=== PATIENT | female | born 1965 | race Caucasian/White ===

== ENCOUNTER → 2016-03-11 | Outpatient (CLI) | payer BC ==
[~2016-03-11] MED LIST: AMIT25TA9 PO; BENZ200C25 PO; BPR75T PO; CALC600T PO; CEFD300C3 PO; CHOL10003 PO; CHOL200014 PO; CITA40TA19 PO; CLOT15CR4 TP; CYCL10TA9 PO; DEXL60CA PO; DEXL60CA5 PO; DICL75TA2 PO; ESCI10TA55 PO; ESCI20TA2 PO; ESCI20TA38 PO; ESCT10T; ESCT10T PO; GABA600T2 PO; HYDR-3583; HYDR-3720 PO; HYDR-757 PO; HYDR1CAP2 PO; IBP800T PO; IBUP-15 PO; LISI10TA PO; LISI1TAB8 PO; LISI2.5T PO; LOSA1TAB15; LTRS15C TOP; METH4TAB PO; MTF500T PO; MULT-974 PO; NAPR-243 PO; NITR-65 PO; ONDA8TAB6 PO; ONDA8TAB9 PO; ONDAN4ODT PO; PANT40TA3 PO; PHEN200T27 PO; PNT40TEC PO; PRD50T PO; PRX20T PO; SCR1T1 PO; SUCR1TAB36 PO; SULF-222 PO; SULF1TAB38 PO; TIZA2TAB3 PO; TR1O15 TP; TRM50T PO; ZOLP12.5; metformin
--- OUTSIDE RECORDS SUMMARY | 2016-03-11 12:26 | XMS REPORT | Continuity of Care Document ---
Author Author [facility] Organization [facility] Address Unknown Phone Unavailable Care Team Providers Care Revival Clerk Name Role Phone Wally Patton PCP Unavailable Source Comments Some departments are not documenting in the electronic medical record. If you do not see the information that you expected, contact Release of Information in the Health Information Management department at [phone] for further assistance in locating additional records.[facility] Active Allergies and Adverse Reactions No Known Allergies Current Medications Prescription Sig. Disp. Refills Start End Date Status Date LISINOPRIL PO Take 5 mg by mouth Daily. Active (pt hasn't taken x 2 months) oxycodone/acetaminophen Take 1-2 Tabs by mouth 110 0 02/07/20 Active (PERCOCET) 5/325 mg Every 4 Hours as needed 09 tablet for Pain. senna/docusate Take 2 Tabs by mouth 50 1 02/07/20 Active (SENOKOT-S) 8.6/50 mg Twice Daily. 09 tablet Active Problems Problem Noted Date Back pain with radiation 02/06/2009 Social History Tobacco Use Types Packs/Day Years Used Date Never Smoker Alcohol Use Drinks/Week oz/Week Comments No Last Filed Vital Signs Vital Sign Reading Time Taken Blood Pressure 126/75 02/06/2009 5:50 AM HAND POTTER Pulse 82 02/06/2009 5:50 AM HAND POTTER Temperature 36.4 C (97.5 F) 02/06/2009 5:50 AM HAND POTTER Respiratory Rate - - Height 1.626 m (5' 4.02") 01/31/2009 6:00 AM HAND POTTER Weight 106 kg (233 lb 11 oz) 01/31/2009 6:00 AM HAND POTTER Body Mass Index 40.09 01/31/2009 6:00 AM HAND POTTER Oxygen Saturation 93% 02/06/2009 5:50 AM HAND POTTER Plan of Care Health Maintenance Due Date Last Done Comments Hepatitis C Screening 1965 Physical (Comprehensive) 01/12/1972 Exam Pertussis Vaccine 01/12/1976 Tetanus Vaccine 1982 Cervical Cancer Screening 1986 Breast Cancer Screening 2005 Colorectal Cancer 2015 Screening Influenza Vaccine 11/08/2015 Results from Last 3 Months Not on file
--- NOTE | 2016-03-12 19:32 | Diagnostic Imaging Report ---
Bilateral screening mammogram The current study was also evaluated with a Computer Aided Detection (CAD) system. Indication: Screening. No current complaints stated on the questionnaire. COMPARISON: 03/21/13. FINDINGS: The breasts are composed of heterogeneously dense parenchyma which may decrease mammographic sensitivity. There is stable global asymmetry in the breast parenchyma with prominent upper left breast area of density not changed from 2014. There is also mention of stability of this finding on prior report since 2007 and 2008 studies. There is no new suspicious mass or calcification noted. Allowing for technique and positional differences, no suspicious change is seen. IMPRESSION: No significant change. ACR BI-RADS Category 2: Benign findings. Result letter will be mailed to the patient. Note: At least 10% of breast cancer is not imaged by mammography. Dictated by: Dictated on workstation # [id number]
--- NOTE | 2016-03-14 11:35 | ECHOCARDIOGRAPHY REPORT ---
PROCEDURE PHYSICIAN: MEGAN MASON DATE OF PROCEDURE: 03/11/2016 TWO DIMENSIONAL ECHOCARDIOGRAM REPORT PRIMARY PHYSICIAN: Ally Manzanares OTHER PHYSICIAN: REFERRING PHYSICIAN: ORDERING PHYSICIAN: ATTENDING PHYSICIAN: Katy Do APRN FAMILY PHYSICIAN: READING PHYSICIAN: INDICATION FOR THE PROCEDURE: Heart murmur MEASUREMENTS DERIVED VALUES LV DIAMETER (LAX) NORMALS NORMALS Diastolic (3.6-5.2) Eject. Fract. (60%+/-6%) Systolic (2.3-3.9) Diastolic Vol. % Shortening (0.22-0.42) Systolic Vol. Aortic Root IVS THICKNESS Diastolic (0.6-1.1) LVPW THICKNESS Diastolic (0.6-1.1) LA DIAMETER Systolic (2.1-3.7) FINDINGS: 1. Sinus rhythm. 2. Left atrium size is normal. 3. Aortic root is normal. 4. LV size and function is normal. LVEF is 60 to 70%. 5. There is mild concentric LVH is present. Diastolic intraventricular septal diameter is 1.2 cm. 6. There is no wall motion abnormality. 7. There is no significant diastolic dysfunction present. 8. There is no pericardial effusion. 9. IVC is not well visualized. VALVULAR STRUCTURE OF THE HEART: There is mild tricuspid regurgitation with RVSP of 7 mmHg. Mild mitral regurgitation is noted. There is no significant aortic valve pathology. There is no significant pulmonic valve pathology. CONCLUSION: 1. LV and RV size and function is normal. 2. LVEF is 60 to 70%. 3. There is no significant valvular heart disease. 4. Pulmonary pressures are normal. 5. Mild concentric LVH is present. Job ID: [id number] Dictated Date: 03/13/2016 20:59:13 Paraprofessional Aide Teacher Date: 03/14/2016 11:27:54 / lindy
== END ==
LOC: RAD 12:21
PROVIDERS: ATTEND Nurse Practitioner Family
DX: Z12.31 Encounter for screening mammogram for malignant neoplasm of breast (principal)
CPT/HCPCS: 93306

== ENCOUNTER 2016-04-14 13:13 | Outpatient (RCR) | payer BC ==
[~2016-04-14 13:13] MED LIST changes: -ONDA8TAB9 PO; -TR1O15 TP
--- OUTSIDE RECORDS SUMMARY | 2016-04-14 13:17 | XMS REPORT | Continuity of Care Document ---
Author Author [facility] Organization [facility] Address Unknown Phone Unavailable Care Team Providers Care Quarter Backer Name Role Phone Wally Patton PCP Unavailable Source Comments Some departments are not documenting in the electronic medical record. If you do not see the information that you expected, contact Release of Information in the Health Information Management department at [phone] for further assistance in locating additional records.[facility] Active Allergies and Adverse Reactions No Known [...] Taken Blood Pressure 126/75 02/06/2009 5:50 AM [facility]FITTER CABIN Pulse 82 02/06/2009 5:50 AM [facility] CABIN Temperature 36.4 C (97.5 F) 02/06/2009 5:50 AM OUTF[facility] CABIN Respiratory Rate - - Height 1.626 m (5' 4.02") 01/31/2009 6:00 AM [facility] CABIN Weight 106 kg (233 lb 11 oz) 01/31/2009 6:00 AM [facility] CABIN Body Mass Index 40.09 01/31/2009 6:00 AM [facility] CABIN Oxygen Saturation 93% 02/06/2009 5:50 AM [facility] CABIN Plan of Care Health Maintenance Due Date Last Done Comments Hepatitis C Screening 1965 Physical (Comprehensive) 01/12/1972 Exam Pertussis Vaccine 01/12/1976 Tetanus Vaccine 1982 Cervical Cancer Screening 1986 Breast Cancer Screening 2005 Colorectal Cancer 2015 Screening Influenza Vaccine 11/08/2015 Results from Last 3 Months Not on file
[2016-06-28] MEDS ORDERED: TR1O15 TP (12:17)
[2016-06-28] MEDS ORDERED: ONDA8TAB9 PO (12:19)
== END 2016-07-13 | disposition home or self-care (01) ==
LOC: CARD 13:13
PROVIDERS: ATTEND Internal Medicine Interventional Cardiology
DX: R07.9 Chest pain, unspecified (principal); R06.00 Dyspnea, unspecified; I10 Essential (primary) hypertension; G47.33 Obstructive sleep apnea (adult) (pediatric)
CPT/HCPCS: 93225; 93226

== ENCOUNTER 2016-06-28 09:36 | Emergency (ER) | payer BC ==
[~2016-06-28] VITALS: Ht 165.1 cm; Wt 104.3 kg
[2016-06-28 10:59] LABS: BASOPHILS % (AUTO) 0 % (0-10); EOSINOPHILS % (AUTO) 0 % (0-10); LYMPHOCYTES # (AUTO) 0.4 X 10^3 (1.0-4.0); LYMPHOCYTES % (AUTO) 5 % (12-44); MEAN CORPUSCULAR HEMOGLOBIN 26 PG (25-34); MEAN CORPUSCULAR HGB CONC 33 G/DL (32-36); MEAN CORPUSCULAR VOLUME 81 FL (80-99); MEAN PLATELET VOLUME 10.4 FL (7.4-10.4); MONOCYTES # (AUTO) 0.5 X 10^3 (0.0-1.0); MONOCYTES % (AUTO) 6 % (0-12); NEUTROPHILS # (AUTO) 7.2 X 10^3 (1.8-7.8); NEUTROPHILS % (AUTO) 88 % (42-75); PLATELET COUNT 309 10^3/uL (130-400); RED BLOOD COUNT 5.09 10^6/uL (4.35-5.85); RED CELL DISTRIBUTION WIDTH 14.5 % (10.0-14.5); WHITE BLOOD COUNT 8.2 10^3/uL (4.3-11.0)
[2016-06-28] MEDS ORDERED: LACTATED RINGERS 1,000 ML IV SCH ×2 (11:00→11:30)
--- NOTE | 2016-06-28 11:05 | ED GI ---
General Chief Complaint: Abdominal/GI Problems Stated Complaint: VOMITING, DIARRHEA Nursing Triage Note: PT C/O N/V/D SINCE APPROX 0 LAST NOC. PT IS FEBRILE AT THIS TIME AND IS ALSO C/O BODY ACHES. Sepsis Screen: Possible Sepsis Risk Source of Information: Patient Exam Limitations: No Limitations History of Present Illness Time Seen By Provider: 11:03 Initial Comments To ER with reports of nausea vomiting diarrhea since last night. This began about 10 p.m. She states that she spent most of the night on the toilet vomiting and with diarrhea. She states the diarrhea was watery and without obvious blood or mucus. She denies any recent travel history or eating out recently antibiotic use. She also reports some shortness of breath since last night and some intermittent left leg swelling as well as a rash to the anterior left lower leg. Rash has been present for several months and she initially thought this was just eczema she states it will not go away. No fevers. She denies abdominal pain but does report some joint pains. Timing/Duration: 12-24 Hours Severity/Quality: Mild Radiation: No Radiation Associated Symptoms: No Back Pain, No Chest Pain, No Diaphoresis, No Fever/ Chills, No Fatigue, No Headache, No Heartburn, Nausea/Vomiting, No Rash, Shortness of Air, No Swelling/Mass in Abdomen, No Syncope, No Weakness Allergies and Home Medications Allergies Coded Allergies: No Known Drug Allergies (Unverified , 03/01/09) Home Medications Amitriptyline HCl 25 Mg Tablet, 25 MG PO HS, (Reported) Cholecalciferol (Vitamin D3) 2,000 Unit Tablet, 2,000 UNIT PO DAILY, (Reported) Clotrimazole/Betamethasone Dip 15 Gm Cream..g., 15 GM TP BID, #30 Prescribed by: TARIQ GUTIERREZ on 10/26/15 1411 Dexlansoprazole 60 Mg Cap.bp, 60 MG PO DAILY, #30 Prescribed by: TARIQ GUTIERREZ on 10/26/15 1411 Diclofenac Sodium 75 Mg Tablet., 75 MG PO BID, (Reported) Escitalopram Oxalate 10 Mg Tablet, 10 MG PO HS, (Reported) Gabapentin 600 Mg Tablet, 600 MG PO TID, (Reported) Lisinopril/Hydrochlorothiazide 1 Each Tablet, 1 TAB PO DAILY, (Reported) Multivitamin 1 Each Tablet, 1 EACH PO DAILY, (Reported) Pantoprazole Sodium 40 Mg Tablet.dr, 40 MG PO DAILY, (Reported) Sucralfate 1 Gm Tablet, 1 GM PO QID, #120 Prescribed by: TARIQ GUTIERREZ on 10/26/15 1411 Tizanidine HCl 2 Mg Tablet, 2 MG PO HS, (Reported) Triamcinolone Acet 15 Gm Oint, 1 GM TP BID, #1 Apply a small amount topically to the affected area on the left leg twice daily for 5-7 days. Prescribed by: NE BURGOS on 06/28/16 1217 Review of Systems Constitutional: see HPI EENTM: No Symptoms Reported Respiratory: See HPI, Shortness of Air Gastrointestinal: See HPI, Abdominal Pain Genitourinary: No Symptoms Reported Musculoskeletal: no symptoms reported Skin: no symptoms reported Psychiatric/Neurological: No Symptoms Reported Endocrine: No Symptoms Reported Hematologic/Lymphatic: No Symptoms Reported Past Pluuobi-Xkrduq-[id number] Hx Patient Social History Alcohol Use: Denies Use Recreational Drug Use: No Smoking Status: Never a Smoker 2nd Hand Smoke Exposure: No Recent Foreign Travel: No Contact w/Someone Who Travel: No Recent Infectious Disease Expo: No Recent Hopitalizations: No Immunizations Up To Date Tetanus Booster (TDap): More than 5yrs Date of Influenza Vaccine: Dec 16, 2013 Seasonal Allergies Seasonal Allergies: No Surgeries HX Surgeries: Yes (BACK SX RODS PLACED, neck sx) Surgeries: Gallbladder, Hysterectomy, Orthopedic Respiratory Hx Respiratory Disorders: Yes (sleep apnea-uses cpap) Respiratory Disorders: Sleep Apnea Cardiovascular Hx Cardiac Disorders: No Cardiac Disorders: Hypertension Neurological Hx Neurological Disorders: No Reproductive System Hx Reproductive Disorders: Yes Sexually Transmitted Disease: No HIV/AIDS: No Female Reproductive Disorders: Polycystic Ovarian Dis 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 Genitourinary Hx Genitourinary Disorders: No Gastrointestinal Hx Gastrointestinal Disorders: No Gastrointestinal Disorders: Gastroesophageal Reflux Musculoskeletal Hx Musculoskeletal Disorders: Yes Musculoskeletal Disorders: Back Injury Endocrine Hx Endocrine Disorders: No Endocrine Disorders: Diabetes, Non-Insulin dep HEENT HX ENT Disorders: No Cancer Hx Cancer: No Psychosocial Hx Psychiatric Problems: No Behavioral Health Disorders: Anxiety Integumentary HX Skin/Integumentary Disorder: No Blood Transfusions Hx Blood Disorders: No Adverse Reaction to a Blood Tr: No Family Medical History Significant Family History: No Pertinent Family Hx Physical Exam Vital Signs VS - Last 72 Hours, by Label 06/28/16 10:40 Temp 100.3 Pulse 124 Resp 16 B/P (MAP) 185/115 Pulse Ox 97 O2 Delivery Room Air Capillary Refill : Less Than 3 Seconds General Appearance: WD/WN, no apparent distress HEENT: PERRL/EOMI, normal ENT inspection Neck: non-tender, full range of motion Respiratory: normal breath sounds, no respiratory distress, no accessory muscle use Cardiovascular: no murmur, tachycardia Gastrointestinal: normal bowel sounds, non tender, soft Extremities: normal range of motion, non-tender, swelling (1+ pitting edema left lower extremity), other (is a palm-sized area of a slightly scaly erythematous/pinkish rash to the anterior left lower leg) Neurologic/Psychiatric: alert, normal mood/affect, oriented x 3 Skin: normal color, warm/dry Progress/Results/Core Measures Results/Orders Lab Results Laboratory Tests Test 06/28/16 10:40 06/28/16 12:08 Range/Units White Blood Count 8.2 4.3-11.0 10^3/uL Red Blood Count 5.09 4.35-5.85 10^6/uL Hemoglobin 13.4 11.5-16.0 G/DL Hematocrit 41 35-52 % Mean Corpuscular Volume 81 80-99 FL Mean Corpuscular Hemoglobin 26 25-34 PG Mean Corpuscular Hemoglobin Concent 33 32-36 G/DL Red Cell Distribution Width 14.5 10.0-14.5 % Platelet Count 309 130-400 10^3/uL Mean Platelet Volume 10.4 7.4-10.4 FL Neutrophils (%) (Auto) 88 H 42-75 % Lymphocytes (%) (Auto) 5 L 12-44 % Monocytes (%) (Auto) 6 0-12 % Eosinophils (%) (Auto) 0 0-10 % Basophils (%) (Auto) 0 0-10 % Neutrophils # (Auto) 7.2 1.8-7.8 X 10^3 Lymphocytes # (Auto) 0.4 L 1.0-4.0 X 10^3 Monocytes # (Auto) 0.5 0.0-1.0 X 10^3 Eosinophils # (Auto) 0.0 0.0-0.3 10^3/uL Basophils # (Auto) 0.0 0.0-0.1 10^3/uL Neutrophils % (Manual) 86 % Lymphocytes % (Manual) 7 % Monocytes % (Manual) 5 % Eosinophils % (Manual) 0 % Basophils % (Manual) 0 % Band Neutrophils 0 % Blood Morphology Comment NORMAL Sodium Level 141 135-145 MMOL/L Potassium Level 4.3 3.6-5.0 MMOL/L Chloride Level 108 H 98-107 MMOL/L Carbon Dioxide Level 21 21-32 MMOL/L Anion Gap 12 5-14 MMOL/L Blood Urea Nitrogen 11 7-18 MG/DL Creatinine 0.76 0.60-1.30 MG/DL Estimat Glomerular Filtration Rate > 60 BUN/Creatinine Ratio 14 Glucose Level 126 H 70-105 MG/DL Calcium Level 9.2 8.5-10.1 MG/DL Total Bilirubin 0.5 0.1-1.0 MG/DL Aspartate Amino Transf (AST/SGOT) 32 5-34 U/L Alanine Aminotransferase (ALT/SGPT) 34 0-55 U/L Alkaline Phosphatase 135 40-136 U/L B-Type Natriuretic Peptide 12.5 <100.0 PG/ML Total Protein 7.6 6.4-8.2 G/DL Albumin 4.4 3.2-4.5 G/DL Lipase 21 8-78 U/L My Orders Orders - NE BURGOS AUTOMOTIVE LEASING SALES REPRESENTATIVE Cbc With Automated Diff (06/28/16 10:53) Comprehensive Metabolic Panel (06/28/16 10:53) Ua Culture If Indicated (06/28/16 10:53) Lipase (06/28/16 10:53) Saline Lock/Iv-Start (06/28/16 10:53) Lactated Ringers (Lr 1000 Ml Iv Solution (06/28/16 11:00) Manual Differential (06/28/16 10:40) Us Venous Lower Ext Lt (06/28/16 11:02) Ct Angio Chest W (06/28/16 11:02) Iohexol Injection (Omnipaque 350 Mg/Ml 1 (06/28/16 11:15) Ns (Ivpb) (Sodium Chloride 0.9% Ivpb Bag (06/28/16 11:15) Lactated Ringers (Lr 1000 Ml Iv Solution (06/28/16 11:30) BNP (06/28/16 11:18) Medications Given in ED Current Medications Medications Dose Ordered Sig/Malka Route Start Time Stop Time Status Last Admin Dose Admin Iohexol 150 ml ONCE ONCE IV 06/28/16 11:15 06/28/16 11:16 DC 06/28/16 11:24 125 ML Sodium Chloride 100 ml ONCE ONCE IV 06/28/16 11:15 06/28/16 11:16 DC 06/28/16 11:24 80 ML Vital Signs/I&O Vital Sign - Last 12Hours 06/28/16 10:40 Temp 100.3 Pulse 124 Resp 16 B/P (MAP) 185/115 Pulse Ox 97 O2 Delivery Room Air Blood Pressure Mean: 138 Diagnostic Imaging Diagonstic Imaging: Xray Comments NAME: HARRY MEDEL [employer] REC#: [id number] PT STATUS: REG ER : 1965 PHYSICIAN: NE BURGOS APRN ADMIT DATE: 06/28/16/ER Draft Date of Exam:06/28/16 CT ANGIO CHEST W PROCEDURE: CT angiography of the chest with contrast. TECHNIQUE: Multiple contiguous axial images were obtained through the chest after uneventful bolus administration of intravenous contrast. Reconstructed CTA MIP acquisitions were also performed. INDICATION: Left foot swelling The lungs are clear. There are no effusions or pneumothoraces. There are no pulmonary emboli seen. Aorta appears normal. There is no hilar or mediastinal lymphadenopathy. Impression: Negative CTA chest. Dictated on workstation # [id number] Dict: 06/28/16 1142 Trans: 06/28/16 1150 [facility] [id number] Interpreted by: CARLOS TO Electronically signed by: Departure Impression Impression: Primary Impression: Nausea vomiting and diarrhea Additional Impressions: Dyspnea Volume depletion Departure-Patient Inst. Decision time for Depature: 12:14 Referrals: JONNATHAN MANZANARES MD (PCP) Primary Care Physician Patient Instructions: [id number] Add. Discharge Instructions: 1. Use the steroid cream to your left lower leg twice daily for 5 days 2. Follow-up with Dr. Manzanares 3. Use [id number]-jpesieq Imodium as needed for diarrhea Or. Return to ER for any abdominal pain, high fevers or other concerns. All discharge instructions reviewed with patient and/or family. Voiced understanding. Scripts Ondansetron (Zofran Odt) 8 Mg Tab.rapdis 8 MG PO Q6H Y for NAUSEA/VOMITING-1ST LINE, #10 TAB Prov: NE BURGOS APRN 06/28/16 Triamcinolone Acet (Triamcinolone Acetonide 0.1% Ointment) 15 Gm Oint 1 GM TP BID, #1 TUBE Apply a small amount topically to the affected area on the left leg twice daily for 5-7 days. Prov: NE BURGOS APRN 06/28/16 Copy Copies To 1: JONNATHAN MANZANARES MD, PETER J APRN Jun 28, 2016 11:05
[2016-06-28 11:11] LABS: ALANINE AMINOTRANSFERASE 34 U/L (0-55); ALBUMIN 4.4 G/DL (3.2-4.5); ANION GAP 12 MMOL/L (5-14); ASPARTATE AMINO TRANSFERASE 32 U/L (5-34); BILIRUBIN,TOTAL 0.5 MG/DL (0.1-1.0); BLOOD UREA NITROGEN 11 MG/DL (7-18); BUN/CREATININE RATIO 14; CALCIUM 9.2 MG/DL (8.5-10.1); CARBON DIOXIDE 21 MMOL/L (21-32); CHLORIDE 108 MMOL/L (98-107); CREATININE SERUM 0.76 MG/DL (0.60-1.30); GFR ESTIMATED > 60; GLUCOSE 126 MG/DL (70-105); LIPASE 21 U/L (8-78); POTASSIUM 4.3 MMOL/L (3.6-5.0); SODIUM 141 MMOL/L (135-145); TOTAL PROTEIN 7.6 G/DL (6.4-8.2)
[2016-06-28] MEDS ORDERED: NS 100 ML (IVPB) BAG IV ONE (11:15)
[2016-06-28] MEDS ORDERED: IOHEXOL 350 MG/ML 150 ML (OMNIPAQUE 350) VIAL IV ONE (11:15)
[2016-06-28 11:22] LABS: BAND NEUTROPHILS 0 %; BASOPHILS % (MANUAL) 0 %; EOSINOPHILS % (MANUAL) 0 %; LYMPHOCYTES % (MANUAL) 7 %; NEUTROPHILS % (MANUAL) 86 %
--- NOTE | 2016-06-28 11:51 | Diagnostic Imaging Report ---
PROCEDURE: CT angiography of the chest with contrast. TECHNIQUE: Multiple contiguous axial images were obtained through the chest after uneventful bolus administration of intravenous contrast. Reconstructed CTA MIP acquisitions were also performed. INDICATION: Left foot swelling The lungs are clear. There are no effusions or pneumothoraces. There are no pulmonary emboli seen. Aorta appears normal. There is no hilar or mediastinal lymphadenopathy. Impression: Negative CTA chest. Dictated by: Dictated on workstation # [id number]
[2016-06-28 12:16] LABS: BILIRUBIN,URINE NEGATIVE (NEGATIVE); KETONES,URINE NEGATIVE (NEGATIVE); LEUKOCYTE ESTERASE ,URINE 1+ (NEGATIVE); NITRITE,URINE NEGATIVE (NEGATIVE); PH,URINE 6 (5-9); PROTEIN,URINE NEGATIVE (NEGATIVE); UROBILINOGEN,URINE NORMAL (NORMAL)
[2016-06-28] MEDS ORDERED: TR1O15 TP (12:17)
[2016-06-28] MEDS ORDERED: ONDA8TAB9 PO (12:19)
[2016-06-28 12:27] LABS: SQUAMOUS EPITHELIAL CELL,UR 0-2 /HPF; WBC,URINE RARE /HPF
--- NOTE | 2016-06-28 12:46 | Diagnostic Imaging Report ---
PROCEDURE: US left lower extremity venous. TECHNIQUE: Multiple real-time grayscale images were obtained over the left lower extremity in various projections. Additional duplex Doppler and color Doppler images were also obtained. INDICATION: Leg swelling and shortness of breath. FINDINGS: There is normal compression, flow and augmentation demonstrated in the left common femoral vein to the popliteal vein. Greater saphenous junction is patent. Visualized calf veins are patent. IMPRESSION: No sonographic evidence of left lower extremity deep venous thrombosis. Dictated by: Dictated on workstation # [id number]
[2016-06-28] MEDS ORDERED: ONDANSETRON 4 MG/2 ML (SDV) Z0FRAN IVP ONE (13:00)
[2016-06-28 14:18] VITALS: BP 147/100
== END 2016-06-28 14:18 | disposition home or self-care (01) ==
LOC: EDUNIT# 09:36 → ER 09:38
DX: R11.2 Nausea with vomiting, unspecified (principal); R19.7 Diarrhea, unspecified; R06.00 Dyspnea, unspecified; E86.9 Volume depletion, unspecified; R22.42 Localized swelling, mass and lump, left lower limb; I10 Essential (primary) hypertension; Z79.899 Other long term (current) drug therapy
CPT/HCPCS: 36415; 71275; 80053; 81000; 83690; 83880; 85007; 85027; 96361; 96374

== ENCOUNTER 2016-08-08 11:12 | Outpatient (RCR) | payer BC ==
[~2016-08-08 11:12] MED LIST changes: +ONDA8TAB9 PO; +TR1O15 TP
== END 2016-08-22 08:05 | disposition home or self-care (01) ==
PROVIDERS: ATTEND Physician Assistant
DX: M48.06 Spinal stenosis, lumbar region (principal); M54.16 Radiculopathy, lumbar region; M46.1 Sacroiliitis, not elsewhere classified

== ENCOUNTER → 2017-05-19 | Outpatient (CLI) | payer MEDICARE, BC ==
--- NOTE | 2017-05-19 19:14 | Diagnostic Imaging Report ---
INDICATION: Digital mammogram bilateral screening. This study was compared to the prior exams of 03/11/16 and 03/21/13. At this time, there are no current complaints. The current study was also evaluated with a Computer Aided Detection (CAD) system. FINDINGS: The fibroglandular tissue in both breasts is heterogeneously dense. This does limit the sensitivity of this exam. Overall, there does not appear to have been any significant change when compared to the prior study. No primary or secondary sign of malignancy is noted. IMPRESSION: There is no radiographic evidence for malignancy. ACR BI-RADS Category 1: Negative. Result letter will be mailed to the patient. Note: At least 10% of breast cancer is not imaged by mammography. Dictated by: Dictated on workstation # [id number]
== END ==
LOC: RAD 08:12
PROVIDERS: ATTEND Nurse Practitioner Family
DX: Z12.31 Encounter for screening mammogram for malignant neoplasm of breast (principal)
CPT/HCPCS: 77067

== ENCOUNTER 2017-09-12 12:42 | Emergency (ER) | payer MEDICARE, OTHER ==
[~2017-09-12] VITALS: Ht 165.1 cm; Wt 104.3 kg
--- NOTE | 2017-09-12 14:13 | ED EENT ---
History of Present Illness General Chief Complaint: Eye Problems Stated Complaint: R EYE SWELLING/UNKNOWN CAUSE Nursing Triage Note: PT AMBULATED TO 3 W/O DIFFICULTIES. PT STATES SHE BEGAN HAVING R EYE SWELLING THAT BEGAN A COUPLE OF DAYS AGO. PT ALSO STATES THERE IS TENDERNESS IN THE LYMPH NODES ON THE RIGHT SIDE OF HER NECK. PT DENIES ANY INJURY, FOREIGN OBJECT OR TRAUMA. PT STATES SHE DID HAVE THE LENSES IN BOTH EYES REPLACED APPROXIMATELY 6 MONTHS AGO. History of Present Illness Date Seen by Provider: Sep 12, 2017 Time Seen by Provider: 13:45 Initial Comments 52-year-old female presents for right periorbital swelling and pain. She reports this is been going on for approximately 3 days with no improvement. She denies any purulent discharge from the eye. She reports trace blurry vision and minimal eye pain. She had cataract surgery right eye April 2017 and left eye March 2017. She's had no trauma to the right eye and denies feeling of foreign body sensation. No pre-arrival treatment to the right eye. She has been taking ibuprofen and Tylenol for pain and low-grade fevers. Timing/Duration: gradual Location: eye (R) Prearrival Treatment: over the counter meds Associated Symptoms: fever (low-grade 99-100) Allergies and Home Medications Allergies Coded Allergies: No Known Drug Allergies (Unverified , 03/01/09) Home Medications Amitriptyline HCl 25 Mg Tablet, 25 MG PO HS, (Reported) Amoxicillin/Potassium Clav 1 Each Tablet, 1 EACH PO BID Prescribed by: EDU ANN on 09/12/17 1435 Cholecalciferol (Vitamin D3) 2,000 Unit Tablet, 2,000 UNIT PO DAILY, (Reported) Clotrimazole/Betamethasone Dip 15 Gm Cream..g., 15 GM TP BID Prescribed by: TARIQ GUTIERREZ on 10/26/15 1411 Dexlansoprazole 60 Mg Cap.bp, 60 MG PO DAILY Prescribed by: TARIQ GUTIERREZ on 10/26/15 1411 Diclofenac Sodium 75 Mg Tablet.dr, 75 MG PO BID, (Reported) Escitalopram Oxalate 10 Mg Tablet, 10 MG PO HS, (Reported) Gabapentin 600 Mg Tablet, 600 MG PO TID, (Reported) Lisinopril/Hydrochlorothiazide 1 Each Tablet, 1 TAB PO DAILY, (Reported) Multivitamin 1 Each Tablet, 1 EACH PO DAILY, (Reported) Ondansetron 8 Mg Tab.rapdis, 8 MG PO Q6H PRN for NAUSEA/VOMITING-1ST LINE Prescribed by: NE BURGOS on 06/28/16 1219 Pantoprazole Sodium 40 Mg Tablet.dr, 40 MG PO DAILY, (Reported) Sucralfate 1 Gm Tablet, 1 GM PO QID Prescribed by: TARIQ GUTIERREZ on 10/26/15 1411 Tizanidine HCl 2 Mg Tablet, 2 MG PO HS, (Reported) Triamcinolone Acet 15 Gm Oint, 1 GM TP BID Apply a small amount topically to the affected area on the left leg twice daily for 5-7 days. Prescribed by: NE BURGOS on 06/28/16 1217 Patient Home Medication List Home Medication List Reviewed: Yes Review of Systems Constitutional: no symptoms reported, see HPI Eyes: Blurred Vision; Denies Drainage, Denies Decreased Acuity, Denies Foreign Body Sensation; Inflammation, Pain, Photophobia; Denies Previous Injury, Denies Shadows, Denies Tunnel Vision, Denies Vision Changes, Denies Contact Lenses All Other Systems Reviewed Negative Unless Noted: Yes Past Hnzgbqb-Qnbdqk-Nwflbn Hx Past Med/Social Hx: Reviewed Nursing Past Med/Soc Hx Patient Social History Alcohol Use: Denies Use Recreational Drug Use: No 2nd Hand Smoke Exposure: No Recent Foreign Travel: No Contact w/Someone Who Travel: No Recent Infectious Disease Expo: No Recent Hopitalizations: No Physical Abuse: No Sexual Abuse: No Immunizations Up To Date Tetanus Booster (TDap): More than 5yrs Date of Influenza Vaccine: Dec 16, 2013 Seasonal Allergies Seasonal Allergies: No Past Medical History Surgeries: Yes (BACK SX RODS PLACED, neck sx) Gallbladder, Hysterectomy, Orthopedic Respiratory: Yes (sleep apnea-uses cpap) Sleep Apnea Cardiac: Yes Hypertension Neurological: No Reproductive Disorders: Yes Female Reproductive Disorders: Polycystic Ovarian Dis [employer] History: Hysterectomy Sexually Transmitted Disease: No HIV/AIDS: No Gastrointestinal: No Gastroesophageal Reflux Musculoskeletal: Yes Back Injury Endocrine: No Diabetes, Non-Insulin dep Cancer: No Psychosocial: No Anxiety Nursing Suicide Risk Score: 0 Integumentary: No Blood Disorders: No Adverse Reaction/Blood Tranf: No Family Medical History No Pertinent Family Hx Visual Acuity : Eye Location: Right Vision Acuity Degree: 20/30 Physical Exam Vital Signs Vital Signs - First Documented 09/12/17 09/12/17 13:00 14:45 Temp 99.2 Pulse 82 Resp 16 B/P (MAP) 154/110 (125) Pulse Ox 97 O2 Delivery Room Air Height, Weight, BMI Height: 5', 5.00" Weight: 230lbs 0.0oz, [id number] Method:Stated ,38.3BMI General Appearance: WD/WN, no apparent distress Eyes: right eye lid inflammation, right eye papilledema, right eye other ( marked periorbital inflammation, no pain with extraocular eye movement. No frontal or maxillary sinus tenderness.); left eye normal inspection; bilateral eye PERRL, bilateral eye EOMI Ears: bilateral ear auricle normal, bilateral ear canal normal, bilateral ear TM normal Nose: normal inspection; No active bleeding, No discharge Mouth/Throat: normal mouth inspection, pharynx normal Neck: full range of motion, supple, normal inspection, lymphadenopathy (R) Cardiovascular: normal peripheral pulses, regular rate, rhythm Respiratory: chest non-tender, lungs clear Neurologic/Psychiatric: no motor/sensory deficits, alert, normal mood/affect, oriented x 3 Skin: normal color, warm/dry Progress/Results/Core Measures Results/Orders My Orders Orders - EDU ANN Ct Orbit Wo (09/12/17 13:39) Acetaminophen Tablet/Caplet (Tylenol T (09/12/17 14:31) Vital Signs/I&O 09/12/17 09/12/17 13:00 14:45 Temp 99.2 98.4 Pulse 82 88 Resp 16 14 B/P (MAP) 154/110 (125) 132/92 Pulse Ox 97 O2 Delivery Room Air Room Air Blood Pressure Mean: 125 Progress Progress Note : Time: 13:45 Progress Note Initial evaluation completed, recommended orbital CT and reevaluation. [address] findings with the patient, soft tissue cellulitis but no abscess or inflammation extending into the orbit. Will give Tylenol 650 mg orally for pain. discharge instructions and return precautions discussed with the patient, all questions answered. Diagnostic Imaging Diagonstic Imaging: CT Plain Films/CT/US/NM/MRI: other (orbital) Comments NAME: [facility] REC#: [id number] PT STATUS: REG ER : 1965 PHYSICIAN: EDU ANN ADMIT DATE: 09/12/17/ER Draft Date of Exam:09/12/17 CT ORBIT WO PROCEDURE: CT orbit without contrast. TECHNIQUE: Multiple contiguous axial images were obtained through the facial bones without the use of intravenous contrast. INDICATION: Facial swelling The axial images do show soft tissue edema/inflammation along the anterior aspect of the right maxillary sinus and, to a lesser extent, the right globe. The soft tissue edema appears to be confined to the preseptal area. There is no sign of an abscess. The globe itself is generally unremarkable and appears similar to the prior CT facial bone exam of 04/09/2013. The extraocular muscles and optic nerve are unremarkable and there is no sign of a retrobulbar mass. The left globe and orbital contents are also unremarkable. The bone windows show no sign of a fracture or of a destructive lesion. The sinuses, where visualized, and the intracranial contents, where visualized, are unremarkable. IMPRESSION: 1. There is soft tissue edema/inflammation along the anterior aspect of the right maxillary antrum and, to a lesser degree, the right globe. There is no sign of an abscess. 2. There is no evidence of an injury to the right globe and the intraorbital contents appear undisturbed. 3. No other abnormality is identified. Dictated on workstation # [id number] Dict: 09/12/17 1406 Trans: 09/12/17 1417 [facility] [id number] Interpreted by: SIMRAN SENA MD Electronically signed by: Departure Impression Primary Impression: Preseptal cellulitis of right eye Disposition: 01 HOME, SELF-CARE Condition: Stable Departure-Patient Inst. Decision time for Depature: 14:20 Referrals: JONNATHAN VANCE MD (PCP/Family) Primary Care Physician Patient Instructions: Cellulitis (Skin Infection), Adult (DC), Orbital Cellulitis Add. Discharge Instructions: Warm moist compresses to right eye 5-10 minutes every hour while awake. You may irrigate your eye with sterile contact saline rinse. Take all antibiotic as prescribed, even if I is improving. 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 You may alternate between Tylenol 650 mg and ibuprofen 600 mg every 4 hours for pain or fever. Return to emergency department or see your primary care provider immediately if extreme pain when moving the eye, discolored or foul smelling drainage from the eye, fever greater than 101 not relieved by Tylenol or ibuprofen, body aches, vision changes or new problems. All discharge instructions reviewed with patient and/or family. Voiced understanding. Scripts Amoxicillin/Potassium Clav (Augmentin 875-125 Tablet) 1 Each Tablet 1 EACH PO BID, #20 TAB 0 Refills Prov: EDU ANN 09/12/17 Copy Copies To 1: JONNATHAN VANCE MD, AMY ARNP Sep 12, 2017 14:13
--- NOTE | 2017-09-12 14:17 | Diagnostic Imaging Report ---
PROCEDURE: CT orbit without contrast. TECHNIQUE: Multiple contiguous axial images were obtained through the facial bones without the use of intravenous contrast. INDICATION: Facial swelling The axial images do show soft tissue edema/inflammation along the anterior aspect of the right maxillary sinus and, to a lesser extent, the right globe. The soft tissue edema appears to be confined to the preseptal area. There is no sign of an abscess. The globe itself is generally unremarkable and appears similar to the prior CT facial bone exam of 04/09/2013. The extraocular muscles and optic nerve are unremarkable and there is no sign of a retrobulbar mass. The left globe and orbital contents are also unremarkable. The bone windows show no sign of a fracture or of a destructive lesion. The sinuses, where visualized, and the intracranial contents, where visualized, are unremarkable. IMPRESSION: 1. There is soft tissue edema/inflammation along the anterior aspect of the right maxillary antrum and, to a lesser degree, the right globe. There is no sign of an abscess. 2. There is no evidence of an injury to the right globe and the intraorbital contents appear undisturbed. 3. No other abnormality is identified. Dictated by: Dictated on workstation # [id number]
[2017-09-12] MEDS ORDERED: ACETAMINOPHEN 325 MG TABLET PO STA (14:31)
[2017-09-12] MEDS ORDERED: AMOX-358 PO (14:35)
[2017-09-12 14:45] VITALS: BP 132/92
== END 2017-09-12 14:44 | disposition home or self-care (01) ==
LOC: EDUNIT# 12:42 → ER 12:43
DX: H05.011 Cellulitis of right orbit (principal); G47.30 Sleep apnea, unspecified; K21.9 Gastro-esophageal reflux disease without esophagitis; E11.9 Type 2 diabetes mellitus without complications; F41.9 Anxiety disorder, unspecified; I10 Essential (primary) hypertension; Z90.710 Acquired absence of both cervix and uterus; Z87.448 Personal history of other diseases of urinary system
CPT/HCPCS: 70480

== ENCOUNTER → 2018-10-25 | Outpatient (CLI) | payer MEDICARE, OTHER ==
[~2018-10-25] MED LIST changes: +AMOX-358 PO; -GABA600T2 PO; +GBPN600T PO; +HYDR-4226 PO; -HYDR-757 PO; -TIZA2TAB3 PO; +TIZA2TAB4 PO
--- NOTE | 2018-10-25 11:46 | Diagnostic Imaging Report ---
CLINICAL INDICATION: Patient with chronic neck pain with history of previous cervical spine surgery in 2017. Patient having increasing pain. EXAM: MRI of the cervical spine performed without IV contrast. Sequences include sagittal T2, sagittal T1, sagittal T2 fat-sat, and axial T2. COMPARISON: MRI of the cervical spine without contrast dated 05/17/2015. FINDINGS: Again seen postop changes to the cervical spine with C6-C7 anterior cervical disc fusion hardware with susceptibility artifact. There is no paraspinal soft tissue abnormality or fluid collection. Limited visualization of the posterior fossa is unremarkable. Cervical spinal cord has normal cord caliber with no abnormal signal. C1-C2: Unremarkable. C2-C3: Unremarkable. C3-C4: There is again seen small left uncinate spur which causes at least mild left neural foramen narrowing. There is no significant central canal or right neural foramen narrowing. C4-C5: There is subtle left uncinate spur. There is no significant central spinal canal or neural foramen narrowing. C5-C6: Again seen small posterior and left paracentral disc protrusion/herniation which has not significantly changed in size. There is resolution of the previously seen annular tear in the region. There is stable ligamentum flavum buckling and mild bilateral facet arthropathy. Stable moderate left neural foramen narrowing and moderate central canal narrowing. There is no significant right neural foramen narrowing. C6-C7: Stable mild left neural foramen narrowing suspected from vertebral body prominence. There is no significant central canal or right neural foramen narrowing. C7-T1: There is mild bilateral facet arthropathy. There is no significant central spinal canal or neural foramen narrowing. IMPRESSION: 1: There is interval resolution of the previously seen small annular tear involving the C5-C6 posterior disc herniation. Otherwise, there is stable appearance of the posterior disc herniation at C5-C6 level, facet arthropathy, and ligamentum flavum buckling which cause moderate left neural foramen narrowing and moderate central canal stenosis. 2: Stable C6-C7 anterior cervical disc fusion. 3: The remainder of this exam shows no significant interval change compared to the prior study of comparison. Dictated by: Dictated on workstation # [id number]
== END ==
LOC: RAD 10:03
PROVIDERS: ATTEND Nurse Practitioner Family
DX: M50.322 Other cervical disc degeneration at C5-C6 level (principal); M48.02 Spinal stenosis, cervical region; M50.222 Other cervical disc displacement at C5-C6 level; M46.92 Unspecified inflammatory spondylopathy, cervical region; Z98.1 Arthrodesis status
CPT/HCPCS: 72141

== ENCOUNTER 2019-02-07 10:40 | Emergency (ER) | payer MEDICARE, OTHER ==
[~2019-02-07] VITALS: Ht 165 cm; Wt 108.7 kg
--- NOTE | 2019-02-07 11:17 | ED Back Pain ---
General Chief Complaint: Back Problems Stated Complaint: BACK PAIN Source of Information: Patient Exam Limitations: No Limitations History of Present Illness Date Seen by Provider: Feb 07, 2019 Time Seen by Provider: 11:00 Initial Comments This is a 58-year-old female who presents to the emergency department with her with complaints exacerbation of chronic lower back pain with radiation to bilateral lower extremities. Patient denies having retention or incontinence of bowel or bladder. Patient reports that she was evaluated by her primary care provider recently for a rash on both of her upper extremities and giving a steroid shots as well as a steroid dose pack which did not help either of the rash or her back pain. Patient reports that she is to have another back surgery as well as neck surgery with Dr. Samuels but denies being in contact with him regarding the pain and she is currently experiencing.She denies any new injuries, just pain is not tolerable and more persistent. She is taking Ibuprofen 600-800 mg every 3-4 hours. Location: Lumbar Spine Timing/Duration: 1 Week Severity: Mild Radiation: Lower Legs Method of Injury: Other (no injury) Modifying Factors: Worse With Immobilization, Worse With Movement; Improves With Pain Medication Associated Symptoms: muscle spasms; No weakness; numbness in legs/feet, tingling in legs/feet; No sensory/motor loss; lower back pain; No loss of bladder control, No loss of bowel control Allergies and Home Medications Allergies Coded Allergies: No Known Drug Allergies (Unverified , 03/01/09) Home Medications Amitriptyline HCl 25 Mg Tablet, 25 MG PO HS, (Reported) Amoxicillin/Potassium Clav 1 Each Tablet, 1 EACH PO BID Prescribed by: EDU ANN on 09/12/17 1435 Cholecalciferol (Vitamin D3) 2,000 Unit Tablet, 2,000 UNIT PO DAILY, (Reported) Clotrimazole/Betamethasone Dip 15 Gm Cream..g., 15 GM TP BID Prescribed by: TARIQ GUTIERREZ on 10/26/15 1411 Cyclobenzaprine HCl 10 Mg Tablet, 10 MG PO Q8H PRN for SPASMS Prescribed by: EDU ANN on 02/07/19 1140 Dexlansoprazole 60 Mg Cap.bp, 60 MG PO DAILY Prescribed by: TARIQ GUTIERREZ on 10/26/15 1411 Diclofenac Sodium 75 Mg Tablet., 75 MG PO BID, (Reported) Escitalopram Oxalate 10 Mg Tablet, 10 MG PO HS, (Reported) Gabapentin 600 Mg Tablet, 600 MG PO TID, (Reported) Lisinopril/Hydrochlorothiazide 1 Each Tablet, 1 TAB PO DAILY, (Reported) Multivitamin 1 Each Tablet, 1 EACH PO DAILY, (Reported) Naproxen 500 Mg Tablet, 500 MG PO BID Prescribed by: EDU ANN on 02/07/19 1140 Ondansetron 8 Mg Tab.rapdis, 8 MG PO Q6H PRN for NAUSEA/VOMITING-1ST LINE Prescribed by: NE BURGOS on 06/28/16 1219 Pantoprazole Sodium 40 Mg Tablet.dr, 40 MG PO DAILY, (Reported) Sucralfate 1 Gm Tablet, 1 GM PO QID Prescribed by: TARIQ GUTIERREZ on 10/26/15 1411 Tizanidine HCl 2 Mg Tablet, 2 MG PO HS, (Reported) Tramadol HCl 50 Mg Tablet, 50 MG PO Q6H PRN for PAIN Prescribed by: EDU NAN on 02/07/19 1140 Triamcinolone Acet 15 Gm Oint, 1 GM TP BID Apply a small amount topically to the affected area on the left leg twice daily for 5-7 days. Prescribed by: NE BURGOS on 06/28/16 1217 Patient Home Medication List Home Medication List Reviewed: Yes Review of Systems Constitutional: no symptoms reported, see HPI EENTM: see HPI, no symptoms reported Respiratory: no symptoms reported, see HPI Cardiovascular: no symptoms reported, see HPI Gastrointestinal: no symptoms reported, see HPI Genitourinary: no symptoms reported, see HPI Musculoskeletal: see HPI, back pain, muscle stiffness Skin: no symptoms reported, see HPI Psychiatric/Neurological: No Symptoms Reported, See HPI All Other Systems Reviewed Negative Unless Noted: Yes Past Aisfljf-Rnmvan-Doahfl Hx Past Med/Social Hx: Reviewed Nursing Past Med/Soc Hx Patient Social History Alcohol Use: Denies Use Recreational Drug Use: No Smoking Status: Never a Smoker 2nd Hand Smoke Exposure: No Recent Foreign Travel: No Contact w/Someone Who Travel: No Recent Hopitalizations: No Physical Abuse: No Sexual Abuse: No Mistreated: No Fear: No Immunizations Up To Date Tetanus Booster (TDap): More than 5yrs Date of Influenza Vaccine: Dec 16, 2013 Seasonal Allergies Seasonal Allergies: No Past Medical History Surgeries: Yes (BACK SX RODS PLACED, neck sx) Gallbladder, Hysterectomy, Orthopedic Respiratory: Yes (sleep apnea-uses cpap) Sleep Apnea Cardiac: Yes Hypertension Neurological: No Reproductive Disorders: Yes Female Reproductive Disorders: Polycystic Ovarian Dis 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 0.0oz. [id number]; 38.3 BMI Method:Stated General Appearance: No Apparent Distress, WD/WN HEENT: PERRL/EOMI, TMs Normal, Normal ENT Inspection, Pharynx Normal Neck: Full Range of Motion, Normal Inspection, Non Tender, Supple Cardiovascular: Regular Rate, Rhythm, No Edema, No Gallop, No JVD, No Murmur, N ormal Peripheral Pulses Respiratory: Chest Non Tender, Lungs Clear, Normal Breath Sounds, No Accessory Muscle Use, No Respiratory Distress Gastrointestinal: Normal Bowel Sounds, No Organomegaly, No Pulsatile Mass, Non Tender, Soft Back: Normal Inspection, No CVA Tenderness, No Vertebral Tenderness, Decreased Range of Motion (Secondary to pain. ); No Vertebral Tenderness; Other (Walks with steady but antalgic gait, able to toe and heel walk, + SLR, Power V/V L4-S1 bilat. 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 Norm as Tested Skin: Normal Color, Warm/Dry Lymphatic: No Adenopathy Progress/Results/Core Measures Results/Orders My Orders Orders - [employer] Orphenadrine Injection (Norflex Injectio (02/07/19 11:30) Tramadol Tablet (Ultram Tablet) (02/07/19 11:30) Medications Given in ED Current Medications Medications Dose Ordered Sig/Malka Route Start Time Stop Time Status Last Admin Dose Admin Orphenadrine Citrate 60 mg ONCE ONCE IM 02/07/19 11:30 02/07/19 11:31 DC 02/07/19 11:36 60 MG Tramadol HCl 50 mg ONCE ONCE PO 02/07/19 11:30 02/07/19 11:31 DC 02/07/19 11:36 50 MG Vital Signs/I&O 02/07/19 10:56 Temp 36.7 Pulse 101 Resp 24 B/P (MAP) 157/96 (116) Pulse Ox 99 Progress Progress Note : Time: 11:00 Progress Note Patient seen and evaluated, discussed options in treating her pain temporarily until her follow-up with Dr. Samuels. Notified Katy Do APRN about patient requesting an MRI. They will attempt to schedule oupatient. 1140 discharge instructions and return precautions reviewed with the patient. Departure Impression Primary Impression: Chronic back pain Qualified Codes: M54.42 - Lumbago with sciatica, left side; M54.41 - Lumbago with sciatica, right side; G89.29 - Other chronic pain Disposition: 01 HOME, SELF-CARE Condition: Stable Departure-Patient Inst. Decision time for Depature: 11:20 Referrals: JONNATHAN MANZANARES MD (PCP/Family) Primary Care Physician Patient Instructions: Low Back Pain (DC), Lumbar Muscle Strain (DC), MANAGING YOUR CHRONIC PAIN Add. Discharge Instructions: You may take 650 mg of Tylenol every 6 hours. You may take Tylenol PM at bed time. Stop taking the Ibuprofen while taking Naprosyn. Take Naprosyn 500 mg every 12 hours with food. Take Flexeril 10 mg every 8 hours for muscle relaxant. For pain not controlled by Tylenol and Naprosyn, take Tramadol 1 tablet every 8 hours. Use [place] Dorena rub or patches to low back. Alternate ice and heat to the painful areas for [address] minutes [address] Manzanares will follow up with you on the MRI. Follow up with Dr. Samuels as soon as possible, call to see if earlier appt is available. Return to the emergency department for any new emergent concerns. All discharge instructions reviewed with patient and/or family. Voiced understanding. Scripts Tramadol HCl (Tramadol HCl) 50 Mg Tablet 50 MG PO Q6H PRN for PAIN, #15 TAB 0 Refills Prov: EDU ANN 02/07/19 Naproxen (Naprosyn) 500 Mg Tablet 500 MG PO BID, #30 TAB 0 Refills Prov: EDU ANN 02/07/19 Cyclobenzaprine HCl (Cyclobenzaprine HCl) 10 Mg Tablet 10 MG PO Q8H PRN for SPASMS, #15 TAB 0 Refills Prov: EDU ANN 02/07/19 Copy Copies To 1: JONNATHAN MANZANARES MD Copies To 2: DAMIAN SAMUELS MD, AMY ARNP Feb 07, 2019 11:17 POS
[2019-02-07] MEDS ORDERED: ORPHENADRINE 60 MG/2 ML (NORFLEX) AMP IM ONE (11:30)
[2019-02-07] MEDS ORDERED: TRAM50TA2 PO (11:40)
[2019-02-07] MEDS ORDERED: NAPR-1071 PO (11:40)
[2019-02-07] MEDS ORDERED: CYCL10TA9 PO (11:40)
[2019-02-07 11:48] VITALS: BP 123/70
--- OUTSIDE RECORDS SUMMARY | 2019-03-04 02:32 | XMS REPORT | Clinical Summary ---
Author Author [facility] Organization [facility] Address Unknown Phone Unavailable Care Team Providers Care Sheet Rock Taper Name Role Phone Ryan Patton MD PCP Unavailable Sri Sands RN Unavailable Unavailable Source Comments Some departments are not documenting in the electronic medical record. If you d o not see the information that you expected, contact Release of Information in [facility] [employer] Information Management department at [phone] for further assistan ce in locating additional records.[facility] Allergies No Known Allergies Medications End Date Status Medication Sig Dispensed Refills Start Date Active LISINOPRIL PO Take 5 mg by 0 mouth Daily. (pt hasn't taken x 2 months) Active oxycodone/acetaminophen Take 1-2 Tabs 110 0 (PERCOCET) 5/325 mg by mouth 9 tablet Every 4 Hours as needed for Pain. Active senna/docusate Take 2 Tabs 50 1 (SENOKOT-S) 8.6/50 mg by mouth 9 tablet Twice Daily. Active Problems Problem Noted Date Back pain with radiation 02/06/2009 Social History Date Tobacco Use Types Packs/Day Years Used Never Smoker Drinks/Week oz/Week Comments Alcohol Use No Sex Assigned at Date Recorded Not on file Industry Job Start Date Occupation Not on file Not on file Not on file Travel End Travel History Travel Start No recent travel history available. 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 Blood Pressure 82 02/06/2009 5:50 AM T[employer] DEPARTMENT MANAGER Pulse 36.4 C (97.5 F) 02/06/2009 5:50 AM TITLE DEPARTMENT MANAGER Temperature - - Respiratory Rate 93% 02/06/2009 5:50 AM TITLE DEPARTMENT MANAGER Oxygen Saturation - - Inhaled Oxygen Concentration 106 kg (233 lb 11 oz) 01/31/2009 6:00 AM TITLE DEPARTMENT MANAGER Weight 162.6 cm (5' 4.02") 01/31/2009 6:00 AM TITLE DEPARTMENT MANAGER Height 40.09 01/31/2009 6:00 AM TITLE DEPARTMENT MANAGER Body Mass Index Plan of Treatment Health Maintenance Due Date Last Done Comments HEPATITIS C SCREENING 1965 DTAP/TDAP VACCINES (1 - 01/12/1976 Tdap) HIV SCREENING 01/12/1980 PHYSICAL (COMPREHENSIVE) 1983 EXAM CERVICAL CANCER SCREENING 1995 BREAST CANCER SCREENING 2005 COLORECTAL CANCER 2015 SCREENING SHINGLES RECOMBINANT 2015 VACCINE (1 of 2) INFLUENZA VACCINE 10/07/2018 Results Not on filefrom Last 3 Months Insurance Type Payer Benefit Subscriber ID Effective Phone Address Plan / Dates Group PPO BCBS [facility] xxxxxxxxxxxx 2016-P [facility] CARE resent BLUE [id number] Advance Directives Patient Adapted Physical Education Specialist Explanation Type Date Recorded Advance 06/04/2016 10:49 AM Directive/DPOA
--- OUTSIDE RECORDS SUMMARY | 2019-03-04 02:33 | XMS REPORT | CCD ---
Author Author Sandee Manzanares Organization Ally Manzanares MD, [facility] Address [address] [place] [address] Phone Care Team Providers Care Manager Local Name Role Phone Ally Manzanares PP Unavailable CCM Unavailable Summary Purpose Interface Exchange Insurance Providers Payer name Policy type / Coverage type Covered democrat ID Effective Begin Date Effective End Date WPS Medicare Part B Medicare Part B [id number] Unknown [employer] Medicare Part B [id number] Unknown Family history Daughter Diagnosis Age At Onset No Family Disease Entered N/A Daughter Diagnosis Age At Onset No Family Disease Entered N/A Father Diagnosis Age At Onset No Family Disease Entered N/A Grandfather Diagnosis Age At Onset No Family Disease Entered N/A Runs in the family Diagnosis Age At Onset No Family Disease Entered N/A Mother Diagnosis Age At Onset No Family Disease Entered N/A Sister Diagnosis Age At Onset No Family Disease Entered N/A Grandmother Diagnosis Age At Onset Adenocarcinoma of the lung Unknown Grandmother Diagnosis Age At Onset Adenocarcinoma of the lung Unknown Social History Social History Element Codes Description Effective Dates Employment Unknown 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[employer], [employer]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 09/15/2013 Marital status Unknown M arried 04/14/[address]: 635506152 Never smoker 04/14/2013 Alcohol history Unknown occasionally drinks alcohol 04/14/2013 Allergies, Adverse Reactions, Alerts Substance Reaction Codes Entered Date Inactivated Date Status * NO KNOWN ENVIRONME NTAL ALLERGIES Unknown 04/14/2013 No Inactive Date Active * NO KNOWN FOOD BETHANY RGIES Unknown 04/14/2013 No Inactive Date Active * NO KNOWN DRUG BETHANY RGIES Unknown 04/14/2013 No Inactive Date Active Past Medical History Illness Codes Condition Status Onset Date Resolved Date Cervicalgia ICD-9: 723.1 ICD-10: M54.2 Active 07/15/2015 Unknown Essential (primary) hypertension ICD-9: 401.9 ICD-10: I10 Active 03/05/2016 Unknown Major depressive dis order, recurrent, moderate ICD-9: 296.32 ICD-10: F33.1 Active 07/23/2015 Unknown Anemia, unspecified ICD- 9: 285.9 ICD-10: D64.9 Active 12/02/2016 Unknown Low back pain ICD-9: 724.2 ICD-10: M54.5 Active 07/15/2015 Unknown Type 2 diabetes marissa itus with hyperglycemia ICD-9: 250.02 ICD-10: E11.65 Active 10/13/2017 Unknown Insect bite (nonveno mous), left lower leg, subsequent encounter ICD-9: V58.89 ICD-10: S80.862D Active 04/22/2018 Unknown Insect bite (nonveno mous), left lower leg, initial encounter ICD-9: 916.4 ICD-10: S80.862A Active 04/20/2018 Unknown Dysuria ICD-9: 788.1 ICD-10: R30.0 Active 06/12/2016 Unknown Other specified cond itions associated with female genital organs and menstrual cycle ICD-9: 625.9 ICD-10: N94.89 Active 11/02/2017 Unknown Generalized anxiety disorder ICD-9: 300.02 ICD-10: F41.1 Active 03/05/2016 Unknown 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 Active 05/12/2017 Unknown Vitamin D deficiency , unspecified ICD-9: 268.9 ICD-10: E55.9 Active 03/05/2016 Unknown Encounter for screen ing mammogram for malignant neoplasm of breast ICD-9: V76.12 ICD-10: Z12.31 Active 05/12/2017 Unknown Type 2 diabetes marissa itus without complications ICD-9: 250.00 ICD-10: E11.9 Active 03/05/2016 Unknown Elevated C-reactive protein (CRP) ICD-9: 790.95 ICD-10: R79.82 Active 03/06/2016 Unknown Fever, unspecified ICD- 9: 780.60 ICD-10: R50.9 Active 12/01/2016 Unknown Myalgia ICD-9: 729.1 ICD-10: M79.1 Active 07/15/2015 Unknown Pain in joints of le ft hand ICD-9: 719.44 ICD-10: M25.542 Active 12/01/2016 Unknown Pain in right hand ICD- 9: 729.5 ICD-10: M79.641 Active 12/01/2016 Unknown Impaired fasting glu cose ICD-9: 790.21 ICD-10: R73.01 Active 08/05/2016 Unknown Radiculopathy, lumba r region ICD-9: 724.4 ICD-10: M54.16 Active 07/22/2016 Unknown Elevated erythrocyte sedimentation rate ICD-9: 790.1 ICD-10: R70.0 Active 03/06/2016 Unknown Radiculopathy, cervi srinivasa region ICD-9: 723.4 ICD-10: M54.12 Active 03/06/2016 Unknown Cardiac murmur, unsp ecified ICD-9: 785.2 ICD-10: R01.1 Active 03/05/2016 Unknown Major depressive dis order, recurrent, in partial remission ICD-9: 296.35 ICD-10: F33.41 Active 12/06/2015 Unknown VACCIN FOR INFLUENZA ICD-9: V04.81 ICD-10: Z23 Active 12/06/2015 Unknown Other obesity due to excess calories ICD-9: 278.00 ICD-10: E66.09 Active 11/08/2015 Unknown Urinary tract infect ion, site not specified ICD-9: 599.0 ICD-10: N39.0 Active 08/16/2015 Unknown Pain in left hip ICD-9: 719.45 ICD-10: M25.552 Active 03/07/2015 Unknown Pain in right hip ICD-9: 719.45 ICD-10: M25.551 Active 03/07/2015 Unknown Sacroiliitis, not el sewhere classified ICD-9: 720.2 ICD-10: M46.1 Active 03/07/2015 Unknown Anxiety disorder due to known physiological condition ICD-9: 300.00 ICD-10: F06.4 Active 12/28/2014 Unknown [place] ICD-9: 782.62 ICD-10: R23.2 Active 12/28/2014 Unknown Mood disorder due to known physiological condition with depressive features ICD-9: 311 ICD-10: F06.31 Active 12/28/2014 Unknown ABNORMAL WEIGHT GAIN ICD-9: 783.1 Active 05/16/2014 Unknown Hypertension Unknown Active 04/04/2014 Unknow n Anxiety ICD-9: 300.00 Active 04/04/2014 Unknow n Depression ICD-9: 311 Active 04/04/2014 Unknow n ESSENTIAL HYPERTENSION ICD-9: 401.9 Active 04/04/2014 Unknown Blood in stool ICD-9: 578.1 Active 12/01/2013 Unknown Diarrhea ICD-9: 787.91 Active 12/01/2013 Unknow n Epigastric pain ICD-9: 789.06 Active 12/01/2013 Unknown ESOPHAGEAL REFLUX ICD-9: 530.81 Active 12/01/2013 Unknown DIABETES TYPE II ICD-9: 250.00 Active 10/10/2013 Unknown Insomnia ICD-9: 780.52 Active 10/10/2013 Unknow n Laboratory exam orde red as part of routine general medical examination ICD-9: V72.62 Active 10/06/2013 Unknown Vitamin D deficiency ICD-9: 268.9 Active 10/06/2013 Unknown JOINT PAIN-UNSPEC ICD-9: 719.40 Active 09/15/2013 Unknown Nasal septal ulcer ICD- 9: 478.19 Active 09/15/2013 Unknown Pleuritic chest pain ICD-9: 786.52 Active 09/15/2013 Unknown Swelling of extremity ICD-9: 729.81 Active 09/15/2013 Unknown Well woman exam with routine gynecological exam ICD-9: V72.31 Active 09/15/2013 Unknown ANEMIA ICD-9: 285.9 Active 08/16/2013 Unknow n Urinary tract infection ICD-9: 599.0 Active 08/16/2013 Unknown DM w/o complication type II, uncontrolled ICD-9: 250.02 Active 06/06/2013 Unknown Diabetes Unknown Active 04/26/2013 Unknow n degenerative disc di sease Unknown Active 4 Unknown Depression Unknown Active 04/14/2013 Unknow n diverticulosis Unknown Active 04/14/2013 Unknow n sleep apnea Unknown Active 04/14/2013 Unknow n Elevated alkaline ph osphatase level ICD-9: 790.5 Active 08/2013 Unknown Elevated blood pressure ICD-9: 796.2 Active 04/14/2013 Unknown Elevated glucose ICD-9: 790.29 Active 04/14/2013 Unknown Problems Condition Codes Effectiv e Dates Condition Status Cervicalgia ICD-9: 723.1 ICD-10: M54.2 07/15/2015 Active Essential (primary) hypertension ICD-9: 401.9 ICD-10: I10 03/05/2016 Active Major depressive dis order, recurrent, moderate ICD-9: 296.32 ICD-10: F33.1 07/23/2015 Active Anemia, unspecified ICD- 9: 285.9 ICD-10: D64.9 12/02/2016 Active Low back pain ICD-9: 724.2 ICD-10: M54.5 07/15/2015 Active Type 2 diabetes marissa itus with hyperglycemia ICD-9: 250.02 ICD-10: E11.65 10/13/2017 Active Insect bite (nonveno mous), left lower leg, subsequent encounter ICD-9: V58.89 ICD-10: S80.862D 04/22/2018 Active Insect bite (nonveno mous), left lower leg, initial encounter ICD-9: 916.4 ICD-10: S80.862A 04/20/2018 Active Dysuria ICD-9: 788.1 ICD-10: R30.0 06/12/2016 Active Other specified cond itions associated with female genital organs and menstrual cycle ICD-9: 625.9 ICD-10: N94.89 11/02/2017 Active Generalized anxiety disorder ICD-9: 300.02 ICD-10: F41.1 03/05/2016 Active 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 05/12/2017 Active Vitamin D deficiency , unspecified ICD-9: 268.9 ICD-10: E55.9 03/05/2016 Active Encounter for screen ing mammogram for malignant neoplasm of breast ICD-9: V76.12 ICD-10: Z12.31 05/12/2017 Active Type 2 diabetes marissa itus without complications ICD-9: 250.00 ICD-10: E11.9 03/05/2016 Active Elevated C-reactive protein (CRP) ICD-9: 790.95 ICD-10: R79.82 03/06/2016 Active Fever, unspecified ICD- 9: 780.60 ICD-10: R50.9 12/01/2016 Active Myalgia ICD-9: 729.1 ICD-10: M79.1 07/15/2015 Active Pain in joints of le ft hand ICD-9: 719.44 ICD-10: M25.542 12/01/2016 Active Pain in right hand ICD- 9: 729.5 ICD-10: M79.641 12/01/2016 Active Impaired fasting glu cose ICD-9: 790.21 ICD-10: R73.01 08/05/2016 Active Radiculopathy, lumba r region ICD-9: 724.4 ICD-10: M54.16 07/22/2016 Active Elevated erythrocyte sedimentation rate ICD-9: 790.1 ICD-10: R70.0 03/06/2016 Active Radiculopathy, cervi srinivasa region ICD-9: 723.4 ICD-10: M54.12 03/06/2016 Active Cardiac murmur, unsp ecified ICD-9: 785.2 ICD-10: R01.1 03/05/2016 Active Major depressive dis order, recurrent, in partial remission ICD-9: 296.35 ICD-10: F33.41 12/06/2015 Active VACCIN FOR INFLUENZA ICD-9: V04.81 ICD-10: Z23 12/06/2015 Active Other obesity due to excess calories ICD-9: 278.00 ICD-10: E66.09 11/08/2015 Active Urinary tract infect ion, site not specified ICD-9: 599.0 ICD-10: N39.0 08/16/2015 Active Pain in left hip ICD-9: 719.45 ICD-10: M25.552 03/07/2015 Active Pain in right hip ICD-9: 719.45 ICD-10: M25.551 03/07/2015 Active Sacroiliitis, not el sewhere classified ICD-9: 720.2 ICD-10: M46.1 03/07/2015 Active Anxiety disorder due to known physiological condition ICD-9: 300.00 ICD-10: F06.4 12/28/2014 Active [place] ICD-9: 782.62 ICD-10: R23.2 12/28/2014 Active Mood disorder due to known physiological condition with depressive features ICD-9: 311 ICD-10: F06.31 12/28/2014 Active ABNORMAL WEIGHT GAIN ICD-9: 783.1 05/16/2014 Active Hypertension Unknown 04/04/2014 Active Anxiety ICD-9: 300.00 04/04/2014 Active Depression ICD-9: 311 04/04/2014 Active ESSENTIAL HYPERTENSION ICD-9: 401.9 04/04/2014 Active Blood in stool ICD-9: 578.1 12/01/2013 Active Diarrhea ICD-9: 787.91 12/01/2013 Active Epigastric pain ICD-9: 789.06 12/01/2013 Active ESOPHAGEAL REFLUX ICD-9: 530.81 12/01/2013 Active DIABETES TYPE II ICD-9: 250.00 10/10/2013 Active Insomnia ICD-9: 780.52 10/10/2013 Active Laboratory exam orde red as part of routine general medical examination ICD-9: V72.62 10/06/2013 Active Vitamin D deficiency ICD-9: 268.9 10/06/2013 Active JOINT PAIN-UNSPEC ICD-9: 719.40 09/15/2013 Active Nasal septal ulcer ICD- 9: 478.19 09/15/2013 Active Pleuritic chest pain ICD-9: 786.52 09/15/2013 Active Swelling of extremity ICD-9: 729.81 09/15/2013 Active Well woman exam with routine gynecological exam ICD-9: V72.31 09/15/2013 Active ANEMIA ICD-9: 285.9 08/16/2013 Active Urinary tract infection ICD-9: 599.0 08/16/2013 Active DM w/o complication type II, uncontrolled ICD-9: 250.02 06/06/2013 Active Diabetes Unknown 04/26/2013 Active degenerative disc di sease Unknown 04/14/2013 Activ e Depression Unknown 04/14/2013 Active diverticulosis Unknown 04/14/2013 Active sleep apnea Unknown 04/14/2013 Active Elevated alkaline ph osphatase level ICD-9: 790.5 04/14/2013 Active Elevated blood pressure ICD-9: 796.2 04/14/2013 Active Elevated glucose ICD-9: 790.29 04/14/2013 Active Medications Medication Codes Instruc tions Start Date Stop Date Sta tus Fill Instructions Cymbalta 60 mg capsu le,delayed release RxNorm: 593121 1 Capsule(s) PO daily 11/15/2018 03/14/2019 Ac tive pantoprazole 40 mg t ablet,delayed release RxNorm: 194446 1 Tablet(s) PO daily 11/15/2018 03/14/2019 Ac tive lisinopril 10 mg tablet RxNorm: 635291 1 Tablet(s) PO daily 11/15/2018 08/11/2019 Active metoprolol succinate ER 50 mg tablet,extended release 24 hr RxNorm: 142812 1 Tablet(s) PO daily 05/12/2018 11/14/2018 Inactive lisinopril 20 mg-hyd rochlorothiazide 12.5 mg tablet RxNorm: 736241 TAKE 1 TABLET BY MOUTH ONCE DAILY 05/03/2018 11/14/2018 Inactive Bactrim DS 800 mg-16 0 mg tablet RxNorm: 124746 1 Tablet(s) PO BID 04/20/2018 04/26/2018 Inactive mupirocin 2 % topica l ointment RxNorm: 043039 1 Application TOP BID 04/20/2018 04/29/2018 Inactive Diflucan 150 mg tablet RxNorm: 196795 1 Tablet(s) PO daily 11/02/2017 11/08/2017 Inactive Wellbutrin XL 300 mg 24 hr tablet, extended release RxNorm: 514085 TAKE 1 TABLET BY MOUTH ONCE DAILY 09/07/2017 10/13/2018 Inactive metoprolol succinate ER 50 mg tablet,extended release 24 hr RxNorm: 530478 1 Tablet(s) PO daily 07/20/2017 01/15/2018 Inactive amitriptyline 25 mg tablet RxNorm: 524144 Tablet(s) 2 TAB(S) PO HS 07/09/2017 10/13/2018 Inactive Bystolic 5 mg tablet RxNorm: 820075 1 Tablet(s) PO daily 06/09/2017 07/08/2017 Inactive metformin 500 mg tablet RxNorm: 303605 1/2 Tablet(s) PO QPM 05/12/2017 05/11/2017 Inactive Vitamin D2 50,000 un it capsule RxNorm: 515510 1 Capsule(s) PO QW 05/12/2017 10/13/2018 Inactive metformin 500 mg tablet RxNorm: 967677 1/2 Tablet(s) PO QPM 05/12/2017 10/13/2018 Inactive lisinopril 20 mg-hyd rochlorothiazide 12.5 mg tablet RxNorm: 915092 1 TABLET(S) PO DAILY 04/23/2017 10/19/2017 Inactive Wellbutrin XL 300 mg 24 hr tablet, extended release RxNorm: 468458 1 Tablet(s) PO daily 1 TABLET(S) PO DAILY 12/01/2016 05/29/2017 Inactive Wellbutrin XL 150 mg 24 hr tablet, extended release RxNorm: 788522 1 TABLET(S) PO DAILY 10/07/2016 11/30/2016 Inactive amitriptyline 25 mg tablet RxNorm: 256690 2 TAB(S) PO HS,INSTR: FOR PAIN AND SLEEP 09/24/2016 07/08/2017 In active amitriptyline 25 mg tablet RxNorm: 904420 2 Tablet(s) PO QHS 09/23/2016 09/23/2016 Inactive meloxicam 15 mg tablet RxNorm: 432219 1 TABLET(S) PO DAILY 09/08/2016 10/13/[address] on hold until pt needs it: she is going to take (2) 7.5mg until gone cetirizine 10 mg tablet RxNorm: 9096232 1 Tablet(s) PO daily 07/22/2016 No Stop Date Active lisinopril 20 mg-hyd rochlorothiazide 12.5 mg tablet RxNorm: 789045 1 TABLET(S) PO DAILY 06/20/2016 12/16/2016 Inactive Wellbutrin XL 150 mg 24 hr tablet, extended release RxNorm: 350360 1 TABLET(S) PO DAILY 05/12/2016 08/09/2016 Inactive Victoza 3-Jean 0.6 mg /0.1 mL (18 mg/3 mL) subcutaneous pen injector RxNorm: 298830 0.6 Milligram(s) SQ daily 03/21/2016 07/21/2016 Inactive NovoFine Plus 32 gau ge x 1/6" needle RxNorm: 1 Miscellaneous daily 03/21/2016 07/21/2016 Inactive NovoFine Plus 32 gau ge x 1/6" needle RxNorm: 1 Miscellaneous daily 03/21/2016 03/20/2016 Inactive Victoza 3-Jean 0.6 mg /0.1 mL (18 mg/3 mL) subcutaneous pen injector RxNorm: 736312 0.6 Milligram(s) SQ daily 03/21/2016 03/20/2016 Inactive Vitamin D2 50,000 un it capsule RxNorm: 402124 1 Capsule(s) PO QW 03/20/2016 06/17/2016 Inactive meloxicam 15 mg tablet RxNorm: 756346 1 Tablet(s) PO daily 03/20/2016 07/17/[address] on hold until pt needs it: she is going to take (2) 7.5mg until gone lisinopril 20 mg-hyd rochlorothiazide 12.5 mg tablet RxNorm: 802628 1 TABLET(S) PO DAILY 02/19/2016 05/18/2016 Inactive Wellbutrin XL 150 mg 24 hr tablet, extended release RxNorm: 369561 1 Tablet(s) PO daily 11/09/2015 03/07/2016 Inactive gabapentin 800 mg ta blet RxNorm: 446853 1 Tablet(s) PO TID 11/09/2015 06/08/2017 Inactive Lexapro 10 mg tablet RxNorm: 882408 1 TABLET(S) PO QPM 11/05/2015 11/08/2015 Inactive lisinopril 20 mg-hyd rochlorothiazide 12.5 mg tablet RxNorm: 641509 1 TABLET(S) PO DAILY 10/18/2015 01/15/2016 Inactive Cipro 500 mg tablet RxNorm: 026653 1 Tablet(s) PO BID 08/17/2015 08/23/2015 Inactive Lexapro 10 mg tablet RxNorm: 688795 1 Tablet(s) PO QPM 07/24/2015 10/21/2015 Inactive Vitamin D2 50,000 un it capsule RxNorm: 682440 1 Capsule(s) PO QW 07/24/2015 10/21/2015 Inactive gabapentin 300 mg ca psule RxNorm: 042225 2 Capsule(s) PO TID 07/16/2015 11/08/2015 Inactive lisinopril 20 mg-hyd rochlorothiazide 12.5 mg tablet RxNorm: 490116 1 TABLET(S) PO DAILY 04/09/2015 07/07/2015 Inactive naproxen 250 mg tablet RxNorm: 318968 1-2 Tablet(s) PO BID as needed for pain 03/08/2015 10/13/2018 In active Fetzima 40 mg capsul e,extended release RxNorm: 1512428 1 Capsule(s) PO irwin y 12/22/2014 12/21/2014 In active Fetzima 40 mg capsul e,extended release RxNorm: 1928536 1 Capsule(s) PO irwin y 12/22/2014 06/11/2015 In active Xanax 0.5 mg tablet RxNorm: 121908 1 Tablet(s) TAKE 1 TABLET BY MOUTH TWICE DAILY NEEDED FOR ANXIETY 11/17/2014 10/13/2018 Inactive lisinopril 20 mg-hyd rochlorothiazide 12.5 mg tablet RxNorm: 908613 1 Tablet(s) PO daily 11/17/2014 03/16/2015 Inactive Fetzima 20 mg capsul e,extended release RxNorm: 8902802 1 Capsule(s) PO irwin y 11/17/2014 12/22/2014 In active Xanax 0.5 mg tablet RxNorm: 562509 1 Tablet(s) TAKE 1 TABLET BY MOUTH TWICE DAILY NEEDED FOR ANXIETY 10/27/2014 11/16/2014 Inactive Xanax 0.5 mg tablet RxNorm: 614312 TAKE 1 TABLET BY MOUTH TWICE DAILY NE EDED FOR ANXIETY 08/25/2014 10/23/2014 Inactive Brintellix 10 mg tablet RxNorm: 3481948 1 Tablet(s) PO daily 07/04/2014 07/03/2014 Inactive Brintellix 10 mg tablet RxNorm: 6590659 1 Tablet(s) PO daily 07/04/2014 11/16/2014 Inactive Brintellix 10 mg tablet RxNorm: 4500094 1 Tablet(s) PO daily 06/09/2014 07/03/2014 Inactive Contrave 8 mg-90 mg tablet,extended release RxNorm: 7933904 2 Tablet(s) PO BID 06/09/2014 09/06/2014 In active 1 tab q am x 1 week, then 1 tab BID x 1 week, then 2 q am and 1 q pm x 1 week then 2 tabs BID thereafter Contrave 8 mg-90 mg tablet,extended release RxNorm: 7814423 2 Tablet(s) PO BID 06/09/2014 06/08/2014 In active 1 tab q am x 1 week, then 1 tab BID x 1 week, then 2 q am and 1 q pm x 1 week then 2 tabs BID thereafter metformin 500 mg tablet RxNorm: 778918 1/2 Tablet(s) PO BID 05/18/2014 09/14/2014 Inactive Brintellix 10 mg tablet RxNorm: 5885623 2 Tablet(s) PO daily 05/16/2014 06/08/2014 Inactive Xanax 0.5 mg tablet RxNorm: 124289 1 Tablet(s) PO BID PRN 04/06/2014 08/25/2014 Inactive Wellbutrin XL 150 mg 24 hr tablet, extended release RxNorm: 063242 1 Tablet(s) PO daily 04/04/2014 05/15/2014 Inactive [SAVINGS FOR UNINSURED PATIENTS -- BIN:0 21686, PCN: [id number], Group: [id number], ID# [id number], Process claim through [employer], for questions: . THIS IS NOT INSURANCE.] pantoprazole 40 mg t ablet,delayed release RxNorm: 007286 1 Tablet(s) PO daily 12/01/2013 11/14/2018 In active Vitamin D3 2,000 uni t tablet RxNorm: 537549 1 Tablet(s) PO daily 10/10/2013 No Stop Date Active Vitamin D2 50,000 un it capsule RxNorm: 460180 1 Capsule(s) PO QW 10/10/2013 11/16/2014 Inactive vitamin d 50,000 units weekly x 12 weeks then 5000 units daily thereafter escitalopram 20 mg t ablet RxNorm: 192618 1 Tablet(s) PO daily 10/10/2013 04/04/2014 Inactive trazodone 100 mg tablet RxNorm: 447035 1 TABLET(S) PO QHS 09/19/2013 01/16/2014 Inactive trazodone 100 mg tablet RxNorm: 134285 1 Tablet(s) PO QHS 08/16/2013 09/14/2013 Inactive metformin 500 mg tablet RxNorm: 554755 1 Tablet(s) PO BID 08/16/2013 04/03/2014 Inactive Diflucan 150 mg tablet RxNorm: 010256 1 Tablet(s) PO daily 08/16/2013 08/22/2013 Inactive metformin 500 mg tablet RxNorm: 559292 1/2 Tablet(s) PO BID 1/2 tab in the even ing x 1 week then 1/2 tab twice daily 04/26/2013 08/15/2013 Inactive Vitamin D2 50,000 un it capsule RxNorm: 430358 1 Capsule(s) PO QW 04/21/2013 10/09/2013 Inactive vitamin d 50,000 units weekly x 12 weeks then 5000 units daily thereafter Lexapro 10 mg tablet RxNorm: 047720 1 Tablet(s) PO daily 04/14/2013 10/09/2013 Inactive Slow Fe oral RxNorm: 45534 oral No Start Date Active Flintstones Plus Iro n 15 mg iron chewable tablet RxNorm: 1 Tablet(s) PO daily No Start Date Active vitamin B complex ca psule RxNorm: 1 Capsule(s) PO daily No Start Date Active lisinopril 20 mg-hyd rochlorothiazide 12.5 mg tablet RxNorm: 942897 1 Tablet(s) PO daily No Start Date 11/16/2014 Inactive gabapentin 300 mg ca psule RxNorm: 275383 1 Capsule(s) PO TID No Start Date 07/15/2015 Inactive cetirizine 10 mg tablet RxNorm: 5722641 1 Tablet(s) PO daily No Start Date 03/05/2016 Inactive tizanidine 2 mg tablet RxNorm: 337997 1 Tablet(s) PO TID No Start Date 10/13/2018 Inactive Vitamin D2 50,000 un it capsule RxNorm: 006801 1 Capsule(s) PO QW No Start Date 04/20/2013 Inactive pantoprazole 40 mg t ablet,delayed release RxNorm: 531090 1 Tablet(s) PO daily No Start Date 10/09/2013 Inactive amitriptyline 10 mg tablet RxNorm: 096908 1 Tablet(s) PO QHS No Start Date 09/22/2016 Inactive meloxicam 7.5 mg tablet RxNorm: 361475 1 Tablet(s) PO daily No Start Date 03/19/2016 Inactive ibuprofen 200 mg tablet RxNorm: 003324 3 Tablet(s) PO TID No Start Date 11/30/2013 Inactive diclofenac 75 mg-mis oprostol 200 mcg tablet,immediate,delayed release RxNorm: 0986968 1 Tablet(s) PO BID No Start Date 10/13/2018 Inactive methocarbamol 500 mg tablet RxNorm: 101794 1 Tablet(s) PO TID No Start Date 10/13/2018 Inactive Advair Diskus 250 mc g-50 mcg/dose powder for inhalation RxNorm: 4309571 2 INH daily No Start Date 07/23/2015 Inactive Medication Administered No Medication Administered data Immunizations Vaccine Codes Date Status Influenza CVX: 141 12/06 completed Influenza CVX: 141 12/07 completed Influenza CVX: 141 12/27 completed Assessments Condition Codes Effectiv e Dates Cervicalgia ICD-10: M54.2 ICD-9: 723.1 11/15/2018 Major depressive disorder, recurrent, moderate ICD-10: F33.1 ICD-9: 296.32 11/15/2018 Essential (primary) hypertension ICD -10: I10 ICD-9: 401.9 11/15/2018 Anemia, unspecified ICD-10: D64.9 ICD-9: 285.9 10/14/2018 Low back pain ICD-10: M54.5 ICD-9: 724.2 10/14/2018 Type 2 diabetes mellitus with hyperglycemia ICD-10: E11.65 ICD-9: 250.02 10/14/2018 Insect bite (nonvenomous), left lower le g, subsequent encounter ICD-10: S80.862D ICD-9: V58.89 04/22/2018 Insect bite (nonvenomous), left lower leg, initial enc ounter ICD-10: S80.862A ICD-9: 916.4 04/20/2018 Dysuria ICD-10: R30.0 ICD-9: 788.1 11/02/2017 Other specified conditions associated wi th female genital organs and menstrual cycle ICD-10: N94.89 ICD-9: 625.9 11/02/2017 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) ICD- 10: D50.0 ICD-9: 280.0 10/13/2017 Vitamin D deficiency, unspecified IC D-10: E55.9 ICD-9: 268.9 10/13/2017 Encounter for screening mammogram for ma lignant neoplasm of breast ICD-10: Z12.31 ICD-9: V76.12 05/12/2017 Type 2 diabetes mellitus without complications ICD-10: E11.9 ICD-9: 250.00 05/12/2017 Myalgia ICD-10: M79.1 ICD-9: 729.1 12/01/2016 Generalized anxiety disorder ICD-10: F41.1 ICD-9: 300.02 12/01/2016 Pain in right hand ICD-10: M79.641 ICD-9: 729.5 12/01/2016 Fever, unspecified ICD-10: R50.9 ICD-9: 780.60 12/01/2016 Pain in joints of left hand ICD-10: M25.542 ICD-9: 719.44 12/01/2016 Elevated C-reactive protein (CRP) IC D-10: R79.82 ICD-9: 790.95 12/01/2016 Impaired fasting glucose ICD-10: R73 .01 ICD-9: 790.21 08/05/2016 Radiculopathy, lumbar region ICD-10: M54.16 ICD-9: 724.4 07/22/2016 Radiculopathy, cervical region ICD-1 0: M54.12 ICD-9: 723.4 03/07/2016 Elevated erythrocyte sedimentation rate ICD-10: R70.0 ICD-9: 790.1 03/07/2016 Cardiac murmur, unspecified ICD-10: R01.1 ICD-9: 785.2 03/06/2016 Major depressive disorder, recurrent, in partial remis sae ICD-10: F33.41 ICD-9: 296.35 12/07/2015 VACCIN FOR INFLUENZA ICD-10: Z23 ICD-9: V04.81 12/07/2015 Other obesity due to excess calories ICD-10: E66.09 ICD-9: 278.00 11/09/2015 Urinary tract infection, site not specified ICD-10: N39.0 ICD-9: 599.0 08/17/2015 Pain in left hip ICD-10: M25.552 ICD-9: 719.45 03/08/2015 Sacroiliitis, not elsewhere classified ICD-10: M46.1 ICD-9: 720.2 03/08/2015 Pain in right hip ICD-10: M25.551 ICD-9: 719.45 03/08/2015 [place] ICD-10: R23.2 ICD-9: 782.62 12/29/2014 Anxiety disorder due to known physiological condition ICD-10: F06.4 ICD-9: 300.00 12/29/2014 Mood disorder due to known physiological condition with depressive features ICD-10: F06.31 ICD-9: 311 12/29/2014 Anxiety ICD-9: 300.00 Depression ICD-9: 311 ESSENTIAL HYPERTENSION ICD-9: 401.9 11/17/2014 ABNORMAL WEIGHT GAIN ICD-9: 783.1 05/16/2014 Vitamin D deficiency ICD-9: 268.9 05/16/2014 DIABETES TYPE II ICD-9: 250.00 05/16/2014 Blood in stool ICD-9: 578.1 12/01/2013 Epigastric pain ICD-9: 789.06 12/01/2013 ESOPHAGEAL REFLUX ICD-9: 530.81 12/01/2013 Diarrhea ICD-9: 787.91 0 12/01/2013 Insomnia ICD-9: 780.52 0 10/10/2013 Laboratory exam ordered as part of [facility] general medical examination ICD-9: V72.62 10/06/2013 Swelling of extremity ICD-9: 729.81 09/15/2013 JOINT PAIN-UNSPEC ICD-9: 719.40 09/15/2013 Pleuritic chest pain ICD-9: 786.52 09/15/2013 Well woman exam with routine gynecological exam ICD-9: V72.31 09/15/2013 Nasal septal ulcer ICD-9: 478.19 09/15/2013 ANEMIA ICD-9: 285.9 08/07 DM W/O COMPLICATION TYPE II, UNCONTROLLED SNOMED: [id number] ICD-9: 250.02 08/16/2013 Urinary tract infection ICD-9: 599.0 08/16/2013 Elevated alkaline phosphatase level ICD-9: 790.5 04/14/2013 Elevated glucose ICD-9: 790.29 04/14/2013 Elevated blood pressure ICD-9: 796.2 04/14/2013 Reason For Visit Reason For Visit Effective Dates Notes neck pain 11/15/2018 neck pain 10/14/2018 cellulitis 04/22/2018 cellulitis 04/20/2018 rash 11/02/2017 hypertension 10/13/2017 hypertension 07/20/2017 hypertension 06/09/2017 blood pressure followup 05/12/2017 joint complaint 12/01/2016 pre-op/surgery consult 08/05/2016 lower leg pain 07/22/2016 depression 03/06/2016 Weight follow up 12/07/2015 Weight follow up 11/09/2015 dysuria 08/17/2015 depression 07/24/2015 pain 07/16/2015 neck pain 06/12/2015 hip pain 03/08/2015 menopausal symptoms 12/29/2014 anxiety 11/17/2014 ~generic 05/16/2014 ~generic 04/04/2014 abdominal pain 12/01/2013 abnormal test results 10/10/2013 well woman exam (40-65 years) 09/15/2013 diabetes mellitus 08/16/2013 diabetes mellitus 06/06/2013 diabetes mellitus 04/26/2013 disturbances of emotion 04/14/2013 Results Observation Observation Code Item Item Code Result Date Ferritin Ord22 FERRITIN 14.8 ng/mL 10/15/2018 Tibc Ord40 Iron 36 ug/dl 10/15/2018 Tibc Ord40 UIBC 402 ug/dL 10/15/2018 Tibc Ord40 TIBC 438 ug/dL 10/15/2018 Tibc Ord40 Fe-%Sat 8.2 % 10/15/2018 B12 Iib984 B12 387.00 pg/ml 10/15/2018 Comp Metabolic Hur332 NA 139 mEq/L 10/14/2018 Comp Metabolic Yio570 K 4.1 mEq/L 10/14/2018 Comp Metabolic Cvx790 CL 103 mEq/L 10/14/2018 Comp Metabolic Ndz352 CO2 27.0 mEq/L 10/14/2018 Comp Metabolic Ifn347 AN ION GAP 13 10/14/2018 Comp Metabolic Hre755 GL UCOSE 131 mg/dL 10/14/2018 Comp Metabolic Rlj965 Cr eat 0.7 mg/dL 10/14/2018 Comp Metabolic Zra817 eG FR 98 ml/min/1.73m2 10/14 Comp Metabolic Ndu363 BUN 12 mg/dL 10/14/2018 Comp Metabolic Dhf529 B/ C Ratio 17.9 Ratio 10/14/2018 Comp Metabolic Ris461 CA LCIUM 9.0 mg/dL 10/14/2018 Comp Metabolic Apn707 AL K PHOS 127 U/L 10/14/2018 Comp Metabolic Cyi096 T(SGOT) 19 U/L 10/14/2018 Comp Metabolic Oct032 AL T(SGPT) 17 U/L 10/14/2018 Comp Metabolic Fmo696 BI LI T 0.3 mg/dL 10/14/2018 Comp Metabolic Ezr666 AL BUMIN 4.1 g/dL 10/14/2018 Comp Metabolic Gax452 TP RO 6.8 g/dL 10/14/2018 Comp Metabolic Php889 GL OB 2.7 g/dL 10/14/2018 Comp Metabolic Osp549 A/ G Ratio 1.5 Ratio 10/14/2018 Comp Metabolic Cwm730 Os mo 279 mOsmo 10/14/2018 Cbc With Differential Ord2 WBC 7.22 K/ul 10/14/2018 Cbc With Differential Ord2 RBC 4.48 M/ul 10/14/2018 Cbc With Differential Ord2 HGB 11.0 g/dl 10/14/2018 Cbc With Differential Ord2 HCT 35.1 % 10/14/2018 Cbc With Differential Ord2 Neut% 61.8 % 10/14/2018 Cbc With Differential Ord2 MCV 78.3 fl 10/14/2018 Cbc With Differential Ord2 Lymph% 23.5 % 10/14/2018 Cbc With Differential Ord2 MCH 24.6 pg 10/14/2018 Cbc With Differential Ord2 [place]% 12.3 % 10/14/2018 Cbc With Differential Ord2 MCHC 31.3 pg 10/14/2018 Cbc With Differential Ord2 Eos% 1.7 % 10/14/2018 Cbc With Differential Ord2 PLT 322 K/ul 10/14/2018 Cbc With Differential Ord2 Baso% 0.7 % 10/14/2018 Cbc With Differential Ord2 RDW 15.5 % 10/14/2018 Cbc With Differential Ord2 Neut ABS# 4.46 K/ul 10/14/2018 Cbc With Differential Ord2 Lymph ABS# 1.70 K/ul 10/14/2018 Cbc With Differential Ord2 [place] ABS# 0.9 K/ul 10/14/2018 Cbc With Differential Ord2 Eos ABS# 0.1 K/ul 10/14/2018 Cbc With Differential Ord2 Baso ABS# 0.1 K/ul 10/14/2018 %Hba1C Myd156 % HbA1c 99372-8 6.4 % 10/14/2018 %Hba1C Ocy915 Gluc Ave 137 mg/dL 10/14/2018 Tsh Ord6 TSH (3rd IS) 3.86 uIU/mL 10/14/2018 Lipid Ord30 CHOL 161 mg/dL 10/14/2018 Lipid Ord30 HDL 44.0 mg/dl 10/14/2018 Lipid Ord30 TRIG 158 mg/dL 10/14/2018 Lipid Ord30 LDL 85 mg/dL 10/14/2018 Lipid Ord30 C/HDL 3.7 Ratio 10/14/2018 Cbc With Differential Ord2 WBC 6.53 K/ul 10/13/2017 Cbc With Differential Ord2 RBC 4.81 M/ul 10/13/2017 Cbc With Differential Ord2 HGB 11.7 g/dl 10/13/2017 Cbc With Differential Ord2 HCT 37.7 % 10/13/2017 Cbc With Differential Ord2 Neut% 62.2 % 10/13/2017 Cbc With Differential Ord2 MCV 78.4 fl 10/13/2017 Cbc With Differential Ord2 Lymph% 26.2 % 10/13/2017 Cbc With Differential Ord2 MCH 24.3 pg 10/13/2017 Cbc With Differential Ord2 [place]% 10.1 % 10/13/2017 Cbc With Differential Ord2 MCHC 31.0 pg 10/13/2017 Cbc With Differential Ord2 Eos% 0.9 % 10/13/2017 Cbc With Differential Ord2 PLT 304 K/ul 10/13/2017 Cbc With Differential Ord2 Baso% 0.6 % 10/13/2017 Cbc With Differential Ord2 RDW 16.7 % 10/13/2017 Cbc With Differential Ord2 Neut ABS# 4.06 K/ul 10/13/2017 Cbc With Differential Ord2 Lymph ABS# 1.71 K/ul 10/13/2017 Cbc With Differential Ord2 [place] ABS# 0.7 K/ul 10/13/2017 Cbc With Differential Ord2 Eos ABS# 0.1 K/ul 10/13/2017 Cbc With Differential Ord2 Baso ABS# 0.0 K/ul 10/13/2017 %Hba1C Kxk194 % HbA1c 45877-4 6.3 % 10/13/2017 %Hba1C Nfc343 Gluc Ave 134 mg/dL 10/13/2017 Comp Metabolic Mme793 NA 144 mEq/L 10/13/2017 Comp Metabolic Tox488 K 4.2 mEq/L 10/13/2017 Comp Metabolic Zhw897 CL 110 mEq/L 10/13/2017 Comp Metabolic Dic658 CO2 25.0 mEq/L 10/13/2017 Comp Metabolic Brq362 AN ION GAP 13 10/13/2017 Comp Metabolic Wim819 GL UCOSE 99 mg/dL 10/13/2017 Comp Metabolic Nqd268 Cr eat 0.6 mg/dL 10/13/2017 Comp Metabolic Ooo619 eG FR 116 ml/min/1.73m2 09/2017 Comp Metabolic Mpd642 BUN 11 mg/dL 10/13/2017 Comp Metabolic Hbz246 B/ C Ratio 19.0 Ratio 10/13/2017 Comp Metabolic Tbx707 CA LCIUM 9.1 mg/dL 10/13/2017 Comp Metabolic Oad282 AL K PHOS 134 U/L 10/13/2017 Comp Metabolic Isf605 T(SGOT) 18 U/L 10/13/2017 Comp Metabolic Mdd064 AL T(SGPT) 17 U/L 10/13/2017 Comp Metabolic Ujs461 BI LI T 0.4 mg/dL 10/13/2017 Comp Metabolic Wst380 AL BUMIN 4.0 g/dL 10/13/2017 Comp Metabolic Gip821 TP RO 6.6 g/dL 10/13/2017 Comp Metabolic Kys592 GL OB 2.6 g/dL 10/13/2017 Comp Metabolic Etb251 A/ G Ratio 1.5 Ratio 10/13/2017 Comp Metabolic Ypt585 Os mo 286 mOsmo 10/13/2017 Vitamin D 25 Oh Nhk0102 VITAMIN D, 25 HYDROXY 55.13 ng/mL 10/13/2017 I Fecal Occult Blood Yub2565 IFOB Negative 05/13/2017 B12 Cyv080 B12 427.00 pg/ml 05/12/2017 Tibc Ord40 Iron 35 ug/dl 05/12/2017 Tibc Ord40 UIBC 412 ug/dL 05/12/2017 Tibc Ord40 TIBC 447 ug/dL 05/12/2017 Tibc Ord40 Fe-%Sat 7.8 % 05/12/2017 Ferritin Ord22 FERRITIN 7.2 ng/mL 05/12/2017 Comp Metabolic Gag859 NA 142 mEq/L 05/12/2017 Comp Metabolic Dap668 K 4.0 mEq/L 05/12/2017 Comp Metabolic Dzr603 CL 106 mEq/L 05/12/2017 Comp Metabolic Pcw330 CO2 26.0 mEq/L 05/12/2017 Comp Metabolic Zjy747 AN ION GAP 14 05/12/2017 Comp Metabolic Avy625 GL UCOSE 137 mg/dL 05/12/2017 Comp Metabolic Xbj006 Cr eat 0.6 mg/dL 05/12/2017 Comp Metabolic Qph536 eG FR 116 ml/min/1.73m2 08/2017 Comp Metabolic Hxg013 BUN 9 mg/dL 05/12/2017 Comp Metabolic Zdq199 B/ C Ratio 15.5 Ratio 05/12/2017 Comp Metabolic Kji635 CA LCIUM 8.8 mg/dL 05/12/2017 Comp Metabolic Tay972 AL K PHOS 171 U/L 05/12/2017 Comp Metabolic Pzp342 T(SGOT) 18 U/L 05/12/2017 Comp Metabolic Qdu592 AL T(SGPT) 17 U/L 05/12/2017 Comp Metabolic Efi875 BI LI T 0.2 mg/dL 05/12/2017 Comp Metabolic Uma445 AL BUMIN 3.9 g/dL 05/12/2017 Comp Metabolic Gcw949 TP RO 6.5 g/dL 05/12/2017 Comp Metabolic Dzv668 GL OB 2.6 g/dL 05/12/2017 Comp Metabolic Tjg642 A/ G Ratio 1.5 Ratio 05/12/2017 Comp Metabolic Bkb021 Os mo 284 mOsmo 05/12/2017 Iron Ord72 Iron 33 ug/dl 05/12/2017 Vitamin D 25 Oh Yvp5086 VITAMIN D, 25 HYDROXY 31.02 ng/mL 05/12/2017 Cbc With Differential Ord2 WBC 6.77 K/ul 05/12/2017 Cbc With Differential Ord2 RBC 4.36 M/ul 05/12/2017 Cbc With Differential Ord2 HGB 9.6 g/dl 05/12/2017 Cbc With Differential Ord2 HCT 32.2 % 05/12/2017 Cbc With Differential Ord2 Neut% 66.1 % 05/12/2017 Cbc With Differential Ord2 MCV 73.9 fl 05/12/2017 Cbc With Differential Ord2 Lymph% 22.7 % 05/12/2017 Cbc With Differential Ord2 MCH 22.0 pg 05/12/2017 Cbc With Differential Ord2 [place]% 8.1 % 05/12/2017 Cbc With Differential Ord2 MCHC 29.8 pg 05/12/2017 Cbc With Differential Ord2 Eos% 2.5 % 05/12/2017 Cbc With Differential Ord2 PLT 374 K/ul 05/12/2017 Cbc With Differential Ord2 Baso% 0.6 % 05/12/2017 Cbc With Differential Ord2 RDW 16.6 % 05/12/2017 Cbc With Differential Ord2 Neut ABS# 4.47 K/ul 05/12/2017 Cbc With Differential Ord2 Lymph ABS# 1.54 K/ul 05/12/2017 Cbc With Differential Ord2 [place] ABS# 0.6 K/ul 05/12/2017 Cbc With Differential Ord2 Eos ABS# 0.2 K/ul 05/12/2017 Cbc With Differential Ord2 Baso ABS# 0.0 K/ul 05/12/2017 %Hba1C Kar795 % HbA1c 35135-2 6.6 % 05/12/2017 %Hba1C Aro921 Gluc Ave 143 mg/dL 05/12/2017 Tsh Ord6 TSH (3rd IS) 3.18 uIU/mL 05/12/2017 Lymes Disease Total Antibodies With Western Blot Refle x [id number] B. BURGDORFERI, IGG/IGM 0.048 12/08/2016 Lymes Disease Total Antibodies With Western Blot Refle x [id number] 12/08/2016 [place] Reflex Profile [id number] ALENA ([place]) SCREEN NONE DETECTED 017 Ehrlichia Chaffeensis Antibody Igm [id number] EHRLICHIA CHAFFEENSIS IGM < 1:16 12/05/2016 [place] Spotted Fever Igg/Igm 98339 3 GUME MT SPOTTED FEVER IGM EIA . 12/05/2016 [place] Spotted Fever Igg/Igm 59671 3 RMSF, IGM 0.43 index 12/05/2016 [place] Spotted Fever Igg/Igm 75918 3 GUME MT SPOTTED FEVER IGG EIA FLEX . 12/05/2016 [place] Spotted Fever Igg/Igm 49947 3 RMSF, IGG SCREEN-FLEX Negative 12/05/2016 Ehrlichia Chaffeensis Antibody Igg [id number] EHRLICHIA CHAFFEENSIS IGG <1:64 12/05/2016 Tibc Ord40 Iron 37 ug/dl 12/02/2016 Tibc Ord40 UIBC 372 ug/dL 12/02/2016 Tibc Ord40 TIBC 409 ug/dL 12/02/2016 Tibc Ord40 Fe-%Sat 9.0 % 12/02/2016 Ferritin Ord22 FERRITIN 13.9 ng/mL 12/02/2016 B12 Eyo080 B12 344.00 pg/ml 12/02/2016 %Hba1C Wlu692 % HbA1c 73268-0 6.1 % 12/01/2016 %Hba1C Bbc863 Gluc Ave 128 mg/dL 12/01/2016 Cbc With Differential Ord2 WBC 6.91 K/ul 12/01/2016 Cbc With Differential Ord2 RBC 4.27 M/ul 12/01/2016 Cbc With Differential Ord2 HGB 11.2 g/dl 12/01/2016 Cbc With Differential Ord2 HCT 34.9 % 12/01/2016 Cbc With Differential Ord2 Neut% 59.4 % 12/01/2016 Cbc With Differential Ord2 MCV 81.7 fl 12/01/2016 Cbc With Differential Ord2 Lymph% 25.3 % 12/01/2016 Cbc With Differential Ord2 MCH 26.2 pg 12/01/2016 Cbc With Differential Ord2 [place]% 8.8 % 12/01/2016 Cbc With Differential Ord2 MCHC 32.1 pg 12/01/2016 Cbc With Differential Ord2 Eos% 5.6 % 12/01/2016 Cbc With Differential Ord2 PLT 328 K/ul 12/01/2016 Cbc With Differential Ord2 Baso% 0.9 % 12/01/2016 Cbc With Differential Ord2 RDW 14.0 % 12/01/2016 Cbc With Differential Ord2 Neut ABS# 4.10 K/ul 12/01/2016 Cbc With Differential Ord2 Lymph ABS# 1.75 K/ul 12/01/2016 Cbc With Differential Ord2 [place] ABS# 0.6 K/ul 12/01/2016 Cbc With Differential Ord2 Eos ABS# 0.4 K/ul 12/01/2016 Cbc With Differential Ord2 Baso ABS# 0.1 K/ul 12/01/2016 Tsh Ord6 hTSH II 1.80 uIU/mL 12/01/2016 C-Reactive Protein Qnt Crqnt CRP 1.5 mg/dl 12/01/2016 Sed Rate Ord21 ESR 14 mm/hr 12/01/2016 Ra Factor Bda958 RA FACT OR <10 IU/ml 12/01/2016 Vitamin D 25 Oh Cpg2371 VITAMIN D, 25 HYDROXY 30.98 ng/mL 12/01/2016 Comp Metabolic Miq884 NA 140 mEq/L 12/01/2016 Comp Metabolic Emy691 K 3.9 mEq/L 12/01/2016 Comp Metabolic Kor774 CL 106 mEq/L 12/01/2016 Comp Metabolic Hha557 CO2 26.0 mEq/L 12/01/2016 Comp Metabolic Hhy466 AN ION GAP 12 12/01/2016 Comp Metabolic Hcg246 GL UCOSE 147 mg/dL 12/01/2016 Comp Metabolic Qsq933 Cr eat 0.6 mg/dL 12/01/2016 Comp Metabolic Jjl601 eG FR 114 ml/min/1.73m2 11/08 Comp Metabolic Eyk751 BUN 11 mg/dL 12/01/2016 Comp Metabolic Rqp959 B/ C Ratio 18.6 Ratio 12/01/2016 Comp Metabolic Znh862 CA LCIUM 8.8 mg/dL 12/01/2016 Comp Metabolic Kqg575 AL K PHOS 138 U/L 12/01/2016 Comp Metabolic Qrt247 T(SGOT) 34 U/L 12/01/2016 Comp Metabolic Feb917 AL T(SGPT) 26 U/L 12/01/2016 Comp Metabolic Bgp160 BI LI T 0.3 mg/dL 12/01/2016 Comp Metabolic Fae606 AL BUMIN 3.8 g/dL 12/01/2016 Comp Metabolic Lee607 TP RO 6.2 g/dL 12/01/2016 Comp Metabolic Xce658 GL OB 2.4 g/dL 12/01/2016 Comp Metabolic Unn535 A/ G Ratio 1.6 Ratio 12/01/2016 Comp Metabolic Ddl999 Os mo 281 mOsmo 12/01/2016 %Hba1C Btx952 % HbA1c 45272-7 6.3 % 08/05/2016 %Hba1C Pqe679 Gluc Ave 134 mg/dL 08/05/2016 [place] [id number] ALENA ([place]) S CREEN NONE DETECTED 017 Vitamin D 25 Oh Gpr5624 VITAMIN D, 25 HYDROXY 32.26 ng/mL 03/07/2016 Ra Factor Erk014 RA FACT OR <10 IU/ml 03/07/2016 C-Reactive Protein Qnt Crqnt CRP 2.0 mg/dl 03/06/2016 Sed Rate Ord21 ESR 32 mm/hr 03/06/2016 %Hba1C Per739 % HbA1c 31319-9 6.3 % 03/06/2016 %Hba1C Yno392 Gluc Ave 134 mg/dL 03/06/2016 Comp Metabolic Lco452 NA 138 mEq/L 03/06/2016 Comp Metabolic Jjd923 K 4.3 mEq/L 03/06/2016 Comp Metabolic Jib474 CL 103 mEq/L 03/06/2016 Comp Metabolic Vzq077 CO2 23.0 mEq/L 03/06/2016 Comp Metabolic Zua028 AN ION GAP 16 03/06/2016 Comp Metabolic Qwt384 GL UCOSE 148 mg/dL 03/06/2016 Comp Metabolic Tdj119 Cr eat 0.6 mg/dL 03/06/2016 Comp Metabolic Orr967 eG FR 104 ml/min/1.73m2 02/07 Comp Metabolic Xke274 BUN 13 mg/dL 03/06/2016 Comp Metabolic Dbc890 B/ C Ratio 20.3 Ratio 03/06/2016 Comp Metabolic Qht171 CA LCIUM 9.7 mg/dL 03/06/2016 Comp Metabolic Tfi364 AL K PHOS 146 U/L 03/06/2016 Comp Metabolic Aum720 T(SGOT) 25 U/L 03/06/2016 Comp Metabolic Hof008 AL T(SGPT) 25 U/L 03/06/2016 Comp Metabolic Xfo433 BI LI T 0.3 mg/dL 03/06/2016 Comp Metabolic Ogj983 AL BUMIN 4.1 g/dL 03/06/2016 Comp Metabolic Ndr870 TP RO 6.9 g/dL 03/06/2016 Comp Metabolic Hke774 GL OB 2.8 g/dL 03/06/2016 Comp Metabolic Klw134 A/ G Ratio 1.5 Ratio 03/06/2016 Comp Metabolic Tjg244 Os mo 279 mOsmo 03/06/2016 Cbc With Differential Ord2 WBC 5.73 K/ul 03/06/2016 Cbc With Differential Ord2 RBC 4.76 M/ul 03/06/2016 Cbc With Differential Ord2 HGB 12.9 g/dl 03/06/2016 Cbc With Differential Ord2 HCT 39.5 % 03/06/2016 Cbc With Differential Ord2 Neut% 63.2 % 03/06/2016 Cbc With Differential Ord2 MCV 83.0 fl 03/06/2016 Cbc With Differential Ord2 Lymph% 23.6 % 03/06/2016 Cbc With Differential Ord2 MCH 27.1 pg 03/06/2016 Cbc With Differential Ord2 [place]% 9.2 % 03/06/2016 Cbc With Differential Ord2 MCHC 32.7 pg 03/06/2016 Cbc With Differential Ord2 Eos% 3.1 % 03/06/2016 Cbc With Differential Ord2 PLT 288 K/ul 03/06/2016 Cbc With Differential Ord2 Baso% 0.9 % 03/06/2016 Cbc With Differential Ord2 RDW 14.1 % 03/06/2016 Cbc With Differential Ord2 Neut ABS# 3.62 K/ul 03/06/2016 Cbc With Differential Ord2 Lymph ABS# 1.35 K/ul 03/06/2016 Cbc With Differential Ord2 [place] ABS# 0.5 K/ul 03/06/2016 Cbc With Differential Ord2 Eos ABS# 0.2 K/ul 03/06/2016 Cbc With Differential Ord2 Baso ABS# 0.1 K/ul 03/06/2016 Tsh Ord6 hTSH II 3.61 uIU/mL 03/06/2016 Culture Urine [id number] URI NE CULTURE SEE NOTES 08/20/2015 Culture Urine [id number] Con tinued Results 08/20/2015 Urine Culture Ucult Comp lete Growth of aerobe sent to ref lab 08/18/2015 Vitamin D 25 Oh Jiq9915 VITAMIN D, 25 HYDROXY 24.39 ng/mL 07/18/2015 Comp Metabolic Dqv150 NA 136 mEq/L 07/17/2015 Comp Metabolic Cpr589 K 4.0 mEq/L 07/17/2015 Comp Metabolic Kjk050 CL 100 mEq/L 07/17/2015 Comp Metabolic Ufb916 CO2 27.0 mEq/L 07/17/2015 Comp Metabolic Jkq468 AN ION GAP 13 07/17/2015 Comp Metabolic Ksc158 GL UCOSE 121 mg/dL 07/17/2015 Comp Metabolic Oqs234 Cr eat 0.7 mg/dL 07/17/2015 Comp Metabolic Gqu497 eG FR 96 ml/min/1.73m2 07/16 Comp Metabolic Qim839 BUN 10 mg/dL 07/17/2015 Comp Metabolic Iih756 B/ C Ratio 14.5 Ratio 07/17/2015 Comp Metabolic Alx553 CA LCIUM 8.9 mg/dL 07/17/2015 Comp Metabolic Ssb412 AL K PHOS 146 U/L 07/17/2015 Comp Metabolic Kta135 T(SGOT) 20 U/L 07/17/2015 Comp Metabolic Vin016 AL T(SGPT) 22 U/L 07/17/2015 Comp Metabolic Ngi933 BI LI T 0.4 mg/dL 07/17/2015 Comp Metabolic Xpt852 AL BUMIN 4.0 g/dL 07/17/2015 Comp Metabolic Rhu149 TP RO 6.6 g/dL 07/17/2015 Comp Metabolic Gug862 GL OB 2.6 g/dL 07/17/2015 Comp Metabolic Mtu217 A/ G Ratio 1.6 Ratio 07/17/2015 Comp Metabolic Bpl020 Os mo 272 mOsmo 07/17/2015 Sed Rate Ord21 ESR 11 mm/hr 07/17/2015 Cbc With Differential Ord2 WBC 7.38 K/ul 07/17/2015 Cbc With Differential Ord2 RBC 4.82 M/ul 07/17/2015 Cbc With Differential Ord2 HGB 12.6 g/dl 07/17/2015 Cbc With Differential Ord2 HCT 40.3 % 07/17/2015 Cbc With Differential Ord2 Neut% 69.3 % 07/17/2015 Cbc With Differential Ord2 MCV 83.6 fl 07/17/2015 Cbc With Differential Ord2 Lymph% 16.9 % 07/17/2015 Cbc With Differential Ord2 MCH 26.1 pg 07/17/2015 Cbc With Differential Ord2 [place]% 12.6 % 07/17/2015 Cbc With Differential Ord2 MCHC 31.3 pg 07/17/2015 Cbc With Differential Ord2 Eos% 0.7 % 07/17/2015 Cbc With Differential Ord2 PLT 308 K/ul 07/17/2015 Cbc With Differential Ord2 Baso% 0.5 % 07/17/2015 Cbc With Differential Ord2 RDW 16.5 % 07/17/2015 Cbc With Differential Ord2 Neut ABS# 5.11 K/ul 07/17/2015 Cbc With Differential Ord2 Lymph ABS# 1.25 K/ul 07/17/2015 Cbc With Differential Ord2 [place] ABS# 0.9 K/ul 07/17/2015 Cbc With Differential Ord2 Eos ABS# 0.1 K/ul 07/17/2015 Cbc With Differential Ord2 Baso ABS# 0.0 K/ul 07/17/2015 Cbc With Differential Ord2 New Analyzer Notice Please note new ref ranges s tarting 03-21-2015 due to implemntation of new five part differential hematolgy analyzer. 07/17/2015 Tsh Ord6 hTSH II 2.49 uIU/mL 07/17/2015 C-Reactive Protein Qnt Crqnt CRP 2.9 mg/dl 07/17/2015 GFR CALC 5347948 GFR AA >60 ML/MIN 10/06/2013 GFR CALC 8030791 GFR NON -AA >60 ML/MIN 10/06/2013 CHEM 14 5137136 AST 34 U/L 10/06/2013 CHEM 14 20270911 ALT 30 IU/L 10/06/2013 CHEM 14 20270911 BUN 11 MG/DL 10/06/2013 CHEM 14 3263684 ALBUMIN 4.4 GM/DL 10/06/2013 CHEM 14 20270911 CHLORIDE 107 MMOL/L 10/06/2013 CHEM 14 20270911 BILI TOT 0.4 MG/DL 10/06/2013 CHEM 14 9339137 ALK PHOS 133 U/L 10/06/2013 CHEM 14 5154007 SODIUM 140 MMOL/L 10/06/2013 CHEM 14 8526960 CREATINI NE 0.67 MG/DL 10/06/2013 CHEM 14 3073205 CALCIUM 9.3 MG/DL 10/06/2013 CHEM 14 5270672 POTASSIUM 4.0 MMOL/L 10/06/2013 CHEM 14 9112086 PROT TOT 7.1 GM/DL 10/06/2013 CHEM 14 7903074 GLUCOSE 108 MG/DL 10/06/2013 CHEM 14 5140217 BICARB 25 MMOL/L 10/06/2013 CHEM 14 9566609 ANION GAP 8 MEQ/L 10/06/2013 VIT D TOTL 8621910 VIT D TOTL 37 NG/ML 10/06/2013 GC/CHL PRB 6134549 CHLM PROBE NEG 09/21/2013 GC/CHL PRB 9950805 GC NM OBE NEG 09/21/2013 DNA AB 1463811 DNA AB 36 IU/ML 09/17/2013 RA FACTOR 6549610 RA FAC TOR <20.0 IU/ML 09/16/2013 SM MUSC AB 6442358 SM MU SC AB <1:20 09/16/2013 CARDIO G/M 8328983 CARDI O IGG 1.7 GPLU 09/16/2013 CARDIO G/M 8959002 CARDI O IGM 4.8 MPLU 09/16/2013 ALENA SCR [id number] ALENA SCR <1:80 09/16/2013 CRP [id number] CRP 1.1 MG/DL 09/15/2013 ESR 6187631 ESR 22 MM/HR 09/15/2013 CBC 4406199 WBC 5.5 10e9/L 04/26/2013 CBC 2032061 RBC 4.89 10e12/L 04/26/2013 CBC 6241055 HGB 12.8 g/dL 04/26/2013 CBC 2102347 HCT DET 39.5 % 04/26/2013 CBC 2207805 MCV 80.8 fL 04/26/2013 CBC 3470951 MCH 26.2 pg 04/26/2013 CBC 0468456 MCHC 32.4 g/dL 04/26/2013 CBC 1601961 PLT 299 10e9/L 04/26/2013 CBC 7546722 MPV 10.9 fL 04/26/2013 CBC 1697447 WAN % 59.0 % 04/26/2013 CBC 0361534 LY % 29.6 % 04/26/2013 CBC 3291504 MON % 9.1 % 04/26/2013 CBC 9841478 EOS % 1.8 % 04/26/2013 CBC 5398391 BASO % 0.5 % 04/26/2013 CBC 0525212 RDW 13.9 % 04/26/2013 CBC 3442026 ABS WAN 3.25 10e9/L 04/26/2013 CBC 2813213 ABS LYMPH 1.63 10e9/L 04/26/2013 CBC 3696156 ABS MONO 0.50 10e9/L 04/26/2013 CBC 8855152 ABS EOS 0.10 10e9/L 04/26/2013 CBC 2952786 ABS BASO 0.03 10e9/L 04/26/2013 CBC 9150788 RDW-SD 39.9 fL 04/26/2013 URINALYSIS NONAUTO W/O SCOPE 63547 Specific [place] 1.020 DateTime(Free Text in Aprima) URINALYSIS NONAUTO W/O SCOPE 92593 PH 6.0 DateTime(Free Rik t in Apr) URINALYSIS NONAUTO W/O SCOPE 71851 GLUCOSE neg DateTime(Free Rik t in Aprima) URINALYSIS NONAUTO W/O SCOPE 36020 Protein neg DateTime(Free Rik t in Aprima) URINALYSIS NONAUTO W/O SCOPE 57759 Blood neg DateTime(Free Rik t in Aprima) URINALYSIS NONAUTO W/O SCOPE 56178 Bilirubin neg DateTime(Free Rik t in Aprima) URINALYSIS NONAUTO W/O SCOPE 49734 Ketones neg DateTime(Free Rik t in Aprima) URINALYSIS NONAUTO W/O SCOPE 83725 Urobilinogen neg DateTime(Free Text in Aprima) URINALYSIS NONAUTO W/O SCOPE 48558 Nitrite neg DateTime(Free Rik t in Aprima) URINALYSIS NONAUTO W/O SCOPE 62972 Leukocytes 1+ DateTime(Free Text in Aprima) Review of Systems System Result Effective Dates Constitutional No recent illness 11/15/2018 Constitutional No anorexia 11/15/2018 Constitutional No night sweats 11/15/2018 Constitutional No chills 11/15/2018 Constitutional No diaphoresis 11/15/2018 Constitutional fatigue 0 11/15/2018 Constitutional No fever 11/15/2018 Constitutional insomnia 11/15/2018 Constitutional No malaise 11/15/2018 Constitutional No weight loss 11/15/2018 Constitutional No weight gain 11/15/2018 Constitutional obesity 0 11/15/2018 Eyes No eye discharge Eyes No eye erythema 11/2018 Ears/Nose/Throat/Neck dizziness 11/15/2018 Ears/Nose/Throat/Neck headache 11/15/2018 Cardiovascular fatigue 0 11/15/2018 Cardiovascular hypertension 11/15/2018 Respiratory No cough 11/2018 Gastrointestinal No abdominal pain 11/15/2018 Gastrointestinal No constipation 11/15/2018 Gastrointestinal No diarrhea 11/15/2018 Genitourinary/Nephrology No dysuria 11/15/2018 Musculoskeletal back pain 11/15/2018 Dermatologic No rash 11/2018 Neurologic No alteration of consciousness 11/15/2018 Neurologic pain, back Psychiatric anxiety 09/0 11/2018 Psychiatric depression 0 11/15/2018 Endocrine No dry or coarse skin 11/15/2018 Musculoskeletal back pain 10/14/2018 Constitutional No recent illness 10/14/2018 Constitutional No anorexia 10/14/2018 Constitutional No night sweats 10/14/2018 Constitutional No chills 10/14/2018 Constitutional No diaphoresis 10/14/2018 Constitutional fatigue 0 10/14/2018 Constitutional No fever 10/14/2018 Constitutional insomnia 10/14/2018 Constitutional No malaise 10/14/2018 Constitutional No weight loss 10/14/2018 Constitutional No weight gain 10/14/2018 Constitutional obesity 0 10/14/2018 Eyes No eye discharge Eyes No eye erythema 10/2018 Ears/Nose/Throat/Neck headache 10/14/2018 Ears/Nose/Throat/Neck dizziness 10/14/2018 Cardiovascular hypertension 10/14/2018 Cardiovascular fatigue 0 10/14/2018 Respiratory No cough 10/2018 Gastrointestinal No abdominal pain 10/14/2018 Gastrointestinal No constipation 10/14/2018 Gastrointestinal No diarrhea 10/14/2018 Genitourinary/Nephrology No dysuria 10/14/2018 Dermatologic No rash 10/2018 Neurologic No alteration of consciousness 10/14/2018 Neurologic pain, back Psychiatric anxiety 08/0 10/2018 Psychiatric depression 0 10/14/2018 Endocrine No dry or coarse skin 10/14/2018 Constitutional No recent illness 04/20/2018 Constitutional No anorexia 04/20/2018 Constitutional No night sweats 04/20/2018 Constitutional No chills 04/20/2018 Constitutional No diaphoresis 04/20/2018 Constitutional fatigue 0 04/20/2018 Constitutional No fever 04/20/2018 Constitutional No malaise 04/20/2018 Constitutional No insomnia 04/20/2018 Constitutional No weight loss 04/20/2018 Constitutional No weight gain 04/20/2018 Constitutional No recent illness 11/02/2017 Constitutional No anorexia 11/02/2017 Constitutional No night sweats 11/02/2017 Constitutional No chills 11/02/2017 Constitutional No diaphoresis 11/02/2017 Constitutional fatigue 0 11/02/2017 Constitutional No fever 11/02/2017 Constitutional No insomnia 11/02/2017 Constitutional No malaise 11/02/2017 Constitutional No weight loss 11/02/2017 Constitutional No weight gain 11/02/2017 Genitourinary/Nephrology No dysuria 11/02/2017 Genitourinary/Nephrology No vaginal discharge 11/02/2017 Constitutional No recent illness 10/13/2017 Constitutional No anorexia 10/13/2017 Constitutional No night sweats 10/13/2017 Constitutional No chills 10/13/2017 Constitutional No diaphoresis 10/13/2017 Constitutional fatigue 0 10/13/2017 Constitutional No fever 10/13/2017 Constitutional insomnia 10/13/2017 Constitutional No malaise 10/13/2017 Eyes No eye discharge Eyes No eye erythema 09/2017 Ears/Nose/Throat/Neck No dizziness 10/13/2017 Ears/Nose/Throat/Neck No headache 10/13/2017 Cardiovascular No chest pain/pressure 10/13/2017 Cardiovascular No dyspnea 10/13/2017 Respiratory No cough 09/2017 Gastrointestinal No abdominal pain 10/13/2017 Gastrointestinal No constipation 10/13/2017 Gastrointestinal No diarrhea 10/13/2017 Genitourinary/Nephrology No dysuria 10/13/2017 Musculoskeletal back pain 10/13/2017 Musculoskeletal neck pain 10/13/2017 Dermatologic No rash 09/2017 Neurologic No alteration of consciousness 10/13/2017 Psychiatric anxiety 08/0 09/2017 Psychiatric depression 0 10/13/2017 Endocrine No dry or coarse skin 10/13/2017 Constitutional No recent illness 07/20/2017 Constitutional No anorexia 07/20/2017 Constitutional No night sweats 07/20/2017 Constitutional No chills 07/20/2017 Constitutional No diaphoresis 07/20/2017 Constitutional fatigue 0 07/20/2017 Constitutional No fever 07/20/2017 Constitutional insomnia 07/20/2017 Constitutional No malaise 07/20/2017 Eyes No eye discharge Eyes No eye erythema Ears/Nose/Throat/Neck No dizziness 07/20/2017 Ears/Nose/Throat/Neck No headache 07/20/2017 Cardiovascular No chest pain/pressure 07/20/2017 Cardiovascular No dyspnea 07/20/2017 Respiratory No cough Gastrointestinal No abdominal pain 07/20/2017 Gastrointestinal No constipation 07/20/2017 Gastrointestinal No diarrhea 07/20/2017 Genitourinary/Nephrology No dysuria 07/20/2017 Musculoskeletal back pain 07/20/2017 Musculoskeletal neck pain 07/20/2017 Dermatologic No rash Neurologic No alteration of consciousness 07/20/2017 Psychiatric anxiety 07/07 Psychiatric depression 0 07/20/2017 Endocrine No dry or coarse skin 07/20/2017 Constitutional No recent illness 06/09/2017 Constitutional No anorexia 06/09/2017 Constitutional No night sweats 06/09/2017 Constitutional No chills 06/09/2017 Constitutional No diaphoresis 06/09/2017 Constitutional fatigue 0 06/09/2017 Constitutional No fever 06/09/2017 Constitutional insomnia 06/09/2017 Constitutional No malaise 06/09/2017 Eyes No eye discharge Eyes No eye erythema 05/2017 Ears/Nose/Throat/Neck No dizziness 06/09/2017 Ears/Nose/Throat/Neck No headache 06/09/2017 Cardiovascular No chest pain/pressure 06/09/2017 Cardiovascular No dyspnea 06/09/2017 Respiratory No cough 05/2017 Gastrointestinal No abdominal pain 06/09/2017 Gastrointestinal No constipation 06/09/2017 Gastrointestinal No diarrhea 06/09/2017 Genitourinary/Nephrology No dysuria 06/09/2017 Musculoskeletal back pain 06/09/2017 Musculoskeletal neck pain 06/09/2017 Dermatologic No rash 05/2017 Neurologic No alteration of consciousness 06/09/2017 Psychiatric anxiety 04/0 05/2017 Psychiatric depression 0 06/09/2017 Endocrine No dry or coarse skin 06/09/2017 Psychiatric depression 0 05/12/2017 Psychiatric anxiety 03/0 08/2017 Constitutional No recent illness 05/12/2017 Constitutional No anorexia 05/12/2017 Constitutional No night sweats 05/12/2017 Constitutional No chills 05/12/2017 Constitutional No diaphoresis 05/12/2017 Constitutional fatigue 0 05/12/2017 Constitutional No fever 05/12/2017 Constitutional insomnia 05/12/2017 Constitutional No malaise 05/12/2017 Constitutional weight loss 05/12/2017 Eyes No eye discharge Eyes No eye erythema 08/2017 Ears/Nose/Throat/Neck No dizziness 05/12/2017 Ears/Nose/Throat/Neck No headache 05/12/2017 Cardiovascular No chest pain/pressure 05/12/2017 Cardiovascular No dyspnea 05/12/2017 Respiratory No cough 08/2017 Gastrointestinal No abdominal pain 05/12/2017 Gastrointestinal No constipation 05/12/2017 Gastrointestinal No diarrhea 05/12/2017 Genitourinary/Nephrology No dysuria 05/12/2017 Musculoskeletal back pain 05/12/2017 Musculoskeletal neck pain 05/12/2017 Dermatologic No rash 08/2017 Neurologic No alteration of consciousness 05/12/2017 Endocrine No dry or coarse skin 05/12/2017 Constitutional No recent illness 12/01/2016 Constitutional No anorexia 12/01/2016 Constitutional No night sweats 12/01/2016 Constitutional No chills 12/01/2016 Constitutional No diaphoresis 12/01/2016 Constitutional fatigue 0 12/01/2016 Constitutional fever Constitutional No malaise 12/01/2016 Constitutional No weight loss 12/01/2016 Constitutional No weight gain 12/01/2016 Eyes No eye discharge Eyes No eye erythema Ears/Nose/Throat/Neck headache 12/01/2016 Cardiovascular No chest pain/pressure 12/01/2016 Cardiovascular No dyspnea 12/01/2016 Cardiovascular No edema 12/01/2016 Respiratory No cough Gastrointestinal No abdominal pain 12/01/2016 Gastrointestinal No constipation 12/01/2016 Gastrointestinal No diarrhea 12/01/2016 Genitourinary/Nephrology No dysuria 12/01/2016 Musculoskeletal swelling 12/01/2016 Musculoskeletal arthralgia(s) 12/01/2016 Musculoskeletal joint complaint 12/01/2016 Dermatologic No rash Neurologic No alteration of consciousness 12/01/2016 Psychiatric anxiety 11/08 Psychiatric depression 0 12/01/2016 Endocrine No dry or coarse skin 12/01/2016 Dermatologic No sores Musculoskeletal neck pain 12/01/2016 Musculoskeletal back pain 12/01/2016 Constitutional No recent illness 08/05/2016 Constitutional No anorexia 08/05/2016 Constitutional No night sweats 08/05/2016 Constitutional No chills 08/05/2016 Constitutional No diaphoresis 08/05/2016 Constitutional fatigue 0 08/05/2016 Constitutional No fever 08/05/2016 Constitutional insomnia 08/05/2016 Constitutional No malaise 08/05/2016 Constitutional No weight loss 08/05/2016 Constitutional No weight gain 08/05/2016 Eyes No eye discharge Eyes No eye erythema Cardiovascular No chest pain/pressure 08/05/2016 Cardiovascular No dyspnea 08/05/2016 Cardiovascular No edema 08/05/2016 Respiratory No cough Gastrointestinal No abdominal pain 08/05/2016 Gastrointestinal No constipation 08/05/2016 Gastrointestinal No diarrhea 08/05/2016 Gastrointestinal gastroesophageal reflux 08/05/2016 Genitourinary/Nephrology No dysuria 08/05/2016 Musculoskeletal swelling 08/05/2016 Musculoskeletal arthralgia(s) 08/05/2016 Musculoskeletal joint complaint 08/05/2016 Dermatologic No rash Neurologic No alteration of consciousness 08/05/2016 Psychiatric anxiety 07/09 Psychiatric depression 0 08/05/2016 Endocrine No dry or coarse skin 08/05/2016 Ears/Nose/Throat/Neck No dizziness 08/05/2016 Constitutional No anorexia 07/22/2016 Constitutional No night sweats 07/22/2016 Constitutional No chills 07/22/2016 Constitutional No diaphoresis 07/22/2016 Constitutional fatigue 0 07/22/2016 Constitutional No fever 07/22/2016 Constitutional insomnia 07/22/2016 Constitutional No malaise 07/22/2016 Constitutional No weight loss 07/22/2016 Constitutional No weight gain 07/22/2016 Eyes No eye discharge Eyes No eye erythema Ears/Nose/Throat/Neck headache 07/22/2016 Cardiovascular No chest pain/pressure 07/22/2016 Cardiovascular No dyspnea 07/22/2016 Cardiovascular No edema 07/22/2016 Respiratory No cough Gastrointestinal No abdominal pain 07/22/2016 Gastrointestinal No constipation 07/22/2016 Gastrointestinal No diarrhea 07/22/2016 Gastrointestinal gastroesophageal reflux 07/22/2016 Genitourinary/Nephrology No dysuria 07/22/2016 Musculoskeletal swelling 07/22/2016 Musculoskeletal arthralgia(s) 07/22/2016 Musculoskeletal joint complaint 07/22/2016 Dermatologic No rash Neurologic No alteration of consciousness 07/22/2016 Psychiatric anxiety 07/07 Psychiatric depression 0 07/22/2016 Endocrine No dry or coarse skin 07/22/2016 Constitutional No recent illness 07/22/2016 Constitutional recent illness 03/06/2016 Constitutional No anorexia 03/06/2016 Constitutional No night sweats 03/06/2016 Constitutional No chills 03/06/2016 Constitutional No diaphoresis 03/06/2016 Constitutional fatigue 1 05/07/2015 Constitutional No fever 03/06/2016 Constitutional insomnia 03/06/2016 Constitutional No malaise 03/06/2016 Constitutional No weight loss 03/06/2016 Constitutional No weight gain 03/06/2016 Eyes No eye discharge Eyes No eye erythema Ears/Nose/Throat/Neck dizziness 03/06/2016 Cardiovascular No chest pain/pressure 03/06/2016 Respiratory No cough Gastrointestinal No abdominal pain 03/06/2016 Gastrointestinal No constipation 03/06/2016 Gastrointestinal No diarrhea 03/06/2016 Gastrointestinal gastroesophageal reflux 03/06/2016 Genitourinary/Nephrology No dysuria 03/06/2016 Dermatologic No rash Neurologic No alteration of consciousness 03/06/2016 Endocrine No dry or coarse skin 03/06/2016 Musculoskeletal swelling 03/06/2016 Musculoskeletal arthralgia(s) 03/06/2016 Musculoskeletal joint complaint 03/06/2016 Psychiatric anxiety 02/07 Psychiatric depression 1 05/07/2015 Ears/Nose/Throat/Neck headache 03/06/2016 Cardiovascular No dyspnea 03/06/2016 Cardiovascular No edema 03/06/2016 Constitutional No recent illness 12/07/2015 Constitutional No anorexia 12/07/2015 Constitutional No night sweats 12/07/2015 Constitutional No chills 12/07/2015 Constitutional No diaphoresis 12/07/2015 Constitutional fatigue 0 12/07/2015 Constitutional No fever 12/07/2015 Constitutional No insomnia 12/07/2015 Constitutional No malaise 12/07/2015 Constitutional No weight loss 12/07/2015 Constitutional No weight gain 12/07/2015 Eyes No eye discharge Eyes No eye erythema Ears/Nose/Throat/Neck No dizziness 12/07/2015 Cardiovascular No chest pain/pressure 12/07/2015 Respiratory No cough Gastrointestinal No abdominal pain 12/07/2015 Gastrointestinal No constipation 12/07/2015 Gastrointestinal No diarrhea 12/07/2015 Gastrointestinal gastroesophageal reflux 12/07/2015 Genitourinary/Nephrology No dysuria 12/07/2015 Musculoskeletal joint complaint 12/07/2015 Dermatologic No rash Neurologic No alteration of consciousness 12/07/2015 Psychiatric anxiety 11/09 Psychiatric depression 0 12/07/2015 Endocrine No dry or coarse skin 12/07/2015 Constitutional No recent illness 11/09/2015 Constitutional No anorexia 11/09/2015 Constitutional No night sweats 11/09/2015 Constitutional No chills 11/09/2015 Constitutional No diaphoresis 11/09/2015 Constitutional fatigue 0 11/09/2015 Constitutional No fever 11/09/2015 Constitutional No insomnia 11/09/2015 Constitutional No malaise 11/09/2015 Constitutional No weight loss 11/09/2015 Constitutional No weight gain 11/09/2015 Eyes No eye discharge Eyes No eye erythema 04/2015 Cardiovascular No chest pain/pressure 11/09/2015 Musculoskeletal joint complaint 11/09/2015 Neurologic No alteration of consciousness 11/09/2015 Psychiatric anxiety 09/0 04/2015 Psychiatric depression 0 11/09/2015 Ears/Nose/Throat/Neck No dizziness 11/09/2015 Gastrointestinal No abdominal pain 11/09/2015 Gastrointestinal No constipation 11/09/2015 Gastrointestinal No diarrhea 11/09/2015 Gastrointestinal gastroesophageal reflux 11/09/2015 Respiratory No cough 04/2015 Genitourinary/Nephrology No dysuria 11/09/2015 Dermatologic No rash 04/2015 Endocrine No dry or coarse skin 11/09/2015 Genitourinary/Nephrology dysuria 08/17/2015 Genitourinary/Nephrology urinary urgency 08/17/2015 Genitourinary/Nephrology urinary frequency 08/17/2015 Gastrointestinal No abdominal pain 08/17/2015 Gastrointestinal No constipation 08/17/2015 Gastrointestinal No diarrhea 08/17/2015 Constitutional No recent illness 08/17/2015 Constitutional No anorexia 08/17/2015 Constitutional No night sweats 08/17/2015 Constitutional No chills 08/17/2015 Constitutional No diaphoresis 08/17/2015 Constitutional No fatigue 08/17/2015 Constitutional No fever 08/17/2015 Constitutional No insomnia 08/17/2015 Constitutional No malaise 08/17/2015 Constitutional No weight loss 08/17/2015 Constitutional No weight gain 08/17/2015 Respiratory No cough 12/2015 Musculoskeletal No joint complaint 08/17/2015 Dermatologic No rash 12/2015 Psychiatric anxiety 08/07 Constitutional No recent illness 07/24/2015 Constitutional No anorexia 07/24/2015 Constitutional No night sweats 07/24/2015 Constitutional No chills 07/24/2015 Constitutional No diaphoresis 07/24/2015 Constitutional fatigue 0 07/24/2015 Constitutional No fever 07/24/2015 Constitutional No insomnia 07/24/2015 Constitutional No malaise 07/24/2015 Constitutional No weight loss 07/24/2015 Constitutional No weight gain 07/24/2015 Eyes No eye erythema Eyes No eye discharge Cardiovascular No chest pain/pressure 07/24/2015 Musculoskeletal joint complaint 07/24/2015 Neurologic No alteration of consciousness 07/24/2015 Psychiatric depression 0 07/24/2015 Psychiatric anxiety 07/07 Constitutional recent illness 07/16/2015 Constitutional No anorexia 07/16/2015 Constitutional No night sweats 07/16/2015 Constitutional No chills 07/16/2015 Constitutional No diaphoresis 07/16/2015 Constitutional fatigue 0 07/16/2015 Constitutional No fever 07/16/2015 Constitutional No insomnia 07/16/2015 Constitutional No weight loss 07/16/2015 Constitutional No malaise 07/16/2015 Constitutional No weight gain 07/16/2015 Eyes No eye discharge Eyes No eye erythema 11/2015 Ears/Nose/Throat/Neck dizziness 07/16/2015 Ears/Nose/Throat/Neck No headache 07/16/2015 Ears/Nose/Throat/Neck No nasal discharge 07/16/2015 Cardiovascular No chest pain/pressure 07/16/2015 Cardiovascular No dyspnea 07/16/2015 Respiratory No cough 11/2015 Gastrointestinal No abdominal pain 07/16/2015 Gastrointestinal No diarrhea 07/16/2015 Gastrointestinal No constipation 07/16/2015 Genitourinary/Nephrology No dysuria 07/16/2015 Musculoskeletal bone pain 07/16/2015 Musculoskeletal joint complaint 07/16/2015 Dermatologic No sores Dermatologic No rash 11/2015 Neurologic No alteration of consciousness 07/16/2015 Psychiatric anxiety 0511/2015 Psychiatric depression 0 07/16/2015 Constitutional No recent illness 06/12/2015 Constitutional No anorexia 06/12/2015 Constitutional No night sweats 06/12/2015 Constitutional No chills 06/12/2015 Constitutional No diaphoresis 06/12/2015 Constitutional No fatigue 06/12/2015 Constitutional No fever 06/12/2015 Constitutional No insomnia 06/12/2015 Constitutional No malaise 06/12/2015 Constitutional No weight loss 06/12/2015 Constitutional No weight gain 06/12/2015 Constitutional No obesity 06/12/2015 Neurologic paresthesia 0 06/12/2015 Musculoskeletal neck pain 06/12/2015 Musculoskeletal myalgias 06/12/2015 Musculoskeletal muscle weakness 06/12/2015 Musculoskeletal No joint complaint 06/12/2015 Musculoskeletal stiffness 06/12/2015 Gastrointestinal No constipation 06/12/2015 Gastrointestinal No diarrhea 06/12/2015 Genitourinary/Nephrology No dysuria 06/12/2015 Respiratory No dyspnea 0 06/12/2015 Respiratory No dyspnea on exertion 06/12/2015 Cardiovascular No chest pain/pressure 06/12/2015 Constitutional No anorexia 03/08/2015 Constitutional No night sweats 03/08/2015 Constitutional No chills 03/08/2015 Constitutional No diaphoresis 03/08/2015 Constitutional fatigue 1 Constitutional No fever 03/08/2015 Constitutional insomnia 03/08/2015 Constitutional No malaise 03/08/2015 Eyes No eye discharge Eyes No eye erythema Eyes No vision change Ears/Nose/Throat/Neck No dizziness 03/08/2015 Ears/Nose/Throat/Neck No headache 03/08/2015 Cardiovascular No chest pain/pressure 03/08/2015 Cardiovascular No dyspnea 03/08/2015 Cardiovascular No edema 03/08/2015 Respiratory No productive sputum 03/08/2015 Respiratory cough 2014 Gastrointestinal No abdominal pain 03/08/2015 Gastrointestinal No constipation 03/08/2015 Gastrointestinal No diarrhea 03/08/2015 Dermatologic No rash Neurologic No alteration of consciousness 03/08/2015 Psychiatric anxiety 02/08 Psychiatric depression 1 Ears/Nose/Throat/Neck No sinus congestion 03/08/2015 Ears/Nose/Throat/Neck No sore throat 03/08/2015 Respiratory dyspnea 02/08 Musculoskeletal back pain 03/08/2015 Constitutional No recent illness 12/29/2014 Constitutional No anorexia 12/29/2014 Constitutional No night sweats 12/29/2014 Constitutional No chills 12/29/2014 Constitutional No diaphoresis 12/29/2014 Constitutional fatigue 1 Constitutional No fever 12/29/2014 Constitutional insomnia 12/29/2014 Constitutional No malaise 12/29/2014 Constitutional No weight loss 12/29/2014 Constitutional No weight gain 12/29/2014 Eyes No eye discharge Eyes No eye erythema Ears/Nose/Throat/Neck No dizziness 12/29/2014 Ears/Nose/Throat/Neck No headache 12/29/2014 Cardiovascular No chest pain/pressure 12/29/2014 Cardiovascular No dyspnea 12/29/2014 Cardiovascular No edema 12/29/2014 Respiratory No productive sputum 12/29/2014 Respiratory No cough Gastrointestinal No abdominal pain 12/29/2014 Gastrointestinal No constipation 12/29/2014 Gastrointestinal No diarrhea 12/29/2014 Genitourinary/Nephrology No dysuria 12/29/2014 Musculoskeletal No joint complaint 12/29/2014 Dermatologic No rash Neurologic No alteration of consciousness 12/29/2014 Psychiatric anxiety 12/08 Psychiatric depression 1 Eyes No vision change Constitutional No recent illness 11/17/2014 Constitutional No anorexia 11/17/2014 Constitutional No night sweats 11/17/2014 Constitutional No chills 11/17/2014 Constitutional No diaphoresis 11/17/2014 Constitutional fatigue 0 11/17/2014 Constitutional No fever 11/17/2014 Constitutional insomnia 11/17/2014 Constitutional No malaise 11/17/2014 Constitutional No weight loss 11/17/2014 Constitutional No weight gain 11/17/2014 Eyes No eye erythema 01/2015 Eyes No eye discharge Ears/Nose/Throat/Neck No dizziness 11/17/2014 Ears/Nose/Throat/Neck No headache 11/17/2014 Cardiovascular No chest pain/pressure 11/17/2014 Cardiovascular No dyspnea 11/17/2014 Cardiovascular No edema 11/17/2014 Respiratory No productive sputum 11/17/2014 Respiratory No cough 01/2015 Gastrointestinal No abdominal pain 11/17/2014 Gastrointestinal No constipation 11/17/2014 Gastrointestinal No diarrhea 11/17/2014 Genitourinary/Nephrology No dysuria 11/17/2014 Musculoskeletal No joint complaint 11/17/2014 Dermatologic No rash 01/2015 Neurologic No alteration of consciousness 11/17/2014 Psychiatric anxiety 11/07 Psychiatric depression 0 11/17/2014 Constitutional No recent illness 05/16/2014 Constitutional No anorexia 05/16/2014 Constitutional No night sweats 05/16/2014 Constitutional No chills 05/16/2014 Constitutional No diaphoresis 05/16/2014 Constitutional fatigue 0 05/16/2014 Constitutional No fever 05/16/2014 Constitutional No insomnia 05/16/2014 Constitutional weight gain 05/16/2014 Constitutional No weight loss 05/16/2014 Constitutional No malaise 05/16/2014 Eyes No eye discharge Eyes No eye erythema 12/2014 Ears/Nose/Throat/Neck No dizziness 05/16/2014 Cardiovascular No chest pain/pressure 05/16/2014 Respiratory No cough 12/2014 Gastrointestinal No vomiting 05/16/2014 Gastrointestinal No nausea 05/16/2014 Genitourinary/Nephrology No dysuria 05/16/2014 Dermatologic No rash 12/2014 Dermatologic No sores Neurologic No alteration of consciousness 05/16/2014 Psychiatric anxiety 05/07 Psychiatric depression 0 05/16/2014 Endocrine No dry or coarse skin 05/16/2014 Hematologic/Lymphatic No abnormal bl eeding and bruising 05/16/2014 Constitutional No recent illness 04/04/2014 Constitutional No anorexia 04/04/2014 Constitutional No night sweats 04/04/2014 Constitutional No chills 04/04/2014 Constitutional No diaphoresis 04/04/2014 Constitutional fatigue 0 04/04/2014 Constitutional No fever 04/04/2014 Constitutional insomnia 04/04/2014 Constitutional No malaise 04/04/2014 Constitutional No weight loss 04/04/2014 Constitutional weight gain 04/04/2014 Eyes No eye discharge Eyes No eye erythema Ears/Nose/Throat/Neck headache 04/04/2014 Ears/Nose/Throat/Neck No nasal discharge 04/04/2014 Cardiovascular No chest pain/pressure 04/04/2014 Cardiovascular No dyspnea 04/04/2014 Cardiovascular edema Respiratory No cough Gastrointestinal No vomiting 04/04/2014 Gastrointestinal No nausea 04/04/2014 Genitourinary/Nephrology No dysuria 04/04/2014 Dermatologic No rash Dermatologic No sores Neurologic No alteration of consciousness 04/04/2014 Psychiatric anxiety 03/10 Psychiatric depression 0 04/04/2014 Constitutional recent illness 12/01/2013 Constitutional anorexia 12/01/2013 Constitutional No chills 12/01/2013 Constitutional No diaphoresis 12/01/2013 Constitutional fatigue 0 12/01/2013 Constitutional No insomnia 12/01/2013 Constitutional No fever 12/01/2013 Constitutional No weight loss 12/01/2013 Constitutional No weight gain 12/01/2013 Eyes No eye erythema Eyes No eye discharge Ears/Nose/Throat/Neck No dizziness 12/01/2013 Ears/Nose/Throat/Neck No headache 12/01/2013 Cardiovascular No chest pain/pressure 12/01/2013 Respiratory No productive sputum 12/01/2013 Respiratory No cough Genitourinary/Nephrology No dysuria 12/01/2013 Musculoskeletal No joint complaint 12/01/2013 Dermatologic No sores Dermatologic No rash Neurologic No alteration of consciousness 12/01/2013 Endocrine No polydipsia 12/01/2013 Endocrine No polyuria Hematologic/Lymphatic No abnormal bl eeding and bruising 12/01/2013 Constitutional No anorexia 10/10/2013 Constitutional No night sweats 10/10/2013 Constitutional No chills 10/10/2013 Constitutional No diaphoresis 10/10/2013 Constitutional fatigue 0 10/10/2013 Constitutional No fever 10/10/2013 Constitutional insomnia 10/10/2013 Constitutional malaise 0 10/10/2013 Eyes No eye discharge Eyes No eye erythema 06/2013 Ears/Nose/Throat/Neck No dizziness 10/10/2013 Ears/Nose/Throat/Neck No headache 10/10/2013 Cardiovascular No chest pain/pressure 10/10/2013 Cardiovascular No dyspnea 10/10/2013 Cardiovascular No edema 10/10/2013 Respiratory No productive sputum 10/10/2013 Respiratory No chest congestion 10/10/2013 Respiratory No cough 06/2013 Gastrointestinal No abdominal pain 10/10/2013 Gastrointestinal No constipation 10/10/2013 Gastrointestinal No diarrhea 10/10/2013 Gastrointestinal No nausea 10/10/2013 Gastrointestinal No vomiting 10/10/2013 Genitourinary/Nephrology No dysuria 10/10/2013 Genitourinary/Nephrology No urinary urgenc y 10/10/2013 Genitourinary/Nephrology No urinary frequency 10/10/2013 Musculoskeletal No joint complaint 10/10/2013 Dermatologic No rash 06/2013 Dermatologic No sores Neurologic No alteration of consciousness 10/10/2013 Psychiatric anxiety 06/2013 Endocrine No dry or coarse skin 10/10/2013 Psychiatric depression 0 10/10/2013 Constitutional No recent illness 09/15/2013 Constitutional No anorexia 09/15/2013 Constitutional No night sweats 09/15/2013 Constitutional No chills 09/15/2013 Constitutional No diaphoresis 09/15/2013 Constitutional fatigue 0 09/15/2013 Constitutional No fever 09/15/2013 Constitutional No insomnia 09/15/2013 Constitutional No malaise 09/15/2013 Eyes No eye discharge Eyes No eye erythema 12/2013 Ears/Nose/Throat/Neck No headache 09/15/2013 Ears/Nose/Throat/Neck No dizziness 09/15/2013 Ears/Nose/Throat/Neck No sore throat 09/15/2013 Ears/Nose/Throat/Neck No otalgia 09/15/2013 Cardiovascular No chest pain/pressure 09/15/2013 Cardiovascular dyspnea 0 09/15/2013 Cardiovascular No hypertension 09/15/2013 Cardiovascular No palpitations 09/15/2013 Cardiovascular No syncope 09/15/2013 Respiratory No productive sputum 09/15/2013 Respiratory No cough 12/2013 Gastrointestinal No abdominal pain 09/15/2013 Gastrointestinal No constipation 09/15/2013 Gastrointestinal No diarrhea 09/15/2013 Genitourinary/Nephrology No dysuria 09/15/2013 Musculoskeletal joint complaint 09/15/2013 Musculoskeletal myalgias 09/15/2013 Dermatologic No rash 12/2013 Dermatologic No sores Neurologic No alteration of consciousness 09/15/2013 Psychiatric anxiety 09/06 Psychiatric depression 0 09/15/2013 Hematologic/Lymphatic No abnormal bl eeding and bruising 09/15/2013 Endocrine No weakness Endocrine No hair loss 0 09/15/2013 Constitutional recent illness 08/16/2013 Constitutional No anorexia 08/16/2013 Constitutional No night sweats 08/16/2013 Constitutional No chills 08/16/2013 Constitutional No diaphoresis 08/16/2013 Constitutional fatigue 0 08/16/2013 Constitutional No fever 08/16/2013 Constitutional No insomnia 08/16/2013 Constitutional No malaise 08/16/2013 Constitutional No weight loss 08/16/2013 Constitutional No weight gain 08/16/2013 Eyes No eye discharge Eyes No eye erythema 12/2013 Ears/Nose/Throat/Neck No dizziness 08/16/2013 Ears/Nose/Throat/Neck No headache 08/16/2013 Cardiovascular No chest pain/pressure 08/16/2013 Cardiovascular No dyspnea 08/16/2013 Cardiovascular No edema 08/16/2013 Respiratory No productive sputum 08/16/2013 Respiratory No chest congestion 08/16/2013 Respiratory No cough 12/2013 Gastrointestinal No abdominal pain 08/16/2013 Gastrointestinal No constipation 08/16/2013 Gastrointestinal No diarrhea 08/16/2013 Gastrointestinal No vomiting 08/16/2013 Gastrointestinal No nausea 08/16/2013 Genitourinary/Nephrology No dysuria 08/16/2013 Genitourinary/Nephrology No urinary urgenc y 08/16/2013 Genitourinary/Nephrology No urinary frequency 08/16/2013 Musculoskeletal No joint complaint 08/16/2013 Dermatologic No rash 12/2013 Dermatologic No sores Neurologic No alteration of consciousness 08/16/2013 Psychiatric anxiety 08/07 Endocrine No dry or coarse skin 08/16/2013 Constitutional No recent illness 06/06/2013 Constitutional No anorexia 06/06/2013 Constitutional No night sweats 06/06/2013 Constitutional No chills 06/06/2013 Constitutional No diaphoresis 06/06/2013 Constitutional No fatigue 06/06/2013 Constitutional No fever 06/06/2013 Constitutional No insomnia 06/06/2013 Constitutional No malaise 06/06/2013 Cardiovascular No chest pain/pressure 06/06/2013 Respiratory No cough Gastrointestinal No constipation 06/06/2013 Gastrointestinal No diarrhea 06/06/2013 Dermatologic No rash Dermatologic No sores Constitutional No recent illness 04/26/2013 Constitutional No anorexia 04/26/2013 Constitutional No night sweats 04/26/2013 Constitutional No chills 04/26/2013 Constitutional No diaphoresis 04/26/2013 Constitutional No fatigue 04/26/2013 Constitutional No fever 04/26/2013 Constitutional No insomnia 04/26/2013 Constitutional No malaise 04/26/2013 Cardiovascular No chest pain/pressure 04/26/2013 Respiratory No cough Gastrointestinal No constipation 04/26/2013 Gastrointestinal No diarrhea 04/26/2013 Dermatologic No sores Dermatologic No rash Constitutional No recent illness 04/14/2013 Constitutional No chills 04/14/2013 Constitutional fatigue 0 04/14/2013 Constitutional No fever 04/14/2013 Constitutional insomnia 04/14/2013 Constitutional No malaise 04/14/2013 Eyes No blindness 2013 Eyes No vision change Ears/Nose/Throat/Neck No dental pain 04/14/2013 Ears/Nose/Throat/Neck No dizziness 04/14/2013 Ears/Nose/Throat/Neck No dysphagia 04/14/2013 Ears/Nose/Throat/Neck No headache 04/14/2013 Ears/Nose/Throat/Neck No hearing loss 04/14/2013 Ears/Nose/Throat/Neck No nasal allergies 04/14/2013 Ears/Nose/Throat/Neck No sore throat 04/14/2013 Ears/Nose/Throat/Neck No postnasal drip 04/14/2013 Ears/Nose/Throat/Neck No sinus congestion 04/14/2013 Cardiovascular No chest pain/pressure 04/14/2013 Cardiovascular No dyspnea 04/14/2013 Cardiovascular No edema 04/14/2013 Cardiovascular No exercise intolerance 04/14/2013 Cardiovascular No fatigue 04/14/2013 Cardiovascular No near-syncope/dizziness 04/14/2013 Respiratory No chest tightness 04/14/2013 Respiratory No cough 08/2013 Respiratory No dyspnea 0 04/14/2013 Respiratory No pedal edema 04/14/2013 Respiratory snoring 08/2013 Respiratory No wheezing 04/14/2013 Psychiatric No anxiety 0 04/14/2013 Psychiatric depression 0 04/14/2013 Psychiatric disturbances of emotion 04/14/2013 Gastrointestinal No hemorrhoids 04/14/2013 Gastrointestinal No abdominal pain 04/14/2013 Gastrointestinal No constipation 04/14/2013 Gastrointestinal No diarrhea 04/14/2013 Gastrointestinal No gastroesophageal reflu x 04/14/2013 Gastrointestinal No melena 04/14/2013 Gastrointestinal No nausea 04/14/2013 Gastrointestinal No vomiting 04/14/2013 Musculoskeletal back pain 04/14/2013 Musculoskeletal neck pain 04/14/2013 Dermatologic No rash 08/2013 Dermatologic No scar 08/2013 Neurologic No dizziness 04/14/2013 Neurologic No headache 0 04/14/2013 Neurologic No neck pain 04/14/2013 Neurologic No syncope Physical Exam Exam Name System Name It em Name Status Result Effective Dates Notes Full Exam - General 1994 Constitutional general appearance Overall: well developed 11/15/2018 None Full Exam - General 1994 Constitutional general appearance Overall: in no acute distress 11/15/2018 None Full Exam - General 1994 Constitutional general appearance Overall: well nourished 11/15/2018 None Full Exam - General 1994 Ears/Nose/Throat otoscopic exam Overall: external auditory canals clear 11/15/2018 None Full Exam - General 1994 Ears/Nose/Throat otoscopic exam Overall: tympanic membranes clear 11/15/2018 None Full Exam - General 1994 Respiratory auscultation Overall: breath sounds clear bilaterally 11/15/2018 None Full Exam - General 1994 Respiratory respiratory effort/rhythm Overall: no retractions 11/15/2018 None Full Exam - General 1994 Respiratory respiratory effort/rhythm Overall: normal rate 11/15/2018 None Full Exam - General 1994 Cardiovascular extremities Overall: no clubbing 11/15/2018 None Full Exam - General 1994 Cardiovascular auscultation of heart Overall: regular rate 11/15/2018 None Full Exam - General 1994 Cardiovascular auscultation of heart Overall: normal heart sounds 11/15/2018 None Full Exam - General 1994 Cardiovascular auscultation of heart Systolic murmur: midsystolic 11/15/2018 None Full Exam - General 1994 Cardiovascular auscultation of heart Systolic murmur grade: II/ 11/15/2018 None Full Exam - General 1994 Cardiovascular auscultation of heart Systolic murmur location: LUSB 11/15/2018 None Full Exam - General 1994 Abdomen abdominal exam Overall: no tenderness 11/15/2018 None Full Exam - General 1994 Abdomen abdominal exam Overall: normal bowel sounds 11/15/2018 None Full Exam - General 1994 Musculoskeletal spine, ribs and pelvis Spine: full flexion 11/15/2018 None Full Exam - General 1994 Musculoskeletal spine, ribs and pelvis Spine: full extensio n 11/15/2018 None Full Exam - General 1994 Musculoskeletal gait and station Overall: normal gait 11/15/2018 None Full Exam - General 1994 Musculoskeletal gait and station Overall: normal station 11/15/2018 None Full Exam - General 1994 Integument inspection of skin Overall: no rash, lesions 11/15/2018 None Full Exam - General 1994 Neurologic cranial nerves Overall: crainial nerves 2 - 12 grossly intact 11/15/2018 None Full Exam - General 1994 Psychiatric orientation/consciousness Overall: oriented to person, place and time 11/15/2018 None Full Exam - General 1994 Psychiatric mood and affect Mood: depressed 11/15/2018 None Full Exam - General 1994 Constitutional general appearance Overall: well developed 10/14/2018 None Full Exam - General 1994 Constitutional general appearance Overall: in no acute distress 10/14/2018 None Full Exam - General 1994 Constitutional general appearance Overall: well nourished 10/14/2018 None Full Exam - General 1994 Ears/Nose/Throat otoscopic exam Overall: external auditory canals clear 10/14/2018 None Full Exam - General 1994 Ears/Nose/Throat otoscopic exam Overall: tympanic membranes clear 10/14/2018 None Full Exam - General 1994 Respiratory auscultation Overall: breath sounds clear bilaterally 10/14/2018 None Full Exam - General 1994 Respiratory respiratory effort/rhythm Overall: no retractions 10/14/2018 None Full Exam - General 1994 Respiratory respiratory effort/rhythm Overall: normal rate 10/14/2018 None Full Exam - General 1994 Cardiovascular extremities Overall: no clubbing 10/14/2018 None Full Exam - General 1994 Cardiovascular auscultation of heart Overall: regular rate 10/14/2018 None Full Exam - General 1994 Cardiovascular auscultation of heart Overall: normal heart sounds 10/14/2018 None Full Exam - General 1994 Cardiovascular auscultation of heart Systolic murmur: midsystolic 10/14/2018 None Full Exam - General 1994 Cardiovascular auscultation of heart Systolic murmur grade: II/ 10/14/2018 None Full Exam - General 1994 Cardiovascular auscultation of heart Systolic murmur location: LUSB 10/14/2018 None Full Exam - General 1994 Abdomen abdominal exam Overall: no tenderness 10/14/2018 None Full Exam - General 1994 Abdomen abdominal exam Overall: normal bowel sounds 10/14/2018 None Full Exam - General 1994 Musculoskeletal spine, ribs and pelvis Spine: full flexion 10/14/2018 None Full Exam - General 1994 Musculoskeletal spine, ribs and pelvis Spine: full extensio n 10/14/2018 None Full Exam - General 1994 Musculoskeletal gait and station Overall: normal gait 10/14/2018 None Full Exam - General 1994 Musculoskeletal gait and station Overall: normal station 10/14/2018 None Full Exam - General 1994 Integument inspection of skin Overall: no rash, lesions 10/14/2018 None Full Exam - General 1994 Neurologic cranial nerves Overall: crainial nerves 2 - 12 grossly intact 10/14/2018 None Full Exam - General 1994 Psychiatric orientation/consciousness Overall: oriented to person, place and time 10/14/2018 None Full Exam - General 1994 Psychiatric mood and affect Mood: depressed 10/14/2018 None Full Exam - Dermatology Constitutional general appearance Overall: well nourished 04/22/2018 None Full Exam - Dermatology Constitutional general appearance Overall: well developed 04/22/2018 None Full Exam - Dermatology Constitutional general appearance Overall: in no acute distress 04/22/2018 None Full Exam - Dermatology Constitutional general appearance Overall: of normal body habitus 04/22/2018 None Full Exam - Dermatology Constitutional general appearance Overall: well groomed 04/22/2018 None Full Exam - Dermatology Respiratory auscultation Overall: breath sounds clear bilaterally 04/22/2018 None Full Exam - Dermatology Respiratory respiratory effort/rhythm Overall: no retractions 04/22/2018 None Full Exam - Dermatology Respiratory respiratory effort/rhythm Overall: normal rate 04/22/2018 None Full Exam - Dermatology Integument insp & palp - left lower extremity Lesion: cellulitis 04/22/2018 0.5cm wound with fibrous tissue noted -erythema extends 2 cm surrounding and has decreased signficantly Full Exam - Dermatology Psychiatric orientation Overall: oriented to person, place and time 04/22/2018 None Full Exam - Dermatology Constitutional general appearance Overall: well nourished 04/20/2018 None Full Exam - Dermatology Constitutional general appearance Overall: well developed 04/20/2018 None Full Exam - Dermatology Constitutional general appearance Overall: in no acute distress 04/20/2018 None Full Exam - Dermatology Constitutional general appearance Overall: of normal body habitus 04/20/2018 None Full Exam - Dermatology Constitutional general appearance Overall: well groomed 04/20/2018 None Full Exam - Dermatology Psychiatric orientation Overall: oriented to person, place and time 04/20/2018 None Full Exam - Dermatology Respiratory auscultation Overall: breath sounds clear bilaterally 04/20/2018 None Full Exam - Dermatology Respiratory respiratory effort/rhythm Overall: no retractions 04/20/2018 None Full Exam - Dermatology Respiratory respiratory effort/rhythm Overall: normal rate 04/20/2018 None Full Exam - Dermatology Integument insp & palp - left lower extremity Lesion: cellulitis 04/20/2018 12cm x 7 cm area of erythema with 2 pinpoint puncture ni in the center of the wound Full Exam - Dermatology Constitutional general appearance Overall: well nourished 11/02/2017 None Full Exam - Dermatology Constitutional general appearance Overall: well developed 11/02/2017 None Full Exam - Dermatology Constitutional general appearance Overall: in no acute distress 11/02/2017 None Full Exam - Dermatology Constitutional general appearance Overall: of normal body habitus 11/02/2017 None Full Exam - Dermatology Constitutional general appearance Overall: well groomed 11/02/2017 None Full Exam - Dermatology Psychiatric orientation Overall: oriented to person, place and time 11/02/2017 None Full Exam - Dermatology Genitourinary labia and vagina Labia: tender 11/02/2017 very mild redness of the labia Full Exam - Dermatology Genitourinary labia and vagina Vaginal discharge: absent 11/02/2017 None Full Exam - Dermatology Genitourinary labia and vagina Vagina: no lesions present 11/02/2017 None Full Exam - General 1994 Constitutional general appearance Overall: well developed 10/13/2017 None Full Exam - General 1994 Constitutional general appearance Overall: in no acute distress 10/13/2017 None Full Exam - General 1994 Constitutional general appearance Overall: well nourished 10/13/2017 None Full Exam - General 1994 Ears/Nose/Throat otoscopic exam Overall: external auditory canals clear 10/13/2017 None Full Exam - General 1994 Ears/Nose/Throat otoscopic exam Overall: tympanic membranes clear 10/13/2017 None Full Exam - General 1994 Respiratory auscultation Overall: breath sounds clear bilaterally 10/13/2017 None Full Exam - General 1994 Respiratory respiratory effort/rhythm Overall: no retractions 10/13/2017 None Full Exam - General 1994 Respiratory respiratory effort/rhythm Overall: normal rate 10/13/2017 None Full Exam - General 1994 Cardiovascular extremities Overall: no clubbing 10/13/2017 None Full Exam - General 1994 Cardiovascular auscultation of heart Overall: regular rate 10/13/2017 None Full Exam - General 1994 Cardiovascular auscultation of heart Overall: normal heart sounds 10/13/2017 None Full Exam - General 1994 Cardiovascular auscultation of heart Systolic murmur: midsystolic 10/13/2017 None Full Exam - General 1994 Cardiovascular auscultation of heart Systolic murmur grade: II/ 10/13/2017 None Full Exam - General 1994 Cardiovascular auscultation of heart Systolic murmur location: LUSB 10/13/2017 None Full Exam - General 1994 Abdomen abdominal exam Overall: no tenderness 10/13/2017 None Full Exam - General 1994 Abdomen abdominal exam Overall: normal bowel sounds 10/13/2017 None Full Exam - General 1994 Musculoskeletal spine, ribs and pelvis Spine: full flexion 10/13/2017 None Full Exam - General 1994 Musculoskeletal spine, ribs and pelvis Spine: full extensio n 10/13/2017 None Full Exam - General 1994 Musculoskeletal gait and station Overall: normal gait 10/13/2017 None Full Exam - General 1994 Musculoskeletal gait and station Overall: normal station 10/13/2017 None Full Exam - General 1994 Integument inspection of skin Overall: no rash, lesions 10/13/2017 None Full Exam - General 1994 Neurologic cranial nerves Overall: crainial nerves 2 - 12 grossly intact 10/13/2017 None Full Exam - General 1994 Psychiatric orientation/consciousness Overall: oriented to person, place and time 10/13/2017 None Full Exam - General 1994 Psychiatric mood and affect Mood: depressed 10/13/2017 None Full Exam - General 1994 Constitutional general appearance Overall: well developed 07/20/2017 None Full Exam - General 1994 Constitutional general appearance Overall: in no acute distress 07/20/2017 None Full Exam - General 1994 Constitutional general appearance Overall: well nourished 07/20/2017 None Full Exam - General 1994 Ears/Nose/Throat otoscopic exam Overall: external auditory canals clear 07/20/2017 None Full Exam - General 1994 Ears/Nose/Throat otoscopic exam Overall: tympanic membranes clear 07/20/2017 None Full Exam - General 1994 Respiratory auscultation Overall: breath sounds clear bilaterally 07/20/2017 None Full Exam - General 1994 Respiratory respiratory effort/rhythm Overall: no retractions 07/20/2017 None Full Exam - General 1994 Respiratory respiratory effort/rhythm Overall: normal rate 07/20/2017 None Full Exam - General 1994 Cardiovascular extremities Overall: no clubbing 07/20/2017 None Full Exam - General 1994 Cardiovascular auscultation of heart Overall: regular rate 07/20/2017 None Full Exam - General 1994 Cardiovascular auscultation of heart Overall: normal heart sounds 07/20/2017 None Full Exam - General 1994 Cardiovascular auscultation of heart Systolic murmur: midsystolic 07/20/2017 None Full Exam - General 1994 Cardiovascular auscultation of heart Systolic murmur grade: II/ 07/20/2017 None Full Exam - General 1994 Cardiovascular auscultation of heart Systolic murmur location: LUSB 07/20/2017 None Full Exam - General 1994 Abdomen abdominal exam Overall: no tenderness 07/20/2017 None Full Exam - General 1994 Abdomen abdominal exam Overall: normal bowel sounds 07/20/2017 None Full Exam - General 1994 Musculoskeletal spine, ribs and pelvis Spine: full flexion 07/20/2017 None Full Exam - General 1994 Musculoskeletal spine, ribs and pelvis Spine: full extensio n 07/20/2017 None Full Exam - General 1994 Musculoskeletal gait and station Overall: normal gait 07/20/2017 None Full Exam - General 1994 Musculoskeletal gait and station Overall: normal station 07/20/2017 None Full Exam - General 1994 Integument inspection of skin Overall: no rash, lesions 07/20/2017 None Full Exam - General 1994 Neurologic cranial nerves Overall: crainial nerves 2 - 12 grossly intact 07/20/2017 None Full Exam - General 1994 Psychiatric orientation/consciousness Overall: oriented to person, place and time 07/20/2017 None Full Exam - General 1994 Psychiatric mood and affect Mood: depressed 07/20/2017 None Full Exam - General 1994 Psychiatric mood and affect Mood: anxious 07/20/2017 None Full Exam - General 1994 Constitutional general appearance Overall: well developed 06/09/2017 None Full Exam - General 1994 Constitutional general appearance Overall: in no acute distress 06/09/2017 None Full Exam - General 1994 Constitutional general appearance Overall: well nourished 06/09/2017 None Full Exam - General 1994 Ears/Nose/Throat otoscopic exam Overall: external auditory canals clear 06/09/2017 None Full Exam - General 1994 Ears/Nose/Throat otoscopic exam Overall: tympanic membranes clear 06/09/2017 None Full Exam - General 1994 Respiratory auscultation Overall: breath sounds clear bilaterally 06/09/2017 None Full Exam - General 1994 Respiratory respiratory effort/rhythm Overall: no retractions 06/09/2017 None Full Exam - General 1994 Respiratory respiratory effort/rhythm Overall: normal rate 06/09/2017 None Full Exam - General 1994 Cardiovascular extremities Overall: no clubbing 06/09/2017 None Full Exam - General 1994 Cardiovascular auscultation of heart Overall: regular rate 06/09/2017 None Full Exam - General 1994 Cardiovascular auscultation of heart Overall: normal heart sounds 06/09/2017 None Full Exam - General 1994 Cardiovascular auscultation of heart Systolic murmur: midsystolic 06/09/2017 None Full Exam - General 1994 Cardiovascular auscultation of heart Systolic murmur grade: II/ 06/09/2017 None Full Exam - General 1994 Cardiovascular auscultation of heart Systolic murmur location: LUSB 06/09/2017 None Full Exam - General 1994 Abdomen abdominal exam Overall: no tenderness 06/09/2017 None Full Exam - General 1994 Abdomen abdominal exam Overall: normal bowel sounds 06/09/2017 None Full Exam - General 1994 Musculoskeletal spine, ribs and pelvis Spine: full flexion 06/09/2017 None Full Exam - General 1994 Musculoskeletal spine, ribs and pelvis Spine: full extensio n 06/09/2017 None Full Exam - General 1994 Musculoskeletal gait and station Overall: normal gait 06/09/2017 None Full Exam - General 1994 Musculoskeletal gait and station Overall: normal station 06/09/2017 None Full Exam - General 1994 Integument inspection of skin Overall: no rash, lesions 06/09/2017 None Full Exam - General 1994 Psychiatric orientation/consciousness Overall: oriented to person, place and time 06/09/2017 None Full Exam - General 1994 Psychiatric mood and affect Mood: depressed 06/09/2017 None Full Exam - General 1994 Psychiatric mood and affect Mood: anxious 06/09/2017 None Full Exam - General 1994 Neurologic cranial nerves Overall: crainial nerves 2 - 12 grossly intact 06/09/2017 None Full Exam - General 1994 Constitutional general appearance Overall: well developed 05/12/2017 None Full Exam - General 1994 Constitutional general appearance Overall: in no acute distress 05/12/2017 None Full Exam - General 1994 Constitutional general appearance Overall: well nourished 05/12/2017 None Full Exam - General 1994 Ears/Nose/Throat otoscopic exam Overall: external auditory canals clear 05/12/2017 None Full Exam - General 1994 Ears/Nose/Throat otoscopic exam Overall: tympanic membranes clear 05/12/2017 None Full Exam - General 1994 Respiratory auscultation Overall: breath sounds clear bilaterally 05/12/2017 None Full Exam - General 1994 Respiratory respiratory effort/rhythm Overall: no retractions 05/12/2017 None Full Exam - General 1994 Respiratory respiratory effort/rhythm Overall: normal rate 05/12/2017 None Full Exam - General 1994 Cardiovascular extremities Overall: no clubbing 05/12/2017 None Full Exam - General 1994 Cardiovascular auscultation of heart Overall: regular rate 05/12/2017 None Full Exam - General 1994 Cardiovascular auscultation of heart Overall: normal heart sounds 05/12/2017 None Full Exam - General 1994 Cardiovascular auscultation of heart Murmur: new murmur 05/12/2017 None Full Exam - General 1994 Cardiovascular auscultation of heart Systolic murmur: midsystolic 05/12/2017 None Full Exam - General 1994 Cardiovascular auscultation of heart Systolic murmur grade: II/ 05/12/2017 None Full Exam - General 1994 Cardiovascular auscultation of heart Systolic murmur location: LUSB 05/12/2017 None Full Exam - General 1994 Abdomen abdominal exam Overall: no tenderness 05/12/2017 None Full Exam - General 1994 Abdomen abdominal exam Overall: normal bowel sounds 05/12/2017 None Full Exam - General 1994 Musculoskeletal spine, ribs and pelvis Spine: full flexion 05/12/2017 None Full Exam - General 1994 Musculoskeletal spine, ribs and pelvis Spine: full extensio n 05/12/2017 None Full Exam - General 1994 Musculoskeletal gait and station Overall: normal gait 05/12/2017 None Full Exam - General 1994 Musculoskeletal gait and station Overall: normal station 05/12/2017 None Full Exam - General 1994 Integument inspection of skin Overall: no rash, lesions 05/12/2017 None Full Exam - General 1994 Psychiatric orientation/consciousness Overall: oriented to person, place and time 05/12/2017 None Full Exam - General 1994 Psychiatric mood and affect Mood: depressed 05/12/2017 None Full Exam - General 1994 Psychiatric mood and affect Mood: anxious 05/12/2017 None Full Exam - General 1994 Constitutional general appearance Overall: well developed 12/01/2016 None Full Exam - General 1994 Constitutional general appearance Overall: in no acute distress 12/01/2016 None Full Exam - General 1994 Constitutional general appearance Overall: well nourished 12/01/2016 None Full Exam - General 1994 Ears/Nose/Throat otoscopic exam Overall: external auditory canals clear 12/01/2016 None Full Exam - General 1994 Ears/Nose/Throat otoscopic exam Overall: tympanic membranes clear 12/01/2016 None Full Exam - General 1994 Respiratory auscultation Overall: breath sounds clear bilaterally 12/01/2016 None Full Exam - General 1994 Respiratory respiratory effort/rhythm Overall: no retractions 12/01/2016 None Full Exam - General 1994 Respiratory respiratory effort/rhythm Overall: normal rate 12/01/2016 None Full Exam - General 1994 Cardiovascular extremities Overall: no clubbing 12/01/2016 None Full Exam - General 1994 Cardiovascular auscultation of heart Overall: regular rate 12/01/2016 None Full Exam - General 1994 Cardiovascular auscultation of heart Overall: normal heart sounds 12/01/2016 None Full Exam - General 1994 Cardiovascular auscultation of heart Murmur: new murmur 12/01/2016 None Full Exam - General 1994 Cardiovascular auscultation of heart Systolic murmur: midsystolic 12/01/2016 None Full Exam - General 1994 Cardiovascular auscultation of heart Systolic murmur grade: II/ 12/01/2016 None Full Exam - General 1994 Cardiovascular auscultation of heart Systolic murmur location: LUSB 12/01/2016 None Full Exam - General 1994 Abdomen abdominal exam Overall: no tenderness 12/01/2016 None Full Exam - General 1994 Abdomen abdominal exam Overall: normal bowel sounds 12/01/2016 None Full Exam - General 1994 Musculoskeletal spine, ribs and pelvis Spine: full flexion 12/01/2016 None Full Exam - General 1994 Musculoskeletal spine, ribs and pelvis Spine: full extensio n 12/01/2016 None Full Exam - General 1994 Musculoskeletal gait and station Overall: normal gait 12/01/2016 None Full Exam - General 1994 Musculoskeletal gait and station Overall: normal station 12/01/2016 None Full Exam - General 1994 Integument inspection of skin Overall: no rash, lesions 12/01/2016 None Full Exam - General 1994 Psychiatric orientation/consciousness Overall: oriented to person, place and time 12/01/2016 None Full Exam - General 1994 Psychiatric mood and affect Mood: depressed 12/01/2016 None Full Exam - General 1994 Psychiatric mood and affect Mood: anxious 12/01/2016 None Full Exam - General 1994 Constitutional general appearance Overall: well developed 08/05/2016 None Full Exam - General 1994 Constitutional general appearance Overall: in no acute distress 08/05/2016 None Full Exam - General 1994 Constitutional general appearance Overall: well nourished 08/05/2016 None Full Exam - General 1994 Ears/Nose/Throat otoscopic exam Overall: external auditory canals clear 08/05/2016 None Full Exam - General 1994 Ears/Nose/Throat otoscopic exam Overall: tympanic membranes clear 08/05/2016 None Full Exam - General 1994 Respiratory auscultation Overall: breath sounds clear bilaterally 08/05/2016 None Full Exam - General 1994 Respiratory respiratory effort/rhythm Overall: no retractions 08/05/2016 None Full Exam - General 1994 Respiratory respiratory effort/rhythm Overall: normal rate 08/05/2016 None Full Exam - General 1994 Cardiovascular extremities Overall: no clubbing 08/05/2016 None Full Exam - General 1994 Cardiovascular extremities Edema present: severity 1+ - 4+: trace 08/05/2016 None Full Exam - General 1994 Cardiovascular auscultation of heart Overall: regular rate 08/05/2016 None Full Exam - General 1994 Cardiovascular auscultation of heart Overall: normal heart sounds 08/05/2016 None Full Exam - General 1994 Cardiovascular auscultation of heart Systolic murmur: midsystolic 08/05/2016 None Full Exam - General 1994 Cardiovascular auscultation of heart Systolic murmur grade: II/ 08/05/2016 None Full Exam - General 1994 Cardiovascular auscultation of heart Systolic murmur location: LUSB 08/05/2016 None Full Exam - General 1994 Abdomen abdominal exam Overall: no tenderness 08/05/2016 None Full Exam - General 1994 Abdomen abdominal exam Overall: normal bowel sounds 08/05/2016 None Full Exam - General 1994 Musculoskeletal spine, ribs and pelvis Spine: full flexion 08/05/2016 None Full Exam - General 1994 Musculoskeletal spine, ribs and pelvis Spine: full extensio n 08/05/2016 None Full Exam - General 1994 Musculoskeletal gait and station Overall: normal gait 08/05/2016 None Full Exam - General 1994 Musculoskeletal gait and station Overall: normal station 08/05/2016 None Full Exam - General 1994 Integument inspection of skin Overall: no rash, lesions 08/05/2016 None Full Exam - General 1994 Psychiatric orientation/consciousness Overall: oriented to person, place and time 08/05/2016 None Full Exam - General 1994 Constitutional general appearance Overall: well developed 07/22/2016 None Full Exam - General 1994 Constitutional general appearance Overall: in no acute distress 07/22/2016 None Full Exam - General 1994 Constitutional general appearance Overall: well nourished 07/22/2016 None Full Exam - General 1994 Ears/Nose/Throat otoscopic exam Overall: external auditory canals clear 07/22/2016 None Full Exam - General 1994 Ears/Nose/Throat otoscopic exam Overall: tympanic membranes clear 07/22/2016 None Full Exam - General 1994 Respiratory auscultation Overall: breath sounds clear bilaterally 07/22/2016 None Full Exam - General 1994 Respiratory respiratory effort/rhythm Overall: no retractions 07/22/2016 None Full Exam - General 1994 Respiratory respiratory effort/rhythm Overall: normal rate 07/22/2016 None Full Exam - General 1994 Cardiovascular extremities Overall: no clubbing 07/22/2016 None Full Exam - General 1994 Cardiovascular auscultation of heart Overall: regular rate 07/22/2016 None Full Exam - General 1994 Cardiovascular auscultation of heart Overall: normal heart sounds 07/22/2016 None Full Exam - General 1994 Cardiovascular auscultation of heart Systolic murmur: midsystolic 07/22/2016 None Full Exam - General 1994 Cardiovascular auscultation of heart Systolic murmur grade: II/ 07/22/2016 None Full Exam - General 1994 Cardiovascular auscultation of heart Systolic murmur location: LUSB 07/22/2016 None Full Exam - General 1994 Abdomen abdominal exam Overall: no tenderness 07/22/2016 None Full Exam - General 1994 Abdomen abdominal exam Overall: normal bowel sounds 07/22/2016 None Full Exam - General 1994 Musculoskeletal spine, ribs and pelvis Spine: full flexion 07/22/2016 None Full Exam - General 1994 Musculoskeletal spine, ribs and pelvis Spine: full extensio n 07/22/2016 None Full Exam - General 1994 Musculoskeletal gait and station Overall: normal gait 07/22/2016 None Full Exam - General 1994 Musculoskeletal gait and station Overall: normal station 07/22/2016 None Full Exam - General 1994 Integument inspection of skin Overall: no rash, lesions 07/22/2016 None Full Exam - General 1994 Psychiatric orientation/consciousness Overall: oriented to person, place and time 07/22/2016 None Full Exam - General 1994 Cardiovascular extremities Edema present: severity 1+ - 4+: trace 07/22/2016 None Full Exam - General 1994 Constitutional general appearance Overall: well developed 03/06/2016 None Full Exam - General 1994 Constitutional general appearance Overall: in no acute distress 03/06/2016 None Full Exam - General 1994 Constitutional general appearance Overall: well nourished 03/06/2016 None Full Exam - General 1994 Ears/Nose/Throat otoscopic exam Overall: external auditory canals clear 03/06/2016 None Full Exam - General 1994 Ears/Nose/Throat otoscopic exam Overall: tympanic membranes clear 03/06/2016 None Full Exam - General 1994 Respiratory auscultation Overall: breath sounds clear bilaterally 03/06/2016 None Full Exam - General 1994 Respiratory respiratory effort/rhythm Overall: no retractions 03/06/2016 None Full Exam - General 1994 Respiratory respiratory effort/rhythm Overall: normal rate 03/06/2016 None Full Exam - General 1994 Cardiovascular extremities Overall: no clubbing 03/06/2016 None Full Exam - General 1994 Cardiovascular auscultation of heart Overall: regular rate 03/06/2016 None Full Exam - General 1994 Cardiovascular auscultation of heart Overall: normal heart sounds 03/06/2016 None Full Exam - General 1994 Musculoskeletal spine, ribs and pelvis Spine: full flexion 03/06/2016 None Full Exam - General 1994 Musculoskeletal spine, ribs and pelvis Spine: full extensio n 03/06/2016 None Full Exam - General 1994 Musculoskeletal gait and station Overall: normal gait 03/06/2016 None Full Exam - General 1994 Musculoskeletal gait and station Overall: normal station 03/06/2016 None Full Exam - General 1994 Integument inspection of skin Overall: no rash, lesions 03/06/2016 None Full Exam - General 1994 Psychiatric orientation/consciousness Overall: oriented to person, place and time 03/06/2016 None Full Exam - General 1994 Psychiatric mood and affect Mood: depressed 03/06/2016 None Full Exam - General 1994 Psychiatric mood and affect Mood: anxious 03/06/2016 None Full Exam - General 1994 Abdomen abdominal exam Overall: no tenderness 03/06/2016 None Full Exam - General 1994 Abdomen abdominal exam Overall: normal bowel sounds 03/06/2016 None Full Exam - General 1994 Cardiovascular auscultation of heart Murmur: new murmur 03/06/2016 None Full Exam - General 1994 Cardiovascular auscultation of heart Systolic murmur: midsystolic 03/06/2016 None Full Exam - General 1994 Cardiovascular auscultation of heart Systolic murmur grade: II/ 03/06/2016 None Full Exam - General 1994 Cardiovascular auscultation of heart Systolic murmur location: LUSB 03/06/2016 None Full Exam - General 1994 Constitutional general appearance Overall: well developed 12/07/2015 None Full Exam - General 1994 Constitutional general appearance Overall: in no acute distress 12/07/2015 None Full Exam - General 1994 Constitutional general appearance Overall: well nourished 12/07/2015 None Full Exam - General 1994 Ears/Nose/Throat otoscopic exam Overall: external auditory canals clear 12/07/2015 None Full Exam - General 1994 Ears/Nose/Throat otoscopic exam Overall: tympanic membranes clear 12/07/2015 None Full Exam - General 1994 Respiratory auscultation Overall: breath sounds clear bilaterally 12/07/2015 None Full Exam - General 1994 Respiratory respiratory effort/rhythm Overall: no retractions 12/07/2015 None Full Exam - General 1994 Respiratory respiratory effort/rhythm Overall: normal rate 12/07/2015 None Full Exam - General 1994 Cardiovascular extremities Overall: no clubbing 12/07/2015 None Full Exam - General 1994 Cardiovascular auscultation of heart Overall: regular rate 12/07/2015 None Full Exam - General 1994 Cardiovascular auscultation of heart Overall: normal heart sounds 12/07/2015 None Full Exam - General 1994 Cardiovascular auscultation of heart Overall: no murmurs 12/07/2015 None Full Exam - General 1994 Musculoskeletal spine, ribs and pelvis Spine: full flexion 12/07/2015 None Full Exam - General 1994 Musculoskeletal spine, ribs and pelvis Spine: full extensio n 12/07/2015 None Full Exam - General 1994 Musculoskeletal gait and station Overall: normal gait 12/07/2015 None Full Exam - General 1994 Musculoskeletal gait and station Overall: normal station 12/07/2015 None Full Exam - General 1994 Integument inspection of skin Overall: no rash, lesions 12/07/2015 None Full Exam - General 1994 Psychiatric orientation/consciousness Overall: oriented to person, place and time 12/07/2015 None Full Exam - General 1994 Psychiatric mood and affect Mood: depressed 12/07/2015 --Improved Full Exam - General 1994 Psychiatric mood and affect Mood: anxious 12/07/2015 --Improved Full Exam - General 1994 Constitutional general appearance Overall: well developed 11/09/2015 None Full Exam - General 1994 Constitutional general appearance Overall: in no acute distress 11/09/2015 None Full Exam - General 1994 Constitutional general appearance Overall: well nourished 11/09/2015 None Full Exam - General 1994 Ears/Nose/Throat otoscopic exam Overall: external auditory canals clear 11/09/2015 None Full Exam - General 1994 Ears/Nose/Throat otoscopic exam Overall: tympanic membranes clear 11/09/2015 None Full Exam - General 1994 Respiratory auscultation Overall: breath sounds clear bilaterally 11/09/2015 None Full Exam - General 1994 Respiratory respiratory effort/rhythm Overall: no retractions 11/09/2015 None Full Exam - General 1994 Respiratory respiratory effort/rhythm Overall: normal rate 11/09/2015 None Full Exam - General 1994 Cardiovascular extremities Overall: no clubbing 11/09/2015 None Full Exam - General 1994 Cardiovascular auscultation of heart Overall: regular rate 11/09/2015 None Full Exam - General 1994 Cardiovascular auscultation of heart Overall: normal heart sounds 11/09/2015 None Full Exam - General 1994 Cardiovascular auscultation of heart Overall: no murmurs 11/09/2015 None Full Exam - General 1994 Musculoskeletal spine, ribs and pelvis Spine: full flexion 11/09/2015 None Full Exam - General 1994 Musculoskeletal spine, ribs and pelvis Spine: full extensio n 11/09/2015 None Full Exam - General 1994 Musculoskeletal gait and station Overall: normal gait 11/09/2015 None Full Exam - General 1994 Musculoskeletal gait and station Overall: normal station 11/09/2015 None Full Exam - General 1994 Integument inspection of skin Overall: no rash, lesions 11/09/2015 None Full Exam - General 1994 Psychiatric orientation/consciousness Overall: oriented to person, place and time 11/09/2015 None Full Exam - General 1994 Psychiatric mood and affect Mood: depressed 11/09/2015 None Full Exam - General 1994 Psychiatric mood and affect Mood: anxious 11/09/2015 None Full Exam - General 1994 Constitutional general appearance Overall: well developed 08/17/2015 None Full Exam - General 1994 Constitutional general appearance Overall: in no acute distress 08/17/2015 None Full Exam - General 1994 Constitutional general appearance Overall: well nourished 08/17/2015 None Full Exam - General 1994 Ears/Nose/Throat otoscopic exam Overall: external auditory canals clear 08/17/2015 None Full Exam - General 1994 Ears/Nose/Throat otoscopic exam Overall: tympanic membranes clear 08/17/2015 None Full Exam - General 1994 Respiratory auscultation Overall: breath sounds clear bilaterally 08/17/2015 None Full Exam - General 1994 Respiratory respiratory effort/rhythm Overall: no retractions 08/17/2015 None Full Exam - General 1994 Respiratory respiratory effort/rhythm Overall: normal rate 08/17/2015 None Full Exam - General 1994 Cardiovascular extremities Overall: no clubbing 08/17/2015 None Full Exam - General 1994 Cardiovascular auscultation of heart Overall: regular rate 08/17/2015 None Full Exam - General 1994 Cardiovascular auscultation of heart Overall: normal heart sounds 08/17/2015 None Full Exam - General 1994 Cardiovascular auscultation of heart Overall: no murmurs 08/17/2015 None Full Exam - General 1994 Musculoskeletal spine, ribs and pelvis Spine: full flexion 08/17/2015 None Full Exam - General 1994 Musculoskeletal spine, ribs and pelvis Spine: full extensio n 08/17/2015 None Full Exam - General 1994 Musculoskeletal gait and station Overall: normal gait 08/17/2015 None Full Exam - General 1994 Musculoskeletal gait and station Overall: normal station 08/17/2015 None Full Exam - General 1994 Integument inspection of skin Overall: no rash, lesions 08/17/2015 None Full Exam - General 1994 Psychiatric orientation/consciousness Overall: oriented to person, place and time 08/17/2015 None Full Exam - General 1994 Psychiatric mood and affect Mood: depressed 08/17/2015 None Full Exam - General 1994 Psychiatric mood and affect Mood: anxious 08/17/2015 None Full Exam - General 1994 Constitutional general appearance Overall: well developed 07/24/2015 None Full Exam - General 1994 Constitutional general appearance Overall: in no acute distress 07/24/2015 None Full Exam - General 1994 Constitutional general appearance Overall: well nourished 07/24/2015 None Full Exam - General 1994 Ears/Nose/Throat otoscopic exam Overall: external auditory canals clear 07/24/2015 None Full Exam - General 1994 Ears/Nose/Throat otoscopic exam Overall: tympanic membranes clear 07/24/2015 None Full Exam - General 1994 Respiratory auscultation Overall: breath sounds clear bilaterally 07/24/2015 None Full Exam - General 1994 Respiratory respiratory effort/rhythm Overall: no retractions 07/24/2015 None Full Exam - General 1994 Respiratory respiratory effort/rhythm Overall: normal rate 07/24/2015 None Full Exam - General 1994 Cardiovascular extremities Overall: no clubbing 07/24/2015 None Full Exam - General 1994 Cardiovascular auscultation of heart Overall: regular rate 07/24/2015 None Full Exam - General 1994 Cardiovascular auscultation of heart Overall: normal heart sounds 07/24/2015 None Full Exam - General 1994 Cardiovascular auscultation of heart Overall: no murmurs 07/24/2015 None Full Exam - General 1994 Musculoskeletal spine, ribs and pelvis Spine: full flexion 07/24/2015 None Full Exam - General 1994 Musculoskeletal spine, ribs and pelvis Spine: full extensio n 07/24/2015 None Full Exam - General 1994 Musculoskeletal gait and station Overall: normal gait 07/24/2015 None Full Exam - General 1994 Musculoskeletal gait and station Overall: normal station 07/24/2015 None Full Exam - General 1994 Integument inspection of skin Overall: no rash, lesions 07/24/2015 None Full Exam - General 1994 Psychiatric orientation/consciousness Overall: oriented to person, place and time 07/24/2015 None Full Exam - General 1994 Psychiatric mood and affect Mood: depressed 07/24/2015 None Full Exam - General 1994 Psychiatric mood and affect Mood: anxious 07/24/2015 None Full Exam - General 1994 Constitutional general appearance Overall: well developed 07/16/2015 None Full Exam - General 1994 Constitutional general appearance Overall: in no acute distress 07/16/2015 None Full Exam - General 1994 Constitutional general appearance Overall: well nourished 07/16/2015 None Full Exam - General 1994 Respiratory auscultation Overall: breath sounds clear bilaterally 07/16/2015 None Full Exam - General 1994 Respiratory respiratory effort/rhythm Overall: no retractions 07/16/2015 None Full Exam - General 1994 Respiratory respiratory effort/rhythm Overall: normal rate 07/16/2015 None Full Exam - General 1994 Cardiovascular extremities Overall: no clubbing 07/16/2015 None Full Exam - General 1994 Cardiovascular auscultation of heart Overall: regular rate 07/16/2015 None Full Exam - General 1994 Cardiovascular auscultation of heart Overall: normal heart sounds 07/16/2015 None Full Exam - General 1994 Cardiovascular auscultation of heart Overall: no murmurs 07/16/2015 None Full Exam - General 1994 Musculoskeletal spine, ribs and pelvis Spine: full flexion 07/16/2015 None Full Exam - General 1994 Musculoskeletal spine, ribs and pelvis Spine: full extensio n 07/16/2015 None Full Exam - General 1994 Musculoskeletal gait and station Overall: normal gait 07/16/2015 None Full Exam - General 1994 Musculoskeletal gait and station Overall: normal station 07/16/2015 None Full Exam - General 1994 Integument inspection of skin Overall: no rash, lesions 07/16/2015 None Full Exam - General 1994 Psychiatric orientation/consciousness Overall: oriented to person, place and time 07/16/2015 None Full Exam - General 1994 Psychiatric mood and affect Mood: depressed 07/16/2015 None Full Exam - General 1994 Ears/Nose/Throat otoscopic exam Overall: external auditory canals clear 07/16/2015 None Full Exam - General 1994 Ears/Nose/Throat otoscopic exam Overall: tympanic membranes clear 07/16/2015 None Full Exam - General 1994 Psychiatric mood and affect Mood: anxious 07/16/2015 None Full Exam - General 1994 Constitutional general appearance Overall: well nourished 06/12/2015 None Full Exam - General 1994 Constitutional general appearance Overall: well developed 06/12/2015 None Full Exam - General 1994 Constitutional general appearance Overall: in no acute distress 06/12/2015 None Full Exam - General 1994 Respiratory auscultation Overall: breath sounds clear bilaterally 06/12/2015 None Full Exam - General 1994 Respiratory respiratory effort/rhythm Overall: normal rate 06/12/2015 None Full Exam - General 1994 Respiratory respiratory effort/rhythm Overall: no retractions 06/12/2015 None Full Exam - General 1994 Cardiovascular extremities Overall: no clubbing 06/12/2015 None Full Exam - General 1994 Cardiovascular auscultation of heart Overall: regular rate 06/12/2015 None Full Exam - General 1994 Cardiovascular auscultation of heart Overall: normal heart sounds 06/12/2015 None Full Exam - General 1994 Cardiovascular auscultation of heart Overall: no murmurs 06/12/2015 None Full Exam - General 1994 Musculoskeletal gait and station Overall: normal station 06/12/2015 None Full Exam - General 1994 Musculoskeletal gait and station Overall: normal gait 06/12/2015 None Full Exam - General 1994 Psychiatric mood and affect Mood: depressed 06/12/2015 None Full Exam - General 1994 Psychiatric orientation/consciousness Overall: oriented to person, place and time 06/12/2015 None Full Exam - General 1994 Integument inspection of skin Overall: no rash, lesions 06/12/2015 None Full Exam - General 1994 Musculoskeletal spine, ribs and pelvis Spine: full flexion 06/12/2015 None Full Exam - General 1994 Musculoskeletal spine, ribs and pelvis Spine: full extensio n 06/12/2015 None Full Exam - General 1994 Constitutional general appearance Overall: well developed 03/08/2015 None Full Exam - General 1994 Constitutional general appearance Overall: in no acute distress 03/08/2015 None Full Exam - General 1994 Constitutional general appearance Overall: well nourished 03/08/2015 None Full Exam - General 1994 Eyes conjunctiva/eyelids Overall: conjunctiva clear 03/08/2015 None Full Exam - General 1994 Eyes conjunctiva/eyelids Overall: cornea clear 03/08/2015 None Full Exam - General 1994 Eyes conjunctiva/eyelids Overall: eyelids normal 03/08/2015 None Full Exam - General 1994 Eyes pupils and irises Overall: pupils equal, round, reactive to light and accomodation 03/08/2015 None Full Exam - General 1994 Ears/Nose/Throat otoscopic exam Overall: external auditory canals clear 03/08/2015 None Full Exam - General 1994 Ears/Nose/Throat otoscopic exam Overall: tympanic membranes clear 03/08/2015 None Full Exam - General 1994 Ears/Nose/Throat oral cavity/pharynx/larynx Overall: oral mucosa clear 03/08/2015 None Full Exam - General 1994 Ears/Nose/Throat oral cavity/pharynx/larynx Overall: oropharyngeal mucosa clear 03/08/2015 None Full Exam - General 1994 Ears/Nose/Throat oral cavity/pharynx/larynx Overall: no masses 03/08/2015 None Full Exam - General 1994 Respiratory auscultation Overall: breath sounds clear bilaterally 03/08/2015 None Full Exam - General 1994 Respiratory respiratory effort/rhythm Overall: no retractions 03/08/2015 None Full Exam - General 1994 Respiratory respiratory effort/rhythm Overall: normal rate 03/08/2015 None Full Exam - General 1994 Cardiovascular extremities Overall: no clubbing 03/08/2015 None Full Exam - General 1994 Cardiovascular auscultation of heart Overall: regular rate 03/08/2015 None Full Exam - General 1994 Cardiovascular auscultation of heart Overall: normal heart sounds 03/08/2015 None Full Exam - General 1994 Abdomen abdominal exam Overall: normal bowel sounds 03/08/2015 None Full Exam - General 1994 Abdomen abdominal exam Contour: protuberant 03/08/2015 None Full Exam - General 1994 Lymphatic neck nodes Overall: anterior cervical chain benign 03/08/2015 None Full Exam - General 1994 Lymphatic neck nodes Overall: posterior cervical chain benign 03/08/2015 None Full Exam - General 1994 Neurologic cranial nerves Overall: crainial nerves 2 - 12 grossly intact 03/08/2015 None Full Exam - General 1994 Psychiatric orientation/consciousness Overall: oriented to person, place and time 03/08/2015 None Full Exam - General 1994 Psychiatric mood and affect Mood: anxious 03/08/2015 None Full Exam - General 1994 Musculoskeletal spine, ribs and pelvis Sacroiliac joints: tender right sacroiliac joint 03/08/2015 None Full Exam - General 1994 Musculoskeletal spine, ribs and pelvis Sacroiliac joints: tender left sacroiliac joint 03/08/2015 None Full Exam - General 1994 Musculoskeletal spine, ribs and pelvis Spine: tender @ lumbar spine 03/08/2015 None Full Exam - General 1994 Musculoskeletal lower extremity Overall: foot non-tender, without crepitus or defects 03/08/2015 Right foot has boot in place from foot surgery. Full Exam - General 1994 Musculoskeletal spine, ribs and pelvis Palpation: tender at greater trochanter 03/08/2015 None Full Exam - General 1994 Constitutional general appearance Overall: well developed 12/29/2014 None Full Exam - General 1994 Constitutional general appearance Overall: in no acute distress 12/29/2014 None Full Exam - General 1994 Constitutional general appearance Overall: well nourished 12/29/2014 None Full Exam - General 1994 Eyes conjunctiva/eyelids Overall: conjunctiva clear 12/29/2014 None Full Exam - General 1994 Eyes conjunctiva/eyelids Overall: cornea clear 12/29/2014 None Full Exam - General 1994 Eyes conjunctiva/eyelids Overall: eyelids normal 12/29/2014 None Full Exam - General 1994 Eyes pupils and irises Overall: pupils equal, round, reactive to light and accomodation 12/29/2014 None Full Exam - General 1994 Ears/Nose/Throat otoscopic exam Overall: external auditory canals clear 12/29/2014 None Full Exam - General 1994 Ears/Nose/Throat otoscopic exam Overall: tympanic membranes clear 12/29/2014 None Full Exam - General 1994 Ears/Nose/Throat oral cavity/pharynx/larynx Overall: oral mucosa clear 12/29/2014 None Full Exam - General 1994 Ears/Nose/Throat oral cavity/pharynx/larynx Overall: oropharyngeal mucosa clear 12/29/2014 None Full Exam - General 1994 Ears/Nose/Throat oral cavity/pharynx/larynx Overall: no masses 12/29/2014 None Full Exam - General 1994 Respiratory auscultation Overall: breath sounds clear bilaterally 12/29/2014 None Full Exam - General 1994 Respiratory respiratory effort/rhythm Overall: no retractions 12/29/2014 None Full Exam - General 1994 Respiratory respiratory effort/rhythm Overall: normal rate 12/29/2014 None Full Exam - General 1994 Cardiovascular extremities Overall: no clubbing 12/29/2014 None Full Exam - General 1994 Cardiovascular auscultation of heart Overall: regular rate 12/29/2014 None Full Exam - General 1994 Cardiovascular auscultation of heart Overall: normal heart sounds 12/29/2014 None Full Exam - General 1994 Cardiovascular auscultation of heart Overall: no murmurs 12/29/2014 None Full Exam - General 1994 Abdomen abdominal exam Overall: normal bowel sounds 12/29/2014 None Full Exam - General 1994 Abdomen abdominal exam Contour: protuberant 12/29/2014 None Full Exam - General 1994 Lymphatic neck nodes Overall: anterior cervical chain benign 12/29/2014 None Full Exam - General 1994 Lymphatic neck nodes Overall: posterior cervical chain benign 12/29/2014 None Full Exam - General 1994 Neurologic cranial nerves Overall: crainial nerves 2 - 12 grossly intact 12/29/2014 None Full Exam - General 1994 Psychiatric orientation/consciousness Overall: oriented to person, place and time 12/29/2014 None Full Exam - General 1994 Psychiatric mood and affect Mood: depressed 12/29/2014 States that she has a lot of mood swings. Full Exam - General 1994 Psychiatric mood and affect Mood: anxious 12/29/2014 None Full Exam - General 1994 Constitutional general appearance Overall: well developed 11/17/2014 None Full Exam - General 1994 Constitutional general appearance Overall: in no acute distress 11/17/2014 None Full Exam - General 1994 Constitutional general appearance Overall: well nourished 11/17/2014 None Full Exam - General 1994 Eyes conjunctiva/eyelids Overall: conjunctiva clear 11/17/2014 None Full Exam - General 1994 Eyes conjunctiva/eyelids Overall: cornea clear 11/17/2014 None Full Exam - General 1994 Eyes conjunctiva/eyelids Overall: eyelids normal 11/17/2014 None Full Exam - General 1994 Eyes pupils and irises Overall: pupils equal, round, reactive to light and accomodation 11/17/2014 None Full Exam - General 1994 Ears/Nose/Throat otoscopic exam Overall: external auditory canals clear 11/17/2014 None Full Exam - General 1994 Ears/Nose/Throat otoscopic exam Overall: tympanic membranes clear 11/17/2014 None Full Exam - General 1994 Ears/Nose/Throat oral cavity/pharynx/larynx Overall: oral mucosa clear 11/17/2014 None Full Exam - General 1994 Ears/Nose/Throat oral cavity/pharynx/larynx Overall: oropharyngeal mucosa clear 11/17/2014 None Full Exam - General 1994 Ears/Nose/Throat oral cavity/pharynx/larynx Overall: no masses 11/17/2014 None Full Exam - General 1994 Respiratory auscultation Overall: breath sounds clear bilaterally 11/17/2014 None Full Exam - General 1994 Respiratory respiratory effort/rhythm Overall: no retractions 11/17/2014 None Full Exam - General 1994 Respiratory respiratory effort/rhythm Overall: normal rate 11/17/2014 None Full Exam - General 1994 Cardiovascular extremities Overall: no clubbing 11/17/2014 None Full Exam - General 1994 Cardiovascular auscultation of heart Overall: regular rate 11/17/2014 None Full Exam - General 1994 Cardiovascular auscultation of heart Overall: normal heart sounds 11/17/2014 None Full Exam - General 1994 Cardiovascular auscultation of heart Overall: no murmurs 11/17/2014 None Full Exam - General 1994 Abdomen abdominal exam Overall: normal bowel sounds 11/17/2014 None Full Exam - General 1994 Abdomen abdominal exam Contour: protuberant 11/17/2014 None Full Exam - General 1994 Lymphatic neck nodes Overall: anterior cervical chain benign 11/17/2014 None Full Exam - General 1994 Lymphatic neck nodes Overall: posterior cervical chain benign 11/17/2014 None Full Exam - General 1994 Neurologic cranial nerves Overall: crainial nerves 2 - 12 grossly intact 11/17/2014 None Full Exam - General 1994 Psychiatric orientation/consciousness Overall: oriented to person, place and time 11/17/2014 None Full Exam - General 1994 Psychiatric mood and affect Mood: depressed 11/17/2014 None Full Exam - General 1994 Psychiatric mood and affect Mood: anxious 11/17/2014 None Full Exam - General 1994 Constitutional general appearance Evidence of Distress: tearful 11/17/2014 None Full Exam - General 1994 Constitutional general appearance Overall: well developed 04/04/2014 None Full Exam - General 1994 Constitutional general appearance Overall: in no acute distress 04/04/2014 None Full Exam - General 1994 Constitutional general appearance Overall: well nourished 04/04/2014 None Full Exam - General 1994 Eyes conjunctiva/eyelids Overall: conjunctiva clear 04/04/2014 None Full Exam - General 1994 Eyes conjunctiva/eyelids Overall: cornea clear 04/04/2014 None Full Exam - General 1994 Eyes conjunctiva/eyelids Overall: eyelids normal 04/04/2014 None Full Exam - General 1994 Eyes pupils and irises Overall: pupils equal, round, reactive to light and accomodation 04/04/2014 None Full Exam - General 1994 Ears/Nose/Throat otoscopic exam Overall: external auditory canals clear 04/04/2014 None Full Exam - General 1994 Ears/Nose/Throat otoscopic exam Overall: tympanic membranes clear 04/04/2014 None Full Exam - General 1994 Ears/Nose/Throat oral cavity/pharynx/larynx Overall: oral mucosa clear 04/04/2014 None Full Exam - General 1994 Ears/Nose/Throat oral cavity/pharynx/larynx Overall: oropharyngeal mucosa clear 04/04/2014 None Full Exam - General 1994 Ears/Nose/Throat oral cavity/pharynx/larynx Overall: no masses 04/04/2014 None Full Exam - General 1994 Respiratory auscultation Overall: breath sounds clear bilaterally 04/04/2014 None Full Exam - General 1994 Respiratory respiratory effort/rhythm Overall: no retractions 04/04/2014 None Full Exam - General 1994 Respiratory respiratory effort/rhythm Overall: normal rate 04/04/2014 None Full Exam - General 1994 Cardiovascular extremities Overall: no clubbing 04/04/2014 None Full Exam - General 1994 Cardiovascular auscultation of heart Overall: regular rate 04/04/2014 None Full Exam - General 1994 Cardiovascular auscultation of heart Overall: normal heart sounds 04/04/2014 None Full Exam - General 1994 Cardiovascular auscultation of heart Overall: no murmurs 04/04/2014 None Full Exam - General 1994 Abdomen abdominal exam Overall: normal bowel sounds 04/04/2014 None Full Exam - General 1994 Abdomen abdominal exam Contour: protuberant 04/04/2014 None Full Exam - General 1994 Lymphatic neck nodes Overall: anterior cervical chain benign 04/04/2014 None Full Exam - General 1994 Lymphatic neck nodes Overall: posterior cervical chain benign 04/04/2014 None Full Exam - General 1994 Neurologic cranial nerves Overall: crainial nerves 2 - 12 grossly intact 04/04/2014 None Full Exam - General 1994 Psychiatric orientation/consciousness Overall: oriented to person, place and time 04/04/2014 None Full Exam - General 1994 Constitutional general appearance Overall: well developed 12/01/2013 None Full Exam - General 1994 Constitutional general appearance Overall: in no acute distress 12/01/2013 None Full Exam - General 1994 Constitutional general appearance Overall: well nourished 12/01/2013 None Full Exam - General 1994 Eyes conjunctiva/eyelids Overall: conjunctiva clear 12/01/2013 None Full Exam - General 1994 Eyes conjunctiva/eyelids Overall: cornea clear 12/01/2013 None Full Exam - General 1994 Eyes conjunctiva/eyelids Overall: eyelids normal 12/01/2013 None Full Exam - General 1994 Eyes pupils and irises Overall: pupils equal, round, reactive to light and accomodation 12/01/2013 None Full Exam - General 1994 Ears/Nose/Throat otoscopic exam Overall: external auditory canals clear 12/01/2013 None Full Exam - General 1994 Ears/Nose/Throat otoscopic exam Overall: tympanic membranes clear 12/01/2013 None Full Exam - General 1994 Ears/Nose/Throat oral cavity/pharynx/larynx Overall: oral mucosa clear 12/01/2013 None Full Exam - General 1994 Ears/Nose/Throat oral cavity/pharynx/larynx Overall: oropharyngeal mucosa clear 12/01/2013 None Full Exam - General 1994 Ears/Nose/Throat oral cavity/pharynx/larynx Overall: no masses 12/01/2013 None Full Exam - General 1994 Respiratory auscultation Overall: breath sounds clear bilaterally 12/01/2013 None Full Exam - General 1994 Respiratory respiratory effort/rhythm Overall: no retractions 12/01/2013 None Full Exam - General 1994 Respiratory respiratory effort/rhythm Overall: normal rate 12/01/2013 None Full Exam - General 1994 Cardiovascular extremities Overall: no clubbing 12/01/2013 None Full Exam - General 1994 Cardiovascular auscultation of heart Overall: regular rate 12/01/2013 None Full Exam - General 1994 Cardiovascular auscultation of heart Overall: normal heart sounds 12/01/2013 None Full Exam - General 1994 Cardiovascular auscultation of heart Overall: no murmurs 12/01/2013 None Full Exam - General 1994 Abdomen abdominal exam Overall: normal bowel sounds 12/01/2013 None Full Exam - General 1994 Abdomen abdominal exam Contour: protuberant 12/01/2013 None Full Exam - General 1994 Lymphatic neck nodes Overall: anterior cervical chain benign 12/01/2013 None Full Exam - General 1994 Lymphatic neck nodes Overall: posterior cervical chain benign 12/01/2013 None Full Exam - General 1994 Neurologic cranial nerves Overall: crainial nerves 2 - 12 grossly intact 12/01/2013 None Full Exam - General 1994 Psychiatric orientation/consciousness Overall: oriented to person, place and time 12/01/2013 None Full Exam - General 1994 Abdomen abdominal exam Periumbilical: tender to palpation 12/01/2013 None Full Exam - General 1994 Abdomen abdominal exam Epigastric: tender to palpation 12/01/2013 None Full Exam - General 1994 Constitutional general appearance Overall: well developed 10/10/2013 None Full Exam - General 1994 Constitutional general appearance Overall: in no acute distress 10/10/2013 None Full Exam - General 1994 Constitutional general appearance Overall: well nourished 10/10/2013 None Full Exam - General 1994 Eyes conjunctiva/eyelids Overall: conjunctiva clear 10/10/2013 None Full Exam - General 1994 Eyes conjunctiva/eyelids Overall: cornea clear 10/10/2013 None Full Exam - General 1994 Eyes conjunctiva/eyelids Overall: eyelids normal 10/10/2013 None Full Exam - General 1994 Eyes pupils and irises Overall: pupils equal, round, reactive to light and accomodation 10/10/2013 None Full Exam - General 1994 Respiratory auscultation Overall: breath sounds clear bilaterally 10/10/2013 None Full Exam - General 1994 Respiratory respiratory effort/rhythm Overall: no retractions 10/10/2013 None Full Exam - General 1994 Respiratory respiratory effort/rhythm Overall: normal rate 10/10/2013 None Full Exam - General 1994 Cardiovascular extremities Overall: no clubbing 10/10/2013 None Full Exam - General 1994 Cardiovascular auscultation of heart Overall: regular rate 10/10/2013 None Full Exam - General 1994 Cardiovascular auscultation of heart Overall: normal heart sounds 10/10/2013 None Full Exam - General 1994 Cardiovascular auscultation of heart Overall: no murmurs 10/10/2013 None Full Exam - General 1994 Abdomen abdominal exam Overall: no tenderness 10/10/2013 None Full Exam - General 1994 Abdomen abdominal exam Overall: normal bowel sounds 10/10/2013 None Full Exam - General 1994 Abdomen abdominal exam Contour: protuberant 10/10/2013 None Full Exam - General 1994 Lymphatic neck nodes Overall: anterior cervical chain benign 10/10/2013 None Full Exam - General 1994 Lymphatic neck nodes Overall: posterior cervical chain benign 10/10/2013 None Full Exam - General 1994 Psychiatric orientation/consciousness Overall: oriented to person, place and time 10/10/2013 None Full Exam - General 1994 Ears/Nose/Throat oral cavity/pharynx/larynx Overall: oropharyngeal mucosa clear 10/10/2013 None Full Exam - General 1994 Ears/Nose/Throat oral cavity/pharynx/larynx Overall: no masses 10/10/2013 None Full Exam - General 1994 Ears/Nose/Throat oral cavity/pharynx/larynx Overall: oral mucosa clear 10/10/2013 None Full Exam - General 1994 Ears/Nose/Throat otoscopic exam Overall: tympanic membranes clear 10/10/2013 None Full Exam - General 1994 Ears/Nose/Throat otoscopic exam Overall: external auditory canals clear 10/10/2013 None Full Exam - General 1994 Neurologic cranial nerves Overall: crainial nerves 2 - 12 grossly intact 10/10/2013 None Full Exam - General 1994 Psychiatric orientation/consciousness Overall: oriented to person, place and time 09/15/2013 None Full Exam - General 1994 Neurologic deep tendon reflexes Overall: deep tendon reflexes intact 09/15/2013 None Full Exam - General 1994 Neurologic cranial nerves Overall: crainial nerves 2 - 12 grossly intact 09/15/2013 None Full Exam - General 1994 Lymphatic neck nodes Overall: anterior cervical chain benign 09/15/2013 None Full Exam - General 1994 Lymphatic neck nodes Overall: posterior cervical chain benign 09/15/2013 None Full Exam - General 1994 Musculoskeletal head and neck Overall: cervical spine benign 09/15/2013 None Full Exam - General 1994 Musculoskeletal head and neck Overall: head atraumatic 09/15/2013 None Full Exam - General 1994 Genitourinary uterus Overall: surgically absent 09/15/2013 None Full Exam - General 1994 Genitourinary cervix Overall: surgically absent 09/15/2013 None Full Exam - General 1994 Genitourinary labia and vagina Overall: normal hair distribution 09/15/2013 None Full Exam - General 1994 Genitourinary labia and vagina Overall: no lesions 09/15/2013 None Full Exam - General 1994 Genitourinary adnexa/parametria Overall: surgically absent 09/15/2013 None Full Exam - General 1994 Genitourinary urethra Overall: no masses 09/15/2013 None Full Exam - General 1994 Genitourinary bladder Overall: no tenderness 09/15/2013 None Full Exam - General 1994 Abdomen abdominal exam Overall: no tenderness 09/15/2013 None Full Exam - General 1994 Abdomen abdominal exam Overall: normal bowel sounds 09/15/2013 None Full Exam - General 1994 Chest/Breast breast and axillae palpation Overall: breasts non- tender 09/15/2013 None Full Exam - General 1994 Chest/Breast breast and axillae palpation Overall: axillae non- tender 09/15/2013 None Full Exam - General 1994 Chest/Breast breast and axillae palpation Overall: no nipple discharge 09/15/2013 None Full Exam - General 1994 Chest/Breast breast/chest inspection Overall: breasts to symmetric and without lesions 09/15/2013 None Full Exam - General 1994 Chest/Breast breast/chest inspection Overall: normal chest shape 09/15/2013 None Full Exam - General 1994 Cardiovascular auscultation of heart Overall: regular rate 09/15/2013 None Full Exam - General 1994 Cardiovascular auscultation of heart Overall: normal heart sounds 09/15/2013 None Full Exam - General 1994 Cardiovascular auscultation of heart Overall: no murmurs 09/15/2013 None Full Exam - General 1994 Respiratory auscultation Overall: breath sounds clear bilaterally 09/15/2013 None Full Exam - General 1994 Respiratory respiratory effort/rhythm Overall: normal rate 09/15/2013 None Full Exam - General 1994 Respiratory respiratory effort/rhythm Overall: no retractions 09/15/2013 None Full Exam - General 1994 Cardiovascular extremities Edema present: pitting 09/15/2013 None Full Exam - General 1994 Ears/Nose/Throat otoscopic exam Overall: tympanic membranes clear 09/15/2013 None Full Exam - General 1994 Ears/Nose/Throat otoscopic exam Overall: external auditory canals clear 09/15/2013 None Full Exam - General 1994 Ears/Nose/Throat oral cavity/pharynx/larynx Overall: oropharyngeal mucosa clear 09/15/2013 None Full Exam - General 1994 Ears/Nose/Throat oral cavity/pharynx/larynx Overall: no masses 09/15/2013 None Full Exam - General 1994 Ears/Nose/Throat oral cavity/pharynx/larynx Overall: oral mucosa clear 09/15/2013 None Full Exam - General 1994 Constitutional general appearance Overall: well nourished 09/15/2013 None Full Exam - General 1994 Constitutional general appearance Overall: well developed 09/15/2013 None Full Exam - General 1994 Constitutional general appearance Overall: in no acute distress 09/15/2013 None Full Exam - General 1995 Eyes conjunctiva/eyelids Overall: conjunctiva clear 09/15/2013 None Full Exam - General 1994 Eyes conjunctiva/eyelids Overall: eyelids normal 09/15/2013 None Full Exam - General 1994 Eyes conjunctiva/eyelids Overall: cornea clear 09/15/2013 None Full Exam - General 1994 Eyes pupils and irises Overall: pupils equal, round, reactive to light and accomodation 09/15/2013 None Full Exam - General 1994 Constitutional general appearance Overall: well developed 08/16/2013 None Full Exam - General 1994 Constitutional general appearance Overall: in no acute distress 08/16/2013 None Full Exam - General 1994 Constitutional general appearance Overall: well nourished 08/16/2013 None Full Exam - General 1994 Eyes conjunctiva/eyelids Overall: conjunctiva clear 08/16/2013 None Full Exam - General 1994 Eyes conjunctiva/eyelids Overall: cornea clear 08/16/2013 None Full Exam - General 1994 Eyes conjunctiva/eyelids Overall: eyelids normal 08/16/2013 None Full Exam - General 1994 Eyes pupils and irises Overall: pupils equal, round, reactive to light and accomodation 08/16/2013 None Full Exam - General 1994 Respiratory auscultation Overall: breath sounds clear bilaterally 08/16/2013 None Full Exam - General 1994 Respiratory respiratory effort/rhythm Overall: no retractions 08/16/2013 None Full Exam - General 1994 Respiratory respiratory effort/rhythm Overall: normal rate 08/16/2013 None Full Exam - General 1994 Cardiovascular extremities Overall: no clubbing 08/16/2013 None Full Exam - General 1994 Cardiovascular auscultation of heart Overall: regular rate 08/16/2013 None Full Exam - General 1994 Cardiovascular auscultation of heart Overall: normal heart sounds 08/16/2013 None Full Exam - General 1994 Cardiovascular auscultation of heart Overall: no murmurs 08/16/2013 None Full Exam - General 1994 Psychiatric orientation/consciousness Overall: oriented to person, place and time 08/16/2013 None Full Exam - General 1994 Abdomen abdominal exam Overall: no tenderness 08/16/2013 None Full Exam - General 1994 Abdomen abdominal exam Overall: normal bowel sounds 08/16/2013 None Full Exam - General 1994 Abdomen abdominal exam Contour: protuberant 08/16/2013 None Full Exam - General 1994 Lymphatic neck nodes Overall: anterior cervical chain benign 08/16/2013 None Full Exam - General 1994 Lymphatic neck nodes Overall: posterior cervical chain benign 08/16/2013 None Full Exam - General 1994 Constitutional general appearance Overall: well developed 06/06/2013 None Full Exam - General 1994 Constitutional general appearance Overall: in no acute distress 06/06/2013 None Full Exam - General 1994 Constitutional general appearance Overall: well nourished 06/06/2013 None Full Exam - General 1994 Respiratory auscultation Overall: breath sounds clear bilaterally 06/06/2013 None Full Exam - General 1994 Respiratory respiratory effort/rhythm Overall: no retractions 06/06/2013 None Full Exam - General 1994 Respiratory respiratory effort/rhythm Overall: normal rate 06/06/2013 None Full Exam - General 1994 Cardiovascular extremities Overall: no clubbing 06/06/2013 None Full Exam - General 1994 Cardiovascular auscultation of heart Overall: regular rate 06/06/2013 None Full Exam - General 1994 Cardiovascular auscultation of heart Overall: normal heart sounds 06/06/2013 None Full Exam - General 1994 Cardiovascular auscultation of heart Overall: no murmurs 06/06/2013 None Full Exam - General 1994 Psychiatric orientation/consciousness Overall: oriented to person, place and time 06/06/2013 None Full Exam - General 1994 Eyes pupils and irises Overall: pupils equal, round, reactive to light and accomodation 06/06/2013 None Full Exam - General 1994 Eyes conjunctiva/eyelids Overall: conjunctiva clear 06/06/2013 None Full Exam - General 1994 Eyes conjunctiva/eyelids Overall: eyelids normal 06/06/2013 None Full Exam - General 1994 Eyes conjunctiva/eyelids Overall: cornea clear 06/06/2013 None Full Exam - General 1994 Constitutional general appearance Overall: well developed 04/26/2013 None Full Exam - General 1994 Constitutional general appearance Overall: in no acute distress 04/26/2013 None Full Exam - General 1994 Constitutional general appearance Overall: well nourished 04/26/2013 None Full Exam - General 1994 Psychiatric orientation/consciousness Overall: oriented to person, place and time 04/26/2013 None Full Exam - General 1994 Cardiovascular auscultation of heart Overall: regular rate 04/26/2013 None Full Exam - General 1994 Cardiovascular auscultation of heart Overall: normal heart sounds 04/26/2013 None Full Exam - General 1994 Cardiovascular auscultation of heart Overall: no murmurs 04/26/2013 None Full Exam - General 1994 Cardiovascular extremities Overall: no clubbing 04/26/2013 None Full Exam - General 1994 Respiratory auscultation Overall: breath sounds clear bilaterally 04/26/2013 None Full Exam - General 1994 Respiratory respiratory effort/rhythm Overall: normal rate 04/26/2013 None Full Exam - General 1994 Respiratory respiratory effort/rhythm Overall: no retractions 04/26/2013 None Full Exam - General 1994 Constitutional general appearance Development: appears stated age 0204/14/2013 None Full Exam - General 1994 Constitutional general appearance Development: well developed 04/14/2013 None Full Exam - General 1994 Constitutional general appearance Hygiene/Attention to Grooming: good hygiene 04/14/2013 None Full Exam - General 1994 Eyes conjunctiva/eyelids Overall: conjunctiva clear 04/14/2013 None Full Exam - General 1994 Eyes conjunctiva/eyelids Overall: cornea clear 04/14/2013 None Full Exam - General 1994 Eyes conjunctiva/eyelids Overall: eyelids normal 04/14/2013 None Full Exam - General 1994 Eyes pupils and irises Overall: pupils equal, round, reactive to light and accomodation 04/14/2013 None Full Exam - General 1994 Ears/Nose/Throat otoscopic exam Overall: external auditory canals clear 04/14/2013 None Full Exam - General 1994 Ears/Nose/Throat otoscopic exam Overall: tympanic membranes clear 04/14/2013 None Full Exam - General 1994 Ears/Nose/Throat lips/teeth/gingiva Overall: benign lips 04/14/2013 None Full Exam - General 1994 Ears/Nose/Throat lips/teeth/gingiva Overall: normal dentition 04/14/2013 None Full Exam - General 1994 Ears/Nose/Throat oral cavity/pharynx/larynx Overall: hypopharynx benign 04/14/2013 None Full Exam - General 1994 Ears/Nose/Throat oral cavity/pharynx/larynx Overall: no masses 04/14/2013 None Full Exam - General 1994 Ears/Nose/Throat oral cavity/pharynx/larynx Overall: oral mucosa clear 04/14/2013 None Full Exam - General 1995 Ears/Nose/Throat oral cavity/pharynx/larynx Overall: oropharyngeal mucosa clear 04/14/2013 None Full Exam - General 1994 Respiratory auscultation Overall: breath sounds clear bilaterally 04/14/2013 None Full Exam - General 1994 Respiratory respiratory effort/rhythm Overall: no retractions 04/14/2013 None Full Exam - General 1994 Respiratory respiratory effort/rhythm Overall: normal rate 04/14/2013 None Full Exam - General 1994 Cardiovascular extremities Overall: no clubbing 04/14/2013 None Full Exam - General 1994 Cardiovascular auscultation of heart Overall: normal heart sounds 04/14/2013 None Full Exam - General 1994 Cardiovascular auscultation of heart Overall: regular rate 04/14/2013 None Full Exam - General 1994 Abdomen abdominal exam Overall: no tenderness 04/14/2013 None Full Exam - General 1994 Abdomen abdominal exam Overall: normal bowel sounds 04/14/2013 None Full Exam - General 1994 Integument inspection of skin Overall: few scattered moles, no gross abnormalities 04/14/2013 None Full Exam - General 1994 Neurologic deep tendon reflexes Overall: deep tendon reflexes intact 04/14/2013 None Full Exam - General 1994 Neurologic cranial nerves Overall: crainial nerves 2 - 12 grossly intact 04/14/2013 None Full Exam - General 1994 Psychiatric orientation/consciousness Overall: oriented to person, place and time 04/14/2013 None Full Exam - General 1994 Psychiatric mood and affect Overall: normal mood and affect 04/14/2013 None Procedures Procedure Codes Date URINALYSIS NONAUTO W /O SCOPE CPT-4: 41308 11/02/2017 OCCULT BLOOD FECES CPT- 4: 17569 12/08/2016 IMMUNIZATION ADMIN CPT- 4: 85733 12/07/2015 FLU VACC 4 AMBER 3 YRS [address] IM SNOM[address] CT: [id number] CPT-4: 70560 12/07/2015 URINALYSIS NONAUTO W /O SCOPE CPT-4: 19610 08/17/2015 CHEM 14 (COMPREHEN M ETABOLIC PANEL) CPT-4: 77707 10/06/2013 VIT D TOTL (VITAMIN D 25 HYDROXY) CPT-4: 42655 10/06/2013 CRP (C-REACTIVE PROT EIN) CPT-4: 47709 09/15/2013 ESR (RBC SED RATE AU TOMATED) CPT-4: 81732 09/15/2013 ROUTINE VENIPUNCTURE CPT-4: 21269 09/15/2013 URINALYSIS NONAUTO W /O SCOPE CPT-4: 98069 08/16/2013 C URINE RT CPT-4: 3904319 08/16/2013 C URINE RT (URINE CU LTURE/COLONY COUNT) CPT-4: 58478 08/16/2013 ROUTINE VENIPUNCTURE CPT-4: 01497 04/26/2013 Vital Signs Date Vital 11/15/2018 Blood Pressure 1: 142/88 Code: 8480-6 Heart Rate 1: 91 bpm Height: 5'5" SpO2: 98% 10/14/2018 Blood Pressure 1: 140/82 Code: 8480-6 BMI: 37.9 Code: 08305-6 Heart Rate 1: 80 bpm Height: 5'5" SpO2: 96% Weight: 228 lbs 04/22/2018 Heigh t: Weight: 04/20/2018 Blood Pressure 1: 150/90 Code: 8480-6 Heart Rate 1: 104 bpm Height: SpO2: 95% Weight: 11/02/2017 Blood Pressure 1: 130/76 Code: 8480-6 BMI: 37.6 Code: 94513-6 Heart Rate 1: 68 bpm Height: 5'5" SpO2: 98% Weight: 226 lbs 10/13/2017 Blood Pressure 1: 140/86 Code: 8480-6 BMI: 37.4 Code: 66472-1 Heart Rate 1: 78 bpm Height: 5'5" SpO2: 98% Weight: 225 lbs 07/20/2017 Blood Pressure 1: 128/80 Code: 8480-6 BMI: 39.1 Code: 20621-5 Heart Rate 1: 75 bpm Height: 5'5" SpO2: 98% Weight: 235 lbs 06/09/2017 Blood Pressure 1: 150/92 Code: 8480-6 BMI: 39.1 Code: 29200-6 Heart Rate 1: 106 bpm Height: 5'5" SpO2: 98% Weight: 235 lbs 05/12/2017 Blood Pressure 1: 144/68 Code: 8480-6 BMI: 38.9 Code: 15773-3 Heart Rate 1: 89 bpm Height: 5'5" SpO2: 98% Weight: 234 lbs 12/01/2016 Blood Pressure 1: 140/88 Code: 8480-6 BMI: 39.6 Code: 44498-0 Heart Rate 1: 101 bpm Height: 5'5" SpO2: 97% Weight: 238 lbs 08/05/2016 Blood Pressure 1: 134/82 Code: 8480-6 Heart Rate 1: 113 bpm Height: 5'5" SpO2: 98% 07/22/2016 Blood Pressure 1: 142/84 Code: 8480-6 BMI: 39.6 Code: 43548-3 Heart Rate 1: 103 bpm Height: 5'5" SpO2: 97% Weight: 238 lbs 03/06/2016 Blood Pressure 1: 138/86 Code: 8480-6 Heart Rate 1: 100 bpm SpO2: 96% Weight: 246 lbs 12/07/2015 Blood Pressure 1: 140/78 Code: 8480-6 BMI: 40.8 Code: 95777-7 Heart Rate 1: 97 bpm Height: 5'6" SpO2: 98% Weight: 250 lbs 11/09/2015 Blood Pressure 1: 118/84 Code: 8480-6 BMI: 40.7 Code: 54413-1 Heart Rate 1: 85 bpm Height: 5'6" SpO2: 98% Weight: 249 lbs 08/17/2015 Blood Pressure 1: 122/82 Code: 8480-6 BMI: 39.4 Code: 66431-3 Heart Rate 1: 86 bpm Height: 5'6" SpO2: 95% Weight: 241 lbs 07/24/2015 Blood Pressure 1: 118/76 Code: 8480-6 BMI: 39.9 Code: 22366-7 Heart Rate 1: 97 bpm Height: 5'6" SpO2: 96% Weight: 244 lbs 07/16/2015 Blood Pressure 1: 158/80 Code: 8480-6 Blood Pressure 1: 120/86 Code: 8480-6 Heart Rate 1: 105 bpm Height: 5'6" SpO2: 98% Weight: 06/12/2015 Blood Pressure 1: 128/82 Code: 8480-6 BMI: 39.9 Code: 20384-0 Heart Rate 1: 89 bpm Height: 5'6" SpO2: 98% Weight: 244 lbs 03/08/2015 Blood Pressure 1: 130/86 Code: 8480-6 Heart Rate 1: 98 bpm Height: 5'6" SpO2: 97% Weight: 12/29/2014 Blood Pressure 1: 138/88 Code: 8480-6 BMI: 39.2 Code: 34076-7 Heart Rate 1: 109 bpm Height: 5'6" SpO2: 97% Weight: 240 lbs 11/17/2014 Blood Pressure 1: 170/98 Code: 8480-6 BMI: 39.7 Code: 20346-7 Heart Rate 1: 92 bpm Height: 5'6" SpO2: 98% Weight: 243 lbs 05/16/2014 Blood Pressure 1: 130/82 Code: 8480-6 BMI: 39.2 Code: 22019-2 Heart Rate 1: 88 bpm Height: 5'6" Weight: 240 lbs 04/04/2014 Blood Pressure 1: 146/92 Code: 8480-6 Blood Pressure 2: 136/86 Code: 8480-6 BMI: 39.9 Code: 11242-2 Heart Rate 1: 68 bpm Height: 5'6" Weight: 244 lbs 12/01/2013 Blood Pressure 1: 142/80 Code: 8480-6 BMI: 38.4 Code: 78702-1 Heart Rate 1: 80 bpm Height: 5'6" Weight: 235 lbs 10/10/2013 Blood Pressure 1: 128/88 Code: 8480-6 BMI: 38.7 Code: 69682-9 Heart Rate 1: 88 bpm Height: 5'6" Weight: 237 lbs 09/15/2013 Blood Pressure 1: 112/74 Code: 8480-6 BMI: 39.0 Code: 11338-9 Heart Rate 1: 80 bpm Height: 5'6" Weight: 239 lbs 08/16/2013 Blood Pressure 1: 124/64 Code: 8480-6 BMI: 39.0 Code: 83914-9 Heart Rate 1: 88 bpm Height: 5'6" Weight: 239 lbs 06/06/2013 Blood Pressure 1: 120/72 Code: 8480-6 BMI: 37.9 Code: 39705-1 Heart Rate 1: 84 bpm Height: 5'6" Weight: 232 lbs 04/26/2013 Blood Pressure 1: 148/86 Code: 8480-6 BMI: 37.7 Code: 97508-4 Heart Rate 1: 84 bpm Height: 5'6" Weight: 231 lbs 04/14/2013 Blood Pressure 1: 148/92 Code: 8480-6 BMI: 38.2 Code: 62595-6 Heart Rate 1: 88 bpm Height: 5'6" Respiratory Rate: 16 bpm Weight: 234 lbs Functional Status No Functional Status data History of Present Illness Symptom Name Status Resu lt Effective Date Notes Location diffusely 11/15/2018 None Quality chronic 11/15/2018 None Onset and Resolution o ngoing 11/15/2018 None Onset of Symptom _ yea rs ago 11/15/2018 None Frequency of Episodes hourly 11/15/2018 None Pertinent Findings ins omnia 11/15/2018 None Pertinent Findings lef t arm numbness 11/15/2018 None Pertinent Findings lef t arm weakness 11/15/2018 None Pertinent Findings lef t leg numbness 11/15/2018 None Pertinent Findings lef t leg weakness 11/15/2018 None Pertinent Findings rig ht arm numbness 11/15/2018 None Pertinent Findings rig ht arm weakness 11/15/2018 None Pertinent Findings rig ht leg numbness 11/15/2018 None Pertinent Findings rig ht leg weakness 11/15/2018 None Triggers no known asso ciated factors 11/15/2018 None Alleviating Factors me dication 11/15/2018 None Severity mild 11/15/2018 None Sports Participation n ot significant 11/15/2018 None Onset and Resolution o ngoing 10/14/2018 None Quality worsening 10/14/2018 None Onset of Symptom 3-4 m onths ago 10/14/2018 None Frequency of Episodes daily 10/14/2018 None Quality acute 10/14/2018 None Quality constant 10/14/2018 None Mechanism of injury un known 10/14/2018 None Pertinent Findings ext remity numbness 10/14/2018 None Pertinent Findings ext remity weakness 10/14/2018 None Limitation on Activities moderately limits activities 10/14/2018 None Location diffusely 10/14/2018 None Location in multiple l imbs 10/14/2018 None Quality chronic 10/14/2018 None Onset and Resolution D enies ongoing 10/14/2018 None Limitation on Activities moderately limits activities 10/14/2018 None Frequency of Episodes daily 10/14/2018 None Significant Medical Conditions spinal stenosis 10/14/2018 None Radiating down the lef t arm 10/14/2018 None Quality acute 04/22/2018 None Onset and Resolution o ngoing 04/22/2018 None Limitation on Activities does not limit activities 04/22/2018 None Significant Medical Conditions puncture wound 04/22/2018 spider bite left thigh Pertinent Findings Den ies fever 04/22/2018 None Pertinent Findings Den ies pain 04/22/2018 None Pertinent Findings red ness 04/22/2018 None Onset of Symptom 5 day s ago 04/22/2018 None Frequency of Episodes decreasing 04/22/2018 states it is much better today Quality acute 04/20/2018 None Onset and Resolution o ngoing 04/20/2018 None Onset of Symptom 3 day s ago 04/20/2018 None Limitation on Activities does not limit activities 04/20/2018 None Frequency of Episodes increasing 04/20/2018 None Significant Medical Conditions puncture wound 04/20/2018 spider bite left thigh Pertinent Findings Den ies fever 04/20/2018 None Pertinent Findings Den ies pain 04/20/2018 None Pertinent Findings red ness 04/20/2018 None rash Location-Major in t he groin area 11/02/2017 None rash Onset and Resolution sudden in onset 11/02/2017 None rash Onset of Symptom 1 week ago 11/02/2017 None rash Quality acute 11/02/2017 None rash Color erythematous 11/02/2017 None rash Frequency of Episodes decreasing 11/02/2017 None rash Limitation on Activities does not limit activities 11/02/2017 None rash Severity moderate 11/02/2017 None rash Prior Treatments un responsive to treatment 11/02/2017 None rash Triggers no known t riggers 11/02/2017 None hypertension Quality chr onic 10/13/2017 None hypertension Quality giorgio olivares hypertension 10/13/2017 None hypertension Onset and Resolution ongoing 10/13/2017 None hypertension Onset of Symptom during adulthood 10/13/2017 None hypertension Blood Pressure Values not checking blood pressure at home 10/13/2017 None hypertension Severity no t consistently severe symptoms, the symptoms fluctuate from no symptoms to anxiety and headaches 10/13/2017 None hypertension Frequency of Episodes unchanged 10/13/2017 None hypertension Significant Family History cerebrovascular accident 10/13/2017 None hypertension Alleviating Factors medication 10/13/2017 None hypertension Pertinent Findings Denies dizziness 10/13/2017 None hypertension Pertinent Findings Denies dyspnea 10/13/2017 None diabetes mellitus Quality chronic 10/13/2017 None diabetes mellitus Quality non-insulin dependent 10/13/2017 None diabetes mellitus Alleviating Factors medication 10/13/2017 None diabetes mellitus Exacerbating Factors diet 10/13/2017 None hypertension Significant Medical Condition s diabetes 10/13/2017 None diabetes mellitus Test results Pt not checking blood glucose readings at home 10/13/2017 None hypertension Quality chr onic 07/20/2017 None hypertension Quality giorgio olivares hypertension 07/20/2017 None hypertension Onset and Resolution ongoing 07/20/2017 None hypertension Onset of Symptom during adulthood 07/20/2017 None hypertension Blood Pressure Values not checking blood pressure at home 07/20/2017 None hypertension Severity no t consistently severe symptoms, the symptoms fluctuate from no symptoms to anxiety and headaches 07/20/2017 None hypertension Frequency of Episodes unchanged 07/20/2017 None hypertension Significant Family History cerebrovascular accident 07/20/2017 None hypertension Alleviating Factors medication 07/20/2017 None hypertension Pertinent Findings Denies dizziness 07/20/2017 None hypertension Pertinent Findings Denies dyspnea 07/20/2017 None depression Quality chron ic 07/20/2017 None depression Onset and Resolution ongoing 07/20/2017 None depression Alleviating Factors medication 07/20/2017 None hypertension Quality giorgio marshall hypertension 06/09/2017 None hypertension Onset and Resolution ongoing 06/09/2017 None hypertension Onset of Symptom during adulthood 06/09/2017 None hypertension Alleviating Factors medication 06/09/2017 None depression Quality chron ic 06/09/2017 None depression Onset and Resolution ongoing 06/09/2017 None depression Alleviating Factors medication 06/09/2017 None hypertension Blood Pressure Values not checking blood pressure at home 06/09/2017 None hypertension Pertinent Findings Denies dizziness 06/09/2017 None hypertension Pertinent Findings Denies dyspnea 06/09/2017 None hypertension Quality chr onic 06/09/2017 None hypertension Severity no t consistently severe symptoms, the symptoms fluctuate from no symptoms to anxiety and headaches 06/09/2017 None hypertension Frequency of Episodes unchanged 06/09/2017 None hypertension Significant Family History cerebrovascular accident 06/09/2017 None blood pressure followup Quality chronic 05/12/2017 None blood pressure followup Onset and Re solution ongoing 05/12/2017 None blood pressure followup Onset of Symptom during adulthood 05/12/2017 None blood pressure followup Severity mild 05/12/2017 None blood pressure followup Blood Pressu re Values not checking blood pressure at home 05/12/2017 None blood pressure followup Frequency of Episodes unchanged 05/12/2017 Non e blood pressure followup Triggers stress 05/12/2017 None blood pressure followup Pertinent Findings anxiety 05/12/2017 None blood pressure followup Pertinent Findings decreased energy 05/12/2017 None joint complaint Quality aching 12/01/2016 None joint complaint Quality burning 12/01/2016 None joint complaint Quality constant 12/01/2016 None joint complaint Quality dull pain 12/01/2016 None joint complaint Onset and Resolution sudden in onset 12/01/2016 None joint complaint Onset of Symptom 1 months ago 12/01/2016 None joint complaint Limitation on Activities moderately limits activities 12/01/2016 None joint complaint Frequency of Episodes daily 12/01/2016 None joint complaint Pertinent Findings limitation of motion 12/01/2016 None joint complaint Pertinent Findings muscle pain 12/01/2016 None joint complaint Pertinent Findings muscle swelling 12/01/2016 None joint complaint Pertinent Findings warmth 12/01/2016 None joint complaint Triggers no known associated factors 12/01/2016 None pre-op/surgery consult Prior Treatments PT 08/05/2016 None pre-op/surgery consult Procedure to be performed lumbar surgery 08/05/2016 None pre-op/surgery consult Post-operativ e instructions physical activity restrictions 08/05 None pre-op/surgery consult Significant M edical Conditions diabetes 08/05/2016 None pre-op/surgery consult Significant M edications NSAID's 08/05/2016 None pre-op/surgery consult Pertinent Findings Denies fever 08/05/2016 None pre-op/surgery consult Pertinent Findings pain 08/05/2016 None lower leg pain Location on the right 07/22/2016 None lower leg pain Quality i mproving 07/22/2016 None lower leg pain Pertinent Findings Denies decreased range of motion 07/22/2016 None lower leg pain Pertinent Findings Denies instability 07/22/2016 None lower leg pain Pertinent Findings Denies numbness 07/22/2016 None lower leg pain Pertinent Findings Denies pain with movement 07/22/2016 None lower leg pain Pertinent Findings redness 07/22/2016 None lower leg pain Pertinent Findings Denies sensation of buckling 07/22/2016 None lower leg pain Pertinent Findings Denies stiffness 07/22/2016 None lower leg pain Pertinent Findings Denies swelling 07/22/2016 None lower leg pain Onset and Resolution resolved 07/22/2016 None depression Quality chron ic 03/06/2016 None depression Onset and Resolution ongoing 03/06/2016 None depression Onset of Symptom _ years ago 03/06/2016 None depression Limitation on Activities moderately limits activities 03/06/2016 None depression Frequency of Episodes daily 03/06/2016 None depression Significant Medical Conditions anxiety disorder 03/06/2016 None depression Triggers no k nown associated factors 03/06/2016 None depression Alleviating Factors medication 03/06/2016 None depression Pertinent Findings anxiety 03/06/2016 None depression Pertinent Findings depressed mood 03/06/2016 None depression Onset and Resolution ongoing 12/07/2015 None depression Limitation on Activities moderately limits activities 12/07/2015 None depression Frequency of Episodes daily 12/07/2015 None depression Triggers no k nown associated factors 12/07/2015 None depression Pertinent Findings anxiety 12/07/2015 None depression Pertinent Findings depressed mood 12/07/2015 None Weight follow up Onset and Resolution ongoing 12/07/2015 None depression Quality chron ic 12/07/2015 None depression Onset of Symptom _ years ago 12/07/2015 None depression Significant Medical Conditions anxiety disorder 12/07/2015 None depression Alleviating Factors medication 12/07/2015 None depression Onset and Resolution ongoing 11/09/2015 None depression Limitation on Activities moderately limits activities 11/09/2015 None depression Frequency of Episodes daily 11/09/2015 None depression Triggers no k nown associated factors 11/09/2015 None depression Pertinent Findings anxiety 11/09/2015 None depression Pertinent Findings depressed mood 11/09/2015 None dysuria Quality improving 08/17/2015 None dysuria Onset and Resolution ongoing 08/17/2015 None dysuria Onset of Symptom 1 weeks ago 08/17/2015 None dysuria Pertinent Findings back pain 08/17/2015 None dysuria Pertinent Findings Denies bladder pain 08/17/2015 None dysuria Pertinent Findings Denies fever 08/17/2015 None dysuria Pertinent Findings pelvic pain 08/17/2015 None dysuria Limitation on Activities does not limit urination 08/17/2015 None dysuria Frequency of Episodes increasing 08/17/2015 None dysuria Triggers no know n associated factors 08/17/2015 None depression Quality inter mittent 07/24/2015 None depression Onset and Resolution ongoing 07/24/2015 None depression Frequency of Episodes daily 07/24/2015 None depression Pertinent Findings anxiety 07/24/2015 None depression Pertinent Findings depressed mood 07/24/2015 None depression Pertinent Findings Denies helplessness 07/24/2015 None depression Limitation on Activities moderately limits activities 07/24/2015 None depression Triggers no k nown associated factors 07/24/2015 None pain Location-Major in a generalized area 07/16/2015 None pain Onset of Symptom 1 days ago 07/16/2015 None pain Pertinent Findings pain 07/16/2015 None pain Pertinent Findings muscle pain 07/16/2015 None pain Quality acute 07/16/2015 None pain Onset and Resolution ongoing 07/16/2015 None pain Limitation on Activities moderately limits activities 07/16/2015 None pain Severity moderate 07/16/2015 None pain Prior Treatments pr eviously untreated 07/16/2015 None neck pain Location in th e cervical spine 06/12/2015 None neck pain Quality consta nt 06/12/2015 None neck pain Onset and Resolution ongoing 06/12/2015 None neck pain Frequency of Episodes hourly 06/12/2015 None neck pain Frequency of Episodes daily 06/12/2015 None neck pain Pertinent Findings extremity numbness 06/12/2015 None neck pain Pertinent Findings extremity weakness 06/12/2015 None neck pain Pertinent Findings shoulder weakness 06/12/2015 None neck pain Limitation on Activities moderately limits activities 06/12/2015 None neck pain Significant Medical Conditions spinal stenosis 06/12/2015 None neck pain Triggers activ ity 06/12/2015 None neck pain Exacerbating Factors activity 06/12/2015 None neck pain Initial treatment medication 06/12/2015 None neck pain Mechanism of injury unknown 06/12/2015 None neck pain Radiating down both arms 06/12/2015 None neck pain Severity moder ate 06/12/2015 None hip pain Quality sharp p ain 03/08/2015 None hip pain Quality constant 03/08/2015 None hip pain Location in the lateral region 03/08/2015 None hip pain Onset and Resolution gradual in onset 03/08/2015 None hip pain Onset of Symptom 2 months ago 03/08/2015 None hip pain Frequency of Episodes daily 03/08/2015 None hip pain Radiating radia melinda down the leg to the foot 03/08/2015 None hip pain Pertinent Findings pain at rest 03/08/2015 None hip pain Pertinent Findings pain with movement 03/08/2015 None low back and leg pain Location on both sides 03/08/2015 None low back and leg pain Quality stabbing 03/08/2015 None low back and leg pain Onset of Symptom 2 months ago 03/08/2015 None low back and leg pain Onset and Resolution gradual in onset 03/08/2015 None low back and leg pain Onset and Resolution worse at night 03/08/2015 None low back and leg pain Onset and Resolution nighttime pain 03/08/2015 None menopausal symptoms Quality acute 12/29/2014 None menopausal symptoms Onset and Resolution sudden in onset 12/29/2014 None menopausal symptoms Onset of Symptom 2 weeks ago 12/29/2014 None menopausal symptoms Triggers no known associated factors 12/29/2014 None menopausal symptoms Pertinent Findings Denies fever 12/29/2014 None menopausal symptoms Pertinent Findings Denies nausea 12/29/2014 None menopausal symptoms Pertinent Findings Denies lightheadedness 12/29/2014 None menopausal symptoms Pertinent Findings Denies edema 12/29/2014 None menopausal symptoms Pertinent Findings Denies nocturia 12/29/2014 None menopausal symptoms Pertinent Findings Denies pelvic pain 12/29/2014 None menopausal symptoms Pertinent Findings Denies urinary urgency 12/29/2014 None menopausal symptoms Pertinent Findings Denies depressed mood 12/29/2014 None flushing Location on the chest 12/29/2014 None flushing Location on the face 12/29/2014 None flushing Location on the neck 12/29/2014 None flushing Quality acute 12/29/2014 None flushing Quality intermi ttent 12/29/2014 None flushing Onset of Symptom 2 weeks ago 12/29/2014 None flushing Limitation on Activities does not limit activities 12/29/2014 None flushing Length of Episodes a few minutes 12/29/2014 None flushing Pertinent Findings Denies fever 12/29/2014 None flushing Pertinent Findings Denies palpitations 12/29/2014 None flushing Pertinent Findings perspiration 12/29/2014 None flushing Pertinent Findings tachycardia 12/29/2014 None anxiety Quality agitation 11/17/2014 None anxiety Quality constant 11/17/2014 None anxiety Onset and Resolution ongoing 11/17/2014 None anxiety Onset of Symptom during adulthood 11/17/2014 None anxiety Triggers stress 11/17/2014 None anxiety Triggers family discord 11/17/2014 None fatigue Limitation on Activities moderately limits activities 11/17/2014 None fatigue Frequency of Episodes daily 11/17/2014 None hypertension Onset and Resolution ongoing 11/17/2014 None hypertension Onset of Symptom during adulthood 11/17/2014 None hypertension Quality chr onic 11/17/2014 None hypertension Severity no t consistently severe symptoms, the symptoms fluctuate from no symptoms to anxiety and headaches 11/17/2014 None hypertension Frequency of Episodes unchanged 11/17/2014 None hypertension Significant Family History heart disease 11/17/[address] ress 11/17/2014 None hypertension Pertinent Findings Denies dyspnea 11/17/2014 None hypertension Pertinent Findings Denies edema 11/17/2014 None hypertension Pertinent Findings Denies dizziness 11/17/2014 None hypertension Pertinent Findings decreased energy 11/17/2014 None blood pressure followup Quality acute 05/16/2014 None blood pressure followup Onset and Re solution ongoing 05/16/2014 None blood pressure followup Onset of Symptom during adulthood 05/16/2014 None blood pressure followup Blood Pressu re Values not checking blood pressure at home 05/16/2014 None blood pressure followup Severity mild 05/16/2014 None blood pressure followup Frequency of Episodes unchanged 05/16/2014 Non e blood pressure followup Triggers stress 05/16/2014 None blood pressure followup Alleviating Factor s medication 05/16/2014 None blood pressure followup Exacerbating Factors stress 05/16/2014 None blood pressure followup Pertinent Findings decreased energy 05/16/2014 None blood pressure followup Pertinent Findings Denies dizziness 05/16/2014 None blood pressure followup Pertinent Findings Denies edema 05/16/2014 None blood pressure followup Pertinent Findings Denies nausea 05/16/2014 None blood pressure followup Pertinent Findings Denies vomiting 05/16/2014 None blood pressure followup Quality acute 04/04/2014 None blood pressure followup Onset and Re solution ongoing 04/04/2014 None blood pressure followup Onset of Symptom during adulthood 04/04/2014 None blood pressure followup Frequency of Episodes unchanged 04/04/2014 Non e blood pressure followup Triggers stress 04/04/2014 None blood pressure followup Alleviating Factor s medication 04/04/2014 None blood pressure followup Blood Pressu re Values not checking blood pressure at home 04/04/2014 None blood pressure followup Pertinent Findings decreased energy 04/04/2014 None blood pressure followup Pertinent Findings Denies dizziness 04/04/2014 None blood pressure followup Pertinent Findings Denies edema 04/04/2014 None blood pressure followup Pertinent Findings Denies nausea 04/04/2014 None blood pressure followup Pertinent Findings Denies vomiting 04/04/2014 None blood pressure followup Severity mild 04/04/2014 None blood pressure followup Exacerbating Factors stress 04/04/2014 None abdominal pain Location in the periumbilical area 12/01/2013 None abdominal pain Quality c onstant 12/01/2013 None abdominal pain Quality s harp 12/01/2013 None abdominal pain Onset of Symptom 1 weeks ago 12/01/2013 None abdominal pain Triggers meals 12/01/2013 eating makes it hurt wors e abdominal pain Pertinent Findings Denies bloating 12/01/2013 None abdominal pain Pertinent Findings Denies heartburn 12/01/2013 None abdominal pain Pertinent Findings Denies increased appetite 12/01/2013 None abdominal pain Pertinent Findings melena 12/01/2013 not visible abdominal pain Pertinent Findings Denies vomiting 12/01/2013 None diarrhea Quality loose 12/01/2013 None diarrhea Quality watery 12/01/2013 None diarrhea Onset of Symptom 2 weeks ago 12/01/2013 None diarrhea Frequency of Episodes 6-8 stools per day 12/01/2013 None diarrhea Length of Episodes 2 weeks 12/01/2013 None diarrhea Triggers meals 12/01/2013 None diarrhea Pertinent Findings Denies abdominal distension 12/01/2013 None diarrhea Pertinent Findings Denies cramping 12/01/2013 None diarrhea Pertinent Findings Denies nausea 12/01/2013 None diarrhea Pertinent Findings Denies bloating 12/01/2013 None diarrhea Onset and Resolution ongoing 12/01/2013 None abdominal pain Onset and Resolution ongoing 12/01/2013 None abdominal pain Limitation on Activities moderately limits activities 12/01/2013 None abdominal pain Frequency of Episodes unchanged 12/01/2013 None abdominal pain Exacerbating Factors eating 12/01/2013 None abdominal pain Pertinent Findings dyspepsia 12/01/2013 None abdominal pain Pertinent Findings Denies dyspnea 12/01/2013 None abdominal pain Pertinent Findings Denies emesis 12/01/2013 None abdominal pain Pertinent Findings Denies fever 12/01/2013 None abnormal test results Detailed Test Result(s) vitamin D deficiency 10/10/2013 None abnormal test results Abnormal Indicator _ 10/10/2013 None abnormal test results Additional Comments repeat vitamin d level was only 20 points higher than prior to treatment with vitamin D. 10/10/2013 None abnormal test results Pertinent Findings Denies chill 10/10/2013 None abnormal test results Pertinent Findings Denies edema 10/10/2013 None abnormal test results Pertinent Findings Denies fever 10/10/2013 None abnormal test results Pertinent Findings Denies urinary urgency 10/10/2013 None abnormal test results Pertinent Findings Denies weight loss 10/10/2013 None abnormal test results Repeated Abnor mal Results 1 10/10/2013 None well woman exam (40-65 years) Pap Smear last normal performed on __-__-__ 09/15/2013 last pap in 20s, hysterectomy at age 25 well woman exam (40-65 years) Lifestyle normal sleep patterns 09/15/2013 None well woman exam (40-65 years) Contro l hysterectomy 09/15/2013 None well woman exam (40-65 years) Nutrit ion and Exercise overweight 09/15/2013 No ne well woman exam (40-65 years) Cardio vascular Risk Factors diabetes mellitus 09/15/2013 None well woman exam (40-65 years) Cardio vascular Risk Factors obesity 09/15/2013 None well woman exam (40-65 years) Health Guidance baseline mammogram 09/15/2013 None well woman exam (40-65 years) Sexual Activity experiences sexual satisfaction 09/15/2013 None well woman exam (40-65 years) Sexual Activity is monogamous 09/15/2013 None diabetes mellitus Quality non-insulin dependent 08/16/2013 None diabetes mellitus Test results Pt checking blood glucose readings, did not bring results to clinic 08/16/2013 None fatigue Quality acute 08/16/2013 None fatigue Onset and Resolution ongoing 08/16/2013 None diabetes mellitus Test results fasting glucose 115-140 08/16/2013 None diabetes mellitus Blood glucose levels greater than 120 08/16/2013 None diabetes mellitus Glucose monitoring daily 08/16/2013 None diabetes mellitus Alleviating Factors medication 08/16/2013 None diabetes mellitus Alleviating Factors diet 08/16/2013 None diabetes mellitus Nutrition ADA diet 08/16/2013 None diabetes mellitus Exercise minimal exercise 08/16/2013 None fatigue Limitation on Activities moderately limits activities 08/16/2013 None fatigue Frequency of Episodes increasing 08/16/2013 None fatigue Triggers stress 08/16/2013 None fatigue Exacerbating Factors stress 08/16/2013 None fatigue Pertinent Findings Denies depressed mood 08/16/2013 None fatigue Pertinent Findings Denies dyspnea 08/16/2013 None fatigue Pertinent Findings Denies fever 08/16/2013 None fatigue Pertinent Findings insomnia 08/16/2013 None fatigue Pertinent Findings Denies palpitations 08/16/2013 None fatigue Pertinent Findings Denies syncope 08/16/2013 None diabetes mellitus Quality non-insulin dependent 06/06/2013 metformin was increased. does not have a glucometer to check blood sugar diabetes mellitus Onset of Symptom onset as an adult 06/06/2013 None diabetes mellitus Severity mild 06/06/2013 None diabetes mellitus Exercise no exercise 06/06/2013 None diabetes mellitus Pertinent Findings Denies lethargy 06/06/2013 None diabetes mellitus Pertinent Findings Denies nausea 06/06/2013 None diabetes mellitus Blood glucose levels between 60 and 120 06/06/2013 None diabetes mellitus Glucose monitoring does not test 06/06/2013 None diabetes mellitus Quality non-insulin dependent 04/26/2013 new onset diabetes mellitus Severity mild 04/26/2013 None diabetes mellitus Test results HgbA1c level 6.5 04/26/2013 None diabetes mellitus Glucose monitoring does not test 04/26/2013 None diabetes mellitus Nutrition regular diet 04/26/2013 None diabetes mellitus Exercise no exercise 04/26/2013 None diabetes mellitus Onset of Symptom onset as an adult 04/26/2013 None diabetes mellitus Pertinent Findings Denies dizziness 04/26/2013 None diabetes mellitus Pertinent Findings Denies increased hunger 04/26/2013 None diabetes mellitus Pertinent Findings Denies fruity breath 04/26/2013 None diabetes mellitus Pertinent Findings Denies dyspnea 04/26/2013 None diabetes mellitus Pertinent Findings Denies nocturia 04/26/2013 None diabetes mellitus Pertinent Findings Denies weight loss 04/26/2013 None disturbances of emotion Quality chronic 04/14/2013 None disturbances of emotion Onset and Re solution ongoing 04/14/2013 state s had hysterectomy age 25. took estrogen for 1 year and then was taken off of it due to cancer risks. disturbances of emotion Pertinent Findings irritability 04/14/2013 states one day she's fine and next day she's not disturbances of emotion Triggers stress 04/14/2013 states she has taken paxi l in past but it didn't help disturbances of emotion Limitation o n Activities does not limit activities 04/14/2013 None disturbances of emotion Significant Medical Conditions depression 04/14/2013 No ne Advance Directives No Advance Directive data Encounters Encounter Performer Loca tion Codes Date ( [id number] EST. P ATIENT, LEVEL IV Diagnosis: Essential (primary) hypertension[ICD10: I10] Diagnosis: Cervicalgia[ICD10: M54.2] Diagnosis: Major depressive disorder, recurrent, moderate[ICD10: F33.1] [facility] CPT-4: 51190 11/15/2018 ([id number] 14778 EST. [facility] Diagnosis: Essential (primary) hypertension[ICD10: I10] Diagnosis: Type 2 diabetes mellitus with hyperglycemia[ICD10: E11.65] Diagnosis: Cervicalgia[ICD10: M54.2] Diagnosis: Low back pain[ICD10: M54.5] [facility] CPT- 4: 02305 10/14/2018 ([id number]) Miscellaneou s no charge Diagnosis: Insect bite (nonvenomous), left lower leg, subsequent encounter[ICD10: S80.862D] [facility] CPT-4: 85203 04/22/2018 ([id number]) 48238 EST. P ATIENT, LEVEL III Diagnosis: Insect bite (nonvenomous), left lower leg, initial encounter[ICD10: S80.862A] Katy Manzanares MD, [facility] CPT-4: 21307 04/20/2018 06073 EST. PATIENT, LEVEL II Diagnosis: Dysuria[ICD10: R30.0] Diagnosis: Other specified conditions associated with female genital organs and menstrual cycle[ICD10: N94.89] Katy Manzanares MD, [facility] CPT-4: 29473 11/02/2017 ([id number]) 74875 EST. 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 P ATIENT, LEVEL III Diagnosis: Essential (primary) hypertension[ICD10: I10] Katy Manzanares MD, [facility] CPT-4: 87322 07/20/2017 ([id number]) 12183 EST. P ATIENT, LEVEL III Diagnosis: Essential (primary) hypertension[ICD10: I10] Katy Manzanares MD, [facility] CPT-4: 83104 06/09/2017 ([id number]) 18182 EST. 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 P ATIENT, LEVEL IV Diagnosis: Essential (primary) hypertension[ICD10: I10] Diagnosis: Type 2 diabetes mellitus without complications[ICD10: E11.9] Diagnosis: Vitamin D deficiency, unspecified[ICD10: E55.9] Diagnosis: Major depressive disorder, recurrent, moderate[ICD10: F33.1] Diagnosis: Generalized anxiety disorder[ICD10: F41.1] Diagnosis: Myalgia[ICD10: M79.1] Diagnosis: Elevated C-reactive protein (CRP)[ICD10: R79.82] Diagnosis: Pain in joints of left hand[ICD10: M25.542] Diagnosis: Pain in right hand[ICD10: M79.641] Diagnosis: Fever, unspecified[ICD10: R50.9] Katy Manzanares MD, [facility] CPT- 4: 98311 12/01/2016 ([id number]) 30203 EST. P ATIENT, LEVEL III Diagnosis: Impaired fasting glucose[ICD10: R73.01] Diagnosis: Low back pain[ICD10: M54.5] Diagnosis: Generalized anxiety disorder[ICD10: F41.1] Katy Manzanares MD, [facility] CPT-4: 26753 08/05/2016 ([id number]) 41602 EST. P ATIENT, LEVEL III Diagnosis: Essential (primary) hypertension[ICD10: I10] Diagnosis: Radiculopathy, lumbar region[ICD10: M54.16] Katy Manzanares MD, [facility] CPT-4: 27476 07/22/2016 ([id number]) Miscellaneou s no charge Diagnosis: Dysuria[ICD10: R30.0] Ally Manzanares MD, [facility] CPT-4: 05476 06/12/2016 ([id number]) 05699 EST. P ATIENT, LEVEL IV Diagnosis: Type 2 diabetes mellitus without complications[ICD10: E11.9] Diagnosis: Vitamin D deficiency, unspecified[ICD10: E55.9] Diagnosis: Generalized anxiety disorder[ICD10: F41.1] Diagnosis: Essential (primary) hypertension[ICD10: I10] Diagnosis: Radiculopathy, cervical region[ICD10: M54.12] Diagnosis: Cardiac murmur, unspecified[ICD10: R01.1] Katy Manzanares MD, [facility] CPT-4: 89571 03/06/2016 ([id number]) 83556 EST. P ATIENT, LEVEL III Diagnosis: Generalized anxiety disorder[ICD10: F41.1] Diagnosis: Major depressive disorder, recurrent, in partial remission[ICD10: F33.41] Katy Manzanares MD, [facility] CPT-4: 38481 12/07/2015 ([id number]) 19755 EST. P ATIENT, LEVEL IV Diagnosis: Essential (primary) hypertension[ICD10: I10] Diagnosis: Generalized anxiety disorder[ICD10: F41.1] Diagnosis: Other obesity due to excess calories[ICD10: E66.09] Katy Manzanares MD, [facility] CPT-4: 82176 11/09/2015 ([id number]) 23396 EST. P ATIENT, LEVEL III Diagnosis: Urinary tract infection, site not specified[ICD10: N39.0] Katy Manzanares MD, [facility] CPT-4: 28706 08/17/2015 ([id number]) 66179 EST. P ATIENT, LEVEL III Diagnosis: Generalized anxiety disorder[ICD10: F41.1] Diagnosis: Major depressive disorder, recurrent, moderate[ICD10: F33.1] Katy Manzanares MD, [facility] CPT-4: 20131 07/24/2015 ([id number]) 96152 EST. P ATIENT, LEVEL IV Diagnosis: Myalgia[ICD10: M79.1] Diagnosis: Low back pain[ICD10: M54.5] Diagnosis: Cervicalgia[ICD10: M54.2] Diagnosis: Essential (primary) hypertension[ICD10: I10] Diagnosis: Vitamin D deficiency, unspecified[ICD10: E55.9] Diagnosis: Generalized anxiety disorder[ICD10: F41.1] Katy Manzanares MD, [facility] CPT-4: 08345 07/16/2015 ([id number]) 05993 EST. P ATIENT, LEVEL IV Diagnosis: Cervicalgia[ICD10: M54.2] Diagnosis: Essential (primary) hypertension[ICD10: I10] Diagnosis: Low back pain[ICD10: M54.5] Diagnosis: Radiculopathy, cervical region[ICD10: M54.12] Katy Manzanares MD, [facility] CPT-4: 72483 06/12/2015 50431 EST. PATIENT, LEVEL III Diagnosis: Sacroiliitis, not elsewhere classified[ICD10: M46.1] Diagnosis: Low back pain[ICD10: M54.5] Diagnosis: Pain in left hip[ICD10: M25.552] Diagnosis: Pain in right hip[ICD10: M25.551] Samantha Manzanares MD, [facility] CPT-4: 21782 03/08/2015 08910 EST. PATIENT, LEVEL III Diagnosis: Anxiety disorder due to known physiological condition[ICD10: F06.4] Diagnosis: Mood disorder due to known physiological condition with depressive features[ICD10: F06.31] Diagnosis: Flushing[ICD10: R23.2] Samantha Manzanares MD, [facility] CPT-4: 03654 12/29/2014 ([id number]) 42613 EST. P ATIENT, LEVEL IV Diagnosis: ESSENTIAL HYPERTENSION[ICD9: 401.9] Diagnosis: Anxiety[ICD9: 300.00] Diagnosis: Depression[ICD9: 311] Katy Manzanares MD, [facility] CPT-4: 38840 11/17/2014 ([id number]) 13630 EST. P ATIENT, LEVEL IV Diagnosis: Anxiety[ICD9: 300.00] Diagnosis: Depression[ICD9: 311] Diagnosis: DIABETES TYPE II[ICD9: 250.00] Diagnosis: Vitamin D deficiency[ICD9: 268.9] Diagnosis: ESSENTIAL HYPERTENSION[ICD9: 401.9] Diagnosis: ABNORMAL WEIGHT GAIN[ICD9: 783.1] Katy Manzanares MD, [facility] CPT- 4: 01184 05/16/2014 ([id number]) 08952 EST. P ATIENT, LEVEL IV Diagnosis: ESSENTIAL HYPERTENSION[ICD9: 401.9] Diagnosis: Anxiety[ICD9: 300.00] Diagnosis: Depression[ICD9: 311] Katy Manzanares MD, [facility] CPT-4: 28379 04/04/2014 ([id number]) 57614 EST. P ATIENT, LEVEL IV Diagnosis: Diarrhea[ICD9: 787.91] Diagnosis: Epigastric pain[ICD9: 789.06] Diagnosis: ESOPHAGEAL REFLUX[ICD9: 530.81] Diagnosis: Blood in stool[ICD9: 578.1] Katy Manzanares MD, [facility] CPT- 4: 22920 12/01/2013 ([id number]) 54079 EST. P ATIENT, LEVEL IV Diagnosis: Vitamin D deficiency[ICD9: 268.9] Diagnosis: DIABETES TYPE II[ICD9: 250.00] Diagnosis: Depression[ICD9: 311] Diagnosis: Insomnia[ICD9: 780.52] Ally Manzanares MD, [facility] CPT-4: 06846 10/10/2013 ([id number]) PREV VISIT E ST AGE 40-64 Diagnosis: Well woman exam with routine gynecological exam[ICD9: V72.31] Diagnosis: JOINT PAIN-UNSPEC[ICD9: 719.40] Diagnosis: Nasal septal ulcer[ICD9: 478.19] Diagnosis: Swelling of extremity[ICD9: 729.81] Diagnosis: Pleuritic chest pain[ICD9: 786.52] Katy Manzanares MD, [facility] CPT-4: 96540 09/15/2013 ([id number]) 06729 EST. P ATIENT, LEVEL IV Diagnosis: DM W/O COMPLICATION TYPE II, UNCONTROLLED[SNOMED: 02450375] Diagnosis: Urinary tract infection[ICD9: 599.0] Diagnosis: DEPRESSIVE DISORDER NEC[ICD9: 311] Diagnosis: Anxiety[ICD9: 300.00] Diagnosis: Insomnia[ICD9: 780.52] Diagnosis: ANEMIA[ICD9: 285.9] Katy Manzanares MD, [facility] CPT-4: 76381 08/16/2013 ([id number]) 42726 EST. P ATIENT, LEVEL III Diagnosis: DM w/o complication type II, uncontrolled[SNOMED: 41292122] Ally Manzanares MD, [facility] CPT-4: 99442 06/06/2013 ([id number]) 74964 EST. P ATIENT, LEVEL III Diagnosis: DIABETES TYPE II[SNOMED: 007442671] [facility] CPT- 4: 45102 04/26/2013 ([id number]) OFFICE VISI T, NEW - LEVEL 4 Diagnosis: Elevated blood pressure[ICD9: 796.2] Diagnosis: Depression[ICD9: 311] Diagnosis: Elevated alkaline phosphatase level[ICD9: 790.5] Diagnosis: Elevated glucose[ICD9: 790.29] [facility] CPT-4: 87174 04/14/2013 Plan of Care Planned Activity Notes C odes Status Date Visit Plan: Hypertension - uncontro lled - the patient's medications have been modified as documented in the visit note. The patient has been counseled to cut back on salt in diet for a no added salt diet, low fat d iet, start an exercise program with low weight bearing exercises and higher aerobic activity for heart health. The patient is to check blood pressure readings as an outpatient and either fax, call, or email the readings to the office next week for practitioner to review. The pt is to call for acute concerns. Depression - uncontrolled - Pt has been counseled about the diagnosis of depression, the potential causes, and risks associated with the diagnosis. The pt denies suicidal ideation, or plans. The patient has been counseled about treatment options, and understands the risks associated with treatment of depression, as well as the risks associated with NOT treating the depression. I believe the pt will benefit from medical intervention and an antidepressant has been appropriately prescribed for this patient. Cervical stenosis -bulging disc- appt with Dr Samuels 11/15/2018 Appointment: Katy Do WPtel: [address] [place], [place] [phone] (30 min) Complex 11/15/2018 Patient Education: Patient Medication Summary Completed 11/15/2018 Patient Education: Hypertension Completed 11/15/2018 Patient Education: .Cervicalgia Neck Pain Completed 11/15/2018 Patient Education: Depression Completed 11/15/2018 Visit Plan: Hypertension - well con trolled - continue with current medications, continue with no added salt diet. Pt has been encouraged to exercise daily. The pt has been advised to call the office if there are any acute concerns about change in blood pressure readings at home. DM-no recent labs -check today Neck pain and back pain-spinal stenosis -schedule MRI neck - refer to Dr Samuels as indicated- start lyrica for radiculopathy 10/14/2018 Appointment: Katy Do WPtel: [phone] [place] (15 min) Moderate 10/14/2018 Patient Education: Patient Medication Summary Completed 10/14/2018 Patient Education: Patient Medication Summary Completed 10/14/2018 Patient Education: Hypertension Completed 10/14/2018 Patient Education: Diabetes Completed 10/14/2018 Patient Education: .Cervicalgia Neck Pain Completed 10/14/2018 Patient Education: Back Pain Completed 10/14/2018 Care Plan: Iron add to blood from 10/14 Pending 10/14/2018 Care Plan: Ferritin add to blood from 10/14 Pending 10/14/2018 Care Plan: Tibc add to blood from 10/14 Pending 10/14/2018 Care Plan: B12 add to blood from 10/14 Pending 10/14/2018 Visit Plan: Spdier bite -much impro itzel-return next Thursday for follow up -continue wound care as directed 04/22/2018 Appointment: Katy Do WPtel: [address] [place], [place] [phone] (30 min) Complex 04/22/2018 Patient Education: Patient Medication Summary Completed 04/22/2018 Visit Plan: Cellulitis - start oral antibiotics as directed, return to clinic for wound check, call for acute change in symptoms, worsening redness, warmth, discharge. 04/20/2018 Appointment: Katy Do WPtel: [phone] (10 min) Simple 04/20/2018 Patient Education: Patient Medication Summary Completed 04/20/2018 Visit Plan: Erythema of labia- dysu vonda -UA negative-yeast infection vs vulvar lichen sclerosis -rx sent to patient's pharmacy and instructed on use -call if symptoms do not resolve of if any worse. Patient verbalized understanding of plan. 11/02/2017 Appointment: Katy Do WPtel: [phone] (15 min) Moderate 11/02/2017 Patient Education: Patient Medication Summary Completed 11/02/2017 Visit Plan: Hypertension - well con trolled - continue with current medications, continue with no added salt diet. Pt has been encouraged to exercise daily. The pt has been advised to call the office if there are any acute concerns about change in blood pressure readings at home. Diabetes Mellitus - I have recommended for the patient to have follow up labs prior to the next office visit. The patient has been instructed to continue with current medications as previously directed, continue with regular FSBS monitoring to assure continued control of diabetes. Pt to call for any acute concerns, complaints, or if the blood glucose readings are starting to become less controlled. Iron def anemia-check labs Chronic Depression and anxiety - the pt has symptoms of chronic anxiety and depression that have been fairly well controlled since the last office visit. The pt has expected periods of exacerbation with abatement of the symptoms with change in situational exposure. No change in current medications. 10/13/2017 Appointment: Katy Do WPtel: [address] [place] [address] (30 min) Complex 10/13/2017 Patient Education: Patient Medication Summary Completed 10/13/2017 Appointment: Katy Do WPtel: [address] [place] [address] (15 min) Moderate 08/20/2017 Visit Plan: Hypertension - well con trolled but bystolic is not covered-will switch to metoprolol- continue other medications, continue with no added salt diet. Pt has been encouraged to exercise daily. The pt has been advised to call the office if there are any acute concerns about change in blood pressure readings at home. 07/20/2017 Appointment: Katy Do WPtel: [address] [place] [address] (15 min) Moderate 07/20/2017 Patient Education: Patient Medication Summary Completed 07/20/2017 Appointment: Katy Do WPtel: [address] [place] [address] (15 min) Moderate 07/14/2017 Visit Plan: Hypertension - uncontro lled - the patient's medications have been modified as documented in the visit note. The patient has been counseled to cut back on salt in diet for a no added salt diet, low fat d iet, start an exercise program with low weight bearing exercises and higher aerobic activity for heart health. The patient is to check blood pressure readings as an outpatient and either fax, call, or email the readings to the office next week for practitioner to review. The pt is to call for acute concerns. 06/09/2017 Patient Education: Patient Medication Summary Completed 06/09/2017 Visit Plan: Hypertension - well con trolled - continue with current medications, continue with no added salt diet. Pt has been encouraged to exercise daily. The pt has been advised to call the office if there are any acute concerns about change in blood pressure readings at home. DM-diet controlled-check labs Chronic Depression and anxiety - the pt has symptoms of chronic anxiety and depression that have been fairly well controlled since the last office visit. The pt has expected periods of exacerbation with abatement of the symptoms with change in situational exposure. No change in current medications. CONTINUE THERAPY -NO CHANGE IN MEDICATIONS TODAY BUT CHECK LABS - CONSIDER SWITCHING WELLBUTRIN IF SYMPTOMS UNCONTROLLED Vitamin D def-check labs- conitnue oral replacement Iron def anemia-check cbc-continue iron supplement 05/12/2017 Appointment: Katy Do WPtel: [address] [place], [place] [phone] (30 min) [facility] 05/12/2017 Patient Education: Patient Medication Summary Completed 05/12/2017 Patient Education: Patient Medication Summary Completed 05/12/2017 Care Plan: SCREENINGMAMMOGRAPHYDIGITAL LOINC : 16450-1 Pending 05/12/2017 Appointment: Lab Draw 12/08/2016 Patient Education: Patient Medication Summary Completed 12/08/2016 Patient Education: Patient Medication Summary Completed 12/02/2016 Care Plan: Iron And Tibc Pending 12/02/2016 Visit Plan: Hypertension - well con trolled - continue with current medications, continue with no added salt diet. Pt has been encouraged to exercise daily. The pt has been advised to call the office if there are any acute concerns about change in blood pressure readings at home. Chronic Depression and anxiety - the pt has symptoms of chronic anxiety and depression that have not been well controlled since the last office visit. The pt has expected periods of exacerbation with abatement of the symptoms with change in situational exposure. Plan to increase wellbutrin as directed DM-check Hgb A1C Vitamin d def-check labs Joint pain-swelling in hands-intermittent fevers-check inflammatory labs including tick panel 12/01/2016 Appointment: Katy Do WPtel: [address] [place], [place] [phone] (30 min) Complex 12/01/2016 Patient Education: Patient Medication Summary Completed 12/01/2016 Patient Education: Obesity Completed 12/01/2016 Care Plan: Lymes Disease Antibobies Igg/ Igm Pending 12/01/2016 Visit Plan: Elevated glucose-check Hgb A1C Low back pain-will write letter on patient's behalf for insurance precertification [id number] controlled-no changes 08/05/2016 Appointment: Katy Do WPtel: [address] [place], [place] [phone] [place] [address] (30 min) Complex 08/05/2016 Patient Education: Patient Medication Summary Completed 08/05/2016 Visit Plan: Hypertension - well con trolled - continue with current medications, continue with no added salt diet. Pt has been encouraged to exercise daily. The pt has been advised to call the office if there are any acute concerns about change in blood pressure readings at home. Lumbar radiculopathy-Dr Samuels to do surgery next month. 07/22/2016 Appointment: Katy Do WPtel: [address] [place], [place] [phone] [place] [address] (15 min) Moderate 07/22/2016 Patient Education: Patient Medication Summary Completed 07/22/2016 Patient Education: Obesity Completed 07/22/2016 Appointment: Lab Draw 06/12/2016 Patient Education: Patient Medication Summary Completed 06/12/2016 Patient Education: Patient Medication Summary Completed 03/07/2016 Visit Plan: Hypertension - well con trolled - continue with current medications, continue with no added salt diet. Pt has been encouraged to exercise daily. The pt has been advised to call the office if there are any acute concerns about change in blood pressure readings at home. DM-check Hgb A1C Vitamin D deficiency-joint pains-check labs Heart murmur-schedule Echo 03/06/2016 Appointment: Katy Do WPtel: [address] [place], [place] [phone] (30 min) Complex 03/06/2016 Patient Education: Patient Medication Summary Completed 03/06/2016 Patient Education: Hypertension Completed 03/06/2016 Visit Plan: Chronic Depression and anxiety - the pt has symptoms of chronic anxiety and depression that have been fairly well controlled since the last office visit. The pt has expected periods of exacerbation with abatement of the symptoms with change in situational exposure. No change in current medications. 12/07/2015 Appointment: Katy Do WPtel: [phone] (30 min) Complex 12/07/2015 Patient Education: Patient Medication Summary Completed 12/07/2015 Patient Education: Obesity Completed 12/07/2015 Visit Plan: Hypertension - well con trolled - continue with current medications, continue with no added salt diet. Pt has been encouraged to exercise daily. The pt has been advised to call the office if there are any acute concerns about change in blood pressure readings at home. Anxiety - the patient has uncontrolled anxiety and will benefit from an SSRI on a daily basis to attempt control of the symptoms of anxiety (tachycardia, overwhelming sensations, stress, insomnia, etc). Pt is aware of the risks and benefits of treatment with the above medications. Obesity - chronic issue with this patient. The pt has been counseled about diet changes, calorie restriction, and need to exercise. Pt will RTC in one month for weight check. 11/09/2015 Appointment: Katy Do WPtel: [phone] (30 min) Complex 11/09/2015 Patient Education: Patient Medication Summary Completed 11/09/2015 Patient Education: Obesity Completed 11/09/2015 Care Plan: BMI Above normal followup LOLI F-MGMT EDUC & TRAIN 1 PT Pending 11/09/2015 Appointment: Katy Do WPtel: [address] [place], [place] [phone] (30 min) Complex 11/08/2015 Appointment: Katy Do WPtel: [address] [place], [place] [phone] [place] (15 min) Moderate 08/23/2015 Visit Plan: Urinary Tract Infection -discussed natural and expected course of this diagnosis and to alert me if symptoms do not follow expected course, or if any worse. UA positive for infection today in the office- plan to send for culture and will call patient with results. RX sent to patient's pharmacy. Avoid tub baths, restrictive underwear, etc. Recommend patient start on probiotic while taking the antibiotic to prevent diarrhea. Patient verbalized understanding of plan. 08/17/2015 Patient Education: Patient Medication Summary Completed 08/17/2015 Patient Education: Obesity Completed 08/17/2015 Visit Plan: Anxiety-depression - th e patient has uncontrolled anxiety and will benefit from an SSRI on a daily basis to attempt control of the symptoms of anxiety (tachycardia, overwhelming sensations, stress, insomnia, etc). Pt is aware of the risks and benefits of treatment with the above medications. Vitamin D deficiency-start vitamin D level 07/24/2015 Appointment: Katy Do WPtel: [phone] [place] (30 min) Complex 07/24/2015 Patient Education: Patient Medication Summary Completed 07/24/2015 Patient Education: Obesity Completed 07/24/2015 Visit Plan: Hypertension - well con trolled - continue with current medications, continue with no added salt diet. Pt has been encouraged to exercise daily. The pt has been advised to call the office if there are any acute concerns about change in blood pressure readings at home. Myalgias-check labs Anxiety-not well controlled-refer to Kym Coleman for counseling Vitamin D deficiency-check labs 07/16/2015 Patient Education: Patient Medication Summary Completed 07/16/2015 Patient Education: Hypertension Completed 07/16/2015 Patient Education: .Cervicalgia Neck Pain Completed 07/16/2015 Visit Plan: Hypertension - well con trolled - continue with current medications, continue with no added salt diet. Pt has been encouraged to exercise daily. The pt has been advised to call the office if there are any acute concerns about change in blood pressure readings at home. Neck xcea-[id number]-[id number] to Dr Mckee for evaluation-patient has been seen by Dr Samuels and he recommends pain management with Dr Yap which she is doing but isn't getting relief in symptoms-wants 2nd opinion and has seen Dr Mckee in the past and wants to go back to him. Will call for appt Low back pain-recommend patient consider PT for low back and neck pain-patient will consider-wants to see Dr Mckee for her neck first. 06/12/2015 Appointment: (30 min) Complex 06/12/2015 Patient Education: Patient Medication Summary Completed 06/12/2015 Patient Education: Obesity Completed 06/12/2015 Patient Education: .Cervicalgia Neck Pain Completed 06/12/2015 Patient Education: Hypertension Completed 06/12/2015 Visit Plan: Pt is currently wearing a boot on the right foot post op. Pt states her foot is doing well. Pt complains of back pain, SI joint pain. Pt also complains of a cough with intermittent shortness of breath. Low back pain- the patient was instructed in appropriate posture, need for weight loss to alleviate abdominal obesity that is worsening the patient's back pain.. The pt is to use prn antiinflammatories to manage acute pain. The patient is to call the office if the pain is worsening or does not improve. Sacroiliitis - back exercises discussed with the patient, pt to continue with anti-inflammatories. Pt is to call if the symptoms do not improve or if they worsen. Sciatica- exercises discussed with the patient, pt to continue with antiinflammatories. Pt is to call if the symptoms do not improve or if they worsen. 03/08/2015 Patient Education: Patient Medication Summary Completed 03/08/2015 Visit Plan: Hot flashes/flushing - Decrease fetzima to 20 mg daily. Hypertension - The patient has been counseled to cut back on salt in diet for a no added salt diet, low fat diet, start an exercise program with low weight bearing exercises and higher aerobic activity for heart health. The patient is to check blood pressure readings as an outpatient and either fax, call, or email the readings to the office next week for practitioner to review. The pt is to call for acute concerns. 12/29/2014 Appointment: (15 min) Moderate 12/29/2014 Patient Education: Patient Medication Summary Completed 12/29/2014 Visit Plan: Hypertension - uncontro lled - the patient's medications have been modified as documented in the visit note. The patient has been counseled to cut back on salt in diet for a no added salt diet, low fat d iet, start an exercise program with low weight bearing exercises and higher aerobic activity for heart health. The patient is to check blood pressure readings as an outpatient and either fax, call, or email the readings to the office next week for practitioner to review. The pt is to call for acute concerns. RESTART BLOOD PRESSURE MEDICATION Anxiety - the patient has uncontrolled anxiety and will benefit from an SSRI on a daily basis to attempt control of the symptoms of anxiety (tachycardia, overwhelming sensations, stress, insomnia, etc). I also believe that the patient will benefit from very low dose of prn benzodiazepine. Pt is aware of the risks and benefits of treatment with the above medications. RECOMMEND TAKING XANAX EARLIER IN THE EVENING. Depression - uncontrolled - Pt has been counseled about the diagnosis of depression, the potential causes, and risks associated with the diagnosis. The pt denies suicidal ideation, or plans. The patient has been counseled about treatment options, and understands the risks associated with treatment of depression, as well as the risks associated with NOT treating the depression. I believe the pt will benefit from medical intervention and an antidepressant has been appropriately prescribed for this patient. SAMPLES OF FETZIMA 11/17/2014 Appointment: (30 min) Complex 11/17/2014 Patient Education: Patient Medication Summary Completed 11/17/2014 Patient Education: Hypertension Completed 11/17/2014 Appointment: (15 min) Moderate 09/04/2014 Appointment: Katy Do WPtel: [phone] Follow up 07/07/2014 Visit Plan: Anxiety and depression - the patient has uncontrolled anxiety and will benefit from an SSRI on a daily basis to attempt control of the symptoms of anxiety (tachycardia, overwhelming sensations, stres s, insomnia, etc). Pt is aware of the risks and benefits of treatment with the above medications. DM-check Hgb A1C Vitamin D deficiency-stopped vitamin D-check level Hypertension - well controlled - continue with current medications, continue with no added salt diet. Pt has been encouraged to exercise daily. The pt has been advised to call the office if there are any acute concerns about change in blood pressure readings at home. Weight gain-plan to start contrave in the next month if able-follow up in 2 months for weight check 05/16/2014 Appointment: Follow up 05/16/2014 Patient Education: Patient Medication Summary Completed 05/16/2014 Patient Education: Hypertension Completed 05/16/2014 Appointment: Katy Do WPtel[facility] [address] [phone] Follow up 05/09/2014 Visit Plan: Hypertension - well con elined - continue with current medications, continue with no added salt diet. Pt has been encouraged to exercise daily. The pt has been advised to call the office if there are any acute concerns about change in blood pressure readings at home. Anxiety - the patient has uncontrolled anxiety and will benefit from an SSRI on a daily basis to attempt control of the symptoms of anxiety (tachycardia, overwhelming sensations, stress, insomnia, etc). I also believe that the patient will benefit from very low dose of prn benzodiazepine. Pt is aware of the risks and benefits of treatment with the above medications. Depression - uncontrolled - Pt has been counseled about the diagnosis of depression, the potential causes, and risks associated with the diagnosis. The pt denies suicidal ideation, or plans. The patient has been counseled about treatment options, and understands the risks associated with treatment of depression, as well as the risks associated with NOT treating the depression. I believe the pt will benefit from medical intervention and an antidepressant has been appropriately prescribed for this patient. 04/04/2014 Appointment: Katy Do WPtel: [phone] Follow up 04/04/2014 Patient Education: Patient Medication Summary Completed 04/04/2014 Appointment: Follow up 02/27/2014 Visit Plan: Diarrhea- recommended b land diet, low fat diet, start on probiotic, and rehydrate with gatorade-like product. Pt to call if feeling worse, diarrhea becomes bloody, or does not improve with above recomme ndations. Pt to call for acute worsening of stomach upset or stomach pain. HOLD METFORMIN. Esophageal Reflux -epigastric pain- the patient has been counseled against excessive intake of caffeine, spicy foods, peppermint, and cinnamon - all of which can exacerbate esophageal reflux. The patient is to take medications as prescribed and call the office if the symptoms are not improving. Continue carafate-add PPI. Stay off of ibuprofen. Refer to surgeon for evaluation and possible EGD. Blood in stool-check stook studies if diarrhea does not resolve 12/01/2013 Appointment: Sick 12/01/2013 Patient Education: Patient Medication Summary Completed 12/01/2013 Care Plan: Referral Order SNOMED-CT : [id number] Ordered 12/01/2013 Visit Plan: Diabetes Mellitus - leighton briceño - per recent FSBS reports. I have recommended for the patient to have follow up labs prior to the next office visit. The patient has been instructed to continue with current medications as previously directed, continue with regular FSBS monitoring to assure continued control of diabetes. Pt to call for any acute concerns, complaints, or if the blood glucose readings are starting to become less controlled. Vitamin D deficiency - pt to start on another 13 weeks of vitamin D, and also be on vitamin D 2000 units daily. Chronic Depression and anxiety - the pt has symptoms of chronic anxiety and depression that have been not optimally controlled since the last office visit. The pt has expected periods of exacerbation with abatement of the symptoms with change in situational exposure. Increase lexapro to 20mg daily, keep trazodone for PRN use for insomnia. 10/10/2013 Appointment: Ally Manzanares WPtel: [address] [place] [address] [place], [place] [phone] Follow up 10/10/2013 Patient Education: Patient Medication Summary Completed 10/10/2013 Appointment: Ally Manzanares WPtel: [address] [place] [address] [place], [place] [phone] Lab Draw 10/06/2013 Patient Education: Patient Medication Summary Completed 10/06/2013 Appointment: Ally Manzanares WPtel: [address] [place] [address] [place], [place] [phone] Follow up 10/04/2013 Visit Plan: Well Adult Female - exa m completed. Pap and breast exam completed. Pt will be called with results of her testing. She was advised to continue with yearly annual exams. Safe sex practices discussed marco kaufman office visit today. Call if any abnormal gynecologic issues during the next year, otherwise, RTC yearly or prn. Joint pain-pleuritic chest pain-swelling of fjkx-xyvjikn-qjwxjhe for autoimmune disease such as lupus-plan to check labs and proceed as indicated. Instructed patient we will call her with results of labs. 09/15/2013 Appointment: Katy Do WPtel: [address] [phone] [place] Pap Only 09/15/2013 Patient Education: Patient Medication Summary Completed 09/15/2013 Visit Plan: Diabetes Mellitus - Unc ontrolled - per recent FSBS reports. I have recommended for the patient to have follow up labs prior to the next office visit. The patient has been instructed to continue with current medications as previously directed, continue with regular FSBS monitoring to assure continued control of diabetes. Pt to call for any acute concerns, complaints, or if the blood glucose readings are starting to become less controlled. I have recommended for the patient to follow more strictly to the diabetic diet as discussed in clinic to allow for greater blood glucose control. UTI-finished abx-culture urine-start dilucan for yeast infection and we will call you wiht results of culture Insomnia - Pt has been advised to increase the light in the house during the day, and start dimming the lights during the evening hours. Pt has been advised to cut out caffiene after 5pm. Daytime napping worsens night time insomnia. START TRAZODONE AT HS-IF IT CONTROLS SYMPTOMS OF INSOMNIA, WE WILL WEAN OFF LEXAPRO. Anemia-check iron panel 08/16/2013 Appointment: Katy Do WPtel: [phone] Follow up 08/16/2013 Patient Education: Patient Medication Summary Completed 08/16/2013 Care Plan: C URINE RT Pending 08/16/2013 Appointment: Katy Do WPtel: [address] [place], [place] [phone] [place] Follow up 08/09/2013 Appointment: Ally Manzanares WPtel: [address] [place], [place] [id number] [place] Follow up 08/08/2013 Visit Plan: Diabetes Mellitus - new diagnosis- I have recommended for the patient to have follow up labs in 3 months. The patient has been instructed to start medications as directed. Pt to call for any acute emily rns, complaints, or if the blood glucose readings are starting to become less controlled. I have recommended for the patient to follow more strictly to the diabetic diet as discussed in clinic to allow for greater blood glucose control. 06/06/2013 Appointment: Ally Manzanares WPtel: [address] [place] [address] [place], [place] [phone] Follow up 06/06/2013 Patient Education: Patient Medication Summary Completed 06/06/2013 Appointment: Ally Manzanares WPtel: [address] [place] [address] [place], [place] [id number] Follow up 05/12/2013 Visit Plan: Diabetes Mellitus - new diagnosis- I have recommended for the patient to have follow up labs in 3 months. The patient has been instructed to start medications as directed. Pt to call for any acute emily rns, complaints, or if the blood glucose readings are starting to become less controlled. I have recommended for the patient to follow more strictly to the diabetic diet as discussed in clinic to allow for greater blood glucose control. 04/26/2013 Appointment: Katy Do WPtel: [address] [place], [place] [phone] [place] [address] Diabetic education 04/26/2013 Patient Education: Patient Medication Summary Completed 04/26/2013 Visit Plan: Elevated Blood Pressure - without diagnosis of hypertension - pt has been instructed to check blood pressure as an outpatient, record blood pressure and heart rate and report to the clinic in two weeks on the findings. Pt advised to cut back on added salt in the diet. Elevated alk phos - repeat labs in a week. - Check vitamin D level. Elevated glucose - check glucose and hgba1c. 04/14/2013 Appointment: Ally Manzanares WPtel: [address] [place] [address] [place], [place] [id number] New Patient 04/14/2013 Patient Education: Patient Medication Summary Completed 04/14/2013 Appointment: Ally Manzanares WPtel: [address] [place] [address] [place], [place] [id number] New Patient 04/05/2013 Referral: Dr Trujillo Referral Initiated Instructions Comment LISINOPRIL 10MG IRWIN Y CYMBALTA 60MG DAILY APPOINTMENT WITH DR SAMUELS . Hypertension - uncontrolled - the mari ent's medications have been modified as documented in the visit note. The patient has been counseled to cut back on salt in diet for a no added salt diet, low fat diet, start an exercise program with low weight bearing exercises and higher aerobic activity for heart health. The patient is to check blood pressure readings as an outpatient and either fax, call, or email the readings to the office next week for practitioner to review. The pt is to call for acute concerns. Depression - uncontrolled - Pt has been counseled about the diagnosis of depression, the potential causes, and risks associated with the diagnosis. The pt denies suicidal ideation, or plans. The patient has been counseled about treatment options, and understands the risks associated with treatment of depression, as well as the risks associated with NOT treating the depression. I believe the pt will benefit from medical intervention and an antidepressant has been appropriately prescribed for this patient. Cervical stenosis -bulging disc- appt with Dr Samuels . Diabetes Mellitus - new diagnosis- I have recommended for the patient to have follow up labs in 3 months. The patient has been instructed to start medications as directed. Pt to call for any acute concerns, complaints, or if the blood glucose readings are starting to become less controlled. I have recommended for the patient to follow more strictly to the diabetic diet as discussed in clinic to allow for greater blood glucose control. LEXAPRO 10MG DAILY I N THE EVENING VITAMIN D 50,000 UNITS WEEKLY X 12 WEEKS VITAMIN D3 2000 UNITS DAILY . Anxiety-depression - the patient has u ncontrolled anxiety and will benefit from an SSRI on a daily basis to attempt control of the symptoms of anxiety (tachycardia, overwhelming sensations, stress, insomnia, etc). Pt is aware of the risks and benefits of treatment with the above medications. Vitamin D deficiency-start vitamin D level . Chronic Depression and anxiety - the pt has symptoms of chronic anxiety and depression that have been fairly well controlled since the last office visit. The pt has expected periods of exacerbation with abatement of the symptoms with change in situational exposure. No change in current medications. MRI NECK CHECK LABS TODAY LYRICA 75MG TWICE DAILY TRAMADOL IF NEEDED FOR ADDITIONAL PAIN RELIEF . Hypertension - well controlled - david nue with current medications, continue with no added salt diet. Pt has been encouraged to exercise daily. The pt has been advised to call the office if there are any acute concerns about change in blood pressure readings at home. DM-no recent labs -check today Neck pain and back pain-spinal stenosis -schedule MRI neck -refer to Dr Samuels as indicated- start lyrica for radiculopathy . Pt is currently we aring a boot on the right foot post op. Pt states her foot is doing well. Pt complains of back pain, SI joint pain. Pt also complains of a cough with intermittent shortness of breath. Low back pain- the patient was instructed in appropriate posture, need for weight loss to alleviate abdominal obesity that is worsening the patient's back pain.. The pt is to use prn antiinflammatories to manage acute pain. The patient is to call the office if the pain is worsening or does not improve. Sacroiliitis - back exercises discussed with the patient, pt to continue with anti-inflammatories. Pt is to call if the symptoms do not improve or if they worsen. Sciatica- exercises discussed with the patient, pt to continue with antiinflammatories. Pt is to call if the symptoms do not improve or if they worsen. CHECK LABS TODAY MAMMOGRAM . Hypertension - well controlled - david nue with current medications, continue with no added salt diet. Pt has been encouraged to exercise daily. The pt has been advised to call the office if there are any acute concerns about change in blood pressure readings at home. DM-diet controlled-check labs Chronic Depression and anxiety - the pt has symptoms of chronic anxiety and depression that have been fairly well controlled since the last office visit. The pt has expected periods of exacerbation with abatement of the symptoms with change in situational exposure. No change in current medications. CONTINUE THERAPY -NO CHANGE IN MEDICATIONS TODAY BUT CHECK LABS -CONSIDER SWITCHING WELLBUTRIN IF SYMPTOMS UNCONTROLLED Vitamin D def-check labs-conitnue oral replacement Iron def anemia-check cbc-continue iron supplement . Urinary Tract Infe ction-discussed natural and expected course of this diagnosis and to alert me if symptoms do not follow expected course, or if any worse. UA positive for infection today in the office-plan to send for culture and will call patient with results. RX sent to patient's pharmacy. Avoid tub baths, restrictive underwear, etc. Recommend patient start on probiotic while taking the antibiotic to prevent diarrhea. Patient verbalized understanding of plan. Decrease fetzima to 20 mg daily over the weekend. . Hot flashes/flushing - Decrease fetzim a to 20 mg daily. Hypertension - The patient has been counseled to cut back on salt in diet for a no added salt diet, low fat diet, start an exercise program with low weight bearing exercises and higher aerobic activity for heart health. The patient is to check blood pressure readings as an outpatient and either fax, call, or email the readings to the office next week for practitioner to review. The pt is to call for acute concerns. HOLD METFORMIN X 1 W [place] RESTART PANTOPRAZOLE DAILY CONTINUE CARAFATE BEFORE MEALS AND AT BEDTIME START A PROBIOTIC TWICE DAILY . Diarrhea- recommended bland diet, low fat diet, start on probiotic, and rehydrate with gatorade-like product. Pt to call if feeling worse, diarrhea becomes bloody, or does not improve with above recommendations. Pt to call for acute worsening of stomach upset or stomach pain. HOLD METFORMIN. Esophageal Reflux -epigastric pain- the patient has been counseled against excessive intake of caffeine, spicy foods, peppermint, and cinnamon - all of which can exacerbate esophageal reflux. The patient is to take medications as prescribed and call the office if the symptoms are not improving. Continue carafate-add PPI. Stay off of ibuprofen. Refer to surgeon for evaluation and possible EGD. Blood in stool-check stook studies if diarrhea does not resolve STOP BYSTOLIC-START METOPROLOL . Hypertension - well controlled but bys tolic is not covered-will switch to metoprolol- continue other medications, continue with no added salt diet. Pt has been encouraged to exercise daily. The pt has been advised to call the office if there are any acute concerns about change in blood pressure readings at home. . Hypertension - wel l controlled - continue with current medications, continue with no added salt diet. Pt has been encouraged to exercise daily. The pt has been advised to call the office if there are any acute concerns about change in blood pressure readings at home. Lumbar radiculopathy-Dr Samuels to do surgery next month. . Well Adult Female - exam completed. Pap and breast exam completed. Pt will be called with results of her testing. She was advised to continue with yearly annual exams. Safe sex practices discussed during office visit today. Call if any abnormal gynecologic issues during the next year, otherwise, RTC yearly or prn. Joint pain-pleuritic chest pain-swelling of exkt-asuskak-pizrdke for autoimmune disease such as lupus-plan to check labs and proceed as indicated. Instructed patient we will call her with results of labs. . Hypertension - unc ontrolled - the patient's medications have been modified as documented in the visit note. The patient has been counseled to cut back on salt in diet for a no added salt diet, low fat diet, start an exercise program with low weight bearing exercises and higher aerobic activity for heart health. The patient is to check blood pressure readings as an outpatient and either fax, call, or email the readings to the office next week for practitioner to review. The pt is to call for acute concerns. RESTART BLOOD PRESSURE MEDICATION Anxiety - the patient has uncontrolled anxiety and will benefit from an SSRI on a daily basis to attempt control of the symptoms of anxiety (tachycardia, overwhelming sensations, stress, insomnia, etc). I also believe that the patient will benefit from very low dose of prn benzodiazepine. Pt is aware of the risks and benefits of treatment with the above medications. RECOMMEND TAKING XANAX EARLIER IN THE EVENING. Depression - uncontrolled - Pt has been counseled about the diagnosis of depression, the potential causes, and risks associated with the diagnosis. The pt denies suicidal ideation, or plans. The patient has been counseled about treatment options, and understands the risks associated with treatment of depression, as well as the risks associated with NOT treating the depression. I believe the pt will benefit from medical intervention and an antidepressant has been appropriately prescribed for this patient. SAMPLES OF FETZIMA stop the neosporin rx for diflucan check ua to r/o uti call if pain/rash does not resolve . Erythema of labia- dysuria -UA negativ e-yeast infection vs vulvar lichen sclerosis -rx sent to patient's pharmacy and instructed on use -call if symptoms do not resolve of if any worse. Patient verbalized understanding of plan. DECREASE LEXAPRO TO EVERY OTHER DAY X 1 WEEK THEN STOP START WELLBUTRIN 150MG DAILY IN THE MORNING . Hypertension - well controlled - david nue with current medications, continue with no added salt diet. Pt has been encouraged to exercise daily. The pt has been advised to call the office if there are any acute concerns about change in blood pressure readings at home. Anxiety - the patient has uncontrolled anxiety and will benefit from an SSRI on a daily basis to attempt control of the symptoms of anxiety (tachycardia, overwhelming sensations, stress, insomnia, etc). Pt is aware of the risks and benefits of treatment with the above medications. Obesity - chronic issue with this patient. The pt has been counseled about diet changes, calorie restriction, and need to exercise. Pt will RTC in one month for weight check. CHECK LABS schedule ECHO . Hypertension - well controlled - david nue with current medications, continue with no added salt diet. Pt has been encouraged to exercise daily. The pt has been advised to call the office if there are any acute concerns about change in blood pressure readings at home. DM-check Hgb A1C Vitamin D deficiency-joint pains-check labs Heart murmur-schedule Echo . Hypertension - wel l controlled - continue with current medications, continue with no added salt diet. Pt has been encouraged to exercise daily. The pt has been advised to call the office if there are any acute concerns about change in blood pressure readings at home. Anxiety - the patient has uncontrolled anxiety and will benefit from an SSRI on a daily basis to attempt control of the symptoms of anxiety (tachycardia, overwhelming sensations, stress, insomnia, etc). I also believe that the patient will benefit from very low dose of prn benzodiazepine. Pt is aware of the risks and benefits of treatment with the above medications. Depression - uncontrolled - Pt has been counseled about the diagnosis of depression, the potential causes, and risks associated with the diagnosis. The pt denies suicidal ideation, or plans. The patient has been counseled about treatment options, and understands the risks associated with treatment of depression, as well as the risks associated with NOT treating the depression. I believe the pt will benefit from medical intervention and an antidepressant has been appropriately prescribed for this patient. trazodone is to help with insomnia and to help with anxiety and depression. - hold trazodone for now lexapro is for anxiety and depression - increase to two pills daily keep metformin at current dose. picker and sorter load and unload RX for vitamin D 18333 units weekly. . Diabetes Mellitus - controlled - per r ecent FSBS reports. I have recommended for the patient to have follow up labs prior to the next office visit. The patient has been instructed to continue with current medications as previously directed, continue with regular FSBS monitoring to assure continued control of diabetes. Pt to call for any acute concerns, complaints, or if the blood glucose readings are starting to become less controlled. Vitamin D deficiency - pt to start on another 13 weeks of vitamin D, and also be on vitamin D 2000 units daily. Chronic Depression and anxiety - the pt has symptoms of chronic anxiety and depression that have been not optimally controlled since the last office visit. The pt has expected periods of exacerbation with abatement of the symptoms with change in situational exposure. Increase lexapro to 20mg daily, keep trazodone for PRN use for insomnia. . Hypertension - wel l controlled - continue with current medications, continue with no added salt diet. Pt has been encouraged to exercise daily. The pt has been advised to call the office if there are any acute concerns about change in blood pressure readings at home. Diabetes Mellitus - I have recommended for the patient to have follow up labs prior to the next office visit. The patient has been instructed to continue with current medications as previously directed, continue with regular FSBS monitoring to assure continued control of diabetes. Pt to call for any acute concerns, complaints, or if the blood glucose readings are starting to become less controlled. Iron def anemia-check labs Chronic Depression and anxiety - the pt has symptoms of chronic anxiety and depression that have been fairly well controlled since the last office visit. The pt has expected periods of exacerbation with abatement of the symptoms with change in situational exposure. No change in current medications. . Elevated Blood Pr essure - without diagnosis of hypertension - pt has been instructed to check blood pressure as an outpatient, record blood pressure and heart rate and report to the clinic in two weeks on the findings. Pt advised to cut back on added salt in the diet. Elevated alk phos - repeat labs in a week. - Check vitamin D level. Elevated glucose - check glucose and hgba1c. BRINTELLIX 10MG-TAKE 1 TAB DAILY. YOU HAVE ENOUGH SAMPLES TO LAST 4 WEEKS CALL IN 3-4 WEEKS WITH UPDATE, IF DOING WELL, WE CAN CALL OUT A PRESCRIPTION FOR BRINTELLIX AND SEE IF WE HAVE ADDITIONAL SAMPLES TO TAKE. IF DOING OK-WE WILL CALL OUT A PRESCRIPTION FOR CONTRAVE (FOR WEIGHT LOSS) AND PLAN TO SEE YOU 1 MONTH AFTER STARTING PRESCRIPTION. THIS IS TO AVOID STARTING 2 NEW MEDICATIONS AT THE SAME TIME. WE WILL CALL YOU WITH LABS RESULTS CALL WITH ANY QUESTIONS OR CONCERNS . Anxiety and depression - the patient h as uncontrolled anxiety and will benefit from an SSRI on a daily basis to attempt control of the symptoms of anxiety (tachycardia, overwhelming sensations, stress, insomnia, etc). Pt is aware of the risks and benefits of treatment with the above medications. DM-check Hgb A1C Vitamin D deficiency-stopped vitamin D-check level Hypertension - well controlled - continue with current medications, continue with no added salt diet. Pt has been encouraged to exercise daily. The pt has been advised to call the office if there are any acute concerns about change in blood pressure readings at home. Weight gain-plan to start contrave in the next month if able-follow up in 2 months for weight check . Spdier bite -much improved-return next Thursday for follow up -continue wound care as directed INCREASE METFORMIN T O A FULL TAB IN THE EVENING X 1 WEEK THEN A FULL TAB TWICE DAILY. Diabetes Mellitus - Uncontrolled - per recent FSBS reports. I have recommended for the patient to have follow up labs prior to the next office visit. The patient has been instructed to continue with current medications as previously directed, continue with regular FSBS monitoring to assure continued control of diabetes. Pt to call for any acute concerns, complaints, or if the blood glucose readings are starting to become less controlled. I have recommended for the patient to follow more strictly to the diabetic diet as discussed in clinic to allow for greater blood glucose control. UTI-finished abx-culture urine-start dilucan for yeast infection and we will call you wiht results of culture Insomnia - Pt has been advised to increase the light in the house during the day, and start dimming the lights during the evening hours. Pt has been advised to cut out caffiene after 5pm. Daytime napping worsens night time insomnia. START TRAZODONE AT HS-IF IT CONTROLS SYMPTOMS OF INSOMNIA, WE WILL WEAN OFF LEXAPRO. Anemia-check iron panel bystolic 5mg daily - monitor blood pressure and heart rate and bring readings to your next appointment . Hypertension - uncontrolled - the mari ent's medications have been modified as documented in the visit note. The patient has been counseled to cut back on salt in diet for a no added salt diet, low fat diet, start an exercise program with low weight bearing exercises and higher aerobic activity for heart health. The patient is to check blood pressure readings as an outpatient and either fax, call, or email the readings to the office next week for practitioner to review. The pt is to call for acute concerns. pt needs to take VIT OSPINA D 5000 units daily - if unable to find a 5000 unit vitamin d pill, may take two of the 2000 unit pills daily.. Diabetes Mellitus - new diagnosis- I have recommended for the patient to have follow up labs in 3 months. The patient has been instructed to start medications as directed. Pt to call for any acute concerns, complaints, or if the blood glucose readings are starting to become less controlled. I have recommended for the patient to follow more strictly to the diabetic diet as discussed in clinic to allow for greater blood glucose control. . Cellulitis - start oral antibiotics as directed, return to clinic for wound check, call for acute change in symptoms, worsening redness, warmth, discharge. [phone] Samuels and call Sandee to picker and sorter load and unload a copy . Elevated glucose-check Hgb A1C Low back pain-will write letter on patient's behalf for insurance precertification [id number] controlled-no changes . Hypertension - wel l controlled - continue with current medications, continue with no added salt diet. Pt has been encouraged to exercise daily. The pt has been advised to call the office if there are any acute concerns about change in blood pressure readings at home. Neck [id number] to Dr Mckee for evaluation-patient has been seen by Dr Samuels and he recommends pain management with Dr Yap which she is doing but isn't getting relief in symptoms-wants 2nd opinion and has seen Dr Mckee in the past and wants to go back to him. Will call for appt Low back pain-recommend patient consider PT for low back and neck pain-patient will consider-wants to see Dr Mckee for her neck first. . Hypertension - wel l controlled - continue with current medications, continue with no added salt diet. Pt has been encouraged to exercise daily. The pt has been advised to call the office if there are any acute concerns about change in blood pressure readings at home. Myalgias-check labs Anxiety-not well controlled-refer to Kym Coleman for counseling Vitamin D deficiency-check labs CHECK LABS INCREASE WELLBUTRIN TO 300MG DAILY . Hypertension - well controlled - david nue with current medications, continue with no added salt diet. Pt has been encouraged to exercise daily. The pt has been advised to call the office if there are any acute concerns about change in blood pressure readings at home. Chronic Depression and anxiety - the pt has symptoms of chronic anxiety and depression that have not been well controlled since the last office visit. The pt has expected periods of exacerbation with abatement of the symptoms with change in situational exposure. Plan to increase wellbutrin as directed DM-check Hgb A1C Vitamin d def-check labs Joint pain-swelling in hands-intermittent fevers-check inflammatory labs including tick panel
--- OUTSIDE RECORDS SUMMARY | 2019-03-04 02:35 | XMS REPORT | CCD ---
Author Author Sandee Manzanares Organization Ally Manzanares MD, [facility] Address [address] [place] [address] Phone Care Team Providers Care System Engineer Name Role Phone Ally Manzanares PP Unavailable CCM Unavailable Summary Purpose Interface Exchange Insurance Providers Payer name Policy type / Coverage type Covered republican ID Effective Begin Date Effective End Date WPS Medicare Part B Medicare Part B [id number] Unknown Cigna Health and Life Medicare Part B [id number] Unknown Family history Daughter Diagnosis Age At [...] Employment Unknown 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[employer] 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 and he brought in new people 09/15/2013 Marital status Unknown M arried 04/14/[address]: [id number] Never smoker 04/14/2013 Alcohol history Unknown occasionally [...] Cymbalta 60 mg capsu le,delayed release RxNorm: 710282 1 Capsule(s) PO daily 11/15/2018 03/14/2019 Ac tive pantoprazole 40 mg t ablet,delayed release RxNorm: 797290 1 Tablet(s) PO daily 11/15/2018 03/14/2019 Ac tive lisinopril 10 mg tablet RxNorm: 385457 1 Tablet(s) PO daily 11/15/2018 08/11/2019 Active metoprolol succinate ER 50 mg tablet,extended release 24 hr RxNorm: 093073 1 Tablet(s) PO daily 05/12/2018 11/14/2018 Inactive lisinopril 20 mg-hyd rochlorothiazide 12.5 mg tablet RxNorm: 743202 TAKE 1 TABLET BY MOUTH ONCE DAILY 05/03/2018 11/14/2018 Inactive Bactrim DS 800 mg-16 0 mg tablet RxNorm: 412935 1 Tablet(s) PO BID 04/20/2018 04/26/2018 Inactive mupirocin 2 % topica l ointment RxNorm: 148765 1 Application TOP BID 04/20/2018 04/29/2018 Inactive Diflucan 150 mg tablet RxNorm: 385141 1 Tablet(s) PO daily 11/02/2017 11/08/2017 Inactive Wellbutrin XL 300 mg 24 hr tablet, extended release RxNorm: 307804 TAKE 1 TABLET BY MOUTH ONCE DAILY 09/07/2017 10/13/2018 Inactive metoprolol succinate ER 50 mg tablet,extended release 24 hr RxNorm: 073662 1 Tablet(s) PO daily 07/20/2017 01/15/2018 Inactive amitriptyline 25 mg tablet RxNorm: 461976 Tablet(s) 2 TAB(S) PO HS 07/09/2017 10/13/2018 Inactive Bystolic 5 mg tablet RxNorm: 060575 1 Tablet(s) PO daily 06/09/2017 07/08/2017 Inactive metformin 500 mg tablet RxNorm: 231334 1/2 Tablet(s) PO QPM 05/12/2017 05/11/2017 Inactive Vitamin D2 50,000 un it capsule RxNorm: 183095 1 Capsule(s) PO QW 05/12/2017 10/13/2018 Inactive metformin 500 mg tablet RxNorm: 514608 1/2 Tablet(s) PO QPM 05/12/2017 10/13/2018 Inactive lisinopril 20 mg-hyd rochlorothiazide 12.5 mg tablet RxNorm: 310834 1 TABLET(S) PO DAILY 04/23/2017 10/19/2017 Inactive Wellbutrin XL 300 mg 24 hr tablet, extended release RxNorm: 703786 1 Tablet(s) PO daily 1 TABLET(S) PO DAILY 12/01/2016 05/29/2017 Inactive Wellbutrin XL 150 mg 24 hr tablet, extended release RxNorm: 447961 1 TABLET(S) PO DAILY 10/07/2016 11/30/2016 Inactive amitriptyline 25 mg tablet RxNorm: 080229 2 TAB(S) PO HS,INSTR: FOR PAIN AND SLEEP 09/24/2016 07/08/2017 In active amitriptyline 25 mg tablet RxNorm: 748886 2 Tablet(s) PO QHS 09/23/2016 09/23/2016 Inactive meloxicam 15 mg tablet RxNorm: 533055 1 TABLET(S) PO DAILY 09/08/2016 10/13/[address] on hold until pt needs it: she is going to take (2) 7.5mg until gone cetirizine 10 mg tablet RxNorm: 1429947 1 Tablet(s) PO daily 07/22/2016 No Stop Date Active lisinopril 20 mg-hyd rochlorothiazide 12.5 mg tablet RxNorm: 704792 1 TABLET(S) PO DAILY 06/20/2016 12/16/2016 Inactive Wellbutrin XL 150 mg 24 hr tablet, extended release RxNorm: 457360 1 TABLET(S) PO DAILY 05/12/2016 08/09/2016 Inactive Victoza 3-Jean 0.6 mg /0.1 mL (18 mg/3 mL) subcutaneous pen injector RxNorm: 214180 0.6 Milligram(s) SQ daily 03/21/2016 07/21/2016 Inactive NovoFine Plus 32 gau ge x 1/6" needle RxNorm: 1 Miscellaneous daily 03/21/2016 07/21/2016 Inactive NovoFine Plus 32 gau ge x 1/6" needle RxNorm: 1 Miscellaneous daily 03/21/2016 03/20/2016 Inactive Victoza 3-Jean 0.6 mg /0.1 mL (18 mg/3 mL) subcutaneous pen injector RxNorm: 544400 0.6 Milligram(s) SQ daily 03/21/2016 03/20/2016 Inactive Vitamin D2 50,000 un it capsule RxNorm: 651720 1 Capsule(s) PO QW 03/20/2016 06/17/2016 Inactive meloxicam 15 mg tablet RxNorm: 092648 1 Tablet(s) PO daily 03/20/2016 07/17/[address] on hold until pt needs it: she is going to take (2) 7.5mg until gone lisinopril 20 mg-hyd rochlorothiazide 12.5 mg tablet RxNorm: 532519 1 TABLET(S) PO DAILY 02/19/2016 05/18/2016 Inactive Wellbutrin XL 150 mg 24 hr tablet, extended release RxNorm: 259046 1 Tablet(s) PO daily 11/09/2015 03/07/2016 Inactive gabapentin 800 mg ta blet RxNorm: 208381 1 Tablet(s) PO TID 11/09/2015 06/08/2017 Inactive Lexapro 10 mg tablet RxNorm: 300732 1 TABLET(S) PO QPM 11/05/2015 11/08/2015 Inactive lisinopril 20 mg-hyd rochlorothiazide 12.5 mg tablet RxNorm: 063888 1 TABLET(S) PO DAILY 10/18/2015 01/15/2016 Inactive Cipro 500 mg tablet RxNorm: 514627 1 Tablet(s) PO BID 08/17/2015 08/23/2015 Inactive Lexapro 10 mg tablet RxNorm: 478989 1 Tablet(s) PO QPM 07/24/2015 10/21/2015 Inactive Vitamin D2 50,000 un it capsule RxNorm: 460442 1 Capsule(s) PO QW 07/24/2015 10/21/2015 Inactive gabapentin 300 mg ca psule RxNorm: 056281 2 Capsule(s) PO TID 07/16/2015 11/08/2015 Inactive lisinopril 20 mg-hyd rochlorothiazide 12.5 mg tablet RxNorm: 923083 1 TABLET(S) PO DAILY 04/09/2015 07/07/2015 Inactive naproxen 250 mg tablet RxNorm: 598330 1-2 Tablet(s) PO BID as needed for pain 03/08/2015 10/13/2018 In active Fetzima 40 mg capsul e,extended release RxNorm: 6103384 1 Capsule(s) PO irwin y 12/22/2014 12/21/2014 In active Fetzima 40 mg capsul e,extended release RxNorm: 9122469 1 Capsule(s) PO irwin y 12/22/2014 06/11/2015 In active Xanax 0.5 mg tablet RxNorm: 629366 1 Tablet(s) TAKE 1 TABLET BY MOUTH TWICE DAILY NEEDED FOR ANXIETY 11/17/2014 10/13/2018 Inactive lisinopril 20 mg-hyd rochlorothiazide 12.5 mg tablet RxNorm: 259427 1 Tablet(s) PO daily 11/17/2014 03/16/2015 Inactive Fetzima 20 mg capsul e,extended release RxNorm: 2200648 1 Capsule(s) PO irwin y 11/17/2014 12/22/2014 In active Xanax 0.5 mg tablet RxNorm: 537076 1 Tablet(s) TAKE 1 TABLET BY MOUTH TWICE DAILY NEEDED FOR ANXIETY 10/27/2014 11/16/2014 Inactive Xanax 0.5 mg tablet RxNorm: 895734 TAKE 1 TABLET BY MOUTH TWICE DAILY NE EDED FOR ANXIETY 08/25/2014 10/23/2014 Inactive Brintellix 10 mg tablet RxNorm: 2290873 1 Tablet(s) PO daily 07/04/2014 07/03/2014 Inactive Brintellix 10 mg tablet RxNorm: 0494669 1 Tablet(s) PO daily 07/04/2014 11/16/2014 Inactive Brintellix 10 mg tablet RxNorm: 5266087 1 Tablet(s) PO daily 06/09/2014 07/03/2014 Inactive Contrave 8 mg-90 mg tablet,extended release RxNorm: 8666044 2 Tablet(s) PO BID 06/09/2014 09/06/2014 In active 1 tab q am x 1 week, then 1 tab BID x 1 week, then 2 q am and 1 q pm x 1 week then 2 tabs BID thereafter Contrave 8 mg-90 mg tablet,extended release RxNorm: 9621342 2 Tablet(s) PO BID 06/09/2014 06/08/2014 In active 1 tab q am x 1 week, then 1 tab BID x 1 week, then 2 q am and 1 q pm x 1 week then 2 tabs BID thereafter metformin 500 mg tablet RxNorm: 359075 1/2 Tablet(s) PO BID 05/18/2014 09/14/2014 Inactive Brintellix 10 mg tablet RxNorm: 4335987 2 Tablet(s) PO daily 05/16/2014 06/08/2014 Inactive Xanax 0.5 mg tablet RxNorm: 159173 1 Tablet(s) PO BID PRN 04/06/2014 08/25/2014 Inactive Wellbutrin XL 150 mg 24 hr tablet, extended release RxNorm: 445240 1 Tablet(s) PO daily 04/04/2014 05/15/2014 Inactive [SAVINGS FOR UNINSURED PATIENTS -- BIN:0 [id number], PCN: [id number], Group: [id number], ID# [id number], Process claim through [employer] for questions: . THIS IS NOT INSURANCE.] pantoprazole 40 mg t ablet,delayed release RxNorm: 393001 1 Tablet(s) PO daily 12/01/2013 11/14/2018 In active Vitamin D3 2,000 uni t tablet RxNorm: 828726 1 Tablet(s) PO daily 10/10/2013 No Stop Date Active Vitamin D2 50,000 un it capsule RxNorm: 346082 1 Capsule(s) PO QW 10/10/2013 11/16/2014 Inactive vitamin d 50,000 units weekly x 12 weeks then 5000 units daily thereafter escitalopram 20 mg t ablet RxNorm: 731834 1 Tablet(s) PO daily 10/10/2013 04/04/2014 Inactive trazodone 100 mg tablet RxNorm: 144447 1 TABLET(S) PO QHS 09/19/2013 01/16/2014 Inactive trazodone 100 mg tablet RxNorm: 730165 1 Tablet(s) PO QHS 08/16/2013 09/14/2013 Inactive metformin 500 mg tablet RxNorm: 446436 1 Tablet(s) PO BID 08/16/2013 04/03/2014 Inactive Diflucan 150 mg tablet RxNorm: 169984 1 Tablet(s) PO daily 08/16/2013 08/22/2013 Inactive metformin 500 mg tablet RxNorm: 878719 1/2 Tablet(s) PO BID 1/2 tab in the even ing x 1 week then 1/2 tab twice daily 04/26/2013 08/15/2013 Inactive Vitamin D2 50,000 un it capsule RxNorm: 148730 1 Capsule(s) PO QW 04/21/2013 10/09/2013 Inactive vitamin d 50,000 units weekly x 12 weeks then 5000 units daily thereafter Lexapro 10 mg tablet RxNorm: 864308 1 Tablet(s) PO daily 04/14/2013 10/09/2013 Inactive Slow Fe oral RxNorm: 70494 oral No Start Date Active Flintstones Plus Iro n 15 mg iron chewable tablet RxNorm: 1 Tablet(s) PO daily No Start Date Active vitamin B complex ca psule RxNorm: 1 Capsule(s) PO daily No Start Date Active lisinopril 20 mg-hyd rochlorothiazide 12.5 mg tablet RxNorm: 806626 1 Tablet(s) PO daily No Start Date 11/16/2014 Inactive gabapentin 300 mg ca psule RxNorm: 537341 1 Capsule(s) PO TID No Start Date 07/15/2015 Inactive cetirizine 10 mg tablet RxNorm: 0484971 1 Tablet(s) PO daily No Start Date 03/05/2016 Inactive tizanidine 2 mg tablet RxNorm: 957962 1 Tablet(s) PO TID No Start Date 10/13/2018 Inactive Vitamin D2 50,000 un it capsule RxNorm: 058104 1 Capsule(s) PO QW No Start Date 04/20/2013 Inactive pantoprazole 40 mg t ablet,delayed release RxNorm: 272066 1 Tablet(s) PO daily No Start Date 10/09/2013 Inactive amitriptyline 10 mg tablet RxNorm: 091766 1 Tablet(s) PO QHS No Start Date 09/22/2016 Inactive meloxicam 7.5 mg tablet RxNorm: 272793 1 Tablet(s) PO daily No Start Date 03/19/2016 Inactive ibuprofen 200 mg tablet RxNorm: 132583 3 Tablet(s) PO TID No Start Date 11/30/2013 Inactive diclofenac 75 mg-mis oprostol 200 mcg tablet,immediate,delayed release RxNorm: 8302000 1 Tablet(s) PO BID No Start Date 10/13/2018 Inactive methocarbamol 500 mg tablet RxNorm: 473126 1 Tablet(s) PO TID No Start Date 10/13/2018 Inactive Advair Diskus 250 mc g-50 mcg/dose powder for inhalation RxNorm: 0896147 2 INH daily No Start Date 07/23/2015 [...] 10/10/2013 Laboratory exam ordered as part of [facility] general medical examination ICD-9: V72.62 10/06/2013 Swelling of extremity ICD-9: 729.81 09/15/2013 JOINT PAIN-UNSPEC ICD-9: 719.40 09/15/2013 Pleuritic chest pain ICD-9: 786.52 09/15/2013 Well woman exam with routine gynecological exam ICD-9: V72.31 09/15/2013 Nasal septal ulcer ICD-9: 478.19 09/15/2013 ANEMIA ICD-9: 285.9 08/07 DM W/O COMPLICATION TYPE II, UNCONTROLLED SNOMED: 86625633 ICD-9: 250.02 08/16/2013 Urinary tract infection ICD-9: [...] Tibc Ord40 Fe-%Sat 8.2 % 10/15/2018 B12 Zmt253 B12 387.00 pg/ml 10/15/2018 Comp Metabolic Fms295 NA 139 mEq/L 10/14/2018 Comp Metabolic Ydg220 K 4.1 mEq/L 10/14/2018 Comp Metabolic Efc813 CL 103 mEq/L 10/14/2018 Comp Metabolic Phf939 CO2 27.0 mEq/L 10/14/2018 Comp Metabolic Vfr491 AN ION GAP 13 10/14/2018 Comp Metabolic Mot656 GL UCOSE 131 mg/dL 10/14/2018 Comp Metabolic Dve187 Cr eat 0.7 mg/dL 10/14/2018 Comp Metabolic Vcx322 eG FR 98 ml/min/1.73m2 10/14 Comp Metabolic Wna748 BUN 12 mg/dL 10/14/2018 Comp Metabolic Dhn975 B/ C Ratio 17.9 Ratio 10/14/2018 Comp Metabolic Wjt479 CA LCIUM 9.0 mg/dL 10/14/2018 Comp Metabolic Qis224 AL K PHOS 127 U/L 10/14/2018 Comp Metabolic Yjv941 T(SGOT) 19 U/L 10/14/2018 Comp Metabolic Vcy156 AL T(SGPT) 17 U/L 10/14/2018 Comp Metabolic Net081 BI LI T 0.3 mg/dL 10/14/2018 Comp Metabolic Tma934 AL BUMIN 4.1 g/dL 10/14/2018 Comp Metabolic Hhy264 TP RO 6.8 g/dL 10/14/2018 Comp Metabolic Zni816 GL OB 2.7 g/dL 10/14/2018 Comp Metabolic Mat213 A/ G Ratio 1.5 Ratio 10/14/2018 Comp Metabolic Gyv497 Os mo 279 mOsmo 10/14/2018 Cbc With [...] 24.6 pg 10/14/2018 Cbc With Differential Ord2 Imperial% 12.3 % 10/14/2018 Cbc With Differential Ord2 [...] 1.70 K/ul 10/14/2018 Cbc With Differential Ord2 Imperial ABS# 0.9 K/ul 10/14/2018 Cbc With Differential Ord2 Eos ABS# 0.1 K/ul 10/14/2018 Cbc With Differential Ord2 Baso ABS# 0.1 K/ul 10/14/2018 %Hba1C Ais936 % HbA1c 34747-7 6.4 % 10/14/2018 %Hba1C Sbt073 Gluc Ave 137 mg/dL 10/14/2018 Tsh Ord6 [...] 24.3 pg 10/13/2017 Cbc With Differential Ord2 Imperial% 10.1 % 10/13/2017 Cbc With Differential Ord2 [...] 1.71 K/ul 10/13/2017 Cbc With Differential Ord2 Imperial ABS# 0.7 K/ul 10/13/2017 Cbc With Differential Ord2 Eos ABS# 0.1 K/ul 10/13/2017 Cbc With Differential Ord2 Baso ABS# 0.0 K/ul 10/13/2017 %Hba1C Jye767 % HbA1c 89221-2 6.3 % 10/13/2017 %Hba1C Sve260 Gluc Ave 134 mg/dL 10/13/2017 Comp Metabolic Gbq601 NA 144 mEq/L 10/13/2017 Comp Metabolic Zjh373 K 4.2 mEq/L 10/13/2017 Comp Metabolic Clp344 CL 110 mEq/L 10/13/2017 Comp Metabolic Mxm348 CO2 25.0 mEq/L 10/13/2017 Comp Metabolic Glo876 AN ION GAP 13 10/13/2017 Comp Metabolic Pbf944 GL UCOSE 99 mg/dL 10/13/2017 Comp Metabolic Abu005 Cr eat 0.6 mg/dL 10/13/2017 Comp Metabolic Wij101 eG FR 116 ml/min/1.73m2 09/2017 Comp Metabolic Jwh442 BUN 11 mg/dL 10/13/2017 Comp Metabolic Fzf044 B/ C Ratio 19.0 Ratio 10/13/2017 Comp Metabolic Oal386 CA LCIUM 9.1 mg/dL 10/13/2017 Comp Metabolic Eqb095 AL K PHOS 134 U/L 10/13/2017 Comp Metabolic Iwz691 T(SGOT) 18 U/L 10/13/2017 Comp Metabolic Sox428 AL T(SGPT) 17 U/L 10/13/2017 Comp Metabolic Dhf764 BI LI T 0.4 mg/dL 10/13/2017 Comp Metabolic Jpo895 AL BUMIN 4.0 g/dL 10/13/2017 Comp Metabolic Rkb381 TP RO 6.6 g/dL 10/13/2017 Comp Metabolic Nqf102 GL OB 2.6 g/dL 10/13/2017 Comp Metabolic Wqy854 A/ G Ratio 1.5 Ratio 10/13/2017 Comp Metabolic Khn556 Os mo 286 mOsmo 10/13/2017 Vitamin D 25 Oh Kzs1201 VITAMIN D, 25 HYDROXY 55.13 ng/mL 10/13/2017 I Fecal Occult Blood Dpt7580 IFOB Negative 05/13/2017 B12 Cbk127 B12 427.00 pg/ml 05/12/2017 Tibc Ord40 Iron 35 ug/dl 05/12/2017 Tibc Ord40 UIBC 412 ug/dL 05/12/2017 Tibc Ord40 TIBC 447 ug/dL 05/12/2017 Tibc Ord40 Fe-%Sat 7.8 % 05/12/2017 Ferritin Ord22 FERRITIN 7.2 ng/mL 05/12/2017 Comp Metabolic Vhy774 NA 142 mEq/L 05/12/2017 Comp Metabolic Epz232 K 4.0 mEq/L 05/12/2017 Comp Metabolic Bga803 CL 106 mEq/L 05/12/2017 Comp Metabolic Ynm123 CO2 26.0 mEq/L 05/12/2017 Comp Metabolic Vaj885 AN ION GAP 14 05/12/2017 Comp Metabolic Gen114 GL UCOSE 137 mg/dL 05/12/2017 Comp Metabolic Wlb606 Cr eat 0.6 mg/dL 05/12/2017 Comp Metabolic Rws615 eG FR 116 ml/min/1.73m2 08/2017 Comp Metabolic Dda366 BUN 9 mg/dL 05/12/2017 Comp Metabolic Wsr146 B/ C Ratio 15.5 Ratio 05/12/2017 Comp Metabolic Tey831 CA LCIUM 8.8 mg/dL 05/12/2017 Comp Metabolic Zsw041 AL K PHOS 171 U/L 05/12/2017 Comp Metabolic Kli621 T(SGOT) 18 U/L 05/12/2017 Comp Metabolic Cuh846 AL T(SGPT) 17 U/L 05/12/2017 Comp Metabolic Rjo874 BI LI T 0.2 mg/dL 05/12/2017 Comp Metabolic Qky040 AL BUMIN 3.9 g/dL 05/12/2017 Comp Metabolic Zau056 TP RO 6.5 g/dL 05/12/2017 Comp Metabolic Sgz177 GL OB 2.6 g/dL 05/12/2017 Comp Metabolic Lss249 A/ G Ratio 1.5 Ratio 05/12/2017 Comp Metabolic Zbb578 Os mo 284 mOsmo 05/12/2017 Iron Ord72 Iron 33 ug/dl 05/12/2017 Vitamin D 25 Oh Suw2875 VITAMIN D, 25 HYDROXY 31.02 ng/mL 05/12/2017 [...] 22.0 pg 05/12/2017 Cbc With Differential Ord2 Imperial% 8.1 % 05/12/2017 Cbc With Differential Ord2 [...] 1.54 K/ul 05/12/2017 Cbc With Differential Ord2 Imperial ABS# 0.6 K/ul 05/12/2017 Cbc With Differential Ord2 Eos ABS# 0.2 K/ul 05/12/2017 Cbc With Differential Ord2 Baso ABS# 0.0 K/ul 05/12/2017 %Hba1C Muh641 % HbA1c 88190-1 6.6 % 05/12/2017 %Hba1C Tez533 Gluc Ave 143 mg/dL 05/12/2017 Tsh Ord6 TSH (3rd IS) 3.18 uIU/mL 05/12/2017 Lymes Disease Total Antibodies With Western Blot Refle x [id number] B. BURGDORFERI, IGG/IGM 0.048 12/08/2016 Lymes Disease Total Antibodies With Western Blot Refle x [id number] 12/08/2016 Alena Reflex Profile [id number] ALENA ([place]) SCREEN NONE DETECTED 017 Ehrlichia Chaffeensis Antibody Igm 015201 EHRLICHIA CHAFFEENSIS IGM < 1:16 12/05/2016 [place] Spotted Fever Igg/Igm 70319 3 GUME MT SPOTTED FEVER IGM EIA . 12/05/2016 [place] Spotted Fever Igg/Igm 67753 3 RMSF, IGM 0.43 index 12/05/2016 [place] Spotted Fever Igg/Igm 00148 3 GUME MT SPOTTED FEVER IGG EIA FLEX . 12/05/2016 [place] Spotted Fever Igg/Igm 26144 3 RMSF, IGG SCREEN-FLEX Negative 12/05/2016 Ehrlichia Chaffeensis Antibody Igg 226778 EHRLICHIA CHAFFEENSIS IGG <1:64 12/05/2016 Tibc Ord40 Iron 37 ug/dl 12/02/2016 Tibc Ord40 UIBC 372 ug/dL 12/02/2016 Tibc Ord40 TIBC 409 ug/dL 12/02/2016 Tibc Ord40 Fe-%Sat 9.0 % 12/02/2016 Ferritin Ord22 FERRITIN 13.9 ng/mL 12/02/2016 B12 Taq481 B12 344.00 pg/ml 12/02/2016 %Hba1C Bzo724 % HbA1c 81506-6 6.1 % 12/01/2016 %Hba1C Bvy515 Gluc Ave 128 mg/dL 12/01/2016 Cbc With [...] 26.2 pg 12/01/2016 Cbc With Differential Ord2 Imperial% 8.8 % 12/01/2016 Cbc With Differential Ord2 [...] 1.75 K/ul 12/01/2016 Cbc With Differential Ord2 Imperial ABS# 0.6 K/ul 12/01/2016 Cbc With Differential Ord2 Eos ABS# 0.4 K/ul 12/01/2016 Cbc With Differential Ord2 Baso ABS# 0.1 K/ul 12/01/2016 Tsh Ord6 hTSH II 1.80 uIU/mL 12/01/2016 C-Reactive Protein Qnt Crqnt CRP 1.5 mg/dl 12/01/2016 Sed Rate Ord21 ESR 14 mm/hr 12/01/2016 Ra Factor Meq261 RA FACT OR <10 IU/ml 12/01/2016 Vitamin D 25 Oh Cpx5501 VITAMIN D, 25 HYDROXY 30.98 ng/mL 12/01/2016 Comp Metabolic Gfe869 NA 140 mEq/L 12/01/2016 Comp Metabolic Ree373 K 3.9 mEq/L 12/01/2016 Comp Metabolic Npu410 CL 106 mEq/L 12/01/2016 Comp Metabolic Lng539 CO2 26.0 mEq/L 12/01/2016 Comp Metabolic Sws039 AN ION GAP 12 12/01/2016 Comp Metabolic Rtx256 GL UCOSE 147 mg/dL 12/01/2016 Comp Metabolic Awz460 Cr eat 0.6 mg/dL 12/01/2016 Comp Metabolic Rig787 eG FR 114 ml/min/1.73m2 11/08 Comp Metabolic Zqk186 BUN 11 mg/dL 12/01/2016 Comp Metabolic Cei313 B/ C Ratio 18.6 Ratio 12/01/2016 Comp Metabolic Kzq014 CA LCIUM 8.8 mg/dL 12/01/2016 Comp Metabolic Fef551 AL K PHOS 138 U/L 12/01/2016 Comp Metabolic Cln335 T(SGOT) 34 U/L 12/01/2016 Comp Metabolic Jaf811 AL T(SGPT) 26 U/L 12/01/2016 Comp Metabolic Upz367 BI LI T 0.3 mg/dL 12/01/2016 Comp Metabolic Zdb495 AL BUMIN 3.8 g/dL 12/01/2016 Comp Metabolic Lsx402 TP RO 6.2 g/dL 12/01/2016 Comp Metabolic Wjz582 GL OB 2.4 g/dL 12/01/2016 Comp Metabolic Dva208 A/ G Ratio 1.6 Ratio 12/01/2016 Comp Metabolic Kvl463 Os mo 281 mOsmo 12/01/2016 %Hba1C Lhc884 % HbA1c 61009-6 6.3 % 08/05/2016 %Hba1C Qdi189 Gluc Ave 134 mg/dL 08/05/2016 Alena 114020 ALENA ([place]) S CREEN NONE DETECTED 017 Vitamin D 25 Oh Qzh0259 VITAMIN D, 25 HYDROXY 32.26 ng/mL 03/07/2016 Ra Factor Ydx929 RA FACT OR <10 IU/ml 03/07/2016 C-Reactive Protein Qnt Crqnt CRP 2.0 mg/dl 03/06/2016 Sed Rate Ord21 ESR 32 mm/hr 03/06/2016 %Hba1C Ylx532 % HbA1c 40476-7 6.3 % 03/06/2016 %Hba1C Rpf053 Gluc Ave 134 mg/dL 03/06/2016 Comp Metabolic Qqd055 NA 138 mEq/L 03/06/2016 Comp Metabolic Ciz273 K 4.3 mEq/L 03/06/2016 Comp Metabolic Vdz183 CL 103 mEq/L 03/06/2016 Comp Metabolic Kmk389 CO2 23.0 mEq/L 03/06/2016 Comp Metabolic Bzd109 AN ION GAP 16 03/06/2016 Comp Metabolic Fbk206 GL UCOSE 148 mg/dL 03/06/2016 Comp Metabolic Fut622 Cr eat 0.6 mg/dL 03/06/2016 Comp Metabolic Qvf502 eG FR 104 ml/min/1.73m2 02/07 Comp Metabolic Bks000 BUN 13 mg/dL 03/06/2016 Comp Metabolic Spd220 B/ C Ratio 20.3 Ratio 03/06/2016 Comp Metabolic Trl514 CA LCIUM 9.7 mg/dL 03/06/2016 Comp Metabolic Eqd478 AL K PHOS 146 U/L 03/06/2016 Comp Metabolic Tim214 T(SGOT) 25 U/L 03/06/2016 Comp Metabolic Tiw137 AL T(SGPT) 25 U/L 03/06/2016 Comp Metabolic Saj715 BI LI T 0.3 mg/dL 03/06/2016 Comp Metabolic Foo231 AL BUMIN 4.1 g/dL 03/06/2016 Comp Metabolic Xxn164 TP RO 6.9 g/dL 03/06/2016 Comp Metabolic Mvx352 GL OB 2.8 g/dL 03/06/2016 Comp Metabolic Ujt423 A/ G Ratio 1.5 Ratio 03/06/2016 Comp Metabolic Hxq110 Os mo 279 mOsmo 03/06/2016 Cbc With [...] 27.1 pg 03/06/2016 Cbc With Differential Ord2 Imperial% 9.2 % 03/06/2016 Cbc With Differential Ord2 [...] 1.35 K/ul 03/06/2016 Cbc With Differential Ord2 Imperial ABS# 0.5 K/ul 03/06/2016 Cbc With Differential Ord2 Eos ABS# 0.2 K/ul 03/06/2016 Cbc With Differential Ord2 Baso ABS# 0.1 K/ul 03/06/2016 Tsh Ord6 hTSH II 3.61 uIU/mL 03/06/2016 Culture Urine [id number] URI NE CULTURE SEE NOTES 08/20/2015 Culture Urine [id number] Con tinued Results 08/20/2015 Urine Culture Ucult Comp lete Growth of aerobe sent to ref lab 08/18/2015 Vitamin D 25 Oh Aoz8594 VITAMIN D, 25 HYDROXY 24.39 ng/mL 07/18/2015 Comp Metabolic Kwb650 NA 136 mEq/L 07/17/2015 Comp Metabolic Fkz672 K 4.0 mEq/L 07/17/2015 Comp Metabolic Ggh534 CL 100 mEq/L 07/17/2015 Comp Metabolic Wbv302 CO2 27.0 mEq/L 07/17/2015 Comp Metabolic Csm066 AN ION GAP 13 07/17/2015 Comp Metabolic Swv681 GL UCOSE 121 mg/dL 07/17/2015 Comp Metabolic Kzg905 Cr eat 0.7 mg/dL 07/17/2015 Comp Metabolic Gjj699 eG FR 96 ml/min/1.73m2 07/16 Comp Metabolic Ypx650 BUN 10 mg/dL 07/17/2015 Comp Metabolic Qpe242 B/ C Ratio 14.5 Ratio 07/17/2015 Comp Metabolic Enr413 CA LCIUM 8.9 mg/dL 07/17/2015 Comp Metabolic Eir889 AL K PHOS 146 U/L 07/17/2015 Comp Metabolic Ycw025 T(SGOT) 20 U/L 07/17/2015 Comp Metabolic Otd238 AL T(SGPT) 22 U/L 07/17/2015 Comp Metabolic Esk581 BI LI T 0.4 mg/dL 07/17/2015 Comp Metabolic Rdc466 AL BUMIN 4.0 g/dL 07/17/2015 Comp Metabolic Zqd431 TP RO 6.6 g/dL 07/17/2015 Comp Metabolic Lqm700 GL OB 2.6 g/dL 07/17/2015 Comp Metabolic Iul684 A/ G Ratio 1.6 Ratio 07/17/2015 Comp Metabolic Rvr921 Os mo 272 mOsmo 07/17/2015 Sed Rate [...] 26.1 pg 07/17/2015 Cbc With Differential Ord2 Imperial% 12.6 % 07/17/2015 Cbc With Differential Ord2 [...] 1.25 K/ul 07/17/2015 Cbc With Differential Ord2 Imperial ABS# 0.9 K/ul 07/17/2015 Cbc With Differential [...] Crqnt CRP 2.9 mg/dl 07/17/2015 GFR CALC 8786205 GFR AA >60 ML/MIN 10/06/2013 GFR CALC 4987515 GFR NON -AA >60 ML/MIN 10/06/2013 CHEM 14 5859472 AST 34 U/L 10/06/2013 CHEM 14 20270911 ALT 30 IU/L 10/06/2013 CHEM 14 20270911 BUN 11 MG/DL 10/06/2013 CHEM 14 9874848 ALBUMIN 4.4 GM/DL 10/06/2013 CHEM 14 20270911 CHLORIDE 107 MMOL/L 10/06/2013 CHEM 14 20270911 BILI TOT 0.4 MG/DL 10/06/2013 CHEM 14 4537968 ALK PHOS 133 U/L 10/06/2013 CHEM 14 2840240 SODIUM 140 MMOL/L 10/06/2013 CHEM 14 2036832 CREATINI NE 0.67 MG/DL 10/06/2013 CHEM 14 8600953 CALCIUM 9.3 MG/DL 10/06/2013 CHEM 14 6305441 POTASSIUM 4.0 MMOL/L 10/06/2013 CHEM 14 9622818 PROT TOT 7.1 GM/DL 10/06/2013 CHEM 14 5058909 GLUCOSE 108 MG/DL 10/06/2013 CHEM 14 9603773 BICARB 25 MMOL/L 10/06/2013 CHEM 14 2726704 ANION GAP 8 MEQ/L 10/06/2013 VIT D TOTL 4291842 VIT D TOTL 37 NG/ML 10/06/2013 GC/CHL PRB 2615563 CHLM PROBE NEG 09/21/2013 GC/CHL PRB 8843416 GC MO OBE NEG 09/21/2013 DNA AB 7700128 DNA AB 36 IU/ML 09/17/2013 RA FACTOR 1105468 RA FAC TOR <20.0 IU/ML 09/16/2013 SM MUSC AB 5873227 SM MU SC AB <1:20 09/16/2013 CARDIO G/M 1472591 CARDI O IGG 1.7 GPLU 09/16/2013 CARDIO G/M 6646757 CARDI O IGM 4.8 MPLU 09/16/2013 ALENA SCR [id number] ALENA SCR <1:80 09/16/2013 CRP 9589448 CRP 1.1 MG/DL 09/15/2013 ESR 7885381 ESR 22 MM/HR 09/15/2013 CBC 6365283 WBC 5.5 10e9/L 04/26/2013 CBC 5198526 RBC 4.89 10e12/L 04/26/2013 CBC 9910978 HGB 12.8 g/dL 04/26/2013 CBC 7153847 HCT DET 39.5 % 04/26/2013 CBC 0229832 MCV 80.8 fL 04/26/2013 CBC 9728897 MCH 26.2 pg 04/26/2013 CBC 5468783 MCHC 32.4 g/dL 04/26/2013 CBC 3872094 PLT 299 10e9/L 04/26/2013 CBC 2246335 MPV 10.9 fL 04/26/2013 CBC 4501537 WAN % 59.0 % 04/26/2013 CBC 7902908 LY % 29.6 % 04/26/2013 CBC 1176458 MON % 9.1 % 04/26/2013 CBC 6151586 EOS % 1.8 % 04/26/2013 CBC 7347624 BASO % 0.5 % 04/26/2013 CBC 4522480 RDW 13.9 % 04/26/2013 CBC 2457971 ABS WAN 3.25 10e9/L 04/26/2013 CBC 8914983 ABS LYMPH 1.63 10e9/L 04/26/2013 CBC 3388999 ABS MONO 0.50 10e9/L 04/26/2013 CBC 7105593 ABS EOS 0.10 10e9/L 04/26/2013 CBC 0826510 ABS BASO 0.03 10e9/L 04/26/2013 CBC 8371388 RDW-SD 39.9 fL 04/26/2013 URINALYSIS NONAUTO W/O SCOPE 58681 Specific [place] 1.020 DateTime(Free Text in Aprima) URINALYSIS NONAUTO W/O SCOPE 91662 PH 6.0 DateTime(Free Rik t in Apr) URINALYSIS NONAUTO W/O SCOPE 96842 GLUCOSE neg DateTime(Free Rik t in Aprima) URINALYSIS NONAUTO W/O SCOPE 77542 Protein neg DateTime(Free Rik t in Aprima) URINALYSIS NONAUTO W/O SCOPE 05329 Blood neg DateTime(Free Rik t in Aprima) URINALYSIS NONAUTO W/O SCOPE 57900 Bilirubin neg DateTime(Free Rik t in Aprima) URINALYSIS NONAUTO W/O SCOPE 42448 Ketones neg DateTime(Free Rik t in Aprima) URINALYSIS NONAUTO W/O SCOPE 10089 Urobilinogen neg DateTime(Free Text in Aprima) URINALYSIS NONAUTO W/O SCOPE 56741 Nitrite neg DateTime(Free Rik t in Aprima) URINALYSIS NONAUTO W/O SCOPE 67747 Leukocytes 1+ DateTime(Free Text in Aprima) Review [...] Date URINALYSIS NONAUTO W /O SCOPE CPT-4: 53284 11/02/2017 OCCULT BLOOD FECES CPT- 4: 78805 12/08/2016 IMMUNIZATION ADMIN CPT- 4: 57022 12/07/2015 FLU VACC 4 AMBER 3 YRS PLUS IM SNOMED CT: [id number] CPT-4: 84919 12/07/2015 URINALYSIS NONAUTO W /O SCOPE CPT-4: 19281 08/17/2015 CHEM 14 (COMPREHEN M ETABOLIC PANEL) CPT-4: 74873 10/06/2013 VIT D TOTL (VITAMIN D 25 HYDROXY) CPT-4: 01724 10/06/2013 CRP (C-REACTIVE PROT EIN) CPT-4: 53160 09/15/2013 ESR (RBC SED RATE AU TOMATED) CPT-4: 51973 09/15/2013 ROUTINE VENIPUNCTURE CPT-4: 58748 09/15/2013 URINALYSIS NONAUTO W /O SCOPE CPT-4: 08187 08/16/2013 C URINE RT CPT-4: 3258389 08/16/2013 C URINE RT (URINE CU LTURE/COLONY COUNT) CPT-4: 02617 08/16/2013 ROUTINE VENIPUNCTURE CPT-4: 75645 04/26/2013 Vital Signs Date Vital 11/15/2018 Blood Pressure 1: 142/88 Code: 8480-6 Heart Rate 1: 91 bpm Height: 5'5" SpO2: 98% 10/14/2018 Blood Pressure 1: 140/82 Code: 8480-6 BMI: 37.9 Code: 05226-0 Heart Rate 1: 80 bpm Height: 5'5" SpO2: 96% Weight: 228 lbs 04/22/2018 Heigh t: Weight: 04/20/2018 Blood Pressure 1: 150/90 Code: 8480-6 Heart Rate 1: 104 bpm Height: SpO2: 95% Weight: 11/02/2017 Blood Pressure 1: 130/76 Code: 8480-6 BMI: 37.6 Code: 05201-8 Heart Rate 1: 68 bpm Height: 5'5" SpO2: 98% Weight: 226 lbs 10/13/2017 Blood Pressure 1: 140/86 Code: 8480-6 BMI: 37.4 Code: 90200-8 Heart Rate 1: 78 bpm Height: 5'5" SpO2: 98% Weight: 225 lbs 07/20/2017 Blood Pressure 1: 128/80 Code: 8480-6 BMI: 39.1 Code: 19897-5 Heart Rate 1: 75 bpm Height: 5'5" SpO2: 98% Weight: 235 lbs 06/09/2017 Blood Pressure 1: 150/92 Code: 8480-6 BMI: 39.1 Code: 30604-8 Heart Rate 1: 106 bpm Height: 5'5" SpO2: 98% Weight: 235 lbs 05/12/2017 Blood Pressure 1: 144/68 Code: 8480-6 BMI: 38.9 Code: 74227-7 Heart Rate 1: 89 bpm Height: 5'5" SpO2: 98% Weight: 234 lbs 12/01/2016 Blood Pressure 1: 140/88 Code: 8480-6 BMI: 39.6 Code: 03532-5 Heart Rate 1: 101 bpm Height: 5'5" SpO2: 97% Weight: 238 lbs 08/05/2016 Blood Pressure 1: 134/82 Code: 8480-6 Heart Rate 1: 113 bpm Height: 5'5" SpO2: 98% 07/22/2016 Blood Pressure 1: 142/84 Code: 8480-6 BMI: 39.6 Code: 45771-2 Heart Rate 1: 103 bpm Height: 5'5" SpO2: 97% Weight: 238 lbs 03/06/2016 Blood Pressure 1: 138/86 Code: 8480-6 Heart Rate 1: 100 bpm SpO2: 96% Weight: 246 lbs 12/07/2015 Blood Pressure 1: 140/78 Code: 8480-6 BMI: 40.8 Code: 59921-3 Heart Rate 1: 97 bpm Height: 5'6" SpO2: 98% Weight: 250 lbs 11/09/2015 Blood Pressure 1: 118/84 Code: 8480-6 BMI: 40.7 Code: 08595-3 Heart Rate 1: 85 bpm Height: 5'6" SpO2: 98% Weight: 249 lbs 08/17/2015 Blood Pressure 1: 122/82 Code: 8480-6 BMI: 39.4 Code: 46199-9 Heart Rate 1: 86 bpm Height: 5'6" SpO2: 95% Weight: 241 lbs 07/24/2015 Blood Pressure 1: 118/76 Code: 8480-6 BMI: 39.9 Code: 65011-4 Heart Rate 1: 97 bpm Height: 5'6" SpO2: 96% Weight: 244 lbs 07/16/2015 Blood Pressure 1: 158/80 Code: 8480-6 Blood Pressure 1: 120/86 Code: 8480-6 Heart Rate 1: 105 bpm Height: 5'6" SpO2: 98% Weight: 06/12/2015 Blood Pressure 1: 128/82 Code: 8480-6 BMI: 39.9 Code: 55870-7 Heart Rate 1: 89 bpm Height: 5'6" SpO2: 98% Weight: 244 lbs 03/08/2015 Blood Pressure 1: 130/86 Code: 8480-6 Heart Rate 1: 98 bpm Height: 5'6" SpO2: 97% Weight: 12/29/2014 Blood Pressure 1: 138/88 Code: 8480-6 BMI: 39.2 Code: 97056-9 Heart Rate 1: 109 bpm Height: 5'6" SpO2: 97% Weight: 240 lbs 11/17/2014 Blood Pressure 1: 170/98 Code: 8480-6 BMI: 39.7 Code: 88037-4 Heart Rate 1: 92 bpm Height: 5'6" SpO2: 98% Weight: 243 lbs 05/16/2014 Blood Pressure 1: 130/82 Code: 8480-6 BMI: 39.2 Code: 76742-9 Heart Rate 1: 88 bpm Height: 5'6" Weight: 240 lbs 04/04/2014 Blood Pressure 1: 146/92 Code: 8480-6 Blood Pressure 2: 136/86 Code: 8480-6 BMI: 39.9 Code: 79467-7 Heart Rate 1: 68 bpm Height: 5'6" Weight: 244 lbs 12/01/2013 Blood Pressure 1: 142/80 Code: 8480-6 BMI: 38.4 Code: 59894-7 Heart Rate 1: 80 bpm Height: 5'6" Weight: 235 lbs 10/10/2013 Blood Pressure 1: 128/88 Code: 8480-6 BMI: 38.7 Code: 72995-9 Heart Rate 1: 88 bpm Height: 5'6" Weight: 237 lbs 09/15/2013 Blood Pressure 1: 112/74 Code: 8480-6 BMI: 39.0 Code: 84446-8 Heart Rate 1: 80 bpm Height: 5'6" Weight: 239 lbs 08/16/2013 Blood Pressure 1: 124/64 Code: 8480-6 BMI: 39.0 Code: 11077-7 Heart Rate 1: 88 bpm Height: 5'6" Weight: 239 lbs 06/06/2013 Blood Pressure 1: 120/72 Code: 8480-6 BMI: 37.9 Code: 66025-2 Heart Rate 1: 84 bpm Height: 5'6" Weight: 232 lbs 04/26/2013 Blood Pressure 1: 148/86 Code: 8480-6 BMI: 37.7 Code: 82217-8 Heart Rate 1: 84 bpm Height: 5'6" Weight: 231 lbs 04/14/2013 Blood Pressure 1: 148/92 Code: 8480-6 BMI: 38.2 Code: 47240-9 Heart Rate 1: 88 bpm Height: 5'6" [...] Encounter Performer Loca tion Codes Date ( 64500 EST. P ATIENT, LEVEL IV Diagnosis: Essential (primary) hypertension[ICD10: I10] Diagnosis: Cervicalgia[ICD10: M54.2] Diagnosis: Major depressive disorder, recurrent, moderate[ICD10: F33.1] [facility] CPT-4: 65482 11/15/2018 ([id number] 81654 EST. [facility] Diagnosis: Essential (primary) hypertension[ICD10: I10] Diagnosis: Type 2 diabetes mellitus with hyperglycemia[ICD10: E11.65] Diagnosis: Cervicalgia[ICD10: M54.2] Diagnosis: Low back pain[ICD10: M54.5] [facility] CPT- 4: 02852 10/14/2018 ([id number]) Miscellaneou s no charge Diagnosis: Insect bite (nonvenomous), left lower leg, subsequent encounter[ICD10: S80.862D] [facility] CPT-4: 49653 04/22/2018 ([id number]) 05113 EST. P ATIENT, LEVEL III Diagnosis: Insect bite (nonvenomous), left lower leg, initial encounter[ICD10: S80.862A] Katy Manzanares MD, [facility] CPT-4: 97301 04/20/2018 58445 EST. PATIENT, LEVEL II Diagnosis: Dysuria[ICD10: R30.0] Diagnosis: Other specified conditions associated with female genital organs and menstrual cycle[ICD10: N94.89] Katy Manzanares MD, [facility] CPT-4: 19381 11/02/2017 ([id number]) 71856 EST. 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 P ATIENT, LEVEL III Diagnosis: Essential (primary) hypertension[ICD10: I10] Katy Manzanares MD, [facility] CPT-4: 14782 07/20/2017 ([id number]) 32731 EST. P ATIENT, LEVEL III Diagnosis: Essential (primary) hypertension[ICD10: I10] Katy Manzanares MD, [facility] CPT-4: 42463 06/09/2017 ([id number]) 74041 EST. 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 P ATIENT, LEVEL IV Diagnosis: Essential [...] Diagnosis: Fever, unspecified[ICD10: R50.9] Katy Manzanares MD, [facility] CPT- 4: 56915 12/01/2016 ([id number]) 84763 EST. P ATIENT, LEVEL III Diagnosis: Impaired fasting glucose[ICD10: R73.01] Diagnosis: Low back pain[ICD10: M54.5] Diagnosis: Generalized anxiety disorder[ICD10: F41.1] Katy Manzanares MD, [facility] CPT-4: 57611 08/05/2016 ([id number]) 75076 EST. P ATIENT, LEVEL III Diagnosis: Essential (primary) hypertension[ICD10: I10] Diagnosis: Radiculopathy, lumbar region[ICD10: M54.16] Katy Manzanares MD, [facility] CPT-4: 64742 07/22/2016 ([id number]) Miscellaneou s no charge Diagnosis: Dysuria[ICD10: R30.0] Ally Manzanares MD, [facility] CPT-4: 80596 06/12/2016 ([id number]) 36060 EST. P ATIENT, LEVEL IV Diagnosis: Type 2 diabetes mellitus without complications[ICD10: E11.9] Diagnosis: Vitamin D deficiency, unspecified[ICD10: E55.9] Diagnosis: Generalized anxiety disorder[ICD10: F41.1] Diagnosis: Essential (primary) hypertension[ICD10: I10] Diagnosis: Radiculopathy, cervical region[ICD10: M54.12] Diagnosis: Cardiac murmur, unspecified[ICD10: R01.1] Katy Manzanares MD, [facility] CPT-4: 53145 03/06/2016 ([id number]) 67597 EST. P ATIENT, LEVEL III Diagnosis: Generalized anxiety disorder[ICD10: F41.1] Diagnosis: Major depressive disorder, recurrent, in partial remission[ICD10: F33.41] Katy Manzanares MD, [facility] CPT-4: 47940 12/07/2015 ([id number]) 27142 EST. P ATIENT, LEVEL IV Diagnosis: Essential (primary) hypertension[ICD10: I10] Diagnosis: Generalized anxiety disorder[ICD10: F41.1] Diagnosis: Other obesity due to excess calories[ICD10: E66.09] Katy Manzanares MD, [facility] CPT-4: 12110 11/09/2015 ([id number]) 20821 EST. P ATIENT, LEVEL III Diagnosis: Urinary tract infection, site not specified[ICD10: N39.0] Katy Manzanares MD, [facility] CPT-4: 21942 08/17/2015 ([id number]) 27966 EST. P ATIENT, LEVEL III Diagnosis: Generalized anxiety disorder[ICD10: F41.1] Diagnosis: Major depressive disorder, recurrent, moderate[ICD10: F33.1] Katy Manzanares MD, [facility] CPT-4: 22037 07/24/2015 ([id number]) 88116 EST. P ATIENT, LEVEL IV Diagnosis: Myalgia[ICD10: M79.1] Diagnosis: Low back pain[ICD10: M54.5] Diagnosis: Cervicalgia[ICD10: M54.2] Diagnosis: Essential (primary) hypertension[ICD10: I10] Diagnosis: Vitamin D deficiency, unspecified[ICD10: E55.9] Diagnosis: Generalized anxiety disorder[ICD10: F41.1] Katy Manzanares MD, [facility] CPT-4: 78968 07/16/2015 ([id number]) 12726 EST. P ATIENT, LEVEL IV Diagnosis: Cervicalgia[ICD10: M54.2] Diagnosis: Essential (primary) hypertension[ICD10: I10] Diagnosis: Low back pain[ICD10: M54.5] Diagnosis: Radiculopathy, cervical region[ICD10: M54.12] Katy Manzanares MD, [facility] CPT-4: 38168 06/12/2015 88627 EST. PATIENT, LEVEL III Diagnosis: Sacroiliitis, not elsewhere classified[ICD10: M46.1] Diagnosis: Low back pain[ICD10: M54.5] Diagnosis: Pain in left hip[ICD10: M25.552] Diagnosis: Pain in right hip[ICD10: M25.551] Samantha Manzanares MD, [facility] CPT-4: 75315 03/08/2015 04236 EST. PATIENT, LEVEL III Diagnosis: Anxiety disorder due to known physiological condition[ICD10: F06.4] Diagnosis: Mood disorder due to known physiological condition with depressive features[ICD10: F06.31] Diagnosis: Flushing[ICD10: R23.2] Samantha Manzanares MD, [facility] CPT-4: 86067 12/29/2014 ([id number]) 48646 EST. P ATIENT, LEVEL IV Diagnosis: ESSENTIAL HYPERTENSION[ICD9: 401.9] Diagnosis: Anxiety[ICD9: 300.00] Diagnosis: Depression[ICD9: 311] Katy Manzanares MD, [facility] CPT-4: 20332 11/17/2014 ([id number]) 13161 EST. P ATIENT, LEVEL IV Diagnosis: Anxiety[ICD9: 300.00] Diagnosis: Depression[ICD9: 311] Diagnosis: DIABETES TYPE II[ICD9: 250.00] Diagnosis: Vitamin D deficiency[ICD9: 268.9] Diagnosis: ESSENTIAL HYPERTENSION[ICD9: 401.9] Diagnosis: ABNORMAL WEIGHT GAIN[ICD9: 783.1] Katy Manzanares MD, [facility] CPT- 4: 59922 05/16/2014 ([id number]) 71279 EST. P ATIENT, LEVEL IV Diagnosis: ESSENTIAL HYPERTENSION[ICD9: 401.9] Diagnosis: Anxiety[ICD9: 300.00] Diagnosis: Depression[ICD9: 311] Katy Manzanares MD, [facility] CPT-4: 40884 04/04/2014 ([id number]) 70352 EST. P ATIENT, LEVEL IV Diagnosis: Diarrhea[ICD9: 787.91] Diagnosis: Epigastric pain[ICD9: 789.06] Diagnosis: ESOPHAGEAL REFLUX[ICD9: 530.81] Diagnosis: Blood in stool[ICD9: 578.1] Katy Manzanares MD, [facility] CPT- 4: 92280 12/01/2013 ([id number]) 76951 EST. P ATIENT, LEVEL IV Diagnosis: Vitamin D deficiency[ICD9: 268.9] Diagnosis: DIABETES TYPE II[ICD9: 250.00] Diagnosis: Depression[ICD9: 311] Diagnosis: Insomnia[ICD9: 780.52] Ally Manzanares MD, [facility] CPT-4: 29927 10/10/2013 ([id number]) PREV VISIT E ST AGE 40-64 Diagnosis: Well woman exam with routine gynecological exam[ICD9: V72.31] Diagnosis: JOINT PAIN-UNSPEC[ICD9: 719.40] Diagnosis: Nasal septal ulcer[ICD9: 478.19] Diagnosis: Swelling of extremity[ICD9: 729.81] Diagnosis: Pleuritic chest pain[ICD9: 786.52] Katy Manzanares MD, [facility] CPT-4: 20359 09/15/2013 ([id number]) 15435 EST. P ATIENT, LEVEL IV Diagnosis: DM W/O COMPLICATION TYPE II, UNCONTROLLED[SNOMED: 81694033] Diagnosis: Urinary tract infection[ICD9: 599.0] Diagnosis: DEPRESSIVE DISORDER NEC[ICD9: 311] Diagnosis: Anxiety[ICD9: 300.00] Diagnosis: Insomnia[ICD9: 780.52] Diagnosis: ANEMIA[ICD9: 285.9] Katy Manzanares MD, [facility] CPT-4: 16702 08/16/2013 ([id number]) 41262 EST. P ATIENT, LEVEL III Diagnosis: DM w/o complication type II, uncontrolled[SNOMED: 84562529] Ally Manzanares MD, [facility] CPT-4: 44798 06/06/2013 ([id number]) 15422 EST. P ATIENT, LEVEL III Diagnosis: DIABETES TYPE II[SNOMED: 905496952] [facility] CPT- 4: 50772 04/26/2013 ([id number]) OFFICE VISI T, NEW - LEVEL 4 Diagnosis: Elevated blood pressure[ICD9: 796.2] Diagnosis: Depression[ICD9: 311] Diagnosis: Elevated alkaline phosphatase level[ICD9: 790.5] Diagnosis: Elevated glucose[ICD9: 790.29] Ally Manzanares MD, [facility] CPT-4: 64229 04/14/2013 Plan of Care Planned Activity Notes [...] -bulging disc- appt with Dr Samuels 11/15/2018 Patient Education: Patient Medication Summary Completed [...] for radiculopathy 10/14/2018 Appointment: Katy Do WPtel: [address] [place], [place] [phone] (15 min) Moderate 10/14/2018 Patient Education: Patient [...] as directed 04/22/2018 Appointment: Katy Do WPtel: [phone] (30 min) Complex 04/22/2018 Patient Education: Patient Medication Summary Completed 04/22/2018 Visit Plan: Cellulitis - start oral antibiotics as directed, return to clinic for wound check, call for acute change in symptoms, worsening redness, warmth, discharge. 04/20/2018 Appointment: Katy Do WPtel: [address] [place], [place] [phone] (10 min) Simple 04/20/2018 Patient Education: Patient Medication Summary Completed 04/20/2018 Visit Plan: Erythema of labia- dysu vonda -UA negative-yeast infection vs vulvar lichen sclerosis -rx sent to patient's pharmacy and instructed on use -call if symptoms do not resolve of if any worse. Patient verbalized understanding of plan. 11/02/2017 Appointment: Katy Do WPtel: [phone] (15 min) Moderate 11/02/2017 Patient Education: Patient [...] current medications. 10/13/2017 Appointment: Katy Do WPtel: [phone] (30 min) Complex 10/13/2017 Patient Education: Patient Medication Summary Completed 10/13/2017 Appointment: Katy Do WPtel: [phone] (15 min) Moderate 08/20/2017 Visit Plan: Hypertension - well con trolled but bystolic is not covered-will switch to metoprolol- continue other medications, continue with no added salt diet. Pt has been encouraged to exercise daily. The pt has been advised to call the office if there are any acute concerns about change in blood pressure readings at home. 07/20/2017 Appointment: Katy Do WPtel: [phone] (15 min) Moderate 07/20/2017 Patient Education: Patient Medication Summary Completed 07/20/2017 Appointment: Katy Do WPtel: [phone] [phone] (15 min) Moderate 07/14/2017 Visit Plan: Hypertension [...] iron supplement 05/12/2017 Appointment: Katy Do WPtel: [phone] [phone] (30 min) [facility] 05/12/2017 Patient Education: Patient Medication Summary Completed 05/12/2017 Patient Education: Patient Medication Summary Completed 05/12/2017 Care Plan: SCREENINGMAMMOGRAPHYDIGITAL LOINC : 50759-7 Pending 05/12/2017 Appointment: Lab Draw 12/08/2016 Patient [...] tick panel 12/01/2016 [phone] ([facility]) Complex 12/01/2016 Patient Education: Patient Medication Summary Completed 12/01/2016 Patient Education: Obesity Completed 12/01/2016 Care Plan: Lymes Disease Antibobies Igg/ Igm Pending 12/01/2016 Visit Plan: Elevated glucose-check Hgb A1C Low back pain-will write letter on patient's behalf for insurance precertification Vhwjaod-hitvchbybv-jlnm controlled-no changes 08/05/2016 [facility]ointment[phone] (30 min) Complex 08/05/2016 Patient Education: Patient [...] next month. 07/22/2016 Appointment[phone] (15 min) Moderate 07/22/2016 Patient Education: Patient [...] murmur-schedule Echo 03/06/2016 [facility]ment[phone] (30 min) Complex 03/06/2016 Patient Education: Patient [...] current medications. 12/07/2015 Appointment: Katy Do WPtel: [address] [place], [place] [phone] [place] [address] (30 min) Complex 12/07/2015 Patient Education: Patient [...] weight check. 11/09/2015 Appointment: Katy Do WPtel: [address] [place], [place] [phone] [place] [address] (30 min) Complex 11/09/2015 Patient Education: Patient Medication Summary Completed 11/09/2015 Patient Education: Obesity Completed 11/09/2015 Care Plan: BMI Above normal followup LOLI F-MGMT EDUC & TRAIN 1 PT Pending 11/09/2015 Appointment: Katy Do WPtel: [address] [place], [place] [phone] [place] [address] (30 min) Complex 11/08/2015 Appointment: Katy Do WPtel: [address] [place], [place] [phone] (15 min) Moderate 08/23/2015 Visit Plan: Urinary [...] D level 07/24/2015 Appointment: Katy Do WPtel: [address] [place] [phone] (30 min) [facility] 07/24/2015 Patient Education: Patient Medication Summary Completed [...] in blood pressure readings at home. Neck omvt-iheswebjkjvdo-hnxuk to Dr Mckee for evaluation-patient has been [...] appropriately prescribed for this patient. SAMPLES OF [place] 11/17/2014 Appointment: (30 min) Complex 11/17/2014 Patient Education: Patient Medication Summary Completed 11/17/2014 Patient Education: Hypertension Completed 11/17/2014 Appointment: (15 min) Moderate 09/04/2014 Appointment: Katy Do WPtel: [address] [place], [place] [phone] [place] Follow up 07/07/2014 Visit Plan: Anxiety and [...] Hypertension Completed 05/16/2014 Appointment: Katy Do WPtel: [phone] [place] Follow up 05/09/2014 Visit Plan: Hypertension - [...] this patient. 04/04/2014 Appointment: Kat[facility] Do WPtel[phone] Follow up 04/04/2014 Patient Education: Patient Medication [...] 12/01/2013 Care Plan: Referral Order SNOMED-CT : [id number] Ordered 12/01/2013 Visit Plan: Diabetes Mellitus - [...] for insomnia. 10/10/2013 Appointment: Ally Manzanares WPtel: [facility] Follow up 10/10/2013 Patient Education: Patient Medication Summary Completed 10/10/2013 Appointment: Ally Manzanares WPtel: [facility] [place] Lab Draw 10/06/2013 Patient Education: Patient Medication Summary Completed 10/06/2013 Appointment: Ally Manzanares WPtel: [facility] [place] Follow up 10/04/2013 Visit Plan: Well Adult [...] or prn. Joint pain-pleuritic chest pain-swelling of xsva-sxpibla-xgoksap for autoimmune disease such as lupus-plan to check labs and proceed as indicated. Instructed patient we will call her with results of labs. 09/15/2013 Appointment: Katy Do WPtel: [phone] [phone] [place] Pap Only 09/15/2013 Patient Education: Patient [...] iron panel 08/16/2013 Appointment: Katy Do WPtel: [phone] Follow up 08/16/2013 Patient Education: Patient Medication Summary Completed 08/16/2013 Care Plan: C URINE RT Pending 08/16/2013 Appointment: Katy Do WPtel: [address] [place], [place] [phone] Follow up 08/09/2013 Appointment: Ally Manzanares WPtel: [address] [place], [place] [phone] Follow up 08/08/2013 Visit Plan: Diabetes Mellitus [...] glucose control. 06/06/2013 Appointment: Ally Manzanares WPtel: [facility] [place] Follow up 06/06/2013 Patient Education: Patient Medication Summary Completed 06/06/2013 Appointment: Ally Manzanares WPtel: [address] [place] [address] Follow up 05/12/2013 Visit Plan: Diabetes Mellitus [...] glucose control. 04/26/2013 Appointment: Katy Do WPtel: [address] [place] [phone] Diabetic education 04/26/2013 Patient Education: Patient Medication [...] and hgba1c. 04/14/2013 Appointment: Ally Manzanares WPtel: [address] [place] [address] New Patient 04/14/2013 Patient Education: Patient Medication Summary Completed 04/14/2013 Appointment: Ally Manzanares WPtel: [address] [place] [address] New Patient 04/05/2013 Referral: Dr Trujillo Referral Initiated Instructions Comment BRINTELLIX 10MG-TAKE 1 TAB DAILY. YOU HAVE [...] in 2 months for weight check . Elevated Blood Pr essure - without [...] Elevated glucose - check glucose and hgba1c. . Hypertension - wel l controlled - [...] situational exposure. No change in current medications. trazodone is to help with insomnia and to help with anxiety and depression. - hold trazodone for now lexapro is for anxiety and depression - increase to two pills daily keep metformin at current dose. 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 . Diabetes Mellitus - controlled [...] has been appropriately prescribed for this patient. CHECK LABS schedule ECHO . Hypertension - well controlled - david nue with current medications, continue with no added salt diet. Pt has been encouraged to exercise daily. The pt has been advised to call the office if there are any acute concerns about change in blood pressure readings at home. DM-check Hgb A1C Vitamin D deficiency-joint pains-check labs Heart murmur-schedule Echo DECREASE LEXAPRO TO EVERY OTHER DAY X [...] RTC in one month for weight check. LISINOPRIL 10MG IRWIN Y CYMBALTA 60MG DAILY [...] stenosis -bulging disc- appt with Dr Samuels stop the neosporin rx for diflucan check ua to r/o uti call if pain/rash does not resolve . Erythema of labia- dysuria -UA negativ e-yeast infection vs vulvar lichen sclerosis -rx sent to patient's pharmacy and instructed on use -call if symptoms do not resolve of if any worse. Patient verbalized understanding of plan. . Hypertension - unc ontrolled - the [...] prescribed for this patient. SAMPLES OF FETZIMA . Well Adult Female - exam completed. Pap and breast exam completed. Pt will be called with results of her testing. She was advised to continue with yearly annual exams. Safe sex practices discussed during office visit today. Call if any abnormal gynecologic issues during the next year, otherwise, RTC yearly or prn. Joint pain-pleuritic chest pain-swelling of hhve-ppallom-qodhgmc for autoimmune disease such as lupus-plan to check labs and proceed as indicated. Instructed patient we will call her with results of labs. . Hypertension - wel l controlled - continue with current medications, continue with no added salt diet. Pt has been encouraged to exercise daily. The pt has been advised to call the office if there are any acute concerns about change in blood pressure readings at home. Lumbar radiculopathy-Dr Samuels to do surgery next month. STOP BYSTOLIC-START METOPROLOL . Hypertension - well controlled but bys tolic is not covered-will switch to metoprolol- continue other medications, continue with no added salt diet. Pt has been encouraged to exercise daily. The pt has been advised to call the office if there are any acute concerns about change in blood pressure readings at home. . Diabetes Mellitus - new diagnosis- I [...] to allow for greater blood glucose control. HOLD METFORMIN X 1 W [place] RESTART PANTOPRAZOLE DAILY CONTINUE CARAFATE BEFORE MEALS [...] stook studies if diarrhea does not resolve . Urinary Tract Infe ction-discussed natural and [...] prevent diarrhea. Patient verbalized understanding of plan. LEXAPRO 10MG DAILY I N THE EVENING [...] do not improve or if they worsen. INCREASE METFORMIN T O A FULL TAB [...] WILL WEAN OFF LEXAPRO. Anemia-check iron panel . Spdier bite -much improved-return next Thursday for follow up -continue wound care as directed bystolic 5mg daily - monitor blood pressure [...] to allow for greater blood glucose control. CHECK LABS TODAY MAMMOGRAM . Hypertension - [...] Iron def anemia-check cbc-continue iron supplement . Cellulitis - start oral antibiotics as directed, return to clinic for wound check, call for acute change in symptoms, worsening redness, warmth, discharge. Decrease fetzima to 20 mg daily over [...] pt is to call for acute concerns. [phone] Samuels and call Sandee to crop picker a copy . Elevated glucose-check Hgb A1C Low back pain-will write letter on patient's behalf for insurance precertification Fxlcvyo-[id number]-[id number] controlled-no changes . Hypertension - wel l controlled - continue with current medications, continue with no added salt diet. Pt has been encouraged to exercise daily. The pt has been advised to call the office if there are any acute concerns about change in blood pressure readings at home. Neck hkoe-lczyxtnprvuuv-lioev to Dr Mckee for evaluation-patient has been [...]
--- OUTSIDE RECORDS SUMMARY | 2019-03-04 02:37 | XMS REPORT | CCD ---
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[employer], [employer]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 09/15/2013 Marital status Unknown M arried 04/14/[address]: [id number] Never smoker 04/14/2013 Alcohol history Unknown occasionally [...] Codes Condition Status Onset Date Resolved Date Anemia, unspecified ICD- 9: 285.9 ICD-10: D64.9 Active 12/02/2016 Unknown Cervicalgia ICD-9: 723.1 ICD-10: M54.2 Active 07/15/2015 Unknown Essential (primary) hypertension ICD-9: 401.9 ICD-10: I10 Active 03/05/2016 Unknown Low back pain ICD-9: 724.2 ICD-10: [...] ICD-9: 280.0 ICD-10: D50.0 Active 05/12/2017 Unknown Major depressive dis order, recurrent, moderate ICD-9: 296.32 ICD-10: F33.1 Active 07/23/2015 Unknown Vitamin D deficiency , unspecified ICD-9: [...] Condition Codes Effectiv e Dates Condition Status Anemia, unspecified ICD- 9: 285.9 ICD-10: D64.9 12/02/2016 Active Cervicalgia ICD-9: 723.1 ICD-10: M54.2 07/15/2015 Active Essential (primary) hypertension ICD-9: 401.9 ICD-10: I10 03/05/2016 Active Low back pain ICD-9: 724.2 ICD-10: [...] (chronic) ICD-9: 280.0 ICD-10: D50.0 05/12/2017 Active Major depressive dis order, recurrent, moderate ICD-9: 296.32 ICD-10: F33.1 07/23/2015 Active Vitamin D deficiency , unspecified ICD-9: [...] Date Stop Date Sta tus Fill Instructions metoprolol succinate ER 50 mg tablet,extended release 24 hr RxNorm: 359413 1 Tablet(s) PO daily 05/12/2018 11/07/2018 Active lisinopril 20 mg-hyd rochlorothiazide 12.5 mg tablet RxNorm: 206212 TAKE 1 TABLET BY MOUTH ONCE DAILY 05/03/2018 No Stop Date Active Bactrim DS 800 mg-16 0 mg tablet RxNorm: 700121 1 Tablet(s) PO BID 04/20/2018 04/26/2018 Inactive mupirocin 2 % topica l ointment RxNorm: 857149 1 Application TOP BID 04/20/2018 04/29/2018 Inactive Diflucan 150 mg tablet RxNorm: 239764 1 Tablet(s) PO daily 11/02/2017 11/08/2017 Inactive Wellbutrin XL 300 mg 24 hr tablet, extended release RxNorm: 482126 TAKE 1 TABLET BY MOUTH ONCE DAILY 09/07/2017 10/13/2018 Inactive metoprolol succinate ER 50 mg tablet,extended release 24 hr RxNorm: 129568 1 Tablet(s) PO daily 07/20/2017 01/15/2018 Inactive amitriptyline 25 mg tablet RxNorm: 141606 Tablet(s) 2 TAB(S) PO HS 07/09/2017 10/13/2018 Inactive Bystolic 5 mg tablet RxNorm: 342201 1 Tablet(s) PO daily 06/09/2017 07/08/2017 Inactive metformin 500 mg tablet RxNorm: 178528 1/2 Tablet(s) PO QPM 05/12/2017 05/11/2017 Inactive Vitamin D2 50,000 un it capsule RxNorm: 147163 1 Capsule(s) PO QW 05/12/2017 10/13/2018 Inactive metformin 500 mg tablet RxNorm: 366932 1/2 Tablet(s) PO QPM 05/12/2017 10/13/2018 Inactive lisinopril 20 mg-hyd rochlorothiazide 12.5 mg tablet RxNorm: 242305 1 TABLET(S) PO DAILY 04/23/2017 10/19/2017 Inactive Wellbutrin XL 300 mg 24 hr tablet, extended release RxNorm: 911093 1 Tablet(s) PO daily 1 TABLET(S) PO DAILY 12/01/2016 05/29/2017 Inactive Wellbutrin XL 150 mg 24 hr tablet, extended release RxNorm: 124336 1 TABLET(S) PO DAILY 10/07/2016 11/30/2016 Inactive amitriptyline 25 mg tablet RxNorm: 004937 2 TAB(S) PO HS,INSTR: FOR PAIN AND SLEEP 09/24/2016 07/08/2017 In active amitriptyline 25 mg tablet RxNorm: 267870 2 Tablet(s) PO QHS 09/23/2016 09/23/2016 Inactive meloxicam 15 mg tablet RxNorm: 849636 1 TABLET(S) PO DAILY 09/08/2016 10/13/[address] on hold until pt needs it: she is going to take (2) 7.5mg until gone cetirizine 10 mg tablet RxNorm: 5134192 1 Tablet(s) PO daily 07/22/2016 No Stop Date Active lisinopril 20 mg-hyd rochlorothiazide 12.5 mg tablet RxNorm: 106423 1 TABLET(S) PO DAILY 06/20/2016 12/16/2016 Inactive Wellbutrin XL 150 mg 24 hr tablet, extended release RxNorm: 084890 1 TABLET(S) PO DAILY 05/12/2016 08/09/2016 Inactive Victoza 3-Jean 0.6 mg /0.1 mL (18 mg/3 mL) subcutaneous pen injector RxNorm: 659512 0.6 Milligram(s) SQ daily 03/21/2016 07/21/2016 Inactive NovoFine Plus 32 gau ge x 1/6" needle RxNorm: 1 Miscellaneous daily 03/21/2016 07/21/2016 Inactive NovoFine Plus 32 gau ge x 1/6" needle RxNorm: 1 Miscellaneous daily 03/21/2016 03/20/2016 Inactive Victoza 3-Jean 0.6 mg /0.1 mL (18 mg/3 mL) subcutaneous pen injector RxNorm: 417433 0.6 Milligram(s) SQ daily 03/21/2016 03/20/2016 Inactive Vitamin D2 50,000 un it capsule RxNorm: 443918 1 Capsule(s) PO QW 03/20/2016 06/17/2016 Inactive meloxicam 15 mg tablet RxNorm: 707070 1 Tablet(s) PO daily 03/20/2016 07/17/[address] on hold until pt needs it: she is going to take (2) 7.5mg until gone lisinopril 20 mg-hyd rochlorothiazide 12.5 mg tablet RxNorm: 511693 1 TABLET(S) PO DAILY 02/19/2016 05/18/2016 Inactive Wellbutrin XL 150 mg 24 hr tablet, extended release RxNorm: 168675 1 Tablet(s) PO daily 11/09/2015 03/07/2016 Inactive gabapentin 800 mg ta blet RxNorm: 281770 1 Tablet(s) PO TID 11/09/2015 06/08/2017 Inactive Lexapro 10 mg tablet RxNorm: 691090 1 TABLET(S) PO QPM 11/05/2015 11/08/2015 Inactive lisinopril 20 mg-hyd rochlorothiazide 12.5 mg tablet RxNorm: 621638 1 TABLET(S) PO DAILY 10/18/2015 01/15/2016 Inactive Cipro 500 mg tablet RxNorm: 370963 1 Tablet(s) PO BID 08/17/2015 08/23/2015 Inactive Lexapro 10 mg tablet RxNorm: 005155 1 Tablet(s) PO QPM 07/24/2015 10/21/2015 Inactive Vitamin D2 50,000 un it capsule RxNorm: 482339 1 Capsule(s) PO QW 07/24/2015 10/21/2015 Inactive gabapentin 300 mg ca psule RxNorm: 022740 2 Capsule(s) PO TID 07/16/2015 11/08/2015 Inactive lisinopril 20 mg-hyd rochlorothiazide 12.5 mg tablet RxNorm: 372071 1 TABLET(S) PO DAILY 04/09/2015 07/07/2015 Inactive naproxen 250 mg tablet RxNorm: 546568 1-2 Tablet(s) PO BID as needed for pain 03/08/2015 10/13/2018 In active Fetzima 40 mg capsul e,extended release RxNorm: 6477186 1 Capsule(s) PO adri y 12/22/2014 12/21/2014 In active Fetzima 40 mg capsul e,extended release RxNorm: 3772084 1 Capsule(s) PO adri y 12/22/2014 06/11/2015 In active Xanax 0.5 mg tablet RxNorm: 847224 1 Tablet(s) TAKE 1 TABLET BY MOUTH TWICE DAILY NEEDED FOR ANXIETY 11/17/2014 10/13/2018 Inactive lisinopril 20 mg-hyd rochlorothiazide 12.5 mg tablet RxNorm: 669352 1 Tablet(s) PO daily 11/17/2014 03/16/2015 Inactive Fetzima 20 mg capsul e,extended release RxNorm: 3336538 1 Capsule(s) PO adri y 11/17/2014 12/22/2014 In active Xanax 0.5 mg tablet RxNorm: 347665 1 Tablet(s) TAKE 1 TABLET BY MOUTH TWICE DAILY NEEDED FOR ANXIETY 10/27/2014 11/16/2014 Inactive Xanax 0.5 mg tablet RxNorm: 135446 TAKE 1 TABLET BY MOUTH TWICE DAILY NE EDED FOR ANXIETY 08/25/2014 10/23/2014 Inactive Brintellix 10 mg tablet RxNorm: 9110349 1 Tablet(s) PO daily 07/04/2014 07/03/2014 Inactive Brintellix 10 mg tablet RxNorm: 9738331 1 Tablet(s) PO daily 07/04/2014 11/16/2014 Inactive Brintellix 10 mg tablet RxNorm: 2743070 1 Tablet(s) PO daily 06/09/2014 07/03/2014 Inactive Contrave 8 mg-90 mg tablet,extended release RxNorm: 8991359 2 Tablet(s) PO BID 06/09/2014 09/06/2014 In active 1 tab q am x 1 week, then 1 tab BID x 1 week, then 2 q am and 1 q pm x 1 week then 2 tabs BID thereafter Contrave 8 mg-90 mg tablet,extended release RxNorm: 1754465 2 Tablet(s) PO BID 06/09/2014 06/08/2014 In active 1 tab q am x 1 week, then 1 tab BID x 1 week, then 2 q am and 1 q pm x 1 week then 2 tabs BID thereafter metformin 500 mg tablet RxNorm: 499018 1/2 Tablet(s) PO BID 05/18/2014 09/14/2014 Inactive Brintellix 10 mg tablet RxNorm: 3078086 2 Tablet(s) PO daily 05/16/2014 06/08/2014 Inactive Xanax 0.5 mg tablet RxNorm: 857666 1 Tablet(s) PO BID PRN 04/06/2014 08/25/2014 Inactive Wellbutrin XL 150 mg 24 hr tablet, extended release RxNorm: 458493 1 Tablet(s) PO daily 04/04/2014 05/15/2014 Inactive [SAVINGS FOR UNINSURED PATIENTS -- BIN:0 [id number], PCN: [id number], Group: [employer]KEN[employer], ID# [id number], Process claim through [employer], for questions: . THIS IS NOT INSURANCE.] pantoprazole 40 mg t ablet,delayed release RxNorm: 899420 1 Tablet(s) PO daily 12/01/2013 03/30/2014 In active Vitamin D3 2,000 uni t tablet RxNorm: 200499 1 Tablet(s) PO daily 10/10/2013 No Stop Date Active Vitamin D2 50,000 un it capsule RxNorm: 420364 1 Capsule(s) PO QW 10/10/2013 11/16/2014 Inactive vitamin d 50,000 units weekly x 12 weeks then 5000 units daily thereafter escitalopram 20 mg t ablet RxNorm: 828760 1 Tablet(s) PO daily 10/10/2013 04/04/2014 Inactive trazodone 100 mg tablet RxNorm: 490152 1 TABLET(S) PO QHS 09/19/2013 01/16/2014 Inactive trazodone 100 mg tablet RxNorm: 931637 1 Tablet(s) PO QHS 08/16/2013 09/14/2013 Inactive metformin 500 mg tablet RxNorm: 708050 1 Tablet(s) PO BID 08/16/2013 04/03/2014 Inactive Diflucan 150 mg tablet RxNorm: 755730 1 Tablet(s) PO daily 08/16/2013 08/22/2013 Inactive metformin 500 mg tablet RxNorm: 992109 1/2 Tablet(s) PO BID 1/2 tab in the even ing x 1 week then 1/2 tab twice daily 04/26/2013 08/15/2013 Inactive Vitamin D2 50,000 un it capsule RxNorm: 552602 1 Capsule(s) PO QW 04/21/2013 10/09/2013 Inactive vitamin d 50,000 units weekly x 12 weeks then 5000 units daily thereafter Lexapro 10 mg tablet RxNorm: 902687 1 Tablet(s) PO daily 04/14/2013 10/09/2013 Inactive Slow Fe oral RxNorm: 74272 oral No Start Date Active vitamin B complex ca psule RxNorm: 1 Capsule(s) PO daily No Start Date Active lisinopril 20 mg-hyd rochlorothiazide 12.5 mg tablet RxNorm: 039212 1 Tablet(s) PO daily No Start Date 11/16/2014 Inactive gabapentin 300 mg ca psule RxNorm: 764958 1 Capsule(s) PO TID No Start Date 07/15/2015 Inactive cetirizine 10 mg tablet RxNorm: 0993923 1 Tablet(s) PO daily No Start Date 03/05/2016 Inactive tizanidine 2 mg tablet RxNorm: 613746 1 Tablet(s) PO TID No Start Date 10/13/2018 Inactive Vitamin D2 50,000 un it capsule RxNorm: 162652 1 Capsule(s) PO QW No Start Date 04/20/2013 Inactive pantoprazole 40 mg t ablet,delayed release RxNorm: 500736 1 Tablet(s) PO daily No Start Date 10/09/2013 Inactive amitriptyline 10 mg tablet RxNorm: 750954 1 Tablet(s) PO QHS No Start Date 09/22/2016 Inactive meloxicam 7.5 mg tablet RxNorm: 499067 1 Tablet(s) PO daily No Start Date 03/19/2016 Inactive ibuprofen 200 mg tablet RxNorm: 377713 3 Tablet(s) PO TID No Start Date 11/30/2013 Inactive diclofenac 75 mg-mis oprostol 200 mcg tablet,immediate,delayed release RxNorm: 7742129 1 Tablet(s) PO BID No Start Date 10/13/2018 Inactive methocarbamol 500 mg tablet RxNorm: 604906 1 Tablet(s) PO TID No Start Date 10/13/2018 Inactive Advair Diskus 250 mc g-50 mcg/dose powder for inhalation RxNorm: 9574944 2 INH daily No Start Date 07/23/2015 Inactive Medication Administered No Medication Administered data Immunizations Vaccine Codes Date Status Influenza CVX: 141 12/06 completed Influenza CVX: 141 12/07 completed Influenza CVX: 141 12/27 completed Assessments Condition Codes Effectiv e Dates Anemia, unspecified ICD-10: D64.9 ICD-9: 285.9 10/14/2018 Cervicalgia ICD-10: M54.2 ICD-9: 723.1 10/14/2018 Low back pain ICD-10: M54.5 ICD-9: 724.2 10/14/2018 Essential (primary) hypertension ICD -10: I10 ICD-9: 401.9 10/14/2018 Type 2 diabetes mellitus with hyperglycemia [...] c) ICD- 10: D50.0 ICD-9: 280.0 10/13/2017 Major depressive disorder, recurrent, moderate ICD-10: F33.1 ICD-9: 296.32 10/13/2017 Vitamin D deficiency, unspecified IC D-10: [...] 10/10/2013 Laboratory exam ordered as part of [facility] general medical examination ICD-9: V72.62 10/06/2013 Swelling of extremity ICD-9: 729.81 09/15/2013 JOINT PAIN-UNSPEC ICD-9: 719.40 09/15/2013 Pleuritic chest pain ICD-9: 786.52 09/15/2013 Well woman exam with routine gynecological exam ICD-9: V72.31 09/15/2013 Nasal septal ulcer ICD-9: 478.19 09/15/2013 ANEMIA ICD-9: 285.9 08/07 DM W/O COMPLICATION TYPE II, UNCONTROLLED SNOMED: 05093822 ICD-9: 250.02 08/16/2013 Urinary tract infection ICD-9: 599.0 08/16/2013 Elevated alkaline phosphatase level ICD-9: 790.5 04/14/2013 Elevated glucose ICD-9: 790.29 04/14/2013 Elevated blood pressure ICD-9: 796.2 04/14/2013 Reason For Visit Reason For Visit Effective Dates Notes neck pain 10/14/2018 cellulitis 04/22/2018 cellulitis 04/20/2018 [...] Observation Code Item Item Code Result Date Tibc Ord40 Iron 36 ug/dl 10/15/2018 Tibc Ord40 UIBC 402 ug/dL 10/15/2018 Tibc Ord40 TIBC 438 ug/dL 10/15/2018 Tibc Ord40 Fe-%Sat 8.2 % 10/15/2018 Comp Metabolic Jvk099 NA 139 mEq/L 10/14/2018 Comp Metabolic Onk084 K 4.1 mEq/L 10/14/2018 Comp Metabolic Fmj256 CL 103 mEq/L 10/14/2018 Comp Metabolic Aeh372 CO2 27.0 mEq/L 10/14/2018 Comp Metabolic Sel265 AN ION GAP 13 10/14/2018 Comp Metabolic Gcm314 GL UCOSE 131 mg/dL 10/14/2018 Comp Metabolic Jui377 Cr eat 0.7 mg/dL 10/14/2018 Comp Metabolic Gzu939 eG FR 98 ml/min/1.73m2 10/14 Comp Metabolic Ejy978 BUN 12 mg/dL 10/14/2018 Comp Metabolic Gfr881 B/ C Ratio 17.9 Ratio 10/14/2018 Comp Metabolic Ryb281 CA LCIUM 9.0 mg/dL 10/14/2018 Comp Metabolic Gpj649 AL K PHOS 127 U/L 10/14/2018 Comp Metabolic Wsw642 T(SGOT) 19 U/L 10/14/2018 Comp Metabolic Fvz099 AL T(SGPT) 17 U/L 10/14/2018 Comp Metabolic Xdv458 BI LI T 0.3 mg/dL 10/14/2018 Comp Metabolic Muw809 AL BUMIN 4.1 g/dL 10/14/2018 Comp Metabolic Htj414 TP RO 6.8 g/dL 10/14/2018 Comp Metabolic Vys644 GL OB 2.7 g/dL 10/14/2018 Comp Metabolic Erl326 A/ G Ratio 1.5 Ratio 10/14/2018 Comp Metabolic Ild995 Os mo 279 mOsmo 10/14/2018 Cbc With [...] 24.6 pg 10/14/2018 Cbc With Differential Ord2 [place]% 12.3 % 10/14/2018 Cbc With Differential Ord2 [...] 1.70 K/ul 10/14/2018 Cbc With Differential Ord2 [place] ABS# 0.9 K/ul 10/14/2018 Cbc With Differential Ord2 Eos ABS# 0.1 K/ul 10/14/2018 Cbc With Differential Ord2 Baso ABS# 0.1 K/ul 10/14/2018 %Hba1C Lfh552 % HbA1c 04633-2 6.4 % 10/14/2018 %Hba1C Nom105 Gluc Ave 137 mg/dL 10/14/2018 Tsh Ord6 [...] 24.3 pg 10/13/2017 Cbc With Differential Ord2 [place]% 10.1 % 10/13/2017 Cbc With Differential Ord2 [...] 1.71 K/ul 10/13/2017 Cbc With Differential Ord2 [place] ABS# 0.7 K/ul 10/13/2017 Cbc With Differential Ord2 Eos ABS# 0.1 K/ul 10/13/2017 Cbc With Differential Ord2 Baso ABS# 0.0 K/ul 10/13/2017 %Hba1C Wmp748 % HbA1c 15329-2 6.3 % 10/13/2017 %Hba1C Rve770 Gluc Ave 134 mg/dL 10/13/2017 Comp Metabolic Pla812 NA 144 mEq/L 10/13/2017 Comp Metabolic Oba794 K 4.2 mEq/L 10/13/2017 Comp Metabolic Pjf307 CL 110 mEq/L 10/13/2017 Comp Metabolic Asd650 CO2 25.0 mEq/L 10/13/2017 Comp Metabolic Pes438 AN ION GAP 13 10/13/2017 Comp Metabolic Rbq877 GL UCOSE 99 mg/dL 10/13/2017 Comp Metabolic Dux398 Cr eat 0.6 mg/dL 10/13/2017 Comp Metabolic Yiz609 eG FR 116 ml/min/1.73m2 09/2017 Comp Metabolic Evm341 BUN 11 mg/dL 10/13/2017 Comp Metabolic Ghn752 B/ C Ratio 19.0 Ratio 10/13/2017 Comp Metabolic Stq079 CA LCIUM 9.1 mg/dL 10/13/2017 Comp Metabolic Dah991 AL K PHOS 134 U/L 10/13/2017 Comp Metabolic Sni641 T(SGOT) 18 U/L 10/13/2017 Comp Metabolic Cwx365 AL T(SGPT) 17 U/L 10/13/2017 Comp Metabolic Wyj292 BI LI T 0.4 mg/dL 10/13/2017 Comp Metabolic Aqf171 AL BUMIN 4.0 g/dL 10/13/2017 Comp Metabolic Vjp405 TP RO 6.6 g/dL 10/13/2017 Comp Metabolic Ruz208 GL OB 2.6 g/dL 10/13/2017 Comp Metabolic Npv809 A/ G Ratio 1.5 Ratio 10/13/2017 Comp Metabolic Ayd761 Os mo 286 mOsmo 10/13/2017 Vitamin D 25 Oh Ahn0988 VITAMIN D, 25 HYDROXY 55.13 ng/mL 10/13/2017 I Fecal Occult Blood Ovq0148 IFOB Negative 05/13/2017 B12 Kvk796 B12 427.00 pg/ml 05/12/2017 Tibc Ord40 Iron 35 ug/dl 05/12/2017 Tibc Ord40 UIBC 412 ug/dL 05/12/2017 Tibc Ord40 TIBC 447 ug/dL 05/12/2017 Tibc Ord40 Fe-%Sat 7.8 % 05/12/2017 Ferritin Ord22 FERRITIN 7.2 ng/mL 05/12/2017 Comp Metabolic Wph511 NA 142 mEq/L 05/12/2017 Comp Metabolic Sah684 K 4.0 mEq/L 05/12/2017 Comp Metabolic Nbf664 CL 106 mEq/L 05/12/2017 Comp Metabolic Wsv020 CO2 26.0 mEq/L 05/12/2017 Comp Metabolic Qxs575 AN ION GAP 14 05/12/2017 Comp Metabolic Qtn919 GL UCOSE 137 mg/dL 05/12/2017 Comp Metabolic Ppp767 Cr eat 0.6 mg/dL 05/12/2017 Comp Metabolic Cok240 eG FR 116 ml/min/1.73m2 08/2017 Comp Metabolic Znu923 BUN 9 mg/dL 05/12/2017 Comp Metabolic Fvf185 B/ C Ratio 15.5 Ratio 05/12/2017 Comp Metabolic Yrt197 CA LCIUM 8.8 mg/dL 05/12/2017 Comp Metabolic Hmc974 AL K PHOS 171 U/L 05/12/2017 Comp Metabolic Prn704 T(SGOT) 18 U/L 05/12/2017 Comp Metabolic Ilx566 AL T(SGPT) 17 U/L 05/12/2017 Comp Metabolic Xoi452 BI LI T 0.2 mg/dL 05/12/2017 Comp Metabolic Fgu272 AL BUMIN 3.9 g/dL 05/12/2017 Comp Metabolic Ccv695 TP RO 6.5 g/dL 05/12/2017 Comp Metabolic Tzv758 GL OB 2.6 g/dL 05/12/2017 Comp Metabolic Nbu926 A/ G Ratio 1.5 Ratio 05/12/2017 Comp Metabolic Faz589 Os mo 284 mOsmo 05/12/2017 Iron Ord72 Iron 33 ug/dl 05/12/2017 Vitamin D 25 Oh Dyt4207 VITAMIN D, 25 HYDROXY 31.02 ng/mL 05/12/2017 [...] 22.0 pg 05/12/2017 Cbc With Differential Ord2 [place]% 8.1 % 05/12/2017 Cbc With Differential Ord2 [...] 1.54 K/ul 05/12/2017 Cbc With Differential Ord2 [place] ABS# 0.6 K/ul 05/12/2017 Cbc With Differential Ord2 Eos ABS# 0.2 K/ul 05/12/2017 Cbc With Differential Ord2 Baso ABS# 0.0 K/ul 05/12/2017 %Hba1C Rki413 % HbA1c 13406-6 6.6 % 05/12/2017 %Hba1C Gew836 Gluc Ave 143 mg/dL 05/12/2017 Tsh Ord6 TSH (3rd IS) 3.18 uIU/mL 05/12/2017 Lymes Disease Total Antibodies With Western Blot Refle x [id number] B. BURGDORFERI, IGG/IGM 0.048 12/08/2016 Lymes Disease Total Antibodies With Western Blot Refle x [id number] 12/08/2016 Alena Reflex Profile [id number] ALENA ([place]) SCREEN NONE DETECTED 017 Ehrlichia Chaffeensis Antibody Igm [id number] EHRLICHIA CHAFFEENSIS IGM < 1:16 12/05/2016 Metzger Spotted Fever Igg/Igm 03610 3 GUME MT SPOTTED FEVER IGM EIA . 12/05/2016 Metzger Spotted Fever Igg/Igm 42097 3 RMSF, IGM 0.43 index 12/05/2016 Metzger Spotted Fever Igg/Igm 98825 3 GUME MT SPOTTED FEVER IGG EIA FLEX . 12/05/2016 Metzger Spotted Fever Igg/Igm 93120 3 RMSF, IGG SCREEN-FLEX Negative 12/05/2016 Ehrlichia Chaffeensis Antibody Igg [id number] EHRLICHIA CHAFFEENSIS IGG <1:64 12/05/2016 Tibc Ord40 Iron 37 ug/dl 12/02/2016 Tibc Ord40 UIBC 372 ug/dL 12/02/2016 Tibc Ord40 TIBC 409 ug/dL 12/02/2016 Tibc Ord40 Fe-%Sat 9.0 % 12/02/2016 Ferritin Ord22 FERRITIN 13.9 ng/mL 12/02/2016 B12 Aoh299 B12 344.00 pg/ml 12/02/2016 %Hba1C Uka907 % HbA1c 47930-7 6.1 % 12/01/2016 %Hba1C Mry081 Gluc Ave 128 mg/dL 12/01/2016 Cbc With [...] 26.2 pg 12/01/2016 Cbc With Differential Ord2 [place]% 8.8 % 12/01/2016 Cbc With Differential Ord2 [...] 1.75 K/ul 12/01/2016 Cbc With Differential Ord2 [place] ABS# 0.6 K/ul 12/01/2016 Cbc With Differential Ord2 Eos ABS# 0.4 K/ul 12/01/2016 Cbc With Differential Ord2 Baso ABS# 0.1 K/ul 12/01/2016 Tsh Ord6 hTSH II 1.80 uIU/mL 12/01/2016 C-Reactive Protein Qnt Crqnt CRP 1.5 mg/dl 12/01/2016 Sed Rate Ord21 ESR 14 mm/hr 12/01/2016 Ra Factor Nam947 RA FACT OR <10 IU/ml 12/01/2016 Vitamin D 25 Oh Jkn6297 VITAMIN D, 25 HYDROXY 30.98 ng/mL 12/01/2016 Comp Metabolic Exo422 NA 140 mEq/L 12/01/2016 Comp Metabolic Arb147 K 3.9 mEq/L 12/01/2016 Comp Metabolic Jve444 CL 106 mEq/L 12/01/2016 Comp Metabolic Val929 CO2 26.0 mEq/L 12/01/2016 Comp Metabolic Meq210 AN ION GAP 12 12/01/2016 Comp Metabolic Mnv859 GL UCOSE 147 mg/dL 12/01/2016 Comp Metabolic Vow329 Cr eat 0.6 mg/dL 12/01/2016 Comp Metabolic Xxy565 eG FR 114 ml/min/1.73m2 11/08 Comp Metabolic Aof811 BUN 11 mg/dL 12/01/2016 Comp Metabolic Xii679 B/ C Ratio 18.6 Ratio 12/01/2016 Comp Metabolic Aqt697 CA LCIUM 8.8 mg/dL 12/01/2016 Comp Metabolic Mcz956 AL K PHOS 138 U/L 12/01/2016 Comp Metabolic Tog848 T(SGOT) 34 U/L 12/01/2016 Comp Metabolic Jjr336 AL T(SGPT) 26 U/L 12/01/2016 Comp Metabolic Zrd951 BI LI T 0.3 mg/dL 12/01/2016 Comp Metabolic Vhg386 AL BUMIN 3.8 g/dL 12/01/2016 Comp Metabolic Kum202 TP RO 6.2 g/dL 12/01/2016 Comp Metabolic Mgj236 GL OB 2.4 g/dL 12/01/2016 Comp Metabolic Hct937 A/ G Ratio 1.6 Ratio 12/01/2016 Comp Metabolic Aot233 Os mo 281 mOsmo 12/01/2016 %Hba1C Bup224 % HbA1c 56214-4 6.3 % 08/05/2016 %Hba1C Mpq070 Gluc Ave 134 mg/dL 08/05/2016 Alena [id number] ALENA ([place]) Joshua CHADWICK NONE DETECTED 017 Vitamin D 25 Oh Cnu3192 VITAMIN D, 25 HYDROXY 32.26 ng/mL 03/07/2016 Ra Factor Qav152 RA FACT OR <10 IU/ml 03/07/2016 C-Reactive Protein Qnt Crqnt CRP 2.0 mg/dl 03/06/2016 Sed Rate Ord21 ESR 32 mm/hr 03/06/2016 %Hba1C Hbg421 % HbA1c 07582-9 6.3 % 03/06/2016 %Hba1C Stk383 Gluc Ave 134 mg/dL 03/06/2016 Comp Metabolic Wmt149 NA 138 mEq/L 03/06/2016 Comp Metabolic Sjc393 K 4.3 mEq/L 03/06/2016 Comp Metabolic Pph598 CL 103 mEq/L 03/06/2016 Comp Metabolic Ypy746 CO2 23.0 mEq/L 03/06/2016 Comp Metabolic Qtf762 AN ION GAP 16 03/06/2016 Comp Metabolic Wgl797 GL UCOSE 148 mg/dL 03/06/2016 Comp Metabolic Vkk102 Cr eat 0.6 mg/dL 03/06/2016 Comp Metabolic Txu918 eG FR 104 ml/min/1.73m2 02/07 Comp Metabolic Izf869 BUN 13 mg/dL 03/06/2016 Comp Metabolic Ret789 B/ C Ratio 20.3 Ratio 03/06/2016 Comp Metabolic Qpp369 CA LCIUM 9.7 mg/dL 03/06/2016 Comp Metabolic Krq397 AL K PHOS 146 U/L 03/06/2016 Comp Metabolic Wbh544 T(SGOT) 25 U/L 03/06/2016 Comp Metabolic Jik336 AL T(SGPT) 25 U/L 03/06/2016 Comp Metabolic Igx904 BI LI T 0.3 mg/dL 03/06/2016 Comp Metabolic Yec880 AL BUMIN 4.1 g/dL 03/06/2016 Comp Metabolic Ece964 TP RO 6.9 g/dL 03/06/2016 Comp Metabolic Adp221 GL OB 2.8 g/dL 03/06/2016 Comp Metabolic Tue924 A/ G Ratio 1.5 Ratio 03/06/2016 Comp Metabolic Eql065 Os mo 279 mOsmo 03/06/2016 Cbc With [...] 27.1 pg 03/06/2016 Cbc With Differential Ord2 [place]% 9.2 % 03/06/2016 Cbc With Differential Ord2 [...] 1.35 K/ul 03/06/2016 Cbc With Differential Ord2 [place] ABS# 0.5 K/ul 03/06/2016 Cbc With Differential Ord2 Eos ABS# 0.2 K/ul 03/06/2016 Cbc With Differential Ord2 Baso ABS# 0.1 K/ul 03/06/2016 Tsh Ord6 hTSH II 3.61 uIU/mL 03/06/2016 Culture Urine [id number] URI NE CULTURE SEE NOTES 08/20/2015 Culture Urine [id number] Con tinued Results 08/20/2015 Urine Culture Ucult Comp lete Growth of aerobe sent to ref lab 08/18/2015 Vitamin D 25 Oh Wha1272 VITAMIN D, 25 HYDROXY 24.39 ng/mL 07/18/2015 Comp Metabolic Lmu611 NA 136 mEq/L 07/17/2015 Comp Metabolic Usu453 K 4.0 mEq/L 07/17/2015 Comp Metabolic Ndv039 CL 100 mEq/L 07/17/2015 Comp Metabolic Csl875 CO2 27.0 mEq/L 07/17/2015 Comp Metabolic Dqn365 AN ION GAP 13 07/17/2015 Comp Metabolic Qvt385 GL UCOSE 121 mg/dL 07/17/2015 Comp Metabolic Wbf787 Cr eat 0.7 mg/dL 07/17/2015 Comp Metabolic Yzd195 eG FR 96 ml/min/1.73m2 07/16 Comp Metabolic Zwh566 BUN 10 mg/dL 07/17/2015 Comp Metabolic Pwd646 B/ C Ratio 14.5 Ratio 07/17/2015 Comp Metabolic Cwm628 CA LCIUM 8.9 mg/dL 07/17/2015 Comp Metabolic Yob588 AL K PHOS 146 U/L 07/17/2015 Comp Metabolic Mte134 T(SGOT) 20 U/L 07/17/2015 Comp Metabolic Ogj572 AL T(SGPT) 22 U/L 07/17/2015 Comp Metabolic Bbp625 BI LI T 0.4 mg/dL 07/17/2015 Comp Metabolic Tit457 AL BUMIN 4.0 g/dL 07/17/2015 Comp Metabolic Szi445 TP RO 6.6 g/dL 07/17/2015 Comp Metabolic Abh558 GL OB 2.6 g/dL 07/17/2015 Comp Metabolic Opr248 A/ G Ratio 1.6 Ratio 07/17/2015 Comp Metabolic Zab468 Os mo 272 mOsmo 07/17/2015 Sed Rate [...] 26.1 pg 07/17/2015 Cbc With Differential Ord2 [place]% 12.6 % 07/17/2015 Cbc With Differential Ord2 [...] 1.25 K/ul 07/17/2015 Cbc With Differential Ord2 [place] ABS# 0.9 K/ul 07/17/2015 Cbc With Differential [...] Crqnt CRP 2.9 mg/dl 07/17/2015 GFR CALC [id number] GFR AA >60 ML/MIN 10/06/2013 GFR CALC [id number] GFR NON -AA >60 ML/MIN 10/06/2013 CHEM 14 [id number] AST 34 U/L 10/06/2013 CHEM 14 [id number] ALT 30 IU/L 10/06/2013 CHEM 14 6685039 BUN 11 MG/DL 10/06/2013 CHEM 14 1794354 ALBUMIN 4.4 GM/DL 10/06/2013 CHEM 14 9831781 CHLORIDE 107 MMOL/L 10/06/2013 CHEM 14 2894618 BILI TOT 0.4 MG/DL 10/06/2013 CHEM 14 8606626 ALK PHOS 133 U/L 10/06/2013 CHEM 14 6883061 SODIUM 140 MMOL/L 10/06/2013 CHEM 14 7133886 CREATINI NE 0.67 MG/DL 10/06/2013 CHEM 14 5621462 CALCIUM 9.3 MG/DL 10/06/2013 CHEM 14 7653394 POTASSIUM 4.0 MMOL/L 10/06/2013 CHEM 14 1640968 PROT TOT 7.1 GM/DL 10/06/2013 CHEM 14 7949952 GLUCOSE 108 MG/DL 10/06/2013 CHEM 14 3220524 BICARB 25 MMOL/L 10/06/2013 CHEM 14 2269437 ANION GAP 8 MEQ/L 10/06/2013 VIT D TOTL [id number] VIT D TOTL 37 NG/ML 10/06/2013 GC/CHL PRB [id number] CHLM PROBE NEG 09/21/2013 GC/CHL PRB [id number] GC AR OBE NEG 09/21/2013 DNA AB [id number] DNA AB 36 IU/ML 09/17/2013 RA FACTOR [id number] RA FAC TOR <20.0 IU/ML 09/16/2013 SM MUSC AB [id number] SM MU SC AB <1:20 09/16/2013 CARDIO G/M [id number] CARDI O IGG 1.7 GPLU 09/16/2013 CARDIO G/M [id number] CARDI O IGM 4.8 MPLU 09/16/2013 ALENA SCR [id number] ALENA SCR <1:80 09/16/2013 CRP [id number] CRP 1.1 MG/DL 09/15/2013 ESR 1985658 ESR 22 MM/HR 09/15/2013 CBC 6791013 WBC 5.5 10e9/L 04/26/2013 CBC 6954984 RBC 4.89 10e12/L 04/26/2013 CBC 7928890 HGB 12.8 g/dL 04/26/2013 CBC 5238826 HCT DET 39.5 % 04/26/2013 CBC 5953978 MCV 80.8 fL 04/26/2013 CBC 3064271 MCH 26.2 pg 04/26/2013 CBC 1061287 MCHC 32.4 g/dL 04/26/2013 CBC 3877506 PLT 299 10e9/L 04/26/2013 CBC 1062879 MPV 10.9 fL 04/26/2013 CBC 3497696 WAN % 59.0 % 04/26/2013 CBC 7300732 LY % 29.6 % 04/26/2013 CBC 6552311 MON % 9.1 % 04/26/2013 CBC 9020404 EOS % 1.8 % 04/26/2013 CBC 1586050 BASO % 0.5 % 04/26/2013 CBC 2876666 RDW 13.9 % 04/26/2013 CBC 8224662 ABS WAN 3.25 10e9/L 04/26/2013 CBC 2562826 ABS LYMPH 1.63 10e9/L 04/26/2013 CBC 6201048 ABS MONO 0.50 10e9/L 04/26/2013 CBC 4173543 ABS EOS 0.10 10e9/L 04/26/2013 CBC 3796705 ABS BASO 0.03 10e9/L 04/26/2013 CBC 1246751 RDW-SD 39.9 fL 04/26/2013 URINALYSIS NONAUTO W/O SCOPE 28886 Specific [place] 1.020 DateTime(Free Text in Apr) URINALYSIS NONAUTO W/O SCOPE 98118 PH 6.0 DateTime(Free Rik t in Apr) URINALYSIS NONAUTO W/O SCOPE 66997 GLUCOSE neg DateTime(Free Rik t in Aprima) URINALYSIS NONAUTO W/O SCOPE 25708 Protein neg DateTime(Free Rik t in Aprima) URINALYSIS NONAUTO W/O SCOPE 61080 Blood neg DateTime(Free Rik t in Aprima) URINALYSIS NONAUTO W/O SCOPE 72258 Bilirubin neg DateTime(Free Rik t in Apr) URINALYSIS NONAUTO W/O SCOPE 33720 Ketones neg DateTime(Free Rik t in Apr) URINALYSIS NONAUTO W/O SCOPE 22217 Urobilinogen neg DateTime(Free Text in ) URINALYSIS NONAUTO W/O SCOPE 20133 Nitrite neg DateTime(Free Rik t in ) URINALYSIS NONAUTO W/O SCOPE 85435 Leukocytes 1+ DateTime(Free Text in ) Review of Systems System Result Effective Dates Musculoskeletal back pain 10/14/2018 Constitutional No recent [...] No alteration of consciousness 10/13/2017 Psychiatric anxiety 09/2017 Psychiatric depression 0 10/13/2017 Endocrine No [...] 06/09/2017 Psychiatric depression 0 05/12/2017 Psychiatric anxiety 0308/2017 Constitutional No recent illness 05/12/2017 Constitutional No [...] No alteration of consciousness 11/09/2015 Psychiatric anxiety 04/2015 Psychiatric depression 0 11/09/2015 Ears/Nose/Throat/Neck No [...] No alteration of consciousness 07/16/2015 Psychiatric anxiety 05/0 11/2015 Psychiatric depression 0 07/16/2015 Constitutional No recent [...] distress 09/15/2013 None Full Exam - General 1994 Eyes conjunctiva/eyelids Overall: conjunctiva clear 09/15/2013 None [...] Date URINALYSIS NONAUTO W /O SCOPE CPT-4: 18141 11/02/2017 OCCULT BLOOD FECES CPT- 4: 12864 12/08/2016 IMMUNIZATION ADMIN CPT- 4: 11785 12/07/2015 FLU VACC 4 AMBER 3 YRS PLUS IM SNOMED CT: [id number] CPT-4: 74102 12/07/2015 URINALYSIS NONAUTO W /O SCOPE CPT-4: 44970 08/17/2015 CHEM 14 (COMPREHEN M ETABOLIC PANEL) CPT-4: 57721 10/06/2013 VIT D TOTL (VITAMIN D 25 HYDROXY) CPT-4: 58695 10/06/2013 CRP (C-REACTIVE PROT EIN) CPT-4: 79289 09/15/2013 ESR (RBC SED RATE AU TOMATED) CPT-4: 89209 09/15/2013 ROUTINE VENIPUNCTURE CPT-4: 96426 09/15/2013 URINALYSIS NONAUTO W /O SCOPE CPT-4: 23958 08/16/2013 C URINE RT CPT-4: 4505718 08/16/2013 C URINE RT (URINE CU LTURE/COLONY COUNT) CPT-4: 06810 08/16/2013 ROUTINE VENIPUNCTURE CPT-4: 29877 04/26/2013 Vital Signs Date Vital 10/14/2018 Blood Pressure 1: 140/82 Code: 8480-6 BMI: 37.9 Code: 25779-4 Heart Rate 1: 80 bpm Height: 5'5" SpO2: 96% Weight: 228 lbs 04/22/2018 Heigh t: Weight: 04/20/2018 Blood Pressure 1: 150/90 Code: 8480-6 Heart Rate 1: 104 bpm Height: SpO2: 95% Weight: 11/02/2017 Blood Pressure 1: 130/76 Code: 8480-6 BMI: 37.6 Code: 09110-9 Heart Rate 1: 68 bpm Height: 5'5" SpO2: 98% Weight: 226 lbs 10/13/2017 Blood Pressure 1: 140/86 Code: 8480-6 BMI: 37.4 Code: 32424-5 Heart Rate 1: 78 bpm Height: 5'5" SpO2: 98% Weight: 225 lbs 07/20/2017 Blood Pressure 1: 128/80 Code: 8480-6 BMI: 39.1 Code: 18290-1 Heart Rate 1: 75 bpm Height: 5'5" SpO2: 98% Weight: 235 lbs 06/09/2017 Blood Pressure 1: 150/92 Code: 8480-6 BMI: 39.1 Code: 27590-7 Heart Rate 1: 106 bpm Height: 5'5" SpO2: 98% Weight: 235 lbs 05/12/2017 Blood Pressure 1: 144/68 Code: 8480-6 BMI: 38.9 Code: 40799-1 Heart Rate 1: 89 bpm Height: 5'5" SpO2: 98% Weight: 234 lbs 12/01/2016 Blood Pressure 1: 140/88 Code: 8480-6 BMI: 39.6 Code: 81289-8 Heart Rate 1: 101 bpm Height: 5'5" SpO2: 97% Weight: 238 lbs 08/05/2016 Blood Pressure 1: 134/82 Code: 8480-6 Heart Rate 1: 113 bpm Height: 5'5" SpO2: 98% 07/22/2016 Blood Pressure 1: 142/84 Code: 8480-6 BMI: 39.6 Code: 86753-5 Heart Rate 1: 103 bpm Height: 5'5" SpO2: 97% Weight: 238 lbs 03/06/2016 Blood Pressure 1: 138/86 Code: 8480-6 Heart Rate 1: 100 bpm SpO2: 96% Weight: 246 lbs 12/07/2015 Blood Pressure 1: 140/78 Code: 8480-6 BMI: 40.8 Code: 58027-4 Heart Rate 1: 97 bpm Height: 5'6" SpO2: 98% Weight: 250 lbs 11/09/2015 Blood Pressure 1: 118/84 Code: 8480-6 BMI: 40.7 Code: 72590-9 Heart Rate 1: 85 bpm Height: 5'6" SpO2: 98% Weight: 249 lbs 08/17/2015 Blood Pressure 1: 122/82 Code: 8480-6 BMI: 39.4 Code: 87068-4 Heart Rate 1: 86 bpm Height: 5'6" SpO2: 95% Weight: 241 lbs 07/24/2015 Blood Pressure 1: 118/76 Code: 8480-6 BMI: 39.9 Code: 94693-7 Heart Rate 1: 97 bpm Height: 5'6" SpO2: 96% Weight: 244 lbs 07/16/2015 Blood Pressure 1: 158/80 Code: 8480-6 Blood Pressure 1: 120/86 Code: 8480-6 Heart Rate 1: 105 bpm Height: 5'6" SpO2: 98% Weight: 06/12/2015 Blood Pressure 1: 128/82 Code: 8480-6 BMI: 39.9 Code: 08145-1 Heart Rate 1: 89 bpm Height: 5'6" SpO2: 98% Weight: 244 lbs 03/08/2015 Blood Pressure 1: 130/86 Code: 8480-6 Heart Rate 1: 98 bpm Height: 5'6" SpO2: 97% Weight: 12/29/2014 Blood Pressure 1: 138/88 Code: 8480-6 BMI: 39.2 Code: 62461-7 Heart Rate 1: 109 bpm Height: 5'6" SpO2: 97% Weight: 240 lbs 11/17/2014 Blood Pressure 1: 170/98 Code: 8480-6 BMI: 39.7 Code: 73785-4 Heart Rate 1: 92 bpm Height: 5'6" SpO2: 98% Weight: 243 lbs 05/16/2014 Blood Pressure 1: 130/82 Code: 8480-6 BMI: 39.2 Code: 54564-8 Heart Rate 1: 88 bpm Height: 5'6" Weight: 240 lbs 04/04/2014 Blood Pressure 1: 146/92 Code: 8480-6 Blood Pressure 2: 136/86 Code: 8480-6 BMI: 39.9 Code: 90572-0 Heart Rate 1: 68 bpm Height: 5'6" Weight: 244 lbs 12/01/2013 Blood Pressure 1: 142/80 Code: 8480-6 BMI: 38.4 Code: 24150-8 Heart Rate 1: 80 bpm Height: 5'6" Weight: 235 lbs 10/10/2013 Blood Pressure 1: 128/88 Code: 8480-6 BMI: 38.7 Code: 37536-8 Heart Rate 1: 88 bpm Height: 5'6" Weight: 237 lbs 09/15/2013 Blood Pressure 1: 112/74 Code: 8480-6 BMI: 39.0 Code: 30367-8 Heart Rate 1: 80 bpm Height: 5'6" Weight: 239 lbs 08/16/2013 Blood Pressure 1: 124/64 Code: 8480-6 BMI: 39.0 Code: 66002-7 Heart Rate 1: 88 bpm Height: 5'6" Weight: 239 lbs 06/06/2013 Blood Pressure 1: 120/72 Code: 8480-6 BMI: 37.9 Code: 55670-2 Heart Rate 1: 84 bpm Height: 5'6" Weight: 232 lbs 04/26/2013 Blood Pressure 1: 148/86 Code: 8480-6 BMI: 37.7 Code: 79009-3 Heart Rate 1: 84 bpm Height: 5'6" Weight: 231 lbs 04/14/2013 Blood Pressure 1: 148/92 Code: 8480-6 BMI: 38.2 Code: 13545-7 Heart Rate 1: 88 bpm Height: 5'6" Respiratory Rate: 16 bpm Weight: 234 lbs Functional Status No Functional Status data History of Present Illness Symptom Name Status Resu lt Effective Date Notes Onset and Resolution o ngoing 10/14/2018 None [...] chr onic 10/13/2017 None hypertension Quality giorgio marshall hypertension 10/13/2017 None hypertension Onset and Resolution [...] Factors medication 07/20/2017 None hypertension Quality giorgio olivares hypertension 06/09/2017 None hypertension Onset and Resolution [...] Encounters Encounter Performer Loca tion Codes Date ([id number]) 77532 EST. P ATIENT, LEVEL IV Diagnosis: Essential (primary) hypertension[ICD10: I10] Diagnosis: Type 2 diabetes mellitus with hyperglycemia[ICD10: E11.65] Diagnosis: Cervicalgia[ICD10: M54.2] Diagnosis: Low back pain[ICD10: M54.5] Katy Manzanares MD, [facility] CPT- 4: 76708 10/14/2018 ([id number]) Miscellaneou s no charge Diagnosis: Insect bite (nonvenomous), left lower leg, subsequent encounter[ICD10: S80.862D] Katy Manzanares MD, [facility] CPT-4: 36499 04/22/2018 ([id number]) 06253 EST. P ATIENT, LEVEL III Diagnosis: Insect bite (nonvenomous), left lower leg, initial encounter[ICD10: S80.862A] [facility] CPT-4: 56224 04/20/2018 29843 EST. PATIENT, LEVEL II Diagnosis: Dysuria[ICD10: R30.0] Diagnosis: Other specified conditions associated with female genital organs and menstrual cycle[ICD10: N94.89] [facility] CPT-4: 55809 11/02/2017 ([id number]) 85435 EST. 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 P ATIENT, LEVEL III Diagnosis: Essential (primary) hypertension[ICD10: I10] [facility] CPT-4: 28966 07/20/2017 ([id number]) 25766 EST. P ATIENT, LEVEL III Diagnosis: Essential (primary) hypertension[ICD10: I10] Katy Manzanares MD, [facility] CPT-4: 44848 06/09/2017 ([id number]) 99017 EST. 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 P ATIENT, LEVEL IV Diagnosis: Essential [...] Diagnosis: Fever, unspecified[ICD10: R50.9] Katy Manzanares MD, [facility] CPT- 4: 93568 12/01/2016 ([id number]) 71620 EST. P ATIENT, LEVEL III Diagnosis: Impaired fasting glucose[ICD10: R73.01] Diagnosis: Low back pain[ICD10: M54.5] Diagnosis: Generalized anxiety disorder[ICD10: F41.1] Katy Manzanares MD, [facility] CPT-4: 00959 08/05/2016 ([id number]) 80707 EST. P ATIENT, LEVEL III Diagnosis: Essential (primary) hypertension[ICD10: I10] Diagnosis: Radiculopathy, lumbar region[ICD10: M54.16] Katy Manzanares MD, [facility] CPT-4: 80940 07/22/2016 ([id number]) Miscellaneou s no charge Diagnosis: Dysuria[ICD10: R30.0] Ally Manzanares MD, [facility] CPT-4: 13791 06/12/2016 ([id number]) 81938 EST. P ATIENT, LEVEL IV Diagnosis: Type 2 diabetes mellitus without complications[ICD10: E11.9] Diagnosis: Vitamin D deficiency, unspecified[ICD10: E55.9] Diagnosis: Generalized anxiety disorder[ICD10: F41.1] Diagnosis: Essential (primary) hypertension[ICD10: I10] Diagnosis: Radiculopathy, cervical region[ICD10: M54.12] Diagnosis: Cardiac murmur, unspecified[ICD10: R01.1] Katy Manzanares MD, [facility] CPT-4: 90359 03/06/2016 ([id number]) 82993 EST. P ATIENT, LEVEL III Diagnosis: Generalized anxiety disorder[ICD10: F41.1] Diagnosis: Major depressive disorder, recurrent, in partial remission[ICD10: F33.41] Katy Manzanares MD, [facility] CPT-4: 74637 12/07/2015 ([id number]) 66701 EST. P ATIENT, LEVEL IV Diagnosis: Essential (primary) hypertension[ICD10: I10] Diagnosis: Generalized anxiety disorder[ICD10: F41.1] Diagnosis: Other obesity due to excess calories[ICD10: E66.09] Katy Manzanares MD, [facility] CPT-4: 83116 11/09/2015 ([id number]) 17196 EST. P ATIENT, LEVEL III Diagnosis: Urinary tract infection, site not specified[ICD10: N39.0] Katy Manzanares MD, [facility] CPT-4: 26311 08/17/2015 ([id number]) 23085 EST. P ATIENT, LEVEL III Diagnosis: Generalized anxiety disorder[ICD10: F41.1] Diagnosis: Major depressive disorder, recurrent, moderate[ICD10: F33.1] Katy Manzanares MD, [facility] CPT-4: 74712 07/24/2015 ([id number]) 10273 EST. P ATIENT, LEVEL IV Diagnosis: Myalgia[ICD10: M79.1] Diagnosis: Low back pain[ICD10: M54.5] Diagnosis: Cervicalgia[ICD10: M54.2] Diagnosis: Essential (primary) hypertension[ICD10: I10] Diagnosis: Vitamin D deficiency, unspecified[ICD10: E55.9] Diagnosis: Generalized anxiety disorder[ICD10: F41.1] Katy Manzanares MD, [facility] CPT-4: 45425 07/16/2015 ([id number]) 38294 EST. P ATIENT, LEVEL IV Diagnosis: Cervicalgia[ICD10: M54.2] Diagnosis: Essential (primary) hypertension[ICD10: I10] Diagnosis: Low back pain[ICD10: M54.5] Diagnosis: Radiculopathy, cervical region[ICD10: M54.12] Katy Manzanares MD, [facility] CPT-4: 06898 06/12/2015 13785 EST. PATIENT, LEVEL III Diagnosis: Sacroiliitis, not elsewhere classified[ICD10: M46.1] Diagnosis: Low back pain[ICD10: M54.5] Diagnosis: Pain in left hip[ICD10: M25.552] Diagnosis: Pain in right hip[ICD10: M25.551] Samantha Manzanares MD, [facility] CPT-4: 80896 03/08/2015 43646 EST. PATIENT, LEVEL III Diagnosis: Anxiety disorder due to known physiological condition[ICD10: F06.4] Diagnosis: Mood disorder due to known physiological condition with depressive features[ICD10: F06.31] Diagnosis: Flushing[ICD10: R23.2] Samantha Manzanares MD, [facility] CPT-4: 93464 12/29/2014 ([id number]) 02699 EST. P ATIENT, LEVEL IV Diagnosis: ESSENTIAL HYPERTENSION[ICD9: 401.9] Diagnosis: Anxiety[ICD9: 300.00] Diagnosis: Depression[ICD9: 311] Katy Manzanares MD, [facility] CPT-4: 01024 11/17/2014 ([id number]) 23549 EST. P ATIENT, LEVEL IV Diagnosis: Anxiety[ICD9: 300.00] Diagnosis: Depression[ICD9: 311] Diagnosis: DIABETES TYPE II[ICD9: 250.00] Diagnosis: Vitamin D deficiency[ICD9: 268.9] Diagnosis: ESSENTIAL HYPERTENSION[ICD9: 401.9] Diagnosis: ABNORMAL WEIGHT GAIN[ICD9: 783.1] Katy Manzanares MD, [facility] CPT- 4: 36280 05/16/2014 ([id number]) 99337 EST. P ATIENT, LEVEL IV Diagnosis: ESSENTIAL HYPERTENSION[ICD9: 401.9] Diagnosis: Anxiety[ICD9: 300.00] Diagnosis: Depression[ICD9: 311] Katy Manzanares MD, [facility] CPT-4: 25617 04/04/2014 ([id number]) 78023 EST. P ATIENT, LEVEL IV Diagnosis: Diarrhea[ICD9: 787.91] Diagnosis: Epigastric pain[ICD9: 789.06] Diagnosis: ESOPHAGEAL REFLUX[ICD9: 530.81] Diagnosis: Blood in stool[ICD9: 578.1] Katy Manzanares MD, [facility] CPT- 4: 46803 12/01/2013 ([id number]) 62501 EST. P ATIENT, LEVEL IV Diagnosis: Vitamin D deficiency[ICD9: 268.9] Diagnosis: DIABETES TYPE II[ICD9: 250.00] Diagnosis: Depression[ICD9: 311] Diagnosis: Insomnia[ICD9: 780.52] Ally Manzanares MD, [facility] CPT-4: 07226 10/10/2013 ([id number]) PREV VISIT E ST AGE 40-64 Diagnosis: Well woman exam with routine gynecological exam[ICD9: V72.31] Diagnosis: JOINT PAIN-UNSPEC[ICD9: 719.40] Diagnosis: Nasal septal ulcer[ICD9: 478.19] Diagnosis: Swelling of extremity[ICD9: 729.81] Diagnosis: Pleuritic chest pain[ICD9: 786.52] Katy Manzanares MD, [facility] CPT-4: 03239 09/15/2013 ([id number]) 57283 EST. P ATIENT, LEVEL IV Diagnosis: DM W/O COMPLICATION TYPE II, UNCONTROLLED[SNOMED: 69360766] Diagnosis: Urinary tract infection[ICD9: 599.0] Diagnosis: DEPRESSIVE DISORDER NEC[ICD9: 311] Diagnosis: Anxiety[ICD9: 300.00] Diagnosis: Insomnia[ICD9: 780.52] Diagnosis: ANEMIA[ICD9: 285.9] [facility] CPT-4: 17300 08/16/2013 ([id number]) 97679 EST. P ATIENT, LEVEL III Diagnosis: DM w/o complication type II, uncontrolled[SNOMED: 28499347] [facility] CPT-4: 97286 06/06/2013 ([id number]) 07507 EST. P ATIENT, LEVEL III Diagnosis: DIABETES TYPE II[SNOMED: 060695095] [facility] CPT- 4: 22117 04/26/2013 ([id number]) OFFICE VISI , [facility] - LEVEL 4 Diagnosis: Elevated blood pressure[ICD9: 796.2] Diagnosis: Depression[ICD9: 311] Diagnosis: Elevated alkaline phosphatase level[ICD9: 790.5] Diagnosis: Elevated glucose[ICD9: 790.29] [facility] CPT-4: 75362 04/14/2013 Plan of Care Planned Activity Notes C odes Status Date Visit Plan: Hypertension - well con trolled [...] for radiculopathy 10/14/2018 Appointment: Katy Do WPtel: [address] [place], [place] [phone] (15 min) Moderate 10/14/2018 Patient Education: Patient [...] as directed 04/22/2018 Appointment: Katy Do WPtel: [address] [place], [place] [phone] (30 min) Complex 04/22/2018 Patient Education: Patient Medication Summary Completed 04/22/2018 Visit Plan: Cellulitis - start oral antibiotics as directed, return to clinic for wound check, call for acute change in symptoms, worsening redness, warmth, discharge. 04/20/2018 Appointment: Katy Do WPtel: [address] [place], [place] [phone] (10 min) Simple 04/20/2018 Patient Education: Patient Medication Summary Completed 04/20/2018 Visit Plan: Erythema of labia- dysu vonda -UA negative-yeast infection vs vulvar lichen sclerosis -rx sent to patient's pharmacy and instructed on use -call if symptoms do not resolve of if any worse. Patient verbalized understanding of plan. 11/02/2017 Appointment: Katy Do WPtel: [address] [place], [place] [phone] (15 min) Moderate 11/02/2017 Patient Education: Patient [...] current medications. 10/13/2017 Appointment: Katy Do WPtel: [address] [place] [address] (30 min) Complex 10/13/2017 Patient Education: Patient Medication Summary Completed 10/13/2017 Appointment: Katy Do WPtel: [address] [place] [address] (15 min) Moderate 08/20/2017 Visit Plan: Hypertension - well con trolled but bystolic is not covered-will switch to metoprolol- continue other medications, continue with no added salt diet. Pt has been encouraged to exercise daily. The pt has been advised to call the office if there are any acute concerns about change in blood pressure readings at home. 07/20/2017 Appointment: Katy Do WPtel: [address] [place] [address] (15 min) Moderate 07/20/2017 Patient Education: Patient Medication Summary Completed 07/20/2017 Appointment: Katy Do WPtel: [address] [place] [address] (15 min) Moderate 07/14/2017 Visit Plan: Hypertension [...] iron supplement 05/12/2017 Appointment: Katy Do WPtel: [phone] (30 min) Complex 05/12/2017 Patient Education: Patient Medication Summary Completed 05/12/2017 Patient Education: Patient Medication Summary Completed 05/12/2017 Care Plan: SCREENINGMAMMOGRAPHYDIGITAL LOINC : 90778-8 Pending 05/12/2017 Appointment: Lab Draw 12/08/2016 Patient [...] tick panel 12/01/2016 Appointment: Katy Do WPtel: [phone] (30 min) Complex 12/01/2016 Patient Education: Patient Medication Summary Completed 12/01/2016 Patient Education: Obesity Completed 12/01/2016 Care Plan: Lymes Disease Antibobies Igg/ Igm Pending 12/01/2016 Visit Plan: Elevated glucose-check Hgb A1C Low back pain-will write letter on patient's behalf for insurance precertification Nylhxto-gqtadyogru-ifpz controlled-no changes 08/05/2016 Appointment: Katy Do WPtel: [address] [place], [place] [phone] (30 min) Complex 08/05/2016 Patient Education: Patient [...] next month. 07/22/2016 Appointment: Katy Do WPtel: [address] [place], [place] [phone] (15 min) Moderate 07/22/2016 Patient Education: Patient [...] murmur-schedule Echo 03/06/2016 Appointment: Katy Do WPtel: [address] [place], [place] [phone] (30 min) Complex 03/06/2016 Patient Education: Patient [...] current medications. 12/07/2015 Appointment: Katy Do WPtel: [phone] (30 min) Complex 12/07/2015 Patient Education: Patient Medication Summary Completed 12/07/2015 Patient Education: Obesity Completed 12/07/2015 Visit Plan: Hypertension - well con elined [...] weight check. 11/09/2015 Appointment: Katy Do WPtel: [facility] [place] [address] (30 min) Complex 11/09/2015 Patient Education: Patient Medication Summary Completed 11/09/2015 Patient Education: Obesity Completed 11/09/2015 Care Plan: BMI Above normal followup LOLI F-MGMT EDUC & TRAIN 1 PT Pending 11/09/2015 Appointment: Katy Do WPtel: [phone] (30 min) Complex 11/08/2015 Appointment: Katy Do WPtel: [facility] (15 min) Moderate 08/23/2015 Visit Plan: Urinary [...] D level 07/24/2015 Appointment: Katy Do WPtel: [phone] (30 min) Complex 07/24/2015 Patient Education: Patient [...] in blood pressure readings at home. Neck stou-pmxnterrltlsh-zfhyu to Dr Mckee for evaluation-patient has been [...] min) Moderate 09/04/2014 Appointment: Katy Do WPtel: [address] [facility] [place] [address] Follow up 07/07/2014 Visit Plan: Anxiety and [...] Completed 05/16/2014 Appointment: Katy Do WPtel: [address] [phone] Follow up 05/09/2014 Visit Plan: Hypertension - well con trolled [...] this patient. 04/04/2014 Appointment: [facility] Do WPtel[phone] Follow up 04/04/2014 Patient Education: Patient Medication [...] 12/01/2013 Care Plan: Referral Order SNOMED-CT : [id number] Ordered 12/01/2013 Visit Plan: Diabetes Mellitus - con navarro - per recent FSBS reports. I have [...] for insomnia. 10/10/2013 Appointment: Ally Manzanares WPtel: [address] [place], [place] [phone] Follow up 10/10/2013 Patient Education: Patient Medication Summary Completed 10/10/2013 Appointment: Ally Manzanares WPtel: [facility] Lab Draw 10/06/2013 Patient Education: Patient Medication Summary Completed 10/06/2013 Appointment: Ally Manzanares WPtel: [facility] [place] Follow up 10/04/2013 Visit Plan: Well [...] or prn. Joint pain-pleuritic chest pain-swelling of llua-evjfixg-bgmbpma for autoimmune disease such as lupus-plan to check labs and proceed as indicated. Instructed patient we will call her with results of labs. 09/15/2013 Appointment: Katy Do WPtel: [phone] [place] Pap Only 09/15/2013 Patient Education: Patient [...] iron panel 08/16/2013 Appointment: Katy Do WPtel: [phone] Follow up 08/16/2013 Patient Education: Patient Medication Summary Completed 08/16/2013 Care Plan: C URINE RT Pending 08/16/2013 Appointment: Katy Do WPtel: [address] [place], [place] [phone] [place] Follow up 08/09/2013 Appointment: Ally Manzanares WPtel: [address] [place], [place] [phone] [place] Follow up 08/08/2013 Visit Plan: Diabetes [...] glucose control. 06/06/2013 Appointment: Ally Manzanares WPtel: [address] [place], [place] [phone] [place] Follow up 06/06/2013 Patient Education: Patient Medication Summary Completed 06/06/2013 Appointment: Ally Manzanares WPtel: [address] [place], [place] [phone] [place] Follow up 05/12/2013 Visit Plan: Diabetes Mellitus [...] glucose control. 04/26/2013 Appointment: Katy Do WPtel: [address] [phone] Diabetic education 04/26/2013 Patient Education: Patient Medication [...] and hgba1c. 04/14/2013 Appointment: Ally Manzanares WPtel: [facility] New Patient 04/14/2013 Patient Education: Patient Medication Summary Completed 04/14/2013 Appointment: Ally Manzanares WPtel: [facility] [id number] New Patient 04/05/2013 Referral: Dr Trujillo Referral [...] pills daily keep metformin at current dose. [employer] RX for vitamin D 86764 units weekly. . Diabetes Mellitus - controlled [...] RTC in one month for weight check. stop the neosporin rx for diflucan check [...] or prn. Joint pain-pleuritic chest pain-swelling of fhmx-lmkryxb-jhscubv for autoimmune disease such as lupus-plan to [...] glucose control. HOLD METFORMIN X [address] [facility] [place] RESTART PANTOPRAZOLE DAILY CONTINUE CARAFATE BEFORE MEALS [...] pt is to call for acute concerns. [phone] Samuels and call Sandee to [employer] a copy . Elevated glucose-check Hgb A1C Low back pain-will write letter on patient's behalf for insurance precertification Rwpbdxg-pspuximboe-wkre controlled-no changes . Hypertension - wel l controlled - continue with current medications, continue with no added salt diet. Pt has been encouraged to exercise daily. The pt has been advised to call the office if there are any acute concerns about change in blood pressure readings at home. Neck fgxi-yazhyzuqvwwtn-yvxuf to Dr Mckee for evaluation-patient has been [...]
--- OUTSIDE RECORDS SUMMARY | 2019-03-04 02:38 | XMS REPORT | CCD ---
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 09/15/2013 Marital status Unknown M arried 04/14/[address]: [id number] Never smoker 04/14/2013 Alcohol history Unknown occasionally [...] 50 mg tablet,extended release 24 hr RxNorm: 236593 1 Tablet(s) PO daily 05/12/2018 11/07/2018 Active lisinopril 20 mg-hyd rochlorothiazide 12.5 mg tablet RxNorm: 846572 TAKE 1 TABLET BY MOUTH ONCE DAILY 05/03/2018 No Stop Date Active Bactrim DS 800 mg-16 0 mg tablet RxNorm: 123063 1 Tablet(s) PO BID 04/20/2018 04/26/2018 Inactive mupirocin 2 % topica l ointment RxNorm: 429152 1 Application TOP BID 04/20/2018 04/29/2018 Inactive Diflucan 150 mg tablet RxNorm: 616342 1 Tablet(s) PO daily 11/02/2017 11/08/2017 Inactive Wellbutrin XL 300 mg 24 hr tablet, extended release RxNorm: 176374 TAKE 1 TABLET BY MOUTH ONCE DAILY 09/07/2017 10/13/2018 Inactive metoprolol succinate ER 50 mg tablet,extended release 24 hr RxNorm: 351320 1 Tablet(s) PO daily 07/20/2017 01/15/2018 Inactive amitriptyline 25 mg tablet RxNorm: 812616 Tablet(s) 2 TAB(S) PO HS 07/09/2017 10/13/2018 Inactive Bystolic 5 mg tablet RxNorm: 165939 1 Tablet(s) PO daily 06/09/2017 07/08/2017 Inactive metformin 500 mg tablet RxNorm: 334630 1/2 Tablet(s) PO QPM 05/12/2017 05/11/2017 Inactive Vitamin D2 50,000 un it capsule RxNorm: 307470 1 Capsule(s) PO QW 05/12/2017 10/13/2018 Inactive metformin 500 mg tablet RxNorm: 829093 1/2 Tablet(s) PO QPM 05/12/2017 10/13/2018 Inactive lisinopril 20 mg-hyd rochlorothiazide 12.5 mg tablet RxNorm: 097398 1 TABLET(S) PO DAILY 04/23/2017 10/19/2017 Inactive Wellbutrin XL 300 mg 24 hr tablet, extended release RxNorm: 904415 1 Tablet(s) PO daily 1 TABLET(S) PO DAILY 12/01/2016 05/29/2017 Inactive Wellbutrin XL 150 mg 24 hr tablet, extended release RxNorm: 147146 1 TABLET(S) PO DAILY 10/07/2016 11/30/2016 Inactive amitriptyline 25 mg tablet RxNorm: 911010 2 TAB(S) PO HS,INSTR: FOR PAIN AND SLEEP 09/24/2016 07/08/2017 In active amitriptyline 25 mg tablet RxNorm: 167350 2 Tablet(s) PO QHS 09/23/2016 09/23/2016 Inactive meloxicam 15 mg tablet RxNorm: 759664 1 TABLET(S) PO DAILY 09/08/2016 10/13/[address] on hold until pt needs it: she is going to take (2) 7.5mg until gone cetirizine 10 mg tablet RxNorm: 2410050 1 Tablet(s) PO daily 07/22/2016 No Stop Date Active lisinopril 20 mg-hyd rochlorothiazide 12.5 mg tablet RxNorm: 402758 1 TABLET(S) PO DAILY 06/20/2016 12/16/2016 Inactive Wellbutrin XL 150 mg 24 hr tablet, extended release RxNorm: 810611 1 TABLET(S) PO DAILY 05/12/2016 08/09/2016 Inactive Victoza 3-Jean 0.6 mg /0.1 mL (18 mg/3 mL) subcutaneous pen injector RxNorm: 755404 0.6 Milligram(s) SQ daily 03/21/2016 07/21/2016 Inactive NovoFine Plus 32 gau ge x 1/6" needle RxNorm: 1 Miscellaneous daily 03/21/2016 07/21/2016 Inactive NovoFine Plus 32 gau ge x 1/6" needle RxNorm: 1 Miscellaneous daily 03/21/2016 03/20/2016 Inactive Victoza 3-Jean 0.6 mg /0.1 mL (18 mg/3 mL) subcutaneous pen injector RxNorm: 965164 0.6 Milligram(s) SQ daily 03/21/2016 03/20/2016 Inactive Vitamin D2 50,000 un it capsule RxNorm: 553398 1 Capsule(s) PO QW 03/20/2016 06/17/2016 Inactive meloxicam 15 mg tablet RxNorm: 238900 1 Tablet(s) PO daily 03/20/2016 07/17/[address] on hold until pt needs it: she is going to take (2) 7.5mg until gone lisinopril 20 mg-hyd rochlorothiazide 12.5 mg tablet RxNorm: 083211 1 TABLET(S) PO DAILY 02/19/2016 05/18/2016 Inactive Wellbutrin XL 150 mg 24 hr tablet, extended release RxNorm: 773388 1 Tablet(s) PO daily 11/09/2015 03/07/2016 Inactive gabapentin 800 mg ta blet RxNorm: 553773 1 Tablet(s) PO TID 11/09/2015 06/08/2017 Inactive Lexapro 10 mg tablet RxNorm: 089798 1 TABLET(S) PO QPM 11/05/2015 11/08/2015 Inactive lisinopril 20 mg-hyd rochlorothiazide 12.5 mg tablet RxNorm: 440563 1 TABLET(S) PO DAILY 10/18/2015 01/15/2016 Inactive Cipro 500 mg tablet RxNorm: 223948 1 Tablet(s) PO BID 08/17/2015 08/23/2015 Inactive Lexapro 10 mg tablet RxNorm: 067037 1 Tablet(s) PO QPM 07/24/2015 10/21/2015 Inactive Vitamin D2 50,000 un it capsule RxNorm: 650392 1 Capsule(s) PO QW 07/24/2015 10/21/2015 Inactive gabapentin 300 mg ca psule RxNorm: 322057 2 Capsule(s) PO TID 07/16/2015 11/08/2015 Inactive lisinopril 20 mg-hyd rochlorothiazide 12.5 mg tablet RxNorm: 173280 1 TABLET(S) PO DAILY 04/09/2015 07/07/2015 Inactive naproxen 250 mg tablet RxNorm: 113738 1-2 Tablet(s) PO BID as needed for pain 03/08/2015 10/13/2018 In active Fetzima 40 mg capsul e,extended release RxNorm: 2004752 1 Capsule(s) PO adri y 12/22/2014 12/21/2014 In active Fetzima 40 mg capsul e,extended release RxNorm: 0357624 1 Capsule(s) PO adri y 12/22/2014 06/11/2015 In active Xanax 0.5 mg tablet RxNorm: 412257 1 Tablet(s) TAKE 1 TABLET BY MOUTH TWICE DAILY NEEDED FOR ANXIETY 11/17/2014 10/13/2018 Inactive lisinopril 20 mg-hyd rochlorothiazide 12.5 mg tablet RxNorm: 264650 1 Tablet(s) PO daily 11/17/2014 03/16/2015 Inactive Fetzima 20 mg capsul e,extended release RxNorm: 2210397 1 Capsule(s) PO adri y 11/17/2014 12/22/2014 In active Xanax 0.5 mg tablet RxNorm: 407749 1 Tablet(s) TAKE 1 TABLET BY MOUTH TWICE DAILY NEEDED FOR ANXIETY 10/27/2014 11/16/2014 Inactive Xanax 0.5 mg tablet RxNorm: 681305 TAKE 1 TABLET BY MOUTH TWICE DAILY NE EDED FOR ANXIETY 08/25/2014 10/23/2014 Inactive Brintellix 10 mg tablet RxNorm: 4724633 1 Tablet(s) PO daily 07/04/2014 07/03/2014 Inactive Brintellix 10 mg tablet RxNorm: 4000876 1 Tablet(s) PO daily 07/04/2014 11/16/2014 Inactive Brintellix 10 mg tablet RxNorm: 8285611 1 Tablet(s) PO daily 06/09/2014 07/03/2014 Inactive Contrave 8 mg-90 mg tablet,extended release RxNorm: 6279326 2 Tablet(s) PO BID 06/09/2014 09/06/2014 In active 1 tab q am x 1 week, then 1 tab BID x 1 week, then 2 q am and 1 q pm x 1 week then 2 tabs BID thereafter Contrave 8 mg-90 mg tablet,extended release RxNorm: 7531204 2 Tablet(s) PO BID 06/09/2014 06/08/2014 In active 1 tab q am x 1 week, then 1 tab BID x 1 week, then 2 q am and 1 q pm x 1 week then 2 tabs BID thereafter metformin 500 mg tablet RxNorm: 389640 1/2 Tablet(s) PO BID 05/18/2014 09/14/2014 Inactive Brintellix 10 mg tablet RxNorm: 8066183 2 Tablet(s) PO daily 05/16/2014 06/08/2014 Inactive Xanax 0.5 mg tablet RxNorm: 559160 1 Tablet(s) PO BID PRN 04/06/2014 08/25/2014 Inactive Wellbutrin XL 150 mg 24 hr tablet, extended release RxNorm: 921554 1 Tablet(s) PO daily 04/04/2014 05/15/2014 Inactive [SAVINGS FOR UNINSURED PATIENTS -- BIN:0 53230, PCN: [id number], Group: MAKENNA, ID# [id number], Process claim through [facility], for questions: . THIS IS NOT INSURANCE.] pantoprazole 40 mg t ablet,delayed release RxNorm: 967660 1 Tablet(s) PO daily 12/01/2013 03/30/2014 In active Vitamin D3 2,000 uni t tablet RxNorm: 827048 1 Tablet(s) PO daily 10/10/2013 No Stop Date Active Vitamin D2 50,000 un it capsule RxNorm: 387743 1 Capsule(s) PO QW 10/10/2013 11/16/2014 Inactive vitamin d 50,000 units weekly x 12 weeks then 5000 units daily thereafter escitalopram 20 mg t ablet RxNorm: 856741 1 Tablet(s) PO daily 10/10/2013 04/04/2014 Inactive trazodone 100 mg tablet RxNorm: 029803 1 TABLET(S) PO QHS 09/19/2013 01/16/2014 Inactive trazodone 100 mg tablet RxNorm: 772045 1 Tablet(s) PO QHS 08/16/2013 09/14/2013 Inactive metformin 500 mg tablet RxNorm: 918731 1 Tablet(s) PO BID 08/16/2013 04/03/2014 Inactive Diflucan 150 mg tablet RxNorm: 224521 1 Tablet(s) PO daily 08/16/2013 08/22/2013 Inactive metformin 500 mg tablet RxNorm: 386157 1/2 Tablet(s) PO BID 1/2 tab in the even ing x 1 week then 1/2 tab twice daily 04/26/2013 08/15/2013 Inactive Vitamin D2 50,000 un it capsule RxNorm: 545039 1 Capsule(s) PO QW 04/21/2013 10/09/2013 Inactive vitamin d 50,000 units weekly x 12 weeks then 5000 units daily thereafter Lexapro 10 mg tablet RxNorm: 841981 1 Tablet(s) PO daily 04/14/2013 10/09/2013 Inactive Slow Fe oral RxNorm: 95992 oral No Start Date Active vitamin B complex ca psule RxNorm: 1 Capsule(s) PO daily No Start Date Active lisinopril 20 mg-hyd rochlorothiazide 12.5 mg tablet RxNorm: 558898 1 Tablet(s) PO daily No Start Date 11/16/2014 Inactive gabapentin 300 mg ca psule RxNorm: 652439 1 Capsule(s) PO TID No Start Date 07/15/2015 Inactive cetirizine 10 mg tablet RxNorm: 0549125 1 Tablet(s) PO daily No Start Date 03/05/2016 Inactive tizanidine 2 mg tablet RxNorm: 151215 1 Tablet(s) PO TID No Start Date 10/13/2018 Inactive Vitamin D2 50,000 un it capsule RxNorm: 276600 1 Capsule(s) PO QW No Start Date 04/20/2013 Inactive pantoprazole 40 mg t ablet,delayed release RxNorm: 078238 1 Tablet(s) PO daily No Start Date 10/09/2013 Inactive amitriptyline 10 mg tablet RxNorm: 374796 1 Tablet(s) PO QHS No Start Date 09/22/2016 Inactive meloxicam 7.5 mg tablet RxNorm: 769647 1 Tablet(s) PO daily No Start Date 03/19/2016 Inactive ibuprofen 200 mg tablet RxNorm: 908288 3 Tablet(s) PO TID No Start Date 11/30/2013 Inactive diclofenac 75 mg-mis oprostol 200 mcg tablet,immediate,delayed release RxNorm: 7595019 1 Tablet(s) PO BID No Start Date 10/13/2018 Inactive methocarbamol 500 mg tablet RxNorm: 100295 1 Tablet(s) PO TID No Start Date 10/13/2018 Inactive Advair Diskus 250 mc g-50 mcg/dose powder for inhalation RxNorm: 2567666 2 INH daily No Start Date 07/23/2015 [...] 10/10/2013 Laboratory exam ordered as part of [facility] general medical examination ICD-9: V72.62 10/06/2013 Swelling of extremity ICD-9: 729.81 09/15/2013 JOINT PAIN-UNSPEC ICD-9: 719.40 09/15/2013 Pleuritic chest pain ICD-9: 786.52 09/15/2013 Well woman exam with routine gynecological exam ICD-9: V72.31 09/15/2013 Nasal septal ulcer ICD-9: 478.19 09/15/2013 ANEMIA ICD-9: 285.9 08/07 DM W/O COMPLICATION TYPE II, UNCONTROLLED SNOMED: 37490066 ICD-9: 250.02 08/16/2013 Urinary tract infection ICD-9: [...] Observation Code Item Item Code Result Date Comp Metabolic Yce762 NA 139 mEq/L 10/14/2018 Comp Metabolic Vnf965 K 4.1 mEq/L 10/14/2018 Comp Metabolic Xkw171 CL 103 mEq/L 10/14/2018 Comp Metabolic Zbv499 CO2 27.0 mEq/L 10/14/2018 Comp Metabolic Vvs865 AN ION GAP 13 10/14/2018 Comp Metabolic Nqs254 GL UCOSE 131 mg/dL 10/14/2018 Comp Metabolic Emr448 Cr eat 0.7 mg/dL 10/14/2018 Comp Metabolic Loe597 eG FR 98 ml/min/1.73m2 10/14 Comp Metabolic Qhc666 BUN 12 mg/dL 10/14/2018 Comp Metabolic Cdf139 B/ C Ratio 17.9 Ratio 10/14/2018 Comp Metabolic Npc270 CA LCIUM 9.0 mg/dL 10/14/2018 Comp Metabolic Vwn399 AL K PHOS 127 U/L 10/14/2018 Comp Metabolic Fkm753 T(SGOT) 19 U/L 10/14/2018 Comp Metabolic Agf179 AL T(SGPT) 17 U/L 10/14/2018 Comp Metabolic Nhg779 BI LI T 0.3 mg/dL 10/14/2018 Comp Metabolic Ryw074 AL BUMIN 4.1 g/dL 10/14/2018 Comp Metabolic Yob338 TP RO 6.8 g/dL 10/14/2018 Comp Metabolic Gse908 GL OB 2.7 g/dL 10/14/2018 Comp Metabolic Kfl823 A/ G Ratio 1.5 Ratio 10/14/2018 Comp Metabolic Irn404 Os mo 279 mOsmo 10/14/2018 Cbc With [...] 24.6 pg 10/14/2018 Cbc With Differential Ord2 Rabun% 12.3 % 10/14/2018 Cbc With Differential Ord2 [...] 1.70 K/ul 10/14/2018 Cbc With Differential Ord2 Rabun ABS# 0.9 K/ul 10/14/2018 Cbc With Differential Ord2 Eos ABS# 0.1 K/ul 10/14/2018 Cbc With Differential Ord2 Baso ABS# 0.1 K/ul 10/14/2018 %Hba1C Wja983 % HbA1c 99591-5 6.4 % 10/14/2018 %Hba1C Hjw780 Gluc Ave 137 mg/dL 10/14/2018 Tsh Ord6 [...] 24.3 pg 10/13/2017 Cbc With Differential Ord2 Rabun% 10.1 % 10/13/2017 Cbc With Differential Ord2 [...] 1.71 K/ul 10/13/2017 Cbc With Differential Ord2 Rabun ABS# 0.7 K/ul 10/13/2017 Cbc With Differential Ord2 Eos ABS# 0.1 K/ul 10/13/2017 Cbc With Differential Ord2 Baso ABS# 0.0 K/ul 10/13/2017 %Hba1C Gtj771 % HbA1c 37219-8 6.3 % 10/13/2017 %Hba1C Ohq748 Gluc Ave 134 mg/dL 10/13/2017 Comp Metabolic Pyf474 NA 144 mEq/L 10/13/2017 Comp Metabolic Gna215 K 4.2 mEq/L 10/13/2017 Comp Metabolic Hva634 CL 110 mEq/L 10/13/2017 Comp Metabolic Qrg104 CO2 25.0 mEq/L 10/13/2017 Comp Metabolic Wzv723 AN ION GAP 13 10/13/2017 Comp Metabolic Mey963 GL UCOSE 99 mg/dL 10/13/2017 Comp Metabolic Lyj065 Cr eat 0.6 mg/dL 10/13/2017 Comp Metabolic Hmr877 eG FR 116 ml/min/1.73m2 09/2017 Comp Metabolic Ywo073 BUN 11 mg/dL 10/13/2017 Comp Metabolic Opp777 B/ C Ratio 19.0 Ratio 10/13/2017 Comp Metabolic Umg055 CA LCIUM 9.1 mg/dL 10/13/2017 Comp Metabolic Iyc953 AL K PHOS 134 U/L 10/13/2017 Comp Metabolic Cqo947 T(SGOT) 18 U/L 10/13/2017 Comp Metabolic Zdp409 AL T(SGPT) 17 U/L 10/13/2017 Comp Metabolic Vpu649 BI LI T 0.4 mg/dL 10/13/2017 Comp Metabolic Yvv958 AL BUMIN 4.0 g/dL 10/13/2017 Comp Metabolic Brl652 TP RO 6.6 g/dL 10/13/2017 Comp Metabolic Err937 GL OB 2.6 g/dL 10/13/2017 Comp Metabolic Ota359 A/ G Ratio 1.5 Ratio 10/13/2017 Comp Metabolic Luw733 Os mo 286 mOsmo 10/13/2017 Vitamin D 25 Oh Dxh7289 VITAMIN D, 25 HYDROXY 55.13 ng/mL 10/13/2017 I Fecal Occult Blood Mts3561 IFOB Negative 05/13/2017 B12 Cbz119 B12 427.00 pg/ml 05/12/2017 Tibc Ord40 Iron 35 ug/dl 05/12/2017 Tibc Ord40 UIBC 412 ug/dL 05/12/2017 Tibc Ord40 TIBC 447 ug/dL 05/12/2017 Tibc Ord40 Fe-%Sat 7.8 % 05/12/2017 Ferritin Ord22 FERRITIN 7.2 ng/mL 05/12/2017 Comp Metabolic Kcu697 NA 142 mEq/L 05/12/2017 Comp Metabolic Fte632 K 4.0 mEq/L 05/12/2017 Comp Metabolic Iqz189 CL 106 mEq/L 05/12/2017 Comp Metabolic Rru530 CO2 26.0 mEq/L 05/12/2017 Comp Metabolic Idi684 AN ION GAP 14 05/12/2017 Comp Metabolic Yzg367 GL UCOSE 137 mg/dL 05/12/2017 Comp Metabolic Fgv777 Cr eat 0.6 mg/dL 05/12/2017 Comp Metabolic Qno243 eG FR 116 ml/min/1.73m2 08/2017 Comp Metabolic Psr585 BUN 9 mg/dL 05/12/2017 Comp Metabolic Hya343 B/ C Ratio 15.5 Ratio 05/12/2017 Comp Metabolic Qml547 CA LCIUM 8.8 mg/dL 05/12/2017 Comp Metabolic Xcc158 AL K PHOS 171 U/L 05/12/2017 Comp Metabolic Imx500 T(SGOT) 18 U/L 05/12/2017 Comp Metabolic Sjf776 AL T(SGPT) 17 U/L 05/12/2017 Comp Metabolic Rpc361 BI LI T 0.2 mg/dL 05/12/2017 Comp Metabolic Dja130 AL BUMIN 3.9 g/dL 05/12/2017 Comp Metabolic Kuz953 TP RO 6.5 g/dL 05/12/2017 Comp Metabolic Qma575 GL OB 2.6 g/dL 05/12/2017 Comp Metabolic Nso765 A/ G Ratio 1.5 Ratio 05/12/2017 Comp Metabolic Oay276 Os mo 284 mOsmo 05/12/2017 Iron Ord72 Iron 33 ug/dl 05/12/2017 Vitamin D 25 Oh Cjz5154 VITAMIN D, 25 HYDROXY 31.02 ng/mL 05/12/2017 [...] 22.0 pg 05/12/2017 Cbc With Differential Ord2 Rabun% 8.1 % 05/12/2017 Cbc With Differential Ord2 [...] 1.54 K/ul 05/12/2017 Cbc With Differential Ord2 Rabun ABS# 0.6 K/ul 05/12/2017 Cbc With Differential Ord2 Eos ABS# 0.2 K/ul 05/12/2017 Cbc With Differential Ord2 Baso ABS# 0.0 K/ul 05/12/2017 %Hba1C Igu674 % HbA1c 92096-3 6.6 % 05/12/2017 %Hba1C Fxk088 Gluc Ave 143 mg/dL 05/12/2017 Tsh Ord6 TSH (3rd IS) 3.18 uIU/mL 05/12/2017 Lymes Disease Total Antibodies With Western Blot Refle x [id number] B. BURGDORFERI, IGG/IGM 0.048 12/08/2016 Lymes Disease Total Antibodies With Western Blot Refle x [id number] 12/08/2016 Alena Reflex Profile [id number] ALENA ([place]) SCREEN NONE DETECTED 017 Ehrlichia Chaffeensis Antibody Igm 179623 EHRLICHIA CHAFFEENSIS IGM < 1:16 12/05/2016 [place]well Spotted Fever Igg/Igm 07845 3 GUME AL SPOTTED FEVER IGM EIA . 12/05/2016 [place] Spotted Fever Igg/Igm 46887 3 RMSF, IGM 0.43 index 12/05/2016 [place] Spotted Fever Igg/Igm 37444 3 GUME MT SPOTTED FEVER IGG EIA FLEX . 12/05/2016 [place] Spotted Fever Igg/Igm 93498 3 RMSF, IGG SCREEN-FLEX Negative 12/05/2016 Ehrlichia Chaffeensis Antibody Igg 510755 EHRLICHIA CHAFFEENSIS IGG <1:64 12/05/2016 Tibc Ord40 Iron 37 ug/dl 12/02/2016 Tibc Ord40 UIBC 372 ug/dL 12/02/2016 Tibc Ord40 TIBC 409 ug/dL 12/02/2016 Tibc Ord40 Fe-%Sat 9.0 % 12/02/2016 Ferritin Ord22 FERRITIN 13.9 ng/mL 12/02/2016 B12 Pzn582 B12 344.00 pg/ml 12/02/2016 %Hba1C Bdd013 % HbA1c 15429-8 6.1 % 12/01/2016 %Hba1C Dsl673 Gluc Ave 128 mg/dL 12/01/2016 Cbc With [...] 26.2 pg 12/01/2016 Cbc With Differential Ord2 Rabun% 8.8 % 12/01/2016 Cbc With Differential Ord2 [...] 1.75 K/ul 12/01/2016 Cbc With Differential Ord2 Rabun ABS# 0.6 K/ul 12/01/2016 Cbc With Differential Ord2 Eos ABS# 0.4 K/ul 12/01/2016 Cbc With Differential Ord2 Baso ABS# 0.1 K/ul 12/01/2016 Tsh Ord6 hTSH II 1.80 uIU/mL 12/01/2016 C-Reactive Protein Qnt Crqnt CRP 1.5 mg/dl 12/01/2016 Sed Rate Ord21 ESR 14 mm/hr 12/01/2016 Ra Factor Sva991 RA FACT OR <10 IU/ml 12/01/2016 Vitamin D 25 Oh Ebo5798 VITAMIN D, 25 HYDROXY 30.98 ng/mL 12/01/2016 Comp Metabolic Kvm264 NA 140 mEq/L 12/01/2016 Comp Metabolic Pxu046 K 3.9 mEq/L 12/01/2016 Comp Metabolic Myn393 CL 106 mEq/L 12/01/2016 Comp Metabolic Egd493 CO2 26.0 mEq/L 12/01/2016 Comp Metabolic Sau177 AN ION GAP 12 12/01/2016 Comp Metabolic Mtd324 GL UCOSE 147 mg/dL 12/01/2016 Comp Metabolic Wsd625 Cr eat 0.6 mg/dL 12/01/2016 Comp Metabolic Wts847 eG FR 114 ml/min/1.73m2 11/08 Comp Metabolic Vln989 BUN 11 mg/dL 12/01/2016 Comp Metabolic Cir898 B/ C Ratio 18.6 Ratio 12/01/2016 Comp Metabolic Cou917 CA LCIUM 8.8 mg/dL 12/01/2016 Comp Metabolic Dae235 AL K PHOS 138 U/L 12/01/2016 Comp Metabolic Bmi282 T(SGOT) 34 U/L 12/01/2016 Comp Metabolic Lvw099 AL T(SGPT) 26 U/L 12/01/2016 Comp Metabolic Yqz090 BI LI T 0.3 mg/dL 12/01/2016 Comp Metabolic Swn954 AL BUMIN 3.8 g/dL 12/01/2016 Comp Metabolic Gzn736 TP RO 6.2 g/dL 12/01/2016 Comp Metabolic Odg768 GL OB 2.4 g/dL 12/01/2016 Comp Metabolic Erv392 A/ G Ratio 1.6 Ratio 12/01/2016 Comp Metabolic Zku900 Os mo 281 mOsmo 12/01/2016 %Hba1C Ojs894 % HbA1c 68825-4 6.3 % 08/05/2016 %Hba1C Oxn104 Gluc Ave 134 mg/dL 08/05/2016 Alena [id number] ALENA ([place]) Joshua CHADWICK NONE DETECTED 017 Vitamin D 25 Oh Erx3595 VITAMIN D, 25 HYDROXY 32.26 ng/mL 03/07/2016 Ra Factor Zsx411 RA FACT OR <10 IU/ml 03/07/2016 C-Reactive Protein Qnt Crqnt CRP 2.0 mg/dl 03/06/2016 Sed Rate Ord21 ESR 32 mm/hr 03/06/2016 %Hba1C Gub347 % HbA1c 13011-3 6.3 % 03/06/2016 %Hba1C Mrp575 Gluc Ave 134 mg/dL 03/06/2016 Comp Metabolic Mwe823 NA 138 mEq/L 03/06/2016 Comp Metabolic Zio818 K 4.3 mEq/L 03/06/2016 Comp Metabolic Aqq919 CL 103 mEq/L 03/06/2016 Comp Metabolic Ule987 CO2 23.0 mEq/L 03/06/2016 Comp Metabolic Qgq064 AN ION GAP 16 03/06/2016 Comp Metabolic Zge562 GL UCOSE 148 mg/dL 03/06/2016 Comp Metabolic Pfz613 Cr eat 0.6 mg/dL 03/06/2016 Comp Metabolic Yel047 eG FR 104 ml/min/1.73m2 02/07 Comp Metabolic Sxs275 BUN 13 mg/dL 03/06/2016 Comp Metabolic Rvj131 B/ C Ratio 20.3 Ratio 03/06/2016 Comp Metabolic Fwk077 CA LCIUM 9.7 mg/dL 03/06/2016 Comp Metabolic Ycy369 AL K PHOS 146 U/L 03/06/2016 Comp Metabolic Obd889 T(SGOT) 25 U/L 03/06/2016 Comp Metabolic Flk080 AL T(SGPT) 25 U/L 03/06/2016 Comp Metabolic Pds418 BI LI T 0.3 mg/dL 03/06/2016 Comp Metabolic Vgj258 AL BUMIN 4.1 g/dL 03/06/2016 Comp Metabolic Kty890 TP RO 6.9 g/dL 03/06/2016 Comp Metabolic Nfc990 GL OB 2.8 g/dL 03/06/2016 Comp Metabolic Bvt112 A/ G Ratio 1.5 Ratio 03/06/2016 Comp Metabolic Lhd264 Os mo 279 mOsmo 03/06/2016 Cbc With [...] 27.1 pg 03/06/2016 Cbc With Differential Ord2 Rabun% 9.2 % 03/06/2016 Cbc With Differential Ord2 [...] 1.35 K/ul 03/06/2016 Cbc With Differential Ord2 Rabun ABS# 0.5 K/ul 03/06/2016 Cbc With Differential Ord2 Eos ABS# 0.2 K/ul 03/06/2016 Cbc With Differential Ord2 Baso ABS# 0.1 K/ul 03/06/2016 Tsh Ord6 hTSH II 3.61 uIU/mL 03/06/2016 Culture Urine [id number] URI NE CULTURE SEE NOTES 08/20/2015 Culture Urine [id number] Con tinued Results 08/20/2015 Urine Culture Ucult Comp lete Growth of aerobe sent to ref lab 08/18/2015 Vitamin D 25 Oh Lwf2997 VITAMIN D, 25 HYDROXY 24.39 ng/mL 07/18/2015 Comp Metabolic Qiw195 NA 136 mEq/L 07/17/2015 Comp Metabolic Pae846 K 4.0 mEq/L 07/17/2015 Comp Metabolic Uua438 CL 100 mEq/L 07/17/2015 Comp Metabolic Bif303 CO2 27.0 mEq/L 07/17/2015 Comp Metabolic Skh319 AN ION GAP 13 07/17/2015 Comp Metabolic Edc482 GL UCOSE 121 mg/dL 07/17/2015 Comp Metabolic Nme113 Cr eat 0.7 mg/dL 07/17/2015 Comp Metabolic Aow608 eG FR 96 ml/min/1.73m2 07/16 Comp Metabolic Oen347 BUN 10 mg/dL 07/17/2015 Comp Metabolic Hxl452 B/ C Ratio 14.5 Ratio 07/17/2015 Comp Metabolic Myo530 CA LCIUM 8.9 mg/dL 07/17/2015 Comp Metabolic Kyf606 AL K PHOS 146 U/L 07/17/2015 Comp Metabolic Jqg596 T(SGOT) 20 U/L 07/17/2015 Comp Metabolic Oan341 AL T(SGPT) 22 U/L 07/17/2015 Comp Metabolic Odo790 BI LI T 0.4 mg/dL 07/17/2015 Comp Metabolic Pdv508 AL BUMIN 4.0 g/dL 07/17/2015 Comp Metabolic Qdo562 TP RO 6.6 g/dL 07/17/2015 Comp Metabolic Nsk960 GL OB 2.6 g/dL 07/17/2015 Comp Metabolic Wes528 A/ G Ratio 1.6 Ratio 07/17/2015 Comp Metabolic Gxy507 Os mo 272 mOsmo 07/17/2015 Sed Rate [...] 26.1 pg 07/17/2015 Cbc With Differential Ord2 Rabun% 12.6 % 07/17/2015 Cbc With Differential Ord2 [...] 1.25 K/ul 07/17/2015 Cbc With Differential Ord2 Rabun ABS# 0.9 K/ul 07/17/2015 Cbc With Differential [...] Crqnt CRP 2.9 mg/dl 07/17/2015 GFR CALC 9297430 GFR AA >60 ML/MIN 10/06/2013 GFR CALC 1124661 GFR NON -AA >60 ML/MIN 10/06/2013 CHEM 14 8090527 AST 34 U/L 10/06/2013 CHEM 14 5956541 ALT 30 IU/L 10/06/2013 CHEM 14 6787396 BUN 11 MG/DL 10/06/2013 CHEM 14 0395420 ALBUMIN 4.4 GM/DL 10/06/2013 CHEM 14 8249477 CHLORIDE 107 MMOL/L 10/06/2013 CHEM 14 1231824 BILI TOT 0.4 MG/DL 10/06/2013 CHEM 14 7935017 ALK PHOS 133 U/L 10/06/2013 CHEM 14 0389113 SODIUM 140 MMOL/L 10/06/2013 CHEM 14 6934888 CREATINI NE 0.67 MG/DL 10/06/2013 CHEM 14 5947531 CALCIUM 9.3 MG/DL 10/06/2013 CHEM 14 0824626 POTASSIUM 4.0 MMOL/L 10/06/2013 CHEM 14 9382858 PROT TOT 7.1 GM/DL 10/06/2013 CHEM 14 8470812 GLUCOSE 108 MG/DL 10/06/2013 CHEM 14 1494567 BICARB 25 MMOL/L 10/06/2013 CHEM 14 0452419 ANION GAP 8 MEQ/L 10/06/2013 VIT D TOTL 1937520 VIT D TOTL 37 NG/ML 10/06/2013 GC/CHL PRB 0090032 CHLM PROBE NEG 09/21/2013 GC/CHL PRB 3483912 GC CO OBE NEG 09/21/2013 DNA AB 3381909 DNA AB 36 IU/ML 09/17/2013 RA FACTOR [id number] RA FAC TOR <20.0 IU/ML 09/16/2013 SM MUSC AB [id number] SM MU SC AB <1:20 09/16/2013 CARDIO G/M [id number] CARDI O IGG 1.7 GPLU 09/16/2013 CARDIO G/M [id number] CARDI O IGM 4.8 MPLU 09/16/2013 ALENA SCR [id number] ALENA SCR <1:80 09/16/2013 CRP [id number] CRP 1.1 MG/DL 09/15/2013 ESR 3291116 ESR 22 MM/HR 09/15/2013 CBC 7702280 WBC 5.5 10e9/L 04/26/2013 CBC 8650980 RBC 4.89 10e12/L 04/26/2013 CBC 1611087 HGB 12.8 g/dL 04/26/2013 CBC 4490994 HCT DET 39.5 % 04/26/2013 CBC 5041586 MCV 80.8 fL 04/26/2013 CBC 6988875 MCH 26.2 pg 04/26/2013 CBC 7927635 MCHC 32.4 g/dL 04/26/2013 CBC 2531800 PLT 299 10e9/L 04/26/2013 CBC 0546097 MPV 10.9 fL 04/26/2013 CBC 4763415 WAN % 59.0 % 04/26/2013 CBC 7244333 LY % 29.6 % 04/26/2013 CBC 8154812 MON % 9.1 % 04/26/2013 CBC 4034975 EOS % 1.8 % 04/26/2013 CBC 3266445 BASO % 0.5 % 04/26/2013 CBC 8373926 RDW 13.9 % 04/26/2013 CBC 9450553 ABS WAN 3.25 10e9/L 04/26/2013 CBC 5784168 ABS LYMPH 1.63 10e9/L 04/26/2013 CBC 8911248 ABS MONO 0.50 10e9/L 04/26/2013 CBC 1560283 ABS EOS 0.10 10e9/L 04/26/2013 CBC 8950501 ABS BASO 0.03 10e9/L 04/26/2013 CBC 6106133 RDW-SD 39.9 fL 04/26/2013 URINALYSIS NONAUTO W/O SCOPE 63268 Specific [place] 1.020 DateTime(Free Text in Aprima) URINALYSIS NONAUTO W/O SCOPE 39356 PH 6.0 DateTime(Free Rik t in Apr) URINALYSIS NONAUTO W/O SCOPE 63060 GLUCOSE neg DateTime(Free Rki t in Apr) URINALYSIS NONAUTO W/O SCOPE 82000 Protein neg DateTime(Free Rik t in Apr) URINALYSIS NONAUTO W/O SCOPE 57540 Blood neg DateTime(Free Rik t in Apr) URINALYSIS NONAUTO W/O SCOPE 68223 Bilirubin neg DateTime(Free Rik t in Apr) URINALYSIS NONAUTO W/O SCOPE 34651 Ketones neg DateTime(Free Rik t in Apr) URINALYSIS NONAUTO W/O SCOPE 89255 Urobilinogen neg DateTime(Free Text in ) URINALYSIS NONAUTO W/O SCOPE 50961 Nitrite neg DateTime(Free Rik t in ) URINALYSIS NONAUTO W/O SCOPE 75204 Leukocytes 1+ DateTime(Free Text in ) Review [...] consciousness 10/14/2018 Neurologic pain, back Psychiatric anxiety 080 10/2018 Psychiatric depression 0 10/14/2018 Endocrine No [...] No alteration of consciousness 11/09/2015 Psychiatric anxiety 090 04/2015 Psychiatric depression 0 11/09/2015 Ears/Nose/Throat/Neck No [...] retractions 06/06/2013 None Full Exam - General 1995 Respiratory respiratory effort/rhythm Overall: normal rate 06/06/2013 [...] Date URINALYSIS NONAUTO W /O SCOPE CPT-4: 04355 11/02/2017 OCCULT BLOOD FECES CPT- 4: 67215 12/08/2016 IMMUNIZATION ADMIN CPT- 4: 77168 12/07/2015 FLU VACC 4 AMBER 3 YRS PLUS IM SNOMED CT: 84756994 CPT-4: 88086 12/07/2015 URINALYSIS NONAUTO W /O SCOPE CPT-4: 73880 08/17/2015 CHEM 14 (COMPREHEN M ETABOLIC PANEL) CPT-4: 92153 10/06/2013 VIT D TOTL (VITAMIN D 25 HYDROXY) CPT-4: 25052 10/06/2013 CRP (C-REACTIVE PROT EIN) CPT-4: 52528 09/15/2013 ESR (RBC SED RATE AU TOMATED) CPT-4: 25733 09/15/2013 ROUTINE VENIPUNCTURE CPT-4: 92178 09/15/2013 URINALYSIS NONAUTO W /O SCOPE CPT-4: 08211 08/16/2013 C URINE RT CPT-4: 2370180 08/16/2013 C URINE RT (URINE CU LTURE/COLONY COUNT) CPT-4: 72508 08/16/2013 ROUTINE VENIPUNCTURE CPT-4: 47122 04/26/2013 Vital Signs Date Vital 10/14/2018 Blood Pressure 1: 140/82 Code: 8480-6 BMI: 37.9 Code: 56237-0 Heart Rate 1: 80 bpm Height: 5'5" SpO2: 96% Weight: 228 lbs 04/22/2018 Heigh t: Weight: 04/20/2018 Blood Pressure 1: 150/90 Code: 8480-6 Heart Rate 1: 104 bpm Height: SpO2: 95% Weight: 11/02/2017 Blood Pressure 1: 130/76 Code: 8480-6 BMI: 37.6 Code: 68381-3 Heart Rate 1: 68 bpm Height: 5'5" SpO2: 98% Weight: 226 lbs 10/13/2017 Blood Pressure 1: 140/86 Code: 8480-6 BMI: 37.4 Code: 72429-2 Heart Rate 1: 78 bpm Height: 5'5" SpO2: 98% Weight: 225 lbs 07/20/2017 Blood Pressure 1: 128/80 Code: 8480-6 BMI: 39.1 Code: 29068-2 Heart Rate 1: 75 bpm Height: 5'5" SpO2: 98% Weight: 235 lbs 06/09/2017 Blood Pressure 1: 150/92 Code: 8480-6 BMI: 39.1 Code: 89258-7 Heart Rate 1: 106 bpm Height: 5'5" SpO2: 98% Weight: 235 lbs 05/12/2017 Blood Pressure 1: 144/68 Code: 8480-6 BMI: 38.9 Code: 14189-5 Heart Rate 1: 89 bpm Height: 5'5" SpO2: 98% Weight: 234 lbs 12/01/2016 Blood Pressure 1: 140/88 Code: 8480-6 BMI: 39.6 Code: 37619-0 Heart Rate 1: 101 bpm Height: 5'5" SpO2: 97% Weight: 238 lbs 08/05/2016 Blood Pressure 1: 134/82 Code: 8480-6 Heart Rate 1: 113 bpm Height: 5'5" SpO2: 98% 07/22/2016 Blood Pressure 1: 142/84 Code: 8480-6 BMI: 39.6 Code: 79010-5 Heart Rate 1: 103 bpm Height: 5'5" SpO2: 97% Weight: 238 lbs 03/06/2016 Blood Pressure 1: 138/86 Code: 8480-6 Heart Rate 1: 100 bpm SpO2: 96% Weight: 246 lbs 12/07/2015 Blood Pressure 1: 140/78 Code: 8480-6 BMI: 40.8 Code: 07840-1 Heart Rate 1: 97 bpm Height: 5'6" SpO2: 98% Weight: 250 lbs 11/09/2015 Blood Pressure 1: 118/84 Code: 8480-6 BMI: 40.7 Code: 87612-9 Heart Rate 1: 85 bpm Height: 5'6" SpO2: 98% Weight: 249 lbs 08/17/2015 Blood Pressure 1: 122/82 Code: 8480-6 BMI: 39.4 Code: 31290-5 Heart Rate 1: 86 bpm Height: 5'6" SpO2: 95% Weight: 241 lbs 07/24/2015 Blood Pressure 1: 118/76 Code: 8480-6 BMI: 39.9 Code: 26466-1 Heart Rate 1: 97 bpm Height: 5'6" SpO2: 96% Weight: 244 lbs 07/16/2015 Blood Pressure 1: 158/80 Code: 8480-6 Blood Pressure 1: 120/86 Code: 8480-6 Heart Rate 1: 105 bpm Height: 5'6" SpO2: 98% Weight: 06/12/2015 Blood Pressure 1: 128/82 Code: 8480-6 BMI: 39.9 Code: 86340-0 Heart Rate 1: 89 bpm Height: 5'6" SpO2: 98% Weight: 244 lbs 03/08/2015 Blood Pressure 1: 130/86 Code: 8480-6 Heart Rate 1: 98 bpm Height: 5'6" SpO2: 97% Weight: 12/29/2014 Blood Pressure 1: 138/88 Code: 8480-6 BMI: 39.2 Code: 42393-9 Heart Rate 1: 109 bpm Height: 5'6" SpO2: 97% Weight: 240 lbs 11/17/2014 Blood Pressure 1: 170/98 Code: 8480-6 BMI: 39.7 Code: 68419-4 Heart Rate 1: 92 bpm Height: 5'6" SpO2: 98% Weight: 243 lbs 05/16/2014 Blood Pressure 1: 130/82 Code: 8480-6 BMI: 39.2 Code: 73977-5 Heart Rate 1: 88 bpm Height: 5'6" Weight: 240 lbs 04/04/2014 Blood Pressure 1: 146/92 Code: 8480-6 Blood Pressure 2: 136/86 Code: 8480-6 BMI: 39.9 Code: 24422-4 Heart Rate 1: 68 bpm Height: 5'6" Weight: 244 lbs 12/01/2013 Blood Pressure 1: 142/80 Code: 8480-6 BMI: 38.4 Code: 36081-7 Heart Rate 1: 80 bpm Height: 5'6" Weight: 235 lbs 10/10/2013 Blood Pressure 1: 128/88 Code: 8480-6 BMI: 38.7 Code: 90018-0 Heart Rate 1: 88 bpm Height: 5'6" Weight: 237 lbs 09/15/2013 Blood Pressure 1: 112/74 Code: 8480-6 BMI: 39.0 Code: 64079-8 Heart Rate 1: 80 bpm Height: 5'6" Weight: 239 lbs 08/16/2013 Blood Pressure 1: 124/64 Code: 8480-6 BMI: 39.0 Code: 07509-1 Heart Rate 1: 88 bpm Height: 5'6" Weight: 239 lbs 06/06/2013 Blood Pressure 1: 120/72 Code: 8480-6 BMI: 37.9 Code: 77339-5 Heart Rate 1: 84 bpm Height: 5'6" Weight: 232 lbs 04/26/2013 Blood Pressure 1: 148/86 Code: 8480-6 BMI: 37.7 Code: 84210-7 Heart Rate 1: 84 bpm Height: 5'6" Weight: 231 lbs 04/14/2013 Blood Pressure 1: 148/92 Code: 8480-6 BMI: 38.2 Code: 94946-2 Heart Rate 1: 88 bpm Height: 5'6" [...] Encounters Encounter Performer Loca tion Codes Date ([id number]) 03896 EST. P ATIENT, LEVEL IV Diagnosis: Essential (primary) hypertension[ICD10: I10] Diagnosis: Type 2 diabetes mellitus with hyperglycemia[ICD10: E11.65] Diagnosis: Cervicalgia[ICD10: M54.2] Diagnosis: Low back pain[ICD10: M54.5] Katy Manzanares MD, [facility] CPT- 4: 93942 10/14/2018 ([id number]) Miscellaneou s no charge Diagnosis: Insect bite (nonvenomous), left lower leg, subsequent encounter[ICD10: S80.862D] Katy Manzanares MD, [facility] CPT-4: 05132 04/22/2018 ([id number]) 94090 EST. P ATIENT, LEVEL III Diagnosis: Insect bite (nonvenomous), left lower leg, initial encounter[ICD10: S80.862A] [facility] CPT-4: 55091 04/20/2018 45791 EST. PATIENT, LEVEL II Diagnosis: Dysuria[ICD10: R30.0] Diagnosis: Other specified conditions associated with female genital organs and menstrual cycle[ICD10: N94.89] Katy Manzanares MD, [facility] CPT-4: 84346 11/02/2017 ([id number]) 29461 EST. 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 P ATIENT, LEVEL III Diagnosis: Essential (primary) hypertension[ICD10: I10] [facility] CPT-4: 88771 07/20/2017 ([id number]) 81958 EST. P ATIENT, LEVEL III Diagnosis: Essential (primary) hypertension[ICD10: I10] [facility] CPT-4: 34436 06/09/2017 ([id number]) 07488 EST. 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 P ATIENT, LEVEL IV Diagnosis: Essential [...] Diagnosis: Fever, unspecified[ICD10: R50.9] [facility] CPT- 4: 81886 12/01/2016 ([id number]) 76165 EST. P ATIENT, LEVEL III Diagnosis: Impaired fasting glucose[ICD10: R73.01] Diagnosis: Low back pain[ICD10: M54.5] Diagnosis: Generalized anxiety disorder[ICD10: F41.1] [facility] CPT-4: 41628 08/05/2016 ([id number]) 44003 EST. P ATIENT, LEVEL III Diagnosis: Essential (primary) hypertension[ICD10: I10] Diagnosis: Radiculopathy, lumbar region[ICD10: M54.16] [facility] CPT-4: 85365 07/22/2016 ([id number]) Miscellaneou s no charge Diagnosis: Dysuria[ICD10: R30.0] [facility] CPT-4: 57845 06/12/2016 ([id number]) 77916 EST. P ATIENT, LEVEL IV Diagnosis: Type 2 diabetes mellitus without complications[ICD10: E11.9] Diagnosis: Vitamin D deficiency, unspecified[ICD10: E55.9] Diagnosis: Generalized anxiety disorder[ICD10: F41.1] Diagnosis: Essential (primary) hypertension[ICD10: I10] Diagnosis: Radiculopathy, cervical region[ICD10: M54.12] Diagnosis: Cardiac murmur, unspecified[ICD10: R01.1] Katy Manzanares MD, [facility] CPT-4: 60054 03/06/2016 ([id number]) 49289 EST. P ATIENT, LEVEL III Diagnosis: Generalized anxiety disorder[ICD10: F41.1] Diagnosis: Major depressive disorder, recurrent, in partial remission[ICD10: F33.41] Katy Manzanares MD, [facility] CPT-4: 69779 12/07/2015 ([id number]) 39037 EST. P ATIENT, LEVEL IV Diagnosis: Essential (primary) hypertension[ICD10: I10] Diagnosis: Generalized anxiety disorder[ICD10: F41.1] Diagnosis: Other obesity due to excess calories[ICD10: E66.09] Katy Manzanares MD, [facility] CPT-4: 59271 11/09/2015 ([id number]) 93893 EST. P ATIENT, LEVEL III Diagnosis: Urinary tract infection, site not specified[ICD10: N39.0] Katy Manzanares MD, [facility] CPT-4: 04706 08/17/2015 ([id number]) 43362 EST. P ATIENT, LEVEL III Diagnosis: Generalized anxiety disorder[ICD10: F41.1] Diagnosis: Major depressive disorder, recurrent, moderate[ICD10: F33.1] Katy Manzanares MD, [facility] CPT-4: 65457 07/24/2015 ([id number]) 20204 EST. P ATIENT, LEVEL IV Diagnosis: Myalgia[ICD10: M79.1] Diagnosis: Low back pain[ICD10: M54.5] Diagnosis: Cervicalgia[ICD10: M54.2] Diagnosis: Essential (primary) hypertension[ICD10: I10] Diagnosis: Vitamin D deficiency, unspecified[ICD10: E55.9] Diagnosis: Generalized anxiety disorder[ICD10: F41.1] Katy Manzanares MD, [facility] CPT-4: 25819 07/16/2015 ([id number]) 72893 EST. P ATIENT, LEVEL IV Diagnosis: Cervicalgia[ICD10: M54.2] Diagnosis: Essential (primary) hypertension[ICD10: I10] Diagnosis: Low back pain[ICD10: M54.5] Diagnosis: Radiculopathy, cervical region[ICD10: M54.12] Katy Manzanares MD, [facility] CPT-4: 49010 06/12/2015 33793 EST. PATIENT, LEVEL III Diagnosis: Sacroiliitis, not elsewhere classified[ICD10: M46.1] Diagnosis: Low back pain[ICD10: M54.5] Diagnosis: Pain in left hip[ICD10: M25.552] Diagnosis: Pain in right hip[ICD10: M25.551] Samantha Manzanares MD, [facility] CPT-4: 49105 03/08/2015 85294 EST. 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 P ATIENT, LEVEL IV Diagnosis: ESSENTIAL HYPERTENSION[ICD9: 401.9] Diagnosis: Anxiety[ICD9: 300.00] Diagnosis: Depression[ICD9: 311] Katy Manzanares MD, [facility] CPT-4: 53572 11/17/2014 ([id number]) 39283 EST. P ATIENT, LEVEL IV Diagnosis: Anxiety[ICD9: 300.00] Diagnosis: Depression[ICD9: 311] Diagnosis: DIABETES TYPE II[ICD9: 250.00] Diagnosis: Vitamin D deficiency[ICD9: 268.9] Diagnosis: ESSENTIAL HYPERTENSION[ICD9: 401.9] Diagnosis: ABNORMAL WEIGHT GAIN[ICD9: 783.1] Katy Manzanares MD, [facility] CPT- 4: 16142 05/16/2014 ([id number]) 36068 EST. P ATIENT, LEVEL IV Diagnosis: ESSENTIAL HYPERTENSION[ICD9: 401.9] Diagnosis: Anxiety[ICD9: 300.00] Diagnosis: Depression[ICD9: 311] Katy Manzanares MD, [facility] CPT-4: 29387 04/04/2014 ([id number]) 13744 EST. P ATIENT, LEVEL IV Diagnosis: Diarrhea[ICD9: 787.91] Diagnosis: Epigastric pain[ICD9: 789.06] Diagnosis: ESOPHAGEAL REFLUX[ICD9: 530.81] Diagnosis: Blood in stool[ICD9: 578.1] Katy Manzanares MD, [facility] CPT- 4: 51726 12/01/2013 ([id number]) 59920 EST. P ATIENT, LEVEL IV Diagnosis: Vitamin D deficiency[ICD9: 268.9] Diagnosis: DIABETES TYPE II[ICD9: 250.00] Diagnosis: Depression[ICD9: 311] Diagnosis: Insomnia[ICD9: 780.52] Ally Manzanares MD, [facility] CPT-4: 25410 10/10/2013 ([id number]) PREV VISIT E ST AGE 40-64 Diagnosis: Well woman exam with routine gynecological exam[ICD9: V72.31] Diagnosis: JOINT PAIN-UNSPEC[ICD9: 719.40] Diagnosis: Nasal septal ulcer[ICD9: 478.19] Diagnosis: Swelling of extremity[ICD9: 729.81] Diagnosis: Pleuritic chest pain[ICD9: 786.52] Katy Manzanares MD, [facility] CPT-4: 39099 09/15/2013 ([id number]) 39565 EST. P ATIENT, LEVEL IV Diagnosis: DM W/O COMPLICATION TYPE II, UNCONTROLLED[SNOMED: 47463637] Diagnosis: Urinary tract infection[ICD9: 599.0] Diagnosis: DEPRESSIVE DISORDER NEC[ICD9: 311] Diagnosis: Anxiety[ICD9: 300.00] Diagnosis: Insomnia[ICD9: 780.52] Diagnosis: ANEMIA[ICD9: 285.9] Katy Manzanares MD, [facility] CPT-4: 55306 08/16/2013 ([id number]) 32922 EST. P ATIENT, LEVEL III Diagnosis: DM w/o complication type II, uncontrolled[SNOMED: 27925709] [facility] CPT-4: 77770 06/06/2013 ([id number]) 03177 EST. P ATIENT, LEVEL III Diagnosis: DIABETES TYPE II[SNOMED: 618649303] [facility] CPT- 4: 77975 04/26/2013 ([id number]) OFFICE VISI T, NEW - LEVEL 4 Diagnosis: Elevated blood pressure[ICD9: 796.2] Diagnosis: Depression[ICD9: 311] Diagnosis: Elevated alkaline phosphatase level[ICD9: 790.5] Diagnosis: Elevated glucose[ICD9: 790.29] [facility] CPT-4: 37988 04/14/2013 Plan of Care Planned Activity Notes [...] for radiculopathy 10/14/2018 Appointment: Katy Do WPtel: [address] [place], [place] [phone] (15 min) Moderate 10/14/2018 Patient Education: Patient [...] as directed 04/22/2018 Appointment: Katy Do WPtel: [address] [place] [address] [phone] (30 min) Complex 04/22/2018 Patient Education: Patient Medication Summary Completed 04/22/2018 Visit Plan: Cellulitis - start oral antibiotics as directed, return to clinic for wound check, call for acute change in symptoms, worsening redness, warmth, discharge. 04/20/2018 Appointment: Katy Do WPtel: [address] [place] [address], [place] [phone] (10 min) Simple 04/20/2018 Patient Education: Patient Medication Summary Completed 04/20/2018 Visit Plan: Erythema of labia- dysu vonda -UA negative-yeast infection vs vulvar lichen sclerosis -rx sent to patient's pharmacy and instructed on use -call if symptoms do not resolve of if any worse. Patient verbalized understanding of plan. 11/02/2017 Appointment: Katy Do WPtel: [phone] (15 min) Moderate 11/02/2017 Patient Education: [...] current medications. 10/13/2017 Appointment: Katy Do WPtel: [phone] (30 min) Complex 10/13/2017 Patient Education: Patient Medication Summary Completed 10/13/2017 Appointment: Katy Do WPtel: [phone] (15 min) Moderate 08/20/2017 Visit Plan: [...] at home. 07/20/2017 Appointment: Katy Do WPtel: [phone] (15 min) Moderate 07/20/2017 Patient Education: Patient Medication Summary Completed 07/20/2017 Appointment: Katy Do WPtel: [phone] (15 min) Moderate 07/14/2017 Visit Plan: [...] supplement 05/12/2017 Appointment: Katy Do WPtel: [phone] [phone] [place] [address] (30 min) Complex 05/12/2017 Patient Education: Patient Medication Summary Completed 05/12/2017 Patient Education: Patient Medication Summary Completed 05/12/2017 Care Plan: [facility] : 34417-2 Pending 05/12/2017 Appointment: Lab Draw 12/08/2016 Patient [...] tick panel 12/01/2016 Appointment: Katy Do WPtel: [phone] (30 min) Complex 12/01/2016 Patient Education: Patient Medication Summary Completed 12/01/2016 Patient Education: Obesity Completed 12/01/2016 Care Plan: Lymes Disease Antibobies Igg/ Igm Pending 12/01/2016 Visit Plan: Elevated glucose-check Hgb A1C Low back pain-will write letter on patient's behalf for insurance precertification Cpwnyxg-wkwdcmufaa-fhul controlled-no changes 08/05/2016 Appointment: Katy Do WPtel: [phone] [place] (30 min) Complex 08/05/2016 Patient Education: Patient [...] next month. 07/22/2016 Appointment: Kat[facility] Do WPtel: [phone] (15 min) Moderate 07/22/2016 Patient Education: Patient [...] murmur-schedule Echo 03/06/2016 Appointment: Katy Do WPtel: [address] [place], [place] [phone] (30 min) Complex 03/06/2016 Patient Education: Patient [...] current medications. 12/07/2015 Appointment: Katy Do WPtel: [address] [place], [place] [phone] (30 min) Complex 12/07/2015 Patient Education: Patient [...] weight check. 11/09/2015 Appointment: Katy Do WPtel: [facility] (30 min) Complex 11/09/2015 Patient Education: Patient Medication Summary Completed 11/09/2015 Patient Education: Obesity Completed 11/09/2015 Care Plan: BMI Above normal followup LOLI F-MGMT EDUC & TRAIN 1 PT Pending 11/09/2015 Appointment: Katy Do WPtel: [facility] (30 min) Complex 11/08/2015 Appointment: Katy Do WPtel: [address] (15 min) Moderate 08/23/2015 Visit Plan: [...] D level 07/24/2015 Appointment: Katy Do WPtel: [address] [place], [place] [phone] (30 min) Complex 07/24/2015 Patient Education: Patient [...] in blood pressure readings at home. Neck dqqf-tosteoyrtsteu-qbviu to Dr Mckee for evaluation-patient has been [...] has been appropriately prescribed for this patient. FRANK 11/17/2014 Appointment: (30 min) Complex 11/17/2014 Patient Education: Patient Medication Summary Completed 11/17/2014 Patient Education: Hypertension Completed 11/17/2014 Appointment: (15 min) Moderate 09/04/2014 Appointment: [facility] Do WPtel[phone] Follow up 07/07/2014 Visit Plan: Anxiety and [...] Hypertension Completed 05/16/2014 Appointment: Katy Do WPtel: [phone] [phone] Follow up 05/09/2014 Visit Plan: Hypertension - [...] appropriately prescribed for this patient. 04/04/2014 Appointment: Hi Katy WPtel: [phone] Follow up 04/04/2014 Patient Education: Patient Medication [...] 12/01/2013 Care Plan: Referral Order SNOMED-CT : [id number] Ordered 12/01/2013 Visit Plan: Diabetes Mellitus - [...] for insomnia. 10/10/2013 Appointment: Ally Manzanares WPtel: [address] [place], [place] [phone] Follow up 10/10/2013 Patient Education: Patient Medication Summary Completed 10/10/2013 Appointment: Ally Manzanares WPtel: [address] [place], [place] [phone] Lab Draw 10/06/2013 Patient Education: Patient Medication Summary Completed 10/06/2013 Appointment: Ally Manzanares WPtel: [address] [place], [place] [phone] Follow up 10/04/2013 Visit Plan: Well Adult [...] or prn. Joint pain-pleuritic chest pain-swelling of uvrm-cpmlbxn-rvuinuc for autoimmune disease such as lupus-plan to check labs and proceed as indicated. Instructed patient we will call her with results of labs. 09/15/2013 Appointment: Katy Do WPtel: [phone] [place] Pap Only 09/15/2013 Patient Education: [...] iron panel 08/16/2013 Appointment: Katy Do WPtel: [phone] Follow up 08/16/2013 Patient Education: Patient Medication Summary Completed 08/16/2013 Care Plan: C URINE RT Pending 08/16/2013 Appointment: Katy Do WPtel: [phone] Follow up 08/09/2013 Appointment: Ally Manzanares WPtel: [address] [place], [place] [phone] Follow up 08/08/2013 Visit Plan: Diabetes Mellitus [...] glucose control. 06/06/2013 Appointment: Ally Manzanares WPtel: [address] [place], [place] [phone] Follow up 06/06/2013 Patient Education: Patient Medication Summary Completed 06/06/2013 Appointment: Ally Manzanares WPtel: [address] [place], [place] [phone] Follow up 05/12/2013 Visit Plan: Diabetes Mellitus [...] glucose control. 04/26/2013 Appointment: Katy Do WPtel: [phone] [phone] Diabetic education 04/26/2013 Patient Education: Patient Medication [...] and hgba1c. 04/14/2013 Appointment: Ally Manzanares WPtel: [phone] New Patient 04/14/2013 Patient Education: Patient Medication Summary Completed 04/14/2013 Appointment: Ally Manzanares WPtel: [address] [facility] [place] New Patient 04/05/2013 Referral: Dr Trujillo Referral [...] pills daily keep metformin at current dose. tow picker RX for vitamin D 16660 units weekly. . Diabetes Mellitus - controlled [...] or prn. Joint pain-pleuritic chest pain-swelling of qbqx-sflypyl-bklrhcm for autoimmune disease such as lupus-plan to [...] glucose control. HOLD METFORMIN X 1 W [place] RESTART PANTOPRAZOLE DAILY CONTINUE CARAFATE BEFORE MEALS [...] pt is to call for acute concerns. [phone] Samuels and call Sandee to tow picker a copy . Elevated glucose-check Hgb A1C Low back pain-will write letter on patient's behalf for insurance precertification Iblwiiw-owmxqyswbr-jdvz controlled-no changes . Hypertension - wel l controlled - continue with current medications, continue with no added salt diet. Pt has been encouraged to exercise daily. The pt has been advised to call the office if there are any acute concerns about change in blood pressure readings at home. Neck jdic-dlwzykflrwwfq-heqct to Dr Mckee for evaluation-patient has been [...]
--- OUTSIDE RECORDS SUMMARY | 2019-03-04 02:40 | XMS REPORT | CCD ---
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[employer], [email or web address]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 09/15/2013 Marital status Unknown M arried 04/14/[address]: [id number] Never smoker 04/14/2013 Alcohol history Unknown occasionally [...] 50 mg tablet,extended release 24 hr RxNorm: 019222 1 Tablet(s) PO daily 05/12/2018 11/07/2018 Active lisinopril 20 mg-hyd rochlorothiazide 12.5 mg tablet RxNorm: 884604 TAKE 1 TABLET BY MOUTH ONCE DAILY 05/03/2018 No Stop Date Active Bactrim DS 800 mg-16 0 mg tablet RxNorm: 136733 1 Tablet(s) PO BID 04/20/2018 04/26/2018 Inactive mupirocin 2 % topica l ointment RxNorm: 968717 1 Application TOP BID 04/20/2018 04/29/2018 Inactive Diflucan 150 mg tablet RxNorm: 607710 1 Tablet(s) PO daily 11/02/2017 11/08/2017 Inactive Wellbutrin XL 300 mg 24 hr tablet, extended release RxNorm: 950848 TAKE 1 TABLET BY MOUTH ONCE DAILY 09/07/2017 10/13/2018 Inactive metoprolol succinate ER 50 mg tablet,extended release 24 hr RxNorm: 625949 1 Tablet(s) PO daily 07/20/2017 01/15/2018 Inactive amitriptyline 25 mg tablet RxNorm: 646093 Tablet(s) 2 TAB(S) PO HS 07/09/2017 10/13/2018 Inactive Bystolic 5 mg tablet RxNorm: 684646 1 Tablet(s) PO daily 06/09/2017 07/08/2017 Inactive metformin 500 mg tablet RxNorm: 704153 1/2 Tablet(s) PO QPM 05/12/2017 05/11/2017 Inactive Vitamin D2 50,000 un it capsule RxNorm: 342238 1 Capsule(s) PO QW 05/12/2017 10/13/2018 Inactive metformin 500 mg tablet RxNorm: 619762 1/2 Tablet(s) PO QPM 05/12/2017 10/13/2018 Inactive lisinopril 20 mg-hyd rochlorothiazide 12.5 mg tablet RxNorm: 681858 1 TABLET(S) PO DAILY 04/23/2017 10/19/2017 Inactive Wellbutrin XL 300 mg 24 hr tablet, extended release RxNorm: 710886 1 Tablet(s) PO daily 1 TABLET(S) PO DAILY 12/01/2016 05/29/2017 Inactive Wellbutrin XL 150 mg 24 hr tablet, extended release RxNorm: 948440 1 TABLET(S) PO DAILY 10/07/2016 11/30/2016 Inactive amitriptyline 25 mg tablet RxNorm: 487009 2 TAB(S) PO HS,INSTR: FOR PAIN AND SLEEP 09/24/2016 07/08/2017 In active amitriptyline 25 mg tablet RxNorm: 238940 2 Tablet(s) PO QHS 09/23/2016 09/23/2016 Inactive meloxicam 15 mg tablet RxNorm: 575561 1 TABLET(S) PO DAILY 09/08/2016 10/13/[address] on hold until pt needs it: she is going to take (2) 7.5mg until gone cetirizine 10 mg tablet RxNorm: 3296087 1 Tablet(s) PO daily 07/22/2016 No Stop Date Active lisinopril 20 mg-hyd rochlorothiazide 12.5 mg tablet RxNorm: 017304 1 TABLET(S) PO DAILY 06/20/2016 12/16/2016 Inactive Wellbutrin XL 150 mg 24 hr tablet, extended release RxNorm: 011382 1 TABLET(S) PO DAILY 05/12/2016 08/09/2016 Inactive Victoza 3-Jean 0.6 mg /0.1 mL (18 mg/3 mL) subcutaneous pen injector RxNorm: 109343 0.6 Milligram(s) SQ daily 03/21/2016 07/21/2016 Inactive NovoFine Plus 32 gau ge x 1/6" needle RxNorm: 1 Miscellaneous daily 03/21/2016 07/21/2016 Inactive NovoFine Plus 32 gau ge x 1/6" needle RxNorm: 1 Miscellaneous daily 03/21/2016 03/20/2016 Inactive Victoza 3-Jean 0.6 mg /0.1 mL (18 mg/3 mL) subcutaneous pen injector RxNorm: 254403 0.6 Milligram(s) SQ daily 03/21/2016 03/20/2016 Inactive Vitamin D2 50,000 un it capsule RxNorm: 756011 1 Capsule(s) PO QW 03/20/2016 06/17/2016 Inactive meloxicam 15 mg tablet RxNorm: 715617 1 Tablet(s) PO daily 03/20/2016 07/17/[address] on hold until pt needs it: she is going to take (2) 7.5mg until gone lisinopril 20 mg-hyd rochlorothiazide 12.5 mg tablet RxNorm: 665686 1 TABLET(S) PO DAILY 02/19/2016 05/18/2016 Inactive Wellbutrin XL 150 mg 24 hr tablet, extended release RxNorm: 084741 1 Tablet(s) PO daily 11/09/2015 03/07/2016 Inactive gabapentin 800 mg ta blet RxNorm: 211029 1 Tablet(s) PO TID 11/09/2015 06/08/2017 Inactive Lexapro 10 mg tablet RxNorm: 082803 1 TABLET(S) PO QPM 11/05/2015 11/08/2015 Inactive lisinopril 20 mg-hyd rochlorothiazide 12.5 mg tablet RxNorm: 406069 1 TABLET(S) PO DAILY 10/18/2015 01/15/2016 Inactive Cipro 500 mg tablet RxNorm: 222172 1 Tablet(s) PO BID 08/17/2015 08/23/2015 Inactive Lexapro 10 mg tablet RxNorm: 479470 1 Tablet(s) PO QPM 07/24/2015 10/21/2015 Inactive Vitamin D2 50,000 un it capsule RxNorm: 610285 1 Capsule(s) PO QW 07/24/2015 10/21/2015 Inactive gabapentin 300 mg ca psule RxNorm: 513628 2 Capsule(s) PO TID 07/16/2015 11/08/2015 Inactive lisinopril 20 mg-hyd rochlorothiazide 12.5 mg tablet RxNorm: 822213 1 TABLET(S) PO DAILY 04/09/2015 07/07/2015 Inactive naproxen 250 mg tablet RxNorm: 730847 1-2 Tablet(s) PO BID as needed for pain 03/08/2015 10/13/2018 In active Fetzima 40 mg capsul e,extended release RxNorm: 3996590 1 Capsule(s) PO adri y 12/22/2014 12/21/2014 In active Fetzima 40 mg capsul e,extended release RxNorm: 7994155 1 Capsule(s) PO adri y 12/22/2014 06/11/2015 In active Xanax 0.5 mg tablet RxNorm: 263247 1 Tablet(s) TAKE 1 TABLET BY MOUTH TWICE DAILY NEEDED FOR ANXIETY 11/17/2014 10/13/2018 Inactive lisinopril 20 mg-hyd rochlorothiazide 12.5 mg tablet RxNorm: 527754 1 Tablet(s) PO daily 11/17/2014 03/16/2015 Inactive Fetzima 20 mg capsul e,extended release RxNorm: 6610624 1 Capsule(s) PO adri y 11/17/2014 12/22/2014 In active Xanax 0.5 mg tablet RxNorm: 929797 1 Tablet(s) TAKE 1 TABLET BY MOUTH TWICE DAILY NEEDED FOR ANXIETY 10/27/2014 11/16/2014 Inactive Xanax 0.5 mg tablet RxNorm: 371792 TAKE 1 TABLET BY MOUTH TWICE DAILY NE EDED FOR ANXIETY 08/25/2014 10/23/2014 Inactive Brintellix 10 mg tablet RxNorm: 0205361 1 Tablet(s) PO daily 07/04/2014 07/03/2014 Inactive Brintellix 10 mg tablet RxNorm: 8017763 1 Tablet(s) PO daily 07/04/2014 11/16/2014 Inactive Brintellix 10 mg tablet RxNorm: 0089985 1 Tablet(s) PO daily 06/09/2014 07/03/2014 Inactive Contrave 8 mg-90 mg tablet,extended release RxNorm: 4009023 2 Tablet(s) PO BID 06/09/2014 09/06/2014 In active 1 tab q am x 1 week, then 1 tab BID x 1 week, then 2 q am and 1 q pm x 1 week then 2 tabs BID thereafter Contrave 8 mg-90 mg tablet,extended release RxNorm: 7725836 2 Tablet(s) PO BID 06/09/2014 06/08/2014 In active 1 tab q am x 1 week, then 1 tab BID x 1 week, then 2 q am and 1 q pm x 1 week then 2 tabs BID thereafter metformin 500 mg tablet RxNorm: 037306 1/2 Tablet(s) PO BID 05/18/2014 09/14/2014 Inactive Brintellix 10 mg tablet RxNorm: 1789121 2 Tablet(s) PO daily 05/16/2014 06/08/2014 Inactive Xanax 0.5 mg tablet RxNorm: 151494 1 Tablet(s) PO BID PRN 04/06/2014 08/25/2014 Inactive Wellbutrin XL 150 mg 24 hr tablet, extended release RxNorm: 818924 1 Tablet(s) PO daily 04/04/2014 05/15/2014 Inactive [SAVINGS FOR UNINSURED PATIENTS -- BIN:0 [id number], PCN: [id number], Group: [id number], ID# [id number], Process claim through [employer], for questions: . THIS IS NOT INSURANCE.] pantoprazole 40 mg t ablet,delayed release RxNorm: 802601 1 Tablet(s) PO daily 12/01/2013 03/30/2014 In active Vitamin D3 2,000 uni t tablet RxNorm: 950546 1 Tablet(s) PO daily 10/10/2013 No Stop Date Active Vitamin D2 50,000 un it capsule RxNorm: 975651 1 Capsule(s) PO QW 10/10/2013 11/16/2014 Inactive vitamin d 50,000 units weekly x 12 weeks then 5000 units daily thereafter escitalopram 20 mg t ablet RxNorm: 859702 1 Tablet(s) PO daily 10/10/2013 04/04/2014 Inactive trazodone 100 mg tablet RxNorm: 124384 1 TABLET(S) PO QHS 09/19/2013 01/16/2014 Inactive trazodone 100 mg tablet RxNorm: 711631 1 Tablet(s) PO QHS 08/16/2013 09/14/2013 Inactive metformin 500 mg tablet RxNorm: 502980 1 Tablet(s) PO BID 08/16/2013 04/03/2014 Inactive Diflucan 150 mg tablet RxNorm: 103447 1 Tablet(s) PO daily 08/16/2013 08/22/2013 Inactive metformin 500 mg tablet RxNorm: 141521 1/2 Tablet(s) PO BID 1/2 tab in the even ing x 1 week then 1/2 tab twice daily 04/26/2013 08/15/2013 Inactive Vitamin D2 50,000 un it capsule RxNorm: 123275 1 Capsule(s) PO QW 04/21/2013 10/09/2013 Inactive vitamin d 50,000 units weekly x 12 weeks then 5000 units daily thereafter Lexapro 10 mg tablet RxNorm: 664059 1 Tablet(s) PO daily 04/14/2013 10/09/2013 Inactive Slow Fe oral RxNorm: 51785 oral No Start Date Active vitamin B complex ca psule RxNorm: 1 Capsule(s) PO daily No Start Date Active lisinopril 20 mg-hyd rochlorothiazide 12.5 mg tablet RxNorm: 734830 1 Tablet(s) PO daily No Start Date 11/16/2014 Inactive gabapentin 300 mg ca psule RxNorm: 072820 1 Capsule(s) PO TID No Start Date 07/15/2015 Inactive cetirizine 10 mg tablet RxNorm: 4208884 1 Tablet(s) PO daily No Start Date 03/05/2016 Inactive tizanidine 2 mg tablet RxNorm: 919897 1 Tablet(s) PO TID No Start Date 10/13/2018 Inactive Vitamin D2 50,000 un it capsule RxNorm: 347290 1 Capsule(s) PO QW No Start Date 04/20/2013 Inactive pantoprazole 40 mg t ablet,delayed release RxNorm: 331013 1 Tablet(s) PO daily No Start Date 10/09/2013 Inactive amitriptyline 10 mg tablet RxNorm: 337991 1 Tablet(s) PO QHS No Start Date 09/22/2016 Inactive meloxicam 7.5 mg tablet RxNorm: 338912 1 Tablet(s) PO daily No Start Date 03/19/2016 Inactive ibuprofen 200 mg tablet RxNorm: 627704 3 Tablet(s) PO TID No Start Date 11/30/2013 Inactive diclofenac 75 mg-mis oprostol 200 mcg tablet,immediate,delayed release RxNorm: 8787211 1 Tablet(s) PO BID No Start Date 10/13/2018 Inactive methocarbamol 500 mg tablet RxNorm: 028942 1 Tablet(s) PO TID No Start Date 10/13/2018 Inactive Advair Diskus 250 mc g-50 mcg/dose powder for inhalation RxNorm: 3279831 2 INH daily No Start Date 07/23/2015 [...] 10/10/2013 Laboratory exam ordered as part of [facility] general medical examination ICD-9: V72.62 10/06/2013 Swelling of extremity ICD-9: 729.81 09/15/2013 JOINT PAIN-UNSPEC ICD-9: 719.40 09/15/2013 Pleuritic chest pain ICD-9: 786.52 09/15/2013 Well woman exam with routine gynecological exam ICD-9: V72.31 09/15/2013 Nasal septal ulcer ICD-9: 478.19 09/15/2013 ANEMIA ICD-9: 285.9 08/07 DM W/O COMPLICATION TYPE II, UNCONTROLLED SNOMED: 12950935 ICD-9: 250.02 08/16/2013 Urinary tract infection ICD-9: [...] Item Item Code Result Date Comp Metabolic Tql772 NA 139 mEq/L 10/14/2018 Comp Metabolic Guq206 K 4.1 mEq/L 10/14/2018 Comp Metabolic Wip251 CL 103 mEq/L 10/14/2018 Comp Metabolic Yhl378 CO2 27.0 mEq/L 10/14/2018 Comp Metabolic Whk332 AN ION GAP 13 10/14/2018 Comp Metabolic Krz647 GL UCOSE 131 mg/dL 10/14/2018 Comp Metabolic Rmd151 Cr eat 0.7 mg/dL 10/14/2018 Comp Metabolic Ocb965 eG FR 98 ml/min/1.73m2 10/14 Comp Metabolic Hst533 BUN 12 mg/dL 10/14/2018 Comp Metabolic Gua691 B/ C Ratio 17.9 Ratio 10/14/2018 Comp Metabolic Bhw446 CA LCIUM 9.0 mg/dL 10/14/2018 Comp Metabolic Anx958 AL K PHOS 127 U/L 10/14/2018 Comp Metabolic Pkm436 T(SGOT) 19 U/L 10/14/2018 Comp Metabolic Oba661 AL T(SGPT) 17 U/L 10/14/2018 Comp Metabolic Uyz968 BI LI T 0.3 mg/dL 10/14/2018 Comp Metabolic Gtp757 AL BUMIN 4.1 g/dL 10/14/2018 Comp Metabolic Ijp946 TP RO 6.8 g/dL 10/14/2018 Comp Metabolic Pad550 GL OB 2.7 g/dL 10/14/2018 Comp Metabolic Gwc676 A/ G Ratio 1.5 Ratio 10/14/2018 Comp Metabolic Oor937 Os mo 279 mOsmo 10/14/2018 Cbc With [...] 24.6 pg 10/14/2018 Cbc With Differential Ord2 Clinch% 12.3 % 10/14/2018 Cbc With Differential Ord2 [...] 1.70 K/ul 10/14/2018 Cbc With Differential Ord2 Clinch ABS# 0.9 K/ul 10/14/2018 Cbc With Differential Ord2 Eos ABS# 0.1 K/ul 10/14/2018 Cbc With Differential Ord2 Baso ABS# 0.1 K/ul 10/14/2018 %Hba1C Nny677 % HbA1c 16755-4 6.4 % 10/14/2018 %Hba1C Yra053 Gluc Ave 137 mg/dL 10/14/2018 Tsh Ord6 [...] 24.3 pg 10/13/2017 Cbc With Differential Ord2 Clinch% 10.1 % 10/13/2017 Cbc With Differential Ord2 [...] 1.71 K/ul 10/13/2017 Cbc With Differential Ord2 Clinch ABS# 0.7 K/ul 10/13/2017 Cbc With Differential Ord2 Eos ABS# 0.1 K/ul 10/13/2017 Cbc With Differential Ord2 Baso ABS# 0.0 K/ul 10/13/2017 %Hba1C Tyj855 % HbA1c 56009-8 6.3 % 10/13/2017 %Hba1C Ueu529 Gluc Ave 134 mg/dL 10/13/2017 Comp Metabolic Zvc575 NA 144 mEq/L 10/13/2017 Comp Metabolic Igm472 K 4.2 mEq/L 10/13/2017 Comp Metabolic Ami504 CL 110 mEq/L 10/13/2017 Comp Metabolic Hpj729 CO2 25.0 mEq/L 10/13/2017 Comp Metabolic Uzu339 AN ION GAP 13 10/13/2017 Comp Metabolic Ane912 GL UCOSE 99 mg/dL 10/13/2017 Comp Metabolic Gps743 Cr eat 0.6 mg/dL 10/13/2017 Comp Metabolic Itv294 eG FR 116 ml/min/1.73m2 09/2017 Comp Metabolic Fyx494 BUN 11 mg/dL 10/13/2017 Comp Metabolic Uay659 B/ C Ratio 19.0 Ratio 10/13/2017 Comp Metabolic Hze472 CA LCIUM 9.1 mg/dL 10/13/2017 Comp Metabolic Ypq593 AL K PHOS 134 U/L 10/13/2017 Comp Metabolic Nde697 T(SGOT) 18 U/L 10/13/2017 Comp Metabolic Pgh006 AL T(SGPT) 17 U/L 10/13/2017 Comp Metabolic Uwy619 BI LI T 0.4 mg/dL 10/13/2017 Comp Metabolic Iex093 AL BUMIN 4.0 g/dL 10/13/2017 Comp Metabolic Otu156 TP RO 6.6 g/dL 10/13/2017 Comp Metabolic Pks169 GL OB 2.6 g/dL 10/13/2017 Comp Metabolic Inv167 A/ G Ratio 1.5 Ratio 10/13/2017 Comp Metabolic Tbd967 Os mo 286 mOsmo 10/13/2017 Vitamin D 25 Oh Vny4720 VITAMIN D, 25 HYDROXY 55.13 ng/mL 10/13/2017 I Fecal Occult Blood Vec6601 IFOB Negative 05/13/2017 B12 Xse872 B12 427.00 pg/ml 05/12/2017 Tibc Ord40 Iron 35 ug/dl 05/12/2017 Tibc Ord40 UIBC 412 ug/dL 05/12/2017 Tibc Ord40 TIBC 447 ug/dL 05/12/2017 Tibc Ord40 Fe-%Sat 7.8 % 05/12/2017 Ferritin Ord22 FERRITIN 7.2 ng/mL 05/12/2017 Comp Metabolic Mij402 NA 142 mEq/L 05/12/2017 Comp Metabolic Vwv153 K 4.0 mEq/L 05/12/2017 Comp Metabolic Inw826 CL 106 mEq/L 05/12/2017 Comp Metabolic Eeg461 CO2 26.0 mEq/L 05/12/2017 Comp Metabolic Mxj895 AN ION GAP 14 05/12/2017 Comp Metabolic Wxb520 GL UCOSE 137 mg/dL 05/12/2017 Comp Metabolic Xmi335 Cr eat 0.6 mg/dL 05/12/2017 Comp Metabolic Ipb226 eG FR 116 ml/min/1.73m2 08/2017 Comp Metabolic Idg348 BUN 9 mg/dL 05/12/2017 Comp Metabolic Qgf289 B/ C Ratio 15.5 Ratio 05/12/2017 Comp Metabolic Weg995 CA LCIUM 8.8 mg/dL 05/12/2017 Comp Metabolic Dfj930 AL K PHOS 171 U/L 05/12/2017 Comp Metabolic Zfn050 T(SGOT) 18 U/L 05/12/2017 Comp Metabolic Fig662 AL T(SGPT) 17 U/L 05/12/2017 Comp Metabolic Dri925 BI LI T 0.2 mg/dL 05/12/2017 Comp Metabolic Lao167 AL BUMIN 3.9 g/dL 05/12/2017 Comp Metabolic Kjd617 TP RO 6.5 g/dL 05/12/2017 Comp Metabolic Dve707 GL OB 2.6 g/dL 05/12/2017 Comp Metabolic Sle461 A/ G Ratio 1.5 Ratio 05/12/2017 Comp Metabolic Rwt816 Os mo 284 mOsmo 05/12/2017 Iron Ord72 Iron 33 ug/dl 05/12/2017 Vitamin D 25 Oh Wdk3152 VITAMIN D, 25 HYDROXY 31.02 ng/mL 05/12/2017 [...] 22.0 pg 05/12/2017 Cbc With Differential Ord2 Clinch% 8.1 % 05/12/2017 Cbc With Differential Ord2 [...] 1.54 K/ul 05/12/2017 Cbc With Differential Ord2 Clinch ABS# 0.6 K/ul 05/12/2017 Cbc With Differential Ord2 Eos ABS# 0.2 K/ul 05/12/2017 Cbc With Differential Ord2 Baso ABS# 0.0 K/ul 05/12/2017 %Hba1C Tjp497 % HbA1c 35835-9 6.6 % 05/12/2017 %Hba1C Rrg651 Gluc Ave 143 mg/dL 05/12/2017 Tsh Ord6 TSH (3rd IS) 3.18 uIU/mL 05/12/2017 Lymes Disease Total Antibodies With Western Blot Refle x 813458 B. BURGDORFERI, IGG/IGM 0.048 12/08/2016 Lymes Disease Total Antibodies With Western Blot Refle x 307324 12/08/2016 [place] Reflex Profile [id number] ALENA ([place]) SCREEN NONE DETECTED 017 Ehrlichia Chaffeensis Antibody Igm 040053 EHRLICHIA CHAFFEENSIS IGM < 1:16 12/05/2016 [place] Spotted Fever Igg/Igm [address] SPOTTED FEVER IGM EIA . 12/05/2016 [place] Spotted Fever Igg/Igm 36244 3 RMSF, IGM 0.43 index 12/05/2016 [place] Spotted Fever Igg/Igm 74451 3 GUME MT SPOTTED FEVER IGG EIA FLEX . 12/05/2016 [place] Spotted Fever Igg/Igm 54699 3 RMSF, IGG SCREEN-FLEX Negative 12/05/2016 Ehrlichia Chaffeensis Antibody Igg 097447 EHRLICHIA CHAFFEENSIS IGG <1:64 12/05/2016 Tibc Ord40 Iron 37 ug/dl 12/02/2016 Tibc Ord40 UIBC 372 ug/dL 12/02/2016 Tibc Ord40 TIBC 409 ug/dL 12/02/2016 Tibc Ord40 Fe-%Sat 9.0 % 12/02/2016 Ferritin Ord22 FERRITIN 13.9 ng/mL 12/02/2016 B12 Fhr693 B12 344.00 pg/ml 12/02/2016 %Hba1C Fyd644 % HbA1c 82478-0 6.1 % 12/01/2016 %Hba1C Xbp553 Gluc Ave 128 mg/dL 12/01/2016 Cbc With [...] 26.2 pg 12/01/2016 Cbc With Differential Ord2 Clinch% 8.8 % 12/01/2016 Cbc With Differential Ord2 [...] 1.75 K/ul 12/01/2016 Cbc With Differential Ord2 Clinch ABS# 0.6 K/ul 12/01/2016 Cbc With Differential Ord2 Eos ABS# 0.4 K/ul 12/01/2016 Cbc With Differential Ord2 Baso ABS# 0.1 K/ul 12/01/2016 Tsh Ord6 hTSH II 1.80 uIU/mL 12/01/2016 C-Reactive Protein Qnt Crqnt CRP 1.5 mg/dl 12/01/2016 Sed Rate Ord21 ESR 14 mm/hr 12/01/2016 Ra Factor Knq825 RA FACT OR <10 IU/ml 12/01/2016 Vitamin D 25 Oh Xti5111 VITAMIN D, 25 HYDROXY 30.98 ng/mL 12/01/2016 Comp Metabolic Jnf908 NA 140 mEq/L 12/01/2016 Comp Metabolic Bdk976 K 3.9 mEq/L 12/01/2016 Comp Metabolic Oth880 CL 106 mEq/L 12/01/2016 Comp Metabolic Dof965 CO2 26.0 mEq/L 12/01/2016 Comp Metabolic Jgr343 AN ION GAP 12 12/01/2016 Comp Metabolic Atv144 GL UCOSE 147 mg/dL 12/01/2016 Comp Metabolic Xzx097 Cr eat 0.6 mg/dL 12/01/2016 Comp Metabolic Jjs595 eG FR 114 ml/min/1.73m2 11/08 Comp Metabolic Slj753 BUN 11 mg/dL 12/01/2016 Comp Metabolic Dtv436 B/ C Ratio 18.6 Ratio 12/01/2016 Comp Metabolic Qyi619 CA LCIUM 8.8 mg/dL 12/01/2016 Comp Metabolic Qea015 AL K PHOS 138 U/L 12/01/2016 Comp Metabolic Eli230 T(SGOT) 34 U/L 12/01/2016 Comp Metabolic Fuq616 AL T(SGPT) 26 U/L 12/01/2016 Comp Metabolic Hjz172 BI LI T 0.3 mg/dL 12/01/2016 Comp Metabolic Yve476 AL BUMIN 3.8 g/dL 12/01/2016 Comp Metabolic Lvq993 TP RO 6.2 g/dL 12/01/2016 Comp Metabolic Nzs924 GL OB 2.4 g/dL 12/01/2016 Comp Metabolic Xqb667 A/ G Ratio 1.6 Ratio 12/01/2016 Comp Metabolic Hum377 Os mo 281 mOsmo 12/01/2016 %Hba1C Auf015 % HbA1c 12105-5 6.3 % 08/05/2016 %Hba1C Exn902 Gluc Ave 134 mg/dL 08/05/2016 Alena [id number] ALENA ([place]) Joshua CHADWICK NONE DETECTED 017 Vitamin D 25 Oh Tff9529 VITAMIN D, 25 HYDROXY 32.26 ng/mL 03/07/2016 Ra Factor Tta097 RA FACT OR <10 IU/ml 03/07/2016 C-Reactive Protein Qnt Crqnt CRP 2.0 mg/dl 03/06/2016 Sed Rate Ord21 ESR 32 mm/hr 03/06/2016 %Hba1C Cgl723 % HbA1c 54814-4 6.3 % 03/06/2016 %Hba1C Lru034 Gluc Ave 134 mg/dL 03/06/2016 Comp Metabolic Mpa402 NA 138 mEq/L 03/06/2016 Comp Metabolic Fce469 K 4.3 mEq/L 03/06/2016 Comp Metabolic Lby188 CL 103 mEq/L 03/06/2016 Comp Metabolic Dqu958 CO2 23.0 mEq/L 03/06/2016 Comp Metabolic Hws407 AN ION GAP 16 03/06/2016 Comp Metabolic Fxk694 GL UCOSE 148 mg/dL 03/06/2016 Comp Metabolic Foh136 Cr eat 0.6 mg/dL 03/06/2016 Comp Metabolic Ved177 eG FR 104 ml/min/1.73m2 02/07 Comp Metabolic Caf441 BUN 13 mg/dL 03/06/2016 Comp Metabolic Ppu802 B/ C Ratio 20.3 Ratio 03/06/2016 Comp Metabolic Vpj377 CA LCIUM 9.7 mg/dL 03/06/2016 Comp Metabolic Ppt916 AL K PHOS 146 U/L 03/06/2016 Comp Metabolic Cjt436 T(SGOT) 25 U/L 03/06/2016 Comp Metabolic Zyd971 AL T(SGPT) 25 U/L 03/06/2016 Comp Metabolic Bhm131 BI LI T 0.3 mg/dL 03/06/2016 Comp Metabolic Jzh304 AL BUMIN 4.1 g/dL 03/06/2016 Comp Metabolic Hfx754 TP RO 6.9 g/dL 03/06/2016 Comp Metabolic Tvx680 GL OB 2.8 g/dL 03/06/2016 Comp Metabolic Wnm964 A/ G Ratio 1.5 Ratio 03/06/2016 Comp Metabolic Oha417 Os mo 279 mOsmo 03/06/2016 Cbc With [...] 27.1 pg 03/06/2016 Cbc With Differential Ord2 Clinch% 9.2 % 03/06/2016 Cbc With Differential Ord2 [...] 1.35 K/ul 03/06/2016 Cbc With Differential Ord2 Clinch ABS# 0.5 K/ul 03/06/2016 Cbc With Differential Ord2 Eos ABS# 0.2 K/ul 03/06/2016 Cbc With Differential Ord2 Baso ABS# 0.1 K/ul 03/06/2016 Tsh Ord6 hTSH II 3.61 uIU/mL 03/06/2016 Culture Urine [id number] URI NE CULTURE SEE NOTES 08/20/2015 Culture Urine [id number] Con tinued Results 08/20/2015 Urine Culture Ucult Comp lete Growth of aerobe sent to ref lab 08/18/2015 Vitamin D 25 Oh Sbv9849 VITAMIN D, 25 HYDROXY 24.39 ng/mL 07/18/2015 Comp Metabolic Bxt313 NA 136 mEq/L 07/17/2015 Comp Metabolic Yjs756 K 4.0 mEq/L 07/17/2015 Comp Metabolic Bqk107 CL 100 mEq/L 07/17/2015 Comp Metabolic Hre272 CO2 27.0 mEq/L 07/17/2015 Comp Metabolic Thy007 AN ION GAP 13 07/17/2015 Comp Metabolic Iuq336 GL UCOSE 121 mg/dL 07/17/2015 Comp Metabolic Iow607 Cr eat 0.7 mg/dL 07/17/2015 Comp Metabolic Hlx966 eG FR 96 ml/min/1.73m2 07/16 Comp Metabolic Rpt008 BUN 10 mg/dL 07/17/2015 Comp Metabolic Oqr847 B/ C Ratio 14.5 Ratio 07/17/2015 Comp Metabolic Kqn541 CA LCIUM 8.9 mg/dL 07/17/2015 Comp Metabolic Tas923 AL K PHOS 146 U/L 07/17/2015 Comp Metabolic Zca092 T(SGOT) 20 U/L 07/17/2015 Comp Metabolic Kgl427 AL T(SGPT) 22 U/L 07/17/2015 Comp Metabolic Csq672 BI LI T 0.4 mg/dL 07/17/2015 Comp Metabolic Zdp576 AL BUMIN 4.0 g/dL 07/17/2015 Comp Metabolic Ecl695 TP RO 6.6 g/dL 07/17/2015 Comp Metabolic Mnv468 GL OB 2.6 g/dL 07/17/2015 Comp Metabolic Bca726 A/ G Ratio 1.6 Ratio 07/17/2015 Comp Metabolic Wox755 Os mo 272 mOsmo 07/17/2015 Sed Rate [...] 26.1 pg 07/17/2015 Cbc With Differential Ord2 Clinch% 12.6 % 07/17/2015 Cbc With Differential Ord2 [...] 1.25 K/ul 07/17/2015 Cbc With Differential Ord2 Clinch ABS# 0.9 K/ul 07/17/2015 Cbc With Differential [...] Crqnt CRP 2.9 mg/dl 07/17/2015 GFR CALC 8086026 GFR AA >60 ML/MIN 10/06/2013 GFR CALC 0544390 GFR NON -AA >60 ML/MIN 10/06/2013 CHEM 14 9639299 AST 34 U/L 10/06/2013 CHEM 14 4466009 ALT 30 IU/L 10/06/2013 CHEM 14 2667221 BUN 11 MG/DL 10/06/2013 CHEM 14 9680615 ALBUMIN 4.4 GM/DL 10/06/2013 CHEM 14 9034207 CHLORIDE 107 MMOL/L 10/06/2013 CHEM 14 7558989 BILI TOT 0.4 MG/DL 10/06/2013 CHEM 14 8479148 ALK PHOS 133 U/L 10/06/2013 CHEM 14 6475111 SODIUM 140 MMOL/L 10/06/2013 CHEM 14 7117718 CREATINI NE 0.67 MG/DL 10/06/2013 CHEM 14 9712840 CALCIUM 9.3 MG/DL 10/06/2013 CHEM 14 4157635 POTASSIUM 4.0 MMOL/L 10/06/2013 CHEM 14 7021358 PROT TOT 7.1 GM/DL 10/06/2013 CHEM 14 3160455 GLUCOSE 108 MG/DL 10/06/2013 CHEM 14 6757307 BICARB 25 MMOL/L 10/06/2013 CHEM 14 4503633 ANION GAP 8 MEQ/L 10/06/2013 VIT D TOTL 6978862 VIT D TOTL 37 NG/ML 10/06/2013 GC/CHL PRB 0906335 CHLM PROBE NEG 09/21/2013 GC/CHL PRB 3406870 GC ND OBE NEG 09/21/2013 DNA AB 2510595 DNA AB 36 IU/ML 09/17/2013 RA FACTOR [id number] RA FAC TOR <20.0 IU/ML 09/16/2013 SM MUSC AB 2599575 SM MU SC AB <1:20 09/16/2013 CARDIO G/M [id number] CARDI O IGG 1.7 GPLU 09/16/2013 CARDIO G/M [id number] CARDI O IGM 4.8 MPLU 09/16/2013 ALENA SCR 9510991 ALENA SCR <1:80 09/16/2013 CRP 0343649 CRP 1.1 MG/DL 09/15/2013 ESR 4964606 ESR 22 MM/HR 09/15/2013 CBC 9422334 WBC 5.5 10e9/L 04/26/2013 CBC 5811443 RBC 4.89 10e12/L 04/26/2013 CBC 9665036 HGB 12.8 g/dL 04/26/2013 CBC 9104345 HCT DET 39.5 % 04/26/2013 CBC 1553479 MCV 80.8 fL 04/26/2013 CBC 8184076 MCH 26.2 pg 04/26/2013 CBC 9288770 MCHC 32.4 g/dL 04/26/2013 CBC 4024535 PLT 299 10e9/L 04/26/2013 CBC 2455844 MPV 10.9 fL 04/26/2013 CBC 6963127 WAN % 59.0 % 04/26/2013 CBC 2037065 LY % 29.6 % 04/26/2013 CBC 0820677 MON % 9.1 % 04/26/2013 CBC 4034481 EOS % 1.8 % 04/26/2013 CBC 6002675 BASO % 0.5 % 04/26/2013 CBC 8452661 RDW 13.9 % 04/26/2013 CBC 7818258 ABS WAN 3.25 10e9/L 04/26/2013 CBC 6149319 ABS LYMPH 1.63 10e9/L 04/26/2013 CBC 6851238 ABS MONO 0.50 10e9/L 04/26/2013 CBC 5886980 ABS EOS 0.10 10e9/L 04/26/2013 CBC 2286589 ABS BASO 0.03 10e9/L 04/26/2013 CBC 2998342 RDW-SD 39.9 fL 04/26/2013 URINALYSIS NONAUTO W/O SCOPE 25108 Specific [place] 1.020 DateTime(Free Text in Aprima) URINALYSIS NONAUTO W/O SCOPE 84440 PH 6.0 DateTime(Free Rik t in Apr) URINALYSIS NONAUTO W/O SCOPE 46612 GLUCOSE neg DateTime(Free Rik t in Apr) URINALYSIS NONAUTO W/O SCOPE 33377 Protein neg DateTime(Free Rik t in Apr) URINALYSIS NONAUTO W/O SCOPE 42866 Blood neg DateTime(Free Rik t in Apr) URINALYSIS NONAUTO W/O SCOPE 04659 Bilirubin neg DateTime(Free Rik t in Apr) URINALYSIS NONAUTO W/O SCOPE 22620 Ketones neg DateTime(Free Rik t in Apr) URINALYSIS NONAUTO W/O SCOPE 15712 Urobilinogen neg DateTime(Free Text in ) URINALYSIS NONAUTO W/O SCOPE 36214 Nitrite neg DateTime(Free Rik t in ) URINALYSIS NONAUTO W/O SCOPE 54848 Leukocytes 1+ DateTime(Free Text in ) Review [...] Date URINALYSIS NONAUTO W /O SCOPE CPT-4: 00635 11/02/2017 OCCULT BLOOD FECES CPT- 4: 78848 12/08/2016 IMMUNIZATION ADMIN CPT- 4: 43374 12/07/2015 FLU VACC 4 AMBER 3 YRS PLUS IM SNOMED CT: [id number] CPT-4: 51621 12/07/2015 URINALYSIS NONAUTO W /O SCOPE CPT-4: 93413 08/17/2015 CHEM 14 (COMPREHEN M ETABOLIC PANEL) CPT-4: 03200 10/06/2013 VIT D TOTL (VITAMIN D 25 HYDROXY) CPT-4: 82293 10/06/2013 CRP (C-REACTIVE PROT EIN) CPT-4: 95222 09/15/2013 ESR (RBC SED RATE AU TOMATED) CPT-4: 49511 09/15/2013 ROUTINE VENIPUNCTURE CPT-4: 01536 09/15/2013 URINALYSIS NONAUTO W /O SCOPE CPT-4: 92891 08/16/2013 C URINE RT CPT-4: 0350217 08/16/2013 C URINE RT (URINE CU LTURE/COLONY COUNT) CPT-4: 71064 08/16/2013 ROUTINE VENIPUNCTURE CPT-4: 82712 04/26/2013 Vital Signs Date Vital 10/14/2018 Blood Pressure 1: 140/82 Code: 8480-6 BMI: 37.9 Code: 80039-3 Heart Rate 1: 80 bpm Height: 5'5" SpO2: 96% Weight: 228 lbs 04/22/2018 Heigh t: Weight: 04/20/2018 Blood Pressure 1: 150/90 Code: 8480-6 Heart Rate 1: 104 bpm Height: SpO2: 95% Weight: 11/02/2017 Blood Pressure 1: 130/76 Code: 8480-6 BMI: 37.6 Code: 09343-4 Heart Rate 1: 68 bpm Height: 5'5" SpO2: 98% Weight: 226 lbs 10/13/2017 Blood Pressure 1: 140/86 Code: 8480-6 BMI: 37.4 Code: 04950-0 Heart Rate 1: 78 bpm Height: 5'5" SpO2: 98% Weight: 225 lbs 07/20/2017 Blood Pressure 1: 128/80 Code: 8480-6 BMI: 39.1 Code: 41808-9 Heart Rate 1: 75 bpm Height: 5'5" SpO2: 98% Weight: 235 lbs 06/09/2017 Blood Pressure 1: 150/92 Code: 8480-6 BMI: 39.1 Code: 72157-5 Heart Rate 1: 106 bpm Height: 5'5" SpO2: 98% Weight: 235 lbs 05/12/2017 Blood Pressure 1: 144/68 Code: 8480-6 BMI: 38.9 Code: 91378-8 Heart Rate 1: 89 bpm Height: 5'5" SpO2: 98% Weight: 234 lbs 12/01/2016 Blood Pressure 1: 140/88 Code: 8480-6 BMI: 39.6 Code: 43603-2 Heart Rate 1: 101 bpm Height: 5'5" SpO2: 97% Weight: 238 lbs 08/05/2016 Blood Pressure 1: 134/82 Code: 8480-6 Heart Rate 1: 113 bpm Height: 5'5" SpO2: 98% 07/22/2016 Blood Pressure 1: 142/84 Code: 8480-6 BMI: 39.6 Code: 75846-2 Heart Rate 1: 103 bpm Height: 5'5" SpO2: 97% Weight: 238 lbs 03/06/2016 Blood Pressure 1: 138/86 Code: 8480-6 Heart Rate 1: 100 bpm SpO2: 96% Weight: 246 lbs 12/07/2015 Blood Pressure 1: 140/78 Code: 8480-6 BMI: 40.8 Code: 02974-2 Heart Rate 1: 97 bpm Height: 5'6" SpO2: 98% Weight: 250 lbs 11/09/2015 Blood Pressure 1: 118/84 Code: 8480-6 BMI: 40.7 Code: 52331-6 Heart Rate 1: 85 bpm Height: 5'6" SpO2: 98% Weight: 249 lbs 08/17/2015 Blood Pressure 1: 122/82 Code: 8480-6 BMI: 39.4 Code: 32706-0 Heart Rate 1: 86 bpm Height: 5'6" SpO2: 95% Weight: 241 lbs 07/24/2015 Blood Pressure 1: 118/76 Code: 8480-6 BMI: 39.9 Code: 34046-4 Heart Rate 1: 97 bpm Height: 5'6" SpO2: 96% Weight: 244 lbs 07/16/2015 Blood Pressure 1: 158/80 Code: 8480-6 Blood Pressure 1: 120/86 Code: 8480-6 Heart Rate 1: 105 bpm Height: 5'6" SpO2: 98% Weight: 06/12/2015 Blood Pressure 1: 128/82 Code: 8480-6 BMI: 39.9 Code: 33237-7 Heart Rate 1: 89 bpm Height: 5'6" SpO2: 98% Weight: 244 lbs 03/08/2015 Blood Pressure 1: 130/86 Code: 8480-6 Heart Rate 1: 98 bpm Height: 5'6" SpO2: 97% Weight: 12/29/2014 Blood Pressure 1: 138/88 Code: 8480-6 BMI: 39.2 Code: 94784-3 Heart Rate 1: 109 bpm Height: 5'6" SpO2: 97% Weight: 240 lbs 11/17/2014 Blood Pressure 1: 170/98 Code: 8480-6 BMI: 39.7 Code: 35301-9 Heart Rate 1: 92 bpm Height: 5'6" SpO2: 98% Weight: 243 lbs 05/16/2014 Blood Pressure 1: 130/82 Code: 8480-6 BMI: 39.2 Code: 92329-7 Heart Rate 1: 88 bpm Height: 5'6" Weight: 240 lbs 04/04/2014 Blood Pressure 1: 146/92 Code: 8480-6 Blood Pressure 2: 136/86 Code: 8480-6 BMI: 39.9 Code: 52423-4 Heart Rate 1: 68 bpm Height: 5'6" Weight: 244 lbs 12/01/2013 Blood Pressure 1: 142/80 Code: 8480-6 BMI: 38.4 Code: 32137-1 Heart Rate 1: 80 bpm Height: 5'6" Weight: 235 lbs 10/10/2013 Blood Pressure 1: 128/88 Code: 8480-6 BMI: 38.7 Code: 49661-7 Heart Rate 1: 88 bpm Height: 5'6" Weight: 237 lbs 09/15/2013 Blood Pressure 1: 112/74 Code: 8480-6 BMI: 39.0 Code: 11288-1 Heart Rate 1: 80 bpm Height: 5'6" Weight: 239 lbs 08/16/2013 Blood Pressure 1: 124/64 Code: 8480-6 BMI: 39.0 Code: 10034-8 Heart Rate 1: 88 bpm Height: 5'6" Weight: 239 lbs 06/06/2013 Blood Pressure 1: 120/72 Code: 8480-6 BMI: 37.9 Code: 32392-3 Heart Rate 1: 84 bpm Height: 5'6" Weight: 232 lbs 04/26/2013 Blood Pressure 1: 148/86 Code: 8480-6 BMI: 37.7 Code: 85949-5 Heart Rate 1: 84 bpm Height: 5'6" Weight: 231 lbs 04/14/2013 Blood Pressure 1: 148/92 Code: 8480-6 BMI: 38.2 Code: 95825-4 Heart Rate 1: 88 bpm Height: 5'6" [...] Encounters Encounter Performer Loca tion Codes Date ([id number]) 75044 EST. P ATIENT, LEVEL IV Diagnosis: Essential (primary) hypertension[ICD10: I10] Diagnosis: Type 2 diabetes mellitus with hyperglycemia[ICD10: E11.65] Diagnosis: Cervicalgia[ICD10: M54.2] Diagnosis: Low back pain[ICD10: M54.5] Katy Manzanares MD, [facility] CPT- 4: 64553 10/14/2018 ([id number]) Miscellaneou s no charge Diagnosis: Insect bite (nonvenomous), left lower leg, subsequent encounter[ICD10: S80.862D] Katy Manzanares MD, [facility] CPT-4: 16341 04/22/2018 ([id number]) 84564 EST. P ATIENT, LEVEL III Diagnosis: Insect bite (nonvenomous), left lower leg, initial encounter[ICD10: S80.862A] [facility] CPT-4: 70189 04/20/2018 35951 EST. PATIENT, LEVEL II Diagnosis: Dysuria[ICD10: R30.0] Diagnosis: Other specified conditions associated with female genital organs and menstrual cycle[ICD10: N94.89] Katy Manzanares MD, [facility] CPT-4: 01281 11/02/2017 ([id number]) 80067 EST. 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 P ATIENT, LEVEL III Diagnosis: Essential (primary) hypertension[ICD10: I10] [facility] CPT-4: 72865 07/20/2017 ([id number]) 85116 EST. P ATIENT, LEVEL III Diagnosis: Essential (primary) hypertension[ICD10: I10] [facility] CPT-4: 25603 06/09/2017 ([id number]) 82282 EST. 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 P ATIENT, LEVEL IV Diagnosis: Essential [...] R50.9] [facility] CPT- 4: 79385 12/01/2016 ([id number]) 37469 EST. P ATIENT, LEVEL III Diagnosis: Impaired fasting glucose[ICD10: R73.01] Diagnosis: Low back pain[ICD10: M54.5] Diagnosis: Generalized anxiety disorder[ICD10: F41.1] [facility] CPT-4: 68846 08/05/2016 ([id number]) 40796 EST. P ATIENT, LEVEL III Diagnosis: Essential (primary) hypertension[ICD10: I10] Diagnosis: Radiculopathy, lumbar region[ICD10: M54.16] [facility] CPT-4: 67189 07/22/2016 ([id number]) Miscellaneou s no charge Diagnosis: Dysuria[ICD10: R30.0] [facility] CPT-4: 61906 06/12/2016 ([id number]) 83385 EST. P ATIENT, LEVEL IV Diagnosis: Type 2 diabetes mellitus without complications[ICD10: E11.9] Diagnosis: Vitamin D deficiency, unspecified[ICD10: E55.9] Diagnosis: Generalized anxiety disorder[ICD10: F41.1] Diagnosis: Essential (primary) hypertension[ICD10: I10] Diagnosis: Radiculopathy, cervical region[ICD10: M54.12] Diagnosis: Cardiac murmur, unspecified[ICD10: R01.1] Katy Manzanares MD, [facility] CPT-4: 73160 03/06/2016 ([id number]) 05010 EST. P ATIENT, LEVEL III Diagnosis: Generalized anxiety disorder[ICD10: F41.1] Diagnosis: Major depressive disorder, recurrent, in partial remission[ICD10: F33.41] Katy Manzanares MD, [facility] CPT-4: 83999 12/07/2015 ([id number]) 96992 EST. P ATIENT, LEVEL IV Diagnosis: Essential (primary) hypertension[ICD10: I10] Diagnosis: Generalized anxiety disorder[ICD10: F41.1] Diagnosis: Other obesity due to excess calories[ICD10: E66.09] Katy Manzanares MD, [facility] CPT-4: 64315 11/09/2015 ([id number]) 98124 EST. P ATIENT, LEVEL III Diagnosis: Urinary tract infection, site not specified[ICD10: N39.0] Katy Manzanares MD, [facility] CPT-4: 82167 08/17/2015 ([id number]) 63210 EST. P ATIENT, LEVEL III Diagnosis: Generalized anxiety disorder[ICD10: F41.1] Diagnosis: Major depressive disorder, recurrent, moderate[ICD10: F33.1] Katy Manzanares MD, [facility] CPT-4: 35253 07/24/2015 ([id number]) 04738 EST. P ATIENT, LEVEL IV Diagnosis: Myalgia[ICD10: M79.1] Diagnosis: Low back pain[ICD10: M54.5] Diagnosis: Cervicalgia[ICD10: M54.2] Diagnosis: Essential (primary) hypertension[ICD10: I10] Diagnosis: Vitamin D deficiency, unspecified[ICD10: E55.9] Diagnosis: Generalized anxiety disorder[ICD10: F41.1] Katy Manzanares MD, [facility] CPT-4: 65503 07/16/2015 ([id number]) 27661 EST. P ATIENT, LEVEL IV Diagnosis: Cervicalgia[ICD10: M54.2] Diagnosis: Essential (primary) hypertension[ICD10: I10] Diagnosis: Low back pain[ICD10: M54.5] Diagnosis: Radiculopathy, cervical region[ICD10: M54.12] Katy Manzanares MD, [facility] CPT-4: 67032 06/12/2015 54270 EST. PATIENT, LEVEL III Diagnosis: Sacroiliitis, not elsewhere classified[ICD10: M46.1] Diagnosis: Low back pain[ICD10: M54.5] Diagnosis: Pain in left hip[ICD10: M25.552] Diagnosis: Pain in right hip[ICD10: M25.551] Samantha Manzanares MD, [facility] CPT-4: 19599 03/08/2015 60287 EST. PATIENT, LEVEL III Diagnosis: Anxiety disorder due to known physiological condition[ICD10: F06.4] Diagnosis: Mood disorder due to known physiological condition with depressive features[ICD10: F06.31] Diagnosis: Flushing[ICD10: R23.2] Samantha Manzanares MD, [facility] CPT-4: 40342 12/29/2014 ([id number]) 96692 EST. P ATIENT, LEVEL IV Diagnosis: ESSENTIAL HYPERTENSION[ICD9: 401.9] Diagnosis: Anxiety[ICD9: 300.00] Diagnosis: Depression[ICD9: 311] Katy Manzanares MD, [facility] CPT-4: 49355 11/17/2014 ([id number]) 57090 EST. P ATIENT, LEVEL IV Diagnosis: Anxiety[ICD9: 300.00] Diagnosis: Depression[ICD9: 311] Diagnosis: DIABETES TYPE II[ICD9: 250.00] Diagnosis: Vitamin D deficiency[ICD9: 268.9] Diagnosis: ESSENTIAL HYPERTENSION[ICD9: 401.9] Diagnosis: ABNORMAL WEIGHT GAIN[ICD9: 783.1] Katy Manzanares MD, [facility] CPT- 4: 15616 05/16/2014 ([id number]) 96964 EST. P ATIENT, LEVEL IV Diagnosis: ESSENTIAL HYPERTENSION[ICD9: 401.9] Diagnosis: Anxiety[ICD9: 300.00] Diagnosis: Depression[ICD9: 311] Katy Manzanares MD, [facility] CPT-4: 23778 04/04/2014 ([id number]) 55877 EST. P ATIENT, LEVEL IV Diagnosis: Diarrhea[ICD9: 787.91] Diagnosis: Epigastric pain[ICD9: 789.06] Diagnosis: ESOPHAGEAL REFLUX[ICD9: 530.81] Diagnosis: Blood in stool[ICD9: 578.1] Katy Manzanares MD, [facility] CPT- 4: 56554 12/01/2013 ([id number]) 33898 EST. P ATIENT, LEVEL IV Diagnosis: Vitamin D deficiency[ICD9: 268.9] Diagnosis: DIABETES TYPE II[ICD9: 250.00] Diagnosis: Depression[ICD9: 311] Diagnosis: Insomnia[ICD9: 780.52] Ally Manzanares MD, [facility] CPT-4: 43101 10/10/2013 ([id number]) PREV VISIT E ST AGE 40-64 Diagnosis: Well woman exam with routine gynecological exam[ICD9: V72.31] Diagnosis: JOINT PAIN-UNSPEC[ICD9: 719.40] Diagnosis: Nasal septal ulcer[ICD9: 478.19] Diagnosis: Swelling of extremity[ICD9: 729.81] Diagnosis: Pleuritic chest pain[ICD9: 786.52] Katy Manzanares MD, [facility] CPT-4: 27016 09/15/2013 ([id number]) 13494 EST. P ATIENT, LEVEL IV Diagnosis: DM W/O COMPLICATION TYPE II, UNCONTROLLED[SNOMED: 57191622] Diagnosis: Urinary tract infection[ICD9: 599.0] Diagnosis: DEPRESSIVE DISORDER NEC[ICD9: 311] Diagnosis: Anxiety[ICD9: 300.00] Diagnosis: Insomnia[ICD9: 780.52] Diagnosis: ANEMIA[ICD9: 285.9] Katy Manzanares MD, [facility] CPT-4: 02790 08/16/2013 ([id number]) 33549 EST. P ATIENT, LEVEL III Diagnosis: DM w/o complication type II, uncontrolled[SNOMED: 70375720] [facility] CPT-4: 80398 06/06/2013 ([id number]) 81093 EST. P ATIENT, LEVEL III Diagnosis: DIABETES TYPE II[SNOMED: 224910699] [facility] CPT- 4: 08218 04/26/2013 ([id number]) OFFICE VISI T, NEW - LEVEL 4 Diagnosis: Elevated blood pressure[ICD9: 796.2] Diagnosis: Depression[ICD9: 311] Diagnosis: Elevated alkaline phosphatase level[ICD9: 790.5] Diagnosis: Elevated glucose[ICD9: 790.29] [facility] CPT-4: 61723 04/14/2013 Plan of Care Planned Activity Notes [...] as indicated- start lyrica for radiculopathy 10/14/2018 Patient Education: Patient Medication Summary Completed [...] as directed 04/22/2018 Appointment: Katy Do WPtel: [address] [place], [place] [phone] [place] (30 min) Complex 04/22/2018 Patient Education: Patient Medication Summary Completed 04/22/2018 Visit Plan: Cellulitis - start oral antibiotics as directed, return to clinic for wound check, call for acute change in symptoms, worsening redness, warmth, discharge. 04/20/2018 Appointment: Katy Do WPtel: [phone] [phone] (10 min) Simple 04/20/2018 Patient Education: Patient Medication Summary Completed 04/20/2018 Visit Plan: Erythema of labia- dysu vonda -UA negative-yeast infection vs vulvar lichen sclerosis -rx sent to patient's pharmacy and instructed on use -call if symptoms do not resolve of if any worse. Patient verbalized understanding of plan. 11/02/2017 Appointment: Katy Do WPtel: [phone] [phone] (15 min) Moderate 11/02/2017 Patient Education: Patient [...] current medications. 10/13/2017 Appointment: Katy Do WPtel: [phone] [phone] (30 min) Complex 10/13/2017 Patient Education: Patient Medication Summary Completed 10/13/2017 Appointment: Katy Do WPtel: [phone] [phone] [place] (15 min) Moderate 08/20/2017 Visit Plan: Hypertension - well con trolled but bystolic is not covered-will switch to metoprolol- continue other medications, continue with no added salt diet. Pt has been encouraged to exercise daily. The pt has been advised to call the office if there are any acute concerns about change in blood pressure readings at home. 07/20/2017 Appointment: Katy Do WPtel: [phone] (15 min) Moderate 07/20/2017 Patient Education: Patient Medication Summary Completed 07/20/2017 Appointment: Katy Do WPtel: [phone] [phone] (15 min) Moderate 07/14/2017 Visit Plan: Hypertension [...] iron supplement 05/12/2017 Appointment: Katy Do WPtel: [phone] (30 min) Complex 05/12/2017 Patient Education: Patient Medication Summary Completed 05/12/2017 Patient Education: Patient Medication Summary Completed 05/12/2017 Care Plan: SCREENINGMAMMOGRAPHYDIGITAL LOINC : 39399-6 Pending 05/12/2017 Appointment: Lab Draw 12/08/2016 Patient [...] tick panel 12/01/2016 Appointment: Katy Do WPtel: [phone] (30 min) Complex 12/01/2016 Patient Education: Patient Medication Summary Completed 12/01/2016 Patient Education: Obesity Completed 12/01/2016 Care Plan: Lymes Disease Antibobies Igg/ Igm Pending 12/01/2016 Visit Plan: Elevated glucose-check Hgb A1C Low back pain-will write letter on patient's behalf for insurance precertification Kexcuex-zfmpoqueyv-vvoi controlled-no changes 08/05/2016 Appointment: Katy Do WPtel: [address] [place], [place] [phone] (30 min) Complex 08/05/2016 Patient Education: Patient [...] next month. 07/22/2016 [facility]ment[phone] (15 min) Moderate 07/22/2016 Patient Education: [...] murmur-schedule Echo 03/06/2016 Appointment: Katy Do WPtel[phone] (30 min) Complex 03/06/2016 Patient Education: Patient [...] current medications. 12/07/2015 Appointment: Katy Do WPtel[phone] (30 min) Complex 12/07/2015 Patient Education: Patient [...] weight check. 11/09/2015 Appointment: Katy Do WPtel: [phone] (30 min) Complex 11/09/2015 Patient Education: Patient Medication Summary Completed 11/09/2015 Patient Education: Obesity Completed 11/09/2015 Care Plan: BMI Above normal followup LOLI F-MGMT EDUC & TRAIN 1 PT Pending 11/09/2015 Appointment: Katy Do WPtel: [phone] (30 min) Complex 11/08/2015 Appointment: Katy Do WPtel: [phone] (15 min) Moderate 08/23/2015 Visit Plan: Urinary [...] D level 07/24/2015 Appointment: Katy Do WPtel: [phone] [phone] (30 min) Complex 07/24/2015 Patient Education: Patient [...] in blood pressure readings at home. Neck cvbn-hswdbiqrmpwca-iqaoo to Dr Mckee for evaluation-patient has been [...] min) Moderate 09/04/2014 Appointment: Katy Do WPtel: [phone] [place] [address] Follow up 07/07/2014 Visit Plan: Anxiety and [...] Hypertension Completed 05/16/2014 Appointment: Katy Do WPtel: [address] [place], [place] [phone] [place] [address] Follow up 05/09/2014 Visit Plan: Hypertension - [...] this patient. 04/04/2014 Appointment: Katy Do WPtel[phone] Follow up 04/04/2014 Patient Education: Patient [...] 12/01/2013 Care Plan: Referral Order SNOMED-CT : [id number] Ordered 12/01/2013 Visit Plan: Diabetes Mellitus - [...] for insomnia. 10/10/2013 Appointment: [facility]el[phone] [place] Follow up 10/10/2013 Patient Education: Patient Medication Summary Completed 10/10/2013 Appointment: Ally Manzanares WPtel: [phone] [facility] Lab Draw 10/06/2013 Patient Education: Patient Medication Summary Completed 10/06/2013 Appointment: Ally Manzanares WPtel: [facility] [place] Follow up 10/04/2013 Visit Plan: Well [...] or prn. Joint pain-pleuritic chest pain-swelling of rxce-tpzhwex-afmcqut for autoimmune disease such as lupus-plan to check labs and proceed as indicated. Instructed patient we will call her with results of labs. 09/15/2013 Appointment: Katy Do WPtel: [phone] [place] Pap Only 09/15/2013 Patient Education: Patient [...] iron panel 08/16/2013 Appointment: Katy Do WPtel: [phone] Follow up 08/16/2013 Patient Education: Patient Medication Summary Completed 08/16/2013 Care Plan: C URINE RT Pending 08/16/2013 Appointment: Katy Do WPtel: [address] [place], [place] [phone] Follow up 08/09/2013 Appointment: Ally Manzanares WPtel: [address] [place], [place] [phone] Follow up 08/08/2013 Visit Plan: Diabetes Mellitus [...] glucose control. 06/06/2013 Appointment: Ally Manzanares WPtel: [address] [place], [place] [phone] Follow up 06/06/2013 Patient Education: Patient Medication Summary Completed 06/06/2013 Appointment: Ally Manzanares WPtel: [address] [place], [place] [phone] Follow up 05/12/2013 Visit Plan: Diabetes Mellitus [...] glucose control. 04/26/2013 Appointment: Katy Do WPtel: [phone] Diabetic education 04/26/2013 Patient Education: Patient Medication [...] and hgba1c. 04/14/2013 Appointment: [facility]res WPtel[phone] New Patient 04/14/2013 Patient Education: Patient Medication Summary Completed 04/14/2013 Appointment: Ally Manzanares WPtel: [phone] [facility] New Patient 04/05/2013 Referral: Dr Trujillo Referral [...] pills daily keep metformin at current dose. product picker RX for vitamin D 37159 units weekly. . Diabetes Mellitus - controlled [...] or prn. Joint pain-pleuritic chest pain-swelling of gxzi-zgigszw-rsuzcxo for autoimmune disease such as lupus-plan to [...] glucose control. HOLD METFORMIN X 1 W TAKOTNA RESTART PANTOPRAZOLE DAILY CONTINUE CARAFATE BEFORE MEALS [...] pt is to call for acute concerns. [phone] Samuels and call Sandee to product picker a copy . Elevated glucose-check Hgb A1C Low back pain-will write letter on patient's behalf for insurance precertification Pmfhyzv-wlvzxqyrvj-opub controlled-no changes . Hypertension - wel l controlled - continue with current medications, continue with no added salt diet. Pt has been encouraged to exercise daily. The pt has been advised to call the office if there are any acute concerns about change in blood pressure readings at home. Neck tjqt-gyyrwdinvfokm-xzdbe to Dr Mckee for evaluation-patient has been [...]
--- OUTSIDE RECORDS SUMMARY | 2019-03-04 02:42 | XMS REPORT | CCD ---
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[employer], [employer]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 09/15/2013 Marital status Unknown M arried 04/14/[address]: 813935077 Never smoker 04/14/2013 Alcohol history Unknown occasionally [...] 50 mg tablet,extended release 24 hr RxNorm: 792509 1 Tablet(s) PO daily 05/12/2018 11/07/2018 Active lisinopril 20 mg-hyd rochlorothiazide 12.5 mg tablet RxNorm: 710558 TAKE 1 TABLET BY MOUTH ONCE DAILY 05/03/2018 No Stop Date Active Bactrim DS 800 mg-16 0 mg tablet RxNorm: 528860 1 Tablet(s) PO BID 04/20/2018 04/26/2018 Inactive mupirocin 2 % topica l ointment RxNorm: 544029 1 Application TOP BID 04/20/2018 04/29/2018 Inactive Diflucan 150 mg tablet RxNorm: 321229 1 Tablet(s) PO daily 11/02/2017 11/08/2017 Inactive Wellbutrin XL 300 mg 24 hr tablet, extended release RxNorm: 925865 TAKE 1 TABLET BY MOUTH ONCE DAILY 09/07/2017 10/13/2018 Inactive metoprolol succinate ER 50 mg tablet,extended release 24 hr RxNorm: 985763 1 Tablet(s) PO daily 07/20/2017 01/15/2018 Inactive amitriptyline 25 mg tablet RxNorm: 910376 Tablet(s) 2 TAB(S) PO HS 07/09/2017 10/13/2018 Inactive Bystolic 5 mg tablet RxNorm: 499755 1 Tablet(s) PO daily 06/09/2017 07/08/2017 Inactive metformin 500 mg tablet RxNorm: 276496 1/2 Tablet(s) PO QPM 05/12/2017 05/11/2017 Inactive Vitamin D2 50,000 un it capsule RxNorm: 289915 1 Capsule(s) PO QW 05/12/2017 10/13/2018 Inactive metformin 500 mg tablet RxNorm: 501593 1/2 Tablet(s) PO QPM 05/12/2017 10/13/2018 Inactive lisinopril 20 mg-hyd rochlorothiazide 12.5 mg tablet RxNorm: 751389 1 TABLET(S) PO DAILY 04/23/2017 10/19/2017 Inactive Wellbutrin XL 300 mg 24 hr tablet, extended release RxNorm: 253906 1 Tablet(s) PO daily 1 TABLET(S) PO DAILY 12/01/2016 05/29/2017 Inactive Wellbutrin XL 150 mg 24 hr tablet, extended release RxNorm: 233183 1 TABLET(S) PO DAILY 10/07/2016 11/30/2016 Inactive amitriptyline 25 mg tablet RxNorm: 260909 2 TAB(S) PO HS,INSTR: FOR PAIN AND SLEEP 09/24/2016 07/08/2017 In active amitriptyline 25 mg tablet RxNorm: 061601 2 Tablet(s) PO QHS 09/23/2016 09/23/2016 Inactive meloxicam 15 mg tablet RxNorm: 034725 1 TABLET(S) PO DAILY 09/08/2016 10/13/[address] on hold until pt needs it: she is going to take (2) 7.5mg until gone cetirizine 10 mg tablet RxNorm: 2667215 1 Tablet(s) PO daily 07/22/2016 No Stop Date Active lisinopril 20 mg-hyd rochlorothiazide 12.5 mg tablet RxNorm: 239531 1 TABLET(S) PO DAILY 06/20/2016 12/16/2016 Inactive Wellbutrin XL 150 mg 24 hr tablet, extended release RxNorm: 817014 1 TABLET(S) PO DAILY 05/12/2016 08/09/2016 Inactive Victoza 3-Jean 0.6 mg /0.1 mL (18 mg/3 mL) subcutaneous pen injector RxNorm: 213361 0.6 Milligram(s) SQ daily 03/21/2016 07/21/2016 Inactive NovoFine Plus 32 gau ge x 1/6" needle RxNorm: 1 Miscellaneous daily 03/21/2016 07/21/2016 Inactive NovoFine Plus 32 gau ge x 1/6" needle RxNorm: 1 Miscellaneous daily 03/21/2016 03/20/2016 Inactive Victoza 3-Jean 0.6 mg /0.1 mL (18 mg/3 mL) subcutaneous pen injector RxNorm: 451466 0.6 Milligram(s) SQ daily 03/21/2016 03/20/2016 Inactive Vitamin D2 50,000 un it capsule RxNorm: 429064 1 Capsule(s) PO QW 03/20/2016 06/17/2016 Inactive meloxicam 15 mg tablet RxNorm: 484579 1 Tablet(s) PO daily 03/20/2016 07/17/[address] on hold until pt needs it: she is going to take (2) 7.5mg until gone lisinopril 20 mg-hyd rochlorothiazide 12.5 mg tablet RxNorm: 226110 1 TABLET(S) PO DAILY 02/19/2016 05/18/2016 Inactive Wellbutrin XL 150 mg 24 hr tablet, extended release RxNorm: 936325 1 Tablet(s) PO daily 11/09/2015 03/07/2016 Inactive gabapentin 800 mg ta blet RxNorm: 395021 1 Tablet(s) PO TID 11/09/2015 06/08/2017 Inactive Lexapro 10 mg tablet RxNorm: 353957 1 TABLET(S) PO QPM 11/05/2015 11/08/2015 Inactive lisinopril 20 mg-hyd rochlorothiazide 12.5 mg tablet RxNorm: 053997 1 TABLET(S) PO DAILY 10/18/2015 01/15/2016 Inactive Cipro 500 mg tablet RxNorm: 769210 1 Tablet(s) PO BID 08/17/2015 08/23/2015 Inactive Lexapro 10 mg tablet RxNorm: 781202 1 Tablet(s) PO QPM 07/24/2015 10/21/2015 Inactive Vitamin D2 50,000 un it capsule RxNorm: 058731 1 Capsule(s) PO QW 07/24/2015 10/21/2015 Inactive gabapentin 300 mg ca psule RxNorm: 344987 2 Capsule(s) PO TID 07/16/2015 11/08/2015 Inactive lisinopril 20 mg-hyd rochlorothiazide 12.5 mg tablet RxNorm: 998291 1 TABLET(S) PO DAILY 04/09/2015 07/07/2015 Inactive naproxen 250 mg tablet RxNorm: 276925 1-2 Tablet(s) PO BID as needed for pain 03/08/2015 10/13/2018 In active Fetzima 40 mg capsul e,extended release RxNorm: 1716712 1 Capsule(s) PO adri y 12/22/2014 12/21/2014 In active Fetzima 40 mg capsul e,extended release RxNorm: 4696332 1 Capsule(s) PO adri y 12/22/2014 06/11/2015 In active Xanax 0.5 mg tablet RxNorm: 314802 1 Tablet(s) TAKE 1 TABLET BY MOUTH TWICE DAILY NEEDED FOR ANXIETY 11/17/2014 10/13/2018 Inactive lisinopril 20 mg-hyd rochlorothiazide 12.5 mg tablet RxNorm: 491615 1 Tablet(s) PO daily 11/17/2014 03/16/2015 Inactive Fetzima 20 mg capsul e,extended release RxNorm: 9503704 1 Capsule(s) PO adri y 11/17/2014 12/22/2014 In active Xanax 0.5 mg tablet RxNorm: 053921 1 Tablet(s) TAKE 1 TABLET BY MOUTH TWICE DAILY NEEDED FOR ANXIETY 10/27/2014 11/16/2014 Inactive Xanax 0.5 mg tablet RxNorm: 761128 TAKE 1 TABLET BY MOUTH TWICE DAILY NE EDED FOR ANXIETY 08/25/2014 10/23/2014 Inactive Brintellix 10 mg tablet RxNorm: 1522337 1 Tablet(s) PO daily 07/04/2014 07/03/2014 Inactive Brintellix 10 mg tablet RxNorm: 8204367 1 Tablet(s) PO daily 07/04/2014 11/16/2014 Inactive Brintellix 10 mg tablet RxNorm: 2879730 1 Tablet(s) PO daily 06/09/2014 07/03/2014 Inactive Contrave 8 mg-90 mg tablet,extended release RxNorm: 0712500 2 Tablet(s) PO BID 06/09/2014 09/06/2014 In active 1 tab q am x 1 week, then 1 tab BID x 1 week, then 2 q am and 1 q pm x 1 week then 2 tabs BID thereafter Contrave 8 mg-90 mg tablet,extended release RxNorm: 6510788 2 Tablet(s) PO BID 06/09/2014 06/08/2014 In active 1 tab q am x 1 week, then 1 tab BID x 1 week, then 2 q am and 1 q pm x 1 week then 2 tabs BID thereafter metformin 500 mg tablet RxNorm: 910709 1/2 Tablet(s) PO BID 05/18/2014 09/14/2014 Inactive Brintellix 10 mg tablet RxNorm: 6064063 2 Tablet(s) PO daily 05/16/2014 06/08/2014 Inactive Xanax 0.5 mg tablet RxNorm: 056999 1 Tablet(s) PO BID PRN 04/06/2014 08/25/2014 Inactive Wellbutrin XL 150 mg 24 hr tablet, extended release RxNorm: 531288 1 Tablet(s) PO daily 04/04/2014 05/15/2014 Inactive [SAVINGS FOR UNINSURED PATIENTS -- BIN:0 [id number], PCN: [id number], Group: [place], ID# [id number], Process claim through 28msec, for questions: . THIS IS NOT INSURANCE.] pantoprazole 40 mg t ablet,delayed release RxNorm: 471159 1 Tablet(s) PO daily 12/01/2013 03/30/2014 In active Vitamin D3 2,000 uni t tablet RxNorm: 099147 1 Tablet(s) PO daily 10/10/2013 No Stop Date Active Vitamin D2 50,000 un it capsule RxNorm: 324039 1 Capsule(s) PO QW 10/10/2013 11/16/2014 Inactive vitamin d 50,000 units weekly x 12 weeks then 5000 units daily thereafter escitalopram 20 mg t ablet RxNorm: 413874 1 Tablet(s) PO daily 10/10/2013 04/04/2014 Inactive trazodone 100 mg tablet RxNorm: 179865 1 TABLET(S) PO QHS 09/19/2013 01/16/2014 Inactive trazodone 100 mg tablet RxNorm: 332283 1 Tablet(s) PO QHS 08/16/2013 09/14/2013 Inactive metformin 500 mg tablet RxNorm: 162455 1 Tablet(s) PO BID 08/16/2013 04/03/2014 Inactive Diflucan 150 mg tablet RxNorm: 164847 1 Tablet(s) PO daily 08/16/2013 08/22/2013 Inactive metformin 500 mg tablet RxNorm: 623337 1/2 Tablet(s) PO BID 1/2 tab in the even ing x 1 week then 1/2 tab twice daily 04/26/2013 08/15/2013 Inactive Vitamin D2 50,000 un it capsule RxNorm: 878849 1 Capsule(s) PO QW 04/21/2013 10/09/2013 Inactive vitamin d 50,000 units weekly x 12 weeks then 5000 units daily thereafter Lexapro 10 mg tablet RxNorm: 465929 1 Tablet(s) PO daily 04/14/2013 10/09/2013 Inactive Slow Fe oral RxNorm: 04338 oral No Start Date Active vitamin B complex ca psule RxNorm: 1 Capsule(s) PO daily No Start Date Active lisinopril 20 mg-hyd rochlorothiazide 12.5 mg tablet RxNorm: 882293 1 Tablet(s) PO daily No Start Date 11/16/2014 Inactive gabapentin 300 mg ca psule RxNorm: 830045 1 Capsule(s) PO TID No Start Date 07/15/2015 Inactive cetirizine 10 mg tablet RxNorm: 0543639 1 Tablet(s) PO daily No Start Date 03/05/2016 Inactive tizanidine 2 mg tablet RxNorm: 084358 1 Tablet(s) PO TID No Start Date 10/13/2018 Inactive Vitamin D2 50,000 un it capsule RxNorm: 331528 1 Capsule(s) PO QW No Start Date 04/20/2013 Inactive pantoprazole 40 mg t ablet,delayed release RxNorm: 731889 1 Tablet(s) PO daily No Start Date 10/09/2013 Inactive amitriptyline 10 mg tablet RxNorm: 649502 1 Tablet(s) PO QHS No Start Date 09/22/2016 Inactive meloxicam 7.5 mg tablet RxNorm: 076154 1 Tablet(s) PO daily No Start Date 03/19/2016 Inactive ibuprofen 200 mg tablet RxNorm: 931669 3 Tablet(s) PO TID No Start Date 11/30/2013 Inactive diclofenac 75 mg-mis oprostol 200 mcg tablet,immediate,delayed release RxNorm: 4311567 1 Tablet(s) PO BID No Start Date 10/13/2018 Inactive methocarbamol 500 mg tablet RxNorm: 366981 1 Tablet(s) PO TID No Start Date 10/13/2018 Inactive Advair Diskus 250 mc g-50 mcg/dose powder for inhalation RxNorm: 5494138 2 INH daily No Start Date 07/23/2015 [...] 10/10/2013 Laboratory exam ordered as part of [facility] general medical examination ICD-9: V72.62 10/06/2013 Swelling of extremity ICD-9: 729.81 09/15/2013 JOINT PAIN-UNSPEC ICD-9: 719.40 09/15/2013 Pleuritic chest pain ICD-9: 786.52 09/15/2013 Well woman exam with routine gynecological exam ICD-9: V72.31 09/15/2013 Nasal septal ulcer ICD-9: 478.19 09/15/2013 ANEMIA ICD-9: 285.9 08/07 DM W/O COMPLICATION TYPE II, UNCONTROLLED SNOMED: 06204901 ICD-9: 250.02 08/16/2013 Urinary tract infection ICD-9: [...] Item Item Code Result Date Comp Metabolic Lkd883 NA 139 mEq/L 10/14/2018 Comp Metabolic Mip853 K 4.1 mEq/L 10/14/2018 Comp Metabolic Rko101 CL 103 mEq/L 10/14/2018 Comp Metabolic Zxa616 CO2 27.0 mEq/L 10/14/2018 Comp Metabolic Ons414 AN ION GAP 13 10/14/2018 Comp Metabolic Uip920 GL UCOSE 131 mg/dL 10/14/2018 Comp Metabolic Rdy963 Cr eat 0.7 mg/dL 10/14/2018 Comp Metabolic Rcg792 eG FR 98 ml/min/1.73m2 10/14 Comp Metabolic Xvr703 BUN 12 mg/dL 10/14/2018 Comp Metabolic Kfo491 B/ C Ratio 17.9 Ratio 10/14/2018 Comp Metabolic Hml528 CA LCIUM 9.0 mg/dL 10/14/2018 Comp Metabolic Aji907 AL K PHOS 127 U/L 10/14/2018 Comp Metabolic Fgo809 T(SGOT) 19 U/L 10/14/2018 Comp Metabolic Rhn471 AL T(SGPT) 17 U/L 10/14/2018 Comp Metabolic Odt512 BI LI T 0.3 mg/dL 10/14/2018 Comp Metabolic Irx845 AL BUMIN 4.1 g/dL 10/14/2018 Comp Metabolic Aow818 TP RO 6.8 g/dL 10/14/2018 Comp Metabolic Hwt322 GL OB 2.7 g/dL 10/14/2018 Comp Metabolic Emo884 A/ G Ratio 1.5 Ratio 10/14/2018 Comp Metabolic Dab110 Os mo 279 mOsmo 10/14/2018 Cbc With [...] 24.6 pg 10/14/2018 Cbc With Differential Ord2 [place]% 12.3 % 10/14/2018 Cbc With Differential Ord2 [...] 1.70 K/ul 10/14/2018 Cbc With Differential Ord2 [place] ABS# 0.9 K/ul 10/14/2018 Cbc With Differential Ord2 Eos ABS# 0.1 K/ul 10/14/2018 Cbc With Differential Ord2 Baso ABS# 0.1 K/ul 10/14/2018 %Hba1C Upl673 % HbA1c 57460-4 6.4 % 10/14/2018 %Hba1C Gnz087 Gluc Ave 137 mg/dL 10/14/2018 Tsh Ord6 [...] 24.3 pg 10/13/2017 Cbc With Differential Ord2 [place]% 10.1 % 10/13/2017 Cbc With Differential Ord2 [...] 1.71 K/ul 10/13/2017 Cbc With Differential Ord2 [place] ABS# 0.7 K/ul 10/13/2017 Cbc With Differential Ord2 Eos ABS# 0.1 K/ul 10/13/2017 Cbc With Differential Ord2 Baso ABS# 0.0 K/ul 10/13/2017 %Hba1C Ibl989 % HbA1c 87122-1 6.3 % 10/13/2017 %Hba1C Qjf233 Gluc Ave 134 mg/dL 10/13/2017 Comp Metabolic Ovc492 NA 144 mEq/L 10/13/2017 Comp Metabolic Rng237 K 4.2 mEq/L 10/13/2017 Comp Metabolic Fnd942 CL 110 mEq/L 10/13/2017 Comp Metabolic Xrh464 CO2 25.0 mEq/L 10/13/2017 Comp Metabolic Xyx630 AN ION GAP 13 10/13/2017 Comp Metabolic Rnm776 GL UCOSE 99 mg/dL 10/13/2017 Comp Metabolic Bep119 Cr eat 0.6 mg/dL 10/13/2017 Comp Metabolic Leh395 eG FR 116 ml/min/1.73m2 09/2017 Comp Metabolic Ull500 BUN 11 mg/dL 10/13/2017 Comp Metabolic Ylu893 B/ C Ratio 19.0 Ratio 10/13/2017 Comp Metabolic Ywp957 CA LCIUM 9.1 mg/dL 10/13/2017 Comp Metabolic Kvu608 AL K PHOS 134 U/L 10/13/2017 Comp Metabolic Qsj292 T(SGOT) 18 U/L 10/13/2017 Comp Metabolic Osy005 AL T(SGPT) 17 U/L 10/13/2017 Comp Metabolic Cpo061 BI LI T 0.4 mg/dL 10/13/2017 Comp Metabolic Hdf135 AL BUMIN 4.0 g/dL 10/13/2017 Comp Metabolic Npg685 TP RO 6.6 g/dL 10/13/2017 Comp Metabolic Vth136 GL OB 2.6 g/dL 10/13/2017 Comp Metabolic Yvl768 A/ G Ratio 1.5 Ratio 10/13/2017 Comp Metabolic Fsk381 Os mo 286 mOsmo 10/13/2017 Vitamin D 25 Oh Kpv3022 VITAMIN D, 25 HYDROXY 55.13 ng/mL 10/13/2017 I Fecal Occult Blood Dds8320 IFOB Negative 05/13/2017 B12 Tej447 B12 427.00 pg/ml 05/12/2017 Tibc Ord40 Iron 35 ug/dl 05/12/2017 Tibc Ord40 UIBC 412 ug/dL 05/12/2017 Tibc Ord40 TIBC 447 ug/dL 05/12/2017 Tibc Ord40 Fe-%Sat 7.8 % 05/12/2017 Ferritin Ord22 FERRITIN 7.2 ng/mL 05/12/2017 Comp Metabolic Qtq340 NA 142 mEq/L 05/12/2017 Comp Metabolic Sdv640 K 4.0 mEq/L 05/12/2017 Comp Metabolic Tqz594 CL 106 mEq/L 05/12/2017 Comp Metabolic Gpp576 CO2 26.0 mEq/L 05/12/2017 Comp Metabolic Yra727 AN ION GAP 14 05/12/2017 Comp Metabolic Foy937 GL UCOSE 137 mg/dL 05/12/2017 Comp Metabolic Wej423 Cr eat 0.6 mg/dL 05/12/2017 Comp Metabolic Msx450 eG FR 116 ml/min/1.73m2 08/2017 Comp Metabolic Rbi510 BUN 9 mg/dL 05/12/2017 Comp Metabolic Grn567 B/ C Ratio 15.5 Ratio 05/12/2017 Comp Metabolic Zmq177 CA LCIUM 8.8 mg/dL 05/12/2017 Comp Metabolic Rbg373 AL K PHOS 171 U/L 05/12/2017 Comp Metabolic Ccv335 T(SGOT) 18 U/L 05/12/2017 Comp Metabolic Yyu348 AL T(SGPT) 17 U/L 05/12/2017 Comp Metabolic Zue517 BI LI T 0.2 mg/dL 05/12/2017 Comp Metabolic Fqe300 AL BUMIN 3.9 g/dL 05/12/2017 Comp Metabolic Ewf391 TP RO 6.5 g/dL 05/12/2017 Comp Metabolic Qqo996 GL OB 2.6 g/dL 05/12/2017 Comp Metabolic Dkz814 A/ G Ratio 1.5 Ratio 05/12/2017 Comp Metabolic Ylq989 Os mo 284 mOsmo 05/12/2017 Iron Ord72 Iron 33 ug/dl 05/12/2017 Vitamin D 25 Oh Mth7397 VITAMIN D, 25 HYDROXY 31.02 ng/mL 05/12/2017 [...] 22.0 pg 05/12/2017 Cbc With Differential Ord2 [place]% 8.1 % 05/12/2017 Cbc With Differential Ord2 [...] 1.54 K/ul 05/12/2017 Cbc With Differential Ord2 [place] ABS# 0.6 K/ul 05/12/2017 Cbc With Differential Ord2 Eos ABS# 0.2 K/ul 05/12/2017 Cbc With Differential Ord2 Baso ABS# 0.0 K/ul 05/12/2017 %Hba1C Ndm795 % HbA1c 03219-3 6.6 % 05/12/2017 %Hba1C Lmg979 Gluc Ave 143 mg/dL 05/12/2017 Tsh Ord6 TSH (3rd IS) 3.18 uIU/mL 05/12/2017 Lymes Disease Total Antibodies With Western Blot Refle x [id number] B. BURGDORFERI, IGG/IGM 0.048 12/08/2016 Lymes Disease Total Antibodies With Western Blot Refle x [id number] 12/08/2016 [place] Reflex Profile [id number] ALENA ([place]) SCREEN NONE DETECTED 017 Ehrlichia Chaffeensis Antibody Igm [id number] EHRLICHIA CHAFFEENSIS IGM < 1:16 12/05/2016 [place] Spotted Fever Igg/Igm 87947 3 GUME [place] SPOTTED FEVER IGM EIA . 12/05/2016 [place] Spotted Fever Igg/Igm 25179 3 RMSF, IGM 0.43 index 12/05/2016 [place] Spotted Fever Igg/Igm 83932 3 GUME MT SPOTTED FEVER IGG EIA FLEX . 12/05/2016 [place] Spotted Fever Igg/Igm 38553 3 RMSF, IGG SCREEN-FLEX Negative 12/05/2016 Ehrlichia Chaffeensis Antibody Igg 729991 EHRLICHIA CHAFFEENSIS IGG <1:64 12/05/2016 Tibc Ord40 Iron 37 ug/dl 12/02/2016 Tibc Ord40 UIBC 372 ug/dL 12/02/2016 Tibc Ord40 TIBC 409 ug/dL 12/02/2016 Tibc Ord40 Fe-%Sat 9.0 % 12/02/2016 Ferritin Ord22 FERRITIN 13.9 ng/mL 12/02/2016 B12 Vpx663 B12 344.00 pg/ml 12/02/2016 %Hba1C Sfh380 % HbA1c 04313-9 6.1 % 12/01/2016 %Hba1C Hil721 Gluc Ave 128 mg/dL 12/01/2016 Cbc With [...] 26.2 pg 12/01/2016 Cbc With Differential Ord2 [place]% 8.8 % 12/01/2016 Cbc With Differential Ord2 [...] 1.75 K/ul 12/01/2016 Cbc With Differential Ord2 [place] ABS# 0.6 K/ul 12/01/2016 Cbc With Differential Ord2 Eos ABS# 0.4 K/ul 12/01/2016 Cbc With Differential Ord2 Baso ABS# 0.1 K/ul 12/01/2016 Tsh Ord6 hTSH II 1.80 uIU/mL 12/01/2016 C-Reactive Protein Qnt Crqnt CRP 1.5 mg/dl 12/01/2016 Sed Rate Ord21 ESR 14 mm/hr 12/01/2016 Ra Factor Szf630 RA FACT OR <10 IU/ml 12/01/2016 Vitamin D 25 Oh Imx6640 VITAMIN D, 25 HYDROXY 30.98 ng/mL 12/01/2016 Comp Metabolic Asd558 NA 140 mEq/L 12/01/2016 Comp Metabolic Zfc667 K 3.9 mEq/L 12/01/2016 Comp Metabolic Ypi527 CL 106 mEq/L 12/01/2016 Comp Metabolic Mvu274 CO2 26.0 mEq/L 12/01/2016 Comp Metabolic Jck656 AN ION GAP 12 12/01/2016 Comp Metabolic Bgz271 GL UCOSE 147 mg/dL 12/01/2016 Comp Metabolic Toi729 Cr eat 0.6 mg/dL 12/01/2016 Comp Metabolic Dbz544 eG FR 114 ml/min/1.73m2 11/08 Comp Metabolic Sxz578 BUN 11 mg/dL 12/01/2016 Comp Metabolic Csb689 B/ C Ratio 18.6 Ratio 12/01/2016 Comp Metabolic Lvg556 CA LCIUM 8.8 mg/dL 12/01/2016 Comp Metabolic Zsw012 AL K PHOS 138 U/L 12/01/2016 Comp Metabolic Mwu046 T(SGOT) 34 U/L 12/01/2016 Comp Metabolic Man617 AL T(SGPT) 26 U/L 12/01/2016 Comp Metabolic Xlb412 BI LI T 0.3 mg/dL 12/01/2016 Comp Metabolic Pum772 AL BUMIN 3.8 g/dL 12/01/2016 Comp Metabolic Ujk203 TP RO 6.2 g/dL 12/01/2016 Comp Metabolic Cdq998 GL OB 2.4 g/dL 12/01/2016 Comp Metabolic Szx992 A/ G Ratio 1.6 Ratio 12/01/2016 Comp Metabolic Sot219 Os mo 281 mOsmo 12/01/2016 %Hba1C Suk076 % HbA1c 51963-3 6.3 % 08/05/2016 %Hba1C Isf361 Gluc Ave 134 mg/dL 08/05/2016 Alena [id number] ALENA ([place]) Joshua CHADWICK NONE DETECTED 017 Vitamin D 25 Oh Vnc7439 VITAMIN D, 25 HYDROXY 32.26 ng/mL 03/07/2016 Ra Factor Cbd851 RA FACT OR <10 IU/ml 03/07/2016 C-Reactive Protein Qnt Crqnt CRP 2.0 mg/dl 03/06/2016 Sed Rate Ord21 ESR 32 mm/hr 03/06/2016 %Hba1C Hhg190 % HbA1c 60055-8 6.3 % 03/06/2016 %Hba1C Crg571 Gluc Ave 134 mg/dL 03/06/2016 Comp Metabolic Kik774 NA 138 mEq/L 03/06/2016 Comp Metabolic Swm520 K 4.3 mEq/L 03/06/2016 Comp Metabolic Kpt170 CL 103 mEq/L 03/06/2016 Comp Metabolic Ykl070 CO2 23.0 mEq/L 03/06/2016 Comp Metabolic Jfx741 AN ION GAP 16 03/06/2016 Comp Metabolic Zpz008 GL UCOSE 148 mg/dL 03/06/2016 Comp Metabolic Jqn885 Cr eat 0.6 mg/dL 03/06/2016 Comp Metabolic Wkb890 eG FR 104 ml/min/1.73m2 02/07 Comp Metabolic Rel728 BUN 13 mg/dL 03/06/2016 Comp Metabolic Kjm761 B/ C Ratio 20.3 Ratio 03/06/2016 Comp Metabolic Hok987 CA LCIUM 9.7 mg/dL 03/06/2016 Comp Metabolic Rqs210 AL K PHOS 146 U/L 03/06/2016 Comp Metabolic Dqq414 T(SGOT) 25 U/L 03/06/2016 Comp Metabolic Ydv010 AL T(SGPT) 25 U/L 03/06/2016 Comp Metabolic Yud521 BI LI T 0.3 mg/dL 03/06/2016 Comp Metabolic Tnc798 AL BUMIN 4.1 g/dL 03/06/2016 Comp Metabolic Lwp167 TP RO 6.9 g/dL 03/06/2016 Comp Metabolic Lkd513 GL OB 2.8 g/dL 03/06/2016 Comp Metabolic Nxn053 A/ G Ratio 1.5 Ratio 03/06/2016 Comp Metabolic Wyd626 Os mo 279 mOsmo 03/06/2016 Cbc With [...] 27.1 pg 03/06/2016 Cbc With Differential Ord2 [place]% 9.2 % 03/06/2016 Cbc With Differential Ord2 [...] 1.35 K/ul 03/06/2016 Cbc With Differential Ord2 [place] ABS# 0.5 K/ul 03/06/2016 Cbc With Differential Ord2 Eos ABS# 0.2 K/ul 03/06/2016 Cbc With Differential Ord2 Baso ABS# 0.1 K/ul 03/06/2016 Tsh Ord6 hTSH II 3.61 uIU/mL 03/06/2016 Culture Urine [id number] URI NE CULTURE SEE NOTES 08/20/2015 Culture Urine [id number] Con tinued Results 08/20/2015 Urine Culture Ucult Comp lete Growth of aerobe sent to ref lab 08/18/2015 Vitamin D 25 Oh Xvk5696 VITAMIN D, 25 HYDROXY 24.39 ng/mL 07/18/2015 Comp Metabolic Piv924 NA 136 mEq/L 07/17/2015 Comp Metabolic Bpv189 K 4.0 mEq/L 07/17/2015 Comp Metabolic Jlm403 CL 100 mEq/L 07/17/2015 Comp Metabolic Mfx017 CO2 27.0 mEq/L 07/17/2015 Comp Metabolic Lgg343 AN ION GAP 13 07/17/2015 Comp Metabolic Jcc199 GL UCOSE 121 mg/dL 07/17/2015 Comp Metabolic Cuf330 Cr eat 0.7 mg/dL 07/17/2015 Comp Metabolic Syv038 eG FR 96 ml/min/1.73m2 07/16 Comp Metabolic Mvq094 BUN 10 mg/dL 07/17/2015 Comp Metabolic Cgo500 B/ C Ratio 14.5 Ratio 07/17/2015 Comp Metabolic Gbk687 CA LCIUM 8.9 mg/dL 07/17/2015 Comp Metabolic Pka992 AL K PHOS 146 U/L 07/17/2015 Comp Metabolic Cxs187 T(SGOT) 20 U/L 07/17/2015 Comp Metabolic Wbj927 AL T(SGPT) 22 U/L 07/17/2015 Comp Metabolic Qxa625 BI LI T 0.4 mg/dL 07/17/2015 Comp Metabolic Qvv162 AL BUMIN 4.0 g/dL 07/17/2015 Comp Metabolic Cfx559 TP RO 6.6 g/dL 07/17/2015 Comp Metabolic Xvo896 GL OB 2.6 g/dL 07/17/2015 Comp Metabolic Ovj383 A/ G Ratio 1.6 Ratio 07/17/2015 Comp Metabolic Mfm296 Os mo 272 mOsmo 07/17/2015 Sed Rate [...] 26.1 pg 07/17/2015 Cbc With Differential Ord2 [place]% 12.6 % 07/17/2015 Cbc With Differential Ord2 [...] 1.25 K/ul 07/17/2015 Cbc With Differential Ord2 [place] ABS# 0.9 K/ul 07/17/2015 Cbc With Differential [...] Crqnt CRP 2.9 mg/dl 07/17/2015 GFR CALC 8434209 GFR AA >60 ML/MIN 10/06/2013 GFR CALC 3660472 GFR NON -AA >60 ML/MIN 10/06/2013 CHEM 14 3006394 AST 34 U/L 10/06/2013 CHEM 14 0258215 ALT 30 IU/L 10/06/2013 CHEM 14 6235340 BUN 11 MG/DL 10/06/2013 CHEM 14 1455288 ALBUMIN 4.4 GM/DL 10/06/2013 CHEM 14 8895337 CHLORIDE 107 MMOL/L 10/06/2013 CHEM 14 7691855 BILI TOT 0.4 MG/DL 10/06/2013 CHEM 14 7837137 ALK PHOS 133 U/L 10/06/2013 CHEM 14 3287611 SODIUM 140 MMOL/L 10/06/2013 CHEM 14 1032008 CREATINI NE 0.67 MG/DL 10/06/2013 CHEM 14 9988233 CALCIUM 9.3 MG/DL 10/06/2013 CHEM 14 8298517 POTASSIUM 4.0 MMOL/L 10/06/2013 CHEM 14 8181130 PROT TOT 7.1 GM/DL 10/06/2013 CHEM 14 5442989 GLUCOSE 108 MG/DL 10/06/2013 CHEM 14 1647193 BICARB 25 MMOL/L 10/06/2013 CHEM 14 6234487 ANION GAP 8 MEQ/L 10/06/2013 VIT D TOTL 3357324 VIT D TOTL 37 NG/ML 10/06/2013 GC/CHL PRB 9957770 CHLM PROBE NEG 09/21/2013 GC/CHL PRB 5580654 GC AR OBE NEG 09/21/2013 DNA AB 5633906 DNA AB 36 IU/ML 09/17/2013 RA FACTOR [id number] RA FAC TOR <20.0 IU/ML 09/16/2013 SM MUSC AB 8776314 SM MU SC AB <1:20 09/16/2013 CARDIO G/M [id number] CARDI O IGG 1.7 GPLU 09/16/2013 CARDIO G/M 8381725 CARDI O IGM 4.8 MPLU 09/16/2013 ALENA SCR [id number] ALENA SCR <1:80 09/16/2013 CRP 8198287 CRP 1.1 MG/DL 09/15/2013 ESR 8868446 ESR 22 MM/HR 09/15/2013 CBC 7073535 WBC 5.5 10e9/L 04/26/2013 CBC 6615157 RBC 4.89 10e12/L 04/26/2013 CBC 1786608 HGB 12.8 g/dL 04/26/2013 CBC 0245756 HCT DET 39.5 % 04/26/2013 CBC 6320691 MCV 80.8 fL 04/26/2013 CBC 5072227 MCH 26.2 pg 04/26/2013 CBC 4935662 MCHC 32.4 g/dL 04/26/2013 CBC 9199885 PLT 299 10e9/L 04/26/2013 CBC 9077644 MPV 10.9 fL 04/26/2013 CBC 7931050 WAN % 59.0 % 04/26/2013 CBC 7245867 LY % 29.6 % 04/26/2013 CBC 0196346 MON % 9.1 % 04/26/2013 CBC 1162621 EOS % 1.8 % 04/26/2013 CBC 8878613 BASO % 0.5 % 04/26/2013 CBC 2608242 RDW 13.9 % 04/26/2013 CBC 4418793 ABS WAN 3.25 10e9/L 04/26/2013 CBC 9723889 ABS LYMPH 1.63 10e9/L 04/26/2013 CBC 8298136 ABS MONO 0.50 10e9/L 04/26/2013 CBC 1766768 ABS EOS 0.10 10e9/L 04/26/2013 CBC 4518486 ABS BASO 0.03 10e9/L 04/26/2013 CBC 0302507 RDW-SD 39.9 fL 04/26/2013 URINALYSIS NONAUTO W/O SCOPE 08595 Specific [place] 1.020 DateTime(Free Text in Aprima) URINALYSIS NONAUTO W/O SCOPE 24875 PH 6.0 DateTime(Free Rik t in Apr) URINALYSIS NONAUTO W/O SCOPE 97437 GLUCOSE neg DateTime(Free Rik t in Apr) URINALYSIS NONAUTO W/O SCOPE 31094 Protein neg DateTime(Free Rik t in Apr) URINALYSIS NONAUTO W/O SCOPE 09370 Blood neg DateTime(Free Rik t in Apr) URINALYSIS NONAUTO W/O SCOPE 53361 Bilirubin neg DateTime(Free Rik t in Apr) URINALYSIS NONAUTO W/O SCOPE 92416 Ketones neg DateTime(Free Rik t in Apr) URINALYSIS NONAUTO W/O SCOPE 01452 Urobilinogen neg DateTime(Free Text in ) URINALYSIS NONAUTO W/O SCOPE 75511 Nitrite neg DateTime(Free Rik t in ) URINALYSIS NONAUTO W/O SCOPE 25130 Leukocytes 1+ DateTime(Free Text in ) Review [...] Date URINALYSIS NONAUTO W /O SCOPE CPT-4: 00774 11/02/2017 OCCULT BLOOD FECES CPT- 4: 51789 12/08/2016 IMMUNIZATION ADMIN CPT- 4: 46414 12/07/2015 FLU VACC 4 AMBER 3 YRS PLUS IM SNOMED CT: [id number] CPT-4: 63203 12/07/2015 URINALYSIS NONAUTO W /O SCOPE CPT-4: 71559 08/17/2015 CHEM 14 (COMPREHEN M ETABOLIC PANEL) CPT-4: 72161 10/06/2013 VIT D TOTL (VITAMIN D 25 HYDROXY) CPT-4: 41023 10/06/2013 CRP (C-REACTIVE PROT EIN) CPT-4: 06772 09/15/2013 ESR (RBC SED RATE AU TOMATED) CPT-4: 32543 09/15/2013 ROUTINE VENIPUNCTURE CPT-4: 74208 09/15/2013 URINALYSIS NONAUTO W /O SCOPE CPT-4: 97151 08/16/2013 C URINE RT CPT-4: 7353859 08/16/2013 C URINE RT (URINE CU LTURE/COLONY COUNT) CPT-4: 61066 08/16/2013 ROUTINE VENIPUNCTURE CPT-4: 24205 04/26/2013 Vital Signs Date Vital 10/14/2018 Blood Pressure 1: 140/82 Code: 8480-6 BMI: 37.9 Code: 07212-0 Heart Rate 1: 80 bpm Height: 5'5" SpO2: 96% Weight: 228 lbs 04/22/2018 Heigh t: Weight: 04/20/2018 Blood Pressure 1: 150/90 Code: 8480-6 Heart Rate 1: 104 bpm Height: SpO2: 95% Weight: 11/02/2017 Blood Pressure 1: 130/76 Code: 8480-6 BMI: 37.6 Code: 30349-6 Heart Rate 1: 68 bpm Height: 5'5" SpO2: 98% Weight: 226 lbs 10/13/2017 Blood Pressure 1: 140/86 Code: 8480-6 BMI: 37.4 Code: 30731-8 Heart Rate 1: 78 bpm Height: 5'5" SpO2: 98% Weight: 225 lbs 07/20/2017 Blood Pressure 1: 128/80 Code: 8480-6 BMI: 39.1 Code: 09886-7 Heart Rate 1: 75 bpm Height: 5'5" SpO2: 98% Weight: 235 lbs 06/09/2017 Blood Pressure 1: 150/92 Code: 8480-6 BMI: 39.1 Code: 50514-8 Heart Rate 1: 106 bpm Height: 5'5" SpO2: 98% Weight: 235 lbs 05/12/2017 Blood Pressure 1: 144/68 Code: 8480-6 BMI: 38.9 Code: 59553-2 Heart Rate 1: 89 bpm Height: 5'5" SpO2: 98% Weight: 234 lbs 12/01/2016 Blood Pressure 1: 140/88 Code: 8480-6 BMI: 39.6 Code: 05341-9 Heart Rate 1: 101 bpm Height: 5'5" SpO2: 97% Weight: 238 lbs 08/05/2016 Blood Pressure 1: 134/82 Code: 8480-6 Heart Rate 1: 113 bpm Height: 5'5" SpO2: 98% 07/22/2016 Blood Pressure 1: 142/84 Code: 8480-6 BMI: 39.6 Code: 48040-8 Heart Rate 1: 103 bpm Height: 5'5" SpO2: 97% Weight: 238 lbs 03/06/2016 Blood Pressure 1: 138/86 Code: 8480-6 Heart Rate 1: 100 bpm SpO2: 96% Weight: 246 lbs 12/07/2015 Blood Pressure 1: 140/78 Code: 8480-6 BMI: 40.8 Code: 23904-4 Heart Rate 1: 97 bpm Height: 5'6" SpO2: 98% Weight: 250 lbs 11/09/2015 Blood Pressure 1: 118/84 Code: 8480-6 BMI: 40.7 Code: 38234-7 Heart Rate 1: 85 bpm Height: 5'6" SpO2: 98% Weight: 249 lbs 08/17/2015 Blood Pressure 1: 122/82 Code: 8480-6 BMI: 39.4 Code: 76437-5 Heart Rate 1: 86 bpm Height: 5'6" SpO2: 95% Weight: 241 lbs 07/24/2015 Blood Pressure 1: 118/76 Code: 8480-6 BMI: 39.9 Code: 38367-3 Heart Rate 1: 97 bpm Height: 5'6" SpO2: 96% Weight: 244 lbs 07/16/2015 Blood Pressure 1: 158/80 Code: 8480-6 Blood Pressure 1: 120/86 Code: 8480-6 Heart Rate 1: 105 bpm Height: 5'6" SpO2: 98% Weight: 06/12/2015 Blood Pressure 1: 128/82 Code: 8480-6 BMI: 39.9 Code: 23309-0 Heart Rate 1: 89 bpm Height: 5'6" SpO2: 98% Weight: 244 lbs 03/08/2015 Blood Pressure 1: 130/86 Code: 8480-6 Heart Rate 1: 98 bpm Height: 5'6" SpO2: 97% Weight: 12/29/2014 Blood Pressure 1: 138/88 Code: 8480-6 BMI: 39.2 Code: 57255-4 Heart Rate 1: 109 bpm Height: 5'6" SpO2: 97% Weight: 240 lbs 11/17/2014 Blood Pressure 1: 170/98 Code: 8480-6 BMI: 39.7 Code: 63722-1 Heart Rate 1: 92 bpm Height: 5'6" SpO2: 98% Weight: 243 lbs 05/16/2014 Blood Pressure 1: 130/82 Code: 8480-6 BMI: 39.2 Code: 93756-4 Heart Rate 1: 88 bpm Height: 5'6" Weight: 240 lbs 04/04/2014 Blood Pressure 1: 146/92 Code: 8480-6 Blood Pressure 2: 136/86 Code: 8480-6 BMI: 39.9 Code: 85600-2 Heart Rate 1: 68 bpm Height: 5'6" Weight: 244 lbs 12/01/2013 Blood Pressure 1: 142/80 Code: 8480-6 BMI: 38.4 Code: 42497-2 Heart Rate 1: 80 bpm Height: 5'6" Weight: 235 lbs 10/10/2013 Blood Pressure 1: 128/88 Code: 8480-6 BMI: 38.7 Code: 22865-7 Heart Rate 1: 88 bpm Height: 5'6" Weight: 237 lbs 09/15/2013 Blood Pressure 1: 112/74 Code: 8480-6 BMI: 39.0 Code: 22807-4 Heart Rate 1: 80 bpm Height: 5'6" Weight: 239 lbs 08/16/2013 Blood Pressure 1: 124/64 Code: 8480-6 BMI: 39.0 Code: 88217-6 Heart Rate 1: 88 bpm Height: 5'6" Weight: 239 lbs 06/06/2013 Blood Pressure 1: 120/72 Code: 8480-6 BMI: 37.9 Code: 09309-4 Heart Rate 1: 84 bpm Height: 5'6" Weight: 232 lbs 04/26/2013 Blood Pressure 1: 148/86 Code: 8480-6 BMI: 37.7 Code: 66767-5 Heart Rate 1: 84 bpm Height: 5'6" Weight: 231 lbs 04/14/2013 Blood Pressure 1: 148/92 Code: 8480-6 BMI: 38.2 Code: 27000-4 Heart Rate 1: 88 bpm Height: 5'6" [...] Encounters Encounter Performer Loca tion Codes Date ([id number]) 00211 EST. P ATIENT, LEVEL IV Diagnosis: Essential (primary) hypertension[ICD10: I10] Diagnosis: Type 2 diabetes mellitus with hyperglycemia[ICD10: E11.65] Diagnosis: Cervicalgia[ICD10: M54.2] Diagnosis: Low back pain[ICD10: M54.5] Katy Manzanares MD, [facility] CPT- 4: 42701 10/14/2018 ([id number]) Miscellaneou s no charge Diagnosis: Insect bite (nonvenomous), left lower leg, subsequent encounter[ICD10: S80.862D] Katy Manzanares MD, [facility] CPT-4: 58072 04/22/2018 ([id number]) 02635 EST. P ATIENT, LEVEL III Diagnosis: Insect bite (nonvenomous), left lower leg, initial encounter[ICD10: S80.862A] [facility] CPT-4: 11375 04/20/2018 37013 EST. PATIENT, LEVEL II Diagnosis: Dysuria[ICD10: R30.0] Diagnosis: Other specified conditions associated with female genital organs and menstrual cycle[ICD10: N94.89] Katy Manzanares MD, [facility] CPT-4: 27631 11/02/2017 ([id number]) 32999 EST. 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 P ATIENT, LEVEL III Diagnosis: Essential (primary) hypertension[ICD10: I10] [facility] CPT-4: 55497 07/20/2017 ([id number]) 76599 EST. P ATIENT, LEVEL III Diagnosis: Essential (primary) hypertension[ICD10: I10] [facility] CPT-4: 94099 06/09/2017 ([id number]) 44975 EST. 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 P ATIENT, LEVEL IV Diagnosis: Essential [...] R50.9] [facility] CPT- 4: 48956 12/01/2016 ([id number]) 05357 EST. P ATIENT, LEVEL III Diagnosis: Impaired fasting glucose[ICD10: R73.01] Diagnosis: Low back pain[ICD10: M54.5] Diagnosis: Generalized anxiety disorder[ICD10: F41.1] [facility] CPT-4: 77108 08/05/2016 ([id number]) 51794 EST. P ATIENT, LEVEL III Diagnosis: Essential (primary) hypertension[ICD10: I10] Diagnosis: Radiculopathy, lumbar region[ICD10: M54.16] [facility] CPT-4: 67805 07/22/2016 ([id number]) Miscellaneou s no charge Diagnosis: Dysuria[ICD10: R30.0] [facility] CPT-4: 91386 06/12/2016 ([id number]) 16939 EST. P ATIENT, LEVEL IV Diagnosis: Type 2 diabetes mellitus without complications[ICD10: E11.9] Diagnosis: Vitamin D deficiency, unspecified[ICD10: E55.9] Diagnosis: Generalized anxiety disorder[ICD10: F41.1] Diagnosis: Essential (primary) hypertension[ICD10: I10] Diagnosis: Radiculopathy, cervical region[ICD10: M54.12] Diagnosis: Cardiac murmur, unspecified[ICD10: R01.1] Katy Manzanares MD, [facility] CPT-4: 72515 03/06/2016 ([id number]) 79066 EST. P ATIENT, LEVEL III Diagnosis: Generalized anxiety disorder[ICD10: F41.1] Diagnosis: Major depressive disorder, recurrent, in partial remission[ICD10: F33.41] Katy Manzanares MD, [facility] CPT-4: 77174 12/07/2015 ([id number]) 02624 EST. P ATIENT, LEVEL IV Diagnosis: Essential (primary) hypertension[ICD10: I10] Diagnosis: Generalized anxiety disorder[ICD10: F41.1] Diagnosis: Other obesity due to excess calories[ICD10: E66.09] Katy Manzanares MD, [facility] CPT-4: 55647 11/09/2015 ([id number]) 34802 EST. P ATIENT, LEVEL III Diagnosis: Urinary tract infection, site not specified[ICD10: N39.0] Katy Manzanares MD, [facility] CPT-4: 83276 08/17/2015 ([id number]) 38950 EST. P ATIENT, LEVEL III Diagnosis: Generalized anxiety disorder[ICD10: F41.1] Diagnosis: Major depressive disorder, recurrent, moderate[ICD10: F33.1] Katy Manzanares MD, [facility] CPT-4: 07720 07/24/2015 ([id number]) 76164 EST. P ATIENT, LEVEL IV Diagnosis: Myalgia[ICD10: M79.1] Diagnosis: Low back pain[ICD10: M54.5] Diagnosis: Cervicalgia[ICD10: M54.2] Diagnosis: Essential (primary) hypertension[ICD10: I10] Diagnosis: Vitamin D deficiency, unspecified[ICD10: E55.9] Diagnosis: Generalized anxiety disorder[ICD10: F41.1] Katy Manzanares MD, [facility] CPT-4: 87168 07/16/2015 ([id number]) 22871 EST. P ATIENT, LEVEL IV Diagnosis: Cervicalgia[ICD10: M54.2] Diagnosis: Essential (primary) hypertension[ICD10: I10] Diagnosis: Low back pain[ICD10: M54.5] Diagnosis: Radiculopathy, cervical region[ICD10: M54.12] Katy Manzanares MD, [facility] CPT-4: 32889 06/12/2015 10658 EST. PATIENT, LEVEL III Diagnosis: Sacroiliitis, not elsewhere classified[ICD10: M46.1] Diagnosis: Low back pain[ICD10: M54.5] Diagnosis: Pain in left hip[ICD10: M25.552] Diagnosis: Pain in right hip[ICD10: M25.551] Samantha Manzanares MD, [facility] CPT-4: 89159 03/08/2015 05550 EST. PATIENT, LEVEL III Diagnosis: Anxiety disorder due to known physiological condition[ICD10: F06.4] Diagnosis: Mood disorder due to known physiological condition with depressive features[ICD10: F06.31] Diagnosis: Flushing[ICD10: R23.2] Samantha Manzanares MD, [facility] CPT-4: 50189 12/29/2014 ([id number]) 47521 EST. P ATIENT, LEVEL IV Diagnosis: ESSENTIAL HYPERTENSION[ICD9: 401.9] Diagnosis: Anxiety[ICD9: 300.00] Diagnosis: Depression[ICD9: 311] Katy Manzanares MD, [facility] CPT-4: 28704 11/17/2014 ([id number]) 76301 EST. P ATIENT, LEVEL IV Diagnosis: Anxiety[ICD9: 300.00] Diagnosis: Depression[ICD9: 311] Diagnosis: DIABETES TYPE II[ICD9: 250.00] Diagnosis: Vitamin D deficiency[ICD9: 268.9] Diagnosis: ESSENTIAL HYPERTENSION[ICD9: 401.9] Diagnosis: ABNORMAL WEIGHT GAIN[ICD9: 783.1] Katy Manzanares MD, [facility] CPT- 4: 84509 05/16/2014 ([id number]) 11620 EST. P ATIENT, LEVEL IV Diagnosis: ESSENTIAL HYPERTENSION[ICD9: 401.9] Diagnosis: Anxiety[ICD9: 300.00] Diagnosis: Depression[ICD9: 311] Katy Manzanares MD, [facility] CPT-4: 07139 04/04/2014 ([id number]) 07795 EST. P ATIENT, LEVEL IV Diagnosis: Diarrhea[ICD9: 787.91] Diagnosis: Epigastric pain[ICD9: 789.06] Diagnosis: ESOPHAGEAL REFLUX[ICD9: 530.81] Diagnosis: Blood in stool[ICD9: 578.1] Katy Manzanares MD, [facility] CPT- 4: 29489 12/01/2013 ([id number]) 32316 EST. P ATIENT, LEVEL IV Diagnosis: Vitamin D deficiency[ICD9: 268.9] Diagnosis: DIABETES TYPE II[ICD9: 250.00] Diagnosis: Depression[ICD9: 311] Diagnosis: Insomnia[ICD9: 780.52] Ally Manzanares MD, [facility] CPT-4: 79879 10/10/2013 ([id number]) PREV VISIT E ST AGE 40-64 Diagnosis: Well woman exam with routine gynecological exam[ICD9: V72.31] Diagnosis: JOINT PAIN-UNSPEC[ICD9: 719.40] Diagnosis: Nasal septal ulcer[ICD9: 478.19] Diagnosis: Swelling of extremity[ICD9: 729.81] Diagnosis: Pleuritic chest pain[ICD9: 786.52] Katy Manzanares MD, [facility] CPT-4: 78345 09/15/2013 ([id number]) 75383 EST. P ATIENT, LEVEL IV Diagnosis: DM W/O COMPLICATION TYPE II, UNCONTROLLED[SNOMED: 62965488] Diagnosis: Urinary tract infection[ICD9: 599.0] Diagnosis: DEPRESSIVE DISORDER NEC[ICD9: 311] Diagnosis: Anxiety[ICD9: 300.00] Diagnosis: Insomnia[ICD9: 780.52] Diagnosis: ANEMIA[ICD9: 285.9] Katy Manzanares MD, [facility] CPT-4: 99955 08/16/2013 ([id number]) 84534 EST. P ATIENT, LEVEL III Diagnosis: DM w/o complication type II, uncontrolled[SNOMED: 43963026] [facility] CPT-4: 13363 06/06/2013 ([id number]) 45655 EST. P ATIENT, LEVEL III Diagnosis: DIABETES TYPE II[SNOMED: 311086047] [facility] CPT- 4: 88707 04/26/2013 ([id number]) OFFICE VISI T, NEW - LEVEL 4 Diagnosis: Elevated blood pressure[ICD9: 796.2] Diagnosis: Depression[ICD9: 311] Diagnosis: Elevated alkaline phosphatase level[ICD9: 790.5] Diagnosis: Elevated glucose[ICD9: 790.29] [facility] CPT-4: 46501 04/14/2013 Plan of Care Planned Activity Notes [...] as directed 04/22/2018 Appointment: Katy Do WPtel: [address] [place], [place] [phone] [place] (30 min) Complex 04/22/2018 Patient Education: Patient Medication Summary Completed 04/22/2018 Visit Plan: Cellulitis - start oral antibiotics as directed, return to clinic for wound check, call for acute change in symptoms, worsening redness, warmth, discharge. 04/20/2018 Appointment: Katy Do WPtel: [phone] [phone] (10 min) Simple 04/20/2018 Patient Education: Patient Medication Summary Completed 04/20/2018 Visit Plan: Erythema of labia- dysu vonda -UA negative-yeast infection vs vulvar lichen sclerosis -rx sent to patient's pharmacy and instructed on use -call if symptoms do not resolve of if any worse. Patient verbalized understanding of plan. 11/02/2017 Appointment: Katy Do WPtel: [phone] [phone] (15 min) Moderate 11/02/2017 Patient Education: Patient [...] medications. 10/13/2017 Appointment: Katy Do WPtel: [phone] [phone] (30 min) Complex 10/13/2017 Patient Education: Patient Medication Summary Completed 10/13/2017 Appointment: Katy Do WPtel: [phone] [phone] [place] (15 min) Moderate 08/20/2017 Visit Plan: [...] at home. 07/20/2017 Appointment: Katy Do WPtel: [phone] (15 min) Moderate 07/20/2017 Patient Education: Patient Medication Summary Completed 07/20/2017 Appointment: Katy Do WPtel: [phone] [phone] (15 min) Moderate 07/14/2017 Visit Plan: Hypertension [...] iron supplement 05/12/2017 Appointment: Katy Do WPtel: [phone] (30 min) Complex 05/12/2017 Patient Education: Patient Medication Summary Completed 05/12/2017 Patient Education: Patient Medication Summary Completed 05/12/2017 Care Plan: SCREENINGMAMMOGRAPHYDIGITAL LOINC : 01806-1 Pending 05/12/2017 Appointment: Lab Draw 12/08/2016 Patient [...] tick panel 12/01/2016 Appointment: Katy Do WPtel: [phone] (30 min) Complex 12/01/2016 Patient Education: Patient Medication Summary Completed 12/01/2016 Patient Education: Obesity Completed 12/01/2016 Care Plan: Lymes Disease Antibobies Igg/ Igm Pending 12/01/2016 Visit Plan: Elevated glucose-check Hgb A1C Low back pain-will write letter on patient's behalf for insurance precertification Msjcqzu-mflnsqphcw-[place] controlled-no changes 08/05/2016 Appointment: Katy Do WPtel: [address] [place], [place] [phone] (30 min) Complex 08/05/2016 Patient Education: Patient [...] month. 07/22/2016 [facility]ment[phone] (15 min) Moderate 07/22/2016 Patient Education: [...] murmur-schedule Echo 03/06/2016 Appointment: Kat[facility] Do WPtel: [phone] (30 min) Complex 03/06/2016 Patient Education: [...] current medications. 12/07/2015 Appointment: Kat[facility] Do WPtel: [phone] (30 min) Complex 12/07/2015 Patient Education: [...] check. 11/09/2015 Appointment: Katy Do WPtel: [phone] (30 min) Complex 11/09/2015 Patient Education: Patient Medication Summary Completed 11/09/2015 Patient Education: Obesity Completed 11/09/2015 Care Plan: BMI Above normal followup LOLI F-MGMT EDUC & TRAIN 1 PT Pending 11/09/2015 Appointment: Katy Do WPtel: [phone] (30 min) Complex 11/08/2015 Appointment: Katy Do WPtel: [phone] (15 min) Moderate 08/23/2015 Visit Plan: Urinary [...] level 07/24/2015 Appointment: Katy Do WPtel: [phone] [phone] (30 min) Complex 07/24/2015 Patient Education: Patient [...] in blood pressure readings at home. Neck ijgc-phlvukkdjamtl-aseyz to Dr Mckee for evaluation-patient has been [...] min) Moderate 09/04/2014 Appointment: Katy Do WPtel: [phone] [place] [address] Follow up 07/07/2014 Visit Plan: Anxiety and [...] Hypertension Completed 05/16/2014 Appointment: Katy Do WPtel: [address] [place], [place] [phone] [place] [address] Follow up 05/09/2014 Visit Plan: Hypertension - [...] this patient. 04/04/2014 Appointment: Katy Do WPtel: [phone] Follow up 04/04/2014 Patient Education: Patient [...] 12/01/2013 Care Plan: Referral Order SNOMED-CT : [id number] Ordered 12/01/2013 Visit Plan: Diabetes Mellitus - [...] for insomnia. 10/10/2013 Appointment: [facility]el[phone] [place] Follow up 10/10/2013 Patient Education: Patient Medication Summary Completed 10/10/2013 Appointment: Ally Manzanares WPtel: [phone] [facility] Lab Draw 10/06/2013 Patient Education: Patient Medication Summary Completed 10/06/2013 Appointment: Ally Manzanares WPtel: [facility] [place] Follow up 10/04/2013 Visit Plan: Well [...] or prn. Joint pain-pleuritic chest pain-swelling of vljt-xhxepnk-wovhomr for autoimmune disease such as lupus-plan to check labs and proceed as indicated. Instructed patient we will call her with results of labs. 09/15/2013 Appointment: Kat[facility] Do WPtel[phone] [place] Pap Only 09/15/2013 Patient Education: [...] iron panel 08/16/2013 Appointment: Katy Do WPtel: [phone] Follow up 08/16/2013 Patient Education: Patient Medication Summary Completed 08/16/2013 Care Plan: C URINE RT Pending 08/16/2013 Appointment: Katy Do WPtel: [address] [place], [place] [phone] Follow up 08/09/2013 Appointment: Ally Manzanares WPtel: [address] [place], [place] [phone] Follow up 08/08/2013 Visit Plan: Diabetes Mellitus [...] glucose control. 06/06/2013 Appointment: Ally Manzanares WPtel: [address] [place], [place] [phone] Follow up 06/06/2013 Patient Education: Patient Medication Summary Completed 06/06/2013 Appointment: Ally Manzanares WPtel: [address] [place], [place] [phone] Follow up 05/12/2013 Visit Plan: Diabetes Mellitus [...] glucose control. 04/26/2013 Appointment: Katy Do WPtel: [phone] Diabetic education 04/26/2013 Patient Education: Patient Medication [...] and hgba1c. 04/14/2013 Appointment: Al[facility] Man[facility]anares WPtel: [phone] New Patient 04/14/2013 Patient Education: Patient Medication Summary Completed 04/14/2013 Appointment: Ally Manzanares WPtel: [phone] [facility] New Patient 04/05/2013 Referral: Dr Trujillo Referral [...] pills daily keep metformin at current dose. 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 . Diabetes Mellitus - controlled [...] or prn. Joint pain-pleuritic chest pain-swelling of avth-xfkbgwm-nvnmuad for autoimmune disease such as lupus-plan to [...] glucose control. HOLD METFORMIN X 1 W [place] RESTART PANTOPRAZOLE DAILY CONTINUE CARAFATE BEFORE MEALS [...] pt is to call for acute concerns. 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 Elevated glucose-check Hgb A1C Low back pain-will write letter on patient's behalf for insurance precertification Mqveknp-gewpnkdhrf-whzg controlled-no changes . Hypertension - wel l controlled - continue with current medications, continue with no added salt diet. Pt has been encouraged to exercise daily. The pt has been advised to call the office if there are any acute concerns about change in blood pressure readings at home. Neck naku-mxrssmnykrgsi-ehskv to Dr Mckee for evaluation-patient has been [...]
--- OUTSIDE RECORDS SUMMARY | 2019-03-04 02:43 | XMS REPORT | CCD ---
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[employer], [employer]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 09/15/2013 Marital status Unknown M arried 04/14/[address]: [id number] Never smoker 04/14/2013 Alcohol history Unknown occasionally [...] ICD-9: 268.9 ICD-10: E55.9 Active 03/05/2016 Unknown Anemia, unspecified ICD- 9: 285.9 ICD-10: D64.9 Active 12/02/2016 Unknown Encounter for screen ing mammogram for [...] unspecified ICD-9: 268.9 ICD-10: E55.9 03/05/2016 Active Anemia, unspecified ICD- 9: 285.9 ICD-10: D64.9 12/02/2016 Active Encounter for screen ing mammogram for [...] 50 mg tablet,extended release 24 hr RxNorm: 320056 1 Tablet(s) PO daily 05/12/2018 11/07/2018 Active lisinopril 20 mg-hyd rochlorothiazide 12.5 mg tablet RxNorm: 551319 TAKE 1 TABLET BY MOUTH ONCE DAILY 05/03/2018 No Stop Date Active Bactrim DS 800 mg-16 0 mg tablet RxNorm: 006563 1 Tablet(s) PO BID 04/20/2018 04/26/2018 Inactive mupirocin 2 % topica l ointment RxNorm: 627948 1 Application TOP BID 04/20/2018 04/29/2018 Inactive Diflucan 150 mg tablet RxNorm: 605572 1 Tablet(s) PO daily 11/02/2017 11/08/2017 Inactive Wellbutrin XL 300 mg 24 hr tablet, extended release RxNorm: 024984 TAKE 1 TABLET BY MOUTH ONCE DAILY 09/07/2017 10/13/2018 Inactive metoprolol succinate ER 50 mg tablet,extended release 24 hr RxNorm: 245501 1 Tablet(s) PO daily 07/20/2017 01/15/2018 Inactive amitriptyline 25 mg tablet RxNorm: 043705 Tablet(s) 2 TAB(S) PO HS 07/09/2017 10/13/2018 Inactive Bystolic 5 mg tablet RxNorm: 098020 1 Tablet(s) PO daily 06/09/2017 07/08/2017 Inactive metformin 500 mg tablet RxNorm: 575183 1/2 Tablet(s) PO QPM 05/12/2017 05/11/2017 Inactive Vitamin D2 50,000 un it capsule RxNorm: 359742 1 Capsule(s) PO QW 05/12/2017 10/13/2018 Inactive metformin 500 mg tablet RxNorm: 746657 1/2 Tablet(s) PO QPM 05/12/2017 10/13/2018 Inactive lisinopril 20 mg-hyd rochlorothiazide 12.5 mg tablet RxNorm: 228797 1 TABLET(S) PO DAILY 04/23/2017 10/19/2017 Inactive Wellbutrin XL 300 mg 24 hr tablet, extended release RxNorm: 489986 1 Tablet(s) PO daily 1 TABLET(S) PO DAILY 12/01/2016 05/29/2017 Inactive Wellbutrin XL 150 mg 24 hr tablet, extended release RxNorm: 327647 1 TABLET(S) PO DAILY 10/07/2016 11/30/2016 Inactive amitriptyline 25 mg tablet RxNorm: 560826 2 TAB(S) PO HS,INSTR: FOR PAIN AND SLEEP 09/24/2016 07/08/2017 In active amitriptyline 25 mg tablet RxNorm: 333757 2 Tablet(s) PO QHS 09/23/2016 09/23/2016 Inactive meloxicam 15 mg tablet RxNorm: 215027 1 TABLET(S) PO DAILY 09/08/2016 10/13/[address] on hold until pt needs it: she is going to take (2) 7.5mg until gone cetirizine 10 mg tablet RxNorm: 1163091 1 Tablet(s) PO daily 07/22/2016 No Stop Date Active lisinopril 20 mg-hyd rochlorothiazide 12.5 mg tablet RxNorm: 281719 1 TABLET(S) PO DAILY 06/20/2016 12/16/2016 Inactive Wellbutrin XL 150 mg 24 hr tablet, extended release RxNorm: 957433 1 TABLET(S) PO DAILY 05/12/2016 08/09/2016 Inactive Victoza 3-Jean 0.6 mg /0.1 mL (18 mg/3 mL) subcutaneous pen injector RxNorm: 716984 0.6 Milligram(s) SQ daily 03/21/2016 07/21/2016 Inactive NovoFine Plus 32 gau ge x 1/6" needle RxNorm: 1 Miscellaneous daily 03/21/2016 07/21/2016 Inactive NovoFine Plus 32 gau ge x 1/6" needle RxNorm: 1 Miscellaneous daily 03/21/2016 03/20/2016 Inactive Victoza 3-Jean 0.6 mg /0.1 mL (18 mg/3 mL) subcutaneous pen injector RxNorm: 039098 0.6 Milligram(s) SQ daily 03/21/2016 03/20/2016 Inactive Vitamin D2 50,000 un it capsule RxNorm: 451910 1 Capsule(s) PO QW 03/20/2016 06/17/2016 Inactive meloxicam 15 mg tablet RxNorm: 422246 1 Tablet(s) PO daily 03/20/2016 07/17/[address] on hold until pt needs it: she is going to take (2) 7.5mg until gone lisinopril 20 mg-hyd rochlorothiazide 12.5 mg tablet RxNorm: 298867 1 TABLET(S) PO DAILY 02/19/2016 05/18/2016 Inactive Wellbutrin XL 150 mg 24 hr tablet, extended release RxNorm: 744456 1 Tablet(s) PO daily 11/09/2015 03/07/2016 Inactive gabapentin 800 mg ta blet RxNorm: 552160 1 Tablet(s) PO TID 11/09/2015 06/08/2017 Inactive Lexapro 10 mg tablet RxNorm: 973929 1 TABLET(S) PO QPM 11/05/2015 11/08/2015 Inactive lisinopril 20 mg-hyd rochlorothiazide 12.5 mg tablet RxNorm: 215299 1 TABLET(S) PO DAILY 10/18/2015 01/15/2016 Inactive Cipro 500 mg tablet RxNorm: 929247 1 Tablet(s) PO BID 08/17/2015 08/23/2015 Inactive Lexapro 10 mg tablet RxNorm: 336307 1 Tablet(s) PO QPM 07/24/2015 10/21/2015 Inactive Vitamin D2 50,000 un it capsule RxNorm: 249950 1 Capsule(s) PO QW 07/24/2015 10/21/2015 Inactive gabapentin 300 mg ca psule RxNorm: 840725 2 Capsule(s) PO TID 07/16/2015 11/08/2015 Inactive lisinopril 20 mg-hyd rochlorothiazide 12.5 mg tablet RxNorm: 137764 1 TABLET(S) PO DAILY 04/09/2015 07/07/2015 Inactive naproxen 250 mg tablet RxNorm: 699817 1-2 Tablet(s) PO BID as needed for pain 03/08/2015 10/13/2018 In active Fetzima 40 mg capsul e,extended release RxNorm: 2889663 1 Capsule(s) PO adri y 12/22/2014 12/21/2014 In active Fetzima 40 mg capsul e,extended release RxNorm: 7507526 1 Capsule(s) PO adri y 12/22/2014 06/11/2015 In active Xanax 0.5 mg tablet RxNorm: 752929 1 Tablet(s) TAKE 1 TABLET BY MOUTH TWICE DAILY NEEDED FOR ANXIETY 11/17/2014 10/13/2018 Inactive lisinopril 20 mg-hyd rochlorothiazide 12.5 mg tablet RxNorm: 277744 1 Tablet(s) PO daily 11/17/2014 03/16/2015 Inactive Fetzima 20 mg capsul e,extended release RxNorm: 9243374 1 Capsule(s) PO adri y 11/17/2014 12/22/2014 In active Xanax 0.5 mg tablet RxNorm: 505331 1 Tablet(s) TAKE 1 TABLET BY MOUTH TWICE DAILY NEEDED FOR ANXIETY 10/27/2014 11/16/2014 Inactive Xanax 0.5 mg tablet RxNorm: 751404 TAKE 1 TABLET BY MOUTH TWICE DAILY NE EDED FOR ANXIETY 08/25/2014 10/23/2014 Inactive Brintellix 10 mg tablet RxNorm: 8183666 1 Tablet(s) PO daily 07/04/2014 07/03/2014 Inactive Brintellix 10 mg tablet RxNorm: 2770442 1 Tablet(s) PO daily 07/04/2014 11/16/2014 Inactive Brintellix 10 mg tablet RxNorm: 2607353 1 Tablet(s) PO daily 06/09/2014 07/03/2014 Inactive Contrave 8 mg-90 mg tablet,extended release RxNorm: 2169490 2 Tablet(s) PO BID 06/09/2014 09/06/2014 In active 1 tab q am x 1 week, then 1 tab BID x 1 week, then 2 q am and 1 q pm x 1 week then 2 tabs BID thereafter Contrave 8 mg-90 mg tablet,extended release RxNorm: 6496953 2 Tablet(s) PO BID 06/09/2014 06/08/2014 In active 1 tab q am x 1 week, then 1 tab BID x 1 week, then 2 q am and 1 q pm x 1 week then 2 tabs BID thereafter metformin 500 mg tablet RxNorm: 712880 1/2 Tablet(s) PO BID 05/18/2014 09/14/2014 Inactive Brintellix 10 mg tablet RxNorm: 0220792 2 Tablet(s) PO daily 05/16/2014 06/08/2014 Inactive Xanax 0.5 mg tablet RxNorm: 007844 1 Tablet(s) PO BID PRN 04/06/2014 08/25/2014 Inactive Wellbutrin XL 150 mg 24 hr tablet, extended release RxNorm: 765589 1 Tablet(s) PO daily 04/04/2014 05/15/2014 Inactive [SAVINGS FOR UNINSURED PATIENTS -- BIN:0 [id number], PCN: [id number], Group: MAKENNA, ID# [id number], Process claim through [employer], for questions: . THIS IS NOT INSURANCE.] pantoprazole 40 mg t ablet,delayed release RxNorm: 824021 1 Tablet(s) PO daily 12/01/2013 03/30/2014 In active Vitamin D3 2,000 uni t tablet RxNorm: 395662 1 Tablet(s) PO daily 10/10/2013 No Stop Date Active Vitamin D2 50,000 un it capsule RxNorm: 191946 1 Capsule(s) PO QW 10/10/2013 11/16/2014 Inactive vitamin d 50,000 units weekly x 12 weeks then 5000 units daily thereafter escitalopram 20 mg t ablet RxNorm: 748832 1 Tablet(s) PO daily 10/10/2013 04/04/2014 Inactive trazodone 100 mg tablet RxNorm: 185290 1 TABLET(S) PO QHS 09/19/2013 01/16/2014 Inactive trazodone 100 mg tablet RxNorm: 641447 1 Tablet(s) PO QHS 08/16/2013 09/14/2013 Inactive metformin 500 mg tablet RxNorm: 495283 1 Tablet(s) PO BID 08/16/2013 04/03/2014 Inactive Diflucan 150 mg tablet RxNorm: 161446 1 Tablet(s) PO daily 08/16/2013 08/22/2013 Inactive metformin 500 mg tablet RxNorm: 003210 1/2 Tablet(s) PO BID 1/2 tab in the even ing x 1 week then 1/2 tab twice daily 04/26/2013 08/15/2013 Inactive Vitamin D2 50,000 un it capsule RxNorm: 576548 1 Capsule(s) PO QW 04/21/2013 10/09/2013 Inactive vitamin d 50,000 units weekly x 12 weeks then 5000 units daily thereafter Lexapro 10 mg tablet RxNorm: 415897 1 Tablet(s) PO daily 04/14/2013 10/09/2013 Inactive Slow Fe oral RxNorm: 86330 oral No Start Date Active vitamin B complex ca psule RxNorm: 1 Capsule(s) PO daily No Start Date Active lisinopril 20 mg-hyd rochlorothiazide 12.5 mg tablet RxNorm: 140218 1 Tablet(s) PO daily No Start Date 11/16/2014 Inactive gabapentin 300 mg ca psule RxNorm: 809340 1 Capsule(s) PO TID No Start Date 07/15/2015 Inactive cetirizine 10 mg tablet RxNorm: 8522251 1 Tablet(s) PO daily No Start Date 03/05/2016 Inactive tizanidine 2 mg tablet RxNorm: 309324 1 Tablet(s) PO TID No Start Date 10/13/2018 Inactive Vitamin D2 50,000 un it capsule RxNorm: 391186 1 Capsule(s) PO QW No Start Date 04/20/2013 Inactive pantoprazole 40 mg t ablet,delayed release RxNorm: 159123 1 Tablet(s) PO daily No Start Date 10/09/2013 Inactive amitriptyline 10 mg tablet RxNorm: 385025 1 Tablet(s) PO QHS No Start Date 09/22/2016 Inactive meloxicam 7.5 mg tablet RxNorm: 661805 1 Tablet(s) PO daily No Start Date 03/19/2016 Inactive ibuprofen 200 mg tablet RxNorm: 734233 3 Tablet(s) PO TID No Start Date 11/30/2013 Inactive diclofenac 75 mg-mis oprostol 200 mcg tablet,immediate,delayed release RxNorm: 1976800 1 Tablet(s) PO BID No Start Date 10/13/2018 Inactive methocarbamol 500 mg tablet RxNorm: 989651 1 Tablet(s) PO TID No Start Date 10/13/2018 Inactive Advair Diskus 250 mc g-50 mcg/dose powder for inhalation RxNorm: 5706049 2 INH daily No Start Date 07/23/2015 Inactive Medication Administered No Medication Administered data Immunizations Vaccine Codes Date Status Influenza CVX: 141 12/06 completed Influenza CVX: 141 12/07 completed Influenza CVX: 141 12/27 completed Assessments Condition Codes Effectiv e Dates Cervicalgia ICD-10: M54.2 ICD-9: 723.1 10/14/2018 Low [...] unspecified IC D-10: E55.9 ICD-9: 268.9 10/13/2017 Anemia, unspecified ICD-10: D64.9 ICD-9: 285.9 05/12/2017 Encounter for screening mammogram for ma lignant [...] 10/10/2013 Laboratory exam ordered as part of [facility] general medical examination ICD-9: V72.62 10/06/2013 Swelling of extremity ICD-9: 729.81 09/15/2013 JOINT PAIN-UNSPEC ICD-9: 719.40 09/15/2013 Pleuritic chest pain ICD-9: 786.52 09/15/2013 Well woman exam with routine gynecological exam ICD-9: V72.31 09/15/2013 Nasal septal ulcer ICD-9: 478.19 09/15/2013 ANEMIA ICD-9: 285.9 08/07 DM W/O COMPLICATION TYPE II, UNCONTROLLED SNOMED: [id number] ICD-9: 250.02 08/16/2013 Urinary tract infection ICD-9: [...] Observation Code Item Item Code Result Date Cbc With Differential Ord2 WBC 6.53 K/ul [...] 24.3 pg 10/13/2017 Cbc With Differential Ord2 [place]% 10.1 % 10/13/2017 Cbc With Differential Ord2 [...] 1.71 K/ul 10/13/2017 Cbc With Differential Ord2 [place] ABS# 0.7 K/ul 10/13/2017 Cbc With Differential Ord2 Eos ABS# 0.1 K/ul 10/13/2017 Cbc With Differential Ord2 Baso ABS# 0.0 K/ul 10/13/2017 %Hba1C Rum000 % HbA1c 04560-6 6.3 % 10/13/2017 %Hba1C Nib523 Gluc Ave 134 mg/dL 10/13/2017 Comp Metabolic Xej317 NA 144 mEq/L 10/13/2017 Comp Metabolic Zkw095 K 4.2 mEq/L 10/13/2017 Comp Metabolic Pxk120 CL 110 mEq/L 10/13/2017 Comp Metabolic Isg381 CO2 25.0 mEq/L 10/13/2017 Comp Metabolic Gzr413 AN ION GAP 13 10/13/2017 Comp Metabolic Ynx831 GL UCOSE 99 mg/dL 10/13/2017 Comp Metabolic Emj720 Cr eat 0.6 mg/dL 10/13/2017 Comp Metabolic Uxh453 eG FR 116 ml/min/1.73m2 09/2017 Comp Metabolic Psw180 BUN 11 mg/dL 10/13/2017 Comp Metabolic Lxi377 B/ C Ratio 19.0 Ratio 10/13/2017 Comp Metabolic Pik069 CA LCIUM 9.1 mg/dL 10/13/2017 Comp Metabolic Ybs750 AL K PHOS 134 U/L 10/13/2017 Comp Metabolic Pbg836 T(SGOT) 18 U/L 10/13/2017 Comp Metabolic Ywf543 AL T(SGPT) 17 U/L 10/13/2017 Comp Metabolic Bhb488 BI LI T 0.4 mg/dL 10/13/2017 Comp Metabolic Fdx163 AL BUMIN 4.0 g/dL 10/13/2017 Comp Metabolic Ucg765 TP RO 6.6 g/dL 10/13/2017 Comp Metabolic Bdg589 GL OB 2.6 g/dL 10/13/2017 Comp Metabolic Kak242 A/ G Ratio 1.5 Ratio 10/13/2017 Comp Metabolic Ndx198 Os mo 286 mOsmo 10/13/2017 Vitamin D 25 Oh [id number] VITAMIN D, 25 HYDROXY 55.13 ng/mL 10/13/2017 I Fecal Occult Blood Lyn8911 IFOB Negative 05/13/2017 B12 Ivo559 B12 427.00 pg/ml 05/12/2017 Tibc Ord40 Iron 35 ug/dl 05/12/2017 Tibc Ord40 UIBC 412 ug/dL 05/12/2017 Tibc Ord40 TIBC 447 ug/dL 05/12/2017 Tibc Ord40 Fe-%Sat 7.8 % 05/12/2017 Ferritin Ord22 FERRITIN 7.2 ng/mL 05/12/2017 Comp Metabolic Dlp694 NA 142 mEq/L 05/12/2017 Comp Metabolic Lur686 K 4.0 mEq/L 05/12/2017 Comp Metabolic Xnw122 CL 106 mEq/L 05/12/2017 Comp Metabolic Hdp610 CO2 26.0 mEq/L 05/12/2017 Comp Metabolic Iqg813 AN ION GAP 14 05/12/2017 Comp Metabolic Gwb452 GL UCOSE 137 mg/dL 05/12/2017 Comp Metabolic Rro823 Cr eat 0.6 mg/dL 05/12/2017 Comp Metabolic Zyl512 eG FR 116 ml/min/1.73m2 08/2017 Comp Metabolic Myn762 BUN 9 mg/dL 05/12/2017 Comp Metabolic Cpd134 B/ C Ratio 15.5 Ratio 05/12/2017 Comp Metabolic Ggn955 CA LCIUM 8.8 mg/dL 05/12/2017 Comp Metabolic Wwn105 AL K PHOS 171 U/L 05/12/2017 Comp Metabolic Dni536 T(SGOT) 18 U/L 05/12/2017 Comp Metabolic Dtj941 AL T(SGPT) 17 U/L 05/12/2017 Comp Metabolic Zxw307 BI LI T 0.2 mg/dL 05/12/2017 Comp Metabolic Xyq582 AL BUMIN 3.9 g/dL 05/12/2017 Comp Metabolic Vhf779 TP RO 6.5 g/dL 05/12/2017 Comp Metabolic Qww295 GL OB 2.6 g/dL 05/12/2017 Comp Metabolic Rfv955 A/ G Ratio 1.5 Ratio 05/12/2017 Comp Metabolic Lcd441 Os mo 284 mOsmo 05/12/2017 Iron Ord72 Iron 33 ug/dl 05/12/2017 Vitamin D 25 Oh Jwj3479 VITAMIN D, 25 HYDROXY 31.02 ng/mL 05/12/2017 [...] 22.0 pg 05/12/2017 Cbc With Differential Ord2 [place]% 8.1 % 05/12/2017 Cbc With Differential Ord2 [...] 1.54 K/ul 05/12/2017 Cbc With Differential Ord2 [place] ABS# 0.6 K/ul 05/12/2017 Cbc With Differential Ord2 Eos ABS# 0.2 K/ul 05/12/2017 Cbc With Differential Ord2 Baso ABS# 0.0 K/ul 05/12/2017 %Hba1C Nky249 % HbA1c 62507-4 6.6 % 05/12/2017 %Hba1C Bus609 Gluc Ave 143 mg/dL 05/12/2017 Tsh Ord6 TSH (3rd IS) 3.18 uIU/mL 05/12/2017 Lymes Disease Total Antibodies With Western Blot Refle x 318650 B. BURGDORFERI, IGG/IGM 0.048 12/08/2016 Lymes Disease Total Antibodies With Western Blot Refle x [id number] 12/08/2016 Alena Reflex Profile [id number] ALENA ([place]) SCREEN NONE DETECTED 017 Ehrlichia Chaffeensis Antibody Igm 870654 EHRLICHIA CHAFFEENSIS IGM < 1:16 12/05/2016 [place] Spotted Fever Igg/Igm 07802 3 GUME MT SPOTTED FEVER IGM EIA . 12/05/2016 [place] Spotted Fever Igg/Igm 69667 3 RMSF, IGM 0.43 index 12/05/2016 [place] Spotted Fever Igg/Igm 23301 3 GUME MT SPOTTED FEVER IGG EIA FLEX . 12/05/2016 [place] Spotted Fever Igg/Igm 08273 3 RMSF, IGG SCREEN-FLEX Negative 12/05/2016 Ehrlichia Chaffeensis Antibody Igg 774316 EHRLICHIA CHAFFEENSIS IGG <1:64 12/05/2016 Tibc Ord40 Iron 37 ug/dl 12/02/2016 Tibc Ord40 UIBC 372 ug/dL 12/02/2016 Tibc Ord40 TIBC 409 ug/dL 12/02/2016 Tibc Ord40 Fe-%Sat 9.0 % 12/02/2016 Ferritin Ord22 FERRITIN 13.9 ng/mL 12/02/2016 B12 Tqm563 B12 344.00 pg/ml 12/02/2016 %Hba1C Nql377 % HbA1c 00312-9 6.1 % 12/01/2016 %Hba1C Rdf066 Gluc Ave 128 mg/dL 12/01/2016 Cbc With [...] 26.2 pg 12/01/2016 Cbc With Differential Ord2 [place]% 8.8 % 12/01/2016 Cbc With Differential Ord2 [...] 1.75 K/ul 12/01/2016 Cbc With Differential Ord2 [place] ABS# 0.6 K/ul 12/01/2016 Cbc With Differential Ord2 Eos ABS# 0.4 K/ul 12/01/2016 Cbc With Differential Ord2 Baso ABS# 0.1 K/ul 12/01/2016 Tsh Ord6 hTSH II 1.80 uIU/mL 12/01/2016 C-Reactive Protein Qnt Crqnt CRP 1.5 mg/dl 12/01/2016 Sed Rate Ord21 ESR 14 mm/hr 12/01/2016 Ra Factor Stp353 RA FACT OR <10 IU/ml 12/01/2016 Vitamin D 25 Oh Gxr7763 VITAMIN D, 25 HYDROXY 30.98 ng/mL 12/01/2016 Comp Metabolic Ate993 NA 140 mEq/L 12/01/2016 Comp Metabolic Tke106 K 3.9 mEq/L 12/01/2016 Comp Metabolic Bil389 CL 106 mEq/L 12/01/2016 Comp Metabolic Ivu060 CO2 26.0 mEq/L 12/01/2016 Comp Metabolic Lhi949 AN ION GAP 12 12/01/2016 Comp Metabolic Yev196 GL UCOSE 147 mg/dL 12/01/2016 Comp Metabolic Irw480 Cr eat 0.6 mg/dL 12/01/2016 Comp Metabolic Yfm471 eG FR 114 ml/min/1.73m2 11/08 Comp Metabolic Irl700 BUN 11 mg/dL 12/01/2016 Comp Metabolic Mrc952 B/ C Ratio 18.6 Ratio 12/01/2016 Comp Metabolic Kht905 CA LCIUM 8.8 mg/dL 12/01/2016 Comp Metabolic Jsa999 AL K PHOS 138 U/L 12/01/2016 Comp Metabolic Uut983 T(SGOT) 34 U/L 12/01/2016 Comp Metabolic Nix728 AL T(SGPT) 26 U/L 12/01/2016 Comp Metabolic Jvj254 BI LI T 0.3 mg/dL 12/01/2016 Comp Metabolic Ssd088 AL BUMIN 3.8 g/dL 12/01/2016 Comp Metabolic Brx470 TP RO 6.2 g/dL 12/01/2016 Comp Metabolic Zeh103 GL OB 2.4 g/dL 12/01/2016 Comp Metabolic Rfs635 A/ G Ratio 1.6 Ratio 12/01/2016 Comp Metabolic Kxs380 Os mo 281 mOsmo 12/01/2016 %Hba1C Svn393 % HbA1c 92308-1 6.3 % 08/05/2016 %Hba1C Nac520 Gluc Ave 134 mg/dL 08/05/2016 Alena [id number] ALENA ([place]) S CREEN NONE DETECTED 017 Vitamin D 25 Oh Qxx7234 VITAMIN D, 25 HYDROXY 32.26 ng/mL 03/07/2016 Ra Factor Stk438 RA FACT OR <10 IU/ml 03/07/2016 C-Reactive Protein Qnt Crqnt CRP 2.0 mg/dl 03/06/2016 Sed Rate Ord21 ESR 32 mm/hr 03/06/2016 %Hba1C Pyz846 % HbA1c 14680-5 6.3 % 03/06/2016 %Hba1C Hue429 Gluc Ave 134 mg/dL 03/06/2016 Comp Metabolic Ihx255 NA 138 mEq/L 03/06/2016 Comp Metabolic Nbe929 K 4.3 mEq/L 03/06/2016 Comp Metabolic Ulz722 CL 103 mEq/L 03/06/2016 Comp Metabolic Nwf389 CO2 23.0 mEq/L 03/06/2016 Comp Metabolic Pux258 AN ION GAP 16 03/06/2016 Comp Metabolic Ozq210 GL UCOSE 148 mg/dL 03/06/2016 Comp Metabolic Ndx340 Cr eat 0.6 mg/dL 03/06/2016 Comp Metabolic Vss035 eG FR 104 ml/min/1.73m2 02/07 Comp Metabolic Rfz544 BUN 13 mg/dL 03/06/2016 Comp Metabolic Eeu955 B/ C Ratio 20.3 Ratio 03/06/2016 Comp Metabolic Ras162 CA LCIUM 9.7 mg/dL 03/06/2016 Comp Metabolic Jpo312 AL K PHOS 146 U/L 03/06/2016 Comp Metabolic Tod158 T(SGOT) 25 U/L 03/06/2016 Comp Metabolic Kat376 AL T(SGPT) 25 U/L 03/06/2016 Comp Metabolic Etz837 BI LI T 0.3 mg/dL 03/06/2016 Comp Metabolic Nhu487 AL BUMIN 4.1 g/dL 03/06/2016 Comp Metabolic Jyo576 TP RO 6.9 g/dL 03/06/2016 Comp Metabolic Kqy348 GL OB 2.8 g/dL 03/06/2016 Comp Metabolic Boy346 A/ G Ratio 1.5 Ratio 03/06/2016 Comp Metabolic Yen189 Os mo 279 mOsmo 03/06/2016 Cbc With [...] 27.1 pg 03/06/2016 Cbc With Differential Ord2 [place]% 9.2 % 03/06/2016 Cbc With Differential Ord2 [...] 1.35 K/ul 03/06/2016 Cbc With Differential Ord2 [place] ABS# 0.5 K/ul 03/06/2016 Cbc With Differential Ord2 Eos ABS# 0.2 K/ul 03/06/2016 Cbc With Differential Ord2 Baso ABS# 0.1 K/ul 03/06/2016 Tsh Ord6 hTSH II 3.61 uIU/mL 03/06/2016 Culture Urine [id number] URI NE CULTURE SEE NOTES 08/20/2015 Culture Urine [id number] Con tinued Results 08/20/2015 Urine Culture Ucult Comp lete Growth of aerobe sent to ref lab 08/18/2015 Vitamin D 25 Oh Dgx0934 VITAMIN D, 25 HYDROXY 24.39 ng/mL 07/18/2015 Comp Metabolic Ant649 NA 136 mEq/L 07/17/2015 Comp Metabolic Viu879 K 4.0 mEq/L 07/17/2015 Comp Metabolic Sgr001 CL 100 mEq/L 07/17/2015 Comp Metabolic Dfn910 CO2 27.0 mEq/L 07/17/2015 Comp Metabolic Wni548 AN ION GAP 13 07/17/2015 Comp Metabolic Cdg091 GL UCOSE 121 mg/dL 07/17/2015 Comp Metabolic Pjn845 Cr eat 0.7 mg/dL 07/17/2015 Comp Metabolic Xmg404 eG FR 96 ml/min/1.73m2 07/16 Comp Metabolic Wed015 BUN 10 mg/dL 07/17/2015 Comp Metabolic Tcu698 B/ C Ratio 14.5 Ratio 07/17/2015 Comp Metabolic Jti498 CA LCIUM 8.9 mg/dL 07/17/2015 Comp Metabolic Cmv086 AL K PHOS 146 U/L 07/17/2015 Comp Metabolic Rfd809 T(SGOT) 20 U/L 07/17/2015 Comp Metabolic Tqg522 AL T(SGPT) 22 U/L 07/17/2015 Comp Metabolic Vro017 BI LI T 0.4 mg/dL 07/17/2015 Comp Metabolic Akj433 AL BUMIN 4.0 g/dL 07/17/2015 Comp Metabolic Etv834 TP RO 6.6 g/dL 07/17/2015 Comp Metabolic Dfm963 GL OB 2.6 g/dL 07/17/2015 Comp Metabolic Qrd287 A/ G Ratio 1.6 Ratio 07/17/2015 Comp Metabolic Wbo606 Os mo 272 mOsmo 07/17/2015 Sed Rate [...] 26.1 pg 07/17/2015 Cbc With Differential Ord2 [place]% 12.6 % 07/17/2015 Cbc With Differential Ord2 [...] 1.25 K/ul 07/17/2015 Cbc With Differential Ord2 [place] ABS# 0.9 K/ul 07/17/2015 Cbc With Differential [...] Crqnt CRP 2.9 mg/dl 07/17/2015 GFR CALC 0128542 GFR AA >60 ML/MIN 10/06/2013 GFR CALC 7060787 GFR NON -AA >60 ML/MIN 10/06/2013 CHEM 14 4479961 AST 34 U/L 10/06/2013 CHEM 14 7401049 ALT 30 IU/L 10/06/2013 CHEM 14 6318854 BUN 11 MG/DL 10/06/2013 CHEM 14 3040064 ALBUMIN 4.4 GM/DL 10/06/2013 CHEM 14 3129298 CHLORIDE 107 MMOL/L 10/06/2013 CHEM 14 0221873 BILI TOT 0.4 MG/DL 10/06/2013 CHEM 14 2105933 ALK PHOS 133 U/L 10/06/2013 CHEM 14 1246026 SODIUM 140 MMOL/L 10/06/2013 CHEM 14 8353088 CREATINI NE 0.67 MG/DL 10/06/2013 CHEM 14 7662736 CALCIUM 9.3 MG/DL 10/06/2013 CHEM 14 9922127 POTASSIUM 4.0 MMOL/L 10/06/2013 CHEM 14 7103797 PROT TOT 7.1 GM/DL 10/06/2013 CHEM 14 3552465 GLUCOSE 108 MG/DL 10/06/2013 CHEM 14 3007890 BICARB 25 MMOL/L 10/06/2013 CHEM 14 2784767 ANION GAP 8 MEQ/L 10/06/2013 VIT D TOTL 2825088 VIT D TOTL 37 NG/ML 10/06/2013 GC/CHL PRB 9944745 CHLM PROBE NEG 09/21/2013 GC/CHL PRB 7900792 GC WI OBE NEG 09/21/2013 DNA AB 8606369 DNA AB 36 IU/ML 09/17/2013 RA FACTOR 9264027 RA FAC TOR <20.0 IU/ML 09/16/2013 SM MUSC AB 5898283 SM MU SC AB <1:20 09/16/2013 CARDIO G/M 8225406 CARDI O IGG 1.7 GPLU 09/16/2013 CARDIO G/M 6604346 CARDI O IGM 4.8 MPLU 09/16/2013 ALENA SCR [id number] ALENA SCR <1:80 09/16/2013 CRP 3906943 CRP 1.1 MG/DL 09/15/2013 ESR 5934079 ESR 22 MM/HR 09/15/2013 CBC 3875401 WBC 5.5 10e9/L 04/26/2013 CBC 1284643 RBC 4.89 10e12/L 04/26/2013 CBC 9522463 HGB 12.8 g/dL 04/26/2013 CBC [id number] HCT DET 39.5 % 04/26/2013 CBC [id number] MCV 80.8 fL 04/26/2013 CBC [id number] MCH 26.2 pg 04/26/2013 CBC [id number] MCHC 32.4 g/dL 04/26/2013 CBC [id number] PLT 299 10e9/L 04/26/2013 CBC [id number] MPV 10.9 fL 04/26/2013 CBC [id number] WAN % 59.0 % 04/26/2013 CBC [id number] LY % 29.6 % 04/26/2013 CBC [id number] MON % 9.1 % 04/26/2013 CBC [id number] EOS % 1.8 % 04/26/2013 CBC [id number] BASO % 0.5 % 04/26/2013 CBC [id number] RDW 13.9 % 04/26/2013 CBC [id number] ABS WAN 3.25 10e9/L 04/26/2013 CBC [id number] ABS LYMPH 1.63 10e9/L 04/26/2013 CBC [id number] ABS MONO 0.50 10e9/L 04/26/2013 CBC [id number] ABS EOS 0.10 10e9/L 04/26/2013 CBC [id number] ABS BASO 0.03 10e9/L 04/26/2013 CBC [id number] RDW-SD 39.9 fL 04/26/2013 URINALYSIS NONAUTO W/O SCOPE 39007 Specific [place] 1.020 DateTime(Free Text in [employer]) URINALYSIS NONAUTO W/O SCOPE 31667 PH 6.0 DateTime(Free Rik t in [employer]) URINALYSIS NONAUTO W/O SCOPE 41227 GLUCOSE neg DateTime(Free Rik t in [employer]) URINALYSIS NONAUTO W/O SCOPE 95370 Protein neg DateTime(Free Rik t in [employer]) URINALYSIS NONAUTO W/O SCOPE 54788 Blood neg DateTime(Free Rik t in [employer]) URINALYSIS NONAUTO W/O SCOPE 73966 Bilirubin neg DateTime(Free Rik t in [employer]) URINALYSIS NONAUTO W/O SCOPE 92547 Ketones neg DateTime(Free Rik t in [employer]) URINALYSIS NONAUTO W/O SCOPE 08833 Urobilinogen neg DateTime(Free Text in [employer]) URINALYSIS NONAUTO W/O SCOPE 47532 Nitrite neg DateTime(Free Rik t in [employer]) URINALYSIS NONAUTO W/O SCOPE 38333 Leukocytes 1+ DateTime(Free Text in [employer]) Review of Systems System Result Effective Dates [...] No alteration of consciousness 10/13/2017 Psychiatric anxiety 0809/2017 Psychiatric depression 0 10/13/2017 Endocrine No dry [...] 07/24/2015 Psychiatric depression 0 07/24/2015 Psychiatric anxiety 0509/2015 Constitutional recent illness 07/16/2015 Constitutional No anorexia [...] No alteration of consciousness 07/16/2015 Psychiatric anxiety 050 11/2015 Psychiatric depression 0 07/16/2015 Constitutional No [...] Cardiovascular auscultation of heart Systolic murmur location: SB 03/06/2016 None Full Exam - General 1994 [...] distress 04/26/2013 None Full Exam - General 1995 Constitutional general appearance Overall: well nourished 04/26/2013 [...] masses 04/14/2013 None Full Exam - General 1995 Ears/Nose/Throat oral cavity/pharynx/larynx Overall: oral mucosa clear [...] Date URINALYSIS NONAUTO W /O SCOPE CPT-4: 89298 11/02/2017 OCCULT BLOOD FECES CPT- 4: 98466 12/08/2016 IMMUNIZATION ADMIN CPT- 4: 36914 12/07/2015 FLU VACC 4 AMBER 3 YRS PLUS IM SNOMED CT: [id number] CPT-4: 97774 12/07/2015 URINALYSIS NONAUTO W /O SCOPE CPT-4: 10297 08/17/2015 CHEM 14 (COMPREHEN M ETABOLIC PANEL) CPT-4: 11108 10/06/2013 VIT D TOTL (VITAMIN D 25 HYDROXY) CPT-4: 65717 10/06/2013 CRP (C-REACTIVE PROT EIN) CPT-4: 65600 09/15/2013 ESR (RBC SED RATE AU TOMATED) CPT-4: 03382 09/15/2013 ROUTINE VENIPUNCTURE CPT-4: 80070 09/15/2013 URINALYSIS NONAUTO W /O SCOPE CPT-4: 86057 08/16/2013 C URINE RT CPT-4: 6131386 08/16/2013 C URINE RT (URINE CU LTURE/COLONY COUNT) CPT-4: 96253 08/16/2013 ROUTINE VENIPUNCTURE CPT-4: 21337 04/26/2013 Vital Signs Date Vital 10/14/2018 Blood Pressure 1: 140/82 Code: 8480-6 BMI: 37.9 Code: 48751-2 Heart Rate 1: 80 bpm Height: 5'5" SpO2: 96% Weight: 228 lbs 04/22/2018 Heigh t: Weight: 04/20/2018 Blood Pressure 1: 150/90 Code: 8480-6 Heart Rate 1: 104 bpm Height: SpO2: 95% Weight: 11/02/2017 Blood Pressure 1: 130/76 Code: 8480-6 BMI: 37.6 Code: 90476-8 Heart Rate 1: 68 bpm Height: 5'5" SpO2: 98% Weight: 226 lbs 10/13/2017 Blood Pressure 1: 140/86 Code: 8480-6 BMI: 37.4 Code: 91257-7 Heart Rate 1: 78 bpm Height: 5'5" SpO2: 98% Weight: 225 lbs 07/20/2017 Blood Pressure 1: 128/80 Code: 8480-6 BMI: 39.1 Code: 00636-2 Heart Rate 1: 75 bpm Height: 5'5" SpO2: 98% Weight: 235 lbs 06/09/2017 Blood Pressure 1: 150/92 Code: 8480-6 BMI: 39.1 Code: 27027-4 Heart Rate 1: 106 bpm Height: 5'5" SpO2: 98% Weight: 235 lbs 05/12/2017 Blood Pressure 1: 144/68 Code: 8480-6 BMI: 38.9 Code: 82496-7 Heart Rate 1: 89 bpm Height: 5'5" SpO2: 98% Weight: 234 lbs 12/01/2016 Blood Pressure 1: 140/88 Code: 8480-6 BMI: 39.6 Code: 59325-5 Heart Rate 1: 101 bpm Height: 5'5" SpO2: 97% Weight: 238 lbs 08/05/2016 Blood Pressure 1: 134/82 Code: 8480-6 Heart Rate 1: 113 bpm Height: 5'5" SpO2: 98% 07/22/2016 Blood Pressure 1: 142/84 Code: 8480-6 BMI: 39.6 Code: 92994-0 Heart Rate 1: 103 bpm Height: 5'5" SpO2: 97% Weight: 238 lbs 03/06/2016 Blood Pressure 1: 138/86 Code: 8480-6 Heart Rate 1: 100 bpm SpO2: 96% Weight: 246 lbs 12/07/2015 Blood Pressure 1: 140/78 Code: 8480-6 BMI: 40.8 Code: 48488-0 Heart Rate 1: 97 bpm Height: 5'6" SpO2: 98% Weight: 250 lbs 11/09/2015 Blood Pressure 1: 118/84 Code: 8480-6 BMI: 40.7 Code: 77507-2 Heart Rate 1: 85 bpm Height: 5'6" SpO2: 98% Weight: 249 lbs 08/17/2015 Blood Pressure 1: 122/82 Code: 8480-6 BMI: 39.4 Code: 48388-0 Heart Rate 1: 86 bpm Height: 5'6" SpO2: 95% Weight: 241 lbs 07/24/2015 Blood Pressure 1: 118/76 Code: 8480-6 BMI: 39.9 Code: 20253-4 Heart Rate 1: 97 bpm Height: 5'6" SpO2: 96% Weight: 244 lbs 07/16/2015 Blood Pressure 1: 158/80 Code: 8480-6 Blood Pressure 1: 120/86 Code: 8480-6 Heart Rate 1: 105 bpm Height: 5'6" SpO2: 98% Weight: 06/12/2015 Blood Pressure 1: 128/82 Code: 8480-6 BMI: 39.9 Code: 37207-1 Heart Rate 1: 89 bpm Height: 5'6" SpO2: 98% Weight: 244 lbs 03/08/2015 Blood Pressure 1: 130/86 Code: 8480-6 Heart Rate 1: 98 bpm Height: 5'6" SpO2: 97% Weight: 12/29/2014 Blood Pressure 1: 138/88 Code: 8480-6 BMI: 39.2 Code: 99491-4 Heart Rate 1: 109 bpm Height: 5'6" SpO2: 97% Weight: 240 lbs 11/17/2014 Blood Pressure 1: 170/98 Code: 8480-6 BMI: 39.7 Code: 03017-8 Heart Rate 1: 92 bpm Height: 5'6" SpO2: 98% Weight: 243 lbs 05/16/2014 Blood Pressure 1: 130/82 Code: 8480-6 BMI: 39.2 Code: 01748-9 Heart Rate 1: 88 bpm Height: 5'6" Weight: 240 lbs 04/04/2014 Blood Pressure 1: 146/92 Code: 8480-6 Blood Pressure 2: 136/86 Code: 8480-6 BMI: 39.9 Code: 24007-2 Heart Rate 1: 68 bpm Height: 5'6" Weight: 244 lbs 12/01/2013 Blood Pressure 1: 142/80 Code: 8480-6 BMI: 38.4 Code: 78738-3 Heart Rate 1: 80 bpm Height: 5'6" Weight: 235 lbs 10/10/2013 Blood Pressure 1: 128/88 Code: 8480-6 BMI: 38.7 Code: 81454-2 Heart Rate 1: 88 bpm Height: 5'6" Weight: 237 lbs 09/15/2013 Blood Pressure 1: 112/74 Code: 8480-6 BMI: 39.0 Code: 20081-9 Heart Rate 1: 80 bpm Height: 5'6" Weight: 239 lbs 08/16/2013 Blood Pressure 1: 124/64 Code: 8480-6 BMI: 39.0 Code: 17034-7 Heart Rate 1: 88 bpm Height: 5'6" Weight: 239 lbs 06/06/2013 Blood Pressure 1: 120/72 Code: 8480-6 BMI: 37.9 Code: 07853-5 Heart Rate 1: 84 bpm Height: 5'6" Weight: 232 lbs 04/26/2013 Blood Pressure 1: 148/86 Code: 8480-6 BMI: 37.7 Code: 44314-4 Heart Rate 1: 84 bpm Height: 5'6" Weight: 231 lbs 04/14/2013 Blood Pressure 1: 148/92 Code: 8480-6 BMI: 38.2 Code: 70450-7 Heart Rate 1: 88 bpm Height: 5'6" [...] red ness 04/20/2018 None [facility] 11/02/2017 None rash Onset and Resolution [...] Encounter Performer Loca tion Codes Date ( 09275 EST. P ATIENT, LEVEL IV Diagnosis: Essential (primary) hypertension[ICD10: I10] Diagnosis: Type 2 diabetes mellitus with hyperglycemia[ICD10: E11.65] Diagnosis: Cervicalgia[ICD10: M54.2] Diagnosis: Low back pain[ICD10: M54.5] Katy Manzanares MD, [facility] CPT- 4: 73058 10/14/2018 ([id number]) Miscellaneou s no charge Diagnosis: Insect bite (nonvenomous), left lower leg, subsequent encounter[ICD10: S80.862D] Katy Manzanares MD, [facility] CPT-4: 80116 04/22/2018 ([id number]) 03817 EST. P ATIENT, LEVEL III Diagnosis: Insect bite (nonvenomous), left lower leg, initial encounter[ICD10: S80.862A] Katy Manzanares MD, [facility] CPT-4: 41330 04/20/2018 03010 EST. PATIENT, LEVEL II Diagnosis: Dysuria[ICD10: R30.0] Diagnosis: Other specified conditions associated with female genital organs and menstrual cycle[ICD10: N94.89] [facility] CPT-4: 07371 11/02/2017 ([id number]) 89168 EST. 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 P ATIENT, LEVEL III Diagnosis: Essential (primary) hypertension[ICD10: I10] Katy Manzanares MD, [facility] CPT-4: 02801 07/20/2017 ([id number]) 55600 EST. P ATIENT, LEVEL III Diagnosis: Essential (primary) hypertension[ICD10: I10] Katy Manzanares MD, [facility] CPT-4: 49441 06/09/2017 ([id number]) 62749 EST. 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 P ATIENT, LEVEL IV Diagnosis: Essential [...] Diagnosis: Fever, unspecified[ICD10: R50.9] Katy Manzanares MD, [facility] CPT- 4: 42439 12/01/2016 ([id number]) 97043 EST. P ATIENT, LEVEL III Diagnosis: Impaired fasting glucose[ICD10: R73.01] Diagnosis: Low back pain[ICD10: M54.5] Diagnosis: Generalized anxiety disorder[ICD10: F41.1] Katy Manzanares MD, [facility] CPT-4: 38049 08/05/2016 ([id number]) 64095 EST. P ATIENT, LEVEL III Diagnosis: Essential (primary) hypertension[ICD10: I10] Diagnosis: Radiculopathy, lumbar region[ICD10: M54.16] Katy Manzanares MD, [facility] CPT-4: 16461 07/22/2016 ([id number]) Miscellaneou s no charge Diagnosis: Dysuria[ICD10: R30.0] Ally Manzanares MD, [facility] CPT-4: 63679 06/12/2016 ([id number]) 24266 EST. P ATIENT, LEVEL IV Diagnosis: Type 2 diabetes mellitus without complications[ICD10: E11.9] Diagnosis: Vitamin D deficiency, unspecified[ICD10: E55.9] Diagnosis: Generalized anxiety disorder[ICD10: F41.1] Diagnosis: Essential (primary) hypertension[ICD10: I10] Diagnosis: Radiculopathy, cervical region[ICD10: M54.12] Diagnosis: Cardiac murmur, unspecified[ICD10: R01.1] Katy Manzanares MD, [facility] CPT-4: 85459 03/06/2016 ([id number]) 31058 EST. P ATIENT, LEVEL III Diagnosis: Generalized anxiety disorder[ICD10: F41.1] Diagnosis: Major depressive disorder, recurrent, in partial remission[ICD10: F33.41] Katy Manzanares MD, [facility] CPT-4: 38546 12/07/2015 ([id number]) 37198 EST. P ATIENT, LEVEL IV Diagnosis: Essential (primary) hypertension[ICD10: I10] Diagnosis: Generalized anxiety disorder[ICD10: F41.1] Diagnosis: Other obesity due to excess calories[ICD10: E66.09] Katy Manzanares MD, [facility] CPT-4: 80427 11/09/2015 ([id number]) 01104 EST. [facility]: Urinary tract infection, site not specified[ICD10: N39.0] Katy Manzanares MD, [facility] CPT-4: 62909 08/17/2015 ([id number]) 57189 EST. P ATIENT, LEVEL III Diagnosis: Generalized anxiety disorder[ICD10: F41.1] Diagnosis: Major depressive disorder, recurrent, moderate[ICD10: F33.1] Katy Manzanares MD, [facility] CPT-4: 05471 07/24/2015 ([id number]) 63465 EST. P ATIENT, LEVEL IV Diagnosis: Myalgia[ICD10: M79.1] Diagnosis: Low back pain[ICD10: M54.5] Diagnosis: Cervicalgia[ICD10: M54.2] Diagnosis: Essential (primary) hypertension[ICD10: I10] Diagnosis: Vitamin D deficiency, unspecified[ICD10: E55.9] Diagnosis: Generalized anxiety disorder[ICD10: F41.1] Katy Manzanares MD, [facility] CPT-4: 99212 07/16/2015 ([id number]) 63701 EST. P ATIENT, LEVEL IV Diagnosis: Cervicalgia[ICD10: M54.2] Diagnosis: Essential (primary) hypertension[ICD10: I10] Diagnosis: Low back pain[ICD10: M54.5] Diagnosis: Radiculopathy, cervical region[ICD10: M54.12] Katy Manzanares MD, [facility] CPT-4: 27799 06/12/2015 03545 EST. PATIENT, LEVEL III Diagnosis: Sacroiliitis, not elsewhere classified[ICD10: M46.1] Diagnosis: Low back pain[ICD10: M54.5] Diagnosis: Pain in left hip[ICD10: M25.552] Diagnosis: Pain in right hip[ICD10: M25.551] Samantha Manzanares MD, [facility] CPT-4: 07899 03/08/2015 44966 EST. 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 P ATIENT, LEVEL IV Diagnosis: ESSENTIAL HYPERTENSION[ICD9: 401.9] Diagnosis: Anxiety[ICD9: 300.00] Diagnosis: Depression[ICD9: 311] Katy Manzanares MD, [facility] CPT-4: 53112 11/17/2014 ([id number]) 50707 EST. P ATIENT, LEVEL IV Diagnosis: Anxiety[ICD9: 300.00] Diagnosis: Depression[ICD9: 311] Diagnosis: DIABETES TYPE II[ICD9: 250.00] Diagnosis: Vitamin D deficiency[ICD9: 268.9] Diagnosis: ESSENTIAL HYPERTENSION[ICD9: 401.9] Diagnosis: ABNORMAL WEIGHT GAIN[ICD9: 783.1] Katy Manzanares MD, [facility] CPT- 4: 59455 05/16/2014 ([id number]) 83825 EST. P ATIENT, LEVEL IV Diagnosis: ESSENTIAL HYPERTENSION[ICD9: 401.9] Diagnosis: Anxiety[ICD9: 300.00] Diagnosis: Depression[ICD9: 311] Katy Manzanares MD, [facility] CPT-4: 55894 04/04/2014 ([id number]) 87059 EST. P ATIENT, LEVEL IV Diagnosis: Diarrhea[ICD9: 787.91] Diagnosis: Epigastric pain[ICD9: 789.06] Diagnosis: ESOPHAGEAL REFLUX[ICD9: 530.81] Diagnosis: Blood in stool[ICD9: 578.1] Katy Manzanares MD, [facility] CPT- 4: 38455 12/01/2013 ([id number]) 18667 EST. P ATIENT, LEVEL IV Diagnosis: Vitamin D deficiency[ICD9: 268.9] Diagnosis: DIABETES TYPE II[ICD9: 250.00] Diagnosis: Depression[ICD9: 311] Diagnosis: Insomnia[ICD9: 780.52] Ally Manzanares MD, [facility] CPT-4: 72747 10/10/2013 ([id number]) PREV VISIT E ST AGE 40-64 Diagnosis: Well woman exam with routine gynecological exam[ICD9: V72.31] Diagnosis: JOINT PAIN-UNSPEC[ICD9: 719.40] Diagnosis: Nasal septal ulcer[ICD9: 478.19] Diagnosis: Swelling of extremity[ICD9: 729.81] Diagnosis: Pleuritic chest pain[ICD9: 786.52] [facility] CPT-4: 40204 09/15/2013 ([id number]) 31478 EST. P ATIENT, LEVEL IV Diagnosis: DM W/O COMPLICATION TYPE II, UNCONTROLLED[SNOMED: 03938230] Diagnosis: Urinary tract infection[ICD9: 599.0] Diagnosis: DEPRESSIVE DISORDER NEC[ICD9: 311] Diagnosis: Anxiety[ICD9: 300.00] Diagnosis: Insomnia[ICD9: 780.52] Diagnosis: ANEMIA[ICD9: 285.9] [facility] CPT-4: 99335 08/16/2013 ([id number]) 00168 EST. P ATIENT, LEVEL III Diagnosis: DM w/o complication type II, uncontrolled[SNOMED: 87744054] [facility] CPT-4: 90158 06/06/2013 ([id number] 13494 EST. P ATIENT, LEVEL III Diagnosis: DIABETES TYPE II[SNOMED: 663643675] [facility] CPT- 4: 29502 04/26/2013 ([id number]) OFFICE VISI T, NEW - LEVEL 4 Diagnosis: Elevated blood pressure[ICD9: 796.2] Diagnosis: Depression[ICD9: 311] Diagnosis: Elevated alkaline phosphatase level[ICD9: 790.5] Diagnosis: Elevated glucose[ICD9: 790.29] [facility] CPT-4: 18401 04/14/2013 Plan of Care Planned Activity Notes [...] Education: Back Pain Completed 10/14/2018 Care Plan: Comp Metabolic Pending 10/14/2018 Care Plan: Cbc With Differential Pending 10/14/2018 Care Plan: %Hba1C LOIN C : 63418-5 Pending 10/14/2018 Care Plan: Tsh Pending 10/14/2018 Care Plan: Lipid Pending 10/14/2018 Visit Plan: Spdier bite -much impro itzel-return next Thursday for follow up -continue wound care as directed 04/22/2018 Appointment: Katy Do WPtel: [address] [place], [place] [phone] (30 min) Complex 04/22/2018 Patient Education: Patient Medication Summary Completed 04/22/2018 Visit Plan: Cellulitis - start oral antibiotics as directed, return to clinic for wound check, call for acute change in symptoms, worsening redness, warmth, discharge. 04/20/2018 Appointment: Katy Do WPtel: [address] [place], [place] [phone] (10 min) Simple 04/20/2018 Patient Education: Patient Medication Summary Completed 04/20/2018 Visit Plan: Erythema of labia- dysu vonda -UA negative-yeast infection vs vulvar lichen sclerosis -rx sent to patient's pharmacy and instructed on use -call if symptoms do not resolve of if any worse. Patient verbalized understanding of plan. 11/02/2017 Appointment: Katy Do WPtel: [address] [place], [place] [phone] (15 min) Moderate 11/02/2017 Patient Education: Patient [...] current medications. 10/13/2017 Appointment: Katy Do WPtel: [address] [place] [address] (30 min) Complex 10/13/2017 Patient Education: Patient Medication Summary Completed 10/13/2017 Appointment: Katy Do WPtel: [address] [place] [address] (15 min) Moderate 08/20/2017 Visit Plan: Hypertension - well con trolled but bystolic is not covered-will switch to metoprolol- continue other medications, continue with no added salt diet. Pt has been encouraged to exercise daily. The pt has been advised to call the office if there are any acute concerns about change in blood pressure readings at home. 07/20/2017 Appointment: Katy Do WPtel: [phone] (15 min) Moderate 07/20/2017 Patient Education: Patient Medication Summary Completed 07/20/2017 Appointment: Katy Do WPtel: [phone] (15 min) Moderate 07/14/2017 Visit Plan: Hypertension [...] iron supplement 05/12/2017 Appointment: Katy Do WPtel: [phone] (30 min) [facility] 05/12/2017 Patient Education: Patient Medication Summary Completed 05/12/2017 Patient Education: Patient Medication Summary Completed 05/12/2017 Care Plan: SCREENINGMAMMOGRAPHYDIGITAL LOINC : 88712-8 Pending 05/12/2017 Appointment: Lab Draw 12/08/2016 Patient [...] inflammatory labs including tick panel 12/01/2016 Appointment: aKty Do WPtel: [address] [phone] (30 min) Complex 12/01/2016 Patient Education: Patient Medication Summary Completed 12/01/2016 Patient Education: Obesity Completed 12/01/2016 Care Plan: Lymes Disease Antibobies Igg/ Igm Pending 12/01/2016 Visit Plan: Elevated glucose-check Hgb A1C Low back pain-will write letter on patient's behalf for insurance precertification Anvmbxg-fmyjpximfs-xrow controlled-no changes 08/05/2016 Appointment: Kat[facility] Do WPtel[phone] (30 min) Complex 08/05/2016 Patient Education: Patient [...] next month. 07/22/2016 Appointment: Katy Do WPtel: [phone] (15 min) Moderate 07/22/2016 Patient Education: Patient [...] murmur-schedule Echo 03/06/2016 Appointment[phone] [phone] (30 min) Complex 03/06/2016 Patient Education: [...] current medications. 12/07/2015 Appointment: Katy Do WPtel: [facility] [address] (30 min) Complex 12/07/2015 Patient Education: Patient [...] weight check. 11/09/2015 Appointment: Katy Do WPtel: [phone] (30 min) Complex 11/09/2015 Patient Education: Patient Medication Summary Completed 11/09/2015 Patient Education: Obesity Completed 11/09/2015 Care Plan: BMI Above normal followup LOLI F-MGMT EDUC & TRAIN 1 PT Pending 11/09/2015 Appointment: Katy Do WPtel: [address] [place], [place] [phone] (30 min) Complex 11/08/2015 Appointment: Katy Do WPtel: [address] [place], [place] [phone] (15 min) Moderate 08/23/2015 Visit Plan: Urinary [...] D level 07/24/2015 Appointment: Katy Do WPtel: [address] [place], [place] [phone] (30 min) [facility] 07/24/2015 Patient Education: Patient Medication Summary [...] in blood pressure readings at home. Neck rglg-vvxkqolwuaopy-cmkly to Dr Mckee for evaluation-patient has been [...] Moderate 09/04/2014 Appointment: [phone] Follow up 07/07/2014 Visit Plan: Anxiety [...] Completed 05/16/2014 [phone] [phone] Follow up 05/09/2014 Visit Plan: Hypertension - [...] this patient. 04/04/2014 Appointment: Katy Do WPtel[phone] Follow up 04/04/2014 Patient Education: Patient [...] 12/01/2013 Care Plan: Referral Order SNOMED-CT : [id number] Ordered 12/01/2013 Visit Plan: Diabetes Mellitus - [...] for insomnia. 10/10/2013 Appointment: Ally Manzanares WPtel: [address] [place], [place] [phone] Follow up 10/10/2013 Patient Education: Patient Medication Summary Completed 10/10/2013 Appointment: Ally Manzanares WPtel: [facility] Lab Draw 10/06/2013 Patient Education: Patient Medication Summary Completed 10/06/2013 Appointment: Ally Manzanares WPtel: [address] [place], [place] [phone] Follow up 10/04/2013 Visit Plan: Well Adult [...] or prn. Joint pain-pleuritic chest pain-swelling of ggmr-wiywbra-vqrswpw for autoimmune disease such as lupus-plan to check labs and proceed as indicated. Instructed patient we will call her with results of labs. 09/15/2013 Appointment: Katy Do WPtel: [phone] [place] Pap Only 09/15/2013 Patient Education: Patient [...] iron panel 08/16/2013 Appointment: Katy Do WPtel: [phone] [place] [address] Follow up 08/16/2013 Patient Education: Patient Medication Summary Completed 08/16/2013 Care Plan: C URINE RT Pending 08/16/2013 Appointment: Katy Do WPtel: [phone] Follow up 08/09/2013 Appointment: Ally Manzanares WPtel: [address] [place], [place] [phone] Follow up 08/08/2013 Visit Plan: Diabetes Mellitus [...] glucose control. 06/06/2013 Appointment: Ally Manzanares WPtel: [facility] [address] Follow up 06/06/2013 Patient Education: Patient Medication Summary Completed 06/06/2013 Appointment: Ally Manzanares WPtel: [address] [place] [address] Follow up 05/12/2013 Visit Plan: Diabetes Mellitus [...] glucose control. 04/26/2013 Appointment: Katy Do WPtel: [address] [place], [place] [phone] [place] [address] Diabetic education 04/26/2013 Patient Education: Patient Medication [...] and hgba1c. 04/14/2013 Appointment: Ally Manzanares WPtel: [address] [place] [address] New Patient 04/14/2013 Patient Education: Patient Medication Summary Completed 04/14/2013 Appointment: Ally Manzanares WPtel: [address] [place] [address] New Patient 04/05/2013 Referral: Dr Trujillo Referral [...] daily keep metformin at current dose. 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 . Diabetes Mellitus - controlled [...] or prn. Joint pain-pleuritic chest pain-swelling of cqaw-kqgkgyb-tclzoxx for autoimmune disease such as lupus-plan to [...] glucose control. HOLD METFORMIN X 1 W [place] JOLLA RESTART PANTOPRAZOLE DAILY CONTINUE CARAFATE BEFORE MEALS [...] pt is to call for acute concerns. [phone] Samuels and call Sandee to picking supervisor a copy . Elevated glucose-check Hgb A1C Low back pain-will write letter on patient's behalf for insurance precertification Rsuailc-rodhwrtlsn-lwgg controlled-no changes . Hypertension - wel l controlled - continue with current medications, continue with no added salt diet. Pt has been encouraged to exercise daily. The pt has been advised to call the office if there are any acute concerns about change in blood pressure readings at home. Neck mwrf-mmryalpmcsmno-ejwsk to Dr Mckee for evaluation-patient has been [...]
--- OUTSIDE RECORDS SUMMARY | 2019-03-04 02:44 | XMS REPORT | CCD ---
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 and he brought in new people 09/15/2013 Marital status Unknown M arried 04/14/[address]: 168161684 Never smoker 04/14/2013 Alcohol history Unknown occasionally drinks alcohol 04/14/2013 Allergies, Adverse Reactions, Alerts Allergies, Adverse Reactions, Alerts data not found Past Medical History Illness Codes Condition Status Onset Date Resolved Date Generalized anxiety disorder ICD-9: 300.02 ICD-10: F41.1 Active 03/05/2016 Unknown Impaired fasting glu cose ICD-9: 790.21 ICD-10: R73.01 Active 08/05/2016 Unknown Low back pain ICD-9: 724.2 ICD-10: M54.5 Active 07/15/2015 Unknown Essential (primary) hypertension ICD-9: 401.9 ICD-10: I10 Active 03/05/2016 Unknown Radiculopathy, lumba r region ICD-9: 724.4 ICD-10: M54.16 Active 07/22/2016 Unknown Dysuria ICD-9: 788.1 ICD-10: R30.0 Active 06/12/2016 Unknown Elevated C-reactive protein (CRP) ICD-9: 790.95 ICD-10: R79.82 Active 03/06/2016 Unknown Elevated erythrocyte sedimentation rate ICD-9: 790.1 ICD-10: R70.0 Active 03/06/2016 Unknown Radiculopathy, cervi srinivasa region ICD-9: 723.4 ICD-10: M54.12 Active 03/06/2016 Unknown Cardiac murmur, unsp ecified ICD-9: 785.2 ICD-10: R01.1 Active 03/05/2016 Unknown Type 2 diabetes marissa itus without complications ICD-9: 250.00 ICD-10: E11.9 Active 03/05/2016 Unknown Vitamin D deficiency , unspecified ICD-9: 268.9 ICD-10: E55.9 Active 03/05/2016 Unknown Major depressive dis order, recurrent, in partial remission ICD-9: 296.35 ICD-10: F33.41 Active 12/06/2015 Unknown VACCIN FOR INFLUENZA ICD-9: V04.81 ICD-10: Z23 Active 12/06/2015 Unknown Other obesity due to excess calories ICD-9: 278.00 ICD-10: E66.09 Active 11/08/2015 Unknown Urinary tract infect ion, site not specified ICD-9: 599.0 ICD-10: N39.0 Active 08/16/2015 Unknown Major depressive dis order, recurrent, moderate ICD-9: 296.32 ICD-10: F33.1 Active 07/23/2015 Unknown Cervicalgia ICD-9: 723.1 ICD-10: M54.2 Active 07/15/2015 Unknown Myalgia ICD-9: 729.1 ICD-10: M79.1 Active 07/15/2015 Unknown Pain in left hip ICD-9: 719.45 [...] Condition Codes Effectiv e Dates Condition Status Generalized anxiety disorder ICD-9: 300.02 ICD-10: F41.1 03/05/2016 Active Impaired fasting glu cose ICD-9: 790.21 ICD-10: R73.01 08/05/2016 Active Low back pain ICD-9: 724.2 ICD-10: M54.5 07/15/2015 Active Essential (primary) hypertension ICD-9: 401.9 ICD-10: I10 03/05/2016 Active Radiculopathy, lumba r region ICD-9: 724.4 ICD-10: M54.16 07/22/2016 Active Dysuria ICD-9: 788.1 ICD-10: R30.0 06/12/2016 Active Elevated C-reactive protein (CRP) ICD-9: 790.95 ICD-10: R79.82 03/06/2016 Active Elevated erythrocyte sedimentation rate ICD-9: 790.1 ICD-10: R70.0 03/06/2016 Active Radiculopathy, cervi srinivasa region ICD-9: 723.4 ICD-10: M54.12 03/06/2016 Active Cardiac murmur, unsp ecified ICD-9: 785.2 ICD-10: R01.1 03/05/2016 Active Type 2 diabetes marissa itus without complications ICD-9: 250.00 ICD-10: E11.9 03/05/2016 Active Vitamin D deficiency , unspecified ICD-9: 268.9 ICD-10: E55.9 03/05/2016 Active Major depressive dis order, recurrent, in partial remission ICD-9: 296.35 ICD-10: F33.41 12/06/2015 Active VACCIN FOR INFLUENZA ICD-9: V04.81 ICD-10: Z23 12/06/2015 Active Other obesity due to excess calories ICD-9: 278.00 ICD-10: E66.09 11/08/2015 Active Urinary tract infect ion, site not specified ICD-9: 599.0 ICD-10: N39.0 08/16/2015 Active Major depressive dis order, recurrent, moderate ICD-9: 296.32 ICD-10: F33.1 07/23/2015 Active Cervicalgia ICD-9: 723.1 ICD-10: M54.2 07/15/2015 Active Myalgia ICD-9: 729.1 ICD-10: M79.1 07/15/2015 Active Pain in left hip ICD-9: 719.45 [...] Date Stop Date Sta tus Fill Instructions amitriptyline 25 mg tablet RxNorm: 643058 2 TAB(S) PO HS,INSTR: FOR PAIN AND SLEEP 09/24/2016 No Stop Date Active amitriptyline 25 mg tablet RxNorm: 984938 2 Tablet(s) PO QHS 09/23/2016 09/23/2016 Inactive meloxicam 15 mg tablet RxNorm: 578279 1 TABLET(S) PO DAILY 09/08/2016 12/06/[address] on hold until pt needs it: she is going to take (2) 7.5mg until gone cetirizine 10 mg tablet RxNorm: 0337182 1 Tablet(s) PO daily 07/22/2016 No Stop Date Active lisinopril 20 mg-hyd rochlorothiazide 12.5 mg tablet RxNorm: 410372 1 TABLET(S) PO DAILY 06/20/2016 12/16/2016 Active Wellbutrin XL 150 mg 24 hr tablet, extended release RxNorm: 322360 1 TABLET(S) PO DAILY 05/12/2016 08/09/2016 Inactive Victoza 3-Jean 0.6 mg /0.1 mL (18 mg/3 mL) subcutaneous pen injector RxNorm: 248627 0.6 Milligram(s) SQ daily 03/21/2016 07/21/2016 Inactive NovoFine Plus 32 gau ge x 1/6" needle RxNorm: 1 Miscellaneous daily 03/21/2016 07/21/2016 Inactive NovoFine Plus 32 gau ge x 1/6" needle RxNorm: 1 Miscellaneous daily 03/21/2016 03/20/2016 Inactive Victoza 3-Jean 0.6 mg /0.1 mL (18 mg/3 mL) subcutaneous pen injector RxNorm: 842334 0.6 Milligram(s) SQ daily 03/21/2016 03/20/2016 Inactive Vitamin D2 50,000 un it capsule RxNorm: 377933 1 Capsule(s) PO QW 03/20/2016 06/17/2016 Inactive meloxicam 15 mg tablet RxNorm: 010262 1 Tablet(s) PO daily 03/20/2016 07/17/[address] on hold until pt needs it: she is going to take (2) 7.5mg until gone lisinopril 20 mg-hyd rochlorothiazide 12.5 mg tablet RxNorm: 261987 1 TABLET(S) PO DAILY 02/19/2016 05/18/2016 Inactive gabapentin 800 mg ta blet RxNorm: 088928 1 Tablet(s) PO TID 11/09/2015 No Stop Date Active Wellbutrin XL 150 mg 24 hr tablet, extended release RxNorm: 242816 1 Tablet(s) PO daily 11/09/2015 03/07/2016 Inactive Lexapro 10 mg tablet RxNorm: 014310 1 TABLET(S) PO QPM 11/05/2015 11/08/2015 Inactive lisinopril 20 mg-hyd rochlorothiazide 12.5 mg tablet RxNorm: 201788 1 TABLET(S) PO DAILY 10/18/2015 01/15/2016 Inactive Cipro 500 mg tablet RxNorm: 258132 1 Tablet(s) PO BID 08/17/2015 08/23/2015 Inactive Lexapro 10 mg tablet RxNorm: 298098 1 Tablet(s) PO QPM 07/24/2015 10/21/2015 Inactive Vitamin D2 50,000 un it capsule RxNorm: 186137 1 Capsule(s) PO QW 07/24/2015 10/21/2015 Inactive gabapentin 300 mg ca psule RxNorm: 191838 2 Capsule(s) PO TID 07/16/2015 11/08/2015 Inactive lisinopril 20 mg-hyd rochlorothiazide 12.5 mg tablet RxNorm: 790484 1 TABLET(S) PO DAILY 04/09/2015 07/07/2015 Inactive naproxen 250 mg tablet RxNorm: 520537 1-2 Tablet(s) PO BID as needed for pain 03/08/2015 No Stop Date Active Fetzima 40 mg capsul e,extended release RxNorm: 8828685 1 Capsule(s) PO adri y 12/22/2014 12/21/2014 In active Fetzima 40 mg capsul e,extended release RxNorm: 5456736 1 Capsule(s) PO adri y 12/22/2014 06/11/2015 In active Xanax 0.5 mg tablet RxNorm: 020506 1 Tablet(s) TAKE 1 TABLET BY MOUTH TWICE DAILY NEEDED FOR ANXIETY 11/17/2014 01/15/2015 Inactive lisinopril 20 mg-hyd rochlorothiazide 12.5 mg tablet RxNorm: 541202 1 Tablet(s) PO daily 11/17/2014 03/16/2015 Inactive Fetzima 20 mg capsul e,extended release RxNorm: 5468379 1 Capsule(s) PO adri y 11/17/2014 12/22/2014 In active Xanax 0.5 mg tablet RxNorm: 257994 1 Tablet(s) TAKE 1 TABLET BY MOUTH TWICE DAILY NEEDED FOR ANXIETY 10/27/2014 11/16/2014 Inactive Xanax 0.5 mg tablet RxNorm: 111078 TAKE 1 TABLET BY MOUTH TWICE DAILY NE EDED FOR ANXIETY 08/25/2014 10/23/2014 Inactive Brintellix 10 mg tablet RxNorm: 8889586 1 Tablet(s) PO daily 07/04/2014 07/03/2014 Inactive Brintellix 10 mg tablet RxNorm: 7921699 1 Tablet(s) PO daily 07/04/2014 11/16/2014 Inactive Brintellix 10 mg tablet RxNorm: 1309011 1 Tablet(s) PO daily 06/09/2014 07/03/2014 Inactive Contrave 8 mg-90 mg tablet,extended release RxNorm: 8962143 2 Tablet(s) PO BID 06/09/2014 09/06/2014 In active 1 tab q am x 1 week, then 1 tab BID x 1 week, then 2 q am and 1 q pm x 1 week then 2 tabs BID thereafter Contrave 8 mg-90 mg tablet,extended release RxNorm: 3552180 2 Tablet(s) PO BID 06/09/2014 06/08/2014 In active 1 tab q am x 1 week, then 1 tab BID x 1 week, then 2 q am and 1 q pm x 1 week then 2 tabs BID thereafter metformin 500 mg tablet RxNorm: 792581 1/2 Tablet(s) PO BID 05/18/2014 09/14/2014 Inactive Brintellix 10 mg tablet RxNorm: 2036455 2 Tablet(s) PO daily 05/16/2014 06/08/2014 Inactive Xanax 0.5 mg tablet RxNorm: 929081 1 Tablet(s) PO BID PRN 04/06/2014 08/25/2014 Inactive Wellbutrin XL 150 mg 24 hr tablet, extended release RxNorm: 963221 1 Tablet(s) PO daily 04/04/2014 05/15/2014 Inactive [SAVINGS FOR UNINSURED PATIENTS -- BIN:[id number], PCN: [id number], Group: [id number], ID# [id number], Process claim through [employer], for questions: . THIS IS NOT INSURANCE.] pantoprazole 40 mg t ablet,delayed release RxNorm: 756060 1 Tablet(s) PO daily 12/01/2013 03/30/2014 In active Vitamin D3 2,000 uni t tablet RxNorm: 406529 1 Tablet(s) PO daily 10/10/2013 No Stop Date Active Vitamin D2 50,000 un it capsule RxNorm: 173788 1 Capsule(s) PO QW 10/10/2013 11/16/2014 Inactive vitamin d 50,000 units weekly x 12 weeks then 5000 units daily thereafter escitalopram 20 mg t ablet RxNorm: 480862 1 Tablet(s) PO daily 10/10/2013 04/04/2014 Inactive trazodone 100 mg tablet RxNorm: 218692 1 TABLET(S) PO QHS 09/19/2013 01/16/2014 Inactive trazodone 100 mg tablet RxNorm: 429952 1 Tablet(s) PO QHS 08/16/2013 09/14/2013 Inactive metformin 500 mg tablet RxNorm: 363479 1 Tablet(s) PO BID 08/16/2013 04/03/2014 Inactive Diflucan 150 mg tablet RxNorm: 145689 1 Tablet(s) PO daily 08/16/2013 08/22/2013 Inactive metformin 500 mg tablet RxNorm: 495504 1/2 Tablet(s) PO BID 1/2 tab in the even ing x 1 week then 1/2 tab twice daily 04/26/2013 08/15/2013 Inactive Vitamin D2 50,000 un it capsule RxNorm: 391940 1 Capsule(s) PO QW 04/21/2013 10/09/2013 Inactive vitamin d 50,000 units weekly x 12 weeks then 5000 units daily thereafter Lexapro 10 mg tablet RxNorm: 198269 1 Tablet(s) PO daily 04/14/2013 10/09/2013 Inactive tizanidine 2 mg tablet RxNorm: 479380 1 Tablet(s) PO TID No Start Date Active diclofenac 75 mg-mis oprostol 200 mcg tablet,immediate,delayed release RxNorm: 8270115 1 Tablet(s) PO BID No Start Date Active methocarbamol 500 mg tablet RxNorm: 362804 1 Tablet(s) PO TID No Start Date Active lisinopril 20 mg-hyd rochlorothiazide 12.5 mg tablet RxNorm: 808350 1 Tablet(s) PO daily No Start Date 11/16/2014 Inactive gabapentin 300 mg ca psule RxNorm: 464413 1 Capsule(s) PO TID No Start Date 07/15/2015 Inactive cetirizine 10 mg tablet RxNorm: 1393654 1 Tablet(s) PO daily No Start Date 03/05/2016 Inactive Vitamin D2 50,000 un it capsule RxNorm: 272064 1 Capsule(s) PO QW No Start Date 04/20/2013 Inactive pantoprazole 40 mg t ablet,delayed release RxNorm: 836404 1 Tablet(s) PO daily No Start Date 10/09/2013 Inactive amitriptyline 10 mg tablet RxNorm: 876602 1 Tablet(s) PO QHS No Start Date 09/22/2016 Inactive meloxicam 7.5 mg tablet RxNorm: 551842 1 Tablet(s) PO daily No Start Date 03/19/2016 Inactive ibuprofen 200 mg tablet RxNorm: 317171 3 Tablet(s) PO TID No Start Date 11/30/2013 Inactive Advair Diskus 250 mc g-50 mcg/dose powder for inhalation RxNorm: 3952624 2 INH daily No Start Date 07/23/2015 Inactive Medication Administered No Medication Administered data Immunizations Vaccine Codes Date Status Influenza CVX: 141 12/06 completed Influenza CVX: 141 12/07 completed Influenza CVX: 141 12/27 completed Assessments Condition Codes Effectiv e Dates Generalized anxiety disorder ICD-10: F41.1 ICD-9: 300.02 08/05/2016 Impaired fasting glucose ICD-10: R73 .01 ICD-9: 790.21 08/05/2016 Low back pain ICD-10: M54.5 ICD-9: 724.2 08/05/2016 Radiculopathy, lumbar region ICD-10: M54.16 ICD-9: 724.4 07/22/2016 Essential (primary) hypertension ICD -10: I10 ICD-9: 401.9 07/22/2016 Dysuria ICD-10: R30.0 ICD-9: 788.1 06/12/2016 Radiculopathy, cervical region ICD-1 0: M54.12 ICD-9: 723.4 03/07/2016 Elevated C-reactive protein (CRP) IC D-10: R79.82 ICD-9: 790.95 03/07/2016 Elevated erythrocyte sedimentation rate ICD-10: R70.0 ICD-9: 790.1 03/07/2016 Vitamin D deficiency, unspecified IC D-10: E55.9 ICD-9: 268.9 03/06/2016 Type 2 diabetes mellitus without complications ICD-10: E11.9 ICD-9: 250.00 03/06/2016 Cardiac murmur, unspecified ICD-10: R01.1 ICD-9: 785.2 03/06/2016 Major depressive disorder, recurrent, in partial remis sae ICD-10: F33.41 ICD-9: 296.35 12/07/2015 VACCIN FOR INFLUENZA ICD-10: Z23 ICD-9: V04.81 12/07/2015 Other obesity due to excess calories ICD-10: E66.09 ICD-9: 278.00 11/09/2015 Urinary tract infection, site not specified ICD-10: N39.0 ICD-9: 599.0 08/17/2015 Major depressive disorder, recurrent, moderate ICD-10: F33.1 ICD-9: 296.32 07/24/2015 Cervicalgia ICD-10: M54.2 ICD-9: 723.1 07/16/2015 Myalgia ICD-10: M79.1 ICD-9: 729.1 07/16/2015 Pain in left hip ICD-10: M25.552 ICD-9: [...] 10/10/2013 Laboratory exam ordered as part of anuj giovanni general medical examination ICD-9: V72.62 10/06/2013 Swelling of extremity ICD-9: 729.81 09/15/2013 JOINT PAIN-UNSPEC ICD-9: 719.40 09/15/2013 Pleuritic chest pain ICD-9: 786.52 09/15/2013 Well woman exam with routine gynecological exam ICD-9: V72.31 09/15/2013 Nasal septal ulcer ICD-9: 478.19 09/15/2013 ANEMIA ICD-9: 285.9 08/07 DM W/O COMPLICATION TYPE II, UNCONTROLLED SNOMED: [id number] ICD-9: 250.02 08/16/2013 Urinary tract infection ICD-9: 599.0 08/16/2013 Elevated alkaline phosphatase level ICD-9: 790.5 04/14/2013 Elevated glucose ICD-9: 790.29 04/14/2013 Elevated blood pressure ICD-9: 796.2 04/14/2013 Reason For Visit Reason For Visit Effective Dates Notes pre-op/surgery consult 08/05/2016 lower leg pain 07/22/2016 [...] Observation Code Item Item Code Result Date %Hba1C Idq709 % HbA1c 56649-8 6.3 % 08/05/2016 %Hba1C Pvs685 Gluc Ave 134 mg/dL 08/05/2016 Alena [id number] ALENA ([place]) S CREEN NONE DETECTED 017 Vitamin D 25 Oh Rys1089 VITAMIN D, 25 HYDROXY 32.26 ng/mL 03/07/2016 Ra Factor Ppr901 RA FACT OR <10 IU/ml 03/07/2016 C-Reactive Protein Qnt Crqnt CRP 2.0 mg/dl 03/06/2016 Sed Rate Ord21 ESR 32 mm/hr 03/06/2016 %Hba1C Yud806 % HbA1c 48169-1 6.3 % 03/06/2016 %Hba1C Mas624 Gluc Ave 134 mg/dL 03/06/2016 Comp Metabolic Oio845 NA 138 mEq/L 03/06/2016 Comp Metabolic Wwu238 K 4.3 mEq/L 03/06/2016 Comp Metabolic Bhz991 CL 103 mEq/L 03/06/2016 Comp Metabolic Ngb932 CO2 23.0 mEq/L 03/06/2016 Comp Metabolic Jxe351 AN ION GAP 16 03/06/2016 Comp Metabolic Uyy508 GL UCOSE 148 mg/dL 03/06/2016 Comp Metabolic Zpl223 Cr eat 0.6 mg/dL 03/06/2016 Comp Metabolic Fak129 eG FR 104 ml/min/1.73m2 02/07 Comp Metabolic Gic162 BUN 13 mg/dL 03/06/2016 Comp Metabolic Sxw513 B/ C Ratio 20.3 Ratio 03/06/2016 Comp Metabolic Eno384 CA LCIUM 9.7 mg/dL 03/06/2016 Comp Metabolic Grv732 AL K PHOS 146 U/L 03/06/2016 Comp Metabolic Prw675 T(SGOT) 25 U/L 03/06/2016 Comp Metabolic Xqg481 AL T(SGPT) 25 U/L 03/06/2016 Comp Metabolic Mzm076 BI LI T 0.3 mg/dL 03/06/2016 Comp Metabolic Hnl788 AL BUMIN 4.1 g/dL 03/06/2016 Comp Metabolic Fee715 TP RO 6.9 g/dL 03/06/2016 Comp Metabolic Cqs511 GL OB 2.8 g/dL 03/06/2016 Comp Metabolic Ouq817 A/ G Ratio 1.5 Ratio 03/06/2016 Comp Metabolic Fqf800 Os mo 279 mOsmo 03/06/2016 Cbc With Differential Ord2 WBC 5.73 K/ul 03/06/2016 Cbc With Differential Ord2 RBC 4.76 M/ul 03/06/2016 Cbc With Differential Ord2 HGB 12.9 g/dl 03/06/2016 Cbc With Differential Ord2 HCT 39.5 % 03/06/2016 Cbc With Differential Ord2 Neut% 63.2 % 03/06/2016 Cbc With Differential Ord2 Lymph% 23.6 % 03/06/2016 Cbc With Differential Ord2 MCV 83.0 fl 03/06/2016 Cbc With Differential Ord2 [place]% 9.2 % 03/06/2016 Cbc With Differential Ord2 MCH 27.1 pg 03/06/2016 Cbc With Differential Ord2 MCHC 32.7 pg 03/06/2016 Cbc With Differential Ord2 Eos% 3.1 % 03/06/2016 Cbc With Differential Ord2 PLT 288 K/ul 03/06/2016 Cbc With Differential Ord2 Baso% 0.9 % 03/06/2016 Cbc With Differential Ord2 RDW 14.1 % 03/06/2016 Cbc With Differential Ord2 Neut ABS# 3.62 K/ul 03/06/2016 Cbc With Differential Ord2 Lymph ABS# 1.35 K/ul 03/06/2016 Cbc With Differential Ord2 [place] ABS# 0.5 K/ul 03/06/2016 Cbc With Differential Ord2 Eos ABS# 0.2 K/ul 03/06/2016 Cbc With Differential Ord2 Baso ABS# 0.1 K/ul 03/06/2016 Tsh Ord6 hTSH II 3.61 uIU/mL 03/06/2016 Culture Urine [id number] URI NE CULTURE SEE NOTES 08/20/2015 Culture Urine [id number] Con tinued Results 08/20/2015 Urine Culture Ucult Comp lete Growth of aerobe sent to ref lab 08/18/2015 Vitamin D 25 Oh Nwq1956 VITAMIN D, 25 HYDROXY 24.39 ng/mL 07/18/2015 Comp Metabolic Nda402 NA 136 mEq/L 07/17/2015 Comp Metabolic Mro962 K 4.0 mEq/L 07/17/2015 Comp Metabolic Rsg542 CL 100 mEq/L 07/17/2015 Comp Metabolic Ejm712 CO2 27.0 mEq/L 07/17/2015 Comp Metabolic Vuw722 AN ION GAP 13 07/17/2015 Comp Metabolic Zlh951 GL UCOSE 121 mg/dL 07/17/2015 Comp Metabolic Yft208 Cr eat 0.7 mg/dL 07/17/2015 Comp Metabolic Naw799 eG FR 96 ml/min/1.73m2 07/16 Comp Metabolic Vde828 BUN 10 mg/dL 07/17/2015 Comp Metabolic Wha077 B/ C Ratio 14.5 Ratio 07/17/2015 Comp Metabolic Wwu550 CA LCIUM 8.9 mg/dL 07/17/2015 Comp Metabolic Ckb692 AL K PHOS 146 U/L 07/17/2015 Comp Metabolic Ukx949 T(SGOT) 20 U/L 07/17/2015 Comp Metabolic Hvn387 AL T(SGPT) 22 U/L 07/17/2015 Comp Metabolic Xfr197 BI LI T 0.4 mg/dL 07/17/2015 Comp Metabolic Lxj489 AL BUMIN 4.0 g/dL 07/17/2015 Comp Metabolic Zmg332 TP RO 6.6 g/dL 07/17/2015 Comp Metabolic Vrg015 GL OB 2.6 g/dL 07/17/2015 Comp Metabolic Jdd789 A/ G Ratio 1.6 Ratio 07/17/2015 Comp Metabolic Biu094 Os mo 272 mOsmo 07/17/2015 Sed Rate Ord21 ESR 11 mm/hr 07/17/2015 Cbc With Differential Ord2 WBC 7.38 K/ul 07/17/2015 Cbc With Differential Ord2 RBC 4.82 M/ul 07/17/2015 Cbc With Differential Ord2 HGB 12.6 g/dl 07/17/2015 Cbc With Differential Ord2 Neut% 69.3 % 07/17/2015 Cbc With Differential Ord2 HCT 40.3 % 07/17/2015 Cbc With Differential Ord2 MCV 83.6 fl 07/17/2015 Cbc With Differential Ord2 Lymph% 16.9 % 07/17/2015 Cbc With Differential Ord2 MCH 26.1 pg 07/17/2015 Cbc With Differential Ord2 [place]% 12.6 % 07/17/2015 Cbc With Differential Ord2 [...] 1.25 K/ul 07/17/2015 Cbc With Differential Ord2 [place] ABS# 0.9 K/ul 07/17/2015 Cbc With Differential [...] Crqnt CRP 2.9 mg/dl 07/17/2015 GFR CALC 1794793 GFR AA >60 ML/MIN 10/06/2013 GFR CALC 5003568 GFR NON -AA >60 ML/MIN 10/06/2013 CHEM 14 8635008 AST 34 U/L 10/06/2013 CHEM 14 5667385 ALT 30 IU/L 10/06/2013 CHEM 14 7426269 BUN 11 MG/DL 10/06/2013 CHEM 14 6362234 ALBUMIN 4.4 GM/DL 10/06/2013 CHEM 14 1959858 CHLORIDE 107 MMOL/L 10/06/2013 CHEM 14 4079394 BILI TOT 0.4 MG/DL 10/06/2013 CHEM 14 6228320 ALK PHOS 133 U/L 10/06/2013 CHEM 14 6756043 SODIUM 140 MMOL/L 10/06/2013 CHEM 14 1268962 CREATINI NE 0.67 MG/DL 10/06/2013 CHEM 14 4174428 CALCIUM 9.3 MG/DL 10/06/2013 CHEM 14 2769662 POTASSIUM 4.0 MMOL/L 10/06/2013 CHEM 14 0373233 PROT TOT 7.1 GM/DL 10/06/2013 CHEM 14 0184780 GLUCOSE 108 MG/DL 10/06/2013 CHEM 14 5227629 BICARB 25 MMOL/L 10/06/2013 CHEM 14 2201135 ANION GAP 8 MEQ/L 10/06/2013 VIT D TOTL 6748807 VIT D TOTL 37 NG/ML 10/06/2013 GC/CHL PRB 0512556 CHLM PROBE NEG 09/21/2013 GC/CHL PRB 6874106 GC MS OBE NEG 09/21/2013 DNA AB 0962698 DNA AB 36 IU/ML 09/17/2013 RA FACTOR 9625496 RA FAC TOR <20.0 IU/ML 09/16/2013 SM MUSC AB 0424051 SM MU SC AB <1:20 09/16/2013 CARDIO G/M 1703562 CARDI O IGG 1.7 GPLU 09/16/2013 CARDIO G/M 6453397 CARDI O IGM 4.8 MPLU 09/16/2013 ALENA SCR 1620342 ALENA SCR <1:80 09/16/2013 CRP 6638746 CRP 1.1 MG/DL 09/15/2013 ESR 8590504 ESR 22 MM/HR 09/15/2013 CBC 4611032 WBC 5.5 10e9/L 04/26/2013 CBC 6585390 RBC 4.89 10e12/L 04/26/2013 CBC 6018698 HGB 12.8 g/dL 04/26/2013 CBC 3061896 HCT DET 39.5 % 04/26/2013 CBC 6970297 MCV 80.8 fL 04/26/2013 CBC 2700697 MCH 26.2 pg 04/26/2013 CBC 4561201 MCHC 32.4 g/dL 04/26/2013 CBC 6907764 PLT 299 10e9/L 04/26/2013 CBC 7255848 MPV 10.9 fL 04/26/2013 CBC 0073654 WAN % 59.0 % 04/26/2013 CBC 3301278 LY % 29.6 % 04/26/2013 CBC 6632996 MON % 9.1 % 04/26/2013 CBC 5101165 EOS % 1.8 % 04/26/2013 CBC 1426421 BASO % 0.5 % 04/26/2013 CBC 5410458 RDW 13.9 % 04/26/2013 CBC 9923672 ABS WAN 3.25 10e9/L 04/26/2013 CBC 9091822 ABS LYMPH 1.63 10e9/L 04/26/2013 CBC 7969487 ABS MONO 0.50 10e9/L 04/26/2013 CBC 4007753 ABS EOS 0.10 10e9/L 04/26/2013 CBC 4929553 ABS BASO 0.03 10e9/L 04/26/2013 CBC 0010986 RDW-SD 39.9 fL 04/26/2013 URINALYSIS NONAUTO W/O SCOPE 33094 Specific Hyrum 1.020 DateTime(Free Text in Aprima) URINALYSIS NONAUTO W/O SCOPE 20083 PH 6.0 DateTime(Free Rik t in Apr) URINALYSIS NONAUTO W/O SCOPE 01725 GLUCOSE neg DateTime(Free Rik t in Aprima) URINALYSIS NONAUTO W/O SCOPE 87067 Protein neg DateTime(Free Rik t in Aprima) URINALYSIS NONAUTO W/O SCOPE 34244 Blood neg DateTime(Free Rik t in Aprima) URINALYSIS NONAUTO W/O SCOPE 75054 Bilirubin neg DateTime(Free Rik t in Apr) URINALYSIS NONAUTO W/O SCOPE 14762 Ketones neg DateTime(Free Rik t in Apr) URINALYSIS NONAUTO W/O SCOPE 39025 Urobilinogen neg DateTime(Free Text in Aprima) URINALYSIS NONAUTO W/O SCOPE 77563 Nitrite neg DateTime(Free Rik t in Aprima) URINALYSIS NONAUTO W/O SCOPE 27525 Leukocytes 1+ DateTime(Free Text in ) Review of Systems System Result Effective Dates Constitutional No recent illness 08/05/2016 Constitutional No [...] tenderness 08/16/2013 None Full Exam - General 1995 Abdomen abdominal exam Overall: normal bowel sounds 08/16/2013 None Full Exam - General 1994 Abdomen abdominal exam Contour: protuberant 08/16/2013 None Full Exam - General 1994 Lymphatic neck nodes Overall: anterior cervical chain benign 08/16/2013 None Full Exam - General 1995 Lymphatic neck nodes Overall: posterior cervical chain benign 08/16/2013 None Full Exam - General 1995 Constitutional general appearance Overall: well developed 06/06/2013 [...] affect 04/14/2013 None Procedures Procedure Codes Date IMMUNIZATION ADMIN CPT-4: 52740Qkqalek 12/07/2015 FLU VACC 4 AMBER 3 YRS PLUS IM SNOMED CT: 60233232 CPT-4: 01243Npwpikv 12/07/2015 URINALYSIS NONAUTO W /O SCOPE CPT-4: 83668Fdcsvbl 08/17/2015 CHEM 14 (COMPREHEN M ETABOLIC PANEL) CPT-4: 41507Ztrebpz 10/06/2013 VIT D TOTL (VITAMIN D 25 HYDROXY) CPT-4: 46194Shzlgdp 10/06/2013 CRP (C-REACTIVE PROT EIN) CPT-4: 69522Xjucniy 09/15/2013 ESR (RBC SED RATE AU TOMATED) CPT-4: 44130Tomrkzq 09/15/2013 ROUTINE VENIPUNCTURE CPT-4: 46162Drwyxpf 09/15/2013 URINALYSIS NONAUTO W /O SCOPE CPT-4: 87502Isaoszc 08/16/2013 C URINE RT CPT-4: 3257248Nsihjfd 08/16/2013 C URINE RT (URINE CU LTURE/COLONY COUNT) CPT-4: 94456Ewbpgol 08/16/2013 ROUTINE VENIPUNCTURE CPT-4: 59714Wudexhk 04/26/2013 Vital Signs Date Vital 08/05/2016 Blood Pressure 1: 134/82 Code: 8480-6 Heart Rate 1: 113 bpm Height: 5'5" SpO2: 98% 07/22/2016 Blood Pressure 1: 142/84 Code: 8480-6 BMI: 39.6 Code: 73466-7 Heart Rate 1: 103 bpm Height: 5'5" SpO2: 97% Weight: 238 lbs 03/06/2016 Blood Pressure 1: 138/86 Code: 8480-6 Heart Rate 1: 100 bpm SpO2: 96% Weight: 246 lbs 12/07/2015 Blood Pressure 1: 140/78 Code: 8480-6 BMI: 40.8 Code: 39984-6 Heart Rate 1: 97 bpm Height: 5'6" SpO2: 98% Weight: 250 lbs 11/09/2015 Blood Pressure 1: 118/84 Code: 8480-6 BMI: 40.7 Code: 96177-6 Heart Rate 1: 85 bpm Height: 5'6" SpO2: 98% Weight: 249 lbs 08/17/2015 Blood Pressure 1: 122/82 Code: 8480-6 BMI: 39.4 Code: 35782-2 Heart Rate 1: 86 bpm Height: 5'6" SpO2: 95% Weight: 241 lbs 07/24/2015 Blood Pressure 1: 118/76 Code: 8480-6 BMI: 39.9 Code: 55288-5 Heart Rate 1: 97 bpm Height: 5'6" SpO2: 96% Weight: 244 lbs 07/16/2015 Blood Pressure 1: 158/80 Code: 8480-6 Blood Pressure 1: 120/86 Code: 8480-6 Heart Rate 1: 105 bpm Height: 5'6" SpO2: 98% Weight: 06/12/2015 Blood Pressure 1: 128/82 Code: 8480-6 BMI: 39.9 Code: 63266-9 Heart Rate 1: 89 bpm Height: 5'6" SpO2: 98% Weight: 244 lbs 03/08/2015 Blood Pressure 1: 130/86 Code: 8480-6 Heart Rate 1: 98 bpm Height: 5'6" SpO2: 97% Weight: 12/29/2014 Blood Pressure 1: 138/88 Code: 8480-6 BMI: 39.2 Code: 65405-8 Heart Rate 1: 109 bpm Height: 5'6" SpO2: 97% Weight: 240 lbs 11/17/2014 Blood Pressure 1: 170/98 Code: 8480-6 BMI: 39.7 Code: 70933-7 Heart Rate 1: 92 bpm Height: 5'6" SpO2: 98% Weight: 243 lbs 05/16/2014 Blood Pressure 1: 130/82 Code: 8480-6 BMI: 39.2 Code: 93482-9 Heart Rate 1: 88 bpm Height: 5'6" Weight: 240 lbs 04/04/2014 Blood Pressure 1: 146/92 Code: 8480-6 Blood Pressure 2: 136/86 Code: 8480-6 BMI: 39.9 Code: 88397-4 Heart Rate 1: 68 bpm Height: 5'6" Weight: 244 lbs 12/01/2013 Blood Pressure 1: 142/80 Code: 8480-6 BMI: 38.4 Code: 96523-5 Heart Rate 1: 80 bpm Height: 5'6" Weight: 235 lbs 10/10/2013 Blood Pressure 1: 128/88 Code: 8480-6 BMI: 38.7 Code: 63277-0 Heart Rate 1: 88 bpm Height: 5'6" Weight: 237 lbs 09/15/2013 Blood Pressure 1: 112/74 Code: 8480-6 BMI: 39.0 Code: 53197-3 Heart Rate 1: 80 bpm Height: 5'6" Weight: 239 lbs 08/16/2013 Blood Pressure 1: 124/64 Code: 8480-6 BMI: 39.0 Code: 68853-6 Heart Rate 1: 88 bpm Height: 5'6" Weight: 239 lbs 06/06/2013 Blood Pressure 1: 120/72 Code: 8480-6 BMI: 37.9 Code: 98420-4 Heart Rate 1: 84 bpm Height: 5'6" Weight: 232 lbs 04/26/2013 Blood Pressure 1: 148/86 Code: 8480-6 BMI: 37.7 Code: 48184-5 Heart Rate 1: 84 bpm Height: 5'6" Weight: 231 lbs 04/14/2013 Blood Pressure 1: 148/92 Code: 8480-6 BMI: 38.2 Code: 54692-6 Heart Rate 1: 88 bpm Height: 5'6" Respiratory Rate: 16 bpm Weight: 234 lbs Functional Status No Functional Status data History of Present Illness Symptom Name Status Resu lt Effective Date Notes pre-op/surgery consult Prior Treatments PT 08/05/2016 None [...] Encounter Performer Loca tion Codes Date ( 64539 EST. P ATIENT, LEVEL III Diagnosis: Impaired fasting glucose[ICD10: R73.01] Diagnosis: Low back pain[ICD10: M54.5] Diagnosis: Generalized anxiety disorder[ICD10: F41.1] Katy Manzanares MD, [facility] CPT-4: 96709 08/05/2016 ([id number]) 53159 EST. P ATIENT, LEVEL III Diagnosis: Essential (primary) hypertension[ICD10: I10] Diagnosis: Radiculopathy, lumbar region[ICD10: M54.16] [facility] CPT-4: 07611 07/22/2016 ([id number]) Miscellaneou s no charge Diagnosis: Dysuria[ICD10: R30.0] [facility] CPT-4: 59832 06/12/2016 ([id number]) 45249 EST. P ATIENT, LEVEL IV Diagnosis: Type 2 diabetes mellitus without complications[ICD10: E11.9] Diagnosis: Vitamin D deficiency, unspecified[ICD10: E55.9] Diagnosis: Generalized anxiety disorder[ICD10: F41.1] Diagnosis: Essential (primary) hypertension[ICD10: I10] Diagnosis: Radiculopathy, cervical region[ICD10: M54.12] Diagnosis: Cardiac murmur, unspecified[ICD10: R01.1] Katy Manzanares MD, [facility] CPT-4: 50794 03/06/2016 ([id number]) 00884 EST. P ATIENT, LEVEL III Diagnosis: Generalized anxiety disorder[ICD10: F41.1] Diagnosis: Major depressive disorder, recurrent, in partial remission[ICD10: F33.41] Katy Manzanares MD, [facility] CPT-4: 88087 12/07/2015 ([id number]) 06766 EST. P ATIENT, LEVEL IV Diagnosis: Essential (primary) hypertension[ICD10: I10] Diagnosis: Generalized anxiety disorder[ICD10: F41.1] Diagnosis: Other obesity due to excess calories[ICD10: E66.09] Katy Manzanares MD, [facility] CPT-4: 16681 11/09/2015 ([id number]) 29159 EST. P ATIENT, LEVEL III Diagnosis: Urinary tract infection, site not specified[ICD10: N39.0] Katy Manzanares MD, [facility] CPT-4: 79413 08/17/2015 ([id number]) 40710 EST. P ATIENT, LEVEL III Diagnosis: Generalized anxiety disorder[ICD10: F41.1] Diagnosis: Major depressive disorder, recurrent, moderate[ICD10: F33.1] Katy Manzanares MD, [facility] CPT-4: 62508 07/24/2015 ([id number]) 52275 EST. P ATIENT, LEVEL IV Diagnosis: Myalgia[ICD10: M79.1] Diagnosis: Low back pain[ICD10: M54.5] Diagnosis: Cervicalgia[ICD10: M54.2] Diagnosis: Essential (primary) hypertension[ICD10: I10] Diagnosis: Vitamin D deficiency, unspecified[ICD10: E55.9] Diagnosis: Generalized anxiety disorder[ICD10: F41.1] Katy Manzanares MD, [facility] CPT-4: 80598 07/16/2015 ([id number]) 48192 EST. P ATIENT, LEVEL IV Diagnosis: Cervicalgia[ICD10: M54.2] Diagnosis: Essential (primary) hypertension[ICD10: I10] Diagnosis: Low back pain[ICD10: M54.5] Diagnosis: Radiculopathy, cervical region[ICD10: M54.12] Katy Manzanares MD, [facility] CPT-4: 10574 06/12/2015 00534 EST. PATIENT, LEVEL III Diagnosis: Sacroiliitis, not elsewhere classified[ICD10: M46.1] Diagnosis: Low back pain[ICD10: M54.5] Diagnosis: Pain in left hip[ICD10: M25.552] Diagnosis: Pain in right hip[ICD10: M25.551] Samantha Manzanares MD, [facility] CPT-4: 28106 03/08/2015 65978 EST. PATIENT, LEVEL III Diagnosis: Anxiety disorder due to known physiological condition[ICD10: F06.4] Diagnosis: Mood disorder due to known physiological condition with depressive features[ICD10: F06.31] Diagnosis: Flushing[ICD10: R23.2] Samantha Manzanares MD, [facility] CPT-4: 42621 12/29/2014 ([id number]) 75973 EST. P ATIENT, LEVEL IV Diagnosis: ESSENTIAL HYPERTENSION[ICD9: 401.9] Diagnosis: Anxiety[ICD9: 300.00] Diagnosis: Depression[ICD9: 311] Katy Manzanares MD, [facility] CPT-4: 08510 11/17/2014 ([id number]) 93753 EST. P ATIENT, LEVEL IV Diagnosis: Anxiety[ICD9: 300.00] Diagnosis: Depression[ICD9: 311] Diagnosis: DIABETES TYPE II[ICD9: 250.00] Diagnosis: Vitamin D deficiency[ICD9: 268.9] Diagnosis: ESSENTIAL HYPERTENSION[ICD9: 401.9] Diagnosis: ABNORMAL WEIGHT GAIN[ICD9: 783.1] Katy Manzanares MD, [facility] CPT- 4: 27165 05/16/2014 ([id number]) 48480 EST. P ATIENT, LEVEL IV Diagnosis: ESSENTIAL HYPERTENSION[ICD9: 401.9] Diagnosis: Anxiety[ICD9: 300.00] Diagnosis: Depression[ICD9: 311] Katy Manzanares MD, [facility] CPT-4: 72320 04/04/2014 ([id number]) 58365 EST. P ATIENT, LEVEL IV Diagnosis: Diarrhea[ICD9: 787.91] Diagnosis: Epigastric pain[ICD9: 789.06] Diagnosis: ESOPHAGEAL REFLUX[ICD9: 530.81] Diagnosis: Blood in stool[ICD9: 578.1] Katy Manzanares MD, [facility] CPT- 4: 10321 12/01/2013 ([id number]) 65999 EST. P ATIENT, LEVEL IV Diagnosis: Vitamin D deficiency[ICD9: 268.9] Diagnosis: DIABETES TYPE II[ICD9: 250.00] Diagnosis: Depression[ICD9: 311] Diagnosis: Insomnia[ICD9: 780.52] Ally Manzanares MD, [facility] CPT-4: 88926 10/10/2013 ([id number]) PREV VISIT E ST AGE 40-64 Diagnosis: Well woman exam with routine gynecological exam[ICD9: V72.31] Diagnosis: JOINT PAIN-UNSPEC[ICD9: 719.40] Diagnosis: Nasal septal ulcer[ICD9: 478.19] Diagnosis: Swelling of extremity[ICD9: 729.81] Diagnosis: Pleuritic chest pain[ICD9: 786.52] Katy Manzanares MD, [facility] CPT-4: 86648 09/15/2013 ([id number]) 97071 EST. P ATIENT, LEVEL IV Diagnosis: DM W/O COMPLICATION TYPE II, UNCONTROLLED[SNOMED: 06636610] Diagnosis: Urinary tract infection[ICD9: 599.0] Diagnosis: DEPRESSIVE DISORDER NEC[ICD9: 311] Diagnosis: Anxiety[ICD9: 300.00] Diagnosis: Insomnia[ICD9: 780.52] Diagnosis: ANEMIA[ICD9: 285.9] Katy Manzanares MD, [facility] CPT-4: 73726 08/16/2013 ([id number]) 85002 EST. P ATIENT, LEVEL III Diagnosis: DM w/o complication type II, uncontrolled[SNOMED: 07417724] [facility] CPT-4: 93363 06/06/2013 ([id number]) 57385 EST. P ATIENT, LEVEL III Diagnosis: DIABETES TYPE II[SNOMED: 929595567] [facility] CPT- 4: 06917 04/26/2013 ([id number]) OFFICE VISI T, NEW - LEVEL 4 Diagnosis: Elevated blood pressure[ICD9: 796.2] Diagnosis: Depression[ICD9: 311] Diagnosis: Elevated alkaline phosphatase level[ICD9: 790.5] Diagnosis: Elevated glucose[ICD9: 790.29] [facility] CPT-4: 12601 04/14/2013 Plan of Care Planned Activity Notes C odes Status Date Visit Plan: Elevated glucose-check Hgb A 1C Low back pain-will write letter on patient's behalf for insurance precertification Cixagcg-cnlaeunuyv-haqm controlled-no changes 08/05/2016 Appointment: Katy Do WPtel: [phone] (30 min) Complex 08/05/2016 Patient Education: Patient Medication Summary Completed 08/05/2016 Visit Plan: Hypertension - well controll ed - continue with current medications, continue with no added salt diet. Pt has been encouraged to exercise daily.The pt has been advised to call the office if there are any acute concerns about change in blood pressure readings at home.Lumbar radiculopathy-Dr Samuels to do surgery next month. 07/22/2016 Appointment: [facility] Do [facility]el[phone] (15 min) Moderate 07/22/2016 Patient Education: Patient Medication Summary Completed 07/22/2016 Patient Education: Obesity Completed 07/22/2016 Appointment: Lab Draw 06/12/2016 Patient Education: Patient Medication Summary Completed 06/12/2016 Patient Education: Patient Medication Summary Completed 03/07/2016 Visit Plan: Hypertension - well controll ed - continue with current medications, continue with no added salt diet. Pt has been encouraged to exercise daily.The pt has been advised to call the office if there are any acute concerns about change in blood pressure readings at home.DM-check Hgb A1C Vitamin D deficiency- joint pains-check labs Heart murmur-schedule Echo 03/06/2016 Appointment: Katy Do WPtel: [phone] [phone] (30 min) Complex 03/06/2016 Patient Education: Patient Medication Summary Completed 03/06/2016 Patient Education: Hypertension Completed 03/06/2016 Visit Plan: Chronic Depression and anxie ty - the pt has symptoms of chronic anxiety and depression that have been fairly well controlled since the last office visit. The pt has expected periods of exacerbation with abatement of the symptoms with change in situational exposure. No change in current medications. 12/07/2015 Appointment: Katy Do WPtel: [phone] (30 min) Complex 12/07/2015 Patient Education: Patient Medication Summary Completed 12/07/2015 Patient Education: Obesity Completed 12/07/2015 Visit Plan: Hypertension - well controll ed - continue with current medications, continue with no added salt diet. Pt has been encouraged to exercise daily.The pt has been advised to call the office if there are any acute concerns about change in blood pressure readings at home.Anxiety - the patient has uncontrolled anxiety and will benefit from an SSRI on a daily basis to attempt control of the symptoms of anxiety (tachycardia, overwhelming sensations, stress, insomnia, etc). Pt is aware of the risks and benefits of treatment with the above medications.Obesity - chronic issue with this patient. The pt has been counseled about diet changes, calorie restriction, and need to exercise. Pt will RTC in one month for weight check. 11/09/2015 Appointment: Katy Do WPtel: [phone] (30 min) Complex 11/09/2015 Patient Education: Patient Medication Summary Completed 11/09/2015 Patient Education: Obesity Completed 11/09/2015 Care Plan: BMI Above normal followup LOLI F-MGMT EDUC & TRAIN 1 PT Pending 11/09/2015 Appointment: Katy Do WPtel: [facility] [place] [phone] (30 min) Complex 11/08/2015 Appointment: Katy Do WPtel: [address] [phone] (15 min) Moderate 08/23/2015 Visit Plan: Urinary Tract Infection-disc ussed natural and expected course of this diagnosis [...] Obesity Completed 08/17/2015 Visit Plan: Anxiety-depression - the edreck george has uncontrolled anxiety and will benefit from an SSRI on a daily basis to attempt control of the symptoms of anxiety (tachycardia, overwhelming sensations, stress, insomnia, etc). Pt is aware of the risks and benefits of treatment with the above medications.Vitamin D deficiency-start vitamin D level 07/24/2015 Appointment: [facility] Do WPtel[phone] (30 min) Complex 07/24/2015 Patient Education: Patient Medication Summary Completed 07/24/2015 Patient Education: Obesity Completed 07/24/2015 Visit Plan: Hypertension - well controll ed - continue with current medications, continue with no added salt diet. Pt has been encouraged to exercise daily.The pt has been advised to call the office if there are any acute concerns about change in blood pressure readings at home.Myalgias-check labs Anxiety-not well controlled-refer to Kym Coleman for counseling Vitamin D deficiency-check labs 07/16/2015 Patient Education: Patient Medication Summary Completed 07/16/2015 Patient Education: Hypertension Completed 07/16/2015 Patient Education: .Cervicalgia Neck Pain Completed 07/16/2015 Visit Plan: Hypertension - well controll ed - continue with current medications, continue with no added salt diet. Pt has been encouraged to exercise daily.The pt has been advised to call the office if there are any acute concerns about change in blood pressure readings at home.Neck lsdf-rsbirqhxmxhhe-ngbob to Dr Mckee for evaluation-patient has been [...] Visit Plan: Pt is currently wearing a omer ot on the right foot post op. Pt states her foot is doing well. Pt complains of back pain, SI joint pain. Pt also complains of a cough with intermittent shortness of breath.Low back pain- the patient was instructed in [...] symptoms do not improve or if they worsen.Sciatica- exercises discussed with the patient, pt to continue with antiinflammatories. Pt is to call if the symptoms do not improve or if they worsen. 03/08/2015 Patient Education: Patient Medication Summary Completed 03/08/2015 Visit Plan: Hot flashes/flushing - Decre ase fetzima to 20 mg daily.Hypertension - The patient has been counseled to [...] the office next week for practitioner to review.The pt is to call for acute concerns. 12/29/2014 Appointment: (15 min) Moderate 12/29/2014 Patient Education: Patient Medication Summary Completed 12/29/2014 Visit Plan: Hypertension - uncontrolled - the patient's medications have been modified [...] the office next week for practitioner to review.The pt is to call for acute concerns.RESTART BLOOD PRESSURE MEDICATION Anxiety - the patient has uncontrolled anxiety and will benefit from an SSRI on a daily basis to attempt control of the symptoms of anxiety (tachycardia, overwhelming sensations, stress, insomnia, etc). I also believe that the patient will benefit from very low dose of prn benzodiazepine. Pt is aware of the risks and benefits of treatment with the above medications.RECOMMEND TAKING XANAX EARLIER IN THE EVENING. Depression - uncontrolled - Pt has been counseled about the diagnosis of depression, the potential causes, and risks associated with the diagnosis. The pt denies suicidal ideation, or plans. The patient has been counseled about treatment options, and understands the risks associated with treatment of depression, as well as the risks associated with NOT treating the depression.I believe the pt will benefit from medical intervention and an antidepressant has been appropriately prescribed for this patient.[facility] [place] 11/17/2014 Appointment: (30 min) Complex 11/17/2014 Patient Education: Patient Medication Summary Completed 11/17/2014 Patient Education: Hypertension Completed 11/17/2014 Appointment: (15 min) Moderate 09/04/2014 Appointment: Kat[facility] Do WPtel: [phone] [phone] Follow up 07/07/2014 Visit Plan: Anxiety and depression - the patient has uncontrolled anxiety and will benefit from an SSRI on a daily basis to attempt control of the symptoms of anxiety (tachycardia, overwhelming sensations, stress, insomnia, etc). Pt is aware of the risks and benefits of treatment with the above medications.DM-check Hgb A1C Vitamin D deficiency-stopped vitamin D-check level Hypertension - well controlled - continue with current medications, continue with no added salt diet. Pt has been encouraged to exercise daily.The pt has been advised to call the office if there are any acute concerns about change in blood pressure readings at home.Weight gain-plan to start contrave in the next month if able- follow up in 2 months for weight check 05/16/2014 Appointment: Follow up 05/16/2014 Patient Education: Patient Medication Summary Completed 05/16/2014 Patient Education: Hypertension Completed 05/16/2014 Appointment: Katy Do WPtel: [phone] [facility] [place] [address] Follow up 05/09/2014 Visit Plan: Hypertension - well controll ed - continue with current medications, continue with no added salt diet. Pt has been encouraged to exercise daily.The pt has been advised to call the office if there are any acute concerns about change in blood pressure readings at home.Anxiety - the patient has uncontrolled anxiety and will benefit from an SSRI on a daily basis to attempt control of the symptoms of anxiety (tachycardia, overwhelming sensations, stress, insomnia, etc). I also believe that the patient will benefit from very low dose of prn benzodiazepine. Pt is aware of the risks and benefits of treatment with the above medications.Depression - uncontrolled - Pt has been counseled about the diagnosis of depression, the potential causes, and risks associated with the diagnosis. The pt denies suicidal ideation, or plans. The patient has been counseled about treatment options, and understands the risks associated with treatment of depression, as well as the risks associated with NOT treating the depression.I believe the pt will benefit from medical intervention and an antidepressant has been appropriately prescribed for this patient. 2014 Appointment: Katy Do WPtel: [phone] [id number] [place] [address] Follow up 04/04/2014 Patient Education: Patient Medication Summary Completed 04/04/2014 Appointment: Follow up 02/27/2014 Visit Plan: Diarrhea- recommended bland diet, low fat diet, start on probiotic, and rehydrate with gatorade-like product. Pt to call if feeling worse, diarrhea becomes bloody, or does not improve with above recommendations. Pt to call for acute worsening of stomach upset or stomach pain. HOLD METFORMIN.Esophageal Reflux -epigastric pain- the patient has been counseled against excessive intake of caffeine, spicy foods, peppermint, and cinnamon - all of which can exacerbate esophageal reflux.The patient is to take medications as prescribed and call the office if the symptoms are not improving.Continue carafate-add PPI. Stay off of ibuprofen. Refer to surgeon for evaluation and possible EGD. Blood in stool- check stook studies if diarrhea does not resolve 12/01/2013 Appointment: Sick 12/01/2013 Patient Education: Patient Medication Summary Completed 12/01/2013 Care Plan: Referral Order SNOMED-CT : [id number] Ordered 12/01/2013 Visit Plan: Diabetes Mellitus - controll ed - per recent FSBS reports. I have [...] glucose readings are starting to become less controlled.Vitamin D deficiency - pt to start on another 13 weeks of vitamin D, and also be on vitamin D 2000 units daily.Chronic Depression and anxiety - the pt has symptoms of chronic anxiety and depression that have been not optimally controlled since the last office visit. The pt has expected periods of exacerbation with abatement of the symptoms with change in situational exposure. Increase lexapro to 20mg daily, keep trazodone for PRN use for insomnia. 10/10/2013 Appointment: Ally Manzanares WPtel: [address] [place], [place] [phone] [place] Follow up 10/10/2013 Patient Education: Patient Medication Summary Completed 10/10/2013 Appointment: Ally Manzanares WPtel: [address] [place], [place] [phone] [place] Lab Draw 10/06/2013 Patient Education: Patient Medication Summary Completed 10/06/2013 Appointment: Ally Manzanares WPtel: [address] [place], [place] [phone] [place] Follow up 10/04/2013 Visit Plan: Well Adult Female - exam co mpleted. Pap and breast exam completed. Pt will be called with results of her testing. She was advised to continue with yearly annual exams. Safe sex practices discussed during office visit today. Call if any abnormal gynecologic issues during the next year, otherwise, RTC yearly or prn.Joint pain-pleuritic chest pain-swelling of rqoj-vwdkfcw-vvqhvgc for autoimmune disease such as lupus-plan to check labs and proceed as indicated. Instructed patient we will call her with results of labs. 09/15/2013 Appointment: Katy Do WPtel: [address] [place], [place] [phone] [place] Pap Only 09/15/2013 Patient Education: Patient Medication Summary Completed 09/15/2013 Visit Plan: Diabetes Mellitus - Uncontro lled - per recent FSBS reports. I have [...] glucose readings are starting to become less controlled.I have recommended for the patient to follow more strictly to the diabetic diet as discussed in clinic to allow for greater blood glucose control.UTI-finished abx-culture urine-start dilucan for yeast infection and we will call you wiht results of culture Insomnia - Pt has been advised to increase the light in the house during the day, and start dimming the lights during the evening hours.Pt has been advised to cut out caffiene after 5pm.Daytime napping worsens night time insomnia.START TRAZODONE AT HS-IF IT CONTROLS SYMPTOMS OF INSOMNIA, WE WILL WEAN OFF LEXAPRO.Anemia-check iron panel 08/16/2013 Appointment: Katy Do WPtel: [address] [place], [place] [phone] Follow up 08/16/2013 Patient Education: Patient Medication Summary Completed 08/16/2013 Care Plan: C URINE RT Pending 08/16/2013 Appointment: Katy Do WPtel: [address] [place], [place] [phone] Follow up 08/09/2013 Appointment: Ally Manzanares WPtel: [address] [place], [place] [phone] Follow up 08/08/2013 Visit Plan: Diabetes Mellitus - new diag nosis- I have recommended for the patient to have follow up labs in 3 months. The patient has been instructed to start medications as directed. Pt to call for any acute concerns, complaints, or if the blood glucose readings are starting to become less controlled.I have recommended for the patient to follow more strictly to the diabetic diet as discussed in clinic to allow for greater blood glucose control. 2013 Appointment: Ally Manzanares WPtel: [address] [place], [place] [phone] Follow up 06/06/2013 Patient Education: Patient Medication Summary Completed 06/06/2013 Appointment: Ally Manzanares WPtel: [address] [place], [place] [phone] Follow up 05/12/2013 Visit Plan: Diabetes Mellitus - new diag nosis- I have recommended for the patient to have follow up labs in 3 months. The patient has been instructed to start medications as directed. Pt to call for any acute concerns, complaints, or if the blood glucose readings are starting to become less controlled.I have recommended for the patient to follow more strictly to the diabetic diet as discussed in clinic to allow for greater blood glucose control. 2013 Appointment: Katy Do WPtel: [address] [place], [place] [phone] Diabetic education 04/26/2013 Patient Education: Patient Medication Summary Completed 04/26/2013 Visit Plan: Elevated Blood Pressure - w [facility] diagnosis of hypertension - pt has been instructed to check blood pressure as an outpatient, record blood pressure and heart rate and report to the clinic in two weeks on the findings. Pt advised to cut back on added salt in the diet.Elevated alk phos - repeat labs in a week. - Check vitamin D level.Elevated glucose - check glucose and hgba1c. 04/14/2013 Appointment: Ally Manzanares WPtel: [address] [place], [place] [phone] New Patient 04/14/2013 Patient Education: Patient Medication Summary Completed 04/14/2013 Appointment: Ally Manzanares WPtel: [address] [place], [place] [phone] New Patient 04/05/2013 Referral: Dr Trujillo Referral [...] up in 2 months for weight check Decrease fetzima to 20 mg daily over [...] pt is to call for acute concerns. . Pt is currently we aring a [...] do not improve or if they worsen. . Chronic Depression and anxiety - the pt has symptoms of chronic anxiety and depression that have been fairly well controlled since the last office visit. The pt has expected periods of exacerbation with abatement of the symptoms with change in situational exposure. No change in current medications. LEXAPRO 10MG DAILY I N THE EVENING [...] Vitamin D deficiency-start vitamin D level . Urinary Tract Infe ction-discussed natural and [...] prevent diarrhea. Patient verbalized understanding of plan. HOLD METFORMIN X 1 W U[place] RESTART PANTOPRAZOLE DAILY CONTINUE CARAFATE BEFORE MEALS [...] studies if diarrhea does not resolve . Diabetes Mellitus - new diagnosis- I [...] allow for greater blood glucose control. . Well Adult Female - exam completed. Pap and breast exam completed. Pt will be called with results of her testing. She was advised to continue with yearly annual exams. Safe sex practices discussed during office visit today. Call if any abnormal gynecologic issues during the next year, otherwise, RTC yearly or prn. Joint pain-pleuritic chest pain-swelling of gscv-bmglrch-vavtuwc for autoimmune disease such as lupus-plan to [...] prescribed for this patient. SAMPLES OF FETZIMA DECREASE LEXAPRO TO EVERY OTHER DAY X [...] has been appropriately prescribed for this patient. . Elevated Blood Pr essure - without [...] Coleman for counseling Vitamin D deficiency-check labs . Hypertension - wel l controlled - continue with current medications, continue with no added salt diet. Pt has been encouraged to exercise daily. The pt has been advised to call the office if there are any acute concerns about change in blood pressure readings at home. Neck gnor-orthqwymqcoso-qfqat to Dr Mckee for evaluation-patient has been [...] see Dr Mckee for her neck first. 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 Elevated glucose-check Hgb A1C Low back pain-will write letter on patient's behalf for insurance precertification Rmswkia-wgydiqfcix-jvdy controlled-no changes pt needs to take VIT OSPINA D [...] to allow for greater blood glucose control. INCREASE METFORMIN T O A FULL TAB [...] WEAN OFF LEXAPRO. Anemia-check iron panel . Hypertension - wel l controlled - continue with current medications, continue with no added salt diet. Pt has been encouraged to exercise daily. The pt has been advised to call the office if there are any acute concerns about change in blood pressure readings at home. Lumbar radiculopathy-Dr Samuels to do surgery next month. trazodone is to help with insomnia and to help with anxiety and depression. - hold trazodone for now lexapro is for anxiety and depression - increase to two pills daily keep metformin at current dose. 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 . Diabetes Mellitus - controlled [...]
--- OUTSIDE RECORDS SUMMARY | 2019-03-04 02:45 | XMS REPORT | CCD ---
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[employer], [employer]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 09/15/2013 Marital status Unknown M arried 04/14/[address]: 670101144 Never smoker 04/14/2013 Alcohol history Unknown occasionally [...] Fill Instructions amitriptyline 25 mg tablet RxNorm: 371862 2 Tablet(s) PO QHS 09/23/2016 01/20/2017 Active meloxicam 15 mg tablet RxNorm: 308965 1 TABLET(S) PO DAILY 09/08/2016 12/06/[address] on hold until pt needs it: she is going to take (2) 7.5mg until gone cetirizine 10 mg tablet RxNorm: 0732594 1 Tablet(s) PO daily 07/22/2016 No Stop Date Active lisinopril 20 mg-hyd rochlorothiazide 12.5 mg tablet RxNorm: 642354 1 TABLET(S) PO DAILY 06/20/2016 12/16/2016 Active Wellbutrin XL 150 mg 24 hr tablet, extended release RxNorm: 065218 1 TABLET(S) PO DAILY 05/12/2016 08/09/2016 Inactive Victoza 3-Jean 0.6 mg /0.1 mL (18 mg/3 mL) subcutaneous pen injector RxNorm: 738690 0.6 Milligram(s) SQ daily 03/21/2016 07/21/2016 Inactive NovoFine Plus 32 gau ge x 1/6" needle RxNorm: 1 Miscellaneous daily 03/21/2016 07/21/2016 Inactive NovoFine Plus 32 gau ge x 1/6" needle RxNorm: 1 Miscellaneous daily 03/21/2016 03/20/2016 Inactive Victoza 3-Jean 0.6 mg /0.1 mL (18 mg/3 mL) subcutaneous pen injector RxNorm: 504509 0.6 Milligram(s) SQ daily 03/21/2016 03/20/2016 Inactive Vitamin D2 50,000 un it capsule RxNorm: 659785 1 Capsule(s) PO QW 03/20/2016 06/17/2016 Inactive meloxicam 15 mg tablet RxNorm: 754335 1 Tablet(s) PO daily 03/20/2016 07/17/[address] on hold until pt needs it: she is going to take (2) 7.5mg until gone lisinopril 20 mg-hyd rochlorothiazide 12.5 mg tablet RxNorm: 918691 1 TABLET(S) PO DAILY 02/19/2016 05/18/2016 Inactive gabapentin 800 mg ta blet RxNorm: 140090 1 Tablet(s) PO TID 11/09/2015 No Stop Date Active Wellbutrin XL 150 mg 24 hr tablet, extended release RxNorm: 372972 1 Tablet(s) PO daily 11/09/2015 03/07/2016 Inactive Lexapro 10 mg tablet RxNorm: 488795 1 TABLET(S) PO QPM 11/05/2015 11/08/2015 Inactive lisinopril 20 mg-hyd rochlorothiazide 12.5 mg tablet RxNorm: 413212 1 TABLET(S) PO DAILY 10/18/2015 01/15/2016 Inactive Cipro 500 mg tablet RxNorm: 765979 1 Tablet(s) PO BID 08/17/2015 08/23/2015 Inactive Lexapro 10 mg tablet RxNorm: 270542 1 Tablet(s) PO QPM 07/24/2015 10/21/2015 Inactive Vitamin D2 50,000 un it capsule RxNorm: 292592 1 Capsule(s) PO QW 07/24/2015 10/21/2015 Inactive gabapentin 300 mg ca psule RxNorm: 135400 2 Capsule(s) PO TID 07/16/2015 11/08/2015 Inactive lisinopril 20 mg-hyd rochlorothiazide 12.5 mg tablet RxNorm: 325523 1 TABLET(S) PO DAILY 04/09/2015 07/07/2015 Inactive naproxen 250 mg tablet RxNorm: 723033 1-2 Tablet(s) PO BID as needed for pain 03/08/2015 No Stop Date Active Fetzima 40 mg capsul e,extended release RxNorm: 8984293 1 Capsule(s) PO adri y 12/22/2014 12/21/2014 In active Fetzima 40 mg capsul e,extended release RxNorm: 5724718 1 Capsule(s) PO adri y 12/22/2014 06/11/2015 In active Xanax 0.5 mg tablet RxNorm: 298869 1 Tablet(s) TAKE 1 TABLET BY MOUTH TWICE DAILY NEEDED FOR ANXIETY 11/17/2014 01/15/2015 Inactive lisinopril 20 mg-hyd rochlorothiazide 12.5 mg tablet RxNorm: 375638 1 Tablet(s) PO daily 11/17/2014 03/16/2015 Inactive Fetzima 20 mg capsul e,extended release RxNorm: 8163264 1 Capsule(s) PO adri y 11/17/2014 12/22/2014 In active Xanax 0.5 mg tablet RxNorm: 102462 1 Tablet(s) TAKE 1 TABLET BY MOUTH TWICE DAILY NEEDED FOR ANXIETY 10/27/2014 11/16/2014 Inactive Xanax 0.5 mg tablet RxNorm: 016322 TAKE 1 TABLET BY MOUTH TWICE DAILY NE EDED FOR ANXIETY 08/25/2014 10/23/2014 Inactive Brintellix 10 mg tablet RxNorm: 2245503 1 Tablet(s) PO daily 07/04/2014 07/03/2014 Inactive Brintellix 10 mg tablet RxNorm: 1681861 1 Tablet(s) PO daily 07/04/2014 11/16/2014 Inactive Brintellix 10 mg tablet RxNorm: 0710168 1 Tablet(s) PO daily 06/09/2014 07/03/2014 Inactive Contrave 8 mg-90 mg tablet,extended release RxNorm: 0000719 2 Tablet(s) PO BID 06/09/2014 09/06/2014 In active 1 tab q am x 1 week, then 1 tab BID x 1 week, then 2 q am and 1 q pm x 1 week then 2 tabs BID thereafter Contrave 8 mg-90 mg tablet,extended release RxNorm: 7608426 2 Tablet(s) PO BID 06/09/2014 06/08/2014 In active 1 tab q am x 1 week, then 1 tab BID x 1 week, then 2 q am and 1 q pm x 1 week then 2 tabs BID thereafter metformin 500 mg tablet RxNorm: 721576 1/2 Tablet(s) PO BID 05/18/2014 09/14/2014 Inactive Brintellix 10 mg tablet RxNorm: 2776390 2 Tablet(s) PO daily 05/16/2014 06/08/2014 Inactive Xanax 0.5 mg tablet RxNorm: 927665 1 Tablet(s) PO BID PRN 04/06/2014 08/25/2014 Inactive Wellbutrin XL 150 mg 24 hr tablet, extended release RxNorm: 609620 1 Tablet(s) PO daily 04/04/2014 05/15/2014 Inactive [SAVINGS FOR UNINSURED PATIENTS -- BIN:0 37946, PCN: [id number], Group: [id number], ID# [id number], Process claim through [employer], for questions: . THIS IS NOT INSURANCE.] pantoprazole 40 mg t ablet,delayed release RxNorm: 819500 1 Tablet(s) PO daily 12/01/2013 03/30/2014 In active Vitamin D3 2,000 uni t tablet RxNorm: 599168 1 Tablet(s) PO daily 10/10/2013 No Stop Date Active Vitamin D2 50,000 un it capsule RxNorm: 637427 1 Capsule(s) PO QW 10/10/2013 11/16/2014 Inactive vitamin d 50,000 units weekly x 12 weeks then 5000 units daily thereafter escitalopram 20 mg t ablet RxNorm: 669084 1 Tablet(s) PO daily 10/10/2013 04/04/2014 Inactive trazodone 100 mg tablet RxNorm: 991698 1 TABLET(S) PO QHS 09/19/2013 01/16/2014 Inactive trazodone 100 mg tablet RxNorm: 015945 1 Tablet(s) PO QHS 08/16/2013 09/14/2013 Inactive metformin 500 mg tablet RxNorm: 843731 1 Tablet(s) PO BID 08/16/2013 04/03/2014 Inactive Diflucan 150 mg tablet RxNorm: 562515 1 Tablet(s) PO daily 08/16/2013 08/22/2013 Inactive metformin 500 mg tablet RxNorm: 449525 1/2 Tablet(s) PO BID 1/2 tab in the even ing x 1 week then 1/2 tab twice daily 04/26/2013 08/15/2013 Inactive Vitamin D2 50,000 un it capsule RxNorm: 540411 1 Capsule(s) PO QW 04/21/2013 10/09/2013 Inactive vitamin d 50,000 units weekly x 12 weeks then 5000 units daily thereafter Lexapro 10 mg tablet RxNorm: 428722 1 Tablet(s) PO daily 04/14/2013 10/09/2013 Inactive tizanidine 2 mg tablet RxNorm: 940936 1 Tablet(s) PO TID No Start Date Active diclofenac 75 mg-mis oprostol 200 mcg tablet,immediate,delayed release RxNorm: 4284033 1 Tablet(s) PO BID No Start Date Active methocarbamol 500 mg tablet RxNorm: 796345 1 Tablet(s) PO TID No Start Date Active lisinopril 20 mg-hyd rochlorothiazide 12.5 mg tablet RxNorm: 014721 1 Tablet(s) PO daily No Start Date 11/16/2014 Inactive gabapentin 300 mg ca psule RxNorm: 745672 1 Capsule(s) PO TID No Start Date 07/15/2015 Inactive cetirizine 10 mg tablet RxNorm: 1822884 1 Tablet(s) PO daily No Start Date 03/05/2016 Inactive Vitamin D2 50,000 un it capsule RxNorm: 048805 1 Capsule(s) PO QW No Start Date 04/20/2013 Inactive pantoprazole 40 mg t ablet,delayed release RxNorm: 015782 1 Tablet(s) PO daily No Start Date 10/09/2013 Inactive amitriptyline 10 mg tablet RxNorm: 817592 1 Tablet(s) PO QHS No Start Date 09/22/2016 Inactive meloxicam 7.5 mg tablet RxNorm: 963249 1 Tablet(s) PO daily No Start Date 03/19/2016 Inactive ibuprofen 200 mg tablet RxNorm: 911806 3 Tablet(s) PO TID No Start Date 11/30/2013 Inactive Advair Diskus 250 mc g-50 mcg/dose powder for inhalation RxNorm: 6877412 2 INH daily No Start Date 07/23/2015 [...] 10/10/2013 Laboratory exam ordered as part of [facility] general medical examination ICD-9: V72.62 10/06/2013 Swelling of extremity ICD-9: 729.81 09/15/2013 JOINT PAIN-UNSPEC ICD-9: 719.40 09/15/2013 Pleuritic chest pain ICD-9: 786.52 09/15/2013 Well woman exam with routine gynecological exam ICD-9: V72.31 09/15/2013 Nasal septal ulcer ICD-9: 478.19 09/15/2013 ANEMIA ICD-9: 285.9 08/07 DM W/O COMPLICATION TYPE II, UNCONTROLLED SNOMED: 68724707 ICD-9: 250.02 08/16/2013 Urinary tract infection ICD-9: [...] Code Item Item Code Result Date %Hba1C Soz395 % HbA1c 18692-9 6.3 % 08/05/2016 %Hba1C Nla738 Gluc [address] 134 mg/dL 08/05/2016 Alena [id number] ALENA ([place]) S CREEN NONE DETECTED 017 Vitamin D 25 Oh Dee6463 VITAMIN D, 25 HYDROXY 32.26 ng/mL 03/07/2016 Ra Factor Xpv670 RA FACT OR <10 IU/ml 03/07/2016 C-Reactive Protein Qnt Crqnt CRP 2.0 mg/dl 03/06/2016 Sed Rate Ord21 ESR 32 mm/hr 03/06/2016 %Hba1C Dvd467 % HbA1c 82878-8 6.3 % 03/06/2016 %Hba1C Gdb385 Gluc Ave 134 mg/dL 03/06/2016 Comp Metabolic Bxp921 NA 138 mEq/L 03/06/2016 Comp Metabolic Iuf273 K 4.3 mEq/L 03/06/2016 Comp Metabolic Ttz847 CL 103 mEq/L 03/06/2016 Comp Metabolic Itc440 CO2 23.0 mEq/L 03/06/2016 Comp Metabolic Cko802 AN ION GAP 16 03/06/2016 Comp Metabolic Yti652 GL UCOSE 148 mg/dL 03/06/2016 Comp Metabolic Qow845 Cr eat 0.6 mg/dL 03/06/2016 Comp Metabolic Anh821 eG FR 104 ml/min/1.73m2 02/07 Comp Metabolic Rne012 BUN 13 mg/dL 03/06/2016 Comp Metabolic Caq083 B/ C Ratio 20.3 Ratio 03/06/2016 Comp Metabolic Qpd378 CA LCIUM 9.7 mg/dL 03/06/2016 Comp Metabolic Mqt123 AL K PHOS 146 U/L 03/06/2016 Comp Metabolic Jtj638 T(SGOT) 25 U/L 03/06/2016 Comp Metabolic Fdz564 AL T(SGPT) 25 U/L 03/06/2016 Comp Metabolic Sha407 BI LI T 0.3 mg/dL 03/06/2016 Comp Metabolic Sjg949 AL BUMIN 4.1 g/dL 03/06/2016 Comp Metabolic Dku407 TP RO 6.9 g/dL 03/06/2016 Comp Metabolic Keb934 GL OB 2.8 g/dL 03/06/2016 Comp Metabolic Lfy281 A/ G Ratio 1.5 Ratio 03/06/2016 Comp Metabolic Jpd050 Os mo 279 mOsmo 03/06/2016 Cbc With [...] 83.0 fl 03/06/2016 Cbc With Differential Ord2 [place]% 9.2 % 03/06/2016 Cbc With Differential Ord2 MCH 27.1 pg 03/06/2016 Cbc With Differential Ord2 Eos% 3.1 % 03/06/2016 Cbc With Differential Ord2 MCHC 32.7 pg 03/06/2016 Cbc With Differential Ord2 PLT 288 K/ul 03/06/2016 Cbc With Differential Ord2 Baso% 0.9 % 03/06/2016 Cbc With Differential Ord2 Neut ABS# 3.62 K/ul 03/06/2016 Cbc With Differential Ord2 RDW 14.1 % 03/06/2016 Cbc With Differential Ord2 Lymph ABS# 1.35 K/ul 03/06/2016 Cbc With Differential Ord2 [place] ABS# 0.5 K/ul 03/06/2016 Cbc With Differential Ord2 Eos ABS# 0.2 K/ul 03/06/2016 Cbc With Differential Ord2 Baso ABS# 0.1 K/ul 03/06/2016 Tsh Ord6 hTSH II 3.61 uIU/mL 03/06/2016 Culture Urine [id number] URI NE CULTURE SEE NOTES 08/20/2015 Culture Urine [id number] Con tinued Results 08/20/2015 Urine Culture Ucult Comp lete Growth of aerobe sent to ref lab 08/18/2015 Vitamin D 25 Oh Rny5358 VITAMIN D, 25 HYDROXY 24.39 ng/mL 07/18/2015 Comp Metabolic Cwz942 NA 136 mEq/L 07/17/2015 Comp Metabolic Yze229 K 4.0 mEq/L 07/17/2015 Comp Metabolic Zzm548 CL 100 mEq/L 07/17/2015 Comp Metabolic Cta099 CO2 27.0 mEq/L 07/17/2015 Comp Metabolic Hwm693 AN ION GAP 13 07/17/2015 Comp Metabolic Avs837 GL UCOSE 121 mg/dL 07/17/2015 Comp Metabolic Ynt490 Cr eat 0.7 mg/dL 07/17/2015 Comp Metabolic Ktq697 eG FR 96 ml/min/1.73m2 07/16 Comp Metabolic Iyh726 BUN 10 mg/dL 07/17/2015 Comp Metabolic Isx887 B/ C Ratio 14.5 Ratio 07/17/2015 Comp Metabolic Xwg891 CA LCIUM 8.9 mg/dL 07/17/2015 Comp Metabolic Hfd696 AL K PHOS 146 U/L 07/17/2015 Comp Metabolic Bsj350 T(SGOT) 20 U/L 07/17/2015 Comp Metabolic Zmx092 AL T(SGPT) 22 U/L 07/17/2015 Comp Metabolic Dwx095 BI LI T 0.4 mg/dL 07/17/2015 Comp Metabolic Mdq451 AL BUMIN 4.0 g/dL 07/17/2015 Comp Metabolic Emh226 TP RO 6.6 g/dL 07/17/2015 Comp Metabolic Wpp204 GL OB 2.6 g/dL 07/17/2015 Comp Metabolic Fyz373 A/ G Ratio 1.6 Ratio 07/17/2015 Comp Metabolic Fya692 Os mo 272 mOsmo 07/17/2015 Sed Rate Ord21 ESR 11 mm/hr 07/17/2015 Cbc With Differential Ord2 WBC 7.38 K/ul 07/17/2015 Cbc With Differential Ord2 RBC 4.82 M/ul 07/17/2015 Cbc With Differential Ord2 HGB 12.6 g/dl 07/17/2015 Cbc With Differential Ord2 Neut% 69.3 % 07/17/2015 Cbc With Differential Ord2 HCT 40.3 % 07/17/2015 Cbc With Differential Ord2 Lymph% 16.9 % 07/17/2015 Cbc With Differential Ord2 MCV 83.6 fl 07/17/2015 Cbc With Differential Ord2 [place]% 12.6 % 07/17/2015 Cbc With Differential Ord2 MCH 26.1 pg 07/17/2015 Cbc With Differential Ord2 Eos% 0.7 % 07/17/2015 Cbc With Differential Ord2 MCHC 31.3 pg 07/17/2015 Cbc With Differential Ord2 Baso% 0.5 % 07/17/2015 Cbc With Differential Ord2 PLT 308 K/ul 07/17/2015 Cbc With Differential Ord2 RDW 16.5 % 07/17/2015 Cbc With Differential Ord2 Neut ABS# 5.11 K/ul 07/17/2015 Cbc With Differential Ord2 Lymph ABS# 1.25 K/ul 07/17/2015 Cbc With Differential Ord2 [place] ABS# 0.9 K/ul 07/17/2015 Cbc With Differential [...] Crqnt CRP 2.9 mg/dl 07/17/2015 GFR CALC 2752476 GFR AA >60 ML/MIN 10/06/2013 GFR CALC 5395434 GFR NON -AA >60 ML/MIN 10/06/2013 CHEM 14 3168414 AST 34 U/L 10/06/2013 CHEM 14 1984586 ALT 30 IU/L 10/06/2013 CHEM 14 6023082 BUN 11 MG/DL 10/06/2013 CHEM 14 3567087 ALBUMIN 4.4 GM/DL 10/06/2013 CHEM 14 5575183 CHLORIDE 107 MMOL/L 10/06/2013 CHEM 14 1203308 BILI TOT 0.4 MG/DL 10/06/2013 CHEM 14 3006022 ALK PHOS 133 U/L 10/06/2013 CHEM 14 3396766 SODIUM 140 MMOL/L 10/06/2013 CHEM 14 6902499 CREATINI NE 0.67 MG/DL 10/06/2013 CHEM 14 3118707 CALCIUM 9.3 MG/DL 10/06/2013 CHEM 14 9034517 POTASSIUM 4.0 MMOL/L 10/06/2013 CHEM 14 3764506 PROT TOT 7.1 GM/DL 10/06/2013 CHEM 14 4973507 GLUCOSE 108 MG/DL 10/06/2013 CHEM 14 1587778 BICARB 25 MMOL/L 10/06/2013 CHEM 14 3803330 ANION GAP 8 MEQ/L 10/06/2013 VIT D TOTL 0629470 VIT D TOTL 37 NG/ML 10/06/2013 GC/CHL PRB 7940953 CHLM PROBE NEG 09/21/2013 GC/CHL PRB 3424929 GC ME OBE NEG 09/21/2013 DNA AB 1890070 DNA AB 36 IU/ML 09/17/2013 RA FACTOR 9763906 RA FAC TOR <20.0 IU/ML 09/16/2013 SM MUSC AB 1659880 SM MU SC AB <1:20 09/16/2013 CARDIO G/M 4354632 CARDI O IGG 1.7 GPLU 09/16/2013 CARDIO G/M 8415230 CARDI O IGM 4.8 MPLU 09/16/2013 ALENA SCR [id number] ALENA SCR <1:80 09/16/2013 CRP 2380809 CRP 1.1 MG/DL 09/15/2013 ESR 4599166 ESR 22 MM/HR 09/15/2013 CBC 5918424 WBC 5.5 10e9/L 04/26/2013 CBC 7174291 RBC 4.89 10e12/L 04/26/2013 CBC 8832915 HGB 12.8 g/dL 04/26/2013 CBC 6667155 HCT DET 39.5 % 04/26/2013 CBC 5709418 MCV 80.8 fL 04/26/2013 CBC 3830449 MCH 26.2 pg 04/26/2013 CBC 3358292 MCHC 32.4 g/dL 04/26/2013 CBC 9127125 PLT 299 10e9/L 04/26/2013 CBC 7687093 MPV 10.9 fL 04/26/2013 CBC 9816922 WAN % 59.0 % 04/26/2013 CBC 5895548 LY % 29.6 % 04/26/2013 CBC 7879604 MON % 9.1 % 04/26/2013 CBC 8038856 EOS % 1.8 % 04/26/2013 CBC 0712640 BASO % 0.5 % 04/26/2013 CBC 1101797 RDW 13.9 % 04/26/2013 CBC 1737344 ABS WAN 3.25 10e9/L 04/26/2013 CBC 6899647 ABS LYMPH 1.63 10e9/L 04/26/2013 CBC 0403539 ABS MONO 0.50 10e9/L 04/26/2013 CBC 0381589 ABS EOS 0.10 10e9/L 04/26/2013 CBC 2997725 ABS BASO 0.03 10e9/L 04/26/2013 CBC 7155935 RDW-SD 39.9 fL 04/26/2013 URINALYSIS NONAUTO W/O SCOPE 61334 Specific [place] 1.020 DateTime(Free Text in Apr) URINALYSIS NONAUTO W/O SCOPE 49301 PH 6.0 DateTime(Free Rik t in Aprima) URINALYSIS NONAUTO W/O SCOPE 77114 GLUCOSE neg DateTime(Free Rik t in Aprima) URINALYSIS NONAUTO W/O SCOPE 28920 Protein neg DateTime(Free Rik t in Aprima) URINALYSIS NONAUTO W/O SCOPE 10182 Blood neg DateTime(Free Rik t in Aprima) URINALYSIS NONAUTO W/O SCOPE 02569 Bilirubin neg DateTime(Free Rik t in Aprima) URINALYSIS NONAUTO W/O SCOPE 45876 Ketones neg DateTime(Free Rik t in Apr) URINALYSIS NONAUTO W/O SCOPE 76313 Urobilinogen neg DateTime(Free Text in ) URINALYSIS NONAUTO W/O SCOPE 65297 Nitrite neg DateTime(Free Rik t in ) URINALYSIS NONAUTO W/O SCOPE 80973 Leukocytes 1+ DateTime(Free Text in ) Review [...] 03/06/2016 Musculoskeletal joint complaint 03/06/2016 Psychiatric anxiety 12/2 11/2015 Psychiatric depression 1 05/07/2015 Ears/Nose/Throat/Neck headache 03/06/2016 [...] No alteration of consciousness 07/16/2015 Psychiatric anxiety 11/2015 Psychiatric depression 0 07/16/2015 Constitutional No [...] No alteration of consciousness 10/10/2013 Psychiatric anxiety 0806/2013 Endocrine No dry or coarse skin 10/10/2013 [...] tenderness 04/14/2013 None Full Exam - General 1995 Abdomen [...] Procedures Procedure Codes Date IMMUNIZATION ADMIN CPT-4: 38250Faiycws 12/07/2015 FLU VACC 4 AMBER 3 YRS PLUS IM SNOMED CT: 86016694 CPT-4: 71429Waybilc 12/07/2015 URINALYSIS NONAUTO W /O SCOPE CPT-4: 49684Qibmkwh 08/17/2015 CHEM 14 (COMPREHEN M ETABOLIC PANEL) CPT-4: 59293Gliqlyb 10/06/2013 VIT D TOTL (VITAMIN D 25 HYDROXY) CPT-4: 62676Nohrhks 10/06/2013 CRP (C-REACTIVE PROT EIN) CPT-4: 56596Jvgtsva 09/15/2013 ESR (RBC SED RATE AU TOMATED) CPT-4: 39306Hysmgdm 09/15/2013 ROUTINE VENIPUNCTURE CPT-4: 76190Chmluwl 09/15/2013 URINALYSIS NONAUTO W /O SCOPE CPT-4: 91281Erdltlf 08/16/2013 C URINE RT CPT-4: 8644335Xcfqkri 08/16/2013 C URINE RT (URINE CU LTURE/COLONY COUNT) CPT-4: 94387Yuvnihg 08/16/2013 ROUTINE VENIPUNCTURE CPT-4: 04328Rmxmnqy 04/26/2013 Vital Signs Date Vital 08/05/2016 Blood Pressure 1: 134/82 Code: 8480-6 Heart Rate 1: 113 bpm Height: 5'5" SpO2: 98% 07/22/2016 Blood Pressure 1: 142/84 Code: 8480-6 BMI: 39.6 Code: 93248-7 Heart Rate 1: 103 bpm Height: 5'5" SpO2: 97% Weight: 238 lbs 03/06/2016 Blood Pressure 1: 138/86 Code: 8480-6 Heart Rate 1: 100 bpm SpO2: 96% Weight: 246 lbs 12/07/2015 Blood Pressure 1: 140/78 Code: 8480-6 BMI: 40.8 Code: 99758-0 Heart Rate 1: 97 bpm Height: 5'6" SpO2: 98% Weight: 250 lbs 11/09/2015 Blood Pressure 1: 118/84 Code: 8480-6 BMI: 40.7 Code: 08027-8 Heart Rate 1: 85 bpm Height: 5'6" SpO2: 98% Weight: 249 lbs 08/17/2015 Blood Pressure 1: 122/82 Code: 8480-6 BMI: 39.4 Code: 26441-9 Heart Rate 1: 86 bpm Height: 5'6" SpO2: 95% Weight: 241 lbs 07/24/2015 Blood Pressure 1: 118/76 Code: 8480-6 BMI: 39.9 Code: 36829-0 Heart Rate 1: 97 bpm Height: 5'6" SpO2: 96% Weight: 244 lbs 07/16/2015 Blood Pressure 1: 158/80 Code: 8480-6 Blood Pressure 1: 120/86 Code: 8480-6 Heart Rate 1: 105 bpm Height: 5'6" SpO2: 98% Weight: 06/12/2015 Blood Pressure 1: 128/82 Code: 8480-6 BMI: 39.9 Code: 63021-6 Heart Rate 1: 89 bpm Height: 5'6" SpO2: 98% Weight: 244 lbs 03/08/2015 Blood Pressure 1: 130/86 Code: 8480-6 Heart Rate 1: 98 bpm Height: 5'6" SpO2: 97% Weight: 12/29/2014 Blood Pressure 1: 138/88 Code: 8480-6 BMI: 39.2 Code: 87070-3 Heart Rate 1: 109 bpm Height: 5'6" SpO2: 97% Weight: 240 lbs 11/17/2014 Blood Pressure 1: 170/98 Code: 8480-6 BMI: 39.7 Code: 27644-9 Heart Rate 1: 92 bpm Height: 5'6" SpO2: 98% Weight: 243 lbs 05/16/2014 Blood Pressure 1: 130/82 Code: 8480-6 BMI: 39.2 Code: 24333-3 Heart Rate 1: 88 bpm Height: 5'6" Weight: 240 lbs 04/04/2014 Blood Pressure 1: 146/92 Code: 8480-6 Blood Pressure 2: 136/86 Code: 8480-6 BMI: 39.9 Code: 62532-0 Heart Rate 1: 68 bpm Height: 5'6" Weight: 244 lbs 12/01/2013 Blood Pressure 1: 142/80 Code: 8480-6 BMI: 38.4 Code: 86332-8 Heart Rate 1: 80 bpm Height: 5'6" Weight: 235 lbs 10/10/2013 Blood Pressure 1: 128/88 Code: 8480-6 BMI: 38.7 Code: 73320-9 Heart Rate 1: 88 bpm Height: 5'6" Weight: 237 lbs 09/15/2013 Blood Pressure 1: 112/74 Code: 8480-6 BMI: 39.0 Code: 62721-2 Heart Rate 1: 80 bpm Height: 5'6" Weight: 239 lbs 08/16/2013 Blood Pressure 1: 124/64 Code: 8480-6 BMI: 39.0 Code: 46785-8 Heart Rate 1: 88 bpm Height: 5'6" Weight: 239 lbs 06/06/2013 Blood Pressure 1: 120/72 Code: 8480-6 BMI: 37.9 Code: 57232-0 Heart Rate 1: 84 bpm Height: 5'6" Weight: 232 lbs 04/26/2013 Blood Pressure 1: 148/86 Code: 8480-6 BMI: 37.7 Code: 14701-0 Heart Rate 1: 84 bpm Height: 5'6" Weight: 231 lbs 04/14/2013 Blood Pressure 1: 148/92 Code: 8480-6 BMI: 38.2 Code: 44068-8 Heart Rate 1: 88 bpm Height: 5'6" [...] Encounters Encounter Performer Loca tion Codes Date ([id number]) [id number] EST. P ATIENT, LEVEL III Diagnosis: Impaired fasting glucose[ICD10: R73.01] Diagnosis: Low back pain[ICD10: M54.5] Diagnosis: Generalized anxiety disorder[ICD10: F41.1] Katy Manzanares MD, [facility] CPT-4: 75439 08/05/2016 ([id number]) 84419 EST. P ATIENT, LEVEL III Diagnosis: Essential (primary) hypertension[ICD10: I10] Diagnosis: Radiculopathy, lumbar region[ICD10: M54.16] [facility] CPT-4: 48840 07/22/2016 ([id number]) Miscellaneou s no charge Diagnosis: Dysuria[ICD10: R30.0] Ally Manzanares MD, [facility] CPT-4: 02004 06/12/2016 ([id number] 38928 EST. P ATIENT, LEVEL IV Diagnosis: Type 2 diabetes mellitus without complications[ICD10: E11.9] Diagnosis: Vitamin D deficiency, unspecified[ICD10: E55.9] Diagnosis: Generalized anxiety disorder[ICD10: F41.1] Diagnosis: Essential (primary) hypertension[ICD10: I10] Diagnosis: Radiculopathy, cervical region[ICD10: M54.12] Diagnosis: Cardiac murmur, unspecified[ICD10: R01.1] Katy Manzanares MD, [facility] CPT-4: 34805 03/06/2016 ([id number]) 84121 EST. 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 P ATIENT, LEVEL IV Diagnosis: Essential (primary) hypertension[ICD10: I10] Diagnosis: Generalized anxiety disorder[ICD10: F41.1] Diagnosis: Other obesity due to excess calories[ICD10: E66.09] Katy Manzanares MD, [facility] CPT-4: 88965 11/09/2015 ([id number]) 41590 EST. P ATIENT, LEVEL III Diagnosis: Urinary tract infection, site not specified[ICD10: N39.0] Katy Manzanares MD, [facility] CPT-4: 05194 08/17/2015 ([id number]) 57111 EST. P ATIENT, LEVEL III Diagnosis: Generalized anxiety disorder[ICD10: F41.1] Diagnosis: Major depressive disorder, recurrent, moderate[ICD10: F33.1] Katy Manzanares MD, [facility] CPT-4: 89041 07/24/2015 ([id number]) 88531 EST. P ATIENT, LEVEL IV Diagnosis: Myalgia[ICD10: M79.1] Diagnosis: Low back pain[ICD10: M54.5] Diagnosis: Cervicalgia[ICD10: M54.2] Diagnosis: Essential (primary) hypertension[ICD10: I10] Diagnosis: Vitamin D deficiency, unspecified[ICD10: E55.9] Diagnosis: Generalized anxiety disorder[ICD10: F41.1] Katy Manzanares MD, [facility] CPT-4: 24371 07/16/2015 ([id number]) [id number] EST. P ATIENT, LEVEL IV Diagnosis: Cervicalgia[ICD10: M54.2] Diagnosis: Essential (primary) hypertension[ICD10: I10] Diagnosis: Low back pain[ICD10: M54.5] Diagnosis: Radiculopathy, cervical region[ICD10: M54.12] Katy Manzanares MD, [facility] CPT-4: 62016 06/12/2015 [id number] EST. PATIENT, LEVEL III Diagnosis: Sacroiliitis, not elsewhere classified[ICD10: M46.1] Diagnosis: Low back pain[ICD10: M54.5] Diagnosis: Pain in left hip[ICD10: M25.552] Diagnosis: Pain in right hip[ICD10: M25.551] Samantha Manzanares MD, [facility] CPT-4: 78244 03/08/2015 [id number] EST. 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 P ATIENT, LEVEL IV Diagnosis: ESSENTIAL HYPERTENSION[ICD9: 401.9] Diagnosis: Anxiety[ICD9: 300.00] Diagnosis: Depression[ICD9: 311] Katy Manzanares MD, [facility] CPT-4: 82883 11/17/2014 ([id number]) [id number] EST. P ATIENT, LEVEL IV Diagnosis: Anxiety[ICD9: 300.00] Diagnosis: Depression[ICD9: 311] Diagnosis: DIABETES TYPE II[ICD9: 250.00] Diagnosis: Vitamin D deficiency[ICD9: 268.9] Diagnosis: ESSENTIAL HYPERTENSION[ICD9: 401.9] Diagnosis: ABNORMAL WEIGHT GAIN[ICD9: 783.1] Katy Manzanares MD, [facility] CPT- 4: 13810 05/16/2014 ([id number]) [id number] EST. P ATIENT, LEVEL IV Diagnosis: ESSENTIAL HYPERTENSION[ICD9: 401.9] Diagnosis: Anxiety[ICD9: 300.00] Diagnosis: Depression[ICD9: 311] Katy Manzanares MD, [facility] CPT-4: 89855 04/04/2014 ([id number]) 56743 EST. P ATIENT, LEVEL IV Diagnosis: Diarrhea[ICD9: 787.91] Diagnosis: Epigastric pain[ICD9: 789.06] Diagnosis: ESOPHAGEAL REFLUX[ICD9: 530.81] Diagnosis: Blood in stool[ICD9: 578.1] Katy Manzanares MD, [facility] CPT- 4: 55271 12/01/2013 ([id number]) [id number] EST. P ATIENT, LEVEL IV Diagnosis: Vitamin D deficiency[ICD9: 268.9] Diagnosis: DIABETES TYPE II[ICD9: 250.00] Diagnosis: Depression[ICD9: 311] Diagnosis: Insomnia[ICD9: 780.52] Ally Manzanares MD, [facility] CPT-4: 90876 10/10/2013 ([id number]) PREV VISIT E ST AGE 40-64 Diagnosis: Well woman exam with routine gynecological exam[ICD9: V72.31] Diagnosis: JOINT PAIN-UNSPEC[ICD9: 719.40] Diagnosis: Nasal septal ulcer[ICD9: 478.19] Diagnosis: Swelling of extremity[ICD9: 729.81] Diagnosis: Pleuritic chest pain[ICD9: 786.52] Katy Manzanares MD, [facility] CPT-4: 16783 09/15/2013 ([id number]) 86617 EST. P ATIENT, LEVEL IV Diagnosis: DM W/O COMPLICATION TYPE II, UNCONTROLLED[SNOMED: 13610038] Diagnosis: Urinary tract infection[ICD9: 599.0] Diagnosis: DEPRESSIVE DISORDER NEC[ICD9: 311] Diagnosis: Anxiety[ICD9: 300.00] Diagnosis: Insomnia[ICD9: 780.52] Diagnosis: ANEMIA[ICD9: 285.9] Katy Manzanares MD, [facility] CPT-4: 59673 08/16/2013 ([id number]) 03219 EST. P ATIENT, LEVEL III Diagnosis: DM w/o complication type II, uncontrolled[SNOMED: 34874424] Ally Manzanares MD, [facility] CPT-4: 15773 06/06/2013 ([id number]) 53320 EST. P ATIENT, LEVEL III Diagnosis: DIABETES TYPE II[SNOMED: 166033753] [facility] CPT- 4: 16297 04/26/2013 ([id number]) OFFICE VISI T NEW - LEVEL 4 Diagnosis: Elevated blood pressure[ICD9: 796.2] Diagnosis: Depression[ICD9: 311] Diagnosis: Elevated alkaline phosphatase level[ICD9: 790.5] Diagnosis: Elevated glucose[ICD9: 790.29] [facility] CPT-4: 04660 04/14/2013 Plan of Care Planned Activity Notes C odes Status Date Visit Plan: Elevated glucose-check Hgb A 1C Low back pain-will write letter on patient's behalf for insurance precertification Axahbrc-lggxqvfcqc-ppgg controlled-no changes 08/05/2016 Appointment: Katy Do [facility]el[phone] (30 min) Complex 08/05/2016 Patient Education: Patient [...] next month. 07/22/2016 Appointment: Kat[facility] Do WPtel[phone] [phone] (15 min) Moderate 07/22/2016 Patient Education: Patient [...] labs Heart murmur-schedule Echo 03/06/2016 Appointment: Katy Dotel: [address] [place], [place] [phone] (30 min) Complex 03/06/2016 Patient Education: Patient [...] current medications. 12/07/2015 Appointment: Katy Do WPtel: [address] [place], [place] [phone] (30 min) Complex 12/07/2015 Patient Education: Patient [...] weight check. 11/09/2015 Appointment: Katy Do WPtel: [address] [place], [place] [phone] (30 min) Complex 11/09/2015 Patient Education: Patient Medication Summary Completed 11/09/2015 Patient Education: Obesity Completed 11/09/2015 Care Plan: BMI Above normal followup LOLI F-MGMT EDUC & TRAIN 1 PT Pending 11/09/2015 Appointment: Katy Do WPtel: [address] [place], [place] [phone] (30 min) Complex 11/08/2015 Appointment: Kat[facility] Do WPtel[phone] (15 min) Moderate 08/23/2015 Visit Plan: Urinary [...] Completed 08/17/2015 Visit Plan: Anxiety-depression - the dereck george has uncontrolled anxiety and will benefit from an SSRI on a daily basis to attempt control of the symptoms of anxiety (tachycardia, overwhelming sensations, stress, insomnia, etc). Pt is aware of the risks and benefits of treatment with the above medications.Vitamin D deficiency-start vitamin D level 07/24/2015 Appointment: Katy Do WPtel: [phone] [phone] (30 min) Complex 07/24/2015 Patient Education: Patient [...] change in blood pressure readings at home.Neck czyv-riwgpdjwihpgl-vizsg to Dr Mckee for evaluation-patient has been [...] antidepressant has been appropriately prescribed for this patient.SAMPLES OF FETZIMA 11/17/2014 Appointment: (30 min) Complex 11/17/2014 Patient Education: Patient Medication Summary Completed 11/17/2014 Patient Education: Hypertension Completed 11/17/2014 Appointment: (15 min) Moderate 09/04/2014 Appointment: Katy Do WPtel: [facility] [phone] Follow up 07/07/2014 Visit Plan: Anxiety and [...] Completed 05/16/2014 Appointment: Katy Do WPtel: [phone] [phone] Follow up 05/09/2014 Visit Plan: Hypertension - [...] this patient. 2014 Appointment: Katy Do WPtel: [phone] Follow up 04/04/2014 Patient Education: Patient Medication [...] 12/01/2013 Care Plan: Referral Order SNOMED-CT : [id number] Ordered 12/01/2013 Visit Plan: Diabetes Mellitus - [...] for insomnia. 10/10/2013 Appointment: Ally Manzanares WPtel: [address] [place], [place] [phone] Follow up 10/10/2013 Patient Education: Patient Medication Summary Completed 10/10/2013 Appointment: Ally Manzanares WPtel: [facility] [place] Lab Draw 10/06/2013 Patient Education: Patient Medication Summary Completed 10/06/2013 Appointment: Ally Manzanares WPtel: [address] [place], [place] [id number] [place] Follow up 10/04/2013 Visit Plan: Well Adult Female - exam co mpleted. Pap and breast exam completed. Pt will be called with results of her testing. She was advised to continue with yearly annual exams. Safe sex practices discussed during office visit today. Call if any abnormal gynecologic issues during the next year, otherwise, RTC yearly or prn.Joint pain-pleuritic chest pain-swelling of cmhh-ostnprp-bomxllk for autoimmune disease such as lupus-plan to check labs and proceed as indicated. Instructed patient we will call her with results of labs. 09/15/2013 Appointment: Katy Do WPtel: [phone] [place] Pap Only 09/15/2013 Patient Education: [...] iron panel 08/16/2013 Appointment: Katy Do WPtel: [phone] [place] [address] Follow up 08/16/2013 Patient Education: Patient Medication Summary Completed 08/16/2013 Care Plan: C URINE RT Pending 08/16/2013 Appointment: Katy Do WPtel: [phone] Follow up 08/09/2013 Appointment: Ally Manzanares WPtel: [address] [place], [place] [phone] [place] Follow up 08/08/2013 Visit Plan: Diabetes [...] glucose control. 2013 Appointment: Ally Manzanares WPtel: [address] [place] [address] Follow up 06/06/2013 Patient Education: Patient Medication Summary Completed 06/06/2013 Appointment: Ally Manzanares WPtel: [address] [place] [address] Follow up 05/12/2013 Visit Plan: Diabetes Mellitus [...] glucose control. 2013 Appointment: Katy Do WPtel: [address] [place] [phone] [place] [address] Diabetic education 04/26/2013 Patient Education: Patient Medication Summary Completed 04/26/2013 Visit Plan: Elevated Blood Pressure - [facility] diagnosis of hypertension - pt [...] and hgba1c. 04/14/2013 Appointment: Ally Manzanares WPtel: [address] [place] [address] New Patient 04/14/2013 Patient Education: Patient Medication Summary Completed 04/14/2013 Appointment: Ally Manzanares WPtel: [address] [place] [address] New Patient 04/05/2013 Referral: Dr Trujillo Referral Initiated Instructions Comment INCREASE METFORMIN T O A FULL TAB [...] WEAN OFF LEXAPRO. Anemia-check iron panel . Pt is currently we aring a [...] of plan. HOLD METFORMIN X 1 W [place] RESTART PANTOPRAZOLE DAILY CONTINUE CARAFATE BEFORE MEALS [...] allow for greater blood glucose control. . Hypertension - wel l controlled - [...] or prn. Joint pain-pleuritic chest pain-swelling of kqsq-cddnnrj-zplrcvz for autoimmune disease such as lupus-plan to [...] dose. tow picker RX for vitamin D 44622 units weekly. . Diabetes Mellitus - controlled [...] trazodone for PRN use for insomnia. . Elevated Blood Pr essure - without [...] in 2 months for weight check . Hypertension - wel l controlled - [...] in blood pressure readings at home. Neck nlrl-cjaykklpkvcxr-aivvr to Dr Mckee for evaluation-patient has been [...] see Dr Mckee for her neck first. [phone] Samuels and call Sandee to tow picker a copy . Elevated glucose-check Hgb A1C Low back pain-will write letter on patient's behalf for insurance precertification Srmodkd-bbflyznbit-fhwp controlled-no changes Decrease fetzima to 20 mg daily over [...]
--- OUTSIDE RECORDS SUMMARY | 2019-03-04 02:46 | XMS REPORT | CCD ---
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[employer], [employer] and new [employer] layed 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 employees and he brought in new people 09/15/2013 Marital status Unknown M arried 04/14/[address]: 697276371 Never smoker 04/14/2013 Alcohol history Unknown occasionally [...] Date Stop Date Sta tus Fill Instructions meloxicam 15 mg tablet RxNorm: 547113 1 TABLET(S) PO DAILY 09/08/2016 12/06/[address] on hold until pt needs it: she is going to take (2) 7.5mg until gone cetirizine 10 mg tablet RxNorm: 9984732 1 Tablet(s) PO daily 07/22/2016 No Stop Date Active lisinopril 20 mg-hyd rochlorothiazide 12.5 mg tablet RxNorm: 023760 1 TABLET(S) PO DAILY 06/20/2016 12/16/2016 Active Wellbutrin XL 150 mg 24 hr tablet, extended release RxNorm: 472957 1 TABLET(S) PO DAILY 05/12/2016 08/09/2016 Inactive Victoza 3-Jean 0.6 mg /0.1 mL (18 mg/3 mL) subcutaneous pen injector RxNorm: 917581 0.6 Milligram(s) SQ daily 03/21/2016 07/21/2016 Inactive NovoFine Plus 32 gau ge x 1/6" needle RxNorm: 1 Miscellaneous daily 03/21/2016 07/21/2016 Inactive NovoFine Plus 32 gau ge x /6" needle RxNorm: 1 Miscellaneous daily 03/21/2016 03/20/2016 Inactive Victoza 3-Jean 0.6 mg /0.1 mL (18 mg/3 mL) subcutaneous pen injector RxNorm: 907763 0.6 Milligram(s) SQ daily 03/21/2016 03/20/2016 Inactive Vitamin D2 50,000 un it capsule RxNorm: 775337 1 Capsule(s) PO QW 03/20/2016 06/17/2016 Inactive meloxicam 15 mg tablet RxNorm: 373827 1 Tablet(s) PO daily 03/20/2016 07/17/[address] on hold until pt needs it: she is going to take (2) 7.5mg until gone lisinopril 20 mg-hyd rochlorothiazide 12.5 mg tablet RxNorm: 747282 1 TABLET(S) PO DAILY 02/19/2016 05/18/2016 Inactive gabapentin 800 mg ta blet RxNorm: 299961 1 Tablet(s) PO TID 11/09/2015 No Stop Date Active Wellbutrin XL 150 mg 24 hr tablet, extended release RxNorm: 620184 1 Tablet(s) PO daily 11/09/2015 03/07/2016 Inactive Lexapro 10 mg tablet RxNorm: 843854 1 TABLET(S) PO QPM 11/05/2015 11/08/2015 Inactive lisinopril 20 mg-hyd rochlorothiazide 12.5 mg tablet RxNorm: 865553 1 TABLET(S) PO DAILY 10/18/2015 01/15/2016 Inactive Cipro 500 mg tablet RxNorm: 800977 1 Tablet(s) PO BID 08/17/2015 08/23/2015 Inactive Lexapro 10 mg tablet RxNorm: 259889 1 Tablet(s) PO QPM 07/24/2015 10/21/2015 Inactive Vitamin D2 50,000 un it capsule RxNorm: 003423 1 Capsule(s) PO QW 07/24/2015 10/21/2015 Inactive gabapentin 300 mg ca psule RxNorm: 389251 2 Capsule(s) PO TID 07/16/2015 11/08/2015 Inactive lisinopril 20 mg-hyd rochlorothiazide 12.5 mg tablet RxNorm: 660995 1 TABLET(S) PO DAILY 04/09/2015 07/07/2015 Inactive naproxen 250 mg tablet RxNorm: 375708 1-2 Tablet(s) PO BID as needed for pain 03/08/2015 No Stop Date Active Fetzima 40 mg capsul e,extended release RxNorm: 6925569 1 Capsule(s) PO adri y 12/22/2014 12/21/2014 In active Fetzima 40 mg capsul e,extended release RxNorm: 9249708 1 Capsule(s) PO adri y 12/22/2014 06/11/2015 In active Xanax 0.5 mg tablet RxNorm: 743397 1 Tablet(s) TAKE 1 TABLET BY MOUTH TWICE DAILY NEEDED FOR ANXIETY 11/17/2014 01/15/2015 Inactive lisinopril 20 mg-hyd rochlorothiazide 12.5 mg tablet RxNorm: 110547 1 Tablet(s) PO daily 11/17/2014 03/16/2015 Inactive Fetzima 20 mg capsul e,extended release RxNorm: 7640858 1 Capsule(s) PO adri y 11/17/2014 12/22/2014 In active Xanax 0.5 mg tablet RxNorm: 122493 1 Tablet(s) TAKE 1 TABLET BY MOUTH TWICE DAILY NEEDED FOR ANXIETY 10/27/2014 11/16/2014 Inactive Xanax 0.5 mg tablet RxNorm: 826870 TAKE 1 TABLET BY MOUTH TWICE DAILY NE EDED FOR ANXIETY 08/25/2014 10/23/2014 Inactive Brintellix 10 mg tablet RxNorm: 5613434 1 Tablet(s) PO daily 07/04/2014 07/03/2014 Inactive Brintellix 10 mg tablet RxNorm: 0414916 1 Tablet(s) PO daily 07/04/2014 11/16/2014 Inactive Brintellix 10 mg tablet RxNorm: 0770928 1 Tablet(s) PO daily 06/09/2014 07/03/2014 Inactive Contrave 8 mg-90 mg tablet,extended release RxNorm: 7057224 2 Tablet(s) PO BID 06/09/2014 09/06/2014 In active 1 tab q am x 1 week, then 1 tab BID x 1 week, then 2 q am and 1 q pm x 1 week then 2 tabs BID thereafter Contrave 8 mg-90 mg tablet,extended release RxNorm: 5328450 2 Tablet(s) PO BID 06/09/2014 06/08/2014 In active 1 tab q am x 1 week, then 1 tab BID x 1 week, then 2 q am and 1 q pm x 1 week then 2 tabs BID thereafter metformin 500 mg tablet RxNorm: 309304 1/2 Tablet(s) PO BID 05/18/2014 09/14/2014 Inactive Brintellix 10 mg tablet RxNorm: 3743893 2 Tablet(s) PO daily 05/16/2014 06/08/2014 Inactive Xanax 0.5 mg tablet RxNorm: 972591 1 Tablet(s) PO BID PRN 04/06/2014 08/25/2014 Inactive Wellbutrin XL 150 mg 24 hr tablet, extended release RxNorm: 222556 1 Tablet(s) PO daily 04/04/2014 05/15/2014 Inactive [SAVINGS FOR UNINSURED PATIENTS -- BIN:0 [id number], PCN: [id number], Group: [id number], ID# [id number], Process claim through [employer], for questions: . THIS IS NOT INSURANCE.] pantoprazole 40 mg t ablet,delayed release RxNorm: 222930 1 Tablet(s) PO daily 12/01/2013 03/30/2014 In active Vitamin D3 2,000 uni t tablet RxNorm: 866269 1 Tablet(s) PO daily 10/10/2013 No Stop Date Active Vitamin D2 50,000 un it capsule RxNorm: 858926 1 Capsule(s) PO QW 10/10/2013 11/16/2014 Inactive vitamin d 50,000 units weekly x 12 weeks then 5000 units daily thereafter escitalopram 20 mg t ablet RxNorm: 322748 1 Tablet(s) PO daily 10/10/2013 04/04/2014 Inactive trazodone 100 mg tablet RxNorm: 190488 1 TABLET(S) PO QHS 09/19/2013 01/16/2014 Inactive trazodone 100 mg tablet RxNorm: 214933 1 Tablet(s) PO QHS 08/16/2013 09/14/2013 Inactive metformin 500 mg tablet RxNorm: 542058 1 Tablet(s) PO BID 08/16/2013 04/03/2014 Inactive Diflucan 150 mg tablet RxNorm: 009180 1 Tablet(s) PO daily 08/16/2013 08/22/2013 Inactive metformin 500 mg tablet RxNorm: 787208 1/2 Tablet(s) PO BID 1/2 tab in the even ing x 1 week then 1/2 tab twice daily 04/26/2013 08/15/2013 Inactive Vitamin D2 50,000 un it capsule RxNorm: 841904 1 Capsule(s) PO QW 04/21/2013 10/09/2013 Inactive vitamin d 50,000 units weekly x 12 weeks then 5000 units daily thereafter Lexapro 10 mg tablet RxNorm: 540483 1 Tablet(s) PO daily 04/14/2013 10/09/2013 Inactive tizanidine 2 mg tablet RxNorm: 887597 1 Tablet(s) PO TID No Start Date Active amitriptyline 10 mg tablet RxNorm: 417594 1 Tablet(s) PO QHS No Start Date Active diclofenac 75 mg-mis oprostol 200 mcg tablet,immediate,delayed release RxNorm: 3500598 1 Tablet(s) PO BID No Start Date Active methocarbamol 500 mg tablet RxNorm: 336772 1 Tablet(s) PO TID No Start Date Active lisinopril 20 mg-hyd rochlorothiazide 12.5 mg tablet RxNorm: 512506 1 Tablet(s) PO daily No Start Date 11/16/2014 Inactive gabapentin 300 mg ca psule RxNorm: 967069 1 Capsule(s) PO TID No Start Date 07/15/2015 Inactive cetirizine 10 mg tablet RxNorm: 6884301 1 Tablet(s) PO daily No Start Date 03/05/2016 Inactive Vitamin D2 50,000 un it capsule RxNorm: 599157 1 Capsule(s) PO QW No Start Date 04/20/2013 Inactive pantoprazole 40 mg t ablet,delayed release RxNorm: 149006 1 Tablet(s) PO daily No Start Date 10/09/2013 Inactive meloxicam 7.5 mg tablet RxNorm: 468570 1 Tablet(s) PO daily No Start Date 03/19/2016 Inactive ibuprofen 200 mg tablet RxNorm: 053063 3 Tablet(s) PO TID No Start Date 11/30/2013 Inactive Advair Diskus 250 mc g-50 mcg/dose powder for inhalation RxNorm: 1131226 2 INH daily No Start Date 07/23/2015 [...] 10/10/2013 Laboratory exam ordered as part of [facility] general medical examination ICD-9: V72.62 10/06/2013 Swelling of extremity ICD-9: 729.81 09/15/2013 JOINT PAIN-UNSPEC ICD-9: 719.40 09/15/2013 Pleuritic chest pain ICD-9: 786.52 09/15/2013 Well woman exam with routine gynecological exam ICD-9: V72.31 09/15/2013 Nasal septal ulcer ICD-9: 478.19 09/15/2013 ANEMIA ICD-9: 285.9 08/07 DM W/O COMPLICATION TYPE II, UNCONTROLLED SNOMED: [id number] ICD-9: 250.02 08/16/2013 Urinary tract infection ICD-9: [...] Code Item Item Code Result Date %Hba1C Vqa684 % HbA1c 39767-2 6.3 % 08/05/2016 %Hba1C Qlw641 Gluc Ave 134 mg/dL 08/05/2016 Alena [id number] ALENA ([place]) S CREEN NONE DETECTED 017 Vitamin D 25 Oh Lqc6342 VITAMIN D, 25 HYDROXY 32.26 ng/mL 03/07/2016 Ra Factor Kos135 RA FACT OR <10 IU/ml 03/07/2016 C-Reactive Protein Qnt Crqnt CRP 2.0 mg/dl 03/06/2016 Sed Rate Ord21 ESR 32 mm/hr 03/06/2016 %Hba1C Cqc491 % HbA1c 89493-7 6.3 % 03/06/2016 %Hba1C Cvv595 Gluc Ave 134 mg/dL 03/06/2016 Comp Metabolic Zrk866 NA 138 mEq/L 03/06/2016 Comp Metabolic Utm692 K 4.3 mEq/L 03/06/2016 Comp Metabolic Ixl299 CL 103 mEq/L 03/06/2016 Comp Metabolic Ntd476 CO2 23.0 mEq/L 03/06/2016 Comp Metabolic Jma094 AN ION GAP 16 03/06/2016 Comp Metabolic Efj101 GL UCOSE 148 mg/dL 03/06/2016 Comp Metabolic Mze734 Cr eat 0.6 mg/dL 03/06/2016 Comp Metabolic Wpv462 eG FR 104 ml/min/1.73m2 02/07 Comp Metabolic Isf792 BUN 13 mg/dL 03/06/2016 Comp Metabolic Uae740 B/ C Ratio 20.3 Ratio 03/06/2016 Comp Metabolic Sfh645 CA LCIUM 9.7 mg/dL 03/06/2016 Comp Metabolic Git700 AL K PHOS 146 U/L 03/06/2016 Comp Metabolic Ezl962 T(SGOT) 25 U/L 03/06/2016 Comp Metabolic Nhi729 AL T(SGPT) 25 U/L 03/06/2016 Comp Metabolic Lik254 BI LI T 0.3 mg/dL 03/06/2016 Comp Metabolic Ash844 AL BUMIN 4.1 g/dL 03/06/2016 Comp Metabolic Gqc322 TP RO 6.9 g/dL 03/06/2016 Comp Metabolic Syx235 GL OB 2.8 g/dL 03/06/2016 Comp Metabolic Huq992 A/ G Ratio 1.5 Ratio 03/06/2016 Comp Metabolic Otj769 Os mo 279 mOsmo 03/06/2016 Cbc With [...] 83.0 fl 03/06/2016 Cbc With Differential Ord2 [place]% 9.2 % 03/06/2016 Cbc With Differential Ord2 [...] 1.35 K/ul 03/06/2016 Cbc With Differential Ord2 [place] ABS# 0.5 K/ul 03/06/2016 Cbc With Differential Ord2 Eos ABS# 0.2 K/ul 03/06/2016 Cbc With Differential Ord2 Baso ABS# 0.1 K/ul 03/06/2016 Tsh Ord6 hTSH II 3.61 uIU/mL 03/06/2016 Culture Urine [id number] URI NE CULTURE SEE NOTES 08/20/2015 Culture Urine [id number] Con tinued Results 08/20/2015 Urine Culture Ucult Comp lete Growth of aerobe sent to ref lab 08/18/2015 Vitamin D 25 Oh Wud2377 VITAMIN D, 25 HYDROXY 24.39 ng/mL 07/18/2015 Comp Metabolic Xec918 NA 136 mEq/L 07/17/2015 Comp Metabolic Bqv538 K 4.0 mEq/L 07/17/2015 Comp Metabolic Jee714 CL 100 mEq/L 07/17/2015 Comp Metabolic Iye000 CO2 27.0 mEq/L 07/17/2015 Comp Metabolic Jvt984 AN ION GAP 13 07/17/2015 Comp Metabolic Voc178 GL UCOSE 121 mg/dL 07/17/2015 Comp Metabolic Exi774 Cr eat 0.7 mg/dL 07/17/2015 Comp Metabolic Muw613 eG FR 96 ml/min/1.73m2 07/16 Comp Metabolic Veb266 BUN 10 mg/dL 07/17/2015 Comp Metabolic Rup948 B/ C Ratio 14.5 Ratio 07/17/2015 Comp Metabolic Sum583 CA LCIUM 8.9 mg/dL 07/17/2015 Comp Metabolic Rma055 AL K PHOS 146 U/L 07/17/2015 Comp Metabolic Iol552 T(SGOT) 20 U/L 07/17/2015 Comp Metabolic Hhk424 AL T(SGPT) 22 U/L 07/17/2015 Comp Metabolic Llx414 BI LI T 0.4 mg/dL 07/17/2015 Comp Metabolic Oqh703 AL BUMIN 4.0 g/dL 07/17/2015 Comp Metabolic Nsm836 TP RO 6.6 g/dL 07/17/2015 Comp Metabolic Utx216 GL OB 2.6 g/dL 07/17/2015 Comp Metabolic Pdu950 A/ G Ratio 1.6 Ratio 07/17/2015 Comp Metabolic Deg707 Os mo 272 mOsmo 07/17/2015 Sed Rate [...] 26.1 pg 07/17/2015 Cbc With Differential Ord2 [place]% 12.6 % 07/17/2015 Cbc With Differential Ord2 [...] 1.25 K/ul 07/17/2015 Cbc With Differential Ord2 [place] ABS# 0.9 K/ul 07/17/2015 Cbc With Differential [...] Crqnt CRP 2.9 mg/dl 07/17/2015 GFR CALC 5582423 GFR AA >60 ML/MIN 10/06/2013 GFR CALC 1462909 GFR NON -AA >60 ML/MIN 10/06/2013 CHEM 14 0770417 AST 34 U/L 10/06/2013 CHEM 14 8097179 ALT 30 IU/L 10/06/2013 CHEM 14 1449659 BUN 11 MG/DL 10/06/2013 CHEM 14 8534359 ALBUMIN 4.4 GM/DL 10/06/2013 CHEM 14 7239761 CHLORIDE 107 MMOL/L 10/06/2013 CHEM 14 2325772 BILI TOT 0.4 MG/DL 10/06/2013 CHEM 14 1606393 ALK PHOS 133 U/L 10/06/2013 CHEM 14 0722954 SODIUM 140 MMOL/L 10/06/2013 CHEM 14 7307441 CREATINI NE 0.67 MG/DL 10/06/2013 CHEM 14 7077581 CALCIUM 9.3 MG/DL 10/06/2013 CHEM 14 7945268 POTASSIUM 4.0 MMOL/L 10/06/2013 CHEM 14 1974175 PROT TOT 7.1 GM/DL 10/06/2013 CHEM 14 8077948 GLUCOSE 108 MG/DL 10/06/2013 CHEM 14 8484726 BICARB 25 MMOL/L 10/06/2013 CHEM 14 7000608 ANION GAP 8 MEQ/L 10/06/2013 VIT D TOTL 3533474 VIT D TOTL 37 NG/ML 10/06/2013 GC/CHL PRB 6508546 CHLM PROBE NEG 09/21/2013 GC/CHL PRB 6657191 GC KS OBE NEG 09/21/2013 DNA AB 1904010 DNA AB 36 IU/ML 09/17/2013 RA FACTOR 1168209 RA FAC TOR <20.0 IU/ML 09/16/2013 SM MUSC AB 2116218 SM MU SC AB <1:20 09/16/2013 CARDIO G/M 8117023 CARDI O IGG 1.7 GPLU 09/16/2013 CARDIO G/M 4275411 CARDI O IGM 4.8 MPLU 09/16/2013 ALENA SCR 1369412 ALENA SCR <1:80 09/16/2013 CRP 8455202 CRP 1.1 MG/DL 09/15/2013 ESR 9948797 ESR 22 MM/HR 09/15/2013 CBC 9481507 WBC 5.5 10e9/L 04/26/2013 CBC 7187331 RBC 4.89 10e12/L 04/26/2013 CBC 8574470 HGB 12.8 g/dL 04/26/2013 CBC 4641507 HCT DET 39.5 % 04/26/2013 CBC 0618203 MCV 80.8 fL 04/26/2013 CBC 9369476 MCH 26.2 pg 04/26/2013 CBC 8894787 MCHC 32.4 g/dL 04/26/2013 CBC 6908440 PLT 299 10e9/L 04/26/2013 CBC 1345525 MPV 10.9 fL 04/26/2013 CBC 5883580 WAN % 59.0 % 04/26/2013 CBC 3135090 LY % 29.6 % 04/26/2013 CBC 0313347 MON % 9.1 % 04/26/2013 CBC 4328443 EOS % 1.8 % 04/26/2013 CBC 1010098 BASO % 0.5 % 04/26/2013 CBC 3041335 RDW 13.9 % 04/26/2013 CBC 3004485 ABS WAN 3.25 10e9/L 04/26/2013 CBC 3689754 ABS LYMPH 1.63 10e9/L 04/26/2013 CBC 1870120 ABS MONO 0.50 10e9/L 04/26/2013 CBC 1761863 ABS EOS 0.10 10e9/L 04/26/2013 CBC 9826481 ABS BASO 0.03 10e9/L 04/26/2013 CBC 5644310 RDW-SD 39.9 fL 04/26/2013 URINALYSIS NONAUTO W/O SCOPE 18581 Specific [place] 1.020 DateTime(Free Text in [employer]) URINALYSIS NONAUTO W/O SCOPE 20457 PH 6.0 DateTime(Free Rik t in [employer]) URINALYSIS NONAUTO W/O SCOPE 73685 GLUCOSE neg DateTime(Free Rik t in [employer]) URINALYSIS NONAUTO W/O SCOPE 78704 Protein neg DateTime(Free Rik t in [employer]) URINALYSIS NONAUTO W/O SCOPE 45302 Blood neg DateTime(Free Rik t in [employer]) URINALYSIS NONAUTO W/O SCOPE 72516 Bilirubin neg DateTime(Free Rik t in [employer]) URINALYSIS NONAUTO W/O SCOPE 75656 Ketones neg DateTime(Free Rik t in [employer]) URINALYSIS NONAUTO W/O SCOPE 63567 Urobilinogen neg DateTime(Free Text in [employer]) URINALYSIS NONAUTO W/O SCOPE 22496 Nitrite neg DateTime(Free Rik t in ) URINALYSIS NONAUTO W/O SCOPE 60646 Leukocytes 1+ DateTime(Free Text in ) Review [...] No alteration of consciousness 12/07/2015 Psychiatric anxiety 3 Psychiatric depression 0 12/07/2015 Endocrine No dry [...] Procedures Procedure Codes Date IMMUNIZATION ADMIN CPT-4: 03099Rtsdosh 12/07/2015 FLU VACC 4 AMBER 3 YRS PLUS IM SNOMED CT: 48893248 CPT-4: 64597Wemdbwg 12/07/2015 URINALYSIS NONAUTO W /O SCOPE CPT-4: 44803Wgspkok 08/17/2015 CHEM 14 (COMPREHEN M ETABOLIC PANEL) CPT-4: 33255Mpxggjb 10/06/2013 VIT D TOTL (VITAMIN D 25 HYDROXY) CPT-4: 88881Biwrgip 10/06/2013 CRP (C-REACTIVE PROT EIN) CPT-4: 58612Xrfazxi 09/15/2013 ESR (RBC SED RATE AU TOMATED) CPT-4: 04450Uhlftdx 09/15/2013 ROUTINE VENIPUNCTURE CPT-4: 92043Cnczblq 09/15/2013 URINALYSIS NONAUTO W /O SCOPE CPT-4: 13036Ghiilaz 08/16/2013 C URINE RT CPT-4: 9992254Grldgeh 08/16/2013 C URINE RT (URINE CU LTURE/COLONY COUNT) CPT-4: 94154Ettutee 08/16/2013 ROUTINE VENIPUNCTURE CPT-4: 23950Bhypbjx 04/26/2013 Vital Signs Date Vital 08/05/2016 Blood Pressure 1: 134/82 Code: 8480-6 Heart Rate 1: 113 bpm Height: 5'5" SpO2: 98% 07/22/2016 Blood Pressure 1: 142/84 Code: 8480-6 BMI: 39.6 Code: 24159-9 Heart Rate 1: 103 bpm Height: 5'5" SpO2: 97% Weight: 238 lbs 03/06/2016 Blood Pressure 1: 138/86 Code: 8480-6 Heart Rate 1: 100 bpm SpO2: 96% Weight: 246 lbs 12/07/2015 Blood Pressure 1: 140/78 Code: 8480-6 BMI: 40.8 Code: 34665-3 Heart Rate 1: 97 bpm Height: 5'6" SpO2: 98% Weight: 250 lbs 11/09/2015 Blood Pressure 1: 118/84 Code: 8480-6 BMI: 40.7 Code: 84125-1 Heart Rate 1: 85 bpm Height: 5'6" SpO2: 98% Weight: 249 lbs 08/17/2015 Blood Pressure 1: 122/82 Code: 8480-6 BMI: 39.4 Code: 13417-4 Heart Rate 1: 86 bpm Height: 5'6" SpO2: 95% Weight: 241 lbs 07/24/2015 Blood Pressure 1: 118/76 Code: 8480-6 BMI: 39.9 Code: 49335-8 Heart Rate 1: 97 bpm Height: 5'6" SpO2: 96% Weight: 244 lbs 07/16/2015 Blood Pressure 1: 158/80 Code: 8480-6 Blood Pressure 1: 120/86 Code: 8480-6 Heart Rate 1: 105 bpm Height: 5'6" SpO2: 98% Weight: 06/12/2015 Blood Pressure 1: 128/82 Code: 8480-6 BMI: 39.9 Code: 57330-6 Heart Rate 1: 89 bpm Height: 5'6" SpO2: 98% Weight: 244 lbs 03/08/2015 Blood Pressure 1: 130/86 Code: 8480-6 Heart Rate 1: 98 bpm Height: 5'6" SpO2: 97% Weight: 12/29/2014 Blood Pressure 1: 138/88 Code: 8480-6 BMI: 39.2 Code: 32808-7 Heart Rate 1: 109 bpm Height: 5'6" SpO2: 97% Weight: 240 lbs 11/17/2014 Blood Pressure 1: 170/98 Code: 8480-6 BMI: 39.7 Code: 60358-0 Heart Rate 1: 92 bpm Height: 5'6" SpO2: 98% Weight: 243 lbs 05/16/2014 Blood Pressure 1: 130/82 Code: 8480-6 BMI: 39.2 Code: 03504-7 Heart Rate 1: 88 bpm Height: 5'6" Weight: 240 lbs 04/04/2014 Blood Pressure 1: 146/92 Code: 8480-6 Blood Pressure 2: 136/86 Code: 8480-6 BMI: 39.9 Code: 95598-1 Heart Rate 1: 68 bpm Height: 5'6" Weight: 244 lbs 12/01/2013 Blood Pressure 1: 142/80 Code: 8480-6 BMI: 38.4 Code: 71315-4 Heart Rate 1: 80 bpm Height: 5'6" Weight: 235 lbs 10/10/2013 Blood Pressure 1: 128/88 Code: 8480-6 BMI: 38.7 Code: 02317-6 Heart Rate 1: 88 bpm Height: 5'6" Weight: 237 lbs 09/15/2013 Blood Pressure 1: 112/74 Code: 8480-6 BMI: 39.0 Code: 85704-1 Heart Rate 1: 80 bpm Height: 5'6" Weight: 239 lbs 08/16/2013 Blood Pressure 1: 124/64 Code: 8480-6 BMI: 39.0 Code: 01708-1 Heart Rate 1: 88 bpm Height: 5'6" Weight: 239 lbs 06/06/2013 Blood Pressure 1: 120/72 Code: 8480-6 BMI: 37.9 Code: 57811-6 Heart Rate 1: 84 bpm Height: 5'6" Weight: 232 lbs 04/26/2013 Blood Pressure 1: 148/86 Code: 8480-6 BMI: 37.7 Code: 96696-0 Heart Rate 1: 84 bpm Height: 5'6" Weight: 231 lbs 04/14/2013 Blood Pressure 1: 148/92 Code: 8480-6 BMI: 38.2 Code: 62914-2 Heart Rate 1: 88 bpm Height: 5'6" [...] Encounters Encounter Performer Loca tion Codes Date ([id number]) 01730 EST. P [facility] Diagnosis: Impaired fasting glucose[ICD10: R73.01] Diagnosis: Low back pain[ICD10: M54.5] Diagnosis: Generalized anxiety disorder[ICD10: F41.1] Katy Manzanares MD, [facility] CPT-4: 67000 08/05/2016 ([id number]) 80190 EST. P [facility] Diagnosis: Essential (primary) hypertension[ICD10: I10] Diagnosis: Radiculopathy, lumbar region[ICD10: M54.16] Katy Manzanares MD, [facility] CPT-4: 65443 07/22/2016 ([id number]) Ganesh coats no charge Diagnosis: Dysuria[ICD10: R30.0] Ally Manzanares MD, [facility] CPT-4: 14945 06/12/2016 ([id number]) 89249 EST. P [facility], L[facility] Diagnosis: Type 2 diabetes mellitus without complications[ICD10: E11.9] Diagnosis: Vitamin D deficiency, unspecified[ICD10: E55.9] Diagnosis: Generalized anxiety disorder[ICD10: F41.1] Diagnosis: Essential (primary) hypertension[ICD10: I10] Diagnosis: Radiculopathy, cervical region[ICD10: M54.12] Diagnosis: Cardiac murmur, unspecified[ICD10: R01.1] Katy Manzanares MD, [facility] CPT-4: 14918 03/06/2016 ([id number]) 33041 EST. 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 P ATIENT, LEVEL IV Diagnosis: Essential (primary) hypertension[ICD10: I10] Diagnosis: Generalized anxiety disorder[ICD10: F41.1] Diagnosis: Other obesity due to excess calories[ICD10: E66.09] Katy Manzanares MD, [facility] CPT-4: 72355 11/09/2015 ([id number]) 66366 EST. P ATIENT, LEVEL III Diagnosis: Urinary tract infection, site not specified[ICD10: N39.0] Katy Manzanares MD, [facility] CPT-4: 74750 08/17/2015 ([id number]) 09026 EST. P ATIENT, LEVEL III Diagnosis: Generalized anxiety disorder[ICD10: F41.1] Diagnosis: Major depressive disorder, recurrent, moderate[ICD10: F33.1] Katy Manzanares MD, [facility] CPT-4: 63388 07/24/2015 ([id number]) 32185 EST. P ATIENT, LEVEL IV Diagnosis: Myalgia[ICD10: M79.1] Diagnosis: Low back pain[ICD10: M54.5] Diagnosis: Cervicalgia[ICD10: M54.2] Diagnosis: Essential (primary) hypertension[ICD10: I10] Diagnosis: Vitamin D deficiency, unspecified[ICD10: E55.9] Diagnosis: Generalized anxiety disorder[ICD10: F41.1] Katy Manzanares MD, [facility] CPT-4: 35960 07/16/2015 ([id number]) 60414 EST. P ATIENT, LEVEL IV Diagnosis: Cervicalgia[ICD10: M54.2] Diagnosis: Essential (primary) hypertension[ICD10: I10] Diagnosis: Low back pain[ICD10: M54.5] Diagnosis: Radiculopathy, cervical region[ICD10: M54.12] Katy Manzanares MD, [facility] CPT-4: 55359 06/12/2015 [id number] EST. PATIENT, LEVEL III Diagnosis: Sacroiliitis, not elsewhere classified[ICD10: M46.1] Diagnosis: Low back pain[ICD10: M54.5] Diagnosis: Pain in left hip[ICD10: M25.552] Diagnosis: Pain in right hip[ICD10: M25.551] Samantha Manzanares MD, [facility] CPT-4: 61758 03/08/2015 32152 EST. 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 P ATIENT, LEVEL IV Diagnosis: ESSENTIAL HYPERTENSION[ICD9: 401.9] Diagnosis: Anxiety[ICD9: 300.00] Diagnosis: Depression[ICD9: 311] Katy Manzanares MD, [facility] CPT-4: 93155 11/17/2014 ([id number]) 05248 EST. P ATIENT, LEVEL IV Diagnosis: Anxiety[ICD9: 300.00] Diagnosis: Depression[ICD9: 311] Diagnosis: DIABETES TYPE II[ICD9: 250.00] Diagnosis: Vitamin D deficiency[ICD9: 268.9] Diagnosis: ESSENTIAL HYPERTENSION[ICD9: 401.9] Diagnosis: ABNORMAL WEIGHT GAIN[ICD9: 783.1] Katy Manzanares MD, [facility] CPT- 4: 73866 05/16/2014 ([id number]) 47184 EST. P ATIENT, LEVEL IV Diagnosis: ESSENTIAL HYPERTENSION[ICD9: 401.9] Diagnosis: Anxiety[ICD9: 300.00] Diagnosis: Depression[ICD9: 311] Katy Manzanares MD, [facility] CPT-4: 37257 04/04/2014 ([id number]) [id number] EST. P ATIENT, LEVEL IV Diagnosis: Diarrhea[ICD9: 787.91] Diagnosis: Epigastric pain[ICD9: 789.06] Diagnosis: ESOPHAGEAL REFLUX[ICD9: 530.81] Diagnosis: Blood in stool[ICD9: 578.1] Katy Manzanares MD, [facility] CPT- 4: 41854 12/01/2013 ([id number]) [id number] EST. P ATIENT, LEVEL IV Diagnosis: Vitamin D deficiency[ICD9: 268.9] Diagnosis: DIABETES TYPE II[ICD9: 250.00] Diagnosis: Depression[ICD9: 311] Diagnosis: Insomnia[ICD9: 780.52] Ally Manzanares MD, [facility] CPT-4: 31118 10/10/2013 ([id number]) PREV VISIT E ST AGE 40-64 Diagnosis: Well woman exam with routine gynecological exam[ICD9: V72.31] Diagnosis: JOINT PAIN-UNSPEC[ICD9: 719.40] Diagnosis: Nasal septal ulcer[ICD9: 478.19] Diagnosis: Swelling of extremity[ICD9: 729.81] Diagnosis: Pleuritic chest pain[ICD9: 786.52] Katy Manzanares MD, [facility] CPT-4: 44892 09/15/2013 ([id number]) [id number] EST. P ATIENT, LEVEL IV Diagnosis: DM W/O COMPLICATION TYPE II, UNCONTROLLED[SNOMED: 31048016] Diagnosis: Urinary tract infection[ICD9: 599.0] Diagnosis: DEPRESSIVE DISORDER NEC[ICD9: 311] Diagnosis: Anxiety[ICD9: 300.00] Diagnosis: Insomnia[ICD9: 780.52] Diagnosis: ANEMIA[ICD9: 285.9] Katy Manzanares MD, [facility] CPT-4: 27322 08/16/2013 ([id number]) [id number] EST. P ATIENT, LEVEL III Diagnosis: DM w/o complication type II, uncontrolled[SNOMED: 76372211] Ally Manzanares MD, [facility] CPT-4: 78324 06/06/2013 ([id number]) [id number] EST. P ATIENT, LEVEL III Diagnosis: DIABETES TYPE II[SNOMED: 874761520] Ally Manzanares MD, [facility] CPT- 4: 09737 04/26/2013 ([id number]) OFFICE VISI T, NEW - LEVEL 4 Diagnosis: Elevated blood pressure[ICD9: 796.2] Diagnosis: Depression[ICD9: 311] Diagnosis: Elevated alkaline phosphatase level[ICD9: 790.5] Diagnosis: Elevated glucose[ICD9: 790.29] [facility] CPT-4: 58030 04/14/2013 Plan of Care Planned Activity Notes C odes Status Date Visit Plan: Elevated glucose-check Hgb A 1C Low back pain-will write letter on patient's behalf for insurance precertification Efojoqi-zfoypdaggl-ydks controlled-no changes 08/05/2016 Appointment: Katy Do WPtel: [facility]1 [phone] (30 min) Complex 08/05/2016 Patient Education: Patient [...] next month. 07/22/2016 Appointment: Katy Do WPtel: [facility]5 [phone] (15 min) Moderate 07/22/2016 Patient Education: Patient [...] murmur-schedule Echo 03/06/2016 Appointment: Katy Do WPtel: [facility]7 [phone] (30 min) Complex 03/06/2016 Patient Education: Patient [...] current medications. 12/07/2015 Appointment: Katy Do WPtel: [address] [place], [place] [phone] (30 min) Complex 12/07/2015 Patient Education: Patient [...] weight check. 11/09/2015 Appointment: Katy Do WPtel: [address] [place], [place] [phone] (30 min) Complex 11/09/2015 Patient Education: Patient Medication Summary Completed 11/09/2015 Patient Education: Obesity Completed 11/09/2015 Care Plan: BMI Above normal followup LOLI F-MGMT EDUC & TRAIN 1 PT Pending 11/09/2015 Appointment: Katy Do WPtel: [address] [place], [place] [phone] (30 min) Complex 11/08/2015 Appointment: Katy Do WPtel: [address] [place], [place] [phone] (15 min) Moderate 08/23/2015 Visit Plan: Urinary [...] D level 07/24/2015 Appointment: Katy Do WPtel: [address] [place], [place] [phone] (30 min) [facility] 07/24/2015 Patient Education: Patient Medication Summary [...] change in blood pressure readings at home.Neck pqjk-qxvxhxnnxsdsp-qjnxz to Dr Mckee for evaluation-patient has been [...] Appointment: Katy Do WPtel: [phone] Follow up 07/07/2014 Visit Plan: Anxiety [...] Completed 05/16/2014 [facility]ment[phone] Follow up 05/09/2014 Visit Plan: Hypertension [...] patient. 2014 [facility]ment[phone] Follow up 04/04/2014 [...] 12/01/2013 Care Plan: Referral Order SNOMED-CT : [id number] Ordered 12/01/2013 Visit Plan: Diabetes Mellitus - [...] for insomnia. 10/10/2013 Appointment: Ally Manzanares WPtel: [address] [place], [place] [phone] [place] Follow up 10/10/2013 Patient Education: Patient Medication Summary Completed 10/10/2013 Appointment: Ally Manzanares WPtel: [facility]9 [facility] Lab Draw 10/06/2013 Patient Education: Patient Medication Summary Completed 10/06/2013 Appointment: Ally Manzanares WPtel: [facility]5 [facility] [place] Follow up 10/04/2013 Visit Plan: [...] yearly or prn.Joint pain-pleuritic chest pain-swelling of lgmx-dktgdbo-thvdqra for autoimmune disease such as lupus-plan to check labs and proceed as indicated. Instructed patient we will call her with results of labs. 09/15/2013 Appointment: Katy Do WPtel: [facility]0 [phone] [place] Pap Only 09/15/2013 Patient Education: Patient [...] iron panel 08/16/2013 Appointment: Katy Do WPtel: [address] [place], [place] [phone] [place] [address] Follow up 08/16/2013 Patient Education: Patient Medication Summary Completed 08/16/2013 Care Plan: C URINE RT Pending 08/16/2013 Appointment: Katy Do WPtel: [address] [place], [place] [phone] Follow up 08/09/2013 Appointment: Ally Manzanares WPtel: [address] [place], [place] [phone] Follow up 08/08/2013 Visit Plan: Diabetes Mellitus [...] glucose control. 2013 Appointment: Ally Manzanares WPtel: [facility]5 [facility] Follow up 06/06/2013 Patient Education: Patient Medication Summary Completed 06/06/2013 Appointment: Ally Manzanares WPtel: [address] [place], [place] [phone] Follow up 05/12/2013 Visit Plan: Diabetes Mellitus - new diag donna- I have recommended for the patient to [...] glucose control. 2013 Appointment: Katy Do WPtel: [facility]0 [phone] Diabetic education 04/26/2013 Patient Education: Patient Medication Summary Completed 04/26/2013 Visit Plan: Elevated Blood Pressure - w [facility] diagnosis of hypertension - pt has been [...] and hgba1c. 04/14/2013 Appointment: Ally Manzanares WPtel: [address] [place], [place] [phone] New Patient 04/14/2013 Patient Education: Patient Medication Summary Completed 04/14/2013 Appointment: Ally Manzanares WPtel: [address] [place], [place] [phone] New Patient 04/05/2013 Referral: Dr Trujillo Referral Initiated Instructions Comment . Hypertension - unc ontrolled - the [...] prescribed for this patient. SAMPLES OF FETZIMA BRINTELLIX 10MG-TAKE 1 TAB DAILY. YOU HAVE [...] in blood pressure readings at home. Neck oaso-bwsgxtrqtnpvq-tyuia to Dr Mckee for evaluation-patient has been [...] see Dr Mckee for her neck first. Decrease fetzima to 20 mg daily over [...] not improve or if they worsen. . Urinary Tract Infe ction-discussed natural and [...] of plan. HOLD METFORMIN X 1 W [place] RESTART PANTOPRAZOLE DAILY CONTINUE CARAFATE BEFORE MEALS [...] or prn. Joint pain-pleuritic chest pain-swelling of beer-kiyvfgp-afiqoqa for autoimmune disease such as lupus-plan to check labs and proceed as indicated. Instructed patient we will call her with results of labs. DECREASE LEXAPRO TO EVERY OTHER DAY X [...] RTC in one month for weight check. . Hypertension - wel l controlled - [...] daily keep metformin at current dose. picker tender RX for vitamin D 51707 units weekly. . Diabetes Mellitus - controlled - per r juancarlos FSBS reports. I have recommended for the [...] Elevated glucose - check glucose and hgba1c. [phone] Samuels and call Sandee to picker tender a copy . Elevated glucose-check Hgb A1C Low back pain-will write letter on patient's behalf for insurance precertification Fopuuog-pzmcrehgxg-rojs controlled-no changes . Chronic Depression and anxiety - the [...] medications. Vitamin D deficiency-start vitamin D level CHECK LABS schedule ECHO . Hypertension - [...]
--- OUTSIDE RECORDS SUMMARY | 2019-03-04 02:47 | XMS REPORT | CCD ---
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[employer], [employer]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 09/15/2013 Marital status Unknown M arried 04/14/[address]: [id number] Never smoker 04/14/2013 Alcohol history Unknown occasionally [...] Date Stop Date Sta tus Fill Instructions cetirizine 10 mg tablet RxNorm: 7152646 1 Tablet(s) PO daily 07/22/2016 No Stop Date Active lisinopril 20 mg-hyd rochlorothiazide 12.5 mg tablet RxNorm: 627140 1 TABLET(S) PO DAILY 06/20/2016 12/16/2016 Active Wellbutrin XL 150 mg 24 hr tablet, extended release RxNorm: 910989 1 TABLET(S) PO DAILY 05/12/2016 08/09/2016 Inactive Victoza 3-Jean 0.6 mg /0.1 mL (18 mg/3 mL) subcutaneous pen injector RxNorm: 304460 0.6 Milligram(s) SQ daily 03/21/2016 07/21/2016 Inactive NovoFine Plus 32 gau ge x 1/6" needle RxNorm: 1 Miscellaneous daily 03/21/2016 07/21/2016 Inactive NovoFine Plus 32 gau ge x 1/6" needle RxNorm: 1 Miscellaneous daily 03/21/2016 03/20/2016 Inactive Victoza 3-Jean 0.6 mg /0.1 mL (18 mg/3 mL) subcutaneous pen injector RxNorm: 471566 0.6 Milligram(s) SQ daily 03/21/2016 03/20/2016 Inactive Vitamin D2 50,000 un it capsule RxNorm: 453903 1 Capsule(s) PO QW 03/20/2016 06/17/2016 Inactive meloxicam 15 mg tablet RxNorm: 172227 1 Tablet(s) PO daily 03/20/2016 07/17/[address] on hold until pt needs it: she is going to take (2) 7.5mg until gone lisinopril 20 mg-hyd rochlorothiazide 12.5 mg tablet RxNorm: 400220 1 TABLET(S) PO DAILY 02/19/2016 05/18/2016 Inactive gabapentin 800 mg ta blet RxNorm: 292523 1 Tablet(s) PO TID 11/09/2015 No Stop Date Active Wellbutrin XL 150 mg 24 hr tablet, extended release RxNorm: 958254 1 Tablet(s) PO daily 11/09/2015 03/07/2016 Inactive Lexapro 10 mg tablet RxNorm: 165615 1 TABLET(S) PO QPM 11/05/2015 11/08/2015 Inactive lisinopril 20 mg-hyd rochlorothiazide 12.5 mg tablet RxNorm: 493433 1 TABLET(S) PO DAILY 10/18/2015 01/15/2016 Inactive Cipro 500 mg tablet RxNorm: 201061 1 Tablet(s) PO BID 08/17/2015 08/23/2015 Inactive Lexapro 10 mg tablet RxNorm: 585436 1 Tablet(s) PO QPM 07/24/2015 10/21/2015 Inactive Vitamin D2 50,000 un it capsule RxNorm: 008792 1 Capsule(s) PO QW 07/24/2015 10/21/2015 Inactive gabapentin 300 mg ca psule RxNorm: 507971 2 Capsule(s) PO TID 07/16/2015 11/08/2015 Inactive lisinopril 20 mg-hyd rochlorothiazide 12.5 mg tablet RxNorm: 180742 1 TABLET(S) PO DAILY 04/09/2015 07/07/2015 Inactive naproxen 250 mg tablet RxNorm: 161745 1-2 Tablet(s) PO BID as needed for pain 03/08/2015 No Stop Date Active Fetzima 40 mg capsul e,extended release RxNorm: 3580307 1 Capsule(s) PO adri y 12/22/2014 12/21/2014 In active Fetzima 40 mg capsul e,extended release RxNorm: 0523087 1 Capsule(s) PO adri y 12/22/2014 06/11/2015 In active Xanax 0.5 mg tablet RxNorm: 359615 1 Tablet(s) TAKE 1 TABLET BY MOUTH TWICE DAILY NEEDED FOR ANXIETY 11/17/2014 01/15/2015 Inactive lisinopril 20 mg-hyd rochlorothiazide 12.5 mg tablet RxNorm: 594039 1 Tablet(s) PO daily 11/17/2014 03/16/2015 Inactive Fetzima 20 mg capsul e,extended release RxNorm: 8156292 1 Capsule(s) PO adri y 11/17/2014 12/22/2014 In active Xanax 0.5 mg tablet RxNorm: 061159 1 Tablet(s) TAKE 1 TABLET BY MOUTH TWICE DAILY NEEDED FOR ANXIETY 10/27/2014 11/16/2014 Inactive Xanax 0.5 mg tablet RxNorm: 188438 TAKE 1 TABLET BY MOUTH TWICE DAILY NE EDED FOR ANXIETY 08/25/2014 10/23/2014 Inactive Brintellix 10 mg tablet RxNorm: 7070620 1 Tablet(s) PO daily 07/04/2014 07/03/2014 Inactive Brintellix 10 mg tablet RxNorm: 2486902 1 Tablet(s) PO daily 07/04/2014 11/16/2014 Inactive Brintellix 10 mg tablet RxNorm: 2949853 1 Tablet(s) PO daily 06/09/2014 07/03/2014 Inactive Contrave 8 mg-90 mg tablet,extended release RxNorm: 6996846 2 Tablet(s) PO BID 06/09/2014 09/06/2014 In active 1 tab q am x 1 week, then 1 tab BID x 1 week, then 2 q am and 1 q pm x 1 week then 2 tabs BID thereafter Contrave 8 mg-90 mg tablet,extended release RxNorm: 6275707 2 Tablet(s) PO BID 06/09/2014 06/08/2014 In active 1 tab q am x 1 week, then 1 tab BID x 1 week, then 2 q am and 1 q pm x 1 week then 2 tabs BID thereafter metformin 500 mg tablet RxNorm: 931644 1/2 Tablet(s) PO BID 05/18/2014 09/14/2014 Inactive Brintellix 10 mg tablet RxNorm: 6195357 2 Tablet(s) PO daily 05/16/2014 06/08/2014 Inactive Xanax 0.5 mg tablet RxNorm: 370440 1 Tablet(s) PO BID PRN 04/06/2014 08/25/2014 Inactive Wellbutrin XL 150 mg 24 hr tablet, extended release RxNorm: 195322 1 Tablet(s) PO daily 04/04/2014 05/15/2014 Inactive [SAVINGS FOR UNINSURED PATIENTS -- BIN:0 [id number], PCN: [id number], Group: [facility], ID# [id number], Process claim through [employer], for questions: . THIS IS NOT INSURANCE.] pantoprazole 40 mg t ablet,delayed release RxNorm: 896738 1 Tablet(s) PO daily 12/01/2013 03/30/2014 In active Vitamin D3 2,000 uni t tablet RxNorm: 048415 1 Tablet(s) PO daily 10/10/2013 No Stop Date Active Vitamin D2 50,000 un it capsule RxNorm: 805200 1 Capsule(s) PO QW 10/10/2013 11/16/2014 Inactive vitamin d 50,000 units weekly x 12 weeks then 5000 units daily thereafter escitalopram 20 mg t ablet RxNorm: 134400 1 Tablet(s) PO daily 10/10/2013 04/04/2014 Inactive trazodone 100 mg tablet RxNorm: 296256 1 TABLET(S) PO QHS 09/19/2013 01/16/2014 Inactive trazodone 100 mg tablet RxNorm: 741143 1 Tablet(s) PO QHS 08/16/2013 09/14/2013 Inactive metformin 500 mg tablet RxNorm: 856095 1 Tablet(s) PO BID 08/16/2013 04/03/2014 Inactive Diflucan 150 mg tablet RxNorm: 782520 1 Tablet(s) PO daily 08/16/2013 08/22/2013 Inactive metformin 500 mg tablet RxNorm: 273633 1/2 Tablet(s) PO BID 1/2 tab in the even ing x 1 week then 1/2 tab twice daily 04/26/2013 08/15/2013 Inactive Vitamin D2 50,000 un it capsule RxNorm: 123412 1 Capsule(s) PO QW 04/21/2013 10/09/2013 Inactive vitamin d 50,000 units weekly x 12 weeks then 5000 units daily thereafter Lexapro 10 mg tablet RxNorm: 790025 1 Tablet(s) PO daily 04/14/2013 10/09/2013 Inactive tizanidine 2 mg tablet RxNorm: 256588 1 Tablet(s) PO TID No Start Date Active amitriptyline 10 mg tablet RxNorm: 896298 1 Tablet(s) PO QHS No Start Date Active diclofenac 75 mg-mis oprostol 200 mcg tablet,immediate,delayed release RxNorm: 0763097 1 Tablet(s) PO BID No Start Date Active methocarbamol 500 mg tablet RxNorm: 051035 1 Tablet(s) PO TID No Start Date Active lisinopril 20 mg-hyd rochlorothiazide 12.5 mg tablet RxNorm: 501905 1 Tablet(s) PO daily No Start Date 11/16/2014 Inactive gabapentin 300 mg ca psule RxNorm: 738742 1 Capsule(s) PO TID No Start Date 07/15/2015 Inactive cetirizine 10 mg tablet RxNorm: 0329243 1 Tablet(s) PO daily No Start Date 03/05/2016 Inactive Vitamin D2 50,000 un it capsule RxNorm: 445625 1 Capsule(s) PO QW No Start Date 04/20/2013 Inactive pantoprazole 40 mg t ablet,delayed release RxNorm: 275650 1 Tablet(s) PO daily No Start Date 10/09/2013 Inactive meloxicam 7.5 mg tablet RxNorm: 102486 1 Tablet(s) PO daily No Start Date 03/19/2016 Inactive ibuprofen 200 mg tablet RxNorm: 275752 3 Tablet(s) PO TID No Start Date 11/30/2013 Inactive Advair Diskus 250 mc g-50 mcg/dose powder for inhalation RxNorm: 7576170 2 INH daily No Start Date 07/23/2015 [...] 10/10/2013 Laboratory exam ordered as part of [facility] general medical examination ICD-9: V72.62 10/06/2013 Swelling of extremity ICD-9: 729.81 09/15/2013 JOINT PAIN-UNSPEC ICD-9: 719.40 09/15/2013 Pleuritic chest pain ICD-9: 786.52 09/15/2013 Well woman exam with routine gynecological exam ICD-9: V72.31 09/15/2013 Nasal septal ulcer ICD-9: 478.19 09/15/2013 ANEMIA ICD-9: 285.9 08/07 DM W/O COMPLICATION TYPE II, UNCONTROLLED SNOMED: 86822242 ICD-9: 250.02 08/16/2013 Urinary tract infection ICD-9: [...] Code Item Item Code Result Date %Hba1C Pge585 % HbA1c 78865-6 6.3 % 08/05/2016 %Hba1C Zok063 Gluc Ave 134 mg/dL 08/05/2016 Alena [id number] ALENA ([place]) S CREEN NONE DETECTED 017 Vitamin D 25 Oh Wns0065 VITAMIN D, 25 HYDROXY 32.26 ng/mL 03/07/2016 Ra Factor Jgz386 RA FACT OR <10 IU/ml 03/07/2016 C-Reactive Protein Qnt Crqnt CRP 2.0 mg/dl 03/06/2016 Sed Rate Ord21 ESR 32 mm/hr 03/06/2016 %Hba1C Vha184 % HbA1c 54751-4 6.3 % 03/06/2016 %Hba1C Igb725 Gluc Ave 134 mg/dL 03/06/2016 Comp Metabolic Hnw524 NA 138 mEq/L 03/06/2016 Comp Metabolic Zpw719 K 4.3 mEq/L 03/06/2016 Comp Metabolic Ltl079 CL 103 mEq/L 03/06/2016 Comp Metabolic Xjd909 CO2 23.0 mEq/L 03/06/2016 Comp Metabolic Ahy708 AN ION GAP 16 03/06/2016 Comp Metabolic Qfn058 GL UCOSE 148 mg/dL 03/06/2016 Comp Metabolic Uha262 Cr eat 0.6 mg/dL 03/06/2016 Comp Metabolic Aza108 eG FR 104 ml/min/1.73m2 02/07 Comp Metabolic Sqp286 BUN 13 mg/dL 03/06/2016 Comp Metabolic Zzq100 B/ C Ratio 20.3 Ratio 03/06/2016 Comp Metabolic Xli922 CA LCIUM 9.7 mg/dL 03/06/2016 Comp Metabolic Fmp236 AL K PHOS 146 U/L 03/06/2016 Comp Metabolic Ums795 T(SGOT) 25 U/L 03/06/2016 Comp Metabolic Uju882 AL T(SGPT) 25 U/L 03/06/2016 Comp Metabolic Blg205 BI LI T 0.3 mg/dL 03/06/2016 Comp Metabolic Twc101 AL BUMIN 4.1 g/dL 03/06/2016 Comp Metabolic Loz103 TP RO 6.9 g/dL 03/06/2016 Comp Metabolic Hnd705 GL OB 2.8 g/dL 03/06/2016 Comp Metabolic Pip825 A/ G Ratio 1.5 Ratio 03/06/2016 Comp Metabolic Bjz975 Os mo 279 mOsmo 03/06/2016 Cbc With [...] 83.0 fl 03/06/2016 Cbc With Differential Ord2 Refugio% 9.2 % 03/06/2016 Cbc With Differential Ord2 [...] 1.35 K/ul 03/06/2016 Cbc With Differential Ord2 [place]ug[place] ABS# 0.5 K/ul 03/06/2016 Cbc With Differential Ord2 Eos ABS# 0.2 K/ul 03/06/2016 Cbc With Differential Ord2 Baso ABS# 0.1 K/ul 03/06/2016 Tsh Ord6 hTSH II 3.61 uIU/mL 03/06/2016 Culture Urine [id number] URI NE CULTURE SEE NOTES 08/20/2015 Culture Urine [id number] Con tinued Results 08/20/2015 Urine Culture Ucult Comp lete Growth of aerobe sent to ref lab 08/18/2015 Vitamin D 25 Oh Vxf4885 VITAMIN D, 25 HYDROXY 24.39 ng/mL 07/18/2015 Comp Metabolic Otp815 NA 136 mEq/L 07/17/2015 Comp Metabolic Tzg304 K 4.0 mEq/L 07/17/2015 Comp Metabolic Bhc239 CL 100 mEq/L 07/17/2015 Comp Metabolic Zzk029 CO2 27.0 mEq/L 07/17/2015 Comp Metabolic Sar321 AN ION GAP 13 07/17/2015 Comp Metabolic Jog641 GL UCOSE 121 mg/dL 07/17/2015 Comp Metabolic Xom010 Cr eat 0.7 mg/dL 07/17/2015 Comp Metabolic Lyi675 eG FR 96 ml/min/1.73m2 07/16 Comp Metabolic Bqo849 BUN 10 mg/dL 07/17/2015 Comp Metabolic Uri888 B/ C Ratio 14.5 Ratio 07/17/2015 Comp Metabolic Mys597 CA LCIUM 8.9 mg/dL 07/17/2015 Comp Metabolic Thv215 AL K PHOS 146 U/L 07/17/2015 Comp Metabolic Hko619 T(SGOT) 20 U/L 07/17/2015 Comp Metabolic Tmz181 AL T(SGPT) 22 U/L 07/17/2015 Comp Metabolic Uyr129 BI LI T 0.4 mg/dL 07/17/2015 Comp Metabolic Isf960 AL BUMIN 4.0 g/dL 07/17/2015 Comp Metabolic Mpq794 TP RO 6.6 g/dL 07/17/2015 Comp Metabolic Itu309 GL OB 2.6 g/dL 07/17/2015 Comp Metabolic Iwa789 A/ G Ratio 1.6 Ratio 07/17/2015 Comp Metabolic Tdz137 Os mo 272 mOsmo 07/17/2015 Sed Rate [...] 16.9 % 07/17/2015 Cbc With Differential Ord2 Refugio% 12.6 % 07/17/2015 Cbc With Differential Ord2 MCH 26.1 pg 07/17/2015 Cbc With Differential Ord2 MCHC 31.3 pg 07/17/2015 Cbc With Differential Ord2 Eos% 0.7 % 07/17/2015 Cbc With Differential Ord2 PLT 308 K/ul 07/17/2015 Cbc With Differential Ord2 Baso% 0.5 % 07/17/2015 Cbc With Differential Ord2 RDW 16.5 % 07/17/2015 Cbc With Differential Ord2 Neut ABS# 5.11 K/ul 07/17/2015 Cbc With Differential Ord2 Lymph ABS# 1.25 K/ul 07/17/2015 Cbc With Differential Ord2 [place] ABS# 0.9 K/ul 07/17/2015 Cbc With Differential [...] Crqnt CRP 2.9 mg/dl 07/17/2015 GFR CALC 7823605 GFR AA >60 ML/MIN 10/06/2013 GFR CALC 6609085 GFR NON -AA >60 ML/MIN 10/06/2013 CHEM 14 6742724 AST 34 U/L 10/06/2013 CHEM 14 7831613 ALT 30 IU/L 10/06/2013 CHEM 14 6317021 BUN 11 MG/DL 10/06/2013 CHEM 14 8322839 ALBUMIN 4.4 GM/DL 10/06/2013 CHEM 14 6504177 CHLORIDE 107 MMOL/L 10/06/2013 CHEM 14 0331312 BILI TOT 0.4 MG/DL 10/06/2013 CHEM 14 3359775 ALK PHOS 133 U/L 10/06/2013 CHEM 14 4189681 SODIUM 140 MMOL/L 10/06/2013 CHEM 14 0522377 CREATINI NE 0.67 MG/DL 10/06/2013 CHEM 14 7647590 CALCIUM 9.3 MG/DL 10/06/2013 CHEM 14 3422569 POTASSIUM 4.0 MMOL/L 10/06/2013 CHEM 14 7435146 PROT TOT 7.1 GM/DL 10/06/2013 CHEM 14 7813419 GLUCOSE 108 MG/DL 10/06/2013 CHEM 14 4857980 BICARB 25 MMOL/L 10/06/2013 CHEM 14 4882176 ANION GAP 8 MEQ/L 10/06/2013 VIT D TOTL 5423474 VIT D TOTL 37 NG/ML 10/06/2013 GC/CHL PRB 6156825 CHLM PROBE NEG 09/21/2013 GC/CHL PRB 1130759 GC OK OBE NEG 09/21/2013 DNA AB 3979515 DNA AB 36 IU/ML 09/17/2013 RA FACTOR 8172436 RA FAC TOR <20.0 IU/ML 09/16/2013 SM MUSC AB 3703300 SM MU SC AB <1:20 09/16/2013 CARDIO G/M 4702020 CARDI O IGG 1.7 GPLU 09/16/2013 CARDIO G/M 0001237 CARDI O IGM 4.8 MPLU 09/16/2013 ALENA SCR 2704076 ALENA SCR <1:80 09/16/2013 CRP 9314857 CRP 1.1 MG/DL 09/15/2013 ESR 9341535 ESR 22 MM/HR 09/15/2013 CBC 8471463 WBC 5.5 10e9/L 04/26/2013 CBC 9281444 RBC 4.89 10e12/L 04/26/2013 CBC 6987328 HGB 12.8 g/dL 04/26/2013 CBC 9424025 HCT DET 39.5 % 04/26/2013 CBC 8527920 MCV 80.8 fL 04/26/2013 CBC 7193405 MCH 26.2 pg 04/26/2013 CBC 2469714 MCHC 32.4 g/dL 04/26/2013 CBC 3440040 PLT 299 10e9/L 04/26/2013 CBC 3828539 MPV 10.9 fL 04/26/2013 CBC 4509225 WAN % 59.0 % 04/26/2013 CBC 5177997 LY % 29.6 % 04/26/2013 CBC 6225974 MON % 9.1 % 04/26/2013 CBC 1143321 EOS % 1.8 % 04/26/2013 CBC 1092176 BASO % 0.5 % 04/26/2013 CBC 2377611 RDW 13.9 % 04/26/2013 CBC 6631822 ABS WAN 3.25 10e9/L 04/26/2013 CBC 0538735 ABS LYMPH 1.63 10e9/L 04/26/2013 CBC 5173303 ABS MONO 0.50 10e9/L 04/26/2013 CBC 5041421 ABS EOS 0.10 10e9/L 04/26/2013 CBC 9638688 ABS BASO 0.03 10e9/L 04/26/2013 CBC 5504446 RDW-SD 39.9 fL 04/26/2013 URINALYSIS NONAUTO W/O SCOPE 60527 Specific [place] 1.020 DateTime(Free Text in Aprima) URINALYSIS NONAUTO W/O SCOPE 99905 PH 6.0 DateTime(Free Rik t in [employer]) URINALYSIS NONAUTO W/O SCOPE 42633 GLUCOSE neg DateTime(Free Rik t in [employer]) URINALYSIS NONAUTO W/O SCOPE 34663 Protein neg DateTime(Free Rik t in Aprima) URINALYSIS NONAUTO W/O SCOPE 73174 Blood neg DateTime(Free Rik t in [employer]) URINALYSIS NONAUTO W/O SCOPE 23733 Bilirubin neg DateTime(Free Rik t in [employer]ima) URINALYSIS NONAUTO W/O SCOPE 34931 Ketones neg DateTime(Free Rik t in [employer]) URINALYSIS NONAUTO W/O SCOPE 63915 Urobilinogen neg DateTime(Free Text in [employer]) URINALYSIS NONAUTO W/O SCOPE 54169 Nitrite neg DateTime(Free Rik t in [employer]) URINALYSIS NONAUTO W/O SCOPE 28598 Leukocytes 1+ DateTime(Free Text in Aprima) Review [...] Procedures Procedure Codes Date IMMUNIZATION ADMIN CPT-4: 58716Ydjiues 12/07/2015 FLU VACC 4 AMBER 3 YRS PLUS IM SNOMED CT: 06104937 CPT-4: 99452Avddedg 12/07/2015 URINALYSIS NONAUTO W /O SCOPE CPT-4: 73475Lfbuhpj 08/17/2015 CHEM 14 (COMPREHEN M ETABOLIC PANEL) CPT-4: 89707Nvcqnzw 10/06/2013 VIT D TOTL (VITAMIN D 25 HYDROXY) CPT-4: 30051Kwxmdmh 10/06/2013 CRP (C-REACTIVE PROT EIN) CPT-4: 15788Ditfsza 09/15/2013 ESR (RBC SED RATE AU TOMATED) CPT-4: 15241Ixrounj 09/15/2013 ROUTINE VENIPUNCTURE CPT-4: 28128Vbmyyiz 09/15/2013 URINALYSIS NONAUTO W /O SCOPE CPT-4: 31847Kshdwzn 08/16/2013 C URINE RT CPT-4: 0292814Jetrmtc 08/16/2013 C URINE RT (URINE CU LTURE/COLONY COUNT) CPT-4: 08851Jnlpeis 08/16/2013 ROUTINE VENIPUNCTURE CPT-4: 14019Ilegpqm 04/26/2013 Vital Signs Date Vital 08/05/2016 Blood Pressure 1: 134/82 Code: 8480-6 Heart Rate 1: 113 bpm Height: 5'5" SpO2: 98% 07/22/2016 Blood Pressure 1: 142/84 Code: 8480-6 BMI: 39.6 Code: 92973-6 Heart Rate 1: 103 bpm Height: 5'5" SpO2: 97% Weight: 238 lbs 03/06/2016 Blood Pressure 1: 138/86 Code: 8480-6 Heart Rate 1: 100 bpm SpO2: 96% Weight: 246 lbs 12/07/2015 Blood Pressure 1: 140/78 Code: 8480-6 BMI: 40.8 Code: 77535-9 Heart Rate 1: 97 bpm Height: 5'6" SpO2: 98% Weight: 250 lbs 11/09/2015 Blood Pressure 1: 118/84 Code: 8480-6 BMI: 40.7 Code: 82709-0 Heart Rate 1: 85 bpm Height: 5'6" SpO2: 98% Weight: 249 lbs 08/17/2015 Blood Pressure 1: 122/82 Code: 8480-6 BMI: 39.4 Code: 77930-5 Heart Rate 1: 86 bpm Height: 5'6" SpO2: 95% Weight: 241 lbs 07/24/2015 Blood Pressure 1: 118/76 Code: 8480-6 BMI: 39.9 Code: 03908-5 Heart Rate 1: 97 bpm Height: 5'6" SpO2: 96% Weight: 244 lbs 07/16/2015 Blood Pressure 1: 158/80 Code: 8480-6 Blood Pressure 1: 120/86 Code: 8480-6 Heart Rate 1: 105 bpm Height: 5'6" SpO2: 98% Weight: 06/12/2015 Blood Pressure 1: 128/82 Code: 8480-6 BMI: 39.9 Code: 03251-5 Heart Rate 1: 89 bpm Height: 5'6" SpO2: 98% Weight: 244 lbs 03/08/2015 Blood Pressure 1: 130/86 Code: 8480-6 Heart Rate 1: 98 bpm Height: 5'6" SpO2: 97% Weight: 12/29/2014 Blood Pressure 1: 138/88 Code: 8480-6 BMI: 39.2 Code: 01823-7 Heart Rate 1: 109 bpm Height: 5'6" SpO2: 97% Weight: 240 lbs 11/17/2014 Blood Pressure 1: 170/98 Code: 8480-6 BMI: 39.7 Code: 40778-5 Heart Rate 1: 92 bpm Height: 5'6" SpO2: 98% Weight: 243 lbs 05/16/2014 Blood Pressure 1: 130/82 Code: 8480-6 BMI: 39.2 Code: 02800-0 Heart Rate 1: 88 bpm Height: 5'6" Weight: 240 lbs 04/04/2014 Blood Pressure 1: 146/92 Code: 8480-6 Blood Pressure 2: 136/86 Code: 8480-6 BMI: 39.9 Code: 85596-8 Heart Rate 1: 68 bpm Height: 5'6" Weight: 244 lbs 12/01/2013 Blood Pressure 1: 142/80 Code: 8480-6 BMI: 38.4 Code: 45270-2 Heart Rate 1: 80 bpm Height: 5'6" Weight: 235 lbs 10/10/2013 Blood Pressure 1: 128/88 Code: 8480-6 BMI: 38.7 Code: 57655-5 Heart Rate 1: 88 bpm Height: 5'6" Weight: 237 lbs 09/15/2013 Blood Pressure 1: 112/74 Code: 8480-6 BMI: 39.0 Code: 87903-9 Heart Rate 1: 80 bpm Height: 5'6" Weight: 239 lbs 08/16/2013 Blood Pressure 1: 124/64 Code: 8480-6 BMI: 39.0 Code: 92329-9 Heart Rate 1: 88 bpm Height: 5'6" Weight: 239 lbs 06/06/2013 Blood Pressure 1: 120/72 Code: 8480-6 BMI: 37.9 Code: 96792-6 Heart Rate 1: 84 bpm Height: 5'6" Weight: 232 lbs 04/26/2013 Blood Pressure 1: 148/86 Code: 8480-6 BMI: 37.7 Code: 63458-6 Heart Rate 1: 84 bpm Height: 5'6" Weight: 231 lbs 04/14/2013 Blood Pressure 1: 148/92 Code: 8480-6 BMI: 38.2 Code: 53684-7 Heart Rate 1: 88 bpm Height: 5'6" [...] Encounters Encounter Performer Loca tion Codes Date ([id number]) 71508 EST. P ATIENT, LEVEL III Diagnosis: Impaired fasting glucose[ICD10: R73.01] Diagnosis: Low back pain[ICD10: M54.5] Diagnosis: Generalized anxiety disorder[ICD10: F41.1] Katy Manzanares MD, [facility] CPT-4: 84576 08/05/2016 ([id number]) 23160 EST. P ATIENT, LEVEL III Diagnosis: Essential (primary) hypertension[ICD10: I10] Diagnosis: Radiculopathy, lumbar region[ICD10: M54.16] Katy Manzanares MD, [facility] CPT-4: 89362 07/22/2016 ([id number]) Ganesh coats no charge Diagnosis: Dysuria[ICD10: R30.0] Ally Manzanares MD, [facility] CPT-4: 75391 06/12/2016 ([id number]) 23155 EST. P ATIENT, LEVEL IV Diagnosis: Type 2 diabetes mellitus without complications[ICD10: E11.9] Diagnosis: Vitamin D deficiency, unspecified[ICD10: E55.9] Diagnosis: Generalized anxiety disorder[ICD10: F41.1] Diagnosis: Essential (primary) hypertension[ICD10: I10] Diagnosis: Radiculopathy, cervical region[ICD10: M54.12] Diagnosis: Cardiac murmur, unspecified[ICD10: R01.1] Katy Manzanares MD, [facility] CPT-4: 73803 03/06/2016 ([id number]) 86992 EST. 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 P ATIENT, LEVEL IV Diagnosis: Essential (primary) hypertension[ICD10: I10] Diagnosis: Generalized anxiety disorder[ICD10: F41.1] Diagnosis: Other obesity due to excess calories[ICD10: E66.09] Katy Manzanares MD, [facility] CPT-4: 84849 11/09/2015 ([id number]) 07558 EST. P ATIENT, LEVEL III Diagnosis: Urinary tract infection, site not specified[ICD10: N39.0] Katy Manzanares MD, [facility] CPT-4: 01282 08/17/2015 ([id number]) 23510 EST. P ATIENT, LEVEL III Diagnosis: Generalized anxiety disorder[ICD10: F41.1] Diagnosis: Major depressive disorder, recurrent, moderate[ICD10: F33.1] Katy Manzanares MD, [facility] CPT-4: 56648 07/24/2015 ([id number]) 71290 EST. P ATIENT, LEVEL IV Diagnosis: Myalgia[ICD10: M79.1] Diagnosis: Low back pain[ICD10: M54.5] Diagnosis: Cervicalgia[ICD10: M54.2] Diagnosis: Essential (primary) hypertension[ICD10: I10] Diagnosis: Vitamin D deficiency, unspecified[ICD10: E55.9] Diagnosis: Generalized anxiety disorder[ICD10: F41.1] Katy Manzanares MD, [facility] CPT-4: 77412 07/16/2015 ([id number]) 79283 EST. P ATIENT, LEVEL IV Diagnosis: Cervicalgia[ICD10: M54.2] Diagnosis: Essential (primary) hypertension[ICD10: I10] Diagnosis: Low back pain[ICD10: M54.5] Diagnosis: Radiculopathy, cervical region[ICD10: M54.12] Katy Manzanares MD, [facility] CPT-4: 75567 06/12/2015 [id number] EST. PATIENT, LEVEL III Diagnosis: Sacroiliitis, not elsewhere classified[ICD10: M46.1] Diagnosis: Low back pain[ICD10: M54.5] Diagnosis: Pain in left hip[ICD10: M25.552] Diagnosis: Pain in right hip[ICD10: M25.551] Samantha Manzanares MD, [facility] CPT-4: 49525 03/08/2015 82846 EST. 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 P ATIENT, LEVEL IV Diagnosis: ESSENTIAL HYPERTENSION[ICD9: 401.9] Diagnosis: Anxiety[ICD9: 300.00] Diagnosis: Depression[ICD9: 311] Katy Manzanares MD, [facility] CPT-4: 42705 11/17/2014 ([id number]) 64786 EST. P ATIENT, LEVEL IV Diagnosis: Anxiety[ICD9: 300.00] Diagnosis: Depression[ICD9: 311] Diagnosis: DIABETES TYPE II[ICD9: 250.00] Diagnosis: Vitamin D deficiency[ICD9: 268.9] Diagnosis: ESSENTIAL HYPERTENSION[ICD9: 401.9] Diagnosis: ABNORMAL WEIGHT GAIN[ICD9: 783.1] Katy Manzanares MD, [facility] CPT- 4: 28916 05/16/2014 ([id number]) [id number] EST. P ATIENT, LEVEL IV Diagnosis: ESSENTIAL HYPERTENSION[ICD9: 401.9] Diagnosis: Anxiety[ICD9: 300.00] Diagnosis: Depression[ICD9: 311] Katy Manzanares MD, [facility] CPT-4: 70690 04/04/2014 ([id number]) 96336 EST. P ATIENT, LEVEL IV Diagnosis: Diarrhea[ICD9: 787.91] Diagnosis: Epigastric pain[ICD9: 789.06] Diagnosis: ESOPHAGEAL REFLUX[ICD9: 530.81] Diagnosis: Blood in stool[ICD9: 578.1] Katy Manzanares MD, [facility] CPT- 4: 57048 12/01/2013 ([id number]) 43901 EST. P ATIENT, LEVEL IV Diagnosis: Vitamin D deficiency[ICD9: 268.9] Diagnosis: DIABETES TYPE II[ICD9: 250.00] Diagnosis: Depression[ICD9: 311] Diagnosis: Insomnia[ICD9: 780.52] Ally Manzanares MD, [facility] CPT-4: 83681 10/10/2013 ([id number]) PREV VISIT E ST AGE 40-64 Diagnosis: Well woman exam with routine gynecological exam[ICD9: V72.31] Diagnosis: JOINT PAIN-UNSPEC[ICD9: 719.40] Diagnosis: Nasal septal ulcer[ICD9: 478.19] Diagnosis: Swelling of extremity[ICD9: 729.81] Diagnosis: Pleuritic chest pain[ICD9: 786.52] Katy Manzanares MD, [facility] CPT-4: 26566 09/15/2013 ([id number]) 14881 EST. P ATIENT, LEVEL IV Diagnosis: DM W/O COMPLICATION TYPE II, UNCONTROLLED[SNOMED: 64622626] Diagnosis: Urinary tract infection[ICD9: 599.0] Diagnosis: DEPRESSIVE DISORDER NEC[ICD9: 311] Diagnosis: Anxiety[ICD9: 300.00] Diagnosis: Insomnia[ICD9: 780.52] Diagnosis: ANEMIA[ICD9: 285.9] Katy Manzanares MD, [facility] CPT-4: 56937 08/16/2013 ([id number]) 99407 EST. P ATIENT, LEVEL III Diagnosis: DM w/o complication type II, uncontrolled[SNOMED: 24027469] [facility] CPT-4: 26170 06/06/2013 ([id number]) 35103 EST. P ATIENT, LEVEL III Diagnosis: DIABETES TYPE II[SNOMED: 805184308] Ally Manzanares MD, [facility] CPT- 4: 43416 04/26/2013 ([id number]) OFFICE VISI T, NEW - LEVEL 4 Diagnosis: Elevated blood pressure[ICD9: 796.2] Diagnosis: Depression[ICD9: 311] Diagnosis: Elevated alkaline phosphatase level[ICD9: 790.5] Diagnosis: Elevated glucose[ICD9: 790.29] [facility] CPT-4: 27808 04/14/2013 Plan of Care Planned Activity Notes C odes Status Date Visit Plan: Elevated glucose-check Hgb A 1C Low back pain-will write letter on patient's behalf for insurance precertification Vvlpghb-xcqvuvvpze-ijbh controlled-no changes 08/05/2016 Appointment: Katy Do WPtel: [phone] (30 min) Complex 08/05/2016 Patient Education: Patient [...] next month. 07/22/2016 Appointment: Katy Do WPtel: [phone] (15 min) Moderate 07/22/2016 Patient Education: [...] Echo 03/06/2016 Appointment: Kat[facility] Do WPtel[phone] [phone] (30 min) Complex 03/06/2016 Patient Education: [...] current medications. 12/07/2015 Appointment: Katy Do WPtel: [address] [place], [place] [phone] [place] [address] (30 min) Complex 12/07/2015 Patient Education: Patient [...] weight check. 11/09/2015 Appointment: Katy Do WPtel: [address] [place], [place] [phone] [place] [address] (30 min) Complex 11/09/2015 Patient Education: Patient Medication Summary Completed 11/09/2015 Patient Education: Obesity Completed 11/09/2015 Care Plan: BMI Above normal followup LOLI F-MGMT EDUC & TRAIN 1 PT Pending 11/09/2015 Appointment: Katy Do WPtel: [address] [place], [place] [phone] (30 min) Complex 11/08/2015 Appointment: Katy Do WPtel: [address] [place], [place] [phone] (15 min) Moderate 08/23/2015 Visit Plan: Urinary [...] D level 07/24/2015 Appointment: Katy Do WPtel: [address] [place], [place] [phone] (30 min) Complex 07/24/2015 Patient Education: Patient [...] change in blood pressure readings at home.Neck rfcg-cswbkvkymggxb-iqvdt to Dr Mckee for evaluation-patient has been [...] neck pain-patient will consider-wants to see Dr Mkcee for her neck first. 06/12/2015 Appointment: (30 [...] min) Moderate 09/04/2014 Appointment: Katy Do WPtel: [facility] [place] [phone] Follow up 07/07/2014 Visit Plan: Anxiety and [...] Hypertension Completed 05/16/2014 Appointment: Katy Do WPtel: [phone] Follow up 05/09/2014 Visit Plan: Hypertension - [...] this patient. 2014 Appointment: Katy Do WPtel: [phone] Follow up 04/04/2014 Patient Education: Patient [...] 12/01/2013 Care Plan: Referral Order SNOMED-CT : [id number] Ordered 12/01/2013 Visit Plan: Diabetes Mellitus - [...] for insomnia. 10/10/2013 Appointment: Ally Manzanares WPtel: [facility] [place] Follow up 10/10/2013 Patient Education: Patient Medication Summary Completed 10/10/2013 Appointment: Ally Manzanares WPtel: [facility] [place] Lab Draw 10/06/2013 Patient Education: Patient Medication Summary Completed 10/06/2013 Appointment: Ally Manzanares WPtel: [facility] [place] Follow up 10/04/2013 Visit Plan: Well Adult Female - exam co mpleted. Pap and breast exam completed. Pt will be called with results of her testing. She was advised to continue with yearly annual exams. Safe sex practices discussed during office visit today. Call if any abnormal gynecologic issues during the next year, otherwise, RTC yearly or prn.Joint pain-pleuritic chest pain-swelling of gaml-qandted-taghyrc for autoimmune disease such as lupus-plan to check labs and proceed as indicated. Instructed patient we will call her with results of labs. 09/15/2013 Appointment: Katy Do WPtel: [phone] [place] Pap Only 09/15/2013 Patient Education: [...] iron panel 08/16/2013 Appointment: Katy Do WPtel: [address] [place], [place] [phone] [place] [address] Follow up 08/16/2013 Patient Education: Patient Medication Summary Completed 08/16/2013 Care Plan: C URINE RT Pending 08/16/2013 Appointment: Katy Do WPtel: [address] [place], [place] [phone] [place] [address] Follow up 08/09/2013 Appointment: Ally Manzanares WPtel: [address] [place], [place] [phone] Follow up 08/08/2013 Visit Plan: Diabetes Mellitus [...] glucose control. 2013 Appointment: Ally Manzanares WPtel: [facility] Follow up 06/06/2013 Patient Education: Patient Medication Summary Completed 06/06/2013 Appointment: Ally Manzanares WPtel: [facility] Follow up 05/12/2013 Visit Plan: Diabetes Mellitus [...] glucose control. 2013 Appointment: Kat[facility] Do [facility]Ptel[phone] Diabetic education 04/26/2013 Patient Education: Patient Medication Summary Completed 04/26/2013 Visit Plan: Elevated Blood Pressure - [facility] diagnosis [facility] hypertension - pt has [...] and hgba1c. 04/14/2013 Appointment: Ally Manzanares WPtel: [facility] New Patient 04/14/2013 Patient Education: Patient Medication Summary Completed 04/14/2013 Appointment: Ally Manzanares WPtel: [facility] New Patient 04/05/2013 Referral: Dr Trujillo Referral Initiated Instructions Comment . Hypertension - wel l controlled - continue with current medications, continue with no added salt diet. Pt has been encouraged to exercise daily. The pt has been advised to call the office if there are any acute concerns about change in blood pressure readings at home. Myalgias-check labs Anxiety-not well controlled-refer to [facility] for counseling Vitamin D deficiency-check labs INCREASE METFORMIN T O A FULL TAB [...] WEAN OFF LEXAPRO. Anemia-check iron panel . Diabetes Mellitus - new diagnosis- I [...] or prn. Joint pain-pleuritic chest pain-swelling of jqae-toqoyiq-ncrktkd for autoimmune disease such as lupus-plan to [...] deficiency-joint pains-check labs Heart murmur-schedule Echo . Elevated Blood Pr essure - without [...] in blood pressure readings at home. Neck wyat-koogleulgmqfp-gcwvp to Dr Mckee for evaluation-patient has been [...] see Dr Mckee for her neck first. [phone] Samuels and call Sandee to pickle processor a copy . Elevated glucose-check Hgb A1C Low back pain-will write letter on patient's behalf for insurance precertification Qgkdcsq-sjwbohzspr-oaha controlled-no changes Decrease fetzima to 20 mg [...] allow for greater blood glucose control. . Pt is currently we aring a [...] of plan. HOLD METFORMIN X 1 W [employer] [place] RESTART PANTOPRAZOLE DAILY CONTINUE CARAFATE BEFORE MEALS [...] studies if diarrhea does not resolve . Hypertension - wel l controlled - continue with current medications, continue with no added salt diet. Pt has been encouraged to exercise daily. The pt has been advised to call the office if there are any acute concerns about change in blood pressure readings at home. Lumbar radiculopathy-Dr Samuels to do surgery next month. . Hypertension - wel l controlled - [...] pills daily keep metformin at current dose. pickle processor RX for vitamin D 74554 units weekly. . Diabetes Mellitus - controlled [...] keep trazodone for PRN use for insomnia. BRINTELLIX 10MG-TAKE 1 TAB DAILY. YOU HAVE [...]
--- OUTSIDE RECORDS SUMMARY | 2019-03-04 02:48 | XMS REPORT | CCD ---
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 09/15/2013 Marital status Unknown M arried 04/14/[address]: 764972059 Never smoker 04/14/2013 Alcohol history Unknown occasionally [...] Fill Instructions cetirizine 10 mg tablet RxNorm: 9293920 1 Tablet(s) PO daily 07/22/2016 No Stop Date Active lisinopril 20 mg-hyd rochlorothiazide 12.5 mg tablet RxNorm: 807335 1 TABLET(S) PO DAILY 06/20/2016 12/16/2016 Active Wellbutrin XL 150 mg 24 hr tablet, extended release RxNorm: 258363 1 TABLET(S) PO DAILY 05/12/2016 08/09/2016 Active Victoza 3-Jean 0.6 mg /0.1 mL (18 mg/3 mL) subcutaneous pen injector RxNorm: 314238 0.6 Milligram(s) SQ daily 03/21/2016 07/21/2016 Inactive NovoFine Plus 32 gau ge x 1/6" needle RxNorm: 1 Miscellaneous daily 03/21/2016 07/21/2016 Inactive NovoFine Plus 32 gau ge x 1/6" needle RxNorm: 1 Miscellaneous daily 03/21/2016 03/20/2016 Inactive Victoza 3-Jean 0.6 mg /0.1 mL (18 mg/3 mL) subcutaneous pen injector RxNorm: 744683 0.6 Milligram(s) SQ daily 03/21/2016 03/20/2016 Inactive Vitamin D2 50,000 un it capsule RxNorm: 320846 1 Capsule(s) PO QW 03/20/2016 06/17/2016 Inactive meloxicam 15 mg tablet RxNorm: 266439 1 Tablet(s) PO daily 03/20/2016 07/17/[address] on hold until pt needs it: she is going to take (2) 7.5mg until gone lisinopril 20 mg-hyd rochlorothiazide 12.5 mg tablet RxNorm: 659501 1 TABLET(S) PO DAILY 02/19/2016 05/18/2016 Inactive gabapentin 800 mg ta blet RxNorm: 177988 1 Tablet(s) PO TID 11/09/2015 No Stop Date Active Wellbutrin XL 150 mg 24 hr tablet, extended release RxNorm: 948631 1 Tablet(s) PO daily 11/09/2015 03/07/2016 Inactive Lexapro 10 mg tablet RxNorm: 005444 1 TABLET(S) PO QPM 11/05/2015 11/08/2015 Inactive lisinopril 20 mg-hyd rochlorothiazide 12.5 mg tablet RxNorm: 278542 1 TABLET(S) PO DAILY 10/18/2015 01/15/2016 Inactive Cipro 500 mg tablet RxNorm: 583044 1 Tablet(s) PO BID 08/17/2015 08/23/2015 Inactive Lexapro 10 mg tablet RxNorm: 315504 1 Tablet(s) PO QPM 07/24/2015 10/21/2015 Inactive Vitamin D2 50,000 un it capsule RxNorm: 545349 1 Capsule(s) PO QW 07/24/2015 10/21/2015 Inactive gabapentin 300 mg ca psule RxNorm: 781449 2 Capsule(s) PO TID 07/16/2015 11/08/2015 Inactive lisinopril 20 mg-hyd rochlorothiazide 12.5 mg tablet RxNorm: 837559 1 TABLET(S) PO DAILY 04/09/2015 07/07/2015 Inactive naproxen 250 mg tablet RxNorm: 321372 1-2 Tablet(s) PO BID as needed for pain 03/08/2015 No Stop Date Active Fetzima 40 mg capsul e,extended release RxNorm: 7595463 1 Capsule(s) PO adri y 12/22/2014 12/21/2014 In active Fetzima 40 mg capsul e,extended release RxNorm: 6523728 1 Capsule(s) PO adri y 12/22/2014 06/11/2015 In active Xanax 0.5 mg tablet RxNorm: 630218 1 Tablet(s) TAKE 1 TABLET BY MOUTH TWICE DAILY NEEDED FOR ANXIETY 11/17/2014 01/15/2015 Inactive lisinopril 20 mg-hyd rochlorothiazide 12.5 mg tablet RxNorm: 452080 1 Tablet(s) PO daily 11/17/2014 03/16/2015 Inactive Fetzima 20 mg capsul e,extended release RxNorm: 9201023 1 Capsule(s) PO adri y 11/17/2014 12/22/2014 In active Xanax 0.5 mg tablet RxNorm: 329448 1 Tablet(s) TAKE 1 TABLET BY MOUTH TWICE DAILY NEEDED FOR ANXIETY 10/27/2014 11/16/2014 Inactive Xanax 0.5 mg tablet RxNorm: 130284 TAKE 1 TABLET BY MOUTH TWICE DAILY NE EDED FOR ANXIETY 08/25/2014 10/23/2014 Inactive Brintellix 10 mg tablet RxNorm: 7639607 1 Tablet(s) PO daily 07/04/2014 07/03/2014 Inactive Brintellix 10 mg tablet RxNorm: 5604523 1 Tablet(s) PO daily 07/04/2014 11/16/2014 Inactive Brintellix 10 mg tablet RxNorm: 2759369 1 Tablet(s) PO daily 06/09/2014 07/03/2014 Inactive Contrave 8 mg-90 mg tablet,extended release RxNorm: 4169511 2 Tablet(s) PO BID 06/09/2014 09/06/2014 In active 1 tab q am x 1 week, then 1 tab BID x 1 week, then 2 q am and 1 q pm x 1 week then 2 tabs BID thereafter Contrave 8 mg-90 mg tablet,extended release RxNorm: 8664421 2 Tablet(s) PO BID 06/09/2014 06/08/2014 In active 1 tab q am x 1 week, then 1 tab BID x 1 week, then 2 q am and 1 q pm x 1 week then 2 tabs BID thereafter metformin 500 mg tablet RxNorm: 314556 1/2 Tablet(s) PO BID 05/18/2014 09/14/2014 Inactive Brintellix 10 mg tablet RxNorm: 6096903 2 Tablet(s) PO daily 05/16/2014 06/08/2014 Inactive Xanax 0.5 mg tablet RxNorm: 153110 1 Tablet(s) PO BID PRN 04/06/2014 08/25/2014 Inactive Wellbutrin XL 150 mg 24 hr tablet, extended release RxNorm: 952765 1 Tablet(s) PO daily 04/04/2014 05/15/2014 Inactive [SAVINGS FOR UNINSURED PATIENTS -- BIN:0 [id number], PCN: [id number], Group: [facility], ID# [id number], Process claim through [employer], for questions: . THIS IS NOT INSURANCE.] pantoprazole 40 mg t ablet,delayed release RxNorm: 679475 1 Tablet(s) PO daily 12/01/2013 03/30/2014 In active Vitamin D3 2,000 uni t tablet RxNorm: 958194 1 Tablet(s) PO daily 10/10/2013 No Stop Date Active Vitamin D2 50,000 un it capsule RxNorm: 848096 1 Capsule(s) PO QW 10/10/2013 11/16/2014 Inactive vitamin d 50,000 units weekly x 12 weeks then 5000 units daily thereafter escitalopram 20 mg t ablet RxNorm: 755444 1 Tablet(s) PO daily 10/10/2013 04/04/2014 Inactive trazodone 100 mg tablet RxNorm: 280438 1 TABLET(S) PO QHS 09/19/2013 01/16/2014 Inactive trazodone 100 mg tablet RxNorm: 373316 1 Tablet(s) PO QHS 08/16/2013 09/14/2013 Inactive metformin 500 mg tablet RxNorm: 269112 1 Tablet(s) PO BID 08/16/2013 04/03/2014 Inactive Diflucan 150 mg tablet RxNorm: 532301 1 Tablet(s) PO daily 08/16/2013 08/22/2013 Inactive metformin 500 mg tablet RxNorm: 396196 1/2 Tablet(s) PO BID 1/2 tab in the even ing x 1 week then 1/2 tab twice daily 04/26/2013 08/15/2013 Inactive Vitamin D2 50,000 un it capsule RxNorm: 801763 1 Capsule(s) PO QW 04/21/2013 10/09/2013 Inactive vitamin d 50,000 units weekly x 12 weeks then 5000 units daily thereafter Lexapro 10 mg tablet RxNorm: 834498 1 Tablet(s) PO daily 04/14/2013 10/09/2013 Inactive tizanidine 2 mg tablet RxNorm: 057028 1 Tablet(s) PO TID No Start Date Active amitriptyline 10 mg tablet RxNorm: 895048 1 Tablet(s) PO QHS No Start Date Active diclofenac 75 mg-mis oprostol 200 mcg tablet,immediate,delayed release RxNorm: 0508636 1 Tablet(s) PO BID No Start Date Active methocarbamol 500 mg tablet RxNorm: 255388 1 Tablet(s) PO TID No Start Date Active lisinopril 20 mg-hyd rochlorothiazide 12.5 mg tablet RxNorm: 985221 1 Tablet(s) PO daily No Start Date 11/16/2014 Inactive gabapentin 300 mg ca psule RxNorm: 866663 1 Capsule(s) PO TID No Start Date 07/15/2015 Inactive cetirizine 10 mg tablet RxNorm: 2293513 1 Tablet(s) PO daily No Start Date 03/05/2016 Inactive Vitamin D2 50,000 un it capsule RxNorm: 165367 1 Capsule(s) PO QW No Start Date 04/20/2013 Inactive pantoprazole 40 mg t ablet,delayed release RxNorm: 507879 1 Tablet(s) PO daily No Start Date 10/09/2013 Inactive meloxicam 7.5 mg tablet RxNorm: 445766 1 Tablet(s) PO daily No Start Date 03/19/2016 Inactive ibuprofen 200 mg tablet RxNorm: 223899 3 Tablet(s) PO TID No Start Date 11/30/2013 Inactive Advair Diskus 250 mc g-50 mcg/dose powder for inhalation RxNorm: 3428919 2 INH daily No Start Date 07/23/2015 [...] 10/10/2013 Laboratory exam ordered as part of [facility] general medical examination ICD-9: V72.62 10/06/2013 Swelling of extremity ICD-9: 729.81 09/15/2013 JOINT PAIN-UNSPEC ICD-9: 719.40 09/15/2013 Pleuritic chest pain ICD-9: 786.52 09/15/2013 Well woman exam with routine gynecological exam ICD-9: V72.31 09/15/2013 Nasal septal ulcer ICD-9: 478.19 09/15/2013 ANEMIA ICD-9: 285.9 08/07 DM W/O COMPLICATION TYPE II, UNCONTROLLED SNOMED: 63926080 ICD-9: 250.02 08/16/2013 Urinary tract infection ICD-9: [...] Code Item Item Code Result Date %Hba1C Kch612 % HbA1c 05249-4 6.3 % 08/05/2016 %Hba1C Dqx203 Gluc Ave 134 mg/dL 08/05/2016 Alena [id number] ALENA ([place]) S CREEN NONE DETECTED 017 Vitamin D 25 Oh Dbq4331 VITAMIN D, 25 HYDROXY 32.26 ng/mL 03/07/2016 Ra Factor Num977 RA FACT OR <10 IU/ml 03/07/2016 C-Reactive Protein Qnt Crqnt CRP 2.0 mg/dl 03/06/2016 Sed Rate Ord21 ESR 32 mm/hr 03/06/2016 %Hba1C Kbc144 % HbA1c 61355-3 6.3 % 03/06/2016 %Hba1C Mdb575 Gluc Ave 134 mg/dL 03/06/2016 Comp Metabolic Euo650 NA 138 mEq/L 03/06/2016 Comp Metabolic Ime851 K 4.3 mEq/L 03/06/2016 Comp Metabolic Sha240 CL 103 mEq/L 03/06/2016 Comp Metabolic Oqv781 CO2 23.0 mEq/L 03/06/2016 Comp Metabolic Snk178 AN ION GAP 16 03/06/2016 Comp Metabolic Sgu711 GL UCOSE 148 mg/dL 03/06/2016 Comp Metabolic Efy329 Cr eat 0.6 mg/dL 03/06/2016 Comp Metabolic Vng887 eG FR 104 ml/min/1.73m2 02/07 Comp Metabolic Jqk431 BUN 13 mg/dL 03/06/2016 Comp Metabolic Vuq730 B/ C Ratio 20.3 Ratio 03/06/2016 Comp Metabolic Kit787 CA LCIUM 9.7 mg/dL 03/06/2016 Comp Metabolic Xyz296 AL K PHOS 146 U/L 03/06/2016 Comp Metabolic Nnx821 T(SGOT) 25 U/L 03/06/2016 Comp Metabolic Sva907 AL T(SGPT) 25 U/L 03/06/2016 Comp Metabolic Vdg660 BI LI T 0.3 mg/dL 03/06/2016 Comp Metabolic Tkc847 AL BUMIN 4.1 g/dL 03/06/2016 Comp Metabolic Cpt354 TP RO 6.9 g/dL 03/06/2016 Comp Metabolic Qqp571 GL OB 2.8 g/dL 03/06/2016 Comp Metabolic Bcb870 A/ G Ratio 1.5 Ratio 03/06/2016 Comp Metabolic Gpb262 Os mo 279 mOsmo 03/06/2016 Cbc With [...] 83.0 fl 03/06/2016 Cbc With Differential Ord2 [place]% 9.2 % 03/06/2016 Cbc With Differential Ord2 [...] 1.35 K/ul 03/06/2016 Cbc With Differential Ord2 [place] ABS# 0.5 K/ul 03/06/2016 Cbc With Differential Ord2 Eos ABS# 0.2 K/ul 03/06/2016 Cbc With Differential Ord2 Baso ABS# 0.1 K/ul 03/06/2016 Tsh Ord6 hTSH II 3.61 uIU/mL 03/06/2016 Culture Urine [id number] URI NE CULTURE SEE NOTES 08/20/2015 Culture Urine [id number] Con tinued Results 08/20/2015 Urine Culture Ucult Comp lete Growth of aerobe sent to ref lab 08/18/2015 Vitamin D 25 Oh Wqq5207 VITAMIN D, 25 HYDROXY 24.39 ng/mL 07/18/2015 Comp Metabolic Mrc813 NA 136 mEq/L 07/17/2015 Comp Metabolic Huv396 K 4.0 mEq/L 07/17/2015 Comp Metabolic Lkg246 CL 100 mEq/L 07/17/2015 Comp Metabolic Ftw632 CO2 27.0 mEq/L 07/17/2015 Comp Metabolic Htm197 AN ION GAP 13 07/17/2015 Comp Metabolic Ltq980 GL UCOSE 121 mg/dL 07/17/2015 Comp Metabolic Bhg516 Cr eat 0.7 mg/dL 07/17/2015 Comp Metabolic Vsg471 eG FR 96 ml/min/1.73m2 07/16 Comp Metabolic Xau448 BUN 10 mg/dL 07/17/2015 Comp Metabolic Ayj766 B/ C Ratio 14.5 Ratio 07/17/2015 Comp Metabolic Wgw856 CA LCIUM 8.9 mg/dL 07/17/2015 Comp Metabolic Cxc967 AL K PHOS 146 U/L 07/17/2015 Comp Metabolic Iun370 T(SGOT) 20 U/L 07/17/2015 Comp Metabolic Jtt334 AL T(SGPT) 22 U/L 07/17/2015 Comp Metabolic Owc628 BI LI T 0.4 mg/dL 07/17/2015 Comp Metabolic Mqd190 AL BUMIN 4.0 g/dL 07/17/2015 Comp Metabolic Nin544 TP RO 6.6 g/dL 07/17/2015 Comp Metabolic Tdf584 GL OB 2.6 g/dL 07/17/2015 Comp Metabolic Cym900 A/ G Ratio 1.6 Ratio 07/17/2015 Comp Metabolic Tcz190 Os mo 272 mOsmo 07/17/2015 Sed Rate [...] 26.1 pg 07/17/2015 Cbc With Differential Ord2 [place]% 12.6 % 07/17/2015 Cbc With Differential Ord2 [...] 1.25 K/ul 07/17/2015 Cbc With Differential Ord2 [place] ABS# 0.9 K/ul 07/17/2015 Cbc With Differential [...] Crqnt CRP 2.9 mg/dl 07/17/2015 GFR CALC 8178456 GFR AA >60 ML/MIN 10/06/2013 GFR CALC 1054045 GFR NON -AA >60 ML/MIN 10/06/2013 CHEM 14 6382058 AST 34 U/L 10/06/2013 CHEM 14 5601133 ALT 30 IU/L 10/06/2013 CHEM 14 8390549 BUN 11 MG/DL 10/06/2013 CHEM 14 5607318 ALBUMIN 4.4 GM/DL 10/06/2013 CHEM 14 4382320 CHLORIDE 107 MMOL/L 10/06/2013 CHEM 14 8306851 BILI TOT 0.4 MG/DL 10/06/2013 CHEM 14 0367943 ALK PHOS 133 U/L 10/06/2013 CHEM 14 4612530 SODIUM 140 MMOL/L 10/06/2013 CHEM 14 8372665 CREATINI NE 0.67 MG/DL 10/06/2013 CHEM 14 6070681 CALCIUM 9.3 MG/DL 10/06/2013 CHEM 14 9465156 POTASSIUM 4.0 MMOL/L 10/06/2013 CHEM 14 1022708 PROT TOT 7.1 GM/DL 10/06/2013 CHEM 14 0643835 GLUCOSE 108 MG/DL 10/06/2013 CHEM 14 6277204 BICARB 25 MMOL/L 10/06/2013 CHEM 14 4384834 ANION GAP 8 MEQ/L 10/06/2013 VIT D TOTL 3152147 VIT D TOTL 37 NG/ML 10/06/2013 GC/CHL PRB 6691284 CHLM PROBE NEG 09/21/2013 GC/CHL PRB 0133469 GC WA OBE NEG 09/21/2013 DNA AB 6049387 DNA AB 36 IU/ML 09/17/2013 RA FACTOR 8292212 RA FAC TOR <20.0 IU/ML 09/16/2013 SM MUSC AB 5341950 SM MU SC AB <1:20 09/16/2013 CARDIO G/M 9652206 CARDI O IGG 1.7 GPLU 09/16/2013 CARDIO G/M 5139653 CARDI O IGM 4.8 MPLU 09/16/2013 ALENA SCR 2651384 ALENA SCR <1:80 09/16/2013 CRP 5539737 CRP 1.1 MG/DL 09/15/2013 ESR 6926293 ESR 22 MM/HR 09/15/2013 CBC 1022549 WBC 5.5 10e9/L 04/26/2013 CBC 1978891 RBC 4.89 10e12/L 04/26/2013 CBC 1515865 HGB 12.8 g/dL 04/26/2013 CBC 8697506 HCT DET 39.5 % 04/26/2013 CBC 5290435 MCV 80.8 fL 04/26/2013 CBC 3361263 MCH 26.2 pg 04/26/2013 CBC 9786628 MCHC 32.4 g/dL 04/26/2013 CBC 2798566 PLT 299 10e9/L 04/26/2013 CBC 1407395 MPV 10.9 fL 04/26/2013 CBC 9541380 WAN % 59.0 % 04/26/2013 CBC 3898243 LY % 29.6 % 04/26/2013 CBC 6945883 MON % 9.1 % 04/26/2013 CBC 0400159 EOS % 1.8 % 04/26/2013 CBC 5109129 BASO % 0.5 % 04/26/2013 CBC 4486544 RDW 13.9 % 04/26/2013 CBC 1588195 ABS WAN 3.25 10e9/L 04/26/2013 CBC 6062496 ABS LYMPH 1.63 10e9/L 04/26/2013 CBC 4467225 ABS MONO 0.50 10e9/L 04/26/2013 CBC 8073555 ABS EOS 0.10 10e9/L 04/26/2013 CBC 9771595 ABS BASO 0.03 10e9/L 04/26/2013 CBC 9557277 RDW-SD 39.9 fL 04/26/2013 URINALYSIS NONAUTO W/O SCOPE 52546 Specific [place] 1.020 DateTime(Free Text in [employer]) URINALYSIS NONAUTO W/O SCOPE 91942 PH 6.0 DateTime(Free Rik t in Aprima) URINALYSIS NONAUTO W/O SCOPE 59908 GLUCOSE neg DateTime(Free Rik t in Aprima) URINALYSIS NONAUTO W/O SCOPE 24739 Protein neg DateTime(Free Rik t in Apr[employer]) URINALYSIS NONAUTO W/O SCOPE 35127 Blood neg DateTime(Free Rik t in [employer]) URINALYSIS NONAUTO W/O SCOPE 46248 Bilirubin neg DateTime(Free Rik t in Aprima) URINALYSIS NONAUTO W/O SCOPE 38847 Ketones neg DateTime(Free Rik t in [employer]) URINALYSIS NONAUTO W/O SCOPE 28060 Urobilinogen neg DateTime(Free Text in [employer]) URINALYSIS NONAUTO W/O SCOPE 46809 Nitrite neg DateTime(Free Rik t in [employer]) URINALYSIS NONAUTO W/O SCOPE 87689 Leukocytes 1+ DateTime(Free Text in [employer]) Review [...] Procedures Procedure Codes Date IMMUNIZATION ADMIN CPT-4: 21168Dfhklsn 12/07/2015 FLU VACC 4 AMBER 3 YRS PLUS IM SNOMED CT: [id number] CPT-4: 23530Rltkmcq 12/07/2015 URINALYSIS NONAUTO W /O SCOPE CPT-4: 80846Jotlnpo 08/17/2015 CHEM 14 (COMPREHEN M ETABOLIC PANEL) CPT-4: 49857Bprlzjf 10/06/2013 VIT D TOTL (VITAMIN D 25 HYDROXY) CPT-4: 43977Wdhsyeh 10/06/2013 CRP (C-REACTIVE PROT EIN) CPT-4: 54370Prqetve 09/15/2013 ESR (RBC SED RATE AU TOMATED) CPT-4: 79518Lpvtowy 09/15/2013 ROUTINE VENIPUNCTURE CPT-4: 26452Pofoxtz 09/15/2013 URINALYSIS NONAUTO W /O SCOPE CPT-4: 59777Mnaculw 08/16/2013 C URINE RT CPT-4: 7813962Bwsgzlv 08/16/2013 C URINE RT (URINE CU LTURE/COLONY COUNT) CPT-4: 30727Dxmpnot 08/16/2013 ROUTINE VENIPUNCTURE CPT-4: 68221Fsmbqmh 04/26/2013 Vital Signs Date Vital 08/05/2016 Blood Pressure 1: 134/82 Code: 8480-6 Heart Rate 1: 113 bpm Height: 5'5" SpO2: 98% 07/22/2016 Blood Pressure 1: 142/84 Code: 8480-6 BMI: 39.6 Code: 34848-9 Heart Rate 1: 103 bpm Height: 5'5" SpO2: 97% Weight: 238 lbs 03/06/2016 Blood Pressure 1: 138/86 Code: 8480-6 Heart Rate 1: 100 bpm SpO2: 96% Weight: 246 lbs 12/07/2015 Blood Pressure 1: 140/78 Code: 8480-6 BMI: 40.8 Code: 98044-4 Heart Rate 1: 97 bpm Height: 5'6" SpO2: 98% Weight: 250 lbs 11/09/2015 Blood Pressure 1: 118/84 Code: 8480-6 BMI: 40.7 Code: 12906-1 Heart Rate 1: 85 bpm Height: 5'6" SpO2: 98% Weight: 249 lbs 08/17/2015 Blood Pressure 1: 122/82 Code: 8480-6 BMI: 39.4 Code: 53189-0 Heart Rate 1: 86 bpm Height: 5'6" SpO2: 95% Weight: 241 lbs 07/24/2015 Blood Pressure 1: 118/76 Code: 8480-6 BMI: 39.9 Code: 62188-7 Heart Rate 1: 97 bpm Height: 5'6" SpO2: 96% Weight: 244 lbs 07/16/2015 Blood Pressure 1: 158/80 Code: 8480-6 Blood Pressure 1: 120/86 Code: 8480-6 Heart Rate 1: 105 bpm Height: 5'6" SpO2: 98% Weight: 06/12/2015 Blood Pressure 1: 128/82 Code: 8480-6 BMI: 39.9 Code: 63857-7 Heart Rate 1: 89 bpm Height: 5'6" SpO2: 98% Weight: 244 lbs 03/08/2015 Blood Pressure 1: 130/86 Code: 8480-6 Heart Rate 1: 98 bpm Height: 5'6" SpO2: 97% Weight: 12/29/2014 Blood Pressure 1: 138/88 Code: 8480-6 BMI: 39.2 Code: 81165-8 Heart Rate 1: 109 bpm Height: 5'6" SpO2: 97% Weight: 240 lbs 11/17/2014 Blood Pressure 1: 170/98 Code: 8480-6 BMI: 39.7 Code: 57851-2 Heart Rate 1: 92 bpm Height: 5'6" SpO2: 98% Weight: 243 lbs 05/16/2014 Blood Pressure 1: 130/82 Code: 8480-6 BMI: 39.2 Code: 75199-2 Heart Rate 1: 88 bpm Height: 5'6" Weight: 240 lbs 04/04/2014 Blood Pressure 1: 146/92 Code: 8480-6 Blood Pressure 2: 136/86 Code: 8480-6 BMI: 39.9 Code: 81887-6 Heart Rate 1: 68 bpm Height: 5'6" Weight: 244 lbs 12/01/2013 Blood Pressure 1: 142/80 Code: 8480-6 BMI: 38.4 Code: 29035-6 Heart Rate 1: 80 bpm Height: 5'6" Weight: 235 lbs 10/10/2013 Blood Pressure 1: 128/88 Code: 8480-6 BMI: 38.7 Code: 67017-3 Heart Rate 1: 88 bpm Height: 5'6" Weight: 237 lbs 09/15/2013 Blood Pressure 1: 112/74 Code: 8480-6 BMI: 39.0 Code: 77070-5 Heart Rate 1: 80 bpm Height: 5'6" Weight: 239 lbs 08/16/2013 Blood Pressure 1: 124/64 Code: 8480-6 BMI: 39.0 Code: 36480-8 Heart Rate 1: 88 bpm Height: 5'6" Weight: 239 lbs 06/06/2013 Blood Pressure 1: 120/72 Code: 8480-6 BMI: 37.9 Code: 73039-9 Heart Rate 1: 84 bpm Height: 5'6" Weight: 232 lbs 04/26/2013 Blood Pressure 1: 148/86 Code: 8480-6 BMI: 37.7 Code: 86319-9 Heart Rate 1: 84 bpm Height: 5'6" Weight: 231 lbs 04/14/2013 Blood Pressure 1: 148/92 Code: 8480-6 BMI: 38.2 Code: 37057-2 Heart Rate 1: 88 bpm Height: 5'6" [...] Encounters Encounter Performer Loca tion Codes Date ([id number]) [id number] EST. P ATIENT, LEVEL III Diagnosis: Impaired fasting glucose[ICD10: R73.01] Diagnosis: Low back pain[ICD10: M54.5] Diagnosis: Generalized anxiety disorder[ICD10: F41.1] Katy Manzanares MD, [facility] CPT-4: 53020 08/05/2016 ([id number]) 99367 EST. P ATIENT, LEVEL III Diagnosis: Essential (primary) hypertension[ICD10: I10] Diagnosis: Radiculopathy, lumbar region[ICD10: M54.16] Katy Manzanares MD, [facility] CPT-4: 29212 07/22/2016 ([id number]) Ganesh coats no charge Diagnosis: Dysuria[ICD10: R30.0] Ally Manzanares MD, [facility] CPT-4: 86773 06/12/2016 ([id number]) 88341 EST. P ATIENT, LEVEL IV Diagnosis: Type 2 diabetes mellitus without complications[ICD10: E11.9] Diagnosis: Vitamin D deficiency, unspecified[ICD10: E55.9] Diagnosis: Generalized anxiety disorder[ICD10: F41.1] Diagnosis: Essential (primary) hypertension[ICD10: I10] Diagnosis: Radiculopathy, cervical region[ICD10: M54.12] Diagnosis: Cardiac murmur, unspecified[ICD10: R01.1] Katy Manzanares MD, [facility] CPT-4: 22356 03/06/2016 ([id number]) 64177 EST. 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 P ATIENT, LEVEL IV Diagnosis: Essential (primary) hypertension[ICD10: I10] Diagnosis: Generalized anxiety disorder[ICD10: F41.1] Diagnosis: Other obesity due to excess calories[ICD10: E66.09] Katy Manzanares MD, [facility] CPT-4: 96173 11/09/2015 ([id number]) 87398 EST. P ATIENT, LEVEL III Diagnosis: Urinary tract infection, site not specified[ICD10: N39.0] Katy Manzanares MD, [facility] CPT-4: 49567 08/17/2015 ([id number]) 63387 EST. P ATIENT, LEVEL III Diagnosis: Generalized anxiety disorder[ICD10: F41.1] Diagnosis: Major depressive disorder, recurrent, moderate[ICD10: F33.1] Katy Manzanares MD, [facility] CPT-4: 68624 07/24/2015 ([id number]) 10139 EST. P ATIENT, LEVEL IV Diagnosis: Myalgia[ICD10: M79.1] Diagnosis: Low back pain[ICD10: M54.5] Diagnosis: Cervicalgia[ICD10: M54.2] Diagnosis: Essential (primary) hypertension[ICD10: I10] Diagnosis: Vitamin D deficiency, unspecified[ICD10: E55.9] Diagnosis: Generalized anxiety disorder[ICD10: F41.1] Katy Manzanares MD, [facility] CPT-4: 98360 07/16/2015 ([id number]) 18413 EST. P ATIENT, LEVEL IV Diagnosis: Cervicalgia[ICD10: M54.2] Diagnosis: Essential (primary) hypertension[ICD10: I10] Diagnosis: Low back pain[ICD10: M54.5] Diagnosis: Radiculopathy, cervical region[ICD10: M54.12] Katy Manzanares MD, [facility] CPT-4: 74646 06/12/2015 [id number] EST. PATIENT, LEVEL III Diagnosis: Sacroiliitis, not elsewhere classified[ICD10: M46.1] Diagnosis: Low back pain[ICD10: M54.5] Diagnosis: Pain in left hip[ICD10: M25.552] Diagnosis: Pain in right hip[ICD10: M25.551] Samantha Manzanares MD, [facility] CPT-4: 95165 03/08/2015 19615 EST. 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 P ATIENT, LEVEL IV Diagnosis: ESSENTIAL HYPERTENSION[ICD9: 401.9] Diagnosis: Anxiety[ICD9: 300.00] Diagnosis: Depression[ICD9: 311] Katy Manzanares MD, [facility] CPT-4: 93995 11/17/2014 ([id number]) 61139 EST. P ATIENT, LEVEL IV Diagnosis: Anxiety[ICD9: 300.00] Diagnosis: Depression[ICD9: 311] Diagnosis: DIABETES TYPE II[ICD9: 250.00] Diagnosis: Vitamin D deficiency[ICD9: 268.9] Diagnosis: ESSENTIAL HYPERTENSION[ICD9: 401.9] Diagnosis: ABNORMAL WEIGHT GAIN[ICD9: 783.1] Katy Manzanares MD, [facility] CPT- 4: 33919 05/16/2014 ([id number]) 13244 EST. P ATIENT, LEVEL IV Diagnosis: ESSENTIAL HYPERTENSION[ICD9: 401.9] Diagnosis: Anxiety[ICD9: 300.00] Diagnosis: Depression[ICD9: 311] Katy Manzanares MD, [facility] CPT-4: 15393 04/04/2014 ([id number]) 82478 EST. P ATIENT, LEVEL IV Diagnosis: Diarrhea[ICD9: 787.91] Diagnosis: Epigastric pain[ICD9: 789.06] Diagnosis: ESOPHAGEAL REFLUX[ICD9: 530.81] Diagnosis: Blood in stool[ICD9: 578.1] Katy Manzanares MD, [facility] CPT- 4: 92427 12/01/2013 ([id number]) 18956 EST. P ATIENT, LEVEL IV Diagnosis: Vitamin D deficiency[ICD9: 268.9] Diagnosis: DIABETES TYPE II[ICD9: 250.00] Diagnosis: Depression[ICD9: 311] Diagnosis: Insomnia[ICD9: 780.52] Ally Manzanares MD, [facility] CPT-4: 30756 10/10/2013 ([id number]) PREV VISIT E ST AGE 40-64 Diagnosis: Well woman exam with routine gynecological exam[ICD9: V72.31] Diagnosis: JOINT PAIN-UNSPEC[ICD9: 719.40] Diagnosis: Nasal septal ulcer[ICD9: 478.19] Diagnosis: Swelling of extremity[ICD9: 729.81] Diagnosis: Pleuritic chest pain[ICD9: 786.52] Katy Manzanares MD, [facility] CPT-4: 49925 09/15/2013 ([id number]) 40700 EST. P ATIENT, LEVEL IV Diagnosis: DM W/O COMPLICATION TYPE II, UNCONTROLLED[SNOMED: 65247734] Diagnosis: Urinary tract infection[ICD9: 599.0] Diagnosis: DEPRESSIVE DISORDER NEC[ICD9: 311] Diagnosis: Anxiety[ICD9: 300.00] Diagnosis: Insomnia[ICD9: 780.52] Diagnosis: ANEMIA[ICD9: 285.9] Katy Manzanares MD, [facility] CPT-4: 66201 08/16/2013 ([id number]) 69644 EST. P ATIENT, LEVEL III Diagnosis: DM w/o complication type II, uncontrolled[SNOMED: 78340895] [facility] CPT-4: 91244 06/06/2013 ([id number]) 85741 EST. P ATIENT, LEVEL III Diagnosis: DIABETES TYPE II[SNOMED: 957832453] Ally Manzanares MD, [facility] CPT- 4: 88511 04/26/2013 ([id number]) OFFICE VISI T, NEW - LEVEL 4 Diagnosis: Elevated blood pressure[ICD9: 796.2] Diagnosis: Depression[ICD9: 311] Diagnosis: Elevated alkaline phosphatase level[ICD9: 790.5] Diagnosis: Elevated glucose[ICD9: 790.29] [facility] CPT-4: 87637 04/14/2013 Plan of Care Planned Activity Notes C odes Status Date Visit Plan: Elevated glucose-check Hgb A 1C Low back pain-will write letter on patient's behalf for insurance precertification Pgfmbrg-kenumdjctu-bbgx controlled-no changes 08/05/2016 Appointment: Katy Do WPtel: [phone] (30 min) Complex 08/05/2016 Patient Education: Patient [...] next month. 07/22/2016 Appointment: Katy Do WPtel: [phone] (15 min) Moderate 07/22/2016 Patient Education: Patient [...] Echo 03/06/2016 Appointment: Katy Do WPtel: [phone] [phone] (30 min) Complex 03/06/2016 Patient Education: Patient [...] current medications. 12/07/2015 Appointment: Katy Do WPtel: [address] [place], [place] [phone] [place] [address] (30 min) Complex 12/07/2015 Patient Education: Patient [...] weight check. 11/09/2015 Appointment: Katy Do WPtel: [address] [place], [place] [id number] [place] [address] (30 min) Complex 11/09/2015 Patient Education: Patient Medication Summary Completed 11/09/2015 Patient Education: Obesity Completed 11/09/2015 Care Plan: BMI Above normal followup LOLI F-MGMT EDUC & TRAIN 1 PT Pending 11/09/2015 Appointment: Katy Do WPtel: [address] [place], [place] [id number] (30 min) Complex 11/08/2015 Appointment: Katy Do WPtel: [address] [place], [place] [phone] (15 min) Moderate 08/23/2015 Visit Plan: Urinary [...] D level 07/24/2015 Appointment: Katy Do WPtel: [address] [place], [place] [id number] (30 min) Complex 07/24/2015 Patient Education: Patient [...] change in blood pressure readings at home.Neck truv-dkhgrfjozrfpr-tgvqw to Dr Mckee for evaluation-patient has been [...] min) Moderate 09/04/2014 Appointment: Katy Do WPtel: [facility]8 [place] [phone] Follow up 07/07/2014 Visit Plan: Anxiety and [...] Hypertension Completed 05/16/2014 Appointment: Katy Do WPtel: [facility]3 [phone] Follow up 05/09/2014 Visit Plan: Hypertension [...] this patient. 2014 Appointment: Katy Do WPtel: [phone] Follow up 04/04/2014 Patient Education: Patient Medication [...] 12/01/2013 Care Plan: Referral Order SNOMED-CT : [id number] Ordered 12/01/2013 Visit Plan: Diabetes Mellitus - [...] for insomnia. 10/10/2013 Appointment: Ally Manzanares WPtel: [facility] [place] Follow up 10/10/2013 Patient Education: Patient Medication Summary Completed 10/10/2013 Appointment: Ally Manzanares WPtel: [facility]1 [facility] [place] Lab Draw 10/06/2013 Patient Education: Patient Medication Summary Completed 10/06/2013 Appointment: Ally Manzanares WPtel: [facility] [place] Follow up 10/04/2013 Visit Plan: Well Adult Female - exam co mpleted. Pap and breast exam completed. Pt will be called with results of her testing. She was advised to continue with yearly annual exams. Safe sex practices discussed during office visit today. Call if any abnormal gynecologic issues during the next year, otherwise, RTC yearly or prn.Joint pain-pleuritic chest pain-swelling of semu-rksdkdg-lmrhpst for autoimmune disease such as lupus-plan to check labs and proceed as indicated. Instructed patient we will call her with results of labs. 09/15/2013 Appointment: Katy Do WPtel: [phone] [place] Pap Only 09/15/2013 Patient Education: Patient [...] iron panel 08/16/2013 Appointment: Katy Do WPtel: [address] [place], [place] [phone] [place] [address] Follow up 08/16/2013 Patient Education: Patient Medication Summary Completed 08/16/2013 Care Plan: C URINE RT Pending 08/16/2013 Appointment: Katy Do WPtel: [address] [place], [place] [phone] [place] [address] Follow up 08/09/2013 Appointment: Ally Manzanares WPtel: [address] [place], [place] [phone] Follow up 08/08/2013 Visit Plan: Diabetes Mellitus [...] glucose control. 2013 Appointment: Ally Manzanares WPtel: [facility]4 [facility] Follow up 06/06/2013 Patient Education: Patient Medication Summary Completed 06/06/2013 Appointment: Ally Manzanares WPtel: [facility] Follow up 05/12/2013 Visit Plan: Diabetes Mellitus [...] glucose control. 2013 Appointment: Katy Do WPtel: [phone] Diabetic education 04/26/2013 Patient Education: Patient Medication Summary Completed 04/26/2013 Visit Plan: Elevated Blood Pressure - w [facility] diagnosis of hypertension - pt has [...] and hgba1c. 04/14/2013 Appointment: Ally Manzanares WPtel: [facility]5 [facility] New Patient 04/14/2013 Patient Education: Patient Medication Summary Completed 04/14/2013 Appointment: Ally Manzanares WPtel: [facility]5 [facility] New Patient 04/05/2013 Referral: Dr Trujillo Referral [...] Elevated glucose - check glucose and hgba1c. trazodone is to help with insomnia and to help with anxiety and depression. - hold trazodone for now lexapro is for anxiety and depression - increase to two pills daily keep metformin at current dose. picker tender RX for vitamin D 35624 units weekly. . Diabetes Mellitus - controlled [...] month for weight check. . Hypertension - unc ontrolled - the [...] or prn. Joint pain-pleuritic chest pain-swelling of xkte-aymrbxg-mgoicjz for autoimmune disease such as lupus-plan to [...] Samuels to do surgery next month. . Diabetes Mellitus - new diagnosis- I [...] glucose control. HOLD METFORMIN X 1 W [place] RESTART PANTOPRAZOLE DAILY CONTINUE CARAFATE BEFORE MEALS [...] exposure. No change in current medications. . Pt is currently we aring a [...] WILL WEAN OFF LEXAPRO. Anemia-check iron panel pt needs to take VIT OSPINA D [...] to allow for greater blood glucose control. Decrease fetzima to 20 mg daily over [...] pt is to call for acute concerns. [phone] Samuels and call Sandee to picker tender a copy . Elevated glucose-check Hgb A1C Low back pain-will write letter on patient's behalf for insurance precertification Pdwmtwe-pxnxcpstyx-nmto controlled-no changes . Hypertension - wel l controlled - continue with current medications, continue with no added salt diet. Pt has been encouraged to exercise daily. The pt has been advised to call the office if there are any acute concerns about change in blood pressure readings at home. Neck ccbn-ggywqwcqnuiqu-ajgne to Dr Mckee for evaluation-patient has been [...]
--- OUTSIDE RECORDS SUMMARY | 2019-03-04 02:50 | XMS REPORT | CCD ---
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[employer], [employer]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 09/15/2013 Marital status Unknown M arried 04/14/[address]: [id number] Never smoker 04/14/2013 Alcohol history Unknown occasionally [...] Codes Condition Status Onset Date Resolved Date Insect bite (nonveno mous), left lower leg, subsequent encounter ICD-9: V58.89 ICD-10: S80.862D Active 04/22/2018 Unknown Insect bite (nonveno mous), left lower leg, initial encounter ICD-9: 916.4 ICD-10: S80.862A Active 04/20/2018 Unknown Dysuria ICD-9: 788.1 ICD-10: R30.0 Active 06/12/2016 Unknown Other specified cond itions associated with female genital organs and menstrual cycle ICD-9: 625.9 ICD-10: N94.89 Active 11/02/2017 Unknown Essential (primary) hypertension ICD-9: 401.9 ICD-10: I10 Active 03/05/2016 Unknown Generalized anxiety disorder ICD-9: 300.02 ICD-10: F41.1 Active 03/05/2016 Unknown 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 Active 05/12/2017 Unknown Major depressive dis order, recurrent, moderate ICD-9: 296.32 ICD-10: F33.1 Active 07/23/2015 Unknown Type 2 diabetes marissa itus with hyperglycemia ICD-9: 250.02 ICD-10: E11.65 Active 10/13/2017 Unknown Vitamin D deficiency , unspecified ICD-9: [...] ICD-9: 724.2 ICD-10: M54.5 Active 07/15/2015 Unknown Radiculopathy, lumba r region ICD-9: 724.4 [...] ICD-9: 599.0 ICD-10: N39.0 Active 08/16/2015 Unknown Cervicalgia ICD-9: 723.1 ICD-10: M54.2 Active 07/15/2015 Unknown Pain in left hip [...] Condition Codes Effectiv e Dates Condition Status Insect bite (nonveno mous), left lower leg, subsequent encounter ICD-9: V58.89 ICD-10: S80.862D 04/22/2018 Active Insect bite (nonveno mous), left lower leg, initial encounter ICD-9: 916.4 ICD-10: S80.862A 04/20/2018 Active Dysuria ICD-9: 788.1 ICD-10: R30.0 06/12/2016 Active Other specified cond itions associated with female genital organs and menstrual cycle ICD-9: 625.9 ICD-10: N94.89 11/02/2017 Active Essential (primary) hypertension ICD-9: 401.9 ICD-10: I10 03/05/2016 Active Generalized anxiety disorder ICD-9: 300.02 ICD-10: F41.1 03/05/2016 Active 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 05/12/2017 Active Major depressive dis order, recurrent, moderate ICD-9: 296.32 ICD-10: F33.1 07/23/2015 Active Type 2 diabetes marissa itus with hyperglycemia ICD-9: 250.02 ICD-10: E11.65 10/13/2017 Active Vitamin D deficiency , unspecified ICD-9: [...] pain ICD-9: 724.2 ICD-10: M54.5 07/15/2015 Active Radiculopathy, lumba r region ICD-9: 724.4 [...] specified ICD-9: 599.0 ICD-10: N39.0 08/16/2015 Active Cervicalgia ICD-9: 723.1 ICD-10: M54.2 07/15/2015 Active Pain in left hip ICD-9: [...] 50 mg tablet,extended release 24 hr RxNorm: 638329 1 Tablet(s) PO daily 05/12/2018 11/07/2018 Active lisinopril 20 mg-hyd rochlorothiazide 12.5 mg tablet RxNorm: 963148 TAKE 1 TABLET BY MOUTH ONCE DAILY 05/03/2018 No Stop Date Active Bactrim DS 800 mg-16 0 mg tablet RxNorm: 191957 1 Tablet(s) PO BID 04/20/2018 04/26/2018 Inactive mupirocin 2 % topica l ointment RxNorm: 507039 1 Application TOP BID 04/20/2018 04/29/2018 Inactive Diflucan 150 mg tablet RxNorm: 719061 1 Tablet(s) PO daily 11/02/2017 11/08/2017 Inactive Wellbutrin XL 300 mg 24 hr tablet, extended release RxNorm: 239604 TAKE 1 TABLET BY MOUTH ONCE DAILY 09/07/2017 No Stop Date Active metoprolol succinate ER 50 mg tablet,extended release 24 hr RxNorm: 343920 1 Tablet(s) PO daily 07/20/2017 01/15/2018 Inactive amitriptyline 25 mg tablet RxNorm: 466470 Tablet(s) 2 TAB(S) PO HS 07/09/2017 10/06/2017 Inactive Bystolic 5 mg tablet RxNorm: 508442 1 Tablet(s) PO daily 06/09/2017 07/08/2017 Inactive Vitamin D2 50,000 un it capsule RxNorm: 642524 1 Capsule(s) PO QW 05/12/2017 08/09/2017 Inactive metformin 500 mg tablet RxNorm: 008633 1/2 Tablet(s) PO QPM 05/12/2017 11/07/2017 Inactive metformin 500 mg tablet RxNorm: 131344 1/2 Tablet(s) PO QPM 05/12/2017 05/11/2017 Inactive lisinopril 20 mg-hyd rochlorothiazide 12.5 mg tablet RxNorm: 283158 1 TABLET(S) PO DAILY 04/23/2017 10/19/2017 Inactive Wellbutrin XL 300 mg 24 hr tablet, extended release RxNorm: 106274 1 Tablet(s) PO daily 1 TABLET(S) PO DAILY 12/01/2016 05/29/2017 Inactive Wellbutrin XL 150 mg 24 hr tablet, extended release RxNorm: 673107 1 TABLET(S) PO DAILY 10/07/2016 11/30/2016 Inactive amitriptyline 25 mg tablet RxNorm: 266695 2 TAB(S) PO HS,INSTR: FOR PAIN AND SLEEP 09/24/2016 07/08/2017 In active amitriptyline 25 mg tablet RxNorm: 002557 2 Tablet(s) PO QHS 09/23/2016 09/23/2016 Inactive meloxicam 15 mg tablet RxNorm: 238526 1 TABLET(S) PO DAILY 09/08/2016 12/06/[address] on hold until pt needs it: she is going to take (2) 7.5mg until gone cetirizine 10 mg tablet RxNorm: 8674223 1 Tablet(s) PO daily 07/22/2016 No Stop Date Active lisinopril 20 mg-hyd rochlorothiazide 12.5 mg tablet RxNorm: 731990 1 TABLET(S) PO DAILY 06/20/2016 12/16/2016 Inactive Wellbutrin XL 150 mg 24 hr tablet, extended release RxNorm: 136346 1 TABLET(S) PO DAILY 05/12/2016 08/09/2016 Inactive Victoza 3-Jean 0.6 mg /0.1 mL (18 mg/3 mL) subcutaneous pen injector RxNorm: 885588 0.6 Milligram(s) SQ daily 03/21/2016 07/21/2016 Inactive NovoFine Plus 32 gau ge x 1/6" needle RxNorm: 1 Miscellaneous daily 03/21/2016 07/21/2016 Inactive NovoFine Plus 32 gau ge x 1/6" needle RxNorm: 1 Miscellaneous daily 03/21/2016 03/20/2016 Inactive Victoza 3-Jean 0.6 mg /0.1 mL (18 mg/3 mL) subcutaneous pen injector RxNorm: 796717 0.6 Milligram(s) SQ daily 03/21/2016 03/20/2016 Inactive Vitamin D2 50,000 un it capsule RxNorm: 167120 1 Capsule(s) PO QW 03/20/2016 06/17/2016 Inactive meloxicam 15 mg tablet RxNorm: 714764 1 Tablet(s) PO daily 03/20/2016 07/17/[address] on hold until pt needs it: she is going to take (2) 7.5mg until gone lisinopril 20 mg-hyd rochlorothiazide 12.5 mg tablet RxNorm: 745937 1 TABLET(S) PO DAILY 02/19/2016 05/18/2016 Inactive Wellbutrin XL 150 mg 24 hr tablet, extended release RxNorm: 722427 1 Tablet(s) PO daily 11/09/2015 03/07/2016 Inactive gabapentin 800 mg ta blet RxNorm: 482739 1 Tablet(s) PO TID 11/09/2015 06/08/2017 Inactive Lexapro 10 mg tablet RxNorm: 026987 1 TABLET(S) PO QPM 11/05/2015 11/08/2015 Inactive lisinopril 20 mg-hyd rochlorothiazide 12.5 mg tablet RxNorm: 315620 1 TABLET(S) PO DAILY 10/18/2015 01/15/2016 Inactive Cipro 500 mg tablet RxNorm: 491180 1 Tablet(s) PO BID 08/17/2015 08/23/2015 Inactive Lexapro 10 mg tablet RxNorm: 742795 1 Tablet(s) PO QPM 07/24/2015 10/21/2015 Inactive Vitamin D2 50,000 un it capsule RxNorm: 285767 1 Capsule(s) PO QW 07/24/2015 10/21/2015 Inactive gabapentin 300 mg ca psule RxNorm: 915534 2 Capsule(s) PO TID 07/16/2015 11/08/2015 Inactive lisinopril 20 mg-hyd rochlorothiazide 12.5 mg tablet RxNorm: 773998 1 TABLET(S) PO DAILY 04/09/2015 07/07/2015 Inactive naproxen 250 mg tablet RxNorm: 731868 1-2 Tablet(s) PO BID as needed for pain 03/08/2015 No Stop Date Active Fetzima 40 mg capsul e,extended release RxNorm: 2587452 1 Capsule(s) PO adir y 12/22/2014 12/21/2014 In active Fetzima 40 mg capsul e,extended release RxNorm: 8911939 1 Capsule(s) PO adri y 12/22/2014 06/11/2015 In active Xanax 0.5 mg tablet RxNorm: 251403 1 Tablet(s) TAKE 1 TABLET BY MOUTH TWICE DAILY NEEDED FOR ANXIETY 11/17/2014 01/15/2015 Inactive lisinopril 20 mg-hyd rochlorothiazide 12.5 mg tablet RxNorm: 629221 1 Tablet(s) PO daily 11/17/2014 03/16/2015 Inactive Fetzima 20 mg capsul e,extended release RxNorm: 8630094 1 Capsule(s) PO adri y 11/17/2014 12/22/2014 In active Xanax 0.5 mg tablet RxNorm: 803583 1 Tablet(s) TAKE 1 TABLET BY MOUTH TWICE DAILY NEEDED FOR ANXIETY 10/27/2014 11/16/2014 Inactive Xanax 0.5 mg tablet RxNorm: 637533 TAKE 1 TABLET BY MOUTH TWICE DAILY NE EDED FOR ANXIETY 08/25/2014 10/23/2014 Inactive Brintellix 10 mg tablet RxNorm: 5345463 1 Tablet(s) PO daily 07/04/2014 07/03/2014 Inactive Brintellix 10 mg tablet RxNorm: 8350254 1 Tablet(s) PO daily 07/04/2014 11/16/2014 Inactive Brintellix 10 mg tablet RxNorm: 6553491 1 Tablet(s) PO daily 06/09/2014 07/03/2014 Inactive Contrave 8 mg-90 mg tablet,extended release RxNorm: 4884536 2 Tablet(s) PO BID 06/09/2014 09/06/2014 In active 1 tab q am x 1 week, then 1 tab BID x 1 week, then 2 q am and 1 q pm x 1 week then 2 tabs BID thereafter Contrave 8 mg-90 mg tablet,extended release RxNorm: 8617881 2 Tablet(s) PO BID 06/09/2014 06/08/2014 In active 1 tab q am x 1 week, then 1 tab BID x 1 week, then 2 q am and 1 q pm x 1 week then 2 tabs BID thereafter metformin 500 mg tablet RxNorm: 731292 1/2 Tablet(s) PO BID 05/18/2014 09/14/2014 Inactive Brintellix 10 mg tablet RxNorm: 1364995 2 Tablet(s) PO daily 05/16/2014 06/08/2014 Inactive Xanax 0.5 mg tablet RxNorm: 939858 1 Tablet(s) PO BID PRN 04/06/2014 08/25/2014 Inactive Wellbutrin XL 150 mg 24 hr tablet, extended release RxNorm: 294321 1 Tablet(s) PO daily 04/04/2014 05/15/2014 Inactive [SAVINGS FOR UNINSURED PATIENTS -- BIN:0 [id number], PCN: [id number], Group: [id number], ID# [id number], Process claim through [employer], for questions: . THIS IS NOT INSURANCE.] pantoprazole 40 mg t ablet,delayed release RxNorm: 442382 1 Tablet(s) PO daily 12/01/2013 03/30/2014 In active Vitamin D3 2,000 uni t tablet RxNorm: 857063 1 Tablet(s) PO daily 10/10/2013 No Stop Date Active Vitamin D2 50,000 un it capsule RxNorm: 282960 1 Capsule(s) PO QW 10/10/2013 11/16/2014 Inactive vitamin d 50,000 units weekly x 12 weeks then 5000 units daily thereafter escitalopram 20 mg t ablet RxNorm: 229120 1 Tablet(s) PO daily 10/10/2013 04/04/2014 Inactive trazodone 100 mg tablet RxNorm: 976771 1 TABLET(S) PO QHS 09/19/2013 01/16/2014 Inactive trazodone 100 mg tablet RxNorm: 259078 1 Tablet(s) PO QHS 08/16/2013 09/14/2013 Inactive metformin 500 mg tablet RxNorm: 845703 1 Tablet(s) PO BID 08/16/2013 04/03/2014 Inactive Diflucan 150 mg tablet RxNorm: 093488 1 Tablet(s) PO daily 08/16/2013 08/22/2013 Inactive metformin 500 mg tablet RxNorm: 857610 1/2 Tablet(s) PO BID 1/2 tab in the even ing x 1 week then 1/2 tab twice daily 04/26/2013 08/15/2013 Inactive Vitamin D2 50,000 un it capsule RxNorm: 271057 1 Capsule(s) PO QW 04/21/2013 10/09/2013 Inactive vitamin d 50,000 units weekly x 12 weeks then 5000 units daily thereafter Lexapro 10 mg tablet RxNorm: 851476 1 Tablet(s) PO daily 04/14/2013 10/09/2013 Inactive Slow Fe oral RxNorm: 01914 oral No Start Date Active tizanidine 2 mg tablet RxNorm: 908247 1 Tablet(s) PO TID No Start Date Active vitamin B complex ca psule RxNorm: 1 Capsule(s) PO daily No Start Date Active diclofenac 75 mg-mis oprostol 200 mcg tablet,immediate,delayed release RxNorm: 4765953 1 Tablet(s) PO BID No Start Date Active methocarbamol 500 mg tablet RxNorm: 027206 1 Tablet(s) PO TID No Start Date Active lisinopril 20 mg-hyd rochlorothiazide 12.5 mg tablet RxNorm: 261129 1 Tablet(s) PO daily No Start Date 11/16/2014 Inactive gabapentin 300 mg ca psule RxNorm: 108217 1 Capsule(s) PO TID No Start Date 07/15/2015 Inactive cetirizine 10 mg tablet RxNorm: 2330504 1 Tablet(s) PO daily No Start Date 03/05/2016 Inactive Vitamin D2 50,000 un it capsule RxNorm: 057563 1 Capsule(s) PO QW No Start Date 04/20/2013 Inactive pantoprazole 40 mg t ablet,delayed release RxNorm: 045107 1 Tablet(s) PO daily No Start Date 10/09/2013 Inactive amitriptyline 10 mg tablet RxNorm: 417855 1 Tablet(s) PO QHS No Start Date 09/22/2016 Inactive meloxicam 7.5 mg tablet RxNorm: 460006 1 Tablet(s) PO daily No Start Date 03/19/2016 Inactive ibuprofen 200 mg tablet RxNorm: 616512 3 Tablet(s) PO TID No Start Date 11/30/2013 Inactive Advair Diskus 250 mc g-50 mcg/dose powder for inhalation RxNorm: 8305533 2 INH daily No Start Date 07/23/2015 Inactive Medication Administered No Medication Administered data Immunizations Vaccine Codes Date Status Influenza CVX: 141 12/06 completed Influenza CVX: 141 12/07 completed Influenza CVX: 141 12/27 completed Assessments Condition Codes Effectiv e Dates Insect bite (nonvenomous), left lower le g, subsequent encounter ICD-10: S80.862D ICD-9: V58.89 04/22/2018 Insect bite (nonvenomous), left lower leg, initial enc ounter ICD-10: S80.862A ICD-9: 916.4 04/20/2018 Dysuria ICD-10: R30.0 ICD-9: 788.1 11/02/2017 Other specified conditions associated wi th female genital organs and menstrual cycle ICD-10: N94.89 ICD-9: 625.9 11/02/2017 Essential (primary) hypertension ICD -10: I10 ICD-9: 401.9 10/13/2017 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 general medical examination ICD-9: V72.62 10/06/2013 Swelling of extremity ICD-9: 729.81 09/15/2013 JOINT PAIN-UNSPEC ICD-9: 719.40 09/15/2013 Pleuritic chest pain ICD-9: 786.52 09/15/2013 Well woman exam with routine gynecological exam ICD-9: V72.31 09/15/2013 Nasal septal ulcer ICD-9: 478.19 09/15/2013 ANEMIA ICD-9: 285.9 08/07 DM W/O COMPLICATION TYPE II, UNCONTROLLED SNOMED: [id number] ICD-9: 250.02 08/16/2013 Urinary tract infection ICD-9: 599.0 08/16/2013 Elevated alkaline phosphatase level ICD-9: 790.5 04/14/2013 Elevated glucose ICD-9: 790.29 04/14/2013 Elevated blood pressure ICD-9: 796.2 04/14/2013 Reason For Visit Reason For Visit Effective Dates Notes cellulitis 04/22/2018 cellulitis 04/20/2018 rash 11/02/2017 hypertension [...] 24.3 pg 10/13/2017 Cbc With Differential Ord2 [place]% 10.1 % 10/13/2017 Cbc With Differential Ord2 [...] 1.71 K/ul 10/13/2017 Cbc With Differential Ord2 [place] ABS# 0.7 K/ul 10/13/2017 Cbc With Differential Ord2 Eos ABS# 0.1 K/ul 10/13/2017 Cbc With Differential Ord2 Baso ABS# 0.0 K/ul 10/13/2017 %Hba1C Ydw431 % HbA1c 82239-9 6.3 % 10/13/2017 %Hba1C Rdt258 Gluc Ave 134 mg/dL 10/13/2017 Comp Metabolic Lba593 NA 144 mEq/L 10/13/2017 Comp Metabolic Kym626 K 4.2 mEq/L 10/13/2017 Comp Metabolic Ghp415 CL 110 mEq/L 10/13/2017 Comp Metabolic Ass498 CO2 25.0 mEq/L 10/13/2017 Comp Metabolic Aca526 AN ION GAP 13 10/13/2017 Comp Metabolic Esb349 GL UCOSE 99 mg/dL 10/13/2017 Comp Metabolic Aoz120 Cr eat 0.6 mg/dL 10/13/2017 Comp Metabolic Cvh355 eG FR 116 ml/min/1.73m2 09/2017 Comp Metabolic Cxe794 BUN 11 mg/dL 10/13/2017 Comp Metabolic Vrs755 B/ C Ratio 19.0 Ratio 10/13/2017 Comp Metabolic Mfm918 CA LCIUM 9.1 mg/dL 10/13/2017 Comp Metabolic Pou318 AL K PHOS 134 U/L 10/13/2017 Comp Metabolic Nal162 T(SGOT) 18 U/L 10/13/2017 Comp Metabolic Uwx431 AL T(SGPT) 17 U/L 10/13/2017 Comp Metabolic Yaf929 BI LI T 0.4 mg/dL 10/13/2017 Comp Metabolic Rls684 AL BUMIN 4.0 g/dL 10/13/2017 Comp Metabolic Uqi287 TP RO 6.6 g/dL 10/13/2017 Comp Metabolic Pny758 GL OB 2.6 g/dL 10/13/2017 Comp Metabolic Ufy543 A/ G Ratio 1.5 Ratio 10/13/2017 Comp Metabolic Vxm660 Os mo 286 mOsmo 10/13/2017 Vitamin D 25 Oh Mxi2900 VITAMIN D, 25 HYDROXY 55.13 ng/mL 10/13/2017 I Fecal Occult Blood Ncg6832 IFOB Negative 05/13/2017 B12 Cxw447 B12 427.00 pg/ml 05/12/2017 Tibc Ord40 Iron 35 ug/dl 05/12/2017 Tibc Ord40 UIBC 412 ug/dL 05/12/2017 Tibc Ord40 TIBC 447 ug/dL 05/12/2017 Tibc Ord40 Fe-%Sat 7.8 % 05/12/2017 Ferritin Ord22 FERRITIN 7.2 ng/mL 05/12/2017 Comp Metabolic Ghc877 NA 142 mEq/L 05/12/2017 Comp Metabolic Ccy638 K 4.0 mEq/L 05/12/2017 Comp Metabolic Fzk215 CL 106 mEq/L 05/12/2017 Comp Metabolic Zzo630 CO2 26.0 mEq/L 05/12/2017 Comp Metabolic Sfi240 AN ION GAP 14 05/12/2017 Comp Metabolic Xhi792 GL UCOSE 137 mg/dL 05/12/2017 Comp Metabolic Hez752 Cr eat 0.6 mg/dL 05/12/2017 Comp Metabolic Bzf390 eG FR 116 ml/min/1.73m2 08/2017 Comp Metabolic Mjq467 BUN 9 mg/dL 05/12/2017 Comp Metabolic Uyd403 B/ C Ratio 15.5 Ratio 05/12/2017 Comp Metabolic Zqx692 CA LCIUM 8.8 mg/dL 05/12/2017 Comp Metabolic Lro849 AL K PHOS 171 U/L 05/12/2017 Comp Metabolic Jeq259 T(SGOT) 18 U/L 05/12/2017 Comp Metabolic Plk028 AL T(SGPT) 17 U/L 05/12/2017 Comp Metabolic Hbm686 BI LI T 0.2 mg/dL 05/12/2017 Comp Metabolic Ptx932 AL BUMIN 3.9 g/dL 05/12/2017 Comp Metabolic Zhh744 TP RO 6.5 g/dL 05/12/2017 Comp Metabolic Xtr348 GL OB 2.6 g/dL 05/12/2017 Comp Metabolic Vhi065 A/ G Ratio 1.5 Ratio 05/12/2017 Comp Metabolic Ice118 Os mo 284 mOsmo 05/12/2017 Iron Ord72 Iron 33 ug/dl 05/12/2017 Vitamin D 25 Oh Hxc4637 VITAMIN D, 25 HYDROXY 31.02 ng/mL 05/12/2017 [...] 22.0 pg 05/12/2017 Cbc With Differential Ord2 [place]% 8.1 % 05/12/2017 Cbc With Differential Ord2 [...] 1.54 K/ul 05/12/2017 Cbc With Differential Ord2 [place] ABS# 0.6 K/ul 05/12/2017 Cbc With Differential Ord2 Eos ABS# 0.2 K/ul 05/12/2017 Cbc With Differential Ord2 Baso ABS# 0.0 K/ul 05/12/2017 %Hba1C Qpz353 % HbA1c 52815-1 6.6 % 05/12/2017 %Hba1C Gvj339 Gluc Ave 143 mg/dL 05/12/2017 Tsh Ord6 TSH (3rd IS) 3.18 uIU/mL 05/12/2017 Lymes Disease Total Antibodies With Western Blot Refle x [id number] B. BURGDORFERI, IGG/IGM 0.048 12/08/2016 Lymes Disease Total Antibodies With Western Blot Refle x [id number] 12/08/2016 [place]ena Reflex Profile [id number] ALENA ([place]) SCREEN NONE DETECTED 017 Ehrlichia Chaffeensis Antibody Igm [id number] EHRLICHIA CHAFFEENSIS IGM < 1:16 12/05/2016 [place] Spotted Fever Igg/Igm 74555 3 GUME MT SPOTTED FEVER IGM EIA . 12/05/2016 [place] Spotted Fever Igg/Igm 71461 3 RMSF, IGM 0.43 index 12/05/2016 [place] Spotted Fever Igg/Igm 36655 3 GUME MT SPOTTED FEVER IGG EIA FLEX . 12/05/2016 [place] Spotted Fever Igg/Igm 00201 3 RMSF, IGG SCREEN-FLEX Negative 12/05/2016 Ehrlichia Chaffeensis Antibody Igg [id number] EHRLICHIA CHAFFEENSIS IGG <1:64 12/05/2016 Tibc Ord40 Iron 37 ug/dl 12/02/2016 Tibc Ord40 UIBC 372 ug/dL 12/02/2016 Tibc Ord40 TIBC 409 ug/dL 12/02/2016 Tibc Ord40 Fe-%Sat 9.0 % 12/02/2016 Ferritin Ord22 FERRITIN 13.9 ng/mL 12/02/2016 B12 Joy486 B12 344.00 pg/ml 12/02/2016 %Hba1C Hby319 % HbA1c 07494-8 6.1 % 12/01/2016 %Hba1C Ome344 Gluc Ave 128 mg/dL 12/01/2016 Cbc With [...] 26.2 pg 12/01/2016 Cbc With Differential Ord2 [place]% 8.8 % 12/01/2016 Cbc With Differential Ord2 [...] 1.75 K/ul 12/01/2016 Cbc With Differential Ord2 [place] ABS# 0.6 K/ul 12/01/2016 Cbc With Differential Ord2 Eos ABS# 0.4 K/ul 12/01/2016 Cbc With Differential Ord2 Baso ABS# 0.1 K/ul 12/01/2016 Tsh Ord6 hTSH II 1.80 uIU/mL 12/01/2016 C-Reactive Protein Qnt Crqnt CRP 1.5 mg/dl 12/01/2016 Sed Rate Ord21 ESR 14 mm/hr 12/01/2016 Ra Factor Gbd235 RA FACT OR <10 IU/ml 12/01/2016 Vitamin D 25 Oh Uws1772 VITAMIN D, 25 HYDROXY 30.98 ng/mL 12/01/2016 Comp Metabolic Hjy388 NA 140 mEq/L 12/01/2016 Comp Metabolic Srn680 K 3.9 mEq/L 12/01/2016 Comp Metabolic Vgo758 CL 106 mEq/L 12/01/2016 Comp Metabolic Onj604 CO2 26.0 mEq/L 12/01/2016 Comp Metabolic Amo791 AN ION GAP 12 12/01/2016 Comp Metabolic Vnr416 GL UCOSE 147 mg/dL 12/01/2016 Comp Metabolic Vrp612 Cr eat 0.6 mg/dL 12/01/2016 Comp Metabolic Uqh039 eG FR 114 ml/min/1.73m2 11/08 Comp Metabolic Nwc127 BUN 11 mg/dL 12/01/2016 Comp Metabolic Mqg662 B/ C Ratio 18.6 Ratio 12/01/2016 Comp Metabolic Lso559 CA LCIUM 8.8 mg/dL 12/01/2016 Comp Metabolic Vjz378 AL K PHOS 138 U/L 12/01/2016 Comp Metabolic Feq990 T(SGOT) 34 U/L 12/01/2016 Comp Metabolic Eej288 AL T(SGPT) 26 U/L 12/01/2016 Comp Metabolic Mkr481 BI LI T 0.3 mg/dL 12/01/2016 Comp Metabolic Yez036 AL BUMIN 3.8 g/dL 12/01/2016 Comp Metabolic Xsu185 TP RO 6.2 g/dL 12/01/2016 Comp Metabolic Dvn670 GL OB 2.4 g/dL 12/01/2016 Comp Metabolic Hgj611 A/ G Ratio 1.6 Ratio 12/01/2016 Comp Metabolic Vyr318 Os mo 281 mOsmo 12/01/2016 %Hba1C Jem488 % HbA1c 26201-2 6.3 % 08/05/2016 %Hba1C Hgz813 Gluc Ave 134 mg/dL 08/05/2016 Alena [id number] ALENA ([place]) S CREEN NONE DETECTED 017 Vitamin D 25 Oh Mvx7608 VITAMIN D, 25 HYDROXY 32.26 ng/mL 03/07/2016 Ra Factor Gtv034 RA FACT OR <10 IU/ml 03/07/2016 C-Reactive Protein Qnt Crqnt CRP 2.0 mg/dl 03/06/2016 Sed Rate Ord21 ESR 32 mm/hr 03/06/2016 %Hba1C Uzc685 % HbA1c 70216-6 6.3 % 03/06/2016 %Hba1C Ait034 Gluc Ave 134 mg/dL 03/06/2016 Comp Metabolic Fnj486 NA 138 mEq/L 03/06/2016 Comp Metabolic Kmk266 K 4.3 mEq/L 03/06/2016 Comp Metabolic Veb050 CL 103 mEq/L 03/06/2016 Comp Metabolic Xtp164 CO2 23.0 mEq/L 03/06/2016 Comp Metabolic Sys695 AN ION GAP 16 03/06/2016 Comp Metabolic Rki104 GL UCOSE 148 mg/dL 03/06/2016 Comp Metabolic Egi124 Cr eat 0.6 mg/dL 03/06/2016 Comp Metabolic Uqv348 eG FR 104 ml/min/1.73m2 02/07 Comp Metabolic Sps852 BUN 13 mg/dL 03/06/2016 Comp Metabolic Kov859 B/ C Ratio 20.3 Ratio 03/06/2016 Comp Metabolic Ody066 CA LCIUM 9.7 mg/dL 03/06/2016 Comp Metabolic Yoc136 AL K PHOS 146 U/L 03/06/2016 Comp Metabolic Ywc653 T(SGOT) 25 U/L 03/06/2016 Comp Metabolic Eah932 AL T(SGPT) 25 U/L 03/06/2016 Comp Metabolic Daw856 BI LI T 0.3 mg/dL 03/06/2016 Comp Metabolic Kgl921 AL BUMIN 4.1 g/dL 03/06/2016 Comp Metabolic Cqe731 TP RO 6.9 g/dL 03/06/2016 Comp Metabolic Zis479 GL OB 2.8 g/dL 03/06/2016 Comp Metabolic Wge410 A/ G Ratio 1.5 Ratio 03/06/2016 Comp Metabolic Jae408 Os mo 279 mOsmo 03/06/2016 Cbc With [...] 27.1 pg 03/06/2016 Cbc With Differential Ord2 [place]% 9.2 % 03/06/2016 Cbc With Differential Ord2 [...] 1.35 K/ul 03/06/2016 Cbc With Differential Ord2 [place] ABS# 0.5 K/ul 03/06/2016 Cbc With Differential Ord2 Eos ABS# 0.2 K/ul 03/06/2016 Cbc With Differential Ord2 Baso ABS# 0.1 K/ul 03/06/2016 Tsh Ord6 hTSH II 3.61 uIU/mL 03/06/2016 Culture Urine [id number] URI NE CULTURE SEE NOTES 08/20/2015 Culture Urine [id number] Con tinued Results 08/20/2015 Urine Culture Ucult Comp lete Growth of aerobe sent to ref lab 08/18/2015 Vitamin D 25 Oh Kqw9677 VITAMIN D, 25 HYDROXY 24.39 ng/mL 07/18/2015 Comp Metabolic Mpu866 NA 136 mEq/L 07/17/2015 Comp Metabolic Jtb454 K 4.0 mEq/L 07/17/2015 Comp Metabolic Izy428 CL 100 mEq/L 07/17/2015 Comp Metabolic Bhn030 CO2 27.0 mEq/L 07/17/2015 Comp Metabolic Tzn242 AN ION GAP 13 07/17/2015 Comp Metabolic Vim462 GL UCOSE 121 mg/dL 07/17/2015 Comp Metabolic Kub947 Cr eat 0.7 mg/dL 07/17/2015 Comp Metabolic Zhz874 eG FR 96 ml/min/1.73m2 07/16 Comp Metabolic Eiq875 BUN 10 mg/dL 07/17/2015 Comp Metabolic Kqt914 B/ C Ratio 14.5 Ratio 07/17/2015 Comp Metabolic Hye542 CA LCIUM 8.9 mg/dL 07/17/2015 Comp Metabolic Ocy371 AL K PHOS 146 U/L 07/17/2015 Comp Metabolic Ons070 T(SGOT) 20 U/L 07/17/2015 Comp Metabolic Top810 AL T(SGPT) 22 U/L 07/17/2015 Comp Metabolic Dob950 BI LI T 0.4 mg/dL 07/17/2015 Comp Metabolic Jnj673 AL BUMIN 4.0 g/dL 07/17/2015 Comp Metabolic Njs168 TP RO 6.6 g/dL 07/17/2015 Comp Metabolic Hvn642 GL OB 2.6 g/dL 07/17/2015 Comp Metabolic Amu746 A/ G Ratio 1.6 Ratio 07/17/2015 Comp Metabolic Gkd123 Os mo 272 mOsmo 07/17/2015 Sed Rate [...] 26.1 pg 07/17/2015 Cbc With Differential Ord2 [place]% 12.6 % 07/17/2015 Cbc With Differential Ord2 [...] 1.25 K/ul 07/17/2015 Cbc With Differential Ord2 [place] ABS# 0.9 K/ul 07/17/2015 Cbc With Differential [...] Crqnt CRP 2.9 mg/dl 07/17/2015 GFR CALC [id number] GFR AA >60 ML/MIN 10/06/2013 GFR CALC [id number] GFR NON -AA >60 ML/MIN 10/06/2013 CHEM 14 [id number] AST 34 U/L 10/06/2013 CHEM 14 [id number] ALT 30 IU/L 10/06/2013 CHEM 14 [id number] BUN 11 MG/DL 10/06/2013 CHEM 14 [id number] ALBUMIN 4.4 GM/DL 10/06/2013 CHEM 14 [id number] CHLORIDE 107 MMOL/L 10/06/2013 CHEM 14 [id number] BILI TOT 0.4 MG/DL 10/06/2013 CHEM 14 [id number] ALK PHOS 133 U/L 10/06/2013 CHEM 14 [id number] SODIUM 140 MMOL/L 10/06/2013 CHEM 14 0311941 CREATINI NE 0.67 MG/DL 10/06/2013 CHEM 14 4509871 CALCIUM 9.3 MG/DL 10/06/2013 CHEM 14 6326255 POTASSIUM 4.0 MMOL/L 10/06/2013 CHEM 14 7929071 PROT TOT 7.1 GM/DL 10/06/2013 CHEM 14 6898170 GLUCOSE 108 MG/DL 10/06/2013 CHEM 14 3221208 BICARB 25 MMOL/L 10/06/2013 CHEM 14 3056218 ANION GAP 8 MEQ/L 10/06/2013 VIT D TOTL 1689199 VIT D TOTL 37 NG/ML 10/06/2013 GC/CHL PRB 8174964 CHLM PROBE NEG 09/21/2013 GC/CHL PRB 5042083 GC OH OBE NEG 09/21/2013 DNA AB 9969540 DNA AB 36 IU/ML 09/17/2013 RA FACTOR [id number] RA FAC TOR <20.0 IU/ML 09/16/2013 SM MUSC AB 0630814 SM MU SC AB <1:20 09/16/2013 CARDIO G/M 7063120 CARDI O IGG 1.7 GPLU 09/16/2013 CARDIO G/M 7565832 CARDI O IGM 4.8 MPLU 09/16/2013 ALENA SCR [id number] ALENA SCR <1:80 09/16/2013 CRP 9493613 CRP 1.1 MG/DL 09/15/2013 ESR 6827949 ESR 22 MM/HR 09/15/2013 CBC 9295437 WBC 5.5 10e9/L 04/26/2013 CBC 2557416 RBC 4.89 10e12/L 04/26/2013 CBC 7886721 HGB 12.8 g/dL 04/26/2013 CBC 1953870 HCT DET 39.5 % 04/26/2013 CBC 4374956 MCV 80.8 fL 04/26/2013 CBC 9119747 MCH 26.2 pg 04/26/2013 CBC 8917792 MCHC 32.4 g/dL 04/26/2013 CBC 8427483 PLT 299 10e9/L 04/26/2013 CBC 0611949 MPV 10.9 fL 04/26/2013 CBC 4027904 WAN % 59.0 % 04/26/2013 CBC 2180169 LY % 29.6 % 04/26/2013 CBC 7486922 MON % 9.1 % 04/26/2013 CBC 8924919 EOS % 1.8 % 04/26/2013 CBC 8619299 BASO % 0.5 % 04/26/2013 CBC 7936574 RDW 13.9 % 04/26/2013 CBC 5293883 ABS WAN 3.25 10e9/L 04/26/2013 CBC 9334518 ABS LYMPH 1.63 10e9/L 04/26/2013 CBC 9761958 ABS MONO 0.50 10e9/L 04/26/2013 CBC 2330357 ABS EOS 0.10 10e9/L 04/26/2013 CBC 6883793 ABS BASO 0.03 10e9/L 04/26/2013 CBC 2590735 RDW-SD 39.9 fL 04/26/2013 URINALYSIS NONAUTO W/O SCOPE 17035 Specific [place] 1.020 DateTime(Free Text in Aprima) URINALYSIS NONAUTO W/O SCOPE 22408 PH 6.0 DateTime(Free Rik t in Aprima) URINALYSIS NONAUTO W/O SCOPE 07262 GLUCOSE neg DateTime(Free Rik t in Aprima) URINALYSIS NONAUTO W/O SCOPE 67803 Protein neg DateTime(Free Rik t in Aprima) URINALYSIS NONAUTO W/O SCOPE 16080 Blood neg DateTime(Free Rik t in Aprima) URINALYSIS NONAUTO W/O SCOPE 90435 Bilirubin neg DateTime(Free Rik t in Aprima) URINALYSIS NONAUTO W/O SCOPE 25255 Ketones neg DateTime(Free Rik t in Aprima) URINALYSIS NONAUTO W/O SCOPE 89137 Urobilinogen neg DateTime(Free Text in Aprima) URINALYSIS NONAUTO W/O SCOPE 04265 Nitrite neg DateTime(Free Rik t in Aprima) URINALYSIS NONAUTO W/O SCOPE 72393 Leukocytes 1+ DateTime(Free Text in Junima) Review of Systems System Result Effective Dates Constitutional No recent illness 04/20/2018 Constitutional No [...] No alteration of consciousness 07/22/2016 Psychiatric anxiety 051 08/2016 Psychiatric depression 0 07/22/2016 Endocrine No dry [...] 03/06/2016 Musculoskeletal joint complaint 03/06/2016 Psychiatric anxiety /11/2015 Psychiatric depression 1 05/07/2015 Ears/Nose/Throat/Neck headache 03/06/2016 [...] Result Effective Dates Notes Full Exam - Dermatology Constitutional general appearance [...] clear 08/16/2013 None Full Exam - General 1995 Eyes conjunctiva/eyelids Overall: cornea clear 08/16/2013 None [...] accomodation 06/06/2013 None Full Exam - General 1995 Eyes conjunctiva/eyelids Overall: conjunctiva clear 06/06/2013 None Full Exam - General 1995 Eyes conjunctiva/eyelids Overall: eyelids normal 06/06/2013 None [...] None Full Exam - General 1995 Ears/Nose/Throat lips/teeth/gingiva Overall: benign lips 04/14/2013 None [...] Date URINALYSIS NONAUTO W /O SCOPE CPT-4: 76416 11/02/2017 OCCULT BLOOD FECES CPT- 4: 56827 12/08/2016 IMMUNIZATION ADMIN CPT- 4: 15797 12/07/2015 FLU VACC 4 AMBER 3 YRS PLUS IM SNOMED CT: 01978726 CPT-4: 83511 12/07/2015 URINALYSIS NONAUTO W /O SCOPE CPT-4: 49164 08/17/2015 CHEM 14 (COMPREHEN M ETABOLIC PANEL) CPT-4: 86855 10/06/2013 VIT D TOTL (VITAMIN D 25 HYDROXY) CPT-4: 45643 10/06/2013 CRP (C-REACTIVE PROT EIN) CPT-4: 75715 09/15/2013 ESR (RBC SED RATE AU TOMATED) CPT-4: 27780 09/15/2013 ROUTINE VENIPUNCTURE CPT-4: 28866 09/15/2013 URINALYSIS NONAUTO W /O SCOPE CPT-4: 93415 08/16/2013 C URINE RT CPT-4: 5998039 08/16/2013 C URINE RT (URINE CU LTURE/COLONY COUNT) CPT-4: 91781 08/16/2013 ROUTINE VENIPUNCTURE CPT-4: 91630 04/26/2013 Vital Signs Date Vital 04/22/2018 Heigh t: Weight: 04/20/2018 Blood Pressure 1: 150/90 Code: 8480-6 Heart Rate 1: 104 bpm Height: SpO2: 95% Weight: 11/02/2017 Blood Pressure 1: 130/76 Code: 8480-6 BMI: 37.6 Code: 04969-4 Heart Rate 1: 68 bpm Height: 5'5" SpO2: 98% Weight: 226 lbs 10/13/2017 Blood Pressure 1: 140/86 Code: 8480-6 BMI: 37.4 Code: 26945-3 Heart Rate 1: 78 bpm Height: 5'5" SpO2: 98% Weight: 225 lbs 07/20/2017 Blood Pressure 1: 128/80 Code: 8480-6 BMI: 39.1 Code: 08758-2 Heart Rate 1: 75 bpm Height: 5'5" SpO2: 98% Weight: 235 lbs 06/09/2017 Blood Pressure 1: 150/92 Code: 8480-6 BMI: 39.1 Code: 07486-8 Heart Rate 1: 106 bpm Height: 5'5" SpO2: 98% Weight: 235 lbs 05/12/2017 Blood Pressure 1: 144/68 Code: 8480-6 BMI: 38.9 Code: 88532-0 Heart Rate 1: 89 bpm Height: 5'5" SpO2: 98% Weight: 234 lbs 12/01/2016 Blood Pressure 1: 140/88 Code: 8480-6 BMI: 39.6 Code: 20202-4 Heart Rate 1: 101 bpm Height: 5'5" SpO2: 97% Weight: 238 lbs 08/05/2016 Blood Pressure 1: 134/82 Code: 8480-6 Heart Rate 1: 113 bpm Height: 5'5" SpO2: 98% 07/22/2016 Blood Pressure 1: 142/84 Code: 8480-6 BMI: 39.6 Code: 41348-5 Heart Rate 1: 103 bpm Height: 5'5" SpO2: 97% Weight: 238 lbs 03/06/2016 Blood Pressure 1: 138/86 Code: 8480-6 Heart Rate 1: 100 bpm SpO2: 96% Weight: 246 lbs 12/07/2015 Blood Pressure 1: 140/78 Code: 8480-6 BMI: 40.8 Code: 78574-2 Heart Rate 1: 97 bpm Height: 5'6" SpO2: 98% Weight: 250 lbs 11/09/2015 Blood Pressure 1: 118/84 Code: 8480-6 BMI: 40.7 Code: 38378-3 Heart Rate 1: 85 bpm Height: 5'6" SpO2: 98% Weight: 249 lbs 08/17/2015 Blood Pressure 1: 122/82 Code: 8480-6 BMI: 39.4 Code: 68820-3 Heart Rate 1: 86 bpm Height: 5'6" SpO2: 95% Weight: 241 lbs 07/24/2015 Blood Pressure 1: 118/76 Code: 8480-6 BMI: 39.9 Code: 28827-3 Heart Rate 1: 97 bpm Height: 5'6" SpO2: 96% Weight: 244 lbs 07/16/2015 Blood Pressure 1: 158/80 Code: 8480-6 Blood Pressure 1: 120/86 Code: 8480-6 Heart Rate 1: 105 bpm Height: 5'6" SpO2: 98% Weight: 06/12/2015 Blood Pressure 1: 128/82 Code: 8480-6 BMI: 39.9 Code: 71557-6 Heart Rate 1: 89 bpm Height: 5'6" SpO2: 98% Weight: 244 lbs 03/08/2015 Blood Pressure 1: 130/86 Code: 8480-6 Heart Rate 1: 98 bpm Height: 5'6" SpO2: 97% Weight: 12/29/2014 Blood Pressure 1: 138/88 Code: 8480-6 BMI: 39.2 Code: 56197-5 Heart Rate 1: 109 bpm Height: 5'6" SpO2: 97% Weight: 240 lbs 11/17/2014 Blood Pressure 1: 170/98 Code: 8480-6 BMI: 39.7 Code: 19635-3 Heart Rate 1: 92 bpm Height: 5'6" SpO2: 98% Weight: 243 lbs 05/16/2014 Blood Pressure 1: 130/82 Code: 8480-6 BMI: 39.2 Code: 61635-2 Heart Rate 1: 88 bpm Height: 5'6" Weight: 240 lbs 04/04/2014 Blood Pressure 1: 146/92 Code: 8480-6 Blood Pressure 2: 136/86 Code: 8480-6 BMI: 39.9 Code: 83243-9 Heart Rate 1: 68 bpm Height: 5'6" Weight: 244 lbs 12/01/2013 Blood Pressure 1: 142/80 Code: 8480-6 BMI: 38.4 Code: 91638-5 Heart Rate 1: 80 bpm Height: 5'6" Weight: 235 lbs 10/10/2013 Blood Pressure 1: 128/88 Code: 8480-6 BMI: 38.7 Code: 77114-5 Heart Rate 1: 88 bpm Height: 5'6" Weight: 237 lbs 09/15/2013 Blood Pressure 1: 112/74 Code: 8480-6 BMI: 39.0 Code: 61338-8 Heart Rate 1: 80 bpm Height: 5'6" Weight: 239 lbs 08/16/2013 Blood Pressure 1: 124/64 Code: 8480-6 BMI: 39.0 Code: 36723-9 Heart Rate 1: 88 bpm Height: 5'6" Weight: 239 lbs 06/06/2013 Blood Pressure 1: 120/72 Code: 8480-6 BMI: 37.9 Code: 93466-8 Heart Rate 1: 84 bpm Height: 5'6" Weight: 232 lbs 04/26/2013 Blood Pressure 1: 148/86 Code: 8480-6 BMI: 37.7 Code: 86741-4 Heart Rate 1: 84 bpm Height: 5'6" Weight: 231 lbs 04/14/2013 Blood Pressure 1: 148/92 Code: 8480-6 BMI: 38.2 Code: 05613-6 Heart Rate 1: 88 bpm Height: 5'6" Respiratory Rate: 16 bpm Weight: 234 lbs Functional Status No Functional Status data History of Present Illness Symptom Name Status Resu lt Effective Date Notes Quality acute 04/22/2018 None Onset and Resolution [...] Encounters Encounter Performer Loca tion Codes Date ([id number]) Ganesh coats no charge Diagnosis: Insect bite (nonvenomous), left lower leg, subsequent encounter[ICD10: S80.862D] Katy Manzanares MD, [facility] CPT-4: 62461 04/22/2018 ([id number]) 14932 EST. P ATIENT, LEVEL III Diagnosis: Insect bite (nonvenomous), left lower leg, initial encounter[ICD10: S80.862A] Katy Manzanares MD, [facility] CPT-4: 62697 04/20/2018 04431 EST. PATIENT, LEVEL II Diagnosis: Dysuria[ICD10: R30.0] Diagnosis: Other specified conditions associated with female genital organs and menstrual cycle[ICD10: N94.89] Katy Manzanares MD, [facility] CPT-4: 69003 11/02/2017 ([id number]) 80576 EST. 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 P ATIENT, LEVEL III Diagnosis: Essential (primary) hypertension[ICD10: I10] [facility] CPT-4: 19044 07/20/2017 ([id number]) 70600 EST. P ATIENT, LEVEL III Diagnosis: Essential (primary) hypertension[ICD10: I10] Katy Manzanares MD, [facility] CPT-4: 40260 06/09/2017 ([id number]) 89892 EST. 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 P ATIENT, LEVEL IV Diagnosis: Essential [...] R50.9] [facility] CPT- 4: 62738 12/01/2016 ([id number]) 42772 EST. P ATIENT, LEVEL III Diagnosis: Impaired fasting glucose[ICD10: R73.01] Diagnosis: Low back pain[ICD10: M54.5] Diagnosis: Generalized anxiety disorder[ICD10: F41.1] [facility] CPT-4: 71759 08/05/2016 ([id number]) 18871 EST. P ATIENT, LEVEL III Diagnosis: Essential (primary) hypertension[ICD10: I10] Diagnosis: Radiculopathy, lumbar region[ICD10: M54.16] [facility] CPT-4: 94048 07/22/2016 ([id number]) Miscellaneou s no charge Diagnosis: Dysuria[ICD10: R30.0] Ally Manzanares MD, [facility] CPT-4: 00533 06/12/2016 ([id number]) 56300 EST. P ATIENT, LEVEL IV Diagnosis: Type 2 diabetes mellitus without complications[ICD10: E11.9] Diagnosis: Vitamin D deficiency, unspecified[ICD10: E55.9] Diagnosis: Generalized anxiety disorder[ICD10: F41.1] Diagnosis: Essential (primary) hypertension[ICD10: I10] Diagnosis: Radiculopathy, cervical region[ICD10: M54.12] Diagnosis: Cardiac murmur, unspecified[ICD10: R01.1] Katy Manzanares MD, [facility] CPT-4: 17580 03/06/2016 ([id number]) 35192 EST. P ATIENT, LEVEL III Diagnosis: Generalized anxiety disorder[ICD10: F41.1] Diagnosis: Major depressive disorder, recurrent, in partial remission[ICD10: F33.41] Katy Manzanares MD, [facility] CPT-4: 01163 12/07/2015 ([id number]) 75838 EST. P ATIENT, LEVEL IV Diagnosis: Essential (primary) hypertension[ICD10: I10] Diagnosis: Generalized anxiety disorder[ICD10: F41.1] Diagnosis: Other obesity due to excess calories[ICD10: E66.09] [facility] CPT-4: 03289 11/09/2015 ([id number]) 38683 EST. P ATIENT, LEVEL III Diagnosis: Urinary tract infection, site not specified[ICD10: N39.0] Katy Manzanares MD, [facility] CPT-4: 79348 08/17/2015 ([id number]) 44612 EST. P ATIENT, LEVEL III Diagnosis: Generalized anxiety disorder[ICD10: F41.1] Diagnosis: Major depressive disorder, recurrent, moderate[ICD10: F33.1] Katy Manzanares MD, [facility] CPT-4: 64142 07/24/2015 ([id number]) 80427 EST. P ATIENT, LEVEL IV Diagnosis: Myalgia[ICD10: M79.1] Diagnosis: Low back pain[ICD10: M54.5] Diagnosis: Cervicalgia[ICD10: M54.2] Diagnosis: Essential (primary) hypertension[ICD10: I10] Diagnosis: Vitamin D deficiency, unspecified[ICD10: E55.9] Diagnosis: Generalized anxiety disorder[ICD10: F41.1] Katy Manzanares MD, [facility] CPT-4: 67799 07/16/2015 ([id number]) 78190 EST. P ATIENT, LEVEL IV Diagnosis: Cervicalgia[ICD10: M54.2] Diagnosis: Essential (primary) hypertension[ICD10: I10] Diagnosis: Low back pain[ICD10: M54.5] Diagnosis: Radiculopathy, cervical region[ICD10: M54.12] Katy Manzanares MD, [facility] CPT-4: 22463 06/12/2015 49414 EST. PATIENT, LEVEL III Diagnosis: Sacroiliitis, not elsewhere classified[ICD10: M46.1] Diagnosis: Low back pain[ICD10: M54.5] Diagnosis: Pain in left hip[ICD10: M25.552] Diagnosis: Pain in right hip[ICD10: M25.551] Samantha Manzanares MD, [facility] CPT-4: 21526 03/08/2015 66463 EST. 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 P ATIENT, LEVEL IV Diagnosis: ESSENTIAL HYPERTENSION[ICD9: 401.9] Diagnosis: Anxiety[ICD9: 300.00] Diagnosis: Depression[ICD9: 311] [facility] CPT-4: 18859 11/17/2014 ([id number]) 41984 EST. P ATIENT, LEVEL IV Diagnosis: Anxiety[ICD9: 300.00] Diagnosis: Depression[ICD9: 311] Diagnosis: DIABETES TYPE II[ICD9: 250.00] Diagnosis: Vitamin D deficiency[ICD9: 268.9] Diagnosis: ESSENTIAL HYPERTENSION[ICD9: 401.9] Diagnosis: ABNORMAL WEIGHT GAIN[ICD9: 783.1] Katy Manzanares MD, [facility] CPT- 4: 83354 05/16/2014 ([id number]) 21058 EST. P ATIENT, LEVEL IV Diagnosis: ESSENTIAL HYPERTENSION[ICD9: 401.9] Diagnosis: Anxiety[ICD9: 300.00] Diagnosis: Depression[ICD9: 311] Katy Manzanares MD, [facility] CPT-4: 22706 04/04/2014 ([id number]) 67213 EST. P ATIENT, LEVEL IV Diagnosis: Diarrhea[ICD9: 787.91] Diagnosis: Epigastric pain[ICD9: 789.06] Diagnosis: ESOPHAGEAL REFLUX[ICD9: 530.81] Diagnosis: Blood in stool[ICD9: 578.1] Katy Manzanares MD, [facility] CPT- 4: 48385 12/01/2013 ([id number]) 22373 EST. P ATIENT, LEVEL IV Diagnosis: Vitamin D deficiency[ICD9: 268.9] Diagnosis: DIABETES TYPE II[ICD9: 250.00] Diagnosis: Depression[ICD9: 311] Diagnosis: Insomnia[ICD9: 780.52] Ally Manzanares MD, [facility] CPT-4: 04774 10/10/2013 ([id number]) PREV VISIT E ST AGE 40-64 Diagnosis: Well woman exam with routine gynecological exam[ICD9: V72.31] Diagnosis: JOINT PAIN-UNSPEC[ICD9: 719.40] Diagnosis: Nasal septal ulcer[ICD9: 478.19] Diagnosis: Swelling of extremity[ICD9: 729.81] Diagnosis: Pleuritic chest pain[ICD9: 786.52] Katy Manzanares MD, [facility] CPT-4: 03759 09/15/2013 ([id number]) 21025 EST. P ATIENT, LEVEL IV Diagnosis: DM W/O COMPLICATION TYPE II, UNCONTROLLED[SNOMED: 90261889] Diagnosis: Urinary tract infection[ICD9: 599.0] Diagnosis: DEPRESSIVE DISORDER NEC[ICD9: 311] Diagnosis: Anxiety[ICD9: 300.00] Diagnosis: Insomnia[ICD9: 780.52] Diagnosis: ANEMIA[ICD9: 285.9] Katy Manzanares MD, [facility] CPT-4: 69672 08/16/2013 ([id number]) 03921 EST. P ATIENT, LEVEL III Diagnosis: DM w/o complication type II, uncontrolled[SNOMED: 31446676] Ally Manzanares MD, [facility] CPT-4: 57706 06/06/2013 ([id number]) 48100 EST. P ATIENT, LEVEL III Diagnosis: DIABETES TYPE II[SNOMED: 717895097] Ally Manzanares MD, [facility] CPT- 4: 43976 04/26/2013 ([id number]) OFFICE VISI T, NEW - LEVEL 4 Diagnosis: Elevated blood pressure[ICD9: 796.2] Diagnosis: Depression[ICD9: 311] Diagnosis: Elevated alkaline phosphatase level[ICD9: 790.5] Diagnosis: Elevated glucose[ICD9: 790.29] Ally Manzanares MD, [facility] CPT-4: 61655 04/14/2013 Plan of Care Planned Activity Notes C odes Status Date Visit Plan: Spdier bite -much impro itzel-return next Thursday for follow up -continue wound care as directed 04/22/2018 Appointment: Katy Do WPtel: [address] [place], [place] [phone] (30 min) Complex 04/22/2018 Patient Education: Patient Medication Summary Completed 04/22/2018 Visit Plan: Cellulitis - start oral antibiotics as directed, return to clinic for wound check, call for acute change in symptoms, worsening redness, warmth, discharge. 04/20/2018 Appointment: Katy Do WPtel: [address] [place], [place] [phone] (10 min) Simple 04/20/2018 Patient Education: Patient Medication Summary Completed 04/20/2018 Visit Plan: Erythema of labia- dysu vonda -UA negative-yeast infection vs vulvar lichen sclerosis -rx sent to patient's pharmacy and instructed on use -call if symptoms do not resolve of if any worse. Patient verbalized understanding of plan. 11/02/2017 Appointment: Katy Do WPtel: [address] [place], [place] [phone] (15 min) Moderate 11/02/2017 Patient Education: Patient [...] current medications. 10/13/2017 Appointment: Katy Do WPtel: [address] [place], [place] [phone] (30 min) Complex 10/13/2017 Patient Education: Patient Medication Summary Completed 10/13/2017 Appointment: Katy Do WPtel: [address] [place], [place] [phone] (15 min) Moderate 08/20/2017 Visit Plan: Hypertension - well con trolled but bystolic is not covered-will switch to metoprolol- continue other medications, continue with no added salt diet. Pt has been encouraged to exercise daily. The pt has been advised to call the office if there are any acute concerns about change in blood pressure readings at home. 07/20/2017 Appointment: Katy Do WPtel: [address] [place], [place] [phone] (15 min) Moderate 07/20/2017 Patient Education: Patient Medication Summary Completed 07/20/2017 Appointment: Katy Do WPtel: [address] [place], [place] [phone] (15 min) Moderate 07/14/2017 Visit Plan: Hypertension [...] iron supplement 05/12/2017 Appointment: Katy Do WPtel: [address] [place], [place] [phone] (30 min) [facility] 05/12/2017 Patient Education: Patient Medication Summary Completed 05/12/2017 Patient Education: Patient Medication Summary Completed 05/12/2017 Care Plan: SCREENINGMAMMOGRAPHYDIGITAL [facility] 67943-8 Pending 05/12/2017 Appointment: Lab Draw 12/08/2016 Patient [...] tick panel 12/01/2016 Appointment: Katy Do WPtel: [facility] [place] [phone] (30 min) Complex 12/01/2016 Patient Education: Patient Medication Summary Completed 12/01/2016 Patient Education: Obesity Completed 12/01/2016 Care Plan: Lymes Disease Antibobies Igg/ Igm Pending 12/01/2016 Visit Plan: Elevated glucose-check Hgb A1C Low back pain-will write letter on patient's behalf for insurance precertification Byhsoej-zfuevaxhrf-oyos controlled-no changes 08/05/2016 Appointment: Katy Do WPtel: [phone] (30 min) Complex 08/05/2016 Patient Education: [...] next month. 07/22/2016 Appointment: Katy Do WPtel: [phone] [phone] (15 min) Moderate 07/22/2016 [...] murmur-schedule Echo 03/06/2016 Appointment: Katy Do WPtel: [phone] (30 min) Complex 03/06/2016 Patient Education: Patient [...] current medications. 12/07/2015 Appointment: Katy Do WPtel: [phone] (30 min) Complex 12/07/2015 Patient Education: [...] weight check. 11/09/2015 Appointment: Katy Do WPtel: [phone] (30 min) Complex 11/09/2015 Patient Education: Patient Medication Summary Completed 11/09/2015 Patient Education: Obesity Completed 11/09/2015 Care Plan: BMI Above normal followup LOLI F-MGMT EDUC & TRAIN 1 PT Pending 11/09/2015 Appointment: Katy Do WPtel: [address] [place], [place] [phone] (30 min) Complex 11/08/2015 [phone] (15 min) Moderate 08/23/2015 Visit Plan: Urinary [...] level 07/24/2015 Appointment: [phone] (30 min) Complex 07/24/2015 Patient Education: Patient [...] in blood pressure readings at home. Neck dsik-kaxdjevwmgxoj-bmqcw to Dr Mckee for evaluation-patient has been [...] min) Moderate 09/04/2014 Appointment: Katy Do WPtel: [address] [place], [place] [phone] Follow up 07/07/2014 Visit Plan: Anxiety and [...] Completed 05/16/2014 Appointment: Katy Do WPtel: [phone] Follow up 05/09/2014 Visit Plan: Hypertension - [...] this patient. 04/04/2014 Appointment: Katy Do WPtel: [phone] Follow up 04/04/2014 Patient Education: Patient Medication [...] 12/01/2013 Care Plan: Referral Order SNOMED-CT : [id number] Ordered 12/01/2013 Visit Plan: Diabetes Mellitus - [...] insomnia. 10/10/2013 Appointment: Ally Manzanares WPtel: [address] [place], [place] [phone] Follow up 10/10/2013 Patient Education: Patient Medication Summary Completed 10/10/2013 Appointment: Ally Manzanares WPtel: [address] [place], [place] [phone] [place] Lab Draw 10/06/2013 Patient Education: Patient Medication Summary Completed 10/06/2013 Appointment: Ally Manzanares WPtel: [address] [place], [place] [phone] [place] Follow up 10/04/2013 Visit Plan: Well [...] or prn. Joint pain-pleuritic chest pain-swelling of ocsx-xyelxlz-talsymw for autoimmune disease such as lupus-plan to check labs and proceed as indicated. Instructed patient we will call her with results of labs. 09/15/2013 Appointment: Katy Do WPtel: [address] [place], [place] [phone] [place] Pap Only 09/15/2013 Patient Education: Patient [...] iron panel 08/16/2013 Appointment: Katy Do WPtel: [address] [place], [place] [phone] Follow up 08/16/2013 Patient Education: Patient Medication Summary Completed 08/16/2013 Care Plan: C URINE RT Pending 08/16/2013 Appointment: Katy Do WPtel: [address] [place], [place] [phone] [place] Follow up 08/09/2013 Appointment: Ally Manzanares WPtel: [address] [place], [place] [phone] [place] Follow up 08/08/2013 Visit Plan: Diabetes [...] control. 06/06/2013 Appointment: Ally Manzanares WPtel: [address] [place], [place] [phone] Follow up 06/06/2013 Patient Education: Patient Medication Summary Completed 06/06/2013 Appointment: Ally Manzanares WPtel: [address] [place], [place] [phone] Follow up 05/12/2013 Visit Plan: Diabetes Mellitus [...] glucose control. 04/26/2013 Appointment: Katy Do WPtel: [phone] Diabetic education 04/26/2013 Patient Education: Patient Medication [...] and [id number]. 04/14/2013 Appointment: Ally Manzanares WPtel: [address] [place], [place] [phone] New Patient 04/14/2013 Patient Education: Patient Medication Summary Completed 04/14/2013 Appointment: Ally Manzanares WPtel: [address] [place], [place] [phone] New Patient 04/05/2013 Referral: Dr Trujillo Referral Initiated Instructions Comment DECREASE LEXAPRO TO EVERY OTHER DAY X [...] worse. Patient verbalized understanding of plan. . Spdier bite -much improved-return next Thursday for follow up -continue wound care as directed CHECK LABS schedule ECHO . Hypertension - [...] been appropriately prescribed for this patient. . Hypertension - wel l controlled - [...] in blood pressure readings at home. Neck [id number] to Dr Mckee for evaluation-patient has been [...] see Dr Mckee for her neck first. INCREASE METFORMIN T O A FULL TAB [...] of plan. HOLD METFORMIN X 1 W RESIGHINI RESTART PANTOPRAZOLE DAILY CONTINUE CARAFATE BEFORE MEALS [...] to allow for greater blood glucose control. STOP BYSTOLIC-START METOPROLOL . Hypertension - well [...] or prn. Joint pain-pleuritic chest pain-swelling of cnln-xmnetld-ktdoveh for autoimmune disease such as lupus-plan to [...] prescribed for this patient. SAMPLES OF FETZIMA bystolic 5mg daily - monitor blood pressure [...] pt is to call for acute concerns. trazodone is to help with insomnia and to help with anxiety and depression. - hold trazodone for now lexapro is for anxiety and depression - increase to two pills daily keep metformin at current dose. medicinal plant picker RX for vitamin D 94259 units weekly. . Diabetes Mellitus - controlled [...] keep trazodone for PRN use for insomnia. pt needs to take VIT OSPINA D [...] pt is to call for acute concerns. [phone] Samuels and call Sandee to medicinal plant picker a copy . Elevated glucose-check Hgb A1C Low back pain-will write letter on patient's behalf for insurance precertification Nyysjua-yifzpwcdug-eouw controlled-no changes . Hypertension - wel l [...]
--- OUTSIDE RECORDS SUMMARY | 2019-03-04 02:51 | XMS REPORT | CCD ---
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[employer], [employer]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 09/15/2013 Marital status Unknown M arried 04/14/[address]: [id number] Never smoker 04/14/2013 Alcohol history Unknown occasionally [...] Date Stop Date Sta tus Fill Instructions lisinopril 20 mg-hyd rochlorothiazide 12.5 mg tablet RxNorm: 020857 TAKE 1 TABLET BY MOUTH ONCE DAILY 05/03/2018 No Stop Date Active Bactrim DS 800 mg-16 0 mg tablet RxNorm: 571177 1 Tablet(s) PO BID 04/20/2018 04/26/2018 Inactive mupirocin 2 % topica l ointment RxNorm: 080303 1 Application TOP BID 04/20/2018 04/29/2018 Inactive Diflucan 150 mg tablet RxNorm: 349471 1 Tablet(s) PO daily 11/02/2017 11/08/2017 Inactive Wellbutrin XL 300 mg 24 hr tablet, extended release RxNorm: 835883 TAKE 1 TABLET BY MOUTH ONCE DAILY 09/07/2017 No Stop Date Active metoprolol succinate ER 50 mg tablet,extended release 24 hr RxNorm: 091383 1 Tablet(s) PO daily 07/20/2017 01/15/2018 Inactive amitriptyline 25 mg tablet RxNorm: 281205 Tablet(s) 2 TAB(S) PO HS 07/09/2017 10/06/2017 Inactive Bystolic 5 mg tablet RxNorm: 202818 1 Tablet(s) PO daily 06/09/2017 07/08/2017 Inactive Vitamin D2 50,000 un it capsule RxNorm: 777166 1 Capsule(s) PO QW 05/12/2017 08/09/2017 Inactive metformin 500 mg tablet RxNorm: 302250 1/2 Tablet(s) PO QPM 05/12/2017 11/07/2017 Inactive metformin 500 mg tablet RxNorm: 834096 1/2 Tablet(s) PO QPM 05/12/2017 05/11/2017 Inactive lisinopril 20 mg-hyd rochlorothiazide 12.5 mg tablet RxNorm: 815062 1 TABLET(S) PO DAILY 04/23/2017 10/19/2017 Inactive Wellbutrin XL 300 mg 24 hr tablet, extended release RxNorm: 622209 1 Tablet(s) PO daily 1 TABLET(S) PO DAILY 12/01/2016 05/29/2017 Inactive Wellbutrin XL 150 mg 24 hr tablet, extended release RxNorm: 589551 1 TABLET(S) PO DAILY 10/07/2016 11/30/2016 Inactive amitriptyline 25 mg tablet RxNorm: 162384 2 TAB(S) PO HS,INSTR: FOR PAIN AND SLEEP 09/24/2016 07/08/2017 In active amitriptyline 25 mg tablet RxNorm: 724038 2 Tablet(s) PO QHS 09/23/2016 09/23/2016 Inactive meloxicam 15 mg tablet RxNorm: 559044 1 TABLET(S) PO DAILY 09/08/2016 12/06/[address] on hold until pt needs it: she is going to take (2) 7.5mg until gone cetirizine 10 mg tablet RxNorm: 1184731 1 Tablet(s) PO daily 07/22/2016 No Stop Date Active lisinopril 20 mg-hyd rochlorothiazide 12.5 mg tablet RxNorm: 218120 1 TABLET(S) PO DAILY 06/20/2016 12/16/2016 Inactive Wellbutrin XL 150 mg 24 hr tablet, extended release RxNorm: 666842 1 TABLET(S) PO DAILY 05/12/2016 08/09/2016 Inactive Victoza 3-Jean 0.6 mg /0.1 mL (18 mg/3 mL) subcutaneous pen injector RxNorm: 747114 0.6 Milligram(s) SQ daily 03/21/2016 07/21/2016 Inactive NovoFine Plus 32 gau ge x 1/6" needle RxNorm: 1 Miscellaneous daily 03/21/2016 07/21/2016 Inactive NovoFine Plus 32 gau ge x 1/6" needle RxNorm: 1 Miscellaneous daily 03/21/2016 03/20/2016 Inactive Victoza 3-Jean 0.6 mg /0.1 mL (18 mg/3 mL) subcutaneous pen injector RxNorm: 636021 0.6 Milligram(s) SQ daily 03/21/2016 03/20/2016 Inactive Vitamin D2 50,000 un it capsule RxNorm: 436101 1 Capsule(s) PO QW 03/20/2016 06/17/2016 Inactive meloxicam 15 mg tablet RxNorm: 885459 1 Tablet(s) PO daily 03/20/2016 07/17/[address] on hold until pt needs it: she is going to take (2) 7.5mg until gone lisinopril 20 mg-hyd rochlorothiazide 12.5 mg tablet RxNorm: 984043 1 TABLET(S) PO DAILY 02/19/2016 05/18/2016 Inactive Wellbutrin XL 150 mg 24 hr tablet, extended release RxNorm: 039854 1 Tablet(s) PO daily 11/09/2015 03/07/2016 Inactive gabapentin 800 mg ta blet RxNorm: 141813 1 Tablet(s) PO TID 11/09/2015 06/08/2017 Inactive Lexapro 10 mg tablet RxNorm: 639243 1 TABLET(S) PO QPM 11/05/2015 11/08/2015 Inactive lisinopril 20 mg-hyd rochlorothiazide 12.5 mg tablet RxNorm: 588114 1 TABLET(S) PO DAILY 10/18/2015 01/15/2016 Inactive Cipro 500 mg tablet RxNorm: 416594 1 Tablet(s) PO BID 08/17/2015 08/23/2015 Inactive Lexapro 10 mg tablet RxNorm: 387938 1 Tablet(s) PO QPM 07/24/2015 10/21/2015 Inactive Vitamin D2 50,000 un it capsule RxNorm: 667994 1 Capsule(s) PO QW 07/24/2015 10/21/2015 Inactive gabapentin 300 mg ca psule RxNorm: 804284 2 Capsule(s) PO TID 07/16/2015 11/08/2015 Inactive lisinopril 20 mg-hyd rochlorothiazide 12.5 mg tablet RxNorm: 573554 1 TABLET(S) PO DAILY 04/09/2015 07/07/2015 Inactive naproxen 250 mg tablet RxNorm: 608828 1-2 Tablet(s) PO BID as needed for pain 03/08/2015 No Stop Date Active Fetzima 40 mg capsul e,extended release RxNorm: 7064936 1 Capsule(s) PO adri y 12/22/2014 12/21/2014 In active Fetzima 40 mg capsul e,extended release RxNorm: 6823756 1 Capsule(s) PO adri y 12/22/2014 06/11/2015 In active Xanax 0.5 mg tablet RxNorm: 050919 1 Tablet(s) TAKE 1 TABLET BY MOUTH TWICE DAILY NEEDED FOR ANXIETY 11/17/2014 01/15/2015 Inactive lisinopril 20 mg-hyd rochlorothiazide 12.5 mg tablet RxNorm: 702292 1 Tablet(s) PO daily 11/17/2014 03/16/2015 Inactive Fetzima 20 mg capsul e,extended release RxNorm: 6392024 1 Capsule(s) PO adri y 11/17/2014 12/22/2014 In active Xanax 0.5 mg tablet RxNorm: 190918 1 Tablet(s) TAKE 1 TABLET BY MOUTH TWICE DAILY NEEDED FOR ANXIETY 10/27/2014 11/16/2014 Inactive Xanax 0.5 mg tablet RxNorm: 730817 TAKE 1 TABLET BY MOUTH TWICE DAILY NE EDED FOR ANXIETY 08/25/2014 10/23/2014 Inactive Brintellix 10 mg tablet RxNorm: 4456071 1 Tablet(s) PO daily 07/04/2014 07/03/2014 Inactive Brintellix 10 mg tablet RxNorm: 0437002 1 Tablet(s) PO daily 07/04/2014 11/16/2014 Inactive Brintellix 10 mg tablet RxNorm: 1423785 1 Tablet(s) PO daily 06/09/2014 07/03/2014 Inactive Contrave 8 mg-90 mg tablet,extended release RxNorm: 8035509 2 Tablet(s) PO BID 06/09/2014 09/06/2014 In active 1 tab q am x 1 week, then 1 tab BID x 1 week, then 2 q am and 1 q pm x 1 week then 2 tabs BID thereafter Contrave 8 mg-90 mg tablet,extended release RxNorm: 3471642 2 Tablet(s) PO BID 06/09/2014 06/08/2014 In active 1 tab q am x 1 week, then 1 tab BID x 1 week, then 2 q am and 1 q pm x 1 week then 2 tabs BID thereafter metformin 500 mg tablet RxNorm: 731108 1/2 Tablet(s) PO BID 05/18/2014 09/14/2014 Inactive Brintellix 10 mg tablet RxNorm: 9533010 2 Tablet(s) PO daily 05/16/2014 06/08/2014 Inactive Xanax 0.5 mg tablet RxNorm: 968453 1 Tablet(s) PO BID PRN 04/06/2014 08/25/2014 Inactive Wellbutrin XL 150 mg 24 hr tablet, extended release RxNorm: 589275 1 Tablet(s) PO daily 04/04/2014 05/15/2014 Inactive [SAVINGS FOR UNINSURED PATIENTS -- BIN:0 13620, PCN: [id number], Group: [id number], ID# [id number], Process claim through [employer], for questions: . THIS IS NOT INSURANCE.] pantoprazole 40 mg t ablet,delayed release RxNorm: 350563 1 Tablet(s) PO daily 12/01/2013 03/30/2014 In active Vitamin D3 2,000 uni t tablet RxNorm: 869666 1 Tablet(s) PO daily 10/10/2013 No Stop Date Active Vitamin D2 50,000 un it capsule RxNorm: 377783 1 Capsule(s) PO QW 10/10/2013 11/16/2014 Inactive vitamin d 50,000 units weekly x 12 weeks then 5000 units daily thereafter escitalopram 20 mg t ablet RxNorm: 992477 1 Tablet(s) PO daily 10/10/2013 04/04/2014 Inactive trazodone 100 mg tablet RxNorm: 945681 1 TABLET(S) PO QHS 09/19/2013 01/16/2014 Inactive trazodone 100 mg tablet RxNorm: 020712 1 Tablet(s) PO QHS 08/16/2013 09/14/2013 Inactive metformin 500 mg tablet RxNorm: 858161 1 Tablet(s) PO BID 08/16/2013 04/03/2014 Inactive Diflucan 150 mg tablet RxNorm: 174380 1 Tablet(s) PO daily 08/16/2013 08/22/2013 Inactive metformin 500 mg tablet RxNorm: 499239 1/2 Tablet(s) PO BID 1/2 tab in the even ing x 1 week then 1/2 tab twice daily 04/26/2013 08/15/2013 Inactive Vitamin D2 50,000 un it capsule RxNorm: 323886 1 Capsule(s) PO QW 04/21/2013 10/09/2013 Inactive vitamin d 50,000 units weekly x 12 weeks then 5000 units daily thereafter Lexapro 10 mg tablet RxNorm: 487352 1 Tablet(s) PO daily 04/14/2013 10/09/2013 Inactive Slow Fe oral RxNorm: 27530 oral No Start Date Active tizanidine 2 mg tablet RxNorm: 309433 1 Tablet(s) PO TID No Start Date Active vitamin B complex ca psule RxNorm: 1 Capsule(s) PO daily No Start Date Active diclofenac 75 mg-mis oprostol 200 mcg tablet,immediate,delayed release RxNorm: 5778474 1 Tablet(s) PO BID No Start Date Active methocarbamol 500 mg tablet RxNorm: 915224 1 Tablet(s) PO TID No Start Date Active lisinopril 20 mg-hyd rochlorothiazide 12.5 mg tablet RxNorm: 814530 1 Tablet(s) PO daily No Start Date 11/16/2014 Inactive gabapentin 300 mg ca psule RxNorm: 441344 1 Capsule(s) PO TID No Start Date 07/15/2015 Inactive cetirizine 10 mg tablet RxNorm: 8664965 1 Tablet(s) PO daily No Start Date 03/05/2016 Inactive Vitamin D2 50,000 un it capsule RxNorm: 031626 1 Capsule(s) PO QW No Start Date 04/20/2013 Inactive pantoprazole 40 mg t ablet,delayed release RxNorm: 045402 1 Tablet(s) PO daily No Start Date 10/09/2013 Inactive amitriptyline 10 mg tablet RxNorm: 801295 1 Tablet(s) PO QHS No Start Date 09/22/2016 Inactive meloxicam 7.5 mg tablet RxNorm: 416290 1 Tablet(s) PO daily No Start Date 03/19/2016 Inactive ibuprofen 200 mg tablet RxNorm: 901366 3 Tablet(s) PO TID No Start Date 11/30/2013 Inactive Advair Diskus 250 mc g-50 mcg/dose powder for inhalation RxNorm: 1542403 2 INH daily No Start Date 07/23/2015 [...] DM W/O COMPLICATION TYPE II, UNCONTROLLED SNOMED: 21982268 ICD-9: 250.02 08/16/2013 Urinary tract infection ICD-9: [...] 24.3 pg 10/13/2017 Cbc With Differential Ord2 [place]% 10.1 % 10/13/2017 Cbc With Differential Ord2 [...] 1.71 K/ul 10/13/2017 Cbc With Differential Ord2 [place] ABS# 0.7 K/ul 10/13/2017 Cbc With Differential Ord2 Eos ABS# 0.1 K/ul 10/13/2017 Cbc With Differential Ord2 Baso ABS# 0.0 K/ul 10/13/2017 %Hba1C Nce009 % HbA1c 84822-0 6.3 % 10/13/2017 %Hba1C Lyz507 Gluc Ave 134 mg/dL 10/13/2017 Comp Metabolic Kif697 NA 144 mEq/L 10/13/2017 Comp Metabolic Jnx764 K 4.2 mEq/L 10/13/2017 Comp Metabolic Kje952 CL 110 mEq/L 10/13/2017 Comp Metabolic Xel876 CO2 25.0 mEq/L 10/13/2017 Comp Metabolic Ead465 AN ION GAP 13 10/13/2017 Comp Metabolic Euy571 GL UCOSE 99 mg/dL 10/13/2017 Comp Metabolic Cky214 Cr eat 0.6 mg/dL 10/13/2017 Comp Metabolic Dlw064 eG FR 116 ml/min/1.73m2 09/2017 Comp Metabolic Erm656 BUN 11 mg/dL 10/13/2017 Comp Metabolic Uqz077 B/ C Ratio 19.0 Ratio 10/13/2017 Comp Metabolic Shl858 CA LCIUM 9.1 mg/dL 10/13/2017 Comp Metabolic Jet357 AL K PHOS 134 U/L 10/13/2017 Comp Metabolic Kkc728 T(SGOT) 18 U/L 10/13/2017 Comp Metabolic Yud566 AL T(SGPT) 17 U/L 10/13/2017 Comp Metabolic Tyg433 BI LI T 0.4 mg/dL 10/13/2017 Comp Metabolic Yci609 AL BUMIN 4.0 g/dL 10/13/2017 Comp Metabolic Tgs957 TP RO 6.6 g/dL 10/13/2017 Comp Metabolic Szg426 GL OB 2.6 g/dL 10/13/2017 Comp Metabolic Uoz854 A/ G Ratio 1.5 Ratio 10/13/2017 Comp Metabolic Tvn595 Os mo 286 mOsmo 10/13/2017 Vitamin D 25 Oh Bmd1584 VITAMIN D, 25 HYDROXY 55.13 ng/mL 10/13/2017 I Fecal Occult Blood Nep2934 IFOB Negative 05/13/2017 B12 Hhy112 B12 427.00 pg/ml 05/12/2017 Tibc Ord40 Iron 35 ug/dl 05/12/2017 Tibc Ord40 UIBC 412 ug/dL 05/12/2017 Tibc Ord40 TIBC 447 ug/dL 05/12/2017 Tibc Ord40 Fe-%Sat 7.8 % 05/12/2017 Ferritin Ord22 FERRITIN 7.2 ng/mL 05/12/2017 Comp Metabolic Lor731 NA 142 mEq/L 05/12/2017 Comp Metabolic Xps132 K 4.0 mEq/L 05/12/2017 Comp Metabolic Kkg220 CL 106 mEq/L 05/12/2017 Comp Metabolic Gkj576 CO2 26.0 mEq/L 05/12/2017 Comp Metabolic Hjq870 AN ION GAP 14 05/12/2017 Comp Metabolic Scc631 GL UCOSE 137 mg/dL 05/12/2017 Comp Metabolic Bwu266 Cr eat 0.6 mg/dL 05/12/2017 Comp Metabolic Owg988 eG FR 116 ml/min/1.73m2 08/2017 Comp Metabolic Jfq773 BUN 9 mg/dL 05/12/2017 Comp Metabolic Qdn412 B/ C Ratio 15.5 Ratio 05/12/2017 Comp Metabolic Fqx550 CA LCIUM 8.8 mg/dL 05/12/2017 Comp Metabolic Zlp742 AL K PHOS 171 U/L 05/12/2017 Comp Metabolic Dlj750 T(SGOT) 18 U/L 05/12/2017 Comp Metabolic Fvz661 AL T(SGPT) 17 U/L 05/12/2017 Comp Metabolic Gus578 BI LI T 0.2 mg/dL 05/12/2017 Comp Metabolic Yqy120 AL BUMIN 3.9 g/dL 05/12/2017 Comp Metabolic Hnt676 TP RO 6.5 g/dL 05/12/2017 Comp Metabolic Rxk975 GL OB 2.6 g/dL 05/12/2017 Comp Metabolic Hsm780 A/ G Ratio 1.5 Ratio 05/12/2017 Comp Metabolic Sbi483 Os mo 284 mOsmo 05/12/2017 Iron Ord72 Iron 33 ug/dl 05/12/2017 Vitamin D 25 Oh Rva5559 VITAMIN D, 25 HYDROXY 31.02 ng/mL 05/12/2017 [...] 22.7 % 05/12/2017 Cbc With Differential Ord2 [place]% 8.1 % 05/12/2017 Cbc With Differential Ord2 MCH 22.0 pg 05/12/2017 Cbc With Differential Ord2 Eos% 2.5 % 05/12/2017 Cbc With Differential Ord2 MCHC 29.8 pg 05/12/2017 Cbc With Differential Ord2 PLT 374 K/ul 05/12/2017 Cbc With Differential Ord2 Baso% 0.6 % 05/12/2017 Cbc With Differential Ord2 RDW 16.6 % 05/12/2017 Cbc With Differential Ord2 Neut ABS# 4.47 K/ul 05/12/2017 Cbc With Differential Ord2 Lymph ABS# 1.54 K/ul 05/12/2017 Cbc With Differential Ord2 [place] ABS# 0.6 K/ul 05/12/2017 Cbc With Differential Ord2 Eos ABS# 0.2 K/ul 05/12/2017 Cbc With Differential Ord2 Baso ABS# 0.0 K/ul 05/12/2017 %Hba1C Axj141 % HbA1c 58925-1 6.6 % 05/12/2017 %Hba1C Ntg655 Gluc Ave 143 mg/dL 05/12/2017 Tsh Ord6 TSH (3rd IS) 3.18 uIU/mL 05/12/2017 Lymes Disease Total Antibodies With Western Blot Refle x [id number] B. BURGDORFERI, IGG/IGM 0.048 12/08/2016 Lymes Disease Total Antibodies With Western Blot Refle x [id number] 12/08/2016 [place] Reflex Profile [id number] ALENA ([place]) SCREEN NONE DETECTED 017 Ehrlichia Chaffeensis Antibody Igm [id number] EHRLICHIA CHAFFEENSIS IGM < 1:16 12/05/2016 [place] Spotted Fever Igg/Igm 85581 3 GUME MT SPOTTED FEVER IGM EIA . 12/05/2016 [place] Spotted Fever Igg/Igm 56736 3 RMSF, IGM 0.43 index 12/05/2016 [place] Spotted Fever Igg/Igm 50273 3 GUME MT SPOTTED FEVER IGG EIA FLEX . 12/05/2016 [place] Spotted Fever Igg/Igm 03598 3 RMSF, IGG SCREEN-FLEX Negative 12/05/2016 Ehrlichia Chaffeensis Antibody Igg 854726 EHRLICHIA CHAFFEENSIS IGG <1:64 12/05/2016 Tibc Ord40 Iron 37 ug/dl 12/02/2016 Tibc Ord40 UIBC 372 ug/dL 12/02/2016 Tibc Ord40 TIBC 409 ug/dL 12/02/2016 Tibc Ord40 Fe-%Sat 9.0 % 12/02/2016 Ferritin Ord22 FERRITIN 13.9 ng/mL 12/02/2016 B12 Owg414 B12 344.00 pg/ml 12/02/2016 %Hba1C Ttt316 % HbA1c 45933-4 6.1 % 12/01/2016 %Hba1C Eor803 Gluc Ave 128 mg/dL 12/01/2016 Cbc With Differential Ord2 WBC 6.91 K/ul 12/01/2016 Cbc With Differential Ord2 RBC 4.27 M/ul 12/01/2016 Cbc With Differential Ord2 HGB 11.2 g/dl 12/01/2016 Cbc With Differential Ord2 HCT 34.9 % 12/01/2016 Cbc With Differential Ord2 Neut% 59.4 % 12/01/2016 Cbc With Differential Ord2 Lymph% 25.3 % 12/01/2016 Cbc With Differential Ord2 MCV 81.7 fl 12/01/2016 Cbc With Differential Ord2 MCH 26.2 pg 12/01/2016 Cbc With Differential Ord2 [place]% 8.8 % 12/01/2016 Cbc With Differential Ord2 MCHC 32.1 pg 12/01/2016 Cbc With Differential Ord2 Eos% 5.6 % 12/01/2016 Cbc With Differential Ord2 PLT 328 K/ul 12/01/2016 Cbc With Differential Ord2 Baso% 0.9 % 12/01/2016 Cbc With Differential Ord2 Neut ABS# 4.10 K/ul 12/01/2016 Cbc With Differential Ord2 RDW 14.0 % 12/01/2016 Cbc With Differential Ord2 Lymph ABS# 1.75 K/ul 12/01/2016 Cbc With Differential Ord2 [place] ABS# 0.6 K/ul 12/01/2016 Cbc With Differential Ord2 Eos ABS# 0.4 K/ul 12/01/2016 Cbc With Differential Ord2 Baso ABS# 0.1 K/ul 12/01/2016 Tsh Ord6 hTSH II 1.80 uIU/mL 12/01/2016 C-Reactive Protein Qnt Crqnt CRP 1.5 mg/dl 12/01/2016 Sed Rate Ord21 ESR 14 mm/hr 12/01/2016 Ra Factor Oxh174 RA FACT OR <10 IU/ml 12/01/2016 Vitamin D 25 Oh Emz1105 VITAMIN D, 25 HYDROXY 30.98 ng/mL 12/01/2016 Comp Metabolic Jry676 NA 140 mEq/L 12/01/2016 Comp Metabolic Llz234 K 3.9 mEq/L 12/01/2016 Comp Metabolic Upu431 CL 106 mEq/L 12/01/2016 Comp Metabolic Yns518 CO2 26.0 mEq/L 12/01/2016 Comp Metabolic Ogu109 AN ION GAP 12 12/01/2016 Comp Metabolic Xow444 GL UCOSE 147 mg/dL 12/01/2016 Comp Metabolic Xbe714 Cr eat 0.6 mg/dL 12/01/2016 Comp Metabolic Fas367 eG FR 114 ml/min/1.73m2 11/08 Comp Metabolic Teo597 BUN 11 mg/dL 12/01/2016 Comp Metabolic Fhq505 B/ C Ratio 18.6 Ratio 12/01/2016 Comp Metabolic Nwz145 CA LCIUM 8.8 mg/dL 12/01/2016 Comp Metabolic Pxl512 AL K PHOS 138 U/L 12/01/2016 Comp Metabolic Amr457 T(SGOT) 34 U/L 12/01/2016 Comp Metabolic Fqd756 AL T(SGPT) 26 U/L 12/01/2016 Comp Metabolic Cie436 BI LI T 0.3 mg/dL 12/01/2016 Comp Metabolic Ldr838 AL BUMIN 3.8 g/dL 12/01/2016 Comp Metabolic Fxo001 TP RO 6.2 g/dL 12/01/2016 Comp Metabolic Ygc938 GL OB 2.4 g/dL 12/01/2016 Comp Metabolic Rlm260 A/ G Ratio 1.6 Ratio 12/01/2016 Comp Metabolic Qac631 Os mo 281 mOsmo 12/01/2016 %Hba1C Nue716 % HbA1c 94697-5 6.3 % 08/05/2016 %Hba1C Ohy547 Gluc Ave 134 mg/dL 08/05/2016 Alena [id number] ALENA ([place]) S CREJA NONE DETECTED 017 Vitamin D 25 Oh Swg5382 VITAMIN D, 25 HYDROXY 32.26 ng/mL 03/07/2016 Ra Factor Ezz930 RA FACT OR <10 IU/ml 03/07/2016 C-Reactive Protein Qnt Crqnt CRP 2.0 mg/dl 03/06/2016 Sed Rate Ord21 ESR 32 mm/hr 03/06/2016 %Hba1C Jye999 % HbA1c 21099-7 6.3 % 03/06/2016 %Hba1C Wsa852 Gluc Ave 134 mg/dL 03/06/2016 Comp Metabolic Dzw311 NA 138 mEq/L 03/06/2016 Comp Metabolic Cwm522 K 4.3 mEq/L 03/06/2016 Comp Metabolic Dja713 CL 103 mEq/L 03/06/2016 Comp Metabolic Ivx254 CO2 23.0 mEq/L 03/06/2016 Comp Metabolic Zhh136 AN ION GAP 16 03/06/2016 Comp Metabolic Xqi500 GL UCOSE 148 mg/dL 03/06/2016 Comp Metabolic Dib460 Cr eat 0.6 mg/dL 03/06/2016 Comp Metabolic Ycp184 eG FR 104 ml/min/1.73m2 02/07 Comp Metabolic Aus375 BUN 13 mg/dL 03/06/2016 Comp Metabolic Fjl236 B/ C Ratio 20.3 Ratio 03/06/2016 Comp Metabolic Fsx831 CA LCIUM 9.7 mg/dL 03/06/2016 Comp Metabolic Ics263 AL K PHOS 146 U/L 03/06/2016 Comp Metabolic Kln273 T(SGOT) 25 U/L 03/06/2016 Comp Metabolic Eem820 AL T(SGPT) 25 U/L 03/06/2016 Comp Metabolic Pme063 BI LI T 0.3 mg/dL 03/06/2016 Comp Metabolic Tmx568 AL BUMIN 4.1 g/dL 03/06/2016 Comp Metabolic Bjc923 TP RO 6.9 g/dL 03/06/2016 Comp Metabolic Lay413 GL OB 2.8 g/dL 03/06/2016 Comp Metabolic Wan457 A/ G Ratio 1.5 Ratio 03/06/2016 Comp Metabolic Hwj982 Os mo 279 mOsmo 03/06/2016 Cbc With [...] 27.1 pg 03/06/2016 Cbc With Differential Ord2 [place]% 9.2 % 03/06/2016 Cbc With Differential Ord2 MCHC 32.7 pg 03/06/2016 Cbc With Differential Ord2 Eos% 3.1 % 03/06/2016 Cbc With Differential Ord2 Baso% 0.9 % 03/06/2016 Cbc With Differential Ord2 PLT 288 K/ul 03/06/2016 Cbc With Differential Ord2 RDW 14.1 % 03/06/2016 Cbc With Differential Ord2 Neut ABS# 3.62 K/ul 03/06/2016 Cbc With Differential Ord2 Lymph ABS# 1.35 K/ul 03/06/2016 Cbc With Differential Ord2 [place] ABS# 0.5 K/ul 03/06/2016 Cbc With Differential Ord2 Eos ABS# 0.2 K/ul 03/06/2016 Cbc With Differential Ord2 Baso ABS# 0.1 K/ul 03/06/2016 Tsh Ord6 hTSH II 3.61 uIU/mL 03/06/2016 Culture Urine [id number] URI NE CULTURE SEE NOTES 08/20/2015 Culture Urine [id number] Con tinued Results 08/20/2015 Urine Culture Ucult Comp lete Growth of aerobe sent to ref lab 08/18/2015 Vitamin D 25 Oh Cdc1712 VITAMIN D, 25 HYDROXY 24.39 ng/mL 07/18/2015 Comp Metabolic Sjl537 NA 136 mEq/L 07/17/2015 Comp Metabolic Dqn458 K 4.0 mEq/L 07/17/2015 Comp Metabolic Tsa030 CL 100 mEq/L 07/17/2015 Comp Metabolic Dza938 CO2 27.0 mEq/L 07/17/2015 Comp Metabolic Whd657 AN ION GAP 13 07/17/2015 Comp Metabolic Pal917 GL UCOSE 121 mg/dL 07/17/2015 Comp Metabolic Rbg702 Cr eat 0.7 mg/dL 07/17/2015 Comp Metabolic Uln087 eG FR 96 ml/min/1.73m2 07/16 Comp Metabolic Gns070 BUN 10 mg/dL 07/17/2015 Comp Metabolic Qzt542 B/ C Ratio 14.5 Ratio 07/17/2015 Comp Metabolic Xzh317 CA LCIUM 8.9 mg/dL 07/17/2015 Comp Metabolic Hag727 AL K PHOS 146 U/L 07/17/2015 Comp Metabolic Muu801 T(SGOT) 20 U/L 07/17/2015 Comp Metabolic Fyj056 AL T(SGPT) 22 U/L 07/17/2015 Comp Metabolic Ihz804 BI LI T 0.4 mg/dL 07/17/2015 Comp Metabolic Exe804 AL BUMIN 4.0 g/dL 07/17/2015 Comp Metabolic Wna851 TP RO 6.6 g/dL 07/17/2015 Comp Metabolic Vip316 GL OB 2.6 g/dL 07/17/2015 Comp Metabolic Bcc429 A/ G Ratio 1.6 Ratio 07/17/2015 Comp Metabolic Kix924 Os mo 272 mOsmo 07/17/2015 Sed Rate [...] 26.1 pg 07/17/2015 Cbc With Differential Ord2 [place]% 12.6 % 07/17/2015 Cbc With Differential Ord2 MCHC 31.3 pg 07/17/2015 Cbc With Differential Ord2 Eos% 0.7 % 07/17/2015 Cbc With Differential Ord2 Baso% 0.5 % 07/17/2015 Cbc With Differential Ord2 PLT 308 K/ul 07/17/2015 Cbc With Differential Ord2 Neut ABS# 5.11 K/ul 07/17/2015 Cbc With Differential Ord2 RDW 16.5 % 07/17/2015 Cbc With Differential Ord2 Lymph ABS# 1.25 K/ul 07/17/2015 Cbc With Differential Ord2 [place] ABS# 0.9 K/ul 07/17/2015 Cbc With Differential [...] Crqnt CRP 2.9 mg/dl 07/17/2015 GFR CALC 4062550 GFR AA >60 ML/MIN 10/06/2013 GFR CALC 2510774 GFR NON -AA >60 ML/MIN 10/06/2013 CHEM 14 20270911 AST 34 U/L 10/06/2013 CHEM 14 20270911 ALT 30 IU/L 10/06/2013 CHEM 14 2689281 BUN 11 MG/DL 10/06/2013 CHEM 14 1024849 ALBUMIN 4.4 GM/DL 10/06/2013 CHEM 14 7466045 CHLORIDE 107 MMOL/L 10/06/2013 CHEM 14 0717103 BILI TOT 0.4 MG/DL 10/06/2013 CHEM 14 3390975 ALK PHOS 133 U/L 10/06/2013 CHEM 14 9164743 SODIUM 140 MMOL/L 10/06/2013 CHEM 14 8234881 CREATINI NE 0.67 MG/DL 10/06/2013 CHEM 14 7694594 CALCIUM 9.3 MG/DL 10/06/2013 CHEM 14 6219307 POTASSIUM 4.0 MMOL/L 10/06/2013 CHEM 14 2610669 PROT TOT 7.1 GM/DL 10/06/2013 CHEM 14 7150360 GLUCOSE 108 MG/DL 10/06/2013 CHEM 14 6344112 BICARB 25 MMOL/L 10/06/2013 CHEM 14 2563618 ANION GAP 8 MEQ/L 10/06/2013 VIT D TOTL 1740958 VIT D TOTL 37 NG/ML 10/06/2013 GC/CHL PRB 9284869 CHLM PROBE NEG 09/21/2013 GC/CHL PRB 1862529 GC UT OBE NEG 09/21/2013 DNA AB 0325662 DNA AB 36 IU/ML 09/17/2013 RA FACTOR 1228797 RA FAC TOR <20.0 IU/ML 09/16/2013 SM MUSC AB 2808111 SM MU SC AB <1:20 09/16/2013 CARDIO G/M 5846751 CARDI O IGG 1.7 GPLU 09/16/2013 CARDIO G/M 2233999 CARDI O IGM 4.8 MPLU 09/16/2013 ALENA SCR [id number] ALENA SCR <1:80 09/16/2013 CRP [id number] CRP 1.1 MG/DL 09/15/2013 ESR [id number] ESR 22 MM/HR 09/15/2013 CBC [id number] WBC 5.5 10e9/L 04/26/2013 CBC [id number] RBC 4.89 10e12/L 04/26/2013 CBC [id number] HGB 12.8 g/dL 04/26/2013 CBC [id number] HCT DET 39.5 % 04/26/2013 CBC [id number] MCV 80.8 fL 04/26/2013 CBC [id number] MCH 26.2 pg 04/26/2013 CBC 1572296 MCHC 32.4 g/dL 04/26/2013 CBC 4255833 PLT 299 10e9/L 04/26/2013 CBC 8858928 MPV 10.9 fL 04/26/2013 CBC [id number] WAN % 59.0 % 04/26/2013 CBC 3994518 LY % 29.6 % 04/26/2013 CBC [id number] MON % 9.1 % 04/26/2013 CBC 2779350 EOS % 1.8 % 04/26/2013 CBC 1410291 BASO % 0.5 % 04/26/2013 CBC 2559849 RDW 13.9 % 04/26/2013 CBC 5608944 ABS WAN 3.25 10e9/L 04/26/2013 CBC [id number] ABS LYMPH 1.63 10e9/L 04/26/2013 CBC [id number] ABS MONO 0.50 10e9/L 04/26/2013 CBC 6001405 ABS EOS 0.10 10e9/L 04/26/2013 CBC 9266599 ABS BASO 0.03 10e9/L 04/26/2013 CBC 2732518 RDW-SD 39.9 fL 04/26/2013 URINALYSIS NONAUTO W/O SCOPE 33499 Specific Webster 1.020 DateTime(Free Text in Aprima) URINALYSIS NONAUTO W/O SCOPE 95499 PH 6.0 DateTime(Free Rik t in Aprima) URINALYSIS NONAUTO W/O SCOPE 93822 GLUCOSE neg DateTime(Free Rik t in Aprima) URINALYSIS NONAUTO W/O SCOPE 80099 Protein neg DateTime(Free Rik t in Aprima) URINALYSIS NONAUTO W/O SCOPE 62530 Blood neg DateTime(Free Rik t in Aprima) URINALYSIS NONAUTO W/O SCOPE 16278 Bilirubin neg DateTime(Free Rik t in Aprima) URINALYSIS NONAUTO W/O SCOPE 48953 Ketones neg DateTime(Free Rik t in Aprima) URINALYSIS NONAUTO W/O SCOPE 13470 Urobilinogen neg DateTime(Free Text in Aprima) URINALYSIS NONAUTO W/O SCOPE 37376 Nitrite neg DateTime(Free Rik t in Aprima) URINALYSIS NONAUTO W/O SCOPE 65652 Leukocytes 1+ DateTime(Free Text in Apr) Review of Systems System Result Effective Dates [...] murmurs 06/06/2013 None Full Exam - General 1995 Psychiatric orientation/consciousness Overall: oriented to person, place [...] None Full Exam - General 1995 Ears/Nose/Throat otoscopic exam Overall: tympanic membranes clear 04/14/2013 None Full Exam - General 1995 Ears/Nose/Throat lips/teeth/gingiva Overall: benign lips 04/14/2013 None Full Exam - General 1994 Ears/Nose/Throat lips/teeth/gingiva Overall: normal dentition 04/14/2013 None Full Exam - General 1995 Ears/Nose/Throat oral cavity/pharynx/larynx Overall: hypopharynx benign 04/14/2013 [...] Date URINALYSIS NONAUTO W /O SCOPE CPT-4: 87185 11/02/2017 OCCULT BLOOD FECES CPT- 4: 34340 12/08/2016 IMMUNIZATION ADMIN CPT- 4: 72343 12/07/2015 FLU VACC 4 AMBER 3 YRS PLUS IM SNOMED CT: 39179200 CPT-4: 41731 12/07/2015 URINALYSIS NONAUTO W /O SCOPE CPT-4: 75296 08/17/2015 CHEM 14 (COMPREHEN M ETABOLIC PANEL) CPT-4: 01677 10/06/2013 VIT D TOTL (VITAMIN D 25 HYDROXY) CPT-4: 37685 10/06/2013 CRP (C-REACTIVE PROT EIN) CPT-4: 26387 09/15/2013 ESR (RBC SED RATE AU TOMATED) CPT-4: 46695 09/15/2013 ROUTINE VENIPUNCTURE CPT-4: 18464 09/15/2013 URINALYSIS NONAUTO W /O SCOPE CPT-4: 21710 08/16/2013 C URINE RT CPT-4: 5415903 08/16/2013 C URINE RT (URINE CU LTURE/COLONY COUNT) CPT-4: 99588 08/16/2013 ROUTINE VENIPUNCTURE CPT-4: 31577 04/26/2013 Vital Signs Date Vital 04/22/2018 Heigh t: Weight: 04/20/2018 Blood Pressure 1: 150/90 Code: 8480-6 Heart Rate 1: 104 bpm Height: SpO2: 95% Weight: 11/02/2017 Blood Pressure 1: 130/76 Code: 8480-6 BMI: 37.6 Code: 68934-1 Heart Rate 1: 68 bpm Height: 5'5" SpO2: 98% Weight: 226 lbs 10/13/2017 Blood Pressure 1: 140/86 Code: 8480-6 BMI: 37.4 Code: 27995-4 Heart Rate 1: 78 bpm Height: 5'5" SpO2: 98% Weight: 225 lbs 07/20/2017 Blood Pressure 1: 128/80 Code: 8480-6 BMI: 39.1 Code: 69474-3 Heart Rate 1: 75 bpm Height: 5'5" SpO2: 98% Weight: 235 lbs 06/09/2017 Blood Pressure 1: 150/92 Code: 8480-6 BMI: 39.1 Code: 58595-7 Heart Rate 1: 106 bpm Height: 5'5" SpO2: 98% Weight: 235 lbs 05/12/2017 Blood Pressure 1: 144/68 Code: 8480-6 BMI: 38.9 Code: 23921-5 Heart Rate 1: 89 bpm Height: 5'5" SpO2: 98% Weight: 234 lbs 12/01/2016 Blood Pressure 1: 140/88 Code: 8480-6 BMI: 39.6 Code: 10606-4 Heart Rate 1: 101 bpm Height: 5'5" SpO2: 97% Weight: 238 lbs 08/05/2016 Blood Pressure 1: 134/82 Code: 8480-6 Heart Rate 1: 113 bpm Height: 5'5" SpO2: 98% 07/22/2016 Blood Pressure 1: 142/84 Code: 8480-6 BMI: 39.6 Code: 11239-5 Heart Rate 1: 103 bpm Height: 5'5" SpO2: 97% Weight: 238 lbs 03/06/2016 Blood Pressure 1: 138/86 Code: 8480-6 Heart Rate 1: 100 bpm SpO2: 96% Weight: 246 lbs 12/07/2015 Blood Pressure 1: 140/78 Code: 8480-6 BMI: 40.8 Code: 77610-8 Heart Rate 1: 97 bpm Height: 5'6" SpO2: 98% Weight: 250 lbs 11/09/2015 Blood Pressure 1: 118/84 Code: 8480-6 BMI: 40.7 Code: 40803-8 Heart Rate 1: 85 bpm Height: 5'6" SpO2: 98% Weight: 249 lbs 08/17/2015 Blood Pressure 1: 122/82 Code: 8480-6 BMI: 39.4 Code: 70388-1 Heart Rate 1: 86 bpm Height: 5'6" SpO2: 95% Weight: 241 lbs 07/24/2015 Blood Pressure 1: 118/76 Code: 8480-6 BMI: 39.9 Code: 73035-1 Heart Rate 1: 97 bpm Height: 5'6" SpO2: 96% Weight: 244 lbs 07/16/2015 Blood Pressure 1: 158/80 Code: 8480-6 Blood Pressure 1: 120/86 Code: 8480-6 Heart Rate 1: 105 bpm Height: 5'6" SpO2: 98% Weight: 06/12/2015 Blood Pressure 1: 128/82 Code: 8480-6 BMI: 39.9 Code: 62779-8 Heart Rate 1: 89 bpm Height: 5'6" SpO2: 98% Weight: 244 lbs 03/08/2015 Blood Pressure 1: 130/86 Code: 8480-6 Heart Rate 1: 98 bpm Height: 5'6" SpO2: 97% Weight: 12/29/2014 Blood Pressure 1: 138/88 Code: 8480-6 BMI: 39.2 Code: 44429-6 Heart Rate 1: 109 bpm Height: 5'6" SpO2: 97% Weight: 240 lbs 11/17/2014 Blood Pressure 1: 170/98 Code: 8480-6 BMI: 39.7 Code: 71302-9 Heart Rate 1: 92 bpm Height: 5'6" SpO2: 98% Weight: 243 lbs 05/16/2014 Blood Pressure 1: 130/82 Code: 8480-6 BMI: 39.2 Code: 71916-8 Heart Rate 1: 88 bpm Height: 5'6" Weight: 240 lbs 04/04/2014 Blood Pressure 1: 146/92 Code: 8480-6 Blood Pressure 2: 136/86 Code: 8480-6 BMI: 39.9 Code: 75605-0 Heart Rate 1: 68 bpm Height: 5'6" Weight: 244 lbs 12/01/2013 Blood Pressure 1: 142/80 Code: 8480-6 BMI: 38.4 Code: 24490-6 Heart Rate 1: 80 bpm Height: 5'6" Weight: 235 lbs 10/10/2013 Blood Pressure 1: 128/88 Code: 8480-6 BMI: 38.7 Code: 58309-2 Heart Rate 1: 88 bpm Height: 5'6" Weight: 237 lbs 09/15/2013 Blood Pressure 1: 112/74 Code: 8480-6 BMI: 39.0 Code: 51219-8 Heart Rate 1: 80 bpm Height: 5'6" Weight: 239 lbs 08/16/2013 Blood Pressure 1: 124/64 Code: 8480-6 BMI: 39.0 Code: 94080-9 Heart Rate 1: 88 bpm Height: 5'6" Weight: 239 lbs 06/06/2013 Blood Pressure 1: 120/72 Code: 8480-6 BMI: 37.9 Code: 41397-1 Heart Rate 1: 84 bpm Height: 5'6" Weight: 232 lbs 04/26/2013 Blood Pressure 1: 148/86 Code: 8480-6 BMI: 37.7 Code: 73584-8 Heart Rate 1: 84 bpm Height: 5'6" Weight: 231 lbs 04/14/2013 Blood Pressure 1: 148/92 Code: 8480-6 BMI: 38.2 Code: 04170-1 Heart Rate 1: 88 bpm Height: 5'6" [...] Encounters Encounter Performer Loca tion Codes Date ([id number]) Ganesh coats no charge Diagnosis: Insect bite (nonvenomous), left lower leg, subsequent encounter[ICD10: S80.862D] Katy Manzanares MD, [facility] CPT-4: 93293 04/22/2018 ([id number]) 23215 EST. P ATIENT, LEVEL III Diagnosis: Insect bite (nonvenomous), left lower leg, initial encounter[ICD10: S80.862A] [facility] CPT-4: 93505 04/20/2018 41443 EST. PATIENT, LEVEL II Diagnosis: Dysuria[ICD10: R30.0] Diagnosis: Other specified conditions associated with female genital organs and menstrual cycle[ICD10: N94.89] Katy Manzanares MD, [facility] CPT-4: 75950 11/02/2017 ([id number]) 24825 EST. 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 P ATIENT, LEVEL III Diagnosis: Essential (primary) hypertension[ICD10: I10] [facility] CPT-4: 43754 07/20/2017 ([id number]) 07369 EST. P ATIENT, LEVEL III Diagnosis: Essential (primary) hypertension[ICD10: I10] [facility] CPT-4: 98083 06/09/2017 ([id number]) 87226 EST. 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 P ATIENT, LEVEL IV Diagnosis: Essential [...] R50.9] [facility] CPT- 4: 56114 12/01/2016 ([id number]) 77707 EST. P ATIENT, LEVEL III Diagnosis: Impaired fasting glucose[ICD10: R73.01] Diagnosis: Low back pain[ICD10: M54.5] Diagnosis: Generalized anxiety disorder[ICD10: F41.1] [facility] CPT-4: 38040 08/05/2016 ([id number]) 82943 EST. P ATIENT, LEVEL III Diagnosis: Essential (primary) hypertension[ICD10: I10] Diagnosis: Radiculopathy, lumbar region[ICD10: M54.16] [facility] CPT-4: 59152 07/22/2016 ([id number]) Miscellaneou s no charge Diagnosis: Dysuria[ICD10: R30.0] [facility] CPT-4: 82134 06/12/2016 ([id number]) 11584 EST. P ATIENT, LEVEL IV Diagnosis: Type 2 diabetes mellitus without complications[ICD10: E11.9] Diagnosis: Vitamin D deficiency, unspecified[ICD10: E55.9] Diagnosis: Generalized anxiety disorder[ICD10: F41.1] Diagnosis: Essential (primary) hypertension[ICD10: I10] Diagnosis: Radiculopathy, cervical region[ICD10: M54.12] Diagnosis: Cardiac murmur, unspecified[ICD10: R01.1] Katy Manzanares MD, [facility] CPT-4: 72290 03/06/2016 ([id number]) 15651 EST. P ATIENT, LEVEL III Diagnosis: Generalized anxiety disorder[ICD10: F41.1] Diagnosis: Major depressive disorder, recurrent, in partial remission[ICD10: F33.41] Katy Manzanares MD, [facility] CPT-4: 88651 12/07/2015 ([id number]) 19829 EST. P ATIENT, LEVEL IV Diagnosis: Essential (primary) hypertension[ICD10: I10] Diagnosis: Generalized anxiety disorder[ICD10: F41.1] Diagnosis: Other obesity due to excess calories[ICD10: E66.09] Katy Manzanares MD, [facility] CPT-4: 36960 11/09/2015 ([id number]) 38172 EST. P ATIENT, LEVEL III Diagnosis: Urinary tract infection, site not specified[ICD10: N39.0] Kayt Manzanares MD, [facility] CPT-4: 57969 08/17/2015 ([id number]) 92347 EST. P ATIENT, LEVEL III Diagnosis: Generalized anxiety disorder[ICD10: F41.1] Diagnosis: Major depressive disorder, recurrent, moderate[ICD10: F33.1] Katy Manzanares MD, [facility] CPT-4: 02166 07/24/2015 ([id number]) 46352 EST. P ATIENT, LEVEL IV Diagnosis: Myalgia[ICD10: M79.1] Diagnosis: Low back pain[ICD10: M54.5] Diagnosis: Cervicalgia[ICD10: M54.2] Diagnosis: Essential (primary) hypertension[ICD10: I10] Diagnosis: Vitamin D deficiency, unspecified[ICD10: E55.9] Diagnosis: Generalized anxiety disorder[ICD10: F41.1] Katy Manzanares MD, [facility] CPT-4: 60280 07/16/2015 ([id number]) 18527 EST. P ATIENT, LEVEL IV Diagnosis: Cervicalgia[ICD10: M54.2] Diagnosis: Essential (primary) hypertension[ICD10: I10] Diagnosis: Low back pain[ICD10: M54.5] Diagnosis: Radiculopathy, cervical region[ICD10: M54.12] [facility] CPT-4: 53408 06/12/2015 95565 EST. PATIENT, LEVEL III Diagnosis: Sacroiliitis, not elsewhere classified[ICD10: M46.1] Diagnosis: Low back pain[ICD10: M54.5] Diagnosis: Pain in left hip[ICD10: M25.552] Diagnosis: Pain in right hip[ICD10: M25.551] Samantha Manzanares MD, [facility] CPT-4: 04255 03/08/2015 49684 EST. PATIENT, LEVEL III Diagnosis: Anxiety disorder due to known physiological condition[ICD10: F06.4] Diagnosis: Mood disorder due to known physiological condition with depressive features[ICD10: F06.31] Diagnosis: Flushing[ICD10: R23.2] Samantha Manzanares MD, [facility] CPT-4: 20849 12/29/2014 ([id number]) 29078 EST. P ATIENT, LEVEL IV Diagnosis: ESSENTIAL HYPERTENSION[ICD9: 401.9] Diagnosis: Anxiety[ICD9: 300.00] Diagnosis: Depression[ICD9: 311] [facility] CPT-4: 05704 11/17/2014 ([id number]) 22389 EST. P ATIENT, LEVEL IV Diagnosis: Anxiety[ICD9: 300.00] Diagnosis: Depression[ICD9: 311] Diagnosis: DIABETES TYPE II[ICD9: 250.00] Diagnosis: Vitamin D deficiency[ICD9: 268.9] Diagnosis: ESSENTIAL HYPERTENSION[ICD9: 401.9] Diagnosis: ABNORMAL WEIGHT GAIN[ICD9: 783.1] Katy Manzanares MD, [facility] CPT- 4: 75272 05/16/2014 ([id number]) 44246 EST. P ATIENT, LEVEL IV Diagnosis: ESSENTIAL HYPERTENSION[ICD9: 401.9] Diagnosis: Anxiety[ICD9: 300.00] Diagnosis: Depression[ICD9: 311] Katy Manzanares MD, [facility] CPT-4: 86273 04/04/2014 ([id number]) 91682 EST. P ATIENT, LEVEL IV Diagnosis: Diarrhea[ICD9: 787.91] Diagnosis: Epigastric pain[ICD9: 789.06] Diagnosis: ESOPHAGEAL REFLUX[ICD9: 530.81] Diagnosis: Blood in stool[ICD9: 578.1] Katy Manzanares MD, [facility] CPT- 4: 60005 12/01/2013 ([id number]) 90753 EST. P ATIENT, LEVEL IV Diagnosis: Vitamin D deficiency[ICD9: 268.9] Diagnosis: DIABETES TYPE II[ICD9: 250.00] Diagnosis: Depression[ICD9: 311] Diagnosis: Insomnia[ICD9: 780.52] Ally Manzanares MD, [facility] CPT-4: 34288 10/10/2013 ([id number]) PREV VISIT E ST AGE 40-64 Diagnosis: Well woman exam with routine gynecological exam[ICD9: V72.31] Diagnosis: JOINT PAIN-UNSPEC[ICD9: 719.40] Diagnosis: Nasal septal ulcer[ICD9: 478.19] Diagnosis: Swelling of extremity[ICD9: 729.81] Diagnosis: Pleuritic chest pain[ICD9: 786.52] Katy Manzanares MD, [facility] CPT-4: 49226 09/15/2013 ([id number]) 25910 EST. P ATIENT, LEVEL IV Diagnosis: DM W/O COMPLICATION TYPE II, UNCONTROLLED[SNOMED: 05014000] Diagnosis: Urinary tract infection[ICD9: 599.0] Diagnosis: DEPRESSIVE DISORDER NEC[ICD9: 311] Diagnosis: Anxiety[ICD9: 300.00] Diagnosis: Insomnia[ICD9: 780.52] Diagnosis: ANEMIA[ICD9: 285.9] Katy Manzanares MD, [facility] CPT-4: 41341 08/16/2013 ([id number]) 43078 EST. P ATIENT, LEVEL III Diagnosis: DM w/o complication type II, uncontrolled[SNOMED: 30315968] [facility] CPT-4: 82833 06/06/2013 ([id number]) 93449 EST. P ATIENT, LEVEL III Diagnosis: DIABETES TYPE II[SNOMED: 514784346] [facility] CPT- 4: 49390 04/26/2013 ([id number]) OFFICE VISI T, NEW - LEVEL 4 Diagnosis: Elevated blood pressure[ICD9: 796.2] Diagnosis: Depression[ICD9: 311] Diagnosis: Elevated alkaline phosphatase level[ICD9: 790.5] Diagnosis: Elevated glucose[ICD9: 790.29] Ally Manzanares MD, [facility] CPT-4: 83939 04/14/2013 Plan of Care Planned Activity Notes C odes Status Date Visit Plan: Spdier bite -much impro itzel-return next Thursday for follow up -continue wound care as directed 04/22/2018 Appointment: Katy Do WPtel: [address] [place], [place] [phone] (30 min) Complex 04/22/2018 Patient Education: Patient Medication Summary Completed 04/22/2018 Visit Plan: Cellulitis - start oral antibiotics as directed, return to clinic for wound check, call for acute change in symptoms, worsening redness, warmth, discharge. 04/20/2018 Appointment: Katy Do WPtel: [address] [place], [place] [phone] (10 min) Simple 04/20/2018 Patient Education: Patient Medication Summary Completed 04/20/2018 Visit Plan: Erythema of labia- dysu vonda -UA negative-yeast infection vs vulvar lichen sclerosis -rx sent to patient's pharmacy and instructed on use -call if symptoms do not resolve of if any worse. Patient verbalized understanding of plan. 11/02/2017 Appointment: Katy Do WPtel: [address] [place], [place] [phone] (15 min) Moderate 11/02/2017 Patient Education: Patient [...] current medications. 10/13/2017 Appointment: Katy Do WPtel: [facility] (30 min) Complex 10/13/2017 Patient Education: Patient Medication Summary Completed 10/13/2017 Appointment: Katy Do WPtel: [address] [place] [address] (15 min) Moderate 08/20/2017 Visit Plan: Hypertension - well con trolled but bystolic is not covered-will switch to metoprolol- continue other medications, continue with no added salt diet. Pt has been encouraged to exercise daily. The pt has been advised to call the office if there are any acute concerns about change in blood pressure readings at home. 07/20/2017 Appointment: Katy Do WPtel: [phone] (15 min) Moderate 07/20/2017 Patient Education: Patient Medication Summary Completed 07/20/2017 Appointment: Katy Do WPtel: [facility]4 [address] (15 min) Moderate 07/14/2017 Visit Plan: Hypertension [...] iron supplement 05/12/2017 Appointment: Katy Do WPtel: [address] [place], [place] [phone] (30 min) [facility] 05/12/2017 Patient Education: Patient Medication Summary Completed 05/12/2017 Patient Education: Patient Medication Summary Completed 05/12/2017 Care Plan: SCREENINGMAMMOGRAPHYDIGITAL LOINC : 87932-4 Pending 05/12/2017 Appointment: Lab Draw 12/08/2016 Patient [...] tick panel 12/01/2016 Appointment: Katy Do WPtel: [facility]4 [address] (30 min) Complex 12/01/2016 Patient Education: Patient Medication Summary Completed 12/01/2016 Patient Education: Obesity Completed 12/01/2016 Care Plan: Lymes Disease Antibobies Igg/ Igm Pending 12/01/2016 Visit Plan: Elevated glucose-check Hgb A1C Low back pain-will write letter on patient's behalf for insurance precertification Ucapsvy-aastenattd-fdka controlled-no changes 08/05/2016 Appointment: Katy Do WPtel: [phone] (30 min) Complex 08/05/2016 Patient Education: Patient [...] month. 07/22/2016 Appointment: Katy Do WPtel: [phone] (15 min) Moderate 07/22/2016 Patient Education: Patient [...] Echo 03/06/2016 Appointment: Kat[facility] Do WPtel[phone] (30 min) Complex 03/06/2016 Patient [...] medications. 12/07/2015 Appointment: Katy Do WPtel: [phone] (30 min) Complex 12/07/2015 Patient Education: Patient [...] check. 11/09/2015 Appointment: Katy Do WPtel: [phone] (30 min) Complex 11/09/2015 Patient Education: Patient Medication Summary Completed 11/09/2015 Patient Education: Obesity Completed 11/09/2015 Care Plan: BMI Above normal followup LOLI F-MGMT EDUC & TRAIN 1 PT Pending 11/09/2015 Appointment: Katy Do WPtel: [phone] (30 min) Complex 11/08/2015 Appointment: Katy Do WPtel: [address] [place], [place] [phone] (15 min) Moderate 08/23/2015 Visit Plan: Urinary [...] level 07/24/2015 Appointment: [facility] Do [facility]Ptel[facility] [phone] (30 min) Complex 07/24/2015 Patient [...] in blood pressure readings at home. Neck bqhj-fjxbppovaxdym-fmtxc to Dr Mckee for evaluation-patient has been [...] min) Moderate 09/04/2014 Appointment: Katy Do WPtel: [address] [place], [place] [phone] Follow up 07/07/2014 Visit Plan: Anxiety and [...] Completed 05/16/2014 Appointment: [facility] [phone] Follow up 05/09/2014 Visit Plan: [...] this patient. 04/04/2014 Appointment: [facility] [phone] Follow up 04/04/2014 Patient Education: [...] 12/01/2013 Care Plan: Referral Order SNOMED-CT : [id number] Ordered 12/01/2013 Visit Plan: Diabetes Mellitus - [...] for insomnia. 10/10/2013 Appointment: Ally Manzanares WPtel: [address] [place], [place] [phone] Follow up 10/10/2013 Patient Education: Patient Medication Summary Completed 10/10/2013 Appointment: Ally Manzanares WPtel: [address] [place], [place] [phone] Lab Draw 10/06/2013 Patient Education: Patient Medication Summary Completed 10/06/2013 Appointment: Ally Manzanares WPtel: [address] [place], [place] [phone] [place] Follow up 10/04/2013 Visit Plan: Well [...] or prn. Joint pain-pleuritic chest pain-swelling of xorl-njlfvpo-hnsoifk for autoimmune disease such as lupus-plan to check labs and proceed as indicated. Instructed patient we will call her with results of labs. 09/15/2013 Appointment: Katy Do WPtel: [facility]5 [phone] [place] Pap Only 09/15/2013 Patient Education: Patient [...] iron panel 08/16/2013 Appointment: Katy Do WPtel: [address] [place], [place] [phone] Follow up 08/16/2013 Patient Education: Patient Medication Summary Completed 08/16/2013 Care Plan: C URINE RT Pending 08/16/2013 Appointment: Katy Do WPtel: [facility]5 [phone] Follow up 08/09/2013 Appointment: Ally Manzanares WPtel: [address] [place], [place] [phone] [place] Follow up 08/08/2013 Visit Plan: Diabetes [...] glucose control. 06/06/2013 Appointment: Ally Manzanares WPtel: [address] [place], [place] [phone] Follow up 06/06/2013 Patient Education: Patient Medication Summary Completed 06/06/2013 Appointment: Ally Manzanares WPtel: [address] [place] [address] Follow up 05/12/2013 Visit Plan: Diabetes Mellitus [...] glucose control. 04/26/2013 Appointment: Katy Do WPtel: [address] [place] [phone] [place] [address] Diabetic education 04/26/2013 Patient Education: Patient Medication [...] and hgba1c. 04/14/2013 Appointment: Ally Manzanares WPtel: [address] [place], [place] [phone] New Patient 04/14/2013 Patient Education: Patient Medication Summary Completed 04/14/2013 Appointment: Ally Manzanares WPtel: [address] [place] [address] New Patient 04/05/2013 Referral: Dr Trujillo Referral Initiated Instructions Comment . Pt is currently we aring a [...] prevent diarrhea. Patient verbalized understanding of plan. . Diabetes Mellitus - new diagnosis- I [...] or prn. Joint pain-pleuritic chest pain-swelling of seuh-swysnky-cjyfytq for autoimmune disease such as lupus-plan to [...] pills daily keep metformin at current dose. 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 . Diabetes Mellitus - controlled [...] up in 2 months for weight check INCREASE METFORMIN T O A FULL TAB [...] follow up -continue wound care as directed HOLD METFORMIN X 1 W LOWER [place] RESTART PANTOPRAZOLE DAILY CONTINUE CARAFATE BEFORE MEALS [...] stook studies if diarrhea does not resolve bystolic 5mg daily - monitor blood pressure [...] pt is to call for acute concerns. 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 Elevated glucose-check Hgb A1C Low back pain-will write letter on patient's behalf for insurance precertification Fswdsyr-bxsycrcfym-kkqy controlled-no changes . Hypertension - wel l controlled - continue with current medications, continue with no added salt diet. Pt has been encouraged to exercise daily. The pt has been advised to call the office if there are any acute concerns about change in blood pressure readings at home. Neck cssp-mscmukxtrugey-dpwll to Dr Mckee for evaluation-patient has been [...]
--- OUTSIDE RECORDS SUMMARY | 2019-03-04 02:52 | XMS REPORT | CCD ---
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[employer], [employer]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 09/15/2013 Marital status Unknown M arried 04/14/[address]: [id number] Never smoker 04/14/2013 Alcohol history Unknown occasionally [...] Date Stop Date Sta tus Fill Instructions mupirocin 2 % topica l ointment RxNorm: 876662 1 Application TOP BID 04/20/2018 04/29/2018 Inactive Bactrim DS 800 mg-16 0 mg tablet RxNorm: 523237 1 Tablet(s) PO BID 04/20/2018 04/26/2018 Inactive Diflucan 150 mg tablet RxNorm: 453723 1 Tablet(s) PO daily 11/02/2017 11/08/2017 Inactive Wellbutrin XL 300 mg 24 hr tablet, extended release RxNorm: 931929 TAKE 1 TABLET BY MOUTH ONCE DAILY 09/07/2017 No Stop Date Active metoprolol succinate ER 50 mg tablet,extended release 24 hr RxNorm: 616970 1 Tablet(s) PO daily 07/20/2017 01/15/2018 Inactive amitriptyline 25 mg tablet RxNorm: 235941 Tablet(s) 2 TAB(S) PO HS 07/09/2017 10/06/2017 Inactive Bystolic 5 mg tablet RxNorm: 845287 1 Tablet(s) PO daily 06/09/2017 07/08/2017 Inactive Vitamin D2 50,000 un it capsule RxNorm: 026919 1 Capsule(s) PO QW 05/12/2017 08/09/2017 Inactive metformin 500 mg tablet RxNorm: 946881 1/2 Tablet(s) PO QPM 05/12/2017 11/07/2017 Inactive metformin 500 mg tablet RxNorm: 490846 1/2 Tablet(s) PO QPM 05/12/2017 05/11/2017 Inactive lisinopril 20 mg-hyd rochlorothiazide 12.5 mg tablet RxNorm: 588948 1 TABLET(S) PO DAILY 04/23/2017 10/19/2017 Inactive Wellbutrin XL 300 mg 24 hr tablet, extended release RxNorm: 049680 1 Tablet(s) PO daily 1 TABLET(S) PO DAILY 12/01/2016 05/29/2017 Inactive Wellbutrin XL 150 mg 24 hr tablet, extended release RxNorm: 018690 1 TABLET(S) PO DAILY 10/07/2016 11/30/2016 Inactive amitriptyline 25 mg tablet RxNorm: 017227 2 TAB(S) PO HS,INSTR: FOR PAIN AND SLEEP 09/24/2016 07/08/2017 In active amitriptyline 25 mg tablet RxNorm: 234513 2 Tablet(s) PO QHS 09/23/2016 09/23/2016 Inactive meloxicam 15 mg tablet RxNorm: 050894 1 TABLET(S) PO DAILY 09/08/2016 12/06/[address] on hold until pt needs it: she is going to take (2) 7.5mg until gone cetirizine 10 mg tablet RxNorm: 5579943 1 Tablet(s) PO daily 07/22/2016 No Stop Date Active lisinopril 20 mg-hyd rochlorothiazide 12.5 mg tablet RxNorm: 466346 1 TABLET(S) PO DAILY 06/20/2016 12/16/2016 Inactive Wellbutrin XL 150 mg 24 hr tablet, extended release RxNorm: 680805 1 TABLET(S) PO DAILY 05/12/2016 08/09/2016 Inactive Victoza 3-Jean 0.6 mg /0.1 mL (18 mg/3 mL) subcutaneous pen injector RxNorm: 618882 0.6 Milligram(s) SQ daily 03/21/2016 07/21/2016 Inactive NovoFine Plus 32 gau ge x 1/6" needle RxNorm: 1 Miscellaneous daily 03/21/2016 07/21/2016 Inactive NovoFine Plus 32 gau ge x 1/6" needle RxNorm: 1 Miscellaneous daily 03/21/2016 03/20/2016 Inactive Victoza 3-Jean 0.6 mg /0.1 mL (18 mg/3 mL) subcutaneous pen injector RxNorm: 502793 0.6 Milligram(s) SQ daily 03/21/2016 03/20/2016 Inactive Vitamin D2 50,000 un it capsule RxNorm: 443910 1 Capsule(s) PO QW 03/20/2016 06/17/2016 Inactive meloxicam 15 mg tablet RxNorm: 472998 1 Tablet(s) PO daily 03/20/2016 07/17/[address] on hold until pt needs it: she is going to take (2) 7.5mg until gone lisinopril 20 mg-hyd rochlorothiazide 12.5 mg tablet RxNorm: 550122 1 TABLET(S) PO DAILY 02/19/2016 05/18/2016 Inactive Wellbutrin XL 150 mg 24 hr tablet, extended release RxNorm: 967611 1 Tablet(s) PO daily 11/09/2015 03/07/2016 Inactive gabapentin 800 mg ta blet RxNorm: 772303 1 Tablet(s) PO TID 11/09/2015 06/08/2017 Inactive Lexapro 10 mg tablet RxNorm: 560714 1 TABLET(S) PO QPM 11/05/2015 11/08/2015 Inactive lisinopril 20 mg-hyd rochlorothiazide 12.5 mg tablet RxNorm: 592718 1 TABLET(S) PO DAILY 10/18/2015 01/15/2016 Inactive Cipro 500 mg tablet RxNorm: 586297 1 Tablet(s) PO BID 08/17/2015 08/23/2015 Inactive Lexapro 10 mg tablet RxNorm: 958852 1 Tablet(s) PO QPM 07/24/2015 10/21/2015 Inactive Vitamin D2 50,000 un it capsule RxNorm: 275996 1 Capsule(s) PO QW 07/24/2015 10/21/2015 Inactive gabapentin 300 mg ca psule RxNorm: 769993 2 Capsule(s) PO TID 07/16/2015 11/08/2015 Inactive lisinopril 20 mg-hyd rochlorothiazide 12.5 mg tablet RxNorm: 883701 1 TABLET(S) PO DAILY 04/09/2015 07/07/2015 Inactive naproxen 250 mg tablet RxNorm: 133958 1-2 Tablet(s) PO BID as needed for pain 03/08/2015 No Stop Date Active Fetzima 40 mg capsul e,extended release RxNorm: 1228865 1 Capsule(s) PO adri y 12/22/2014 12/21/2014 In active Fetzima 40 mg capsul e,extended release RxNorm: 6071352 1 Capsule(s) PO adri y 12/22/2014 06/11/2015 In active Xanax 0.5 mg tablet RxNorm: 650247 1 Tablet(s) TAKE 1 TABLET BY MOUTH TWICE DAILY NEEDED FOR ANXIETY 11/17/2014 01/15/2015 Inactive lisinopril 20 mg-hyd rochlorothiazide 12.5 mg tablet RxNorm: 646066 1 Tablet(s) PO daily 11/17/2014 03/16/2015 Inactive Fetzima 20 mg capsul e,extended release RxNorm: 4271843 1 Capsule(s) PO adri y 11/17/2014 12/22/2014 In active Xanax 0.5 mg tablet RxNorm: 712913 1 Tablet(s) TAKE 1 TABLET BY MOUTH TWICE DAILY NEEDED FOR ANXIETY 10/27/2014 11/16/2014 Inactive Xanax 0.5 mg tablet RxNorm: 519918 TAKE 1 TABLET BY MOUTH TWICE DAILY NE EDED FOR ANXIETY 08/25/2014 10/23/2014 Inactive Brintellix 10 mg tablet RxNorm: 1568702 1 Tablet(s) PO daily 07/04/2014 07/03/2014 Inactive Brintellix 10 mg tablet RxNorm: 8477603 1 Tablet(s) PO daily 07/04/2014 11/16/2014 Inactive Brintellix 10 mg tablet RxNorm: 5922313 1 Tablet(s) PO daily 06/09/2014 07/03/2014 Inactive Contrave 8 mg-90 mg tablet,extended release RxNorm: 8766962 2 Tablet(s) PO BID 06/09/2014 09/06/2014 In active 1 tab q am x 1 week, then 1 tab BID x 1 week, then 2 q am and 1 q pm x 1 week then 2 tabs BID thereafter Contrave 8 mg-90 mg tablet,extended release RxNorm: 2328938 2 Tablet(s) PO BID 06/09/2014 06/08/2014 In active 1 tab q am x 1 week, then 1 tab BID x 1 week, then 2 q am and 1 q pm x 1 week then 2 tabs BID thereafter metformin 500 mg tablet RxNorm: 950995 1/2 Tablet(s) PO BID 05/18/2014 09/14/2014 Inactive Brintellix 10 mg tablet RxNorm: 4757592 2 Tablet(s) PO daily 05/16/2014 06/08/2014 Inactive Xanax 0.5 mg tablet RxNorm: 274757 1 Tablet(s) PO BID PRN 04/06/2014 08/25/2014 Inactive Wellbutrin XL 150 mg 24 hr tablet, extended release RxNorm: 456339 1 Tablet(s) PO daily 04/04/2014 05/15/2014 Inactive [SAVINGS FOR UNINSURED PATIENTS -- BIN:[id number], PCN: [id number], Group: [id number], ID# [id number], Process claim through [employer], for questions: . THIS IS NOT INSURANCE.] pantoprazole 40 mg t ablet,delayed release RxNorm: 778255 1 Tablet(s) PO daily 12/01/2013 03/30/2014 In active Vitamin D3 2,000 uni t tablet RxNorm: 368090 1 Tablet(s) PO daily 10/10/2013 No Stop Date Active Vitamin D2 50,000 un it capsule RxNorm: 495748 1 Capsule(s) PO QW 10/10/2013 11/16/2014 Inactive vitamin d 50,000 units weekly x 12 weeks then 5000 units daily thereafter escitalopram 20 mg t ablet RxNorm: 214203 1 Tablet(s) PO daily 10/10/2013 04/04/2014 Inactive trazodone 100 mg tablet RxNorm: 906126 1 TABLET(S) PO QHS 09/19/2013 01/16/2014 Inactive trazodone 100 mg tablet RxNorm: 824738 1 Tablet(s) PO QHS 08/16/2013 09/14/2013 Inactive metformin 500 mg tablet RxNorm: 210453 1 Tablet(s) PO BID 08/16/2013 04/03/2014 Inactive Diflucan 150 mg tablet RxNorm: 192712 1 Tablet(s) PO daily 08/16/2013 08/22/2013 Inactive metformin 500 mg tablet RxNorm: 597014 1/2 Tablet(s) PO BID 1/2 tab in the even ing x 1 week then 1/2 tab twice daily 04/26/2013 08/15/2013 Inactive Vitamin D2 50,000 un it capsule RxNorm: 335449 1 Capsule(s) PO QW 04/21/2013 10/09/2013 Inactive vitamin d 50,000 units weekly x 12 weeks then 5000 units daily thereafter Lexapro 10 mg tablet RxNorm: 940735 1 Tablet(s) PO daily 04/14/2013 10/09/2013 Inactive Slow Fe oral RxNorm: 60286 oral No Start Date Active tizanidine 2 mg tablet RxNorm: 054645 1 Tablet(s) PO TID No Start Date Active vitamin B complex ca psule RxNorm: 1 Capsule(s) PO daily No Start Date Active diclofenac 75 mg-mis oprostol 200 mcg tablet,immediate,delayed release RxNorm: 3565477 1 Tablet(s) PO BID No Start Date Active methocarbamol 500 mg tablet RxNorm: 389095 1 Tablet(s) PO TID No Start Date Active lisinopril 20 mg-hyd rochlorothiazide 12.5 mg tablet RxNorm: 799525 1 Tablet(s) PO daily No Start Date 11/16/2014 Inactive gabapentin 300 mg ca psule RxNorm: 133399 1 Capsule(s) PO TID No Start Date 07/15/2015 Inactive cetirizine 10 mg tablet RxNorm: 0488976 1 Tablet(s) PO daily No Start Date 03/05/2016 Inactive Vitamin D2 50,000 un it capsule RxNorm: 661799 1 Capsule(s) PO QW No Start Date 04/20/2013 Inactive pantoprazole 40 mg t ablet,delayed release RxNorm: 822430 1 Tablet(s) PO daily No Start Date 10/09/2013 Inactive amitriptyline 10 mg tablet RxNorm: 480517 1 Tablet(s) PO QHS No Start Date 09/22/2016 Inactive meloxicam 7.5 mg tablet RxNorm: 983212 1 Tablet(s) PO daily No Start Date 03/19/2016 Inactive ibuprofen 200 mg tablet RxNorm: 591812 3 Tablet(s) PO TID No Start Date 11/30/2013 Inactive Advair Diskus 250 mc g-50 mcg/dose powder for inhalation RxNorm: 8164382 2 INH daily No Start Date 07/23/2015 [...] 10/10/2013 Laboratory exam ordered as part of gisele davlia general medical examination ICD-9: V72.62 10/06/2013 Swelling of extremity ICD-9: 729.81 09/15/2013 JOINT PAIN-UNSPEC ICD-9: 719.40 09/15/2013 Pleuritic chest pain ICD-9: 786.52 09/15/2013 Well woman exam with routine gynecological exam ICD-9: V72.31 09/15/2013 Nasal septal ulcer ICD-9: 478.19 09/15/2013 ANEMIA ICD-9: 285.9 08/07 DM W/O COMPLICATION TYPE II, UNCONTROLLED SNOMED: 29602307 ICD-9: 250.02 08/16/2013 Urinary tract infection ICD-9: [...] 24.3 pg 10/13/2017 Cbc With Differential Ord2 Gilchrist% 10.1 % 10/13/2017 Cbc With Differential Ord2 [...] 1.71 K/ul 10/13/2017 Cbc With Differential Ord2 Gilchrist ABS# 0.7 K/ul 10/13/2017 Cbc With Differential Ord2 Eos ABS# 0.1 K/ul 10/13/2017 Cbc With Differential Ord2 Baso ABS# 0.0 K/ul 10/13/2017 %Hba1C Qgw749 % HbA1c 15433-2 6.3 % 10/13/2017 %Hba1C Pmb012 Gluc Ave 134 mg/dL 10/13/2017 Comp Metabolic Gdc702 NA 144 mEq/L 10/13/2017 Comp Metabolic Sbg874 K 4.2 mEq/L 10/13/2017 Comp Metabolic Ils643 CL 110 mEq/L 10/13/2017 Comp Metabolic Dqm735 CO2 25.0 mEq/L 10/13/2017 Comp Metabolic Yjp300 AN ION GAP 13 10/13/2017 Comp Metabolic Tcv852 GL UCOSE 99 mg/dL 10/13/2017 Comp Metabolic Bgs976 Cr eat 0.6 mg/dL 10/13/2017 Comp Metabolic Ync977 eG FR 116 ml/min/1.73m2 09/2017 Comp Metabolic Gea092 BUN 11 mg/dL 10/13/2017 Comp Metabolic Ioj302 B/ C Ratio 19.0 Ratio 10/13/2017 Comp Metabolic Eoc904 CA LCIUM 9.1 mg/dL 10/13/2017 Comp Metabolic Ngo215 AL K PHOS 134 U/L 10/13/2017 Comp Metabolic Dnl294 T(SGOT) 18 U/L 10/13/2017 Comp Metabolic Hpj829 AL T(SGPT) 17 U/L 10/13/2017 Comp Metabolic Rld938 BI LI T 0.4 mg/dL 10/13/2017 Comp Metabolic Ucj005 AL BUMIN 4.0 g/dL 10/13/2017 Comp Metabolic Tdk553 TP RO 6.6 g/dL 10/13/2017 Comp Metabolic Apb248 GL OB 2.6 g/dL 10/13/2017 Comp Metabolic Wev470 A/ G Ratio 1.5 Ratio 10/13/2017 Comp Metabolic Chn064 Os mo 286 mOsmo 10/13/2017 Vitamin D 25 Oh Xpa7110 VITAMIN D, 25 HYDROXY 55.13 ng/mL 10/13/2017 I Fecal Occult Blood Eca8252 IFOB Negative 05/13/2017 B12 Rir679 B12 427.00 pg/ml 05/12/2017 Tibc Ord40 Iron 35 ug/dl 05/12/2017 Tibc Ord40 UIBC 412 ug/dL 05/12/2017 Tibc Ord40 TIBC 447 ug/dL 05/12/2017 Tibc Ord40 Fe-%Sat 7.8 % 05/12/2017 Ferritin Ord22 FERRITIN 7.2 ng/mL 05/12/2017 Comp Metabolic Uqn882 NA 142 mEq/L 05/12/2017 Comp Metabolic Bxu793 K 4.0 mEq/L 05/12/2017 Comp Metabolic Aeb865 CL 106 mEq/L 05/12/2017 Comp Metabolic Cth772 CO2 26.0 mEq/L 05/12/2017 Comp Metabolic Spt679 AN ION GAP 14 05/12/2017 Comp Metabolic Occ075 GL UCOSE 137 mg/dL 05/12/2017 Comp Metabolic Pmy926 Cr eat 0.6 mg/dL 05/12/2017 Comp Metabolic Qpw186 eG FR 116 ml/min/1.73m2 08/2017 Comp Metabolic Jnb503 BUN 9 mg/dL 05/12/2017 Comp Metabolic Enr671 B/ C Ratio 15.5 Ratio 05/12/2017 Comp Metabolic Ynh772 CA LCIUM 8.8 mg/dL 05/12/2017 Comp Metabolic Kwm139 AL K PHOS 171 U/L 05/12/2017 Comp Metabolic Thw360 T(SGOT) 18 U/L 05/12/2017 Comp Metabolic Rsn957 AL T(SGPT) 17 U/L 05/12/2017 Comp Metabolic Not609 BI LI T 0.2 mg/dL 05/12/2017 Comp Metabolic Qeh227 AL BUMIN 3.9 g/dL 05/12/2017 Comp Metabolic Tfo742 TP RO 6.5 g/dL 05/12/2017 Comp Metabolic Fzk641 GL OB 2.6 g/dL 05/12/2017 Comp Metabolic Owq804 A/ G Ratio 1.5 Ratio 05/12/2017 Comp Metabolic Xso528 Os mo 284 mOsmo 05/12/2017 Iron Ord72 Iron 33 ug/dl 05/12/2017 Vitamin D 25 Oh Crh0498 VITAMIN D, 25 HYDROXY 31.02 ng/mL 05/12/2017 [...] 22.7 % 05/12/2017 Cbc With Differential Ord2 Gilchrist% 8.1 % 05/12/2017 Cbc With Differential Ord2 [...] 1.54 K/ul 05/12/2017 Cbc With Differential Ord2 Gilchrist ABS# 0.6 K/ul 05/12/2017 Cbc With Differential Ord2 Eos ABS# 0.2 K/ul 05/12/2017 Cbc With Differential Ord2 Baso ABS# 0.0 K/ul 05/12/2017 %Hba1C Gqn185 % HbA1c 19777-5 6.6 % 05/12/2017 %Hba1C Wja003 Gluc Ave 143 mg/dL 05/12/2017 Tsh Ord6 TSH (3rd IS) 3.18 uIU/mL 05/12/2017 Lymes Disease Total Antibodies With Western Blot Refle x 270684 B. BURGDORFERI, IGG/IGM 0.048 12/08/2016 Lymes Disease Total Antibodies With Western Blot Refle x 918091 12/08/2016 Alena Reflex Profile [id number] ALENA (VENTUR[place]) SCREEN NONE DETECTED 017 Ehrlichia Chaffeensis Antibody Igm 033099 EHRLICHIA CHAFFEENSIS IGM < 1:16 12/05/2016 [place] Spotted Fever Igg/Igm 68312 3 GUME MT SPOTTED FEVER IGM EIA . 12/05/2016 [place] Spotted Fever Igg/Igm 11282 3 RMSF, IGM 0.43 index 12/05/2016 [place] Spotted Fever Igg/Igm 92052 3 GUME MT SPOTTED FEVER IGG EIA FLEX . 12/05/2016 [place] Spotted Fever Igg/Igm 57301 3 RMSF, IGG SCREEN-FLEX Negative 12/05/2016 Ehrlichia Chaffeensis Antibody Igg 818946 EHRLICHIA CHAFFEENSIS IGG <1:64 12/05/2016 Tibc Ord40 Iron 37 ug/dl 12/02/2016 Tibc Ord40 UIBC 372 ug/dL 12/02/2016 Tibc Ord40 TIBC 409 ug/dL 12/02/2016 Tibc Ord40 Fe-%Sat 9.0 % 12/02/2016 Ferritin Ord22 FERRITIN 13.9 ng/mL 12/02/2016 B12 Xkh518 B12 344.00 pg/ml 12/02/2016 %Hba1C Fzo432 % HbA1c 00723-3 6.1 % 12/01/2016 %Hba1C Cpu551 Gluc Ave 128 mg/dL 12/01/2016 Cbc With [...] 26.2 pg 12/01/2016 Cbc With Differential Ord2 Gilchrist% 8.8 % 12/01/2016 Cbc With Differential Ord2 [...] 1.75 K/ul 12/01/2016 Cbc With Differential Ord2 Gilchrist ABS# 0.6 K/ul 12/01/2016 Cbc With Differential Ord2 Eos ABS# 0.4 K/ul 12/01/2016 Cbc With Differential Ord2 Baso ABS# 0.1 K/ul 12/01/2016 Tsh Ord6 hTSH II 1.80 uIU/mL 12/01/2016 C-Reactive Protein Qnt Crqnt CRP 1.5 mg/dl 12/01/2016 Sed Rate Ord21 ESR 14 mm/hr 12/01/2016 Ra Factor Gme354 RA FACT OR <10 IU/ml 12/01/2016 Vitamin D 25 Oh Men9394 VITAMIN D, 25 HYDROXY 30.98 ng/mL 12/01/2016 Comp Metabolic Bjj270 NA 140 mEq/L 12/01/2016 Comp Metabolic Rmw706 K 3.9 mEq/L 12/01/2016 Comp Metabolic Yrb558 CL 106 mEq/L 12/01/2016 Comp Metabolic Ule781 CO2 26.0 mEq/L 12/01/2016 Comp Metabolic Arz102 AN ION GAP 12 12/01/2016 Comp Metabolic Pnj379 GL UCOSE 147 mg/dL 12/01/2016 Comp Metabolic Mox854 Cr eat 0.6 mg/dL 12/01/2016 Comp Metabolic Azl669 eG FR 114 ml/min/1.73m2 11/08 Comp Metabolic Czl862 BUN 11 mg/dL 12/01/2016 Comp Metabolic Pff266 B/ C Ratio 18.6 Ratio 12/01/2016 Comp Metabolic Akd155 CA LCIUM 8.8 mg/dL 12/01/2016 Comp Metabolic Ogi836 AL K PHOS 138 U/L 12/01/2016 Comp Metabolic Tzs039 T(SGOT) 34 U/L 12/01/2016 Comp Metabolic Hjb700 AL T(SGPT) 26 U/L 12/01/2016 Comp Metabolic Jjm260 BI LI T 0.3 mg/dL 12/01/2016 Comp Metabolic Wzg450 AL BUMIN 3.8 g/dL 12/01/2016 Comp Metabolic Xtv628 TP RO 6.2 g/dL 12/01/2016 Comp Metabolic Uqd159 GL OB 2.4 g/dL 12/01/2016 Comp Metabolic Rfw766 A/ G Ratio 1.6 Ratio 12/01/2016 Comp Metabolic Hdn430 Os mo 281 mOsmo 12/01/2016 %Hba1C Hmx500 % HbA1c 30053-3 6.3 % 08/05/2016 %Hba1C Skx140 Gluc Ave 134 mg/dL 08/05/2016 Alena [id number] ALENA (VENTURA) S CREEN NONE DETECTED 017 Vitamin D 25 Oh Edy7326 VITAMIN D, 25 HYDROXY 32.26 ng/mL 03/07/2016 Ra Factor Cbz434 RA FACT OR <10 IU/ml 03/07/2016 C-Reactive Protein Qnt Crqnt CRP 2.0 mg/dl 03/06/2016 Sed Rate Ord21 ESR 32 mm/hr 03/06/2016 %Hba1C Ise597 % HbA1c 99192-8 6.3 % 03/06/2016 %Hba1C Aie511 Gluc Ave 134 mg/dL 03/06/2016 Comp Metabolic Udq645 NA 138 mEq/L 03/06/2016 Comp Metabolic Tod397 K 4.3 mEq/L 03/06/2016 Comp Metabolic Ogi890 CL 103 mEq/L 03/06/2016 Comp Metabolic Iaj718 CO2 23.0 mEq/L 03/06/2016 Comp Metabolic Puu093 AN ION GAP 16 03/06/2016 Comp Metabolic Myn770 GL UCOSE 148 mg/dL 03/06/2016 Comp Metabolic Oyc678 Cr eat 0.6 mg/dL 03/06/2016 Comp Metabolic Ero826 eG FR 104 ml/min/1.73m2 02/07 Comp Metabolic Woe493 BUN 13 mg/dL 03/06/2016 Comp Metabolic Wwp313 B/ C Ratio 20.3 Ratio 03/06/2016 Comp Metabolic Ihy406 CA LCIUM 9.7 mg/dL 03/06/2016 Comp Metabolic Zej301 AL K PHOS 146 U/L 03/06/2016 Comp Metabolic Lah835 T(SGOT) 25 U/L 03/06/2016 Comp Metabolic Kii411 AL T(SGPT) 25 U/L 03/06/2016 Comp Metabolic Obp863 BI LI T 0.3 mg/dL 03/06/2016 Comp Metabolic Elj852 AL BUMIN 4.1 g/dL 03/06/2016 Comp Metabolic Qzg761 TP RO 6.9 g/dL 03/06/2016 Comp Metabolic Fgd129 GL OB 2.8 g/dL 03/06/2016 Comp Metabolic Ukq904 A/ G Ratio 1.5 Ratio 03/06/2016 Comp Metabolic Tzy621 Os mo 279 mOsmo 03/06/2016 Cbc With [...] 27.1 pg 03/06/2016 Cbc With Differential Ord2 Gilchrist% 9.2 % 03/06/2016 Cbc With Differential Ord2 [...] 1.35 K/ul 03/06/2016 Cbc With Differential Ord2 Gilchrist ABS# 0.5 K/ul 03/06/2016 Cbc With Differential Ord2 Eos ABS# 0.2 K/ul 03/06/2016 Cbc With Differential Ord2 Baso ABS# 0.1 K/ul 03/06/2016 Tsh Ord6 hTSH II 3.61 uIU/mL 03/06/2016 Culture Urine [id number] URI NE CULTURE SEE NOTES 08/20/2015 Culture Urine [id number] Con tinued Results 08/20/2015 Urine Culture Ucult Comp lete Growth of aerobe sent to ref lab 08/18/2015 Vitamin D 25 Oh Ptc5445 VITAMIN D, 25 HYDROXY 24.39 ng/mL 07/18/2015 Comp Metabolic Kwi233 NA 136 mEq/L 07/17/2015 Comp Metabolic Pte707 K 4.0 mEq/L 07/17/2015 Comp Metabolic Fez638 CL 100 mEq/L 07/17/2015 Comp Metabolic Vqe458 CO2 27.0 mEq/L 07/17/2015 Comp Metabolic Exr300 AN ION GAP 13 07/17/2015 Comp Metabolic Mll740 GL UCOSE 121 mg/dL 07/17/2015 Comp Metabolic Ewu360 Cr eat 0.7 mg/dL 07/17/2015 Comp Metabolic Amf890 eG FR 96 ml/min/1.73m2 07/16 Comp Metabolic Wrn310 BUN 10 mg/dL 07/17/2015 Comp Metabolic Xsw895 B/ C Ratio 14.5 Ratio 07/17/2015 Comp Metabolic Qqb459 CA LCIUM 8.9 mg/dL 07/17/2015 Comp Metabolic Yod144 AL K PHOS 146 U/L 07/17/2015 Comp Metabolic Fch705 T(SGOT) 20 U/L 07/17/2015 Comp Metabolic Viu204 AL T(SGPT) 22 U/L 07/17/2015 Comp Metabolic Mrc424 BI LI T 0.4 mg/dL 07/17/2015 Comp Metabolic Iwq016 AL BUMIN 4.0 g/dL 07/17/2015 Comp Metabolic Cke725 TP RO 6.6 g/dL 07/17/2015 Comp Metabolic Wuy455 GL OB 2.6 g/dL 07/17/2015 Comp Metabolic Ply997 A/ G Ratio 1.6 Ratio 07/17/2015 Comp Metabolic Ant982 Os mo 272 mOsmo 07/17/2015 Sed Rate [...] 26.1 pg 07/17/2015 Cbc With Differential Ord2 Gilchrist% 12.6 % 07/17/2015 Cbc With Differential Ord2 [...] 1.25 K/ul 07/17/2015 Cbc With Differential Ord2 Gilchrist ABS# 0.9 K/ul 07/17/2015 Cbc With Differential [...] Crqnt CRP 2.9 mg/dl 07/17/2015 GFR CALC 1332340 GFR AA >60 ML/MIN 10/06/2013 GFR CALC 1191917 GFR NON -AA >60 ML/MIN 10/06/2013 CHEM 14 5679700 AST 34 U/L 10/06/2013 CHEM 14 2679150 ALT 30 IU/L 10/06/2013 CHEM 14 4436407 BUN 11 MG/DL 10/06/2013 CHEM 14 1354084 ALBUMIN 4.4 GM/DL 10/06/2013 CHEM 14 2045771 CHLORIDE 107 MMOL/L 10/06/2013 CHEM 14 3883064 BILI TOT 0.4 MG/DL 10/06/2013 CHEM 14 9114523 ALK PHOS 133 U/L 10/06/2013 CHEM 14 9115944 SODIUM 140 MMOL/L 10/06/2013 CHEM 14 6036360 CREATINI NE 0.67 MG/DL 10/06/2013 CHEM 14 8338018 CALCIUM 9.3 MG/DL 10/06/2013 CHEM 14 8130316 POTASSIUM 4.0 MMOL/L 10/06/2013 CHEM 14 1837767 PROT TOT 7.1 GM/DL 10/06/2013 CHEM 14 9922224 GLUCOSE 108 MG/DL 10/06/2013 CHEM 14 9176371 BICARB 25 MMOL/L 10/06/2013 CHEM 14 8362927 ANION GAP 8 MEQ/L 10/06/2013 VIT D TOTL 4920327 VIT D TOTL 37 NG/ML 10/06/2013 GC/CHL PRB 1142777 CHLM PROBE NEG 09/21/2013 GC/CHL PRB 2319838 GC PA OBE NEG 09/21/2013 DNA AB 4244776 DNA AB 36 IU/ML 09/17/2013 RA FACTOR 4998530 RA FAC TOR <20.0 IU/ML 09/16/2013 SM MUSC AB 0600255 SM MU SC AB <1:20 09/16/2013 CARDIO G/M 0278095 CARDI O IGG 1.7 GPLU 09/16/2013 CARDIO G/M 1421642 CARDI O IGM 4.8 MPLU 09/16/2013 ALENA SCR [id number] ALENA SCR <1:80 09/16/2013 CRP [id number] CRP 1.1 MG/DL 09/15/2013 ESR 6969684 ESR 22 MM/HR 09/15/2013 CBC 8287229 WBC 5.5 10e9/L 04/26/2013 CBC 7488289 RBC 4.89 10e12/L 04/26/2013 CBC 6887514 HGB 12.8 g/dL 04/26/2013 CBC 8624970 HCT DET 39.5 % 04/26/2013 CBC 6977414 MCV 80.8 fL 04/26/2013 CBC 3143713 MCH 26.2 pg 04/26/2013 CBC 2366807 MCHC 32.4 g/dL 04/26/2013 CBC 2978433 PLT 299 10e9/L 04/26/2013 CBC 5485309 MPV 10.9 fL 04/26/2013 CBC 0133541 WAN % 59.0 % 04/26/2013 CBC 3467999 LY % 29.6 % 04/26/2013 CBC 2326716 MON % 9.1 % 04/26/2013 CBC 7882398 EOS % 1.8 % 04/26/2013 CBC 3925867 BASO % 0.5 % 04/26/2013 CBC 6399458 RDW 13.9 % 04/26/2013 CBC 1830076 ABS WAN 3.25 10e9/L 04/26/2013 CBC 8022713 ABS LYMPH 1.63 10e9/L 04/26/2013 CBC 2235614 ABS MONO 0.50 10e9/L 04/26/2013 CBC 0949973 ABS EOS 0.10 10e9/L 04/26/2013 CBC 7911681 ABS BASO 0.03 10e9/L 04/26/2013 CBC 5756126 RDW-SD 39.9 fL 04/26/2013 URINALYSIS NONAUTO W/O SCOPE 33824 Specific [place] 1.020 DateTime(Free Text in Aprima) URINALYSIS NONAUTO W/O SCOPE 85148 PH 6.0 DateTime(Free Rik t in Apr) URINALYSIS NONAUTO W/O SCOPE 46419 GLUCOSE neg DateTime(Free Rik t in Aprima) URINALYSIS NONAUTO W/O SCOPE 79449 Protein neg DateTime(Free Rik t in Apr) URINALYSIS NONAUTO W/O SCOPE 01475 Blood neg DateTime(Free Rik t in Aprima) URINALYSIS NONAUTO W/O SCOPE 25274 Bilirubin neg DateTime(Free Rik t in Apr) URINALYSIS NONAUTO W/O SCOPE 39786 Ketones neg DateTime(Free Rik t in Aprima) URINALYSIS NONAUTO W/O SCOPE 01441 Urobilinogen neg DateTime(Free Text in Aprima) URINALYSIS NONAUTO W/O SCOPE 50632 Nitrite neg DateTime(Free Rik t in ) URINALYSIS NONAUTO W/O SCOPE 18888 Leukocytes 1+ DateTime(Free Text in ) Review [...] time 06/06/2013 None Full Exam - General 1995 Eyes pupils and irises Overall: pupils equal, [...] lips 04/14/2013 None Full Exam - General 1995 Ears/Nose/Throat lips/teeth/gingiva Overall: normal dentition 04/14/2013 None Full Exam - General 1994 Ears/Nose/Throat oral cavity/pharynx/larynx Overall: hypopharynx benign 04/14/2013 None Full Exam - General 1995 Ears/Nose/Throat oral cavity/pharynx/larynx Overall: no masses 04/14/2013 [...] Date URINALYSIS NONAUTO W /O SCOPE CPT-4: 62089 11/02/2017 OCCULT BLOOD FECES CPT- 4: 99615 12/08/2016 IMMUNIZATION ADMIN CPT- 4: 81678 12/07/2015 FLU VACC 4 AMBER 3 YRS PLUS IM SNOMED CT: [id number] CPT-4: 34137 12/07/2015 URINALYSIS NONAUTO W /O SCOPE CPT-4: 03689 08/17/2015 CHEM 14 (COMPREHEN M ETABOLIC PANEL) CPT-4: 23541 10/06/2013 VIT D TOTL (VITAMIN D 25 HYDROXY) CPT-4: 60255 10/06/2013 CRP (C-REACTIVE PROT EIN) CPT-4: 81211 09/15/2013 ESR (RBC SED RATE AU TOMATED) CPT-4: 30287 09/15/2013 ROUTINE VENIPUNCTURE CPT-4: 91719 09/15/2013 URINALYSIS NONAUTO W /O SCOPE CPT-4: 94022 08/16/2013 C URINE RT CPT-4: 9337373 08/16/2013 C URINE RT (URINE CU LTURE/COLONY COUNT) CPT-4: 79911 08/16/2013 ROUTINE VENIPUNCTURE CPT-4: 14784 04/26/2013 Vital Signs Date Vital 04/22/2018 Heigh t: Weight: 04/20/2018 Blood Pressure 1: 150/90 Code: 8480-6 Heart Rate 1: 104 bpm Height: SpO2: 95% Weight: 11/02/2017 Blood Pressure 1: 130/76 Code: 8480-6 BMI: 37.6 Code: 86431-1 Heart Rate 1: 68 bpm Height: 5'5" SpO2: 98% Weight: 226 lbs 10/13/2017 Blood Pressure 1: 140/86 Code: 8480-6 BMI: 37.4 Code: 80146-0 Heart Rate 1: 78 bpm Height: 5'5" SpO2: 98% Weight: 225 lbs 07/20/2017 Blood Pressure 1: 128/80 Code: 8480-6 BMI: 39.1 Code: 75334-5 Heart Rate 1: 75 bpm Height: 5'5" SpO2: 98% Weight: 235 lbs 06/09/2017 Blood Pressure 1: 150/92 Code: 8480-6 BMI: 39.1 Code: 16447-1 Heart Rate 1: 106 bpm Height: 5'5" SpO2: 98% Weight: 235 lbs 05/12/2017 Blood Pressure 1: 144/68 Code: 8480-6 BMI: 38.9 Code: 65534-5 Heart Rate 1: 89 bpm Height: 5'5" SpO2: 98% Weight: 234 lbs 12/01/2016 Blood Pressure 1: 140/88 Code: 8480-6 BMI: 39.6 Code: 45808-0 Heart Rate 1: 101 bpm Height: 5'5" SpO2: 97% Weight: 238 lbs 08/05/2016 Blood Pressure 1: 134/82 Code: 8480-6 Heart Rate 1: 113 bpm Height: 5'5" SpO2: 98% 07/22/2016 Blood Pressure 1: 142/84 Code: 8480-6 BMI: 39.6 Code: 12127-4 Heart Rate 1: 103 bpm Height: 5'5" SpO2: 97% Weight: 238 lbs 03/06/2016 Blood Pressure 1: 138/86 Code: 8480-6 Heart Rate 1: 100 bpm SpO2: 96% Weight: 246 lbs 12/07/2015 Blood Pressure 1: 140/78 Code: 8480-6 BMI: 40.8 Code: 28378-0 Heart Rate 1: 97 bpm Height: 5'6" SpO2: 98% Weight: 250 lbs 11/09/2015 Blood Pressure 1: 118/84 Code: 8480-6 BMI: 40.7 Code: 56654-0 Heart Rate 1: 85 bpm Height: 5'6" SpO2: 98% Weight: 249 lbs 08/17/2015 Blood Pressure 1: 122/82 Code: 8480-6 BMI: 39.4 Code: 83708-0 Heart Rate 1: 86 bpm Height: 5'6" SpO2: 95% Weight: 241 lbs 07/24/2015 Blood Pressure 1: 118/76 Code: 8480-6 BMI: 39.9 Code: 66961-1 Heart Rate 1: 97 bpm Height: 5'6" SpO2: 96% Weight: 244 lbs 07/16/2015 Blood Pressure 1: 158/80 Code: 8480-6 Blood Pressure 1: 120/86 Code: 8480-6 Heart Rate 1: 105 bpm Height: 5'6" SpO2: 98% Weight: 06/12/2015 Blood Pressure 1: 128/82 Code: 8480-6 BMI: 39.9 Code: 68565-8 Heart Rate 1: 89 bpm Height: 5'6" SpO2: 98% Weight: 244 lbs 03/08/2015 Blood Pressure 1: 130/86 Code: 8480-6 Heart Rate 1: 98 bpm Height: 5'6" SpO2: 97% Weight: 12/29/2014 Blood Pressure 1: 138/88 Code: 8480-6 BMI: 39.2 Code: 31371-4 Heart Rate 1: 109 bpm Height: 5'6" SpO2: 97% Weight: 240 lbs 11/17/2014 Blood Pressure 1: 170/98 Code: 8480-6 BMI: 39.7 Code: 86697-3 Heart Rate 1: 92 bpm Height: 5'6" SpO2: 98% Weight: 243 lbs 05/16/2014 Blood Pressure 1: 130/82 Code: 8480-6 BMI: 39.2 Code: 78600-9 Heart Rate 1: 88 bpm Height: 5'6" Weight: 240 lbs 04/04/2014 Blood Pressure 1: 146/92 Code: 8480-6 Blood Pressure 2: 136/86 Code: 8480-6 BMI: 39.9 Code: 17305-1 Heart Rate 1: 68 bpm Height: 5'6" Weight: 244 lbs 12/01/2013 Blood Pressure 1: 142/80 Code: 8480-6 BMI: 38.4 Code: 18697-4 Heart Rate 1: 80 bpm Height: 5'6" Weight: 235 lbs 10/10/2013 Blood Pressure 1: 128/88 Code: 8480-6 BMI: 38.7 Code: 73266-1 Heart Rate 1: 88 bpm Height: 5'6" Weight: 237 lbs 09/15/2013 Blood Pressure 1: 112/74 Code: 8480-6 BMI: 39.0 Code: 05850-6 Heart Rate 1: 80 bpm Height: 5'6" Weight: 239 lbs 08/16/2013 Blood Pressure 1: 124/64 Code: 8480-6 BMI: 39.0 Code: 97873-2 Heart Rate 1: 88 bpm Height: 5'6" Weight: 239 lbs 06/06/2013 Blood Pressure 1: 120/72 Code: 8480-6 BMI: 37.9 Code: 60820-5 Heart Rate 1: 84 bpm Height: 5'6" Weight: 232 lbs 04/26/2013 Blood Pressure 1: 148/86 Code: 8480-6 BMI: 37.7 Code: 70579-3 Heart Rate 1: 84 bpm Height: 5'6" Weight: 231 lbs 04/14/2013 Blood Pressure 1: 148/92 Code: 8480-6 BMI: 38.2 Code: 52593-7 Heart Rate 1: 88 bpm Height: 5'6" [...] Encounters Encounter Performer Loca tion Codes Date ([id number]) Miscellaneou s no charge Diagnosis: Insect bite (nonvenomous), left lower leg, subsequent encounter[ICD10: S80.862D] Katy Manzanares MD, [facility] CPT-4: 60029 04/22/2018 ([id number]) 43181 EST. P ATIENT, LEVEL III Diagnosis: Insect bite (nonvenomous), left lower leg, initial encounter[ICD10: S80.862A] Katy Manzanares MD, [facility] CPT-4: 80883 04/20/2018 52810 EST. PATIENT, LEVEL II Diagnosis: Dysuria[ICD10: R30.0] Diagnosis: Other specified conditions associated with female genital organs and menstrual cycle[ICD10: N94.89] Katy Manzanares MD, [facility] CPT-4: 82583 11/02/2017 ([id number]) 68803 EST. 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 P ATIENT, LEVEL III Diagnosis: Essential (primary) hypertension[ICD10: I10] Katy Manzanares MD, [facility] CPT-4: 26374 07/20/2017 ([id number]) 56424 EST. P ATIENT, LEVEL III Diagnosis: Essential (primary) hypertension[ICD10: I10] Katy Manzanares MD, [facility] CPT-4: 02199 06/09/2017 ([id number]) 01716 EST. 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 P ATIENT, LEVEL IV Diagnosis: Essential [...] Diagnosis: Fever, unspecified[ICD10: R50.9] Katy Manzanares MD, [facility] CPT- 4: 23694 12/01/2016 ([id number]) 81749 EST. P ATIENT, LEVEL III Diagnosis: Impaired fasting glucose[ICD10: R73.01] Diagnosis: Low back pain[ICD10: M54.5] Diagnosis: Generalized anxiety disorder[ICD10: F41.1] [facility] CPT-4: 63699 08/05/2016 ([id number]) 61561 EST. P ATIENT, LEVEL III Diagnosis: Essential (primary) hypertension[ICD10: I10] Diagnosis: Radiculopathy, lumbar region[ICD10: M54.16] [facility] CPT-4: 13229 07/22/2016 ([id number]) Miscellaneou s no charge Diagnosis: Dysuria[ICD10: R30.0] [facility] CPT-4: 02625 06/12/2016 ([id number]) 13912 EST. P ATIENT, LEVEL IV Diagnosis: Type 2 diabetes mellitus without complications[ICD10: E11.9] Diagnosis: Vitamin D deficiency, unspecified[ICD10: E55.9] Diagnosis: Generalized anxiety disorder[ICD10: F41.1] Diagnosis: Essential (primary) hypertension[ICD10: I10] Diagnosis: Radiculopathy, cervical region[ICD10: M54.12] Diagnosis: Cardiac murmur, unspecified[ICD10: R01.1] Katy Manzanares MD, [facility] CPT-4: 81042 03/06/2016 ([id number]) 71474 EST. P ATIENT, LEVEL III Diagnosis: Generalized anxiety disorder[ICD10: F41.1] Diagnosis: Major depressive disorder, recurrent, in partial remission[ICD10: F33.41] Katy Manzanares MD, [facility] CPT-4: 60555 12/07/2015 ([id number]) 91840 EST. P ATIENT, LEVEL IV Diagnosis: Essential (primary) hypertension[ICD10: I10] Diagnosis: Generalized anxiety disorder[ICD10: F41.1] Diagnosis: Other obesity due to excess calories[ICD10: E66.09] Katy Manzanares MD, [facility] CPT-4: 83459 11/09/2015 ([id number]) 70560 EST. P ATIENT, LEVEL III Diagnosis: Urinary tract infection, site not specified[ICD10: N39.0] Katy Manzanares MD, [facility] CPT-4: 92634 08/17/2015 ([id number]) 68651 EST. P ATIENT, LEVEL III Diagnosis: Generalized anxiety disorder[ICD10: F41.1] Diagnosis: Major depressive disorder, recurrent, moderate[ICD10: F33.1] Katy Manzanares MD, [facility] CPT-4: 76594 07/24/2015 ([id number]) 88255 EST. P ATIENT, LEVEL IV Diagnosis: Myalgia[ICD10: M79.1] Diagnosis: Low back pain[ICD10: M54.5] Diagnosis: Cervicalgia[ICD10: M54.2] Diagnosis: Essential (primary) hypertension[ICD10: I10] Diagnosis: Vitamin D deficiency, unspecified[ICD10: E55.9] Diagnosis: Generalized anxiety disorder[ICD10: F41.1] [facility] CPT-4: 30105 07/16/2015 ([id number]) 91452 EST. P ATIENT, LEVEL IV Diagnosis: Cervicalgia[ICD10: M54.2] Diagnosis: Essential (primary) hypertension[ICD10: I10] Diagnosis: Low back pain[ICD10: M54.5] Diagnosis: Radiculopathy, cervical region[ICD10: M54.12] Katy Manzanares MD, [facility] CPT-4: 48259 06/12/2015 91678 EST. PATIENT, LEVEL III Diagnosis: Sacroiliitis, not elsewhere classified[ICD10: M46.1] Diagnosis: Low back pain[ICD10: M54.5] Diagnosis: Pain in left hip[ICD10: M25.552] Diagnosis: Pain in right hip[ICD10: M25.551] Samantha Manzanares MD, [facility] CPT-4: 10637 03/08/2015 67384 EST. PATIENT, LEVEL III Diagnosis: Anxiety disorder due to known physiological condition[ICD10: F06.4] Diagnosis: Mood disorder due to known physiological condition with depressive features[ICD10: F06.31] Diagnosis: Flushing[ICD10: R23.2] Samantha Manzanares MD, [facility] CPT-4: 02647 12/29/2014 ([id number]) 26524 EST. P ATIENT, LEVEL IV Diagnosis: ESSENTIAL HYPERTENSION[ICD9: 401.9] Diagnosis: Anxiety[ICD9: 300.00] Diagnosis: Depression[ICD9: 311] Katy Manzanares MD, [facility] CPT-4: 90978 11/17/2014 ([id number]) 52449 EST. P ATIENT, LEVEL IV Diagnosis: Anxiety[ICD9: 300.00] Diagnosis: Depression[ICD9: 311] Diagnosis: DIABETES TYPE II[ICD9: 250.00] Diagnosis: Vitamin D deficiency[ICD9: 268.9] Diagnosis: ESSENTIAL HYPERTENSION[ICD9: 401.9] Diagnosis: ABNORMAL WEIGHT GAIN[ICD9: 783.1] Katy Manzanares MD, [facility] CPT- 4: 66423 05/16/2014 ([id number]) 12705 EST. P ATIENT, LEVEL IV Diagnosis: ESSENTIAL HYPERTENSION[ICD9: 401.9] Diagnosis: Anxiety[ICD9: 300.00] Diagnosis: Depression[ICD9: 311] Katy Manzanares MD, [facility] CPT-4: 31914 04/04/2014 ([id number]) 60888 EST. P ATIENT, LEVEL IV Diagnosis: Diarrhea[ICD9: 787.91] Diagnosis: Epigastric pain[ICD9: 789.06] Diagnosis: ESOPHAGEAL REFLUX[ICD9: 530.81] Diagnosis: Blood in stool[ICD9: 578.1] Katy Manzanares MD, [facility] CPT- 4: 35377 12/01/2013 ([id number]) 05196 EST. P ATIENT, LEVEL IV Diagnosis: Vitamin D deficiency[ICD9: 268.9] Diagnosis: DIABETES TYPE II[ICD9: 250.00] Diagnosis: Depression[ICD9: 311] Diagnosis: Insomnia[ICD9: 780.52] Ally Manzanares MD, [facility] CPT-4: 57365 10/10/2013 ([id number]) PREV VISIT E ST AGE 40-64 Diagnosis: Well woman exam with routine gynecological exam[ICD9: V72.31] Diagnosis: JOINT PAIN-UNSPEC[ICD9: 719.40] Diagnosis: Nasal septal ulcer[ICD9: 478.19] Diagnosis: Swelling of extremity[ICD9: 729.81] Diagnosis: Pleuritic chest pain[ICD9: 786.52] Katy Manzanares MD, [facility] CPT-4: 55943 09/15/2013 ([id number]) 40280 EST. P ATIENT, LEVEL IV Diagnosis: DM W/O COMPLICATION TYPE II, UNCONTROLLED[SNOMED: 69148491] Diagnosis: Urinary tract infection[ICD9: 599.0] Diagnosis: DEPRESSIVE DISORDER NEC[ICD9: 311] Diagnosis: Anxiety[ICD9: 300.00] Diagnosis: Insomnia[ICD9: 780.52] Diagnosis: ANEMIA[ICD9: 285.9] Katy Manzanares MD, [facility] CPT-4: 10118 08/16/2013 ([id number]) 29285 EST. P ATIENT, LEVEL III Diagnosis: DM w/o complication type II, uncontrolled[SNOMED: 14756851] Ally Manzanares MD, [facility] CPT-4: 83015 06/06/2013 ([id number]) 09951 EST. P ATIENT, LEVEL III Diagnosis: DIABETES TYPE II[SNOMED: 985572808] [facility] CPT- 4: 48663 04/26/2013 ([id number]) OFFICE VISI T, NEW - LEVEL 4 Diagnosis: Elevated blood pressure[ICD9: 796.2] Diagnosis: Depression[ICD9: 311] Diagnosis: Elevated alkaline phosphatase level[ICD9: 790.5] Diagnosis: Elevated glucose[ICD9: 790.29] [facility] CPT-4: 61355 04/14/2013 Plan of Care Planned Activity Notes C odes Status Date Visit Plan: Spdier bite -much impro itzel-return next Thursday for follow up -continue wound care as directed 04/22/2018 Appointment: Katy Do WPtel: [address] [place], [place] [phone] (30 min) Complex 04/22/2018 Patient Education: Patient Medication Summary Completed 04/22/2018 Visit Plan: Cellulitis - start oral antibiotics as directed, return to clinic for wound check, call for acute change in symptoms, worsening redness, warmth, discharge. 04/20/2018 Appointment: Katy Do WPtel: [address] [place], [place] [phone] (10 min) Simple 04/20/2018 Patient Education: Patient Medication Summary Completed 04/20/2018 Visit Plan: Erythema of labia- dysu vonda -UA negative-yeast infection vs vulvar lichen sclerosis -rx sent to patient's pharmacy and instructed on use -call if symptoms do not resolve of if any worse. Patient verbalized understanding of plan. 11/02/2017 Appointment: Katy Do WPtel: [address] [place], [place] [phone] (15 min) Moderate 11/02/2017 Patient Education: Patient [...] current medications. 10/13/2017 Appointment: Katy Do WPtel: [address] [place] [address] (30 min) Complex 10/13/2017 Patient Education: Patient Medication Summary Completed 10/13/2017 Appointment: Katy Do WPtel: [address] [place] [address] (15 min) Moderate 08/20/2017 Visit Plan: Hypertension - well con trolled but bystolic is not covered-will switch to metoprolol- continue other medications, continue with no added salt diet. Pt has been encouraged to exercise daily. The pt has been advised to call the office if there are any acute concerns about change in blood pressure readings at home. 07/20/2017 Appointment: Katy Do WPtel: [address] [place] [address] (15 min) Moderate 07/20/2017 Patient Education: Patient Medication Summary Completed 07/20/2017 Appointment: Katy Do WPtel: [address] [place] [address] (15 min) Moderate 07/14/2017 Visit Plan: Hypertension [...] iron supplement 05/12/2017 Appointment: Katy Do WPtel: [address] [place], [place] [phone] (30 min) [facility] 05/12/2017 Patient Education: Patient Medication Summary Completed 05/12/2017 Patient Education: Patient Medication Summary Completed 05/12/2017 Care Plan: SCREENINGMAMMOGRAPHYDIGITAL LOINC : 38148-8 Pending 05/12/2017 Appointment: Lab Draw 12/08/2016 Patient [...] tick panel 12/01/2016 Appointment: Katy Do WPtel: [facility]5 [phone] (30 min) Complex 12/01/2016 Patient Education: Patient Medication Summary Completed 12/01/2016 Patient Education: Obesity Completed 12/01/2016 Care Plan: Lymes Disease Antibobies Igg/ Igm Pending 12/01/2016 Visit Plan: Elevated glucose-check Hgb A1C Low back pain-will write letter on patient's behalf for insurance precertification Hnuziqk-sfwohslcve-czaa controlled-no changes 08/05/2016 Appointment: Katy Do WPtel: [phone] (30 min) Complex 08/05/2016 Patient Education: [...] next month. 07/22/2016 Appointment: [facility] Do [facility]el[phone] (15 min) Moderate 07/22/2016 Patient [...] Echo 03/06/2016 Appointment: Katy Do WPtel: [phone] [phone] (30 min) Complex 03/06/2016 Patient Education: [...] current medications. 12/07/2015 Appointment: Katy Do WPtel: [address] [place] [address] (30 min) Complex 12/07/2015 Patient Education: Patient [...] weight check. 11/09/2015 Appointment: Katy Do WPtel: [address] [place], [place] [phone] [place] [address] (30 min) Complex 11/09/2015 Patient Education: Patient Medication Summary Completed 11/09/2015 Patient Education: Obesity Completed 11/09/2015 Care Plan: BMI Above normal followup LOLI F-MGMT EDUC & TRAIN 1 PT Pending 11/09/2015 Appointment: Katy Do WPtel: [address] [place], [place] [phone] (30 min) Complex 11/08/2015 Appointment: Katy Do WPtel: [address] [place], [place] [phone] [address] (15 min) Moderate 08/23/2015 Visit Plan: Urinary [...] D level 07/24/2015 Appointment: Katy Do WPtel: [phone] (30 min) [facility] 07/24/2015 Patient Education: Patient Medication Summary Completed [...] in blood pressure readings at home. Neck kjxm-fbfudmilnmjxo-slijd to Dr Mckee for evaluation-patient has been [...] min) Moderate 09/04/2014 Appointment: Katy Do WPtel: [address] [place] [phone] Follow up 07/07/2014 Visit Plan: Anxiety and [...] up 05/09/2014 Visit Plan: Hypertension - well leighton briceño - continue with current medications, continue with [...] 12/01/2013 Care Plan: Referral Order SNOMED-CT : [id number] Ordered 12/01/2013 Visit Plan: Diabetes Mellitus - [...] for insomnia. 10/10/2013 Appointment: Ally Manzanares WPtel: [address] [place], [place] [phone] Follow up 10/10/2013 Patient Education: Patient Medication Summary Completed 10/10/2013 Appointment: Ally Manzanares WPtel: [address] [place], [place] [phone] Lab Draw 10/06/2013 Patient Education: Patient Medication Summary Completed 10/06/2013 Appointment: Ally Manzanares WPtel: [address] [place], [place] [phone] [place] Follow up 10/04/2013 Visit Plan: Well [...] or prn. Joint pain-pleuritic chest pain-swelling of grwd-ajgoura-ffikcpo for autoimmune disease such as lupus-plan to check labs and proceed as indicated. Instructed patient we will call her with results of labs. 09/15/2013 Appointment: Katy Do WPtel: [phone] [place] Pap Only 09/15/2013 Patient Education: [...] iron panel 08/16/2013 Appointment: Kat[facility] Do WPtel[phone] Follow up 08/16/2013 Patient Education: Patient Medication Summary Completed 08/16/2013 Care Plan: C URINE RT Pending 08/16/2013 Appointment: Kat[facility] Do WPtel[phone] Follow up 08/09/2013 Appointment: [facility]anares WPtel: [facility] [place] Follow up 08/08/2013 Visit Plan: Diabetes [...] glucose control. 06/06/2013 Appointment: Ally Manzanares WPtel: [address] [place], [place] [phone] Follow up 06/06/2013 Patient Education: Patient Medication Summary Completed 06/06/2013 Appointment: Ally Manzanares WPtel: [address] [place] [address] Follow up 05/12/2013 Visit Plan: Diabetes Mellitus [...] glucose control. 04/26/2013 Appointment: Katy Do WPtel: [address] [place], [place] [phone] [place] [address] Diabetic education 04/26/2013 Patient Education: Patient Medication [...] and hgba1c. 04/14/2013 Appointment: Ally Manzanares WPtel: [address] [place] [address] New Patient 04/14/2013 Patient Education: Patient Medication Summary Completed 04/14/2013 Appointment: Ally Manzanares WPtel: [address] [place], [place] [phone] New Patient 04/05/2013 Referral: Dr [...] follow up -continue wound care as directed . Elevated Blood Pr essure - without [...] Elevated glucose - check glucose and hgba1c. LEXAPRO 10MG DAILY I N THE EVENING [...] prevent diarrhea. Patient verbalized understanding of plan. STOP BYSTOLIC-START METOPROLOL . Hypertension - well controlled but bys tolic is not covered-will switch to metoprolol- continue other medications, continue with no added salt diet. Pt has been encouraged to exercise daily. The pt has been advised to call the office if there are any acute concerns about change in blood pressure readings at home. . Hypertension - unc ontrolled - the [...] any worse. Patient verbalized understanding of plan. CHECK LABS schedule ECHO . Hypertension - [...] pills daily keep metformin at current dose. pick up worker RX for vitamin D 36658 units weekly. . Diabetes Mellitus - controlled [...] situational exposure. No change in current medications. INCREASE METFORMIN T O A FULL TAB [...] situational exposure. No change in current medications. pt needs to take VIT OSPINA D [...] replacement Iron def anemia-check cbc-continue iron supplement HOLD METFORMIN X 1 W UTE RESTART PANTOPRAZOLE DAILY CONTINUE CARAFATE BEFORE MEALS [...] is to call for acute concerns. . Hypertension - wel l controlled - [...] or prn. Joint pain-pleuritic chest pain-swelling of ufvq-yhltibo-adaewch for autoimmune disease such as lupus-plan to check labs and proceed as indicated. Instructed patient we will call her with results of labs. [phone] Samuels and call Sandee to pick up worker a copy . Elevated glucose-check Hgb A1C Low back pain-will write letter on patient's behalf for insurance precertification Ildmapk-anhadbvngk-wcje controlled-no changes . Hypertension - wel l controlled - continue with current medications, continue with no added salt diet. Pt has been encouraged to exercise daily. The pt has been advised to call the office if there are any acute concerns about change in blood pressure readings at home. Neck krfu-cmsivjopevjpq-bnfkf to Dr Mckee for evaluation-patient has been [...] see Dr Mckee for her neck first. DECREASE LEXAPRO TO EVERY OTHER DAY X [...] hands-intermittent fevers-check inflammatory labs including tick panel bystolic 5mg daily - monitor blood [...]
--- OUTSIDE RECORDS SUMMARY | 2019-03-04 02:54 | XMS REPORT | CCD ---
Author Author Sandee Manzanares Organization Ally Manzanares MD, 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 09/15/2013 Marital status Unknown M arried 04/14/[address]: [id number] Never smoker 04/14/2013 Alcohol history Unknown occasionally [...] Date Stop Date Sta tus Fill Instructions Bactrim DS 800 mg-16 0 mg tablet RxNorm: 969692 1 Tablet(s) PO BID 04/20/2018 04/26/2018 Active mupirocin 2 % topica l ointment RxNorm: 573336 1 Application TOP BID 04/20/2018 04/29/2018 Active Diflucan 150 mg tablet RxNorm: 431778 1 Tablet(s) PO daily 11/02/2017 11/08/2017 Inactive Wellbutrin XL 300 mg 24 hr tablet, extended release RxNorm: 467186 TAKE 1 TABLET BY MOUTH ONCE DAILY 09/07/2017 No Stop Date Active metoprolol succinate ER 50 mg tablet,extended release 24 hr RxNorm: 409955 1 Tablet(s) PO daily 07/20/2017 01/15/2018 Inactive amitriptyline 25 mg tablet RxNorm: 745815 Tablet(s) 2 TAB(S) PO HS 07/09/2017 10/06/2017 Inactive Bystolic 5 mg tablet RxNorm: 306073 1 Tablet(s) PO daily 06/09/2017 07/08/2017 Inactive Vitamin D2 50,000 un it capsule RxNorm: 042033 1 Capsule(s) PO QW 05/12/2017 08/09/2017 Inactive metformin 500 mg tablet RxNorm: 745117 1/2 Tablet(s) PO QPM 05/12/2017 11/07/2017 Inactive metformin 500 mg tablet RxNorm: 005945 1/2 Tablet(s) PO QPM 05/12/2017 05/11/2017 Inactive lisinopril 20 mg-hyd rochlorothiazide 12.5 mg tablet RxNorm: 650744 1 TABLET(S) PO DAILY 04/23/2017 10/19/2017 Inactive Wellbutrin XL 300 mg 24 hr tablet, extended release RxNorm: 717716 1 Tablet(s) PO daily 1 TABLET(S) PO DAILY 12/01/2016 05/29/2017 Inactive Wellbutrin XL 150 mg 24 hr tablet, extended release RxNorm: 354268 1 TABLET(S) PO DAILY 10/07/2016 11/30/2016 Inactive amitriptyline 25 mg tablet RxNorm: 447162 2 TAB(S) PO HS,INSTR: FOR PAIN AND SLEEP 09/24/2016 07/08/2017 In active amitriptyline 25 mg tablet RxNorm: 120434 2 Tablet(s) PO QHS 09/23/2016 09/23/2016 Inactive meloxicam 15 mg tablet RxNorm: 655448 1 TABLET(S) PO DAILY 09/08/2016 12/06/[address] on hold until pt needs it: she is going to take (2) 7.5mg until gone cetirizine 10 mg tablet RxNorm: 3349313 1 Tablet(s) PO daily 07/22/2016 No Stop Date Active lisinopril 20 mg-hyd rochlorothiazide 12.5 mg tablet RxNorm: 685730 1 TABLET(S) PO DAILY 06/20/2016 12/16/2016 Inactive Wellbutrin XL 150 mg 24 hr tablet, extended release RxNorm: 349887 1 TABLET(S) PO DAILY 05/12/2016 08/09/2016 Inactive Victoza 3-Jean 0.6 mg /0.1 mL (18 mg/3 mL) subcutaneous pen injector RxNorm: 303342 0.6 Milligram(s) SQ daily 03/21/2016 07/21/2016 Inactive NovoFine Plus 32 gau ge x 1/6" needle RxNorm: 1 Miscellaneous daily 03/21/2016 07/21/2016 Inactive NovoFine Plus 32 gau ge x 1/6" needle RxNorm: 1 Miscellaneous daily 03/21/2016 03/20/2016 Inactive Victoza 3-Jean 0.6 mg /0.1 mL (18 mg/3 mL) subcutaneous pen injector RxNorm: 298912 0.6 Milligram(s) SQ daily 03/21/2016 03/20/2016 Inactive Vitamin D2 50,000 un it capsule RxNorm: 678020 1 Capsule(s) PO QW 03/20/2016 06/17/2016 Inactive meloxicam 15 mg tablet RxNorm: 823189 1 Tablet(s) PO daily 03/20/2016 07/17/[address] on hold until pt needs it: she is going to take (2) 7.5mg until gone lisinopril 20 mg-hyd rochlorothiazide 12.5 mg tablet RxNorm: 753127 1 TABLET(S) PO DAILY 02/19/2016 05/18/2016 Inactive Wellbutrin XL 150 mg 24 hr tablet, extended release RxNorm: 114616 1 Tablet(s) PO daily 11/09/2015 03/07/2016 Inactive gabapentin 800 mg ta blet RxNorm: 785298 1 Tablet(s) PO TID 11/09/2015 06/08/2017 Inactive Lexapro 10 mg tablet RxNorm: 772798 1 TABLET(S) PO QPM 11/05/2015 11/08/2015 Inactive lisinopril 20 mg-hyd rochlorothiazide 12.5 mg tablet RxNorm: 979783 1 TABLET(S) PO DAILY 10/18/2015 01/15/2016 Inactive Cipro 500 mg tablet RxNorm: 970955 1 Tablet(s) PO BID 08/17/2015 08/23/2015 Inactive Lexapro 10 mg tablet RxNorm: 554304 1 Tablet(s) PO QPM 07/24/2015 10/21/2015 Inactive Vitamin D2 50,000 un it capsule RxNorm: 519818 1 Capsule(s) PO QW 07/24/2015 10/21/2015 Inactive gabapentin 300 mg ca psule RxNorm: 126489 2 Capsule(s) PO TID 07/16/2015 11/08/2015 Inactive lisinopril 20 mg-hyd rochlorothiazide 12.5 mg tablet RxNorm: 418634 1 TABLET(S) PO DAILY 04/09/2015 07/07/2015 Inactive naproxen 250 mg tablet RxNorm: 518011 1-2 Tablet(s) PO BID as needed for pain 03/08/2015 No Stop Date Active Fetzima 40 mg capsul e,extended release RxNorm: 7844371 1 Capsule(s) PO adri y 12/22/2014 12/21/2014 In active Fetzima 40 mg capsul e,extended release RxNorm: 8240813 1 Capsule(s) PO adri y 12/22/2014 06/11/2015 In active Xanax 0.5 mg tablet RxNorm: 598426 1 Tablet(s) TAKE 1 TABLET BY MOUTH TWICE DAILY NEEDED FOR ANXIETY 11/17/2014 01/15/2015 Inactive lisinopril 20 mg-hyd rochlorothiazide 12.5 mg tablet RxNorm: 255624 1 Tablet(s) PO daily 11/17/2014 03/16/2015 Inactive Fetzima 20 mg capsul e,extended release RxNorm: 8147663 1 Capsule(s) PO adri y 11/17/2014 12/22/2014 In active Xanax 0.5 mg tablet RxNorm: 072144 1 Tablet(s) TAKE 1 TABLET BY MOUTH TWICE DAILY NEEDED FOR ANXIETY 10/27/2014 11/16/2014 Inactive Xanax 0.5 mg tablet RxNorm: 305961 TAKE 1 TABLET BY MOUTH TWICE DAILY NE EDED FOR ANXIETY 08/25/2014 10/23/2014 Inactive Brintellix 10 mg tablet RxNorm: 8312567 1 Tablet(s) PO daily 07/04/2014 07/03/2014 Inactive Brintellix 10 mg tablet RxNorm: 0246677 1 Tablet(s) PO daily 07/04/2014 11/16/2014 Inactive Brintellix 10 mg tablet RxNorm: 4487797 1 Tablet(s) PO daily 06/09/2014 07/03/2014 Inactive Contrave 8 mg-90 mg tablet,extended release RxNorm: 5326480 2 Tablet(s) PO BID 06/09/2014 09/06/2014 In active 1 tab q am x 1 week, then 1 tab BID x 1 week, then 2 q am and 1 q pm x 1 week then 2 tabs BID thereafter Contrave 8 mg-90 mg tablet,extended release RxNorm: 1522149 2 Tablet(s) PO BID 06/09/2014 06/08/2014 In active 1 tab q am x 1 week, then 1 tab BID x 1 week, then 2 q am and 1 q pm x 1 week then 2 tabs BID thereafter metformin 500 mg tablet RxNorm: 608254 1/2 Tablet(s) PO BID 05/18/2014 09/14/2014 Inactive Brintellix 10 mg tablet RxNorm: 4113851 2 Tablet(s) PO daily 05/16/2014 06/08/2014 Inactive Xanax 0.5 mg tablet RxNorm: 726253 1 Tablet(s) PO BID PRN 04/06/2014 08/25/2014 Inactive Wellbutrin XL 150 mg 24 hr tablet, extended release RxNorm: 823813 1 Tablet(s) PO daily 04/04/2014 05/15/2014 Inactive [SAVINGS FOR UNINSURED PATIENTS -- BIN:0 31997, PCN: [id number], Group: [id number], ID# [id number], Process claim through [employer]eni, for questions: . THIS IS NOT INSURANCE.] pantoprazole 40 mg t ablet,delayed release RxNorm: 818014 1 Tablet(s) PO daily 12/01/2013 03/30/2014 In active Vitamin D3 2,000 uni t tablet RxNorm: 506212 1 Tablet(s) PO daily 10/10/2013 No Stop Date Active Vitamin D2 50,000 un it capsule RxNorm: 140210 1 Capsule(s) PO QW 10/10/2013 11/16/2014 Inactive vitamin d 50,000 units weekly x 12 weeks then 5000 units daily thereafter escitalopram 20 mg t ablet RxNorm: 614880 1 Tablet(s) PO daily 10/10/2013 04/04/2014 Inactive trazodone 100 mg tablet RxNorm: 050620 1 TABLET(S) PO QHS 09/19/2013 01/16/2014 Inactive trazodone 100 mg tablet RxNorm: 851153 1 Tablet(s) PO QHS 08/16/2013 09/14/2013 Inactive metformin 500 mg tablet RxNorm: 758029 1 Tablet(s) PO BID 08/16/2013 04/03/2014 Inactive Diflucan 150 mg tablet RxNorm: 836303 1 Tablet(s) PO daily 08/16/2013 08/22/2013 Inactive metformin 500 mg tablet RxNorm: 128917 1/2 Tablet(s) PO BID 1/2 tab in the even ing x 1 week then 1/2 tab twice daily 04/26/2013 08/15/2013 Inactive Vitamin D2 50,000 un it capsule RxNorm: 644212 1 Capsule(s) PO QW 04/21/2013 10/09/2013 Inactive vitamin d 50,000 units weekly x 12 weeks then 5000 units daily thereafter Lexapro 10 mg tablet RxNorm: 181565 1 Tablet(s) PO daily 04/14/2013 10/09/2013 Inactive Slow Fe oral RxNorm: 29521 oral No Start Date Active tizanidine 2 mg tablet RxNorm: 458326 1 Tablet(s) PO TID No Start Date Active vitamin B complex ca psule RxNorm: 1 Capsule(s) PO daily No Start Date Active diclofenac 75 mg-mis oprostol 200 mcg tablet,immediate,delayed release RxNorm: 7543182 1 Tablet(s) PO BID No Start Date Active methocarbamol 500 mg tablet RxNorm: 449055 1 Tablet(s) PO TID No Start Date Active lisinopril 20 mg-hyd rochlorothiazide 12.5 mg tablet RxNorm: 091829 1 Tablet(s) PO daily No Start Date 11/16/2014 Inactive gabapentin 300 mg ca psule RxNorm: 586185 1 Capsule(s) PO TID No Start Date 07/15/2015 Inactive cetirizine 10 mg tablet RxNorm: 0558977 1 Tablet(s) PO daily No Start Date 03/05/2016 Inactive Vitamin D2 50,000 un it capsule RxNorm: 435692 1 Capsule(s) PO QW No Start Date 04/20/2013 Inactive pantoprazole 40 mg t ablet,delayed release RxNorm: 531620 1 Tablet(s) PO daily No Start Date 10/09/2013 Inactive amitriptyline 10 mg tablet RxNorm: 092548 1 Tablet(s) PO QHS No Start Date 09/22/2016 Inactive meloxicam 7.5 mg tablet RxNorm: 712910 1 Tablet(s) PO daily No Start Date 03/19/2016 Inactive ibuprofen 200 mg tablet RxNorm: 658219 3 Tablet(s) PO TID No Start Date 11/30/2013 Inactive Advair Diskus 250 mc g-50 mcg/dose powder for inhalation RxNorm: 7302568 2 INH daily No Start Date 07/23/2015 [...] Laboratory exam ordered as part of [facility]le [facility]ila general medical examination ICD-9: V72.62 10/06/2013 Swelling of extremity ICD-9: 729.81 09/15/2013 JOINT PAIN-UNSPEC ICD-9: 719.40 09/15/2013 Pleuritic chest pain ICD-9: 786.52 09/15/2013 Well woman exam with routine gynecological exam ICD-9: V72.31 09/15/2013 Nasal septal ulcer ICD-9: 478.19 09/15/2013 ANEMIA ICD-9: 285.9 08/07 DM W/O COMPLICATION TYPE II, UNCONTROLLED SNOMED: 84886231 ICD-9: 250.02 08/16/2013 Urinary tract infection ICD-9: [...] 24.3 pg 10/13/2017 Cbc With Differential Ord2 Henderson% 10.1 % 10/13/2017 Cbc With Differential Ord2 [...] 1.71 K/ul 10/13/2017 Cbc With Differential Ord2 Henderson ABS# 0.7 K/ul 10/13/2017 Cbc With Differential Ord2 Eos ABS# 0.1 K/ul 10/13/2017 Cbc With Differential Ord2 Baso ABS# 0.0 K/ul 10/13/2017 %Hba1C Tks608 % HbA1c 26122-7 6.3 % 10/13/2017 %Hba1C Dja769 Gluc Ave 134 mg/dL 10/13/2017 Comp Metabolic Jpm655 NA 144 mEq/L 10/13/2017 Comp Metabolic Bpu469 K 4.2 mEq/L 10/13/2017 Comp Metabolic Nva375 CL 110 mEq/L 10/13/2017 Comp Metabolic Jqu311 CO2 25.0 mEq/L 10/13/2017 Comp Metabolic Spg564 AN ION GAP 13 10/13/2017 Comp Metabolic Fiq080 GL UCOSE 99 mg/dL 10/13/2017 Comp Metabolic Znu932 Cr eat 0.6 mg/dL 10/13/2017 Comp Metabolic Vux906 eG FR 116 ml/min/1.73m2 09/2017 Comp Metabolic Ivy907 BUN 11 mg/dL 10/13/2017 Comp Metabolic Lvg058 B/ C Ratio 19.0 Ratio 10/13/2017 Comp Metabolic Qor722 CA LCIUM 9.1 mg/dL 10/13/2017 Comp Metabolic Pdk335 AL K PHOS 134 U/L 10/13/2017 Comp Metabolic Bcp429 T(SGOT) 18 U/L 10/13/2017 Comp Metabolic Sla947 AL T(SGPT) 17 U/L 10/13/2017 Comp Metabolic Gzt353 BI LI T 0.4 mg/dL 10/13/2017 Comp Metabolic Zri035 AL BUMIN 4.0 g/dL 10/13/2017 Comp Metabolic Mmu839 TP RO 6.6 g/dL 10/13/2017 Comp Metabolic Qhj457 GL OB 2.6 g/dL 10/13/2017 Comp Metabolic Axy035 A/ G Ratio 1.5 Ratio 10/13/2017 Comp Metabolic Uct342 Os mo 286 mOsmo 10/13/2017 Vitamin D 25 Oh Xvy0701 VITAMIN D, 25 HYDROXY 55.13 ng/mL 10/13/2017 I Fecal Occult Blood Xzv7317 IFOB Negative 05/13/2017 B12 Ckt443 B12 427.00 pg/ml 05/12/2017 Tibc Ord40 Iron 35 ug/dl 05/12/2017 Tibc Ord40 UIBC 412 ug/dL 05/12/2017 Tibc Ord40 TIBC 447 ug/dL 05/12/2017 Tibc Ord40 Fe-%Sat 7.8 % 05/12/2017 Ferritin Ord22 FERRITIN 7.2 ng/mL 05/12/2017 Comp Metabolic Fis677 NA 142 mEq/L 05/12/2017 Comp Metabolic Qzh300 K 4.0 mEq/L 05/12/2017 Comp Metabolic Zje504 CL 106 mEq/L 05/12/2017 Comp Metabolic Ejj972 CO2 26.0 mEq/L 05/12/2017 Comp Metabolic Lnw671 AN ION GAP 14 05/12/2017 Comp Metabolic Zbk034 GL UCOSE 137 mg/dL 05/12/2017 Comp Metabolic Loh185 Cr eat 0.6 mg/dL 05/12/2017 Comp Metabolic Bii169 eG FR 116 ml/min/1.73m2 08/2017 Comp Metabolic Bbt115 BUN 9 mg/dL 05/12/2017 Comp Metabolic Ebm160 B/ C Ratio 15.5 Ratio 05/12/2017 Comp Metabolic Pip341 CA LCIUM 8.8 mg/dL 05/12/2017 Comp Metabolic Xhg057 AL K PHOS 171 U/L 05/12/2017 Comp Metabolic Kyx942 T(SGOT) 18 U/L 05/12/2017 Comp Metabolic Dsr175 AL T(SGPT) 17 U/L 05/12/2017 Comp Metabolic Zpe688 BI LI T 0.2 mg/dL 05/12/2017 Comp Metabolic Wlh326 AL BUMIN 3.9 g/dL 05/12/2017 Comp Metabolic Vil463 TP RO 6.5 g/dL 05/12/2017 Comp Metabolic Tnu167 GL OB 2.6 g/dL 05/12/2017 Comp Metabolic Anx110 A/ G Ratio 1.5 Ratio 05/12/2017 Comp Metabolic Svk832 Os mo 284 mOsmo 05/12/2017 Iron Ord72 Iron 33 ug/dl 05/12/2017 Vitamin D 25 Oh Bmg3913 VITAMIN D, 25 HYDROXY 31.02 ng/mL 05/12/2017 [...] 22.0 pg 05/12/2017 Cbc With Differential Ord2 Henderson% 8.1 % 05/12/2017 Cbc With Differential Ord2 [...] 1.54 K/ul 05/12/2017 Cbc With Differential Ord2 Henderson ABS# 0.6 K/ul 05/12/2017 Cbc With Differential Ord2 Eos ABS# 0.2 K/ul 05/12/2017 Cbc With Differential Ord2 Baso ABS# 0.0 K/ul 05/12/2017 %Hba1C Lvo331 % HbA1c 65646-6 6.6 % 05/12/2017 %Hba1C Upt799 Gluc Ave 143 mg/dL 05/12/2017 Tsh Ord6 TSH (3rd IS) 3.18 uIU/mL 05/12/2017 Lymes Disease Total Antibodies With Western Blot Refle x [id number] B. BURGDORFERI, IGG/IGM 0.048 12/08/2016 Lymes Disease Total Antibodies With Western Blot Refle x [id number] 12/08/2016 Alena Reflex Profile [id number] ALENA (VENTURA) SCREEN NONE DETECTED 017 Ehrlichia Chaffeensis Antibody Igm 513386 EHRLICHIA CHAFFEENSIS IGM < 1:16 12/05/2016 Fancy Gap Spotted Fever Igg/Igm 70414 3 GUME MT SPOTTED FEVER IGM EIA . 12/05/2016 Fancy Gap Spotted Fever Igg/Igm 22714 3 RMSF, IGM 0.43 index 12/05/2016 Fancy Gap Spotted Fever Igg/Igm 51054 3 GUME MT SPOTTED FEVER IGG EIA FLEX . 12/05/2016 Fancy Gap Spotted Fever Igg/Igm 16130 3 RMSF, IGG SCREEN-FLEX Negative 12/05/2016 Ehrlichia Chaffeensis Antibody Igg 287424 EHRLICHIA CHAFFEENSIS IGG <1:64 12/05/2016 Tibc Ord40 Iron 37 ug/dl 12/02/2016 Tibc Ord40 UIBC 372 ug/dL 12/02/2016 Tibc Ord40 TIBC 409 ug/dL 12/02/2016 Tibc Ord40 Fe-%Sat 9.0 % 12/02/2016 Ferritin Ord22 FERRITIN 13.9 ng/mL 12/02/2016 B12 Tqn014 B12 344.00 pg/ml 12/02/2016 %Hba1C Why753 % HbA1c 87591-0 6.1 % 12/01/2016 %Hba1C Ljb818 Gluc Ave 128 mg/dL 12/01/2016 Cbc With [...] 26.2 pg 12/01/2016 Cbc With Differential Ord2 Henderson% 8.8 % 12/01/2016 Cbc With Differential Ord2 [...] 1.75 K/ul 12/01/2016 Cbc With Differential Ord2 Henderson ABS# 0.6 K/ul 12/01/2016 Cbc With Differential Ord2 Eos ABS# 0.4 K/ul 12/01/2016 Cbc With Differential Ord2 Baso ABS# 0.1 K/ul 12/01/2016 Tsh Ord6 hTSH II 1.80 uIU/mL 12/01/2016 C-Reactive Protein Qnt Crqnt CRP 1.5 mg/dl 12/01/2016 Sed Rate Ord21 ESR 14 mm/hr 12/01/2016 Ra Factor Stk405 RA FACT OR <10 IU/ml 12/01/2016 Vitamin D 25 Oh Cas4952 VITAMIN D, 25 HYDROXY 30.98 ng/mL 12/01/2016 Comp Metabolic Acj037 NA 140 mEq/L 12/01/2016 Comp Metabolic Bsw013 K 3.9 mEq/L 12/01/2016 Comp Metabolic Xol980 CL 106 mEq/L 12/01/2016 Comp Metabolic Huh722 CO2 26.0 mEq/L 12/01/2016 Comp Metabolic Cyy756 AN ION GAP 12 12/01/2016 Comp Metabolic Vhu428 GL UCOSE 147 mg/dL 12/01/2016 Comp Metabolic Xma634 Cr eat 0.6 mg/dL 12/01/2016 Comp Metabolic Xpp372 eG FR 114 ml/min/1.73m2 11/08 Comp Metabolic Poy300 BUN 11 mg/dL 12/01/2016 Comp Metabolic Lpm913 B/ C Ratio 18.6 Ratio 12/01/2016 Comp Metabolic Ech958 CA LCIUM 8.8 mg/dL 12/01/2016 Comp Metabolic Qvg664 AL K PHOS 138 U/L 12/01/2016 Comp Metabolic Vlj118 T(SGOT) 34 U/L 12/01/2016 Comp Metabolic Pri703 AL T(SGPT) 26 U/L 12/01/2016 Comp Metabolic Eas497 BI LI T 0.3 mg/dL 12/01/2016 Comp Metabolic Pee176 AL BUMIN 3.8 g/dL 12/01/2016 Comp Metabolic Ojf050 TP RO 6.2 g/dL 12/01/2016 Comp Metabolic Ikq371 GL OB 2.4 g/dL 12/01/2016 Comp Metabolic Oba239 A/ G Ratio 1.6 Ratio 12/01/2016 Comp Metabolic Sij818 Os mo 281 mOsmo 12/01/2016 %Hba1C Vav980 % HbA1c 17035-6 6.3 % 08/05/2016 %Hba1C Rby214 Gluc Ave 134 mg/dL 08/05/2016 Alena [id number] ALENA (VENTURA) S CREEN NONE DETECTED 017 Vitamin D 25 Oh Vtk6255 VITAMIN D, 25 HYDROXY 32.26 ng/mL 03/07/2016 Ra Factor Jdq088 RA FACT OR <10 IU/ml 03/07/2016 C-Reactive Protein Qnt Crqnt CRP 2.0 mg/dl 03/06/2016 Sed Rate Ord21 ESR 32 mm/hr 03/06/2016 %Hba1C Jum990 % HbA1c 87055-5 6.3 % 03/06/2016 %Hba1C Xsx037 Gluc Ave 134 mg/dL 03/06/2016 Comp Metabolic Dfu071 NA 138 mEq/L 03/06/2016 Comp Metabolic Kzk470 K 4.3 mEq/L 03/06/2016 Comp Metabolic Vni195 CL 103 mEq/L 03/06/2016 Comp Metabolic Tnf051 CO2 23.0 mEq/L 03/06/2016 Comp Metabolic Zsp619 AN ION GAP 16 03/06/2016 Comp Metabolic Icf178 GL UCOSE 148 mg/dL 03/06/2016 Comp Metabolic Dyj212 Cr eat 0.6 mg/dL 03/06/2016 Comp Metabolic Gae772 eG FR 104 ml/min/1.73m2 02/07 Comp Metabolic Izz467 BUN 13 mg/dL 03/06/2016 Comp Metabolic Vhf406 B/ C Ratio 20.3 Ratio 03/06/2016 Comp Metabolic Nzg573 CA LCIUM 9.7 mg/dL 03/06/2016 Comp Metabolic Wiv486 AL K PHOS 146 U/L 03/06/2016 Comp Metabolic Klb399 T(SGOT) 25 U/L 03/06/2016 Comp Metabolic Pvi646 AL T(SGPT) 25 U/L 03/06/2016 Comp Metabolic Ziw565 BI LI T 0.3 mg/dL 03/06/2016 Comp Metabolic Sqx331 AL BUMIN 4.1 g/dL 03/06/2016 Comp Metabolic Mze001 TP RO 6.9 g/dL 03/06/2016 Comp Metabolic Gle292 GL OB 2.8 g/dL 03/06/2016 Comp Metabolic Vql417 A/ G Ratio 1.5 Ratio 03/06/2016 Comp Metabolic Hnb443 Os mo 279 mOsmo 03/06/2016 Cbc With [...] 27.1 pg 03/06/2016 Cbc With Differential Ord2 Henderson% 9.2 % 03/06/2016 Cbc With Differential Ord2 [...] 1.35 K/ul 03/06/2016 Cbc With Differential Ord2 Henderson ABS# 0.5 K/ul 03/06/2016 Cbc With Differential Ord2 Eos ABS# 0.2 K/ul 03/06/2016 Cbc With Differential Ord2 Baso ABS# 0.1 K/ul 03/06/2016 Tsh Ord6 hTSH II 3.61 uIU/mL 03/06/2016 Culture Urine [id number] URI NE CULTURE SEE NOTES 08/20/2015 Culture Urine [id number] Con tinued Results 08/20/2015 Urine Culture Ucult Comp lete Growth of aerobe sent to ref lab 08/18/2015 Vitamin D 25 Oh Ftj8369 VITAMIN D, 25 HYDROXY 24.39 ng/mL 07/18/2015 Comp Metabolic Njk390 NA 136 mEq/L 07/17/2015 Comp Metabolic Afb320 K 4.0 mEq/L 07/17/2015 Comp Metabolic Ogc073 CL 100 mEq/L 07/17/2015 Comp Metabolic Cnv864 CO2 27.0 mEq/L 07/17/2015 Comp Metabolic Ngl537 AN ION GAP 13 07/17/2015 Comp Metabolic Hft229 GL UCOSE 121 mg/dL 07/17/2015 Comp Metabolic Axc468 Cr eat 0.7 mg/dL 07/17/2015 Comp Metabolic Anv304 eG FR 96 ml/min/1.73m2 07/16 Comp Metabolic Sdv117 BUN 10 mg/dL 07/17/2015 Comp Metabolic Mdh653 B/ C Ratio 14.5 Ratio 07/17/2015 Comp Metabolic Vwv631 CA LCIUM 8.9 mg/dL 07/17/2015 Comp Metabolic Swq492 AL K PHOS 146 U/L 07/17/2015 Comp Metabolic Vxu533 T(SGOT) 20 U/L 07/17/2015 Comp Metabolic Nxj335 AL T(SGPT) 22 U/L 07/17/2015 Comp Metabolic Ttd544 BI LI T 0.4 mg/dL 07/17/2015 Comp Metabolic Wdb353 AL BUMIN 4.0 g/dL 07/17/2015 Comp Metabolic Ovy071 TP RO 6.6 g/dL 07/17/2015 Comp Metabolic Sdd025 GL OB 2.6 g/dL 07/17/2015 Comp Metabolic Kqm426 A/ G Ratio 1.6 Ratio 07/17/2015 Comp Metabolic Yns188 Os mo 272 mOsmo 07/17/2015 Sed Rate [...] 26.1 pg 07/17/2015 Cbc With Differential Ord2 Henderson% 12.6 % 07/17/2015 Cbc With Differential Ord2 [...] 1.25 K/ul 07/17/2015 Cbc With Differential Ord2 Henderson ABS# 0.9 K/ul 07/17/2015 Cbc With Differential [...] Crqnt CRP 2.9 mg/dl 07/17/2015 GFR CALC 7801650 GFR AA >60 ML/MIN 10/06/2013 GFR CALC 4010860 GFR NON -AA >60 ML/MIN 10/06/2013 CHEM 14 9436967 AST 34 U/L 10/06/2013 CHEM 14 4491589 ALT 30 IU/L 10/06/2013 CHEM 14 8671277 BUN 11 MG/DL 10/06/2013 CHEM 14 1731586 ALBUMIN 4.4 GM/DL 10/06/2013 CHEM 14 2008620 CHLORIDE 107 MMOL/L 10/06/2013 CHEM 14 6580835 BILI TOT 0.4 MG/DL 10/06/2013 CHEM 14 9796498 ALK PHOS 133 U/L 10/06/2013 CHEM 14 2306136 SODIUM 140 MMOL/L 10/06/2013 CHEM 14 1537269 CREATINI NE 0.67 MG/DL 10/06/2013 CHEM 14 5633703 CALCIUM 9.3 MG/DL 10/06/2013 CHEM 14 9466721 POTASSIUM 4.0 MMOL/L 10/06/2013 CHEM 14 9869758 PROT TOT 7.1 GM/DL 10/06/2013 CHEM 14 6260651 GLUCOSE 108 MG/DL 10/06/2013 CHEM 14 2989213 BICARB 25 MMOL/L 10/06/2013 CHEM 14 2969543 ANION GAP 8 MEQ/L 10/06/2013 VIT D TOTL 1597297 VIT D TOTL 37 NG/ML 10/06/2013 GC/CHL PRB 7854883 CHLM PROBE NEG 09/21/2013 GC/CHL PRB 5234848 GC DC OBE NEG 09/21/2013 DNA AB 9189768 DNA AB 36 IU/ML 09/17/2013 RA FACTOR 6396329 RA FAC TOR <20.0 IU/ML 09/16/2013 SM MUSC AB 9751210 SM MU SC AB <1:20 09/16/2013 CARDIO G/M 0396884 CARDI O IGG 1.7 GPLU 09/16/2013 CARDIO G/M 6626235 CARDI O IGM 4.8 MPLU 09/16/2013 ALENA SCR [id number] ALENA SCR <1:80 09/16/2013 CRP [id number] CRP 1.1 MG/DL 09/15/2013 ESR 4180466 ESR 22 MM/HR 09/15/2013 CBC 2334271 WBC 5.5 10e9/L 04/26/2013 CBC 2182153 RBC 4.89 10e12/L 04/26/2013 CBC 4842189 HGB 12.8 g/dL 04/26/2013 CBC 1079628 HCT DET 39.5 % 04/26/2013 CBC 8917122 MCV 80.8 fL 04/26/2013 CBC 1694930 MCH 26.2 pg 04/26/2013 CBC 3230964 MCHC 32.4 g/dL 04/26/2013 CBC 2295821 PLT 299 10e9/L 04/26/2013 CBC 5928505 MPV 10.9 fL 04/26/2013 CBC 1610530 WAN % 59.0 % 04/26/2013 CBC 9375609 LY % 29.6 % 04/26/2013 CBC 3366717 MON % 9.1 % 04/26/2013 CBC 9074038 EOS % 1.8 % 04/26/2013 CBC 5196256 BASO % 0.5 % 04/26/2013 CBC 6218698 RDW 13.9 % 04/26/2013 CBC 5102397 ABS WAN 3.25 10e9/L 04/26/2013 CBC 2011299 ABS LYMPH 1.63 10e9/L 04/26/2013 CBC 2518342 ABS MONO 0.50 10e9/L 04/26/2013 CBC 3666653 ABS EOS 0.10 10e9/L 04/26/2013 CBC 3516079 ABS BASO 0.03 10e9/L 04/26/2013 CBC 7723671 RDW-SD 39.9 fL 04/26/2013 URINALYSIS NONAUTO W/O SCOPE 21378 Specific [place] 1.020 DateTime(Free Text in Aprima) URINALYSIS NONAUTO W/O SCOPE 29585 PH 6.0 DateTime(Free Rik t in Apr) URINALYSIS NONAUTO W/O SCOPE 55748 GLUCOSE neg DateTime(Free Rik t in Aprima) URINALYSIS NONAUTO W/O SCOPE 35442 Protein neg DateTime(Free Rik t in Apr) URINALYSIS NONAUTO W/O SCOPE 07184 Blood neg DateTime(Free Rik t in Aprima) URINALYSIS NONAUTO W/O SCOPE 72824 Bilirubin neg DateTime(Free Rik t in Apr) URINALYSIS NONAUTO W/O SCOPE 19362 Ketones neg DateTime(Free Rik t in Aprima) URINALYSIS NONAUTO W/O SCOPE 75832 Urobilinogen neg DateTime(Free Text in Aprima) URINALYSIS NONAUTO W/O SCOPE 32082 Nitrite neg DateTime(Free Rik t in ) URINALYSIS NONAUTO W/O SCOPE 57922 Leukocytes 1+ DateTime(Free Text in ) Review [...] Date URINALYSIS NONAUTO W /O SCOPE CPT-4: 97186 11/02/2017 OCCULT BLOOD FECES CPT- 4: 59570 12/08/2016 IMMUNIZATION ADMIN CPT- 4: 26923 12/07/2015 FLU VACC 4 AMBER 3 YRS PLUS IM SNOMED CT: 86010085 CPT-4: 42373 12/07/2015 URINALYSIS NONAUTO W /O SCOPE CPT-4: 78176 08/17/2015 CHEM 14 (COMPREHEN M ETABOLIC PANEL) CPT-4: 78611 10/06/2013 VIT D TOTL (VITAMIN D 25 HYDROXY) CPT-4: 15180 10/06/2013 CRP (C-REACTIVE PROT EIN) CPT-4: 39992 09/15/2013 ESR (RBC SED RATE AU TOMATED) CPT-4: 06363 09/15/2013 ROUTINE VENIPUNCTURE CPT-4: 18974 09/15/2013 URINALYSIS NONAUTO W /O SCOPE CPT-4: 05258 08/16/2013 C URINE RT CPT-4: 5231989 08/16/2013 C URINE RT (URINE CU LTURE/COLONY COUNT) CPT-4: 61491 08/16/2013 ROUTINE VENIPUNCTURE CPT-4: 33925 04/26/2013 Vital Signs Date Vital 04/22/2018 Heigh t: Weight: 04/20/2018 Blood Pressure 1: 150/90 Code: 8480-6 Heart Rate 1: 104 bpm Height: SpO2: 95% Weight: 11/02/2017 Blood Pressure 1: 130/76 Code: 8480-6 BMI: 37.6 Code: 72156-3 Heart Rate 1: 68 bpm Height: 5'5" SpO2: 98% Weight: 226 lbs 10/13/2017 Blood Pressure 1: 140/86 Code: 8480-6 BMI: 37.4 Code: 34054-8 Heart Rate 1: 78 bpm Height: 5'5" SpO2: 98% Weight: 225 lbs 07/20/2017 Blood Pressure 1: 128/80 Code: 8480-6 BMI: 39.1 Code: 85569-8 Heart Rate 1: 75 bpm Height: 5'5" SpO2: 98% Weight: 235 lbs 06/09/2017 Blood Pressure 1: 150/92 Code: 8480-6 BMI: 39.1 Code: 95496-7 Heart Rate 1: 106 bpm Height: 5'5" SpO2: 98% Weight: 235 lbs 05/12/2017 Blood Pressure 1: 144/68 Code: 8480-6 BMI: 38.9 Code: 69614-9 Heart Rate 1: 89 bpm Height: 5'5" SpO2: 98% Weight: 234 lbs 12/01/2016 Blood Pressure 1: 140/88 Code: 8480-6 BMI: 39.6 Code: 94388-6 Heart Rate 1: 101 bpm Height: 5'5" SpO2: 97% Weight: 238 lbs 08/05/2016 Blood Pressure 1: 134/82 Code: 8480-6 Heart Rate 1: 113 bpm Height: 5'5" SpO2: 98% 07/22/2016 Blood Pressure 1: 142/84 Code: 8480-6 BMI: 39.6 Code: 20046-5 Heart Rate 1: 103 bpm Height: 5'5" SpO2: 97% Weight: 238 lbs 03/06/2016 Blood Pressure 1: 138/86 Code: 8480-6 Heart Rate 1: 100 bpm SpO2: 96% Weight: 246 lbs 12/07/2015 Blood Pressure 1: 140/78 Code: 8480-6 BMI: 40.8 Code: 64014-9 Heart Rate 1: 97 bpm Height: 5'6" SpO2: 98% Weight: 250 lbs 11/09/2015 Blood Pressure 1: 118/84 Code: 8480-6 BMI: 40.7 Code: 64553-8 Heart Rate 1: 85 bpm Height: 5'6" SpO2: 98% Weight: 249 lbs 08/17/2015 Blood Pressure 1: 122/82 Code: 8480-6 BMI: 39.4 Code: 99330-4 Heart Rate 1: 86 bpm Height: 5'6" SpO2: 95% Weight: 241 lbs 07/24/2015 Blood Pressure 1: 118/76 Code: 8480-6 BMI: 39.9 Code: 11770-3 Heart Rate 1: 97 bpm Height: 5'6" SpO2: 96% Weight: 244 lbs 07/16/2015 Blood Pressure 1: 158/80 Code: 8480-6 Blood Pressure 1: 120/86 Code: 8480-6 Heart Rate 1: 105 bpm Height: 5'6" SpO2: 98% Weight: 06/12/2015 Blood Pressure 1: 128/82 Code: 8480-6 BMI: 39.9 Code: 66199-3 Heart Rate 1: 89 bpm Height: 5'6" SpO2: 98% Weight: 244 lbs 03/08/2015 Blood Pressure 1: 130/86 Code: 8480-6 Heart Rate 1: 98 bpm Height: 5'6" SpO2: 97% Weight: 12/29/2014 Blood Pressure 1: 138/88 Code: 8480-6 BMI: 39.2 Code: 46883-9 Heart Rate 1: 109 bpm Height: 5'6" SpO2: 97% Weight: 240 lbs 11/17/2014 Blood Pressure 1: 170/98 Code: 8480-6 BMI: 39.7 Code: 36729-4 Heart Rate 1: 92 bpm Height: 5'6" SpO2: 98% Weight: 243 lbs 05/16/2014 Blood Pressure 1: 130/82 Code: 8480-6 BMI: 39.2 Code: 47290-6 Heart Rate 1: 88 bpm Height: 5'6" Weight: 240 lbs 04/04/2014 Blood Pressure 1: 146/92 Code: 8480-6 Blood Pressure 2: 136/86 Code: 8480-6 BMI: 39.9 Code: 72985-3 Heart Rate 1: 68 bpm Height: 5'6" Weight: 244 lbs 12/01/2013 Blood Pressure 1: 142/80 Code: 8480-6 BMI: 38.4 Code: 52753-2 Heart Rate 1: 80 bpm Height: 5'6" Weight: 235 lbs 10/10/2013 Blood Pressure 1: 128/88 Code: 8480-6 BMI: 38.7 Code: 38562-3 Heart Rate 1: 88 bpm Height: 5'6" Weight: 237 lbs 09/15/2013 Blood Pressure 1: 112/74 Code: 8480-6 BMI: 39.0 Code: 90171-3 Heart Rate 1: 80 bpm Height: 5'6" Weight: 239 lbs 08/16/2013 Blood Pressure 1: 124/64 Code: 8480-6 BMI: 39.0 Code: 26349-4 Heart Rate 1: 88 bpm Height: 5'6" Weight: 239 lbs 06/06/2013 Blood Pressure 1: 120/72 Code: 8480-6 BMI: 37.9 Code: 52354-4 Heart Rate 1: 84 bpm Height: 5'6" Weight: 232 lbs 04/26/2013 Blood Pressure 1: 148/86 Code: 8480-6 BMI: 37.7 Code: 30000-1 Heart Rate 1: 84 bpm Height: 5'6" Weight: 231 lbs 04/14/2013 Blood Pressure 1: 148/92 Code: 8480-6 BMI: 38.2 Code: 78480-3 Heart Rate 1: 88 bpm Height: 5'6" [...] Encounters Encounter Performer Loca tion Codes Date ([id number]) Miscellaneou s no charge Diagnosis: Insect bite (nonvenomous), left lower leg, subsequent encounter[ICD10: S80.862D] Katy Manzanares MD, [facility] CPT-4: 30597 04/22/2018 ([id number]) 85549 EST. P ATIENT, LEVEL III Diagnosis: Insect bite (nonvenomous), left lower leg, initial encounter[ICD10: S80.862A] Katy Manzanares MD, [facility] CPT-4: 61878 04/20/2018 55212 EST. PATIENT, LEVEL II Diagnosis: Dysuria[ICD10: R30.0] Diagnosis: Other specified conditions associated with female genital organs and menstrual cycle[ICD10: N94.89] Katy Manzanares MD, [facility] CPT-4: 01151 11/02/2017 ([id number]) 16648 EST. 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 CPT-4: 76692 10/13/2017 ([id number]) 27695 EST. P ATIENT, LEVEL III Diagnosis: Essential (primary) hypertension[ICD10: I10] Katy Manzanares MD, [facility] CPT-4: 10200 07/20/2017 ([id number]) 13744 EST. P ATIENT, LEVEL III Diagnosis: Essential (primary) hypertension[ICD10: I10] Katy Manzanares MD, [facility] CPT-4: 15570 06/09/2017 ([id number]) 40499 EST. 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 CPT-4: 35497 05/12/2017 ([id number]) 80180 EST. P ATIENT, LEVEL IV Diagnosis: Essential [...] Diagnosis: Fever, unspecified[ICD10: R50.9] Katy Manzanares MD, [facility] CPT- 4: 67141 12/01/2016 ([id number]) 31176 EST. P ATIENT, LEVEL III Diagnosis: Impaired fasting glucose[ICD10: R73.01] Diagnosis: Low back pain[ICD10: M54.5] Diagnosis: Generalized anxiety disorder[ICD10: F41.1] [facility] CPT-4: 11307 08/05/2016 ([id number]) 12389 EST. P ATIENT, LEVEL III Diagnosis: Essential (primary) hypertension[ICD10: I10] Diagnosis: Radiculopathy, lumbar region[ICD10: M54.16] [facility] CPT-4: 59169 07/22/2016 ([id number]) Miscellaneou s no charge Diagnosis: Dysuria[ICD10: R30.0] [facility] CPT-4: 18720 06/12/2016 ([id number]) 84288 EST. P ATIENT, LEVEL IV Diagnosis: Type 2 diabetes mellitus without complications[ICD10: E11.9] Diagnosis: Vitamin D deficiency, unspecified[ICD10: E55.9] Diagnosis: Generalized anxiety disorder[ICD10: F41.1] Diagnosis: Essential (primary) hypertension[ICD10: I10] Diagnosis: Radiculopathy, cervical region[ICD10: M54.12] Diagnosis: Cardiac murmur, unspecified[ICD10: R01.1] Katy Manzanares MD, [facility] CPT-4: 68310 03/06/2016 ([id number]) 91041 EST. P ATIENT, LEVEL III Diagnosis: Generalized anxiety disorder[ICD10: F41.1] Diagnosis: Major depressive disorder, recurrent, in partial remission[ICD10: F33.41] Katy Manzanares MD, [facility] CPT-4: 10671 12/07/2015 ([id number]) 00458 EST. P ATIENT, LEVEL IV Diagnosis: Essential (primary) hypertension[ICD10: I10] Diagnosis: Generalized anxiety disorder[ICD10: F41.1] Diagnosis: Other obesity due to excess calories[ICD10: E66.09] Katy Manzanares MD, [facility] CPT-4: 46327 11/09/2015 ([id number]) 92175 EST. P ATIENT, LEVEL III Diagnosis: Urinary tract infection, site not specified[ICD10: N39.0] Katy Manzanares MD, [facility] CPT-4: 81463 08/17/2015 ([id number]) 33304 EST. P ATIENT, LEVEL III Diagnosis: Generalized anxiety disorder[ICD10: F41.1] Diagnosis: Major depressive disorder, recurrent, moderate[ICD10: F33.1] Katy Manzanares MD, [facility] CPT-4: 66503 07/24/2015 ([id number]) 49399 EST. P ATIENT, LEVEL IV Diagnosis: Myalgia[ICD10: M79.1] Diagnosis: Low back pain[ICD10: M54.5] Diagnosis: Cervicalgia[ICD10: M54.2] Diagnosis: Essential (primary) hypertension[ICD10: I10] Diagnosis: Vitamin D deficiency, unspecified[ICD10: E55.9] Diagnosis: Generalized anxiety disorder[ICD10: F41.1] [facility] CPT-4: 92174 07/16/2015 ([id number]) 30130 EST. P ATIENT, LEVEL IV Diagnosis: Cervicalgia[ICD10: M54.2] Diagnosis: Essential (primary) hypertension[ICD10: I10] Diagnosis: Low back pain[ICD10: M54.5] Diagnosis: Radiculopathy, cervical region[ICD10: M54.12] Katy Manzanares MD, [facility] CPT-4: 16608 06/12/2015 86615 EST. PATIENT, LEVEL III Diagnosis: Sacroiliitis, not elsewhere classified[ICD10: M46.1] Diagnosis: Low back pain[ICD10: M54.5] Diagnosis: Pain in left hip[ICD10: M25.552] Diagnosis: Pain in right hip[ICD10: M25.551] Samantha Manzanares MD, [facility] CPT-4: 86763 03/08/2015 79180 EST. PATIENT, LEVEL III Diagnosis: Anxiety disorder due to known physiological condition[ICD10: F06.4] Diagnosis: Mood disorder due to known physiological condition with depressive features[ICD10: F06.31] Diagnosis: Flushing[ICD10: R23.2] Samantha Manzanares MD, [facility] CPT-4: 22120 12/29/2014 ([id number]) 41075 EST. P ATIENT, LEVEL IV Diagnosis: ESSENTIAL HYPERTENSION[ICD9: 401.9] Diagnosis: Anxiety[ICD9: 300.00] Diagnosis: Depression[ICD9: 311] Katy Manzanares MD, [facility] CPT-4: 93181 11/17/2014 ([id number]) 73389 EST. P ATIENT, LEVEL IV Diagnosis: Anxiety[ICD9: 300.00] Diagnosis: Depression[ICD9: 311] Diagnosis: DIABETES TYPE II[ICD9: 250.00] Diagnosis: Vitamin D deficiency[ICD9: 268.9] Diagnosis: ESSENTIAL HYPERTENSION[ICD9: 401.9] Diagnosis: ABNORMAL WEIGHT GAIN[ICD9: 783.1] Katy Manzanares MD, [facility] CPT- 4: 49823 05/16/2014 ([id number]) 12142 EST. P ATIENT, LEVEL IV Diagnosis: ESSENTIAL HYPERTENSION[ICD9: 401.9] Diagnosis: Anxiety[ICD9: 300.00] Diagnosis: Depression[ICD9: 311] Katy Manzanares MD, [facility] CPT-4: 76495 04/04/2014 ([id number]) 05215 EST. P ATIENT, LEVEL IV Diagnosis: Diarrhea[ICD9: 787.91] Diagnosis: Epigastric pain[ICD9: 789.06] Diagnosis: ESOPHAGEAL REFLUX[ICD9: 530.81] Diagnosis: Blood in stool[ICD9: 578.1] Katy Manzanares MD, [facility] CPT- 4: 69766 12/01/2013 ([id number]) 64260 EST. P ATIENT, LEVEL IV Diagnosis: Vitamin D deficiency[ICD9: 268.9] Diagnosis: DIABETES TYPE II[ICD9: 250.00] Diagnosis: Depression[ICD9: 311] Diagnosis: Insomnia[ICD9: 780.52] Ally Manzanares MD, [facility] CPT-4: 22026 10/10/2013 ([id number]) PREV VISIT E ST AGE 40-64 Diagnosis: Well woman exam with routine gynecological exam[ICD9: V72.31] Diagnosis: JOINT PAIN-UNSPEC[ICD9: 719.40] Diagnosis: Nasal septal ulcer[ICD9: 478.19] Diagnosis: Swelling of extremity[ICD9: 729.81] Diagnosis: Pleuritic chest pain[ICD9: 786.52] Katy Manzanares MD, [facility] CPT-4: 62679 09/15/2013 ([id number]) 83433 EST. P ATIENT, LEVEL IV Diagnosis: DM W/O COMPLICATION TYPE II, UNCONTROLLED[SNOMED: 70649111] Diagnosis: Urinary tract infection[ICD9: 599.0] Diagnosis: DEPRESSIVE DISORDER NEC[ICD9: 311] Diagnosis: Anxiety[ICD9: 300.00] Diagnosis: Insomnia[ICD9: 780.52] Diagnosis: ANEMIA[ICD9: 285.9] Katy Manzanares MD, [facility] CPT-4: 31184 08/16/2013 ([id number]) 90414 EST. P ATIENT, LEVEL III Diagnosis: DM w/o complication type II, uncontrolled[SNOMED: 21590293] Ally Manzanares MD, [facility] CPT-4: 17481 06/06/2013 ([id number]) 73273 EST. P ATIENT, LEVEL III Diagnosis: DIABETES TYPE II[SNOMED: 582120259] [facility] CPT- 4: 11907 04/26/2013 ([id number]) OFFICE VISI T, NEW - LEVEL 4 Diagnosis: Elevated blood pressure[ICD9: 796.2] Diagnosis: Depression[ICD9: 311] Diagnosis: Elevated alkaline phosphatase level[ICD9: 790.5] Diagnosis: Elevated glucose[ICD9: 790.29] [facility] CPT-4: 69415 04/14/2013 Plan of Care Planned Activity Notes C odes Status Date Visit Plan: Spdier bite -much impro itzel-return next Thursday for follow up -continue wound care as directed 04/22/2018 Patient Education: Patient Medication Summary Completed 04/22/2018 Visit Plan: Cellulitis - start oral antibiotics as directed, return to clinic for wound check, call for acute change in symptoms, worsening redness, warmth, discharge. 04/20/2018 Appointment: Katy Do WPtel: [address] [place], [place] [phone] (10 min) Simple 04/20/2018 Patient Education: Patient Medication Summary Completed 04/20/2018 Visit Plan: Erythema of labia- dysu vonda -UA negative-yeast infection vs vulvar lichen sclerosis -rx sent to patient's pharmacy and instructed on use -call if symptoms do not resolve of if any worse. Patient verbalized understanding of plan. 11/02/2017 Appointment: Katy Do WPtel: [phone] (15 min) Moderate 11/02/2017 Patient Education: [...] current medications. 10/13/2017 Appointment: Katy Do WPtel: [address] [place] [address] (30 min) Complex 10/13/2017 Patient Education: Patient Medication Summary Completed 10/13/2017 Appointment: Katy Do WPtel: [address] [place] [address] (15 min) Moderate 08/20/2017 Visit Plan: Hypertension - well con trolled but bystolic is not covered-will switch to metoprolol- continue other medications, continue with no added salt diet. Pt has been encouraged to exercise daily. The pt has been advised to call the office if there are any acute concerns about change in blood pressure readings at home. 07/20/2017 Appointment: Katy Do WPtel: [address] [place] [address] (15 min) Moderate 07/20/2017 Patient Education: Patient Medication Summary Completed 07/20/2017 Appointment: Katy Do WPtel: [address] [place] [address] (15 min) Moderate 07/14/2017 Visit Plan: Hypertension [...] supplement 05/12/2017 Appointment: Katy Do WPtel: [address] (30 min) Complex 05/12/2017 Patient Education: Patient Medication Summary Completed 05/12/2017 Patient Education: Patient Medication Summary Completed 05/12/2017 Care Plan: SCREENINGMAMMOGRAPHYDIGITAL LOINC : 64464-2 Pending 05/12/2017 Appointment: Lab Draw 12/08/2016 Patient [...] panel 12/01/2016 Appointment: Katy Do WPtel: [address] (30 min) Complex 12/01/2016 Patient Education: Patient Medication Summary Completed 12/01/2016 Patient Education: Obesity Completed 12/01/2016 Care Plan: Lymes Disease Antibobies Igg/ Igm Pending 12/01/2016 Visit Plan: Elevated glucose-check Hgb A1C Low back pain-will write letter on patient's behalf for insurance precertification Pjukngz-syznyockiq-qkil controlled-no changes 08/05/2016 Appointment: Katy Do WPtel: [phone] (30 min) Complex 08/05/2016 Patient Education: [...] next month. 07/22/2016 Appointment: Katy Do WPtel: [phone] (15 min) Moderate 07/22/2016 Patient Education: [...] murmur-schedule Echo 03/06/2016 Appointment: Katy Do WPtel: [phone] (30 min) Complex 03/06/2016 Patient Education: [...] current medications. 12/07/2015 Appointment: Katy Do WPtel: [address] [place], [place] [phone] [place] [address] (30 min) Complex 12/07/2015 Patient Education: Patient [...] weight check. 11/09/2015 Appointment: Katy Do WPtel: [address] [place] [address] (30 min) Complex 11/09/2015 Patient Education: Patient Medication Summary Completed 11/09/2015 Patient Education: Obesity Completed 11/09/2015 Care Plan: BMI Above normal followup LOLI F-MGMT EDUC & TRAIN 1 PT Pending 11/09/2015 Appointment: Katy Do WPtel: [address] [place], [place] [phone] [place] [address] (30 min) Complex 11/08/2015 Appointment: Katy Do WPtel: [address] [place], [place] [phone] [place] [address] (15 min) Moderate 08/23/2015 Visit Plan: Urinary [...] D level 07/24/2015 Appointment: Katy Do WPtel: [phone] (30 min) Complex 07/24/2015 Patient Education: [...] in blood pressure readings at home. Neck nnrj-rabonckdwepbv-xmlkj to Dr Mckee for evaluation-patient has been [...] min) Moderate 09/04/2014 Appointment: Katy Do WPtel: [address] [place], [place] [phone] Follow up 07/07/2014 Visit Plan: Anxiety and [...] Hypertension Completed 05/16/2014 Appointment: [facility] Do [facility]Ptel[phone] Follow up 05/09/2014 Visit Plan: Hypertension [...] this patient. 04/04/2014 Appointment: Katy Do WPtel: [address] [place], [place] [phone] Follow up 04/04/2014 Patient Education: Patient Medication [...] 12/01/2013 Care Plan: Referral Order SNOMED-CT : [id number] Ordered 12/01/2013 Visit Plan: Diabetes Mellitus - con trolled - per recent FSBS reports. I have [...] for insomnia. 10/10/2013 Appointment: Ally Manzanares WPtel: [address] [place], [place] [phone] Follow up 10/10/2013 Patient Education: Patient Medication Summary Completed 10/10/2013 Appointment: Ally Manzanares WPtel: [address] [place], [place] [phone] [place] Lab Draw 10/06/2013 Patient Education: Patient Medication Summary Completed 10/06/2013 Appointment: Ally Manzanares WPtel: [address] [place], [place] [phone] [place] Follow up 10/04/2013 Visit Plan: Well [...] or prn. Joint pain-pleuritic chest pain-swelling of yxbg-dlqmpcc-qpyhjik for autoimmune disease such as lupus-plan to check labs and proceed as indicated. Instructed patient we will call her with results of labs. 09/15/2013 Appointment: Katy Do WPtel: [phone] [place] Pap Only 09/15/2013 Patient Education: [...] iron panel 08/16/2013 Appointment: Katy Do WPtel: [phone] Follow up 08/16/2013 Patient Education: Patient Medication Summary Completed 08/16/2013 Care Plan: C URINE RT Pending 08/16/2013 Appointment: Katy Do WPtel: [phone] Follow up 08/09/2013 Appointment: Ally Manzanares WPtel: [address] [place], [place] [phone] Follow up 08/08/2013 Visit Plan: Diabetes Mellitus [...] glucose control. 06/06/2013 Appointment: Ally Manzanares WPtel: [phone] [facility] [place] Follow up 06/06/2013 Patient Education: Patient Medication Summary Completed 06/06/2013 Appointment: Ally Manzanares WPtel: [facility] Follow up 05/12/2013 Visit Plan: Diabetes Mellitus [...] glucose control. 04/26/2013 Appointment: Katy Do WPtel: [phone] Diabetic education 04/26/2013 Patient Education: Patient [...] and hgba1c. 04/14/2013 Appointment: Ally Manzanares WPtel: [address] [place], [place] [phone] New Patient 04/14/2013 Patient Education: Patient Medication Summary Completed 04/14/2013 Appointment: Ally Manzanares WPtel: [address] [place], [place] [phone] New Patient 04/05/2013 Referral: Dr Trujillo Referral Initiated Instructions Comment STOP BYSTOLIC-START METOPROLOL . Hypertension - well controlled but bys tolic is not covered-will switch to metoprolol- continue other medications, continue with no added salt diet. Pt has been encouraged to exercise daily. The pt has been advised to call the office if there are any acute concerns about change in blood pressure readings at home. . Spdier bite -much improved-return next Thursday for follow up -continue wound care as directed . Well Adult Female - exam completed. Pap and breast exam completed. Pt will be called with results of her testing. She was advised to continue with yearly annual exams. Safe sex practices discussed during office visit today. Call if any abnormal gynecologic issues during the next year, otherwise, RTC yearly or prn. Joint pain-pleuritic chest pain-swelling of qryb-hcybdxb-ttqqhsp for autoimmune disease such as lupus-plan to [...] worse. Patient verbalized understanding of plan. . Cellulitis - start oral antibiotics as directed, return to clinic for wound check, call for acute change in symptoms, worsening redness, warmth, discharge. 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 . Diabetes Mellitus - controlled [...] in 2 months for weight check . Pt is currently we aring a [...] of plan. HOLD METFORMIN X 1 W LUMMI RESTART PANTOPRAZOLE DAILY CONTINUE CARAFATE BEFORE MEALS [...] radiculopathy-Dr Samuels to do surgery next month. bystolic 5mg daily - monitor blood pressure [...] replacement Iron def anemia-check cbc-continue iron supplement Decrease fetzima to 20 mg daily over [...] in blood pressure readings at home. Neck cdox-jvzwsloxyvquk-xfsyj to Dr Mckee for evaluation-patient has been [...] hands-intermittent fevers-check inflammatory labs including tick panel [phone] Samuels and call Sandee to spanish moss picker a copy . Elevated glucose-check Hgb A1C Low back pain-will write letter on patient's behalf for insurance precertification Aanlufb-hhymahvuss-uelz controlled-no changes
--- OUTSIDE RECORDS SUMMARY | 2019-03-04 02:55 | XMS REPORT | CCD ---
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[employer], [employer]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 09/15/2013 Marital status Unknown M arried 04/14/[address]: [id number] Never smoker 04/14/2013 Alcohol history Unknown occasionally [...] DS 800 mg-16 0 mg tablet RxNorm: 901122 1 Tablet(s) PO BID 04/20/2018 04/26/2018 Active mupirocin 2 % topica l ointment RxNorm: 751174 1 Application TOP BID 04/20/2018 04/29/2018 Active Diflucan 150 mg tablet RxNorm: 138844 1 Tablet(s) PO daily 11/02/2017 11/08/2017 Inactive Wellbutrin XL 300 mg 24 hr tablet, extended release RxNorm: 243253 TAKE 1 TABLET BY MOUTH ONCE DAILY 09/07/2017 No Stop Date Active metoprolol succinate ER 50 mg tablet,extended release 24 hr RxNorm: 049939 1 Tablet(s) PO daily 07/20/2017 01/15/2018 Inactive amitriptyline 25 mg tablet RxNorm: 294066 Tablet(s) 2 TAB(S) PO HS 07/09/2017 10/06/2017 Inactive Bystolic 5 mg tablet RxNorm: 276545 1 Tablet(s) PO daily 06/09/2017 07/08/2017 Inactive Vitamin D2 50,000 un it capsule RxNorm: 367850 1 Capsule(s) PO QW 05/12/2017 08/09/2017 Inactive metformin 500 mg tablet RxNorm: 084963 1/2 Tablet(s) PO QPM 05/12/2017 11/07/2017 Inactive metformin 500 mg tablet RxNorm: 256106 1/2 Tablet(s) PO QPM 05/12/2017 05/11/2017 Inactive lisinopril 20 mg-hyd rochlorothiazide 12.5 mg tablet RxNorm: 768665 1 TABLET(S) PO DAILY 04/23/2017 10/19/2017 Inactive Wellbutrin XL 300 mg 24 hr tablet, extended release RxNorm: 329042 1 Tablet(s) PO daily 1 TABLET(S) PO DAILY 12/01/2016 05/29/2017 Inactive Wellbutrin XL 150 mg 24 hr tablet, extended release RxNorm: 618059 1 TABLET(S) PO DAILY 10/07/2016 11/30/2016 Inactive amitriptyline 25 mg tablet RxNorm: 395088 2 TAB(S) PO HS,INSTR: FOR PAIN AND SLEEP 09/24/2016 07/08/2017 In active amitriptyline 25 mg tablet RxNorm: 370140 2 Tablet(s) PO QHS 09/23/2016 09/23/2016 Inactive meloxicam 15 mg tablet RxNorm: 158480 1 TABLET(S) PO DAILY 09/08/2016 12/06/[address] on hold until pt needs it: she is going to take (2) 7.5mg until gone cetirizine 10 mg tablet RxNorm: 6410048 1 Tablet(s) PO daily 07/22/2016 No Stop Date Active lisinopril 20 mg-hyd rochlorothiazide 12.5 mg tablet RxNorm: 382366 1 TABLET(S) PO DAILY 06/20/2016 12/16/2016 Inactive Wellbutrin XL 150 mg 24 hr tablet, extended release RxNorm: 139112 1 TABLET(S) PO DAILY 05/12/2016 08/09/2016 Inactive Victoza 3-Jean 0.6 mg /0.1 mL (18 mg/3 mL) subcutaneous pen injector RxNorm: 036454 0.6 Milligram(s) SQ daily 03/21/2016 07/21/2016 Inactive NovoFine Plus 32 gau ge x /6" needle RxNorm: 1 Miscellaneous daily 03/21/2016 07/21/2016 Inactive NovoFine Plus 32 gau ge x /6" needle RxNorm: 1 Miscellaneous daily 03/21/2016 03/20/2016 Inactive Victoza 3-Jean 0.6 mg /0.1 mL (18 mg/3 mL) subcutaneous pen injector RxNorm: 281130 0.6 Milligram(s) SQ daily 03/21/2016 03/20/2016 Inactive Vitamin D2 50,000 un it capsule RxNorm: 031284 1 Capsule(s) PO QW 03/20/2016 06/17/2016 Inactive meloxicam 15 mg tablet RxNorm: 943447 1 Tablet(s) PO daily 03/20/2016 07/17/[address] on hold until pt needs it: she is going to take (2) 7.5mg until gone lisinopril 20 mg-hyd rochlorothiazide 12.5 mg tablet RxNorm: 262923 1 TABLET(S) PO DAILY 02/19/2016 05/18/2016 Inactive Wellbutrin XL 150 mg 24 hr tablet, extended release RxNorm: 013545 1 Tablet(s) PO daily 11/09/2015 03/07/2016 Inactive gabapentin 800 mg ta blet RxNorm: 145334 1 Tablet(s) PO TID 11/09/2015 06/08/2017 Inactive Lexapro 10 mg tablet RxNorm: 870709 1 TABLET(S) PO QPM 11/05/2015 11/08/2015 Inactive lisinopril 20 mg-hyd rochlorothiazide 12.5 mg tablet RxNorm: 026229 1 TABLET(S) PO DAILY 10/18/2015 01/15/2016 Inactive Cipro 500 mg tablet RxNorm: 157673 1 Tablet(s) PO BID 08/17/2015 08/23/2015 Inactive Lexapro 10 mg tablet RxNorm: 418708 1 Tablet(s) PO QPM 07/24/2015 10/21/2015 Inactive Vitamin D2 50,000 un it capsule RxNorm: 973029 1 Capsule(s) PO QW 07/24/2015 10/21/2015 Inactive gabapentin 300 mg ca psule RxNorm: 196859 2 Capsule(s) PO TID 07/16/2015 11/08/2015 Inactive lisinopril 20 mg-hyd rochlorothiazide 12.5 mg tablet RxNorm: 574621 1 TABLET(S) PO DAILY 04/09/2015 07/07/2015 Inactive naproxen 250 mg tablet RxNorm: 463739 1-2 Tablet(s) PO BID as needed for pain 03/08/2015 No Stop Date Active Fetzima 40 mg capsul e,extended release RxNorm: 4934607 1 Capsule(s) PO adri y 12/22/2014 12/21/2014 In active Fetzima 40 mg capsul e,extended release RxNorm: 5642147 1 Capsule(s) PO adri y 12/22/2014 06/11/2015 In active Xanax 0.5 mg tablet RxNorm: 744784 1 Tablet(s) TAKE 1 TABLET BY MOUTH TWICE DAILY NEEDED FOR ANXIETY 11/17/2014 01/15/2015 Inactive lisinopril 20 mg-hyd rochlorothiazide 12.5 mg tablet RxNorm: 688020 1 Tablet(s) PO daily 11/17/2014 03/16/2015 Inactive Fetzima 20 mg capsul e,extended release RxNorm: 4741911 1 Capsule(s) PO adri y 11/17/2014 12/22/2014 In active Xanax 0.5 mg tablet RxNorm: 649234 1 Tablet(s) TAKE 1 TABLET BY MOUTH TWICE DAILY NEEDED FOR ANXIETY 10/27/2014 11/16/2014 Inactive Xanax 0.5 mg tablet RxNorm: 099152 TAKE 1 TABLET BY MOUTH TWICE DAILY NE EDED FOR ANXIETY 08/25/2014 10/23/2014 Inactive Brintellix 10 mg tablet RxNorm: 6499520 1 Tablet(s) PO daily 07/04/2014 07/03/2014 Inactive Brintellix 10 mg tablet RxNorm: 9996519 1 Tablet(s) PO daily 07/04/2014 11/16/2014 Inactive Brintellix 10 mg tablet RxNorm: 3393621 1 Tablet(s) PO daily 06/09/2014 07/03/2014 Inactive Contrave 8 mg-90 mg tablet,extended release RxNorm: 1796885 2 Tablet(s) PO BID 06/09/2014 09/06/2014 In active 1 tab q am x 1 week, then 1 tab BID x 1 week, then 2 q am and 1 q pm x 1 week then 2 tabs BID thereafter Contrave 8 mg-90 mg tablet,extended release RxNorm: 8184059 2 Tablet(s) PO BID 06/09/2014 06/08/2014 In active 1 tab q am x 1 week, then 1 tab BID x 1 week, then 2 q am and 1 q pm x 1 week then 2 tabs BID thereafter metformin 500 mg tablet RxNorm: 164662 1/2 Tablet(s) PO BID 05/18/2014 09/14/2014 Inactive Brintellix 10 mg tablet RxNorm: 4313988 2 Tablet(s) PO daily 05/16/2014 06/08/2014 Inactive Xanax 0.5 mg tablet RxNorm: 043890 1 Tablet(s) PO BID PRN 04/06/2014 08/25/2014 Inactive Wellbutrin XL 150 mg 24 hr tablet, extended release RxNorm: 641247 1 Tablet(s) PO daily 04/04/2014 05/15/2014 Inactive [SAVINGS FOR UNINSURED PATIENTS -- BIN:0 [id number], PCN: [id number], Group: [id number], ID# [id number], Process claim through [employer], for questions: . THIS IS NOT INSURANCE.] pantoprazole 40 mg t ablet,delayed release RxNorm: 682503 1 Tablet(s) PO daily 12/01/2013 03/30/2014 In active Vitamin D3 2,000 uni t tablet RxNorm: 143696 1 Tablet(s) PO daily 10/10/2013 No Stop Date Active Vitamin D2 50,000 un it capsule RxNorm: 552663 1 Capsule(s) PO QW 10/10/2013 11/16/2014 Inactive vitamin d 50,000 units weekly x 12 weeks then 5000 units daily thereafter escitalopram 20 mg t ablet RxNorm: 269936 1 Tablet(s) PO daily 10/10/2013 04/04/2014 Inactive trazodone 100 mg tablet RxNorm: 308087 1 TABLET(S) PO QHS 09/19/2013 01/16/2014 Inactive trazodone 100 mg tablet RxNorm: 237740 1 Tablet(s) PO QHS 08/16/2013 09/14/2013 Inactive metformin 500 mg tablet RxNorm: 719759 1 Tablet(s) PO BID 08/16/2013 04/03/2014 Inactive Diflucan 150 mg tablet RxNorm: 858569 1 Tablet(s) PO daily 08/16/2013 08/22/2013 Inactive metformin 500 mg tablet RxNorm: 735295 1/2 Tablet(s) PO BID 1/2 tab in the even ing x 1 week then 1/2 tab twice daily 04/26/2013 08/15/2013 Inactive Vitamin D2 50,000 un it capsule RxNorm: 287037 1 Capsule(s) PO QW 04/21/2013 10/09/2013 Inactive vitamin d 50,000 units weekly x 12 weeks then 5000 units daily thereafter Lexapro 10 mg tablet RxNorm: 493444 1 Tablet(s) PO daily 04/14/2013 10/09/2013 Inactive Slow Fe oral RxNorm: 42762 oral No Start Date Active tizanidine 2 mg tablet RxNorm: 160672 1 Tablet(s) PO TID No Start Date Active vitamin B complex ca psule RxNorm: 1 Capsule(s) PO daily No Start Date Active diclofenac 75 mg-mis oprostol 200 mcg tablet,immediate,delayed release RxNorm: 0586080 1 Tablet(s) PO BID No Start Date Active methocarbamol 500 mg tablet RxNorm: 504100 1 Tablet(s) PO TID No Start Date Active lisinopril 20 mg-hyd rochlorothiazide 12.5 mg tablet RxNorm: 803876 1 Tablet(s) PO daily No Start Date 11/16/2014 Inactive gabapentin 300 mg ca psule RxNorm: 493613 1 Capsule(s) PO TID No Start Date 07/15/2015 Inactive cetirizine 10 mg tablet RxNorm: 4801874 1 Tablet(s) PO daily No Start Date 03/05/2016 Inactive Vitamin D2 50,000 un it capsule RxNorm: 971545 1 Capsule(s) PO QW No Start Date 04/20/2013 Inactive pantoprazole 40 mg t ablet,delayed release RxNorm: 150240 1 Tablet(s) PO daily No Start Date 10/09/2013 Inactive amitriptyline 10 mg tablet RxNorm: 365258 1 Tablet(s) PO QHS No Start Date 09/22/2016 Inactive meloxicam 7.5 mg tablet RxNorm: 020878 1 Tablet(s) PO daily No Start Date 03/19/2016 Inactive ibuprofen 200 mg tablet RxNorm: 617007 3 Tablet(s) PO TID No Start Date 11/30/2013 Inactive Advair Diskus 250 mc g-50 mcg/dose powder for inhalation RxNorm: 2050709 2 INH daily No Start Date 07/23/2015 Inactive Medication Administered No Medication Administered data Immunizations Vaccine Codes Date Status Influenza CVX: 141 12/06 completed Influenza CVX: 141 12/07 completed Influenza CVX: 141 12/27 completed Assessments Condition Codes Effectiv e Dates Insect bite (nonvenomous), left lower leg, initial [...] 10/10/2013 Laboratory exam ordered as part of [facility] general medical examination ICD-9: V72.62 10/06/2013 Swelling of extremity ICD-9: 729.81 09/15/2013 JOINT PAIN-UNSPEC ICD-9: 719.40 09/15/2013 Pleuritic chest pain ICD-9: 786.52 09/15/2013 Well woman exam with routine gynecological exam ICD-9: V72.31 09/15/2013 Nasal septal ulcer ICD-9: 478.19 09/15/2013 ANEMIA ICD-9: 285.9 08/07 DM W/O COMPLICATION TYPE II, UNCONTROLLED SNOMED: [id number] ICD-9: 250.02 08/16/2013 Urinary tract infection ICD-9: 599.0 08/16/2013 Elevated alkaline phosphatase level ICD-9: 790.5 04/14/2013 Elevated glucose ICD-9: 790.29 04/14/2013 Elevated blood pressure ICD-9: 796.2 04/14/2013 Reason For Visit Reason For Visit Effective Dates Notes cellulitis 04/20/2018 rash 11/02/2017 hypertension 10/13/2017 hypertension [...] 24.3 pg 10/13/2017 Cbc With Differential Ord2 [place]% 10.1 % 10/13/2017 Cbc With Differential Ord2 [...] 1.71 K/ul 10/13/2017 Cbc With Differential Ord2 [place] ABS# 0.7 K/ul 10/13/2017 Cbc With Differential Ord2 Eos ABS# 0.1 K/ul 10/13/2017 Cbc With Differential Ord2 Baso ABS# 0.0 K/ul 10/13/2017 %Hba1C Nlw279 % HbA1c 61506-3 6.3 % 10/13/2017 %Hba1C Yau277 Gluc Ave 134 mg/dL 10/13/2017 Comp Metabolic Fpj231 NA 144 mEq/L 10/13/2017 Comp Metabolic Pvc741 K 4.2 mEq/L 10/13/2017 Comp Metabolic Ckl187 CL 110 mEq/L 10/13/2017 Comp Metabolic Otf139 CO2 25.0 mEq/L 10/13/2017 Comp Metabolic Ryw857 AN ION GAP 13 10/13/2017 Comp Metabolic Nvg369 GL UCOSE 99 mg/dL 10/13/2017 Comp Metabolic Ypi240 Cr eat 0.6 mg/dL 10/13/2017 Comp Metabolic Shw002 eG FR 116 ml/min/1.73m2 09/2017 Comp Metabolic Nah740 BUN 11 mg/dL 10/13/2017 Comp Metabolic Cpu686 B/ C Ratio 19.0 Ratio 10/13/2017 Comp Metabolic Vtm311 CA LCIUM 9.1 mg/dL 10/13/2017 Comp Metabolic Pda482 AL K PHOS 134 U/L 10/13/2017 Comp Metabolic Kgz652 T(SGOT) 18 U/L 10/13/2017 Comp Metabolic Hce909 AL T(SGPT) 17 U/L 10/13/2017 Comp Metabolic Fjd049 BI LI T 0.4 mg/dL 10/13/2017 Comp Metabolic Psf275 AL BUMIN 4.0 g/dL 10/13/2017 Comp Metabolic End133 TP RO 6.6 g/dL 10/13/2017 Comp Metabolic Wcu715 GL OB 2.6 g/dL 10/13/2017 Comp Metabolic Zmp640 A/ G Ratio 1.5 Ratio 10/13/2017 Comp Metabolic Onh132 Os mo 286 mOsmo 10/13/2017 Vitamin D 25 Oh Aoq2915 VITAMIN D, 25 HYDROXY 55.13 ng/mL 10/13/2017 I Fecal Occult Blood Lti8209 IFOB Negative 05/13/2017 B12 Awc013 B12 427.00 pg/ml 05/12/2017 Tibc Ord40 Iron 35 ug/dl 05/12/2017 Tibc Ord40 UIBC 412 ug/dL 05/12/2017 Tibc Ord40 TIBC 447 ug/dL 05/12/2017 Tibc Ord40 Fe-%Sat 7.8 % 05/12/2017 Ferritin Ord22 FERRITIN 7.2 ng/mL 05/12/2017 Comp Metabolic Nlf174 NA 142 mEq/L 05/12/2017 Comp Metabolic Mye980 K 4.0 mEq/L 05/12/2017 Comp Metabolic Puc987 CL 106 mEq/L 05/12/2017 Comp Metabolic Ofc135 CO2 26.0 mEq/L 05/12/2017 Comp Metabolic Xri400 AN ION GAP 14 05/12/2017 Comp Metabolic Pzy389 GL UCOSE 137 mg/dL 05/12/2017 Comp Metabolic Apl306 Cr eat 0.6 mg/dL 05/12/2017 Comp Metabolic Fix429 eG FR 116 ml/min/1.73m2 08/2017 Comp Metabolic Bdk154 BUN 9 mg/dL 05/12/2017 Comp Metabolic Voq310 B/ C Ratio 15.5 Ratio 05/12/2017 Comp Metabolic Pdq541 CA LCIUM 8.8 mg/dL 05/12/2017 Comp Metabolic Lzg220 AL K PHOS 171 U/L 05/12/2017 Comp Metabolic Smz235 T(SGOT) 18 U/L 05/12/2017 Comp Metabolic Jmm100 AL T(SGPT) 17 U/L 05/12/2017 Comp Metabolic Otn257 BI LI T 0.2 mg/dL 05/12/2017 Comp Metabolic Ssa135 AL BUMIN 3.9 g/dL 05/12/2017 Comp Metabolic Szc523 TP RO 6.5 g/dL 05/12/2017 Comp Metabolic Jlc298 GL OB 2.6 g/dL 05/12/2017 Comp Metabolic Hxq833 A/ G Ratio 1.5 Ratio 05/12/2017 Comp Metabolic Lrm292 Os mo 284 mOsmo 05/12/2017 Iron Ord72 Iron 33 ug/dl 05/12/2017 Vitamin D 25 Oh Ukr6342 VITAMIN D, 25 HYDROXY 31.02 ng/mL 05/12/2017 [...] 22.7 % 05/12/2017 Cbc With Differential Ord2 [place]% 8.1 % 05/12/2017 Cbc With Differential Ord2 [...] 1.54 K/ul 05/12/2017 Cbc With Differential Ord2 [place] ABS# 0.6 K/ul 05/12/2017 Cbc With Differential Ord2 Eos ABS# 0.2 K/ul 05/12/2017 Cbc With Differential Ord2 Baso ABS# 0.0 K/ul 05/12/2017 %Hba1C Pje615 % HbA1c 26618-7 6.6 % 05/12/2017 %Hba1C Oek187 Gluc Ave 143 mg/dL 05/12/2017 Tsh Ord6 TSH (3rd IS) 3.18 uIU/mL 05/12/2017 Lymes Disease Total Antibodies With Western Blot Refle x [id number] B. BURGDORFERI, IGG/IGM 0.048 12/08/2016 Lymes Disease Total Antibodies With Western Blot Refle x [id number] 12/08/2016 Alena Reflex Profile [id number] ALENA ([place]) SCREEN NONE DETECTED 017 Ehrlichia Chaffeensis Antibody Igm 664744 EHRLICHIA CHAFFEENSIS IGM < 1:16 12/05/2016 [place] Spotted Fever Igg/Igm 51673 3 [place]ME [place] SPOTTED FEVER IGM EIA . 12/05/2016 [place] Spotted Fever Igg/Igm 87110 3 RMSF, IGM 0.43 index 12/05/2016 [place] Spotted Fever Igg/Igm 87737 3 GUME [place] SPOTTED FEVER IGG EIA FLEX . 12/05/2016 [place] Spotted Fever Igg/Igm 58074 3 RMSF, IGG SCREEN-FLEX Negative 12/05/2016 Ehrlichia Chaffeensis Antibody Igg 151031 EHRLICHIA CHAFFEENSIS IGG <1:64 12/05/2016 Tibc Ord40 Iron 37 ug/dl 12/02/2016 Tibc Ord40 UIBC 372 ug/dL 12/02/2016 Tibc Ord40 TIBC 409 ug/dL 12/02/2016 Tibc Ord40 Fe-%Sat 9.0 % 12/02/2016 Ferritin Ord22 FERRITIN 13.9 ng/mL 12/02/2016 B12 Jwr853 B12 344.00 pg/ml 12/02/2016 %Hba1C Ymk821 % HbA1c 38841-8 6.1 % 12/01/2016 %Hba1C Wbb498 Gluc Ave 128 mg/dL 12/01/2016 Cbc With [...] 26.2 pg 12/01/2016 Cbc With Differential Ord2 [place]% 8.8 % 12/01/2016 Cbc With Differential Ord2 [...] 1.75 K/ul 12/01/2016 Cbc With Differential Ord2 [place] ABS# 0.6 K/ul 12/01/2016 Cbc With Differential Ord2 Eos ABS# 0.4 K/ul 12/01/2016 Cbc With Differential Ord2 Baso ABS# 0.1 K/ul 12/01/2016 Tsh Ord6 hTSH II 1.80 uIU/mL 12/01/2016 C-Reactive Protein Qnt Crqnt CRP 1.5 mg/dl 12/01/2016 Sed Rate Ord21 ESR 14 mm/hr 12/01/2016 Ra Factor Jzr732 RA FACT OR <10 IU/ml 12/01/2016 Vitamin D 25 Oh Qlu7301 VITAMIN D, 25 HYDROXY 30.98 ng/mL 12/01/2016 Comp Metabolic Gho848 NA 140 mEq/L 12/01/2016 Comp Metabolic Bfk315 K 3.9 mEq/L 12/01/2016 Comp Metabolic Dwm178 CL 106 mEq/L 12/01/2016 Comp Metabolic Fbd296 CO2 26.0 mEq/L 12/01/2016 Comp Metabolic Ytp987 AN ION GAP 12 12/01/2016 Comp Metabolic Blo212 GL UCOSE 147 mg/dL 12/01/2016 Comp Metabolic Cyo376 Cr eat 0.6 mg/dL 12/01/2016 Comp Metabolic Viq900 eG FR 114 ml/min/1.73m2 11/08 Comp Metabolic Oyz063 BUN 11 mg/dL 12/01/2016 Comp Metabolic Ovd368 B/ C Ratio 18.6 Ratio 12/01/2016 Comp Metabolic Jvt762 CA LCIUM 8.8 mg/dL 12/01/2016 Comp Metabolic Ida629 AL K PHOS 138 U/L 12/01/2016 Comp Metabolic Jxl231 T(SGOT) 34 U/L 12/01/2016 Comp Metabolic Yxt083 AL T(SGPT) 26 U/L 12/01/2016 Comp Metabolic Qsd128 BI LI T 0.3 mg/dL 12/01/2016 Comp Metabolic Ijo042 AL BUMIN 3.8 g/dL 12/01/2016 Comp Metabolic Jkl779 TP RO 6.2 g/dL 12/01/2016 Comp Metabolic Qtj087 GL OB 2.4 g/dL 12/01/2016 Comp Metabolic Elt197 A/ G Ratio 1.6 Ratio 12/01/2016 Comp Metabolic Xpr931 Os mo 281 mOsmo 12/01/2016 %Hba1C Ydy012 % HbA1c 52399-3 6.3 % 08/05/2016 %Hba1C Uao702 Gluc Ave 134 mg/dL 08/05/2016 Alena [id number] ALENA ([place]A) Joshua CHADWICK NONE DETECTED 017 Vitamin D 25 Oh Sye1274 VITAMIN D, 25 HYDROXY 32.26 ng/mL 03/07/2016 Ra Factor Kqr608 RA FACT OR <10 IU/ml 03/07/2016 C-Reactive Protein Qnt Crqnt CRP 2.0 mg/dl 03/06/2016 Sed Rate Ord21 ESR 32 mm/hr 03/06/2016 %Hba1C Jec711 % HbA1c 93293-2 6.3 % 03/06/2016 %Hba1C Fqp102 Gluc Ave 134 mg/dL 03/06/2016 Comp Metabolic Vug380 NA 138 mEq/L 03/06/2016 Comp Metabolic Mou705 K 4.3 mEq/L 03/06/2016 Comp Metabolic Cai837 CL 103 mEq/L 03/06/2016 Comp Metabolic Sxm153 CO2 23.0 mEq/L 03/06/2016 Comp Metabolic Ajm743 AN ION GAP 16 03/06/2016 Comp Metabolic Tes433 GL UCOSE 148 mg/dL 03/06/2016 Comp Metabolic Nkw747 Cr eat 0.6 mg/dL 03/06/2016 Comp Metabolic Crr810 eG FR 104 ml/min/1.73m2 02/07 Comp Metabolic Vvh882 BUN 13 mg/dL 03/06/2016 Comp Metabolic Sia309 B/ C Ratio 20.3 Ratio 03/06/2016 Comp Metabolic Tsu319 CA LCIUM 9.7 mg/dL 03/06/2016 Comp Metabolic Epf693 AL K PHOS 146 U/L 03/06/2016 Comp Metabolic And403 T(SGOT) 25 U/L 03/06/2016 Comp Metabolic Awh891 AL T(SGPT) 25 U/L 03/06/2016 Comp Metabolic Ayh511 BI LI T 0.3 mg/dL 03/06/2016 Comp Metabolic Wnv082 AL BUMIN 4.1 g/dL 03/06/2016 Comp Metabolic Kod691 TP RO 6.9 g/dL 03/06/2016 Comp Metabolic Mla490 GL OB 2.8 g/dL 03/06/2016 Comp Metabolic Drm725 A/ G Ratio 1.5 Ratio 03/06/2016 Comp Metabolic Vhi717 Os mo 279 mOsmo 03/06/2016 Cbc With [...] 27.1 pg 03/06/2016 Cbc With Differential Ord2 [place]% 9.2 % 03/06/2016 Cbc With Differential Ord2 [...] 1.35 K/ul 03/06/2016 Cbc With Differential Ord2 [place] ABS# 0.5 K/ul 03/06/2016 Cbc With Differential Ord2 Eos ABS# 0.2 K/ul 03/06/2016 Cbc With Differential Ord2 Baso ABS# 0.1 K/ul 03/06/2016 Tsh Ord6 hTSH II 3.61 uIU/mL 03/06/2016 Culture Urine [id number] URI NE CULTURE SEE NOTES 08/20/2015 Culture Urine [id number] Con tinued Results 08/20/2015 Urine Culture Ucult Comp lete Growth of aerobe sent to ref lab 08/18/2015 Vitamin D 25 Oh Gsa9764 VITAMIN D, 25 HYDROXY 24.39 ng/mL 07/18/2015 Comp Metabolic Bbb278 NA 136 mEq/L 07/17/2015 Comp Metabolic Mtu143 K 4.0 mEq/L 07/17/2015 Comp Metabolic Ffl564 CL 100 mEq/L 07/17/2015 Comp Metabolic Cee600 CO2 27.0 mEq/L 07/17/2015 Comp Metabolic Bmj052 AN ION GAP 13 07/17/2015 Comp Metabolic Oke594 GL UCOSE 121 mg/dL 07/17/2015 Comp Metabolic Nzu435 Cr eat 0.7 mg/dL 07/17/2015 Comp Metabolic Awo511 eG FR 96 ml/min/1.73m2 07/16 Comp Metabolic Iwu821 BUN 10 mg/dL 07/17/2015 Comp Metabolic Dfd918 B/ C Ratio 14.5 Ratio 07/17/2015 Comp Metabolic Epb157 CA LCIUM 8.9 mg/dL 07/17/2015 Comp Metabolic Mqf508 AL K PHOS 146 U/L 07/17/2015 Comp Metabolic Vuq502 T(SGOT) 20 U/L 07/17/2015 Comp Metabolic Bfa130 AL T(SGPT) 22 U/L 07/17/2015 Comp Metabolic Mbc217 BI LI T 0.4 mg/dL 07/17/2015 Comp Metabolic Dyo084 AL BUMIN 4.0 g/dL 07/17/2015 Comp Metabolic Vzs294 TP RO 6.6 g/dL 07/17/2015 Comp Metabolic Ncw876 GL OB 2.6 g/dL 07/17/2015 Comp Metabolic Ict929 A/ G Ratio 1.6 Ratio 07/17/2015 Comp Metabolic Qjc375 Os mo 272 mOsmo 07/17/2015 Sed Rate [...] 26.1 pg 07/17/2015 Cbc With Differential Ord2 [place]% 12.6 % 07/17/2015 Cbc With Differential Ord2 [...] 1.25 K/ul 07/17/2015 Cbc With Differential Ord2 [place] ABS# 0.9 K/ul 07/17/2015 Cbc With Differential [...] Crqnt CRP 2.9 mg/dl 07/17/2015 GFR CALC 3579310 GFR AA >60 ML/MIN 10/06/2013 GFR CALC 2416562 GFR NON -AA >60 ML/MIN 10/06/2013 CHEM 14 0727215 AST 34 U/L 10/06/2013 CHEM 14 3071808 ALT 30 IU/L 10/06/2013 CHEM 14 5123433 BUN 11 MG/DL 10/06/2013 CHEM 14 0860954 ALBUMIN 4.4 GM/DL 10/06/2013 CHEM 14 4261024 CHLORIDE 107 MMOL/L 10/06/2013 CHEM 14 8866016 BILI TOT 0.4 MG/DL 10/06/2013 CHEM 14 6177146 ALK PHOS 133 U/L 10/06/2013 CHEM 14 6540266 SODIUM 140 MMOL/L 10/06/2013 CHEM 14 8622233 CREATINI NE 0.67 MG/DL 10/06/2013 CHEM 14 9033747 CALCIUM 9.3 MG/DL 10/06/2013 CHEM 14 2328162 POTASSIUM 4.0 MMOL/L 10/06/2013 CHEM 14 6345861 PROT TOT 7.1 GM/DL 10/06/2013 CHEM 14 1303045 GLUCOSE 108 MG/DL 10/06/2013 CHEM 14 9087728 BICARB 25 MMOL/L 10/06/2013 CHEM 14 8228901 ANION GAP 8 MEQ/L 10/06/2013 VIT D TOTL 5860279 VIT D TOTL 37 NG/ML 10/06/2013 GC/CHL PRB 5683282 CHLM PROBE NEG 09/21/2013 GC/CHL PRB 8310721 GC NV OBE NEG 09/21/2013 DNA AB 9864043 DNA AB 36 IU/ML 09/17/2013 RA FACTOR 7135209 RA FAC TOR <20.0 IU/ML 09/16/2013 SM MUSC AB 9329456 SM MU SC AB <1:20 09/16/2013 CARDIO G/M 3237168 CARDI O IGG 1.7 GPLU 09/16/2013 CARDIO G/M 9129743 CARDI O IGM 4.8 MPLU 09/16/2013 ALENA SCR [id number] ALENA SCR <1:80 09/16/2013 CRP [id number] CRP 1.1 MG/DL 09/15/2013 ESR 7193255 ESR 22 MM/HR 09/15/2013 CBC 5061674 WBC 5.5 10e9/L 04/26/2013 CBC 6374167 RBC 4.89 10e12/L 04/26/2013 CBC 9210736 HGB 12.8 g/dL 04/26/2013 CBC 7388694 HCT DET 39.5 % 04/26/2013 CBC 8936168 MCV 80.8 fL 04/26/2013 CBC 0603570 MCH 26.2 pg 04/26/2013 CBC 0014016 MCHC 32.4 g/dL 04/26/2013 CBC 6190891 PLT 299 10e9/L 04/26/2013 CBC 2150638 MPV 10.9 fL 04/26/2013 CBC 2809347 WAN % 59.0 % 04/26/2013 CBC 6756217 LY % 29.6 % 04/26/2013 CBC 8064486 MON % 9.1 % 04/26/2013 CBC 0390867 EOS % 1.8 % 04/26/2013 CBC 6569653 BASO % 0.5 % 04/26/2013 CBC 1580336 RDW 13.9 % 04/26/2013 CBC 8076331 ABS WAN 3.25 10e9/L 04/26/2013 CBC [id number] ABS LYMPH 1.63 10e9/L 04/26/2013 CBC 9943943 ABS MONO 0.50 10e9/L 04/26/2013 CBC 7209200 ABS EOS 0.10 10e9/L 04/26/2013 CBC 4031448 ABS BASO 0.03 10e9/L 04/26/2013 CBC [id number] RDW-SD 39.9 fL 04/26/2013 URINALYSIS NONAUTO W/O SCOPE 09532 Specific [place] 1.020 DateTime(Free Text in Apr) URINALYSIS NONAUTO W/O SCOPE 52486 PH 6.0 DateTime(Free Rik t in Aprima) URINALYSIS NONAUTO W/O SCOPE 15400 GLUCOSE neg DateTime(Free Rik t in Aprima) URINALYSIS NONAUTO W/O SCOPE 10364 Protein neg DateTime(Free Rik t in Aprima) URINALYSIS NONAUTO W/O SCOPE 42344 Blood neg DateTime(Free Rik t in Aprima) URINALYSIS NONAUTO W/O SCOPE 41944 Bilirubin neg DateTime(Free Rik t in Aprima) URINALYSIS NONAUTO W/O SCOPE 37086 Ketones neg DateTime(Free Rik t in Aprima) URINALYSIS NONAUTO W/O SCOPE 36013 Urobilinogen neg DateTime(Free Text in Apr) URINALYSIS NONAUTO W/O SCOPE 51351 Nitrite neg DateTime(Free Rik t in Apr) URINALYSIS NONAUTO W/O SCOPE 14621 Leukocytes 1+ DateTime(Free Text in ) Review [...] No alteration of consciousness 08/05/2016 Psychiatric anxiety 053 Psychiatric depression 0 08/05/2016 Endocrine No dry [...] No alteration of consciousness 07/22/2016 Psychiatric anxiety 0508/2016 Psychiatric depression 0 07/22/2016 Endocrine No dry [...] 07/24/2015 Psychiatric depression 0 07/24/2015 Psychiatric anxiety 051 09/2015 Constitutional recent illness 07/16/2015 Constitutional No anorexia [...] masses 09/15/2013 None Full Exam - General 1995 Ears/Nose/Throat [...] Date URINALYSIS NONAUTO W /O SCOPE CPT-4: 59799 11/02/2017 OCCULT BLOOD FECES CPT- 4: 83584 12/08/2016 IMMUNIZATION ADMIN CPT- 4: 55368 12/07/2015 FLU VACC 4 AMBER 3 YRS PLUS IM SNOMED CT: [id number] CPT-4: 93111 12/07/2015 URINALYSIS NONAUTO W /O SCOPE CPT-4: 09571 08/17/2015 CHEM 14 (COMPREHEN M ETABOLIC PANEL) CPT-4: 61309 10/06/2013 VIT D TOTL (VITAMIN D 25 HYDROXY) CPT-4: 02380 10/06/2013 CRP (C-REACTIVE PROT EIN) CPT-4: 73185 09/15/2013 ESR (RBC SED RATE AU TOMATED) CPT-4: 64876 09/15/2013 ROUTINE VENIPUNCTURE CPT-4: 30791 09/15/2013 URINALYSIS NONAUTO W /O SCOPE CPT-4: 54983 08/16/2013 C URINE RT CPT-4: 7824613 08/16/2013 C URINE RT (URINE CU LTURE/COLONY COUNT) CPT-4: 49714 08/16/2013 ROUTINE VENIPUNCTURE CPT-4: 02363 04/26/2013 Vital Signs Date Vital 04/20/2018 Blood Pressure 1: 150/90 Code: 8480-6 Heart Rate 1: 104 bpm Height: SpO2: 95% Weight: 11/02/2017 Blood Pressure 1: 130/76 Code: 8480-6 BMI: 37.6 Code: 86432-2 Heart Rate 1: 68 bpm Height: 5'5" SpO2: 98% Weight: 226 lbs 10/13/2017 Blood Pressure 1: 140/86 Code: 8480-6 BMI: 37.4 Code: 67399-6 Heart Rate 1: 78 bpm Height: 5'5" SpO2: 98% Weight: 225 lbs 07/20/2017 Blood Pressure 1: 128/80 Code: 8480-6 BMI: 39.1 Code: 57534-0 Heart Rate 1: 75 bpm Height: 5'5" SpO2: 98% Weight: 235 lbs 06/09/2017 Blood Pressure 1: 150/92 Code: 8480-6 BMI: 39.1 Code: 64482-3 Heart Rate 1: 106 bpm Height: 5'5" SpO2: 98% Weight: 235 lbs 05/12/2017 Blood Pressure 1: 144/68 Code: 8480-6 BMI: 38.9 Code: 52876-5 Heart Rate 1: 89 bpm Height: 5'5" SpO2: 98% Weight: 234 lbs 12/01/2016 Blood Pressure 1: 140/88 Code: 8480-6 BMI: 39.6 Code: 24070-0 Heart Rate 1: 101 bpm Height: 5'5" SpO2: 97% Weight: 238 lbs 08/05/2016 Blood Pressure 1: 134/82 Code: 8480-6 Heart Rate 1: 113 bpm Height: 5'5" SpO2: 98% 07/22/2016 Blood Pressure 1: 142/84 Code: 8480-6 BMI: 39.6 Code: 60532-1 Heart Rate 1: 103 bpm Height: 5'5" SpO2: 97% Weight: 238 lbs 03/06/2016 Blood Pressure 1: 138/86 Code: 8480-6 Heart Rate 1: 100 bpm SpO2: 96% Weight: 246 lbs 12/07/2015 Blood Pressure 1: 140/78 Code: 8480-6 BMI: 40.8 Code: 95077-5 Heart Rate 1: 97 bpm Height: 5'6" SpO2: 98% Weight: 250 lbs 11/09/2015 Blood Pressure 1: 118/84 Code: 8480-6 BMI: 40.7 Code: 61566-6 Heart Rate 1: 85 bpm Height: 5'6" SpO2: 98% Weight: 249 lbs 08/17/2015 Blood Pressure 1: 122/82 Code: 8480-6 BMI: 39.4 Code: 90681-8 Heart Rate 1: 86 bpm Height: 5'6" SpO2: 95% Weight: 241 lbs 07/24/2015 Blood Pressure 1: 118/76 Code: 8480-6 BMI: 39.9 Code: 70350-7 Heart Rate 1: 97 bpm Height: 5'6" SpO2: 96% Weight: 244 lbs 07/16/2015 Blood Pressure 1: 158/80 Code: 8480-6 Blood Pressure 1: 120/86 Code: 8480-6 Heart Rate 1: 105 bpm Height: 5'6" SpO2: 98% Weight: 06/12/2015 Blood Pressure 1: 128/82 Code: 8480-6 BMI: 39.9 Code: 08657-9 Heart Rate 1: 89 bpm Height: 5'6" SpO2: 98% Weight: 244 lbs 03/08/2015 Blood Pressure 1: 130/86 Code: 8480-6 Heart Rate 1: 98 bpm Height: 5'6" SpO2: 97% Weight: 12/29/2014 Blood Pressure 1: 138/88 Code: 8480-6 BMI: 39.2 Code: 31773-1 Heart Rate 1: 109 bpm Height: 5'6" SpO2: 97% Weight: 240 lbs 11/17/2014 Blood Pressure 1: 170/98 Code: 8480-6 BMI: 39.7 Code: 99055-7 Heart Rate 1: 92 bpm Height: 5'6" SpO2: 98% Weight: 243 lbs 05/16/2014 Blood Pressure 1: 130/82 Code: 8480-6 BMI: 39.2 Code: 53609-0 Heart Rate 1: 88 bpm Height: 5'6" Weight: 240 lbs 04/04/2014 Blood Pressure 1: 146/92 Code: 8480-6 Blood Pressure 2: 136/86 Code: 8480-6 BMI: 39.9 Code: 68738-5 Heart Rate 1: 68 bpm Height: 5'6" Weight: 244 lbs 12/01/2013 Blood Pressure 1: 142/80 Code: 8480-6 BMI: 38.4 Code: 89726-5 Heart Rate 1: 80 bpm Height: 5'6" Weight: 235 lbs 10/10/2013 Blood Pressure 1: 128/88 Code: 8480-6 BMI: 38.7 Code: 49317-7 Heart Rate 1: 88 bpm Height: 5'6" Weight: 237 lbs 09/15/2013 Blood Pressure 1: 112/74 Code: 8480-6 BMI: 39.0 Code: 86283-2 Heart Rate 1: 80 bpm Height: 5'6" Weight: 239 lbs 08/16/2013 Blood Pressure 1: 124/64 Code: 8480-6 BMI: 39.0 Code: 54381-9 Heart Rate 1: 88 bpm Height: 5'6" Weight: 239 lbs 06/06/2013 Blood Pressure 1: 120/72 Code: 8480-6 BMI: 37.9 Code: 60570-2 Heart Rate 1: 84 bpm Height: 5'6" Weight: 232 lbs 04/26/2013 Blood Pressure 1: 148/86 Code: 8480-6 BMI: 37.7 Code: 04889-2 Heart Rate 1: 84 bpm Height: 5'6" Weight: 231 lbs 04/14/2013 Blood Pressure 1: 148/92 Code: 8480-6 BMI: 38.2 Code: 25489-1 Heart Rate 1: 88 bpm Height: 5'6" Respiratory Rate: 16 bpm Weight: 234 lbs Functional Status No Functional Status data History of Present Illness Symptom Name Status Resu lt Effective Date Notes Quality acute 04/20/2018 None Onset and Resolution [...] Encounters Encounter Performer Loca tion Codes Date ([id number]) 51254 EST. P ATIENT, LEVEL III Diagnosis: Insect bite (nonvenomous), left lower leg, initial encounter[ICD10: S80.862A] Katy Manzanares MD, [facility] CPT-4: 12396 04/20/2018 [id number] EST. PATIENT, LEVEL II Diagnosis: Dysuria[ICD10: R30.0] Diagnosis: Other specified conditions associated with female genital organs and menstrual cycle[ICD10: N94.89] Katy Manzanares MD, [facility] CPT-4: 48974 11/02/2017 ([id number]) 08950 EST. 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 P ATIENT, LEVEL III Diagnosis: Essential (primary) hypertension[ICD10: I10] Katy Manzanares MD, [facility] CPT-4: 94758 07/20/2017 ([id number]) 34367 EST. P ATIENT, LEVEL III Diagnosis: Essential (primary) hypertension[ICD10: I10] Katy Manzanares MD, [facility] CPT-4: 96549 06/09/2017 ([id number]) 85677 EST. 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 P ATIENT, LEVEL IV Diagnosis: Essential [...] Diagnosis: Fever, unspecified[ICD10: R50.9] Katy Manzanares MD, [facility] CPT- 4: 26744 12/01/2016 ([id number]) 95990 EST. P ATIENT, LEVEL III Diagnosis: Impaired fasting glucose[ICD10: R73.01] Diagnosis: Low back pain[ICD10: M54.5] Diagnosis: Generalized anxiety disorder[ICD10: F41.1] Katy Manzanares MD, [facility] CPT-4: 65457 08/05/2016 ([id number]) 51571 EST. P ATIENT, LEVEL III Diagnosis: Essential (primary) hypertension[ICD10: I10] Diagnosis: Radiculopathy, lumbar region[ICD10: M54.16] Katy Manzanares MD, [facility] CPT-4: 68617 07/22/2016 ([id number]) Miscellaneou s no charge Diagnosis: Dysuria[ICD10: R30.0] Ally Manzanares MD, [facility] CPT-4: 91502 06/12/2016 ([id number]) 73664 EST. P ATIENT, LEVEL IV Diagnosis: Type 2 diabetes mellitus without complications[ICD10: E11.9] Diagnosis: Vitamin D deficiency, unspecified[ICD10: E55.9] Diagnosis: Generalized anxiety disorder[ICD10: F41.1] Diagnosis: Essential (primary) hypertension[ICD10: I10] Diagnosis: Radiculopathy, cervical region[ICD10: M54.12] Diagnosis: Cardiac murmur, unspecified[ICD10: R01.1] Katy Manzanares MD, [facility] CPT-4: 93599 03/06/2016 ([id number]) 46765 EST. P ATIENT, LEVEL III Diagnosis: Generalized anxiety disorder[ICD10: F41.1] Diagnosis: Major depressive disorder, recurrent, in partial remission[ICD10: F33.41] Katy Manzanares MD, [facility] CPT-4: 05040 12/07/2015 ([id number]) 27745 EST. P ATIENT, LEVEL IV Diagnosis: Essential (primary) hypertension[ICD10: I10] Diagnosis: Generalized anxiety disorder[ICD10: F41.1] Diagnosis: Other obesity due to excess calories[ICD10: E66.09] Katy Manzanares MD, [facility] CPT-4: 98006 11/09/2015 ([id number]) 07374 EST. P ATIENT, LEVEL III Diagnosis: Urinary tract infection, site not specified[ICD10: N39.0] Katy Manzanares MD, [facility] CPT-4: 27466 08/17/2015 ([id number]) 12672 EST. P ATIENT, LEVEL III Diagnosis: Generalized anxiety disorder[ICD10: F41.1] Diagnosis: Major depressive disorder, recurrent, moderate[ICD10: F33.1] Katy Manzanares MD, [facility] CPT-4: 08286 07/24/2015 ([id number]) 40524 EST. P ATIENT, LEVEL IV Diagnosis: Myalgia[ICD10: M79.1] Diagnosis: Low back pain[ICD10: M54.5] Diagnosis: Cervicalgia[ICD10: M54.2] Diagnosis: Essential (primary) hypertension[ICD10: I10] Diagnosis: Vitamin D deficiency, unspecified[ICD10: E55.9] Diagnosis: Generalized anxiety disorder[ICD10: F41.1] Katy Manzanares MD, [facility] CPT-4: 35331 07/16/2015 ([id number]) 05534 EST. P ATIENT, LEVEL IV Diagnosis: Cervicalgia[ICD10: M54.2] Diagnosis: Essential (primary) hypertension[ICD10: I10] Diagnosis: Low back pain[ICD10: M54.5] Diagnosis: Radiculopathy, cervical region[ICD10: M54.12] Katy Manzanares MD, [facility] CPT-4: 63555 06/12/2015 85485 EST. PATIENT, LEVEL III Diagnosis: Sacroiliitis, not elsewhere classified[ICD10: M46.1] Diagnosis: Low back pain[ICD10: M54.5] Diagnosis: Pain in left hip[ICD10: M25.552] Diagnosis: Pain in right hip[ICD10: M25.551] Samantha Manzanares MD, [facility] CPT-4: 61392 03/08/2015 [id number] EST. PATIENT, LEVEL III Diagnosis: Anxiety disorder due to known physiological condition[ICD10: F06.4] Diagnosis: Mood disorder due to known physiological condition with depressive features[ICD10: F06.31] Diagnosis: Flushing[ICD10: R23.2] Samantha Manzanares MD, [facility] CPT-4: 46189 12/29/2014 ([id number]) 51195 EST. P ATIENT, LEVEL IV Diagnosis: ESSENTIAL HYPERTENSION[ICD9: 401.9] Diagnosis: Anxiety[ICD9: 300.00] Diagnosis: Depression[ICD9: 311] Katy Manzanares MD, [facility] CPT-4: 97903 11/17/2014 ([id number]) 96339 EST. P ATIENT, LEVEL IV Diagnosis: Anxiety[ICD9: 300.00] Diagnosis: Depression[ICD9: 311] Diagnosis: DIABETES TYPE II[ICD9: 250.00] Diagnosis: Vitamin D deficiency[ICD9: 268.9] Diagnosis: ESSENTIAL HYPERTENSION[ICD9: 401.9] Diagnosis: ABNORMAL WEIGHT GAIN[ICD9: 783.1] Katy Manzanares MD, [facility] CPT- 4: 81464 05/16/2014 ([id number]) 11576 EST. P ATIENT, LEVEL IV Diagnosis: ESSENTIAL HYPERTENSION[ICD9: 401.9] Diagnosis: Anxiety[ICD9: 300.00] Diagnosis: Depression[ICD9: 311] Katy Manzanares MD, [facility] CPT-4: 56996 04/04/2014 ([id number]) 28196 EST. P ATIENT, LEVEL IV Diagnosis: Diarrhea[ICD9: 787.91] Diagnosis: Epigastric pain[ICD9: 789.06] Diagnosis: ESOPHAGEAL REFLUX[ICD9: 530.81] Diagnosis: Blood in stool[ICD9: 578.1] Katy Manzanares MD, [facility] CPT- 4: 13502 12/01/2013 ([id number]) 29508 EST. P ATIENT, LEVEL IV Diagnosis: Vitamin D deficiency[ICD9: 268.9] Diagnosis: DIABETES TYPE II[ICD9: 250.00] Diagnosis: Depression[ICD9: 311] Diagnosis: Insomnia[ICD9: 780.52] Ally Manzanares MD, [facility] CPT-4: 93465 10/10/2013 ([id number]) PREV VISIT E ST AGE 40-64 Diagnosis: Well woman exam with routine gynecological exam[ICD9: V72.31] Diagnosis: JOINT PAIN-UNSPEC[ICD9: 719.40] Diagnosis: Nasal septal ulcer[ICD9: 478.19] Diagnosis: Swelling of extremity[ICD9: 729.81] Diagnosis: Pleuritic chest pain[ICD9: 786.52] Katy Manzanares MD, [facility] CPT-4: 61761 09/15/2013 ([id number]) 62677 EST. P ATIENT, LEVEL IV Diagnosis: DM W/O COMPLICATION TYPE II, UNCONTROLLED[SNOMED: 58900673] Diagnosis: Urinary tract infection[ICD9: 599.0] Diagnosis: DEPRESSIVE DISORDER NEC[ICD9: 311] Diagnosis: Anxiety[ICD9: 300.00] Diagnosis: Insomnia[ICD9: 780.52] Diagnosis: ANEMIA[ICD9: 285.9] Katy Manzanares MD, [facility] CPT-4: 86575 08/16/2013 ([id number]) 91670 EST. P ATIENT, LEVEL III Diagnosis: DM w/o complication type II, uncontrolled[SNOMED: 25963275] Ally Manzanares MD, [facility] CPT-4: 99125 06/06/2013 ([id number]) 30036 EST. P ATIENT, LEVEL III Diagnosis: DIABETES TYPE II[SNOMED: 167570999] [facility] CPT- 4: 09036 04/26/2013 ([id number]) OFFICE VISI T, NEW - LEVEL 4 Diagnosis: Elevated blood pressure[ICD9: 796.2] Diagnosis: Depression[ICD9: 311] Diagnosis: Elevated alkaline phosphatase level[ICD9: 790.5] Diagnosis: Elevated glucose[ICD9: 790.29] [facility] CPT-4: 56524 04/14/2013 Plan of Care Planned Activity Notes C odes Status Date Visit Plan: Cellulitis - start oral antibiotics as directed, return to clinic for wound check, call for acute change in symptoms, worsening redness, warmth, discharge. 04/20/2018 Patient Education: Patient Medication Summary Completed 04/20/2018 Visit Plan: Erythema of labia- dysu vonda -UA negative-yeast infection vs vulvar lichen sclerosis -rx sent to patient's pharmacy and instructed on use -call if symptoms do not resolve of if any worse. Patient verbalized understanding of plan. 11/02/2017 Appointment: Katy Do WPtel: [address] [place], [place] [phone] (15 min) Moderate 11/02/2017 Patient Education: Patient [...] current medications. 10/13/2017 Appointment: Katy Do WPtel: [phone] (30 min) Complex 10/13/2017 Patient Education: Patient Medication Summary Completed 10/13/2017 Appointment: Katy Do WPtel: [phone] (15 min) Moderate 08/20/2017 Visit Plan: Hypertension - well con trolled but bystolic is not covered-will switch to metoprolol- continue other medications, continue with no added salt diet. Pt has been encouraged to exercise daily. The pt has been advised to call the office if there are any acute concerns about change in blood pressure readings at home. 07/20/2017 Appointment: Katy Do WPtel: [phone] (15 min) Moderate 07/20/2017 Patient Education: Patient Medication Summary Completed 07/20/2017 Appointment: Katy Do WPtel: [phone] (15 min) Moderate 07/14/2017 Visit Plan: Hypertension [...] iron supplement 05/12/2017 Appointment: Katy Do WPtel: [phone] (30 min) Complex 05/12/2017 Patient Education: Patient Medication Summary Completed 05/12/2017 Patient Education: Patient Medication Summary Completed 05/12/2017 Care Plan: SCREENINGMAMMOGRAPHYDIGITAL [facility] : 17829-8 Pending 05/12/2017 Appointment: Lab Draw 12/08/2016 Patient [...] tick panel 12/01/2016 Appointment: Katy Do WPtel: [phone] (30 min) Complex 12/01/2016 Patient Education: Patient Medication Summary Completed 12/01/2016 Patient Education: Obesity Completed 12/01/2016 Care Plan: Lymes Disease Antibobies Igg/ Igm Pending 12/01/2016 Visit Plan: Elevated glucose-check Hgb A1C Low back pain-will write letter on patient's behalf for insurance precertification Gbihkzt-betdzfqcxy-zplw controlled-no changes 08/05/2016 Appointment: Katy Do WPtel: [phone] (30 min) Complex 08/05/2016 Patient Education: Patient [...] next month. 07/22/2016 Appointment: [facility] Do WPtel[phone] (15 min) Moderate 07/22/2016 Patient Education: [...] murmur-schedule Echo 03/06/2016 Appointment: Katy Do WPtel: [address] [place], [place] [phone] (30 min) Complex 03/06/2016 Patient Education: Patient [...] current medications. 12/07/2015 Appointment: Katy Do WPtel: [phone] (30 min) Complex 12/07/2015 Patient Education: [...] weight check. 11/09/2015 Appointment: Katy Do WPtel: [facility] (30 min) Complex 11/09/2015 Patient Education: Patient Medication Summary Completed 11/09/2015 Patient Education: Obesity Completed 11/09/2015 Care Plan: BMI Above normal followup LOLI F-MGMT EDUC & TRAIN 1 PT Pending 11/09/2015 Appointment: Katy Do WPtel: [phone] (30 min) Complex 11/08/2015 Appointment: Katy Do WPtel: [phone] [phone] (15 min) Moderate 08/23/2015 Visit Plan: Urinary [...] D level 07/24/2015 Appointment: Katy Do WPtel[phone] (30 min) Complex 07/24/2015 Patient Education: [...] in blood pressure readings at home. Neck gunx-ftjudlrauemyp-vbeyt to Dr Mckee for evaluation-patient has been [...] Moderate 09/04/2014 Appointment: Katy Do WPtel: [address] [phone] [place] [address] Follow up 07/07/2014 Visit Plan: Anxiety and [...] Completed 05/16/2014 Appointment: Katy Do WPtel: [phone] [phone] Follow up 05/09/2014 Visit Plan: Hypertension - [...] this patient. 04/04/2014 Appointment: Hi Katy WPtel: [phone] Follow up 04/04/2014 Patient Education: Patient [...] 12/01/2013 Care Plan: Referral Order SNOMED-CT : [id number] Ordered 12/01/2013 Visit Plan: Diabetes Mellitus - [...] for insomnia. 10/10/2013 Appointment: Ally Manzanares WPtel: [facility]5 [phone] Follow up 10/10/2013 Patient Education: Patient Medication Summary Completed 10/10/2013 Appointment: GranbyAlly kaur WPtel: [address] [place], [place] [phone] Lab Draw 10/06/2013 Patient Education: Patient Medication Summary Completed 10/06/2013 Appointment: Ally Manzanares WPtel: [address] [place], [place] [phone] Follow up 10/04/2013 Visit Plan: Well Adult [...] or prn. Joint pain-pleuritic chest pain-swelling of lqzf-egcgmqu-pqmntlg for autoimmune disease such as lupus-plan to check labs and proceed as indicated. Instructed patient we will call her with results of labs. 09/15/2013 Appointment: Katy Do WPtel: [phone] [facility] Pap Only 09/15/2013 Patient Education: [...] iron panel 08/16/2013 Appointment: Katy Do WPtel: [facility]5 [phone] Follow up 08/16/2013 Patient Education: Patient Medication Summary Completed 08/16/2013 Care Plan: C URINE RT Pending 08/16/2013 Appointment: Katy Do WPtel: [facility]5 [phone] Follow up 08/09/2013 Appointment: Ally Manzanares WPtel: [facility]5 [facility] Follow up 08/08/2013 Visit Plan: Diabetes Mellitus [...] glucose control. 06/06/2013 Appointment: Ally Manzanares WPtel: [address] [place], [place] [phone] Follow up 06/06/2013 Patient Education: Patient Medication Summary Completed 06/06/2013 Appointment: [facility]anares [facility]Ptel[facility] Follow up 05/12/2013 Visit Plan: Diabetes Mellitus [...] control. 04/26/2013 Appointment: [phone] Diabetic education 04/26/2013 Patient Education: Patient [...] and hgba1c. 04/14/2013 Appointment: Ally Manzanares WPtel: [facility]4 [facility] New Patient 04/14/2013 Patient Education: Patient Medication Summary Completed 04/14/2013 Appointment: Ally Manzanares WPtel: [phone] [facility] New Patient 04/05/2013 Referral: Dr Trujillo [...] pills daily keep metformin at current dose. lemon picker RX for vitamin D 98089 units weekly. . Diabetes Mellitus - controlled [...] or prn. Joint pain-pleuritic chest pain-swelling of zxkv-rtjmlgq-bivwjht for autoimmune disease such as lupus-plan to [...] glucose control. HOLD METFORMIN X 1 W EKWOK RESTART PANTOPRAZOLE DAILY CONTINUE CARAFATE BEFORE MEALS [...] pt is to call for acute concerns. [phone] Samuels and call Sandee to lemon picker a copy . Elevated glucose-check Hgb A1C Low back pain-will write letter on patient's behalf for insurance precertification Qhbsync-nfoybktmpt-nfuy controlled-no changes . Hypertension - wel l controlled - continue with current medications, continue with no added salt diet. Pt has been encouraged to exercise daily. The pt has been advised to call the office if there are any acute concerns about change in blood pressure readings at home. Neck mhpe-dtynznanpfwsg-axldv to Dr Mckee for evaluation-patient has been [...]
--- OUTSIDE RECORDS SUMMARY | 2019-03-04 02:57 | XMS REPORT | CCD ---
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[employer], [employer]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 09/15/2013 Marital status Unknown M arried 04/14/[address]: [id number] Never smoker 04/14/2013 Alcohol history Unknown occasionally [...] DS 800 mg-16 0 mg tablet RxNorm: 788769 1 Tablet(s) PO BID 04/20/2018 04/26/2018 Active mupirocin 2 % topica l ointment RxNorm: 990599 1 Application TOP BID 04/20/2018 04/29/2018 Active Diflucan 150 mg tablet RxNorm: 842709 1 Tablet(s) PO daily 11/02/2017 11/08/2017 Inactive Wellbutrin XL 300 mg 24 hr tablet, extended release RxNorm: 969672 TAKE 1 TABLET BY MOUTH ONCE DAILY 09/07/2017 No Stop Date Active metoprolol succinate ER 50 mg tablet,extended release 24 hr RxNorm: 207504 1 Tablet(s) PO daily 07/20/2017 01/15/2018 Inactive amitriptyline 25 mg tablet RxNorm: 365032 Tablet(s) 2 TAB(S) PO HS 07/09/2017 10/06/2017 Inactive Bystolic 5 mg tablet RxNorm: 868032 1 Tablet(s) PO daily 06/09/2017 07/08/2017 Inactive Vitamin D2 50,000 un it capsule RxNorm: 561874 1 Capsule(s) PO QW 05/12/2017 08/09/2017 Inactive metformin 500 mg tablet RxNorm: 649776 1/2 Tablet(s) PO QPM 05/12/2017 11/07/2017 Inactive metformin 500 mg tablet RxNorm: 516308 1/2 Tablet(s) PO QPM 05/12/2017 05/11/2017 Inactive lisinopril 20 mg-hyd rochlorothiazide 12.5 mg tablet RxNorm: 643887 1 TABLET(S) PO DAILY 04/23/2017 10/19/2017 Inactive Wellbutrin XL 300 mg 24 hr tablet, extended release RxNorm: 422729 1 Tablet(s) PO daily 1 TABLET(S) PO DAILY 12/01/2016 05/29/2017 Inactive Wellbutrin XL 150 mg 24 hr tablet, extended release RxNorm: 285334 1 TABLET(S) PO DAILY 10/07/2016 11/30/2016 Inactive amitriptyline 25 mg tablet RxNorm: 739246 2 TAB(S) PO HS,INSTR: FOR PAIN AND SLEEP 09/24/2016 07/08/2017 In active amitriptyline 25 mg tablet RxNorm: 820866 2 Tablet(s) PO QHS 09/23/2016 09/23/2016 Inactive meloxicam 15 mg tablet RxNorm: 055227 1 TABLET(S) PO DAILY 09/08/2016 12/06/[address] on hold until pt needs it: she is going to take (2) 7.5mg until gone cetirizine 10 mg tablet RxNorm: 2807358 1 Tablet(s) PO daily 07/22/2016 No Stop Date Active lisinopril 20 mg-hyd rochlorothiazide 12.5 mg tablet RxNorm: 663843 1 TABLET(S) PO DAILY 06/20/2016 12/16/2016 Inactive Wellbutrin XL 150 mg 24 hr tablet, extended release RxNorm: 747189 1 TABLET(S) PO DAILY 05/12/2016 08/09/2016 Inactive Victoza 3-Jean 0.6 mg /0.1 mL (18 mg/3 mL) subcutaneous pen injector RxNorm: 500971 0.6 Milligram(s) SQ daily 03/21/2016 07/21/2016 Inactive NovoFine Plus 32 gau ge x /6" needle RxNorm: 1 Miscellaneous daily 03/21/2016 07/21/2016 Inactive NovoFine Plus 32 gau ge x /6" needle RxNorm: 1 Miscellaneous daily 03/21/2016 03/20/2016 Inactive Victoza 3-Jean 0.6 mg /0.1 mL (18 mg/3 mL) subcutaneous pen injector RxNorm: 424343 0.6 Milligram(s) SQ daily 03/21/2016 03/20/2016 Inactive Vitamin D2 50,000 un it capsule RxNorm: 682803 1 Capsule(s) PO QW 03/20/2016 06/17/2016 Inactive meloxicam 15 mg tablet RxNorm: 039946 1 Tablet(s) PO daily 03/20/2016 07/17/[address] on hold until pt needs it: she is going to take (2) 7.5mg until gone lisinopril 20 mg-hyd rochlorothiazide 12.5 mg tablet RxNorm: 095565 1 TABLET(S) PO DAILY 02/19/2016 05/18/2016 Inactive Wellbutrin XL 150 mg 24 hr tablet, extended release RxNorm: 328235 1 Tablet(s) PO daily 11/09/2015 03/07/2016 Inactive gabapentin 800 mg ta blet RxNorm: 115546 1 Tablet(s) PO TID 11/09/2015 06/08/2017 Inactive Lexapro 10 mg tablet RxNorm: 176667 1 TABLET(S) PO QPM 11/05/2015 11/08/2015 Inactive lisinopril 20 mg-hyd rochlorothiazide 12.5 mg tablet RxNorm: 211498 1 TABLET(S) PO DAILY 10/18/2015 01/15/2016 Inactive Cipro 500 mg tablet RxNorm: 976078 1 Tablet(s) PO BID 08/17/2015 08/23/2015 Inactive Lexapro 10 mg tablet RxNorm: 928511 1 Tablet(s) PO QPM 07/24/2015 10/21/2015 Inactive Vitamin D2 50,000 un it capsule RxNorm: 236896 1 Capsule(s) PO QW 07/24/2015 10/21/2015 Inactive gabapentin 300 mg ca psule RxNorm: 799986 2 Capsule(s) PO TID 07/16/2015 11/08/2015 Inactive lisinopril 20 mg-hyd rochlorothiazide 12.5 mg tablet RxNorm: 231595 1 TABLET(S) PO DAILY 04/09/2015 07/07/2015 Inactive naproxen 250 mg tablet RxNorm: 739258 1-2 Tablet(s) PO BID as needed for pain 03/08/2015 No Stop Date Active Fetzima 40 mg capsul e,extended release RxNorm: 1934663 1 Capsule(s) PO adri y 12/22/2014 12/21/2014 In active Fetzima 40 mg capsul e,extended release RxNorm: 2867085 1 Capsule(s) PO adri y 12/22/2014 06/11/2015 In active Xanax 0.5 mg tablet RxNorm: 853512 1 Tablet(s) TAKE 1 TABLET BY MOUTH TWICE DAILY NEEDED FOR ANXIETY 11/17/2014 01/15/2015 Inactive lisinopril 20 mg-hyd rochlorothiazide 12.5 mg tablet RxNorm: 258102 1 Tablet(s) PO daily 11/17/2014 03/16/2015 Inactive Fetzima 20 mg capsul e,extended release RxNorm: 5012958 1 Capsule(s) PO adri y 11/17/2014 12/22/2014 In active Xanax 0.5 mg tablet RxNorm: 549787 1 Tablet(s) TAKE 1 TABLET BY MOUTH TWICE DAILY NEEDED FOR ANXIETY 10/27/2014 11/16/2014 Inactive Xanax 0.5 mg tablet RxNorm: 986870 TAKE 1 TABLET BY MOUTH TWICE DAILY NE EDED FOR ANXIETY 08/25/2014 10/23/2014 Inactive Brintellix 10 mg tablet RxNorm: 0881014 1 Tablet(s) PO daily 07/04/2014 07/03/2014 Inactive Brintellix 10 mg tablet RxNorm: 5137413 1 Tablet(s) PO daily 07/04/2014 11/16/2014 Inactive Brintellix 10 mg tablet RxNorm: 6736618 1 Tablet(s) PO daily 06/09/2014 07/03/2014 Inactive Contrave 8 mg-90 mg tablet,extended release RxNorm: 2314129 2 Tablet(s) PO BID 06/09/2014 09/06/2014 In active 1 tab q am x 1 week, then 1 tab BID x 1 week, then 2 q am and 1 q pm x 1 week then 2 tabs BID thereafter Contrave 8 mg-90 mg tablet,extended release RxNorm: 4617641 2 Tablet(s) PO BID 06/09/2014 06/08/2014 In active 1 tab q am x 1 week, then 1 tab BID x 1 week, then 2 q am and 1 q pm x 1 week then 2 tabs BID thereafter metformin 500 mg tablet RxNorm: 240647 1/2 Tablet(s) PO BID 05/18/2014 09/14/2014 Inactive Brintellix 10 mg tablet RxNorm: 8716912 2 Tablet(s) PO daily 05/16/2014 06/08/2014 Inactive Xanax 0.5 mg tablet RxNorm: 570317 1 Tablet(s) PO BID PRN 04/06/2014 08/25/2014 Inactive Wellbutrin XL 150 mg 24 hr tablet, extended release RxNorm: 617045 1 Tablet(s) PO daily 04/04/2014 05/15/2014 Inactive [SAVINGS FOR UNINSURED PATIENTS -- BIN:0 24429, PCN: [id number], Group: [id number], ID# [id number], Process claim through [employer], for questions: . THIS IS NOT INSURANCE.] pantoprazole 40 mg t ablet,delayed release RxNorm: 081316 1 Tablet(s) PO daily 12/01/2013 03/30/2014 In active Vitamin D3 2,000 uni t tablet RxNorm: 248377 1 Tablet(s) PO daily 10/10/2013 No Stop Date Active Vitamin D2 50,000 un it capsule RxNorm: 349469 1 Capsule(s) PO QW 10/10/2013 11/16/2014 Inactive vitamin d 50,000 units weekly x 12 weeks then 5000 units daily thereafter escitalopram 20 mg t ablet RxNorm: 001749 1 Tablet(s) PO daily 10/10/2013 04/04/2014 Inactive trazodone 100 mg tablet RxNorm: 624984 1 TABLET(S) PO QHS 09/19/2013 01/16/2014 Inactive trazodone 100 mg tablet RxNorm: 672858 1 Tablet(s) PO QHS 08/16/2013 09/14/2013 Inactive metformin 500 mg tablet RxNorm: 488643 1 Tablet(s) PO BID 08/16/2013 04/03/2014 Inactive Diflucan 150 mg tablet RxNorm: 654564 1 Tablet(s) PO daily 08/16/2013 08/22/2013 Inactive metformin 500 mg tablet RxNorm: 447384 1/2 Tablet(s) PO BID 1/2 tab in the even ing x 1 week then 1/2 tab twice daily 04/26/2013 08/15/2013 Inactive Vitamin D2 50,000 un it capsule RxNorm: 767469 1 Capsule(s) PO QW 04/21/2013 10/09/2013 Inactive vitamin d 50,000 units weekly x 12 weeks then 5000 units daily thereafter Lexapro 10 mg tablet RxNorm: 875378 1 Tablet(s) PO daily 04/14/2013 10/09/2013 Inactive Slow Fe oral RxNorm: 01923 oral No Start Date Active tizanidine 2 mg tablet RxNorm: 344637 1 Tablet(s) PO TID No Start Date Active vitamin B complex ca psule RxNorm: 1 Capsule(s) PO daily No Start Date Active diclofenac 75 mg-mis oprostol 200 mcg tablet,immediate,delayed release RxNorm: 5700311 1 Tablet(s) PO BID No Start Date Active methocarbamol 500 mg tablet RxNorm: 360077 1 Tablet(s) PO TID No Start Date Active lisinopril 20 mg-hyd rochlorothiazide 12.5 mg tablet RxNorm: 770562 1 Tablet(s) PO daily No Start Date 11/16/2014 Inactive gabapentin 300 mg ca psule RxNorm: 118084 1 Capsule(s) PO TID No Start Date 07/15/2015 Inactive cetirizine 10 mg tablet RxNorm: 5042381 1 Tablet(s) PO daily No Start Date 03/05/2016 Inactive Vitamin D2 50,000 un it capsule RxNorm: 354232 1 Capsule(s) PO QW No Start Date 04/20/2013 Inactive pantoprazole 40 mg t ablet,delayed release RxNorm: 270976 1 Tablet(s) PO daily No Start Date 10/09/2013 Inactive amitriptyline 10 mg tablet RxNorm: 880153 1 Tablet(s) PO QHS No Start Date 09/22/2016 Inactive meloxicam 7.5 mg tablet RxNorm: 485808 1 Tablet(s) PO daily No Start Date 03/19/2016 Inactive ibuprofen 200 mg tablet RxNorm: 906931 3 Tablet(s) PO TID No Start Date 11/30/2013 Inactive Advair Diskus 250 mc g-50 mcg/dose powder for inhalation RxNorm: 9399125 2 INH daily No Start Date 07/23/2015 [...] 10/10/2013 Laboratory exam ordered as part of [facility] general medical examination ICD-9: V72.62 10/06/2013 Swelling of extremity ICD-9: 729.81 09/15/2013 JOINT PAIN-UNSPEC ICD-9: 719.40 09/15/2013 Pleuritic chest pain ICD-9: 786.52 09/15/2013 Well woman exam with routine gynecological exam ICD-9: V72.31 09/15/2013 Nasal septal ulcer ICD-9: 478.19 09/15/2013 ANEMIA ICD-9: 285.9 08/07 DM W/O COMPLICATION TYPE II, UNCONTROLLED SNOMED: 31748717 ICD-9: 250.02 08/16/2013 Urinary tract infection ICD-9: [...] 24.3 pg 10/13/2017 Cbc With Differential Ord2 Kidder% 10.1 % 10/13/2017 Cbc With Differential Ord2 [...] 1.71 K/ul 10/13/2017 Cbc With Differential Ord2 Kidder ABS# 0.7 K/ul 10/13/2017 Cbc With Differential Ord2 Eos ABS# 0.1 K/ul 10/13/2017 Cbc With Differential Ord2 Baso ABS# 0.0 K/ul 10/13/2017 %Hba1C Tfy979 % HbA1c 13052-8 6.3 % 10/13/2017 %Hba1C Wvf090 Gluc Ave 134 mg/dL 10/13/2017 Comp Metabolic Wsd416 NA 144 mEq/L 10/13/2017 Comp Metabolic Vsm142 K 4.2 mEq/L 10/13/2017 Comp Metabolic Rjq457 CL 110 mEq/L 10/13/2017 Comp Metabolic Ahk485 CO2 25.0 mEq/L 10/13/2017 Comp Metabolic Dtc238 AN ION GAP 13 10/13/2017 Comp Metabolic Tvz671 GL UCOSE 99 mg/dL 10/13/2017 Comp Metabolic Rjx964 Cr eat 0.6 mg/dL 10/13/2017 Comp Metabolic Eet072 eG FR 116 ml/min/1.73m2 09/2017 Comp Metabolic Zmb337 BUN 11 mg/dL 10/13/2017 Comp Metabolic Rke071 B/ C Ratio 19.0 Ratio 10/13/2017 Comp Metabolic Qgt224 CA LCIUM 9.1 mg/dL 10/13/2017 Comp Metabolic Zsh655 AL K PHOS 134 U/L 10/13/2017 Comp Metabolic Ucq283 T(SGOT) 18 U/L 10/13/2017 Comp Metabolic Rxf339 AL T(SGPT) 17 U/L 10/13/2017 Comp Metabolic Wcl178 BI LI T 0.4 mg/dL 10/13/2017 Comp Metabolic Rwg347 AL BUMIN 4.0 g/dL 10/13/2017 Comp Metabolic Sxn925 TP RO 6.6 g/dL 10/13/2017 Comp Metabolic Tqb992 GL OB 2.6 g/dL 10/13/2017 Comp Metabolic Uta949 A/ G Ratio 1.5 Ratio 10/13/2017 Comp Metabolic Psb614 Os mo 286 mOsmo 10/13/2017 Vitamin D 25 Oh Yhz7165 VITAMIN D, 25 HYDROXY 55.13 ng/mL 10/13/2017 I Fecal Occult Blood Yup0191 IFOB Negative 05/13/2017 B12 Ojf297 B12 427.00 pg/ml 05/12/2017 Tibc Ord40 Iron 35 ug/dl 05/12/2017 Tibc Ord40 UIBC 412 ug/dL 05/12/2017 Tibc Ord40 TIBC 447 ug/dL 05/12/2017 Tibc Ord40 Fe-%Sat 7.8 % 05/12/2017 Ferritin Ord22 FERRITIN 7.2 ng/mL 05/12/2017 Comp Metabolic Llh946 NA 142 mEq/L 05/12/2017 Comp Metabolic Mtq341 K 4.0 mEq/L 05/12/2017 Comp Metabolic Aza062 CL 106 mEq/L 05/12/2017 Comp Metabolic Bki346 CO2 26.0 mEq/L 05/12/2017 Comp Metabolic Oyc208 AN ION GAP 14 05/12/2017 Comp Metabolic Cha493 GL UCOSE 137 mg/dL 05/12/2017 Comp Metabolic Aud257 Cr eat 0.6 mg/dL 05/12/2017 Comp Metabolic Hpf195 eG FR 116 ml/min/1.73m2 08/2017 Comp Metabolic Kkn823 BUN 9 mg/dL 05/12/2017 Comp Metabolic Rch029 B/ C Ratio 15.5 Ratio 05/12/2017 Comp Metabolic Zlz559 CA LCIUM 8.8 mg/dL 05/12/2017 Comp Metabolic Mfc419 AL K PHOS 171 U/L 05/12/2017 Comp Metabolic Ewf159 T(SGOT) 18 U/L 05/12/2017 Comp Metabolic Cmb176 AL T(SGPT) 17 U/L 05/12/2017 Comp Metabolic Tqi978 BI LI T 0.2 mg/dL 05/12/2017 Comp Metabolic Wmi370 AL BUMIN 3.9 g/dL 05/12/2017 Comp Metabolic Gmn183 TP RO 6.5 g/dL 05/12/2017 Comp Metabolic Tlj227 GL OB 2.6 g/dL 05/12/2017 Comp Metabolic Tho436 A/ G Ratio 1.5 Ratio 05/12/2017 Comp Metabolic Bqi802 Os mo 284 mOsmo 05/12/2017 Iron Ord72 Iron 33 ug/dl 05/12/2017 Vitamin D 25 Oh Luz5218 VITAMIN D, 25 HYDROXY 31.02 ng/mL 05/12/2017 [...] 22.7 % 05/12/2017 Cbc With Differential Ord2 Kidder% 8.1 % 05/12/2017 Cbc With Differential Ord2 [...] 1.54 K/ul 05/12/2017 Cbc With Differential Ord2 Kidder ABS# 0.6 K/ul 05/12/2017 Cbc With Differential Ord2 Eos ABS# 0.2 K/ul 05/12/2017 Cbc With Differential Ord2 Baso ABS# 0.0 K/ul 05/12/2017 %Hba1C Uzn835 % HbA1c 24323-7 6.6 % 05/12/2017 %Hba1C Kby110 Gluc Ave 143 mg/dL 05/12/2017 Tsh Ord6 TSH (3rd IS) 3.18 uIU/mL 05/12/2017 Lymes Disease Total Antibodies With Western Blot Refle x [id number] B. BURGDORFERI, IGG/IGM 0.048 12/08/2016 Lymes Disease Total Antibodies With Western Blot Refle x [id number] 12/08/2016 Alena Reflex Profile [id number] ALENA (VENTURA) SCREEN NONE DETECTED 017 Ehrlichia Chaffeensis Antibody Igm 084984 EHRLICHIA CHAFFEENSIS IGM < 1:16 12/05/2016 Randolph Spotted Fever Igg/Igm 37883 3 GUME TN SPOTTED FEVER IGM EIA . 12/05/2016 Randolph Spotted Fever Igg/Igm 11096 3 RMSF, IGM 0.43 index 12/05/2016 Randolph Spotted Fever Igg/Igm 05788 3 GUME MT SPOTTED FEVER IGG EIA FLEX . 12/05/2016 Randolph Spotted Fever Igg/Igm 16170 3 RMSF, IGG SCREEN-FLEX Negative 12/05/2016 Ehrlichia Chaffeensis Antibody Igg 782272 EHRLICHIA CHAFFEENSIS IGG <1:64 12/05/2016 Tibc Ord40 Iron 37 ug/dl 12/02/2016 Tibc Ord40 UIBC 372 ug/dL 12/02/2016 Tibc Ord40 TIBC 409 ug/dL 12/02/2016 Tibc Ord40 Fe-%Sat 9.0 % 12/02/2016 Ferritin Ord22 FERRITIN 13.9 ng/mL 12/02/2016 B12 Krk335 B12 344.00 pg/ml 12/02/2016 %Hba1C Dho250 % HbA1c 50972-8 6.1 % 12/01/2016 %Hba1C Khk802 Gluc Ave 128 mg/dL 12/01/2016 Cbc With [...] 26.2 pg 12/01/2016 Cbc With Differential Ord2 Kidder% 8.8 % 12/01/2016 Cbc With Differential Ord2 [...] 1.75 K/ul 12/01/2016 Cbc With Differential Ord2 Kidder ABS# 0.6 K/ul 12/01/2016 Cbc With Differential Ord2 Eos ABS# 0.4 K/ul 12/01/2016 Cbc With Differential Ord2 Baso ABS# 0.1 K/ul 12/01/2016 Tsh Ord6 hTSH II 1.80 uIU/mL 12/01/2016 C-Reactive Protein Qnt Crqnt CRP 1.5 mg/dl 12/01/2016 Sed Rate Ord21 ESR 14 mm/hr 12/01/2016 Ra Factor Hzi934 RA FACT OR <10 IU/ml 12/01/2016 Vitamin D 25 Oh Ske5356 VITAMIN D, 25 HYDROXY 30.98 ng/mL 12/01/2016 Comp Metabolic Jvd736 NA 140 mEq/L 12/01/2016 Comp Metabolic Wcq240 K 3.9 mEq/L 12/01/2016 Comp Metabolic Xti775 CL 106 mEq/L 12/01/2016 Comp Metabolic Hbs154 CO2 26.0 mEq/L 12/01/2016 Comp Metabolic Nkb474 AN ION GAP 12 12/01/2016 Comp Metabolic Ohq853 GL UCOSE 147 mg/dL 12/01/2016 Comp Metabolic Gjf078 Cr eat 0.6 mg/dL 12/01/2016 Comp Metabolic See817 eG FR 114 ml/min/1.73m2 11/08 Comp Metabolic Qxc613 BUN 11 mg/dL 12/01/2016 Comp Metabolic Hkz823 B/ C Ratio 18.6 Ratio 12/01/2016 Comp Metabolic Wph684 CA LCIUM 8.8 mg/dL 12/01/2016 Comp Metabolic Pfa056 AL K PHOS 138 U/L 12/01/2016 Comp Metabolic Zun770 T(SGOT) 34 U/L 12/01/2016 Comp Metabolic Egz947 AL T(SGPT) 26 U/L 12/01/2016 Comp Metabolic Ipy600 BI LI T 0.3 mg/dL 12/01/2016 Comp Metabolic Qbn002 AL BUMIN 3.8 g/dL 12/01/2016 Comp Metabolic Hjb170 TP RO 6.2 g/dL 12/01/2016 Comp Metabolic Lrw323 GL OB 2.4 g/dL 12/01/2016 Comp Metabolic Oot959 A/ G Ratio 1.6 Ratio 12/01/2016 Comp Metabolic Ddn989 Os mo 281 mOsmo 12/01/2016 %Hba1C Xsd733 % HbA1c 91375-1 6.3 % 08/05/2016 %Hba1C Pyr586 Gluc Ave 134 mg/dL 08/05/2016 Alena [id number] ALENA (VENTURA) Joshua CHADWICK NONE DETECTED 017 Vitamin D 25 Oh Eqw5336 VITAMIN D, 25 HYDROXY 32.26 ng/mL 03/07/2016 Ra Factor Iyg874 RA FACT OR <10 IU/ml 03/07/2016 C-Reactive Protein Qnt Crqnt CRP 2.0 mg/dl 03/06/2016 Sed Rate Ord21 ESR 32 mm/hr 03/06/2016 %Hba1C Fvi599 % HbA1c 16978-3 6.3 % 03/06/2016 %Hba1C Qty014 Gluc Ave 134 mg/dL 03/06/2016 Comp Metabolic Tyh543 NA 138 mEq/L 03/06/2016 Comp Metabolic Mqe873 K 4.3 mEq/L 03/06/2016 Comp Metabolic Iqy450 CL 103 mEq/L 03/06/2016 Comp Metabolic Lkr241 CO2 23.0 mEq/L 03/06/2016 Comp Metabolic Ppe586 AN ION GAP 16 03/06/2016 Comp Metabolic Mnb330 GL UCOSE 148 mg/dL 03/06/2016 Comp Metabolic Ahy467 Cr eat 0.6 mg/dL 03/06/2016 Comp Metabolic Fds380 eG FR 104 ml/min/1.73m2 02/07 Comp Metabolic Brk938 BUN 13 mg/dL 03/06/2016 Comp Metabolic Yzg216 B/ C Ratio 20.3 Ratio 03/06/2016 Comp Metabolic Guj200 CA LCIUM 9.7 mg/dL 03/06/2016 Comp Metabolic Uro167 AL K PHOS 146 U/L 03/06/2016 Comp Metabolic Uox091 T(SGOT) 25 U/L 03/06/2016 Comp Metabolic Slr181 AL T(SGPT) 25 U/L 03/06/2016 Comp Metabolic Zmq210 BI LI T 0.3 mg/dL 03/06/2016 Comp Metabolic Icf370 AL BUMIN 4.1 g/dL 03/06/2016 Comp Metabolic Xkt560 TP RO 6.9 g/dL 03/06/2016 Comp Metabolic Gdf686 GL OB 2.8 g/dL 03/06/2016 Comp Metabolic Pmi656 A/ G Ratio 1.5 Ratio 03/06/2016 Comp Metabolic Iow105 Os mo 279 mOsmo 03/06/2016 Cbc With [...] 27.1 pg 03/06/2016 Cbc With Differential Ord2 Kidder% 9.2 % 03/06/2016 Cbc With Differential Ord2 [...] 1.35 K/ul 03/06/2016 Cbc With Differential Ord2 Kidder ABS# 0.5 K/ul 03/06/2016 Cbc With Differential Ord2 Eos ABS# 0.2 K/ul 03/06/2016 Cbc With Differential Ord2 Baso ABS# 0.1 K/ul 03/06/2016 Tsh Ord6 hTSH II 3.61 uIU/mL 03/06/2016 Culture Urine [id number] URI NE CULTURE SEE NOTES 08/20/2015 Culture Urine [id number] Con tinued Results 08/20/2015 Urine Culture Ucult Comp lete Growth of aerobe sent to ref lab 08/18/2015 Vitamin D 25 Oh Azu9612 VITAMIN D, 25 HYDROXY 24.39 ng/mL 07/18/2015 Comp Metabolic Cda640 NA 136 mEq/L 07/17/2015 Comp Metabolic Tiv719 K 4.0 mEq/L 07/17/2015 Comp Metabolic Zro295 CL 100 mEq/L 07/17/2015 Comp Metabolic Cpm453 CO2 27.0 mEq/L 07/17/2015 Comp Metabolic Fyl459 AN ION GAP 13 07/17/2015 Comp Metabolic Dhs144 GL UCOSE 121 mg/dL 07/17/2015 Comp Metabolic Tqn501 Cr eat 0.7 mg/dL 07/17/2015 Comp Metabolic Wql837 eG FR 96 ml/min/1.73m2 07/16 Comp Metabolic Ixx194 BUN 10 mg/dL 07/17/2015 Comp Metabolic Zoa657 B/ C Ratio 14.5 Ratio 07/17/2015 Comp Metabolic Kgd182 CA LCIUM 8.9 mg/dL 07/17/2015 Comp Metabolic Hri303 AL K PHOS 146 U/L 07/17/2015 Comp Metabolic Day013 T(SGOT) 20 U/L 07/17/2015 Comp Metabolic Pkg458 AL T(SGPT) 22 U/L 07/17/2015 Comp Metabolic Yil187 BI LI T 0.4 mg/dL 07/17/2015 Comp Metabolic Doo368 AL BUMIN 4.0 g/dL 07/17/2015 Comp Metabolic Ylq940 TP RO 6.6 g/dL 07/17/2015 Comp Metabolic Npp244 GL OB 2.6 g/dL 07/17/2015 Comp Metabolic Dml493 A/ G Ratio 1.6 Ratio 07/17/2015 Comp Metabolic Tho050 Os mo 272 mOsmo 07/17/2015 Sed Rate [...] 26.1 pg 07/17/2015 Cbc With Differential Ord2 Kidder% 12.6 % 07/17/2015 Cbc With Differential Ord2 [...] 1.25 K/ul 07/17/2015 Cbc With Differential Ord2 Kidder ABS# 0.9 K/ul 07/17/2015 Cbc With Differential [...] Crqnt CRP 2.9 mg/dl 07/17/2015 GFR CALC 3396635 GFR AA >60 ML/MIN 10/06/2013 GFR CALC 0902877 GFR NON -AA >60 ML/MIN 10/06/2013 CHEM 14 7839013 AST 34 U/L 10/06/2013 CHEM 14 4641065 ALT 30 IU/L 10/06/2013 CHEM 14 2479400 BUN 11 MG/DL 10/06/2013 CHEM 14 1060825 ALBUMIN 4.4 GM/DL 10/06/2013 CHEM 14 3034310 CHLORIDE 107 MMOL/L 10/06/2013 CHEM 14 9148909 BILI TOT 0.4 MG/DL 10/06/2013 CHEM 14 8974790 ALK PHOS 133 U/L 10/06/2013 CHEM 14 2121750 SODIUM 140 MMOL/L 10/06/2013 CHEM 14 5127549 CREATINI NE 0.67 MG/DL 10/06/2013 CHEM 14 2177625 CALCIUM 9.3 MG/DL 10/06/2013 CHEM 14 2502720 POTASSIUM 4.0 MMOL/L 10/06/2013 CHEM 14 8856453 PROT TOT 7.1 GM/DL 10/06/2013 CHEM 14 1097416 GLUCOSE 108 MG/DL 10/06/2013 CHEM 14 9231940 BICARB 25 MMOL/L 10/06/2013 CHEM 14 4303063 ANION GAP 8 MEQ/L 10/06/2013 VIT D TOTL 6646241 VIT D TOTL 37 NG/ML 10/06/2013 GC/CHL PRB 1506500 CHLM PROBE NEG 09/21/2013 GC/CHL PRB 8094373 GC PA OBE NEG 09/21/2013 DNA AB 9706942 DNA AB 36 IU/ML 09/17/2013 RA FACTOR 5699974 RA FAC TOR <20.0 IU/ML 09/16/2013 SM MUSC AB 2568888 SM MU SC AB <1:20 09/16/2013 CARDIO G/M 0672784 CARDI O IGG 1.7 GPLU 09/16/2013 CARDIO G/M 0011868 CARDI O IGM 4.8 MPLU 09/16/2013 ALENA SCR [id number] ALENA SCR <1:80 09/16/2013 CRP 6836070 CRP 1.1 MG/DL 09/15/2013 ESR 7140221 ESR 22 MM/HR 09/15/2013 CBC 5265984 WBC 5.5 10e9/L 04/26/2013 CBC 8854266 RBC 4.89 10e12/L 04/26/2013 CBC 5591200 HGB 12.8 g/dL 04/26/2013 CBC 1031972 HCT DET 39.5 % 04/26/2013 CBC 0810389 MCV 80.8 fL 04/26/2013 CBC 2152671 MCH 26.2 pg 04/26/2013 CBC 1865971 MCHC 32.4 g/dL 04/26/2013 CBC 7321471 PLT 299 10e9/L 04/26/2013 CBC 1543910 MPV 10.9 fL 04/26/2013 CBC 2715630 WAN % 59.0 % 04/26/2013 CBC 4033476 LY % 29.6 % 04/26/2013 CBC 8480408 MON % 9.1 % 04/26/2013 CBC 4758419 EOS % 1.8 % 04/26/2013 CBC 1529764 BASO % 0.5 % 04/26/2013 CBC 6604237 RDW 13.9 % 04/26/2013 CBC 6327741 ABS WAN 3.25 10e9/L 04/26/2013 CBC 6442597 ABS LYMPH 1.63 10e9/L 04/26/2013 CBC 4272512 ABS MONO 0.50 10e9/L 04/26/2013 CBC 7463771 ABS EOS 0.10 10e9/L 04/26/2013 CBC 8690704 ABS BASO 0.03 10e9/L 04/26/2013 CBC 3035446 RDW-SD 39.9 fL 04/26/2013 URINALYSIS NONAUTO W/O SCOPE 87984 Specific Royal 1.020 DateTime(Free Text in Apr) URINALYSIS NONAUTO W/O SCOPE 45264 PH 6.0 DateTime(Free Rik t in Aprima) URINALYSIS NONAUTO W/O SCOPE 69605 GLUCOSE neg DateTime(Free Rik t in Aprima) URINALYSIS NONAUTO W/O SCOPE 15060 Protein neg DateTime(Free Rik t in Aprima) URINALYSIS NONAUTO W/O SCOPE 39447 Blood neg DateTime(Free Rik t in Aprima) URINALYSIS NONAUTO W/O SCOPE 46063 Bilirubin neg DateTime(Free Rik t in Aprima) URINALYSIS NONAUTO W/O SCOPE 31569 Ketones neg DateTime(Free Rik t in Aprima) URINALYSIS NONAUTO W/O SCOPE 53126 Urobilinogen neg DateTime(Free Text in Apr) URINALYSIS NONAUTO W/O SCOPE 70802 Nitrite neg DateTime(Free Rik t in Apr) URINALYSIS NONAUTO W/O SCOPE 46479 Leukocytes 1+ DateTime(Free Text in ) Review [...] Date URINALYSIS NONAUTO W /O SCOPE CPT-4: 32004 11/02/2017 OCCULT BLOOD FECES CPT- 4: 46243 12/08/2016 IMMUNIZATION ADMIN CPT- 4: 01752 12/07/2015 FLU VACC 4 AMBER 3 YRS PLUS IM SNOMED CT: [id number] CPT-4: 45963 12/07/2015 URINALYSIS NONAUTO W /O SCOPE CPT-4: 16987 08/17/2015 CHEM 14 (COMPREHEN M ETABOLIC PANEL) CPT-4: 82009 10/06/2013 VIT D TOTL (VITAMIN D 25 HYDROXY) CPT-4: 39426 10/06/2013 CRP (C-REACTIVE PROT EIN) CPT-4: 27729 09/15/2013 ESR (RBC SED RATE AU TOMATED) CPT-4: 35436 09/15/2013 ROUTINE VENIPUNCTURE CPT-4: 01088 09/15/2013 URINALYSIS NONAUTO W /O SCOPE CPT-4: 50870 08/16/2013 C URINE RT CPT-4: 4577454 08/16/2013 C URINE RT (URINE CU LTURE/COLONY COUNT) CPT-4: 26914 08/16/2013 ROUTINE VENIPUNCTURE CPT-4: 40407 04/26/2013 Vital Signs Date Vital 04/20/2018 Blood Pressure 1: 150/90 Code: 8480-6 Heart Rate 1: 104 bpm Height: SpO2: 95% Weight: 11/02/2017 Blood Pressure 1: 130/76 Code: 8480-6 BMI: 37.6 Code: 49783-8 Heart Rate 1: 68 bpm Height: 5'5" SpO2: 98% Weight: 226 lbs 10/13/2017 Blood Pressure 1: 140/86 Code: 8480-6 BMI: 37.4 Code: 89592-9 Heart Rate 1: 78 bpm Height: 5'5" SpO2: 98% Weight: 225 lbs 07/20/2017 Blood Pressure 1: 128/80 Code: 8480-6 BMI: 39.1 Code: 25661-4 Heart Rate 1: 75 bpm Height: 5'5" SpO2: 98% Weight: 235 lbs 06/09/2017 Blood Pressure 1: 150/92 Code: 8480-6 BMI: 39.1 Code: 65234-6 Heart Rate 1: 106 bpm Height: 5'5" SpO2: 98% Weight: 235 lbs 05/12/2017 Blood Pressure 1: 144/68 Code: 8480-6 BMI: 38.9 Code: 87463-0 Heart Rate 1: 89 bpm Height: 5'5" SpO2: 98% Weight: 234 lbs 12/01/2016 Blood Pressure 1: 140/88 Code: 8480-6 BMI: 39.6 Code: 10380-5 Heart Rate 1: 101 bpm Height: 5'5" SpO2: 97% Weight: 238 lbs 08/05/2016 Blood Pressure 1: 134/82 Code: 8480-6 Heart Rate 1: 113 bpm Height: 5'5" SpO2: 98% 07/22/2016 Blood Pressure 1: 142/84 Code: 8480-6 BMI: 39.6 Code: 37479-1 Heart Rate 1: 103 bpm Height: 5'5" SpO2: 97% Weight: 238 lbs 03/06/2016 Blood Pressure 1: 138/86 Code: 8480-6 Heart Rate 1: 100 bpm SpO2: 96% Weight: 246 lbs 12/07/2015 Blood Pressure 1: 140/78 Code: 8480-6 BMI: 40.8 Code: 00780-9 Heart Rate 1: 97 bpm Height: 5'6" SpO2: 98% Weight: 250 lbs 11/09/2015 Blood Pressure 1: 118/84 Code: 8480-6 BMI: 40.7 Code: 81713-6 Heart Rate 1: 85 bpm Height: 5'6" SpO2: 98% Weight: 249 lbs 08/17/2015 Blood Pressure 1: 122/82 Code: 8480-6 BMI: 39.4 Code: 71577-0 Heart Rate 1: 86 bpm Height: 5'6" SpO2: 95% Weight: 241 lbs 07/24/2015 Blood Pressure 1: 118/76 Code: 8480-6 BMI: 39.9 Code: 27808-5 Heart Rate 1: 97 bpm Height: 5'6" SpO2: 96% Weight: 244 lbs 07/16/2015 Blood Pressure 1: 158/80 Code: 8480-6 Blood Pressure 1: 120/86 Code: 8480-6 Heart Rate 1: 105 bpm Height: 5'6" SpO2: 98% Weight: 06/12/2015 Blood Pressure 1: 128/82 Code: 8480-6 BMI: 39.9 Code: 01250-1 Heart Rate 1: 89 bpm Height: 5'6" SpO2: 98% Weight: 244 lbs 03/08/2015 Blood Pressure 1: 130/86 Code: 8480-6 Heart Rate 1: 98 bpm Height: 5'6" SpO2: 97% Weight: 12/29/2014 Blood Pressure 1: 138/88 Code: 8480-6 BMI: 39.2 Code: 30236-9 Heart Rate 1: 109 bpm Height: 5'6" SpO2: 97% Weight: 240 lbs 11/17/2014 Blood Pressure 1: 170/98 Code: 8480-6 BMI: 39.7 Code: 87543-1 Heart Rate 1: 92 bpm Height: 5'6" SpO2: 98% Weight: 243 lbs 05/16/2014 Blood Pressure 1: 130/82 Code: 8480-6 BMI: 39.2 Code: 71595-2 Heart Rate 1: 88 bpm Height: 5'6" Weight: 240 lbs 04/04/2014 Blood Pressure 1: 146/92 Code: 8480-6 Blood Pressure 2: 136/86 Code: 8480-6 BMI: 39.9 Code: 62226-4 Heart Rate 1: 68 bpm Height: 5'6" Weight: 244 lbs 12/01/2013 Blood Pressure 1: 142/80 Code: 8480-6 BMI: 38.4 Code: 97935-7 Heart Rate 1: 80 bpm Height: 5'6" Weight: 235 lbs 10/10/2013 Blood Pressure 1: 128/88 Code: 8480-6 BMI: 38.7 Code: 79055-0 Heart Rate 1: 88 bpm Height: 5'6" Weight: 237 lbs 09/15/2013 Blood Pressure 1: 112/74 Code: 8480-6 BMI: 39.0 Code: 64236-8 Heart Rate 1: 80 bpm Height: 5'6" Weight: 239 lbs 08/16/2013 Blood Pressure 1: 124/64 Code: 8480-6 BMI: 39.0 Code: 32206-3 Heart Rate 1: 88 bpm Height: 5'6" Weight: 239 lbs 06/06/2013 Blood Pressure 1: 120/72 Code: 8480-6 BMI: 37.9 Code: 09204-1 Heart Rate 1: 84 bpm Height: 5'6" Weight: 232 lbs 04/26/2013 Blood Pressure 1: 148/86 Code: 8480-6 BMI: 37.7 Code: 48156-4 Heart Rate 1: 84 bpm Height: 5'6" Weight: 231 lbs 04/14/2013 Blood Pressure 1: 148/92 Code: 8480-6 BMI: 38.2 Code: 32790-3 Heart Rate 1: 88 bpm Height: 5'6" [...] Encounters Encounter Performer Loca tion Codes Date ([id number]) 76513 EST. P ATIENT, LEVEL III Diagnosis: Insect bite (nonvenomous), left lower leg, initial encounter[ICD10: S80.862A] Katy Manzanares MD, [facility] CPT-4: 72304 04/20/2018 23992 EST. PATIENT, LEVEL II Diagnosis: Dysuria[ICD10: R30.0] Diagnosis: Other specified conditions associated with female genital organs and menstrual cycle[ICD10: N94.89] Katy Manzanares MD, [facility] CPT-4: 48321 11/02/2017 ([id number]) 97806 EST. 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 P ATIENT, LEVEL III Diagnosis: Essential (primary) hypertension[ICD10: I10] Katy Manzanares MD, [facility] CPT-4: 47693 07/20/2017 ([id number]) 57215 EST. P ATIENT, LEVEL III Diagnosis: Essential (primary) hypertension[ICD10: I10] Katy Manzanares MD, [facility] CPT-4: 78019 06/09/2017 ([id number]) 95484 EST. 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 P ATIENT, LEVEL IV Diagnosis: Essential [...] Diagnosis: Fever, unspecified[ICD10: R50.9] Katy Manzanares MD, [facility] CPT- 4: 14985 12/01/2016 ([id number]) 46777 EST. P ATIENT, LEVEL III Diagnosis: Impaired fasting glucose[ICD10: R73.01] Diagnosis: Low back pain[ICD10: M54.5] Diagnosis: Generalized anxiety disorder[ICD10: F41.1] Katy Manzanares MD, [facility] CPT-4: 68907 08/05/2016 ([id number]) 29191 EST. P ATIENT, LEVEL III Diagnosis: Essential (primary) hypertension[ICD10: I10] Diagnosis: Radiculopathy, lumbar region[ICD10: M54.16] Katy Manzanares MD, [facility] CPT-4: 71751 07/22/2016 ([id number]) Miscellaneou s no charge Diagnosis: Dysuria[ICD10: R30.0] Ally Manzanares MD, [facility] CPT-4: 69484 06/12/2016 ([id number]) 65133 EST. P ATIENT, LEVEL IV Diagnosis: Type 2 diabetes mellitus without complications[ICD10: E11.9] Diagnosis: Vitamin D deficiency, unspecified[ICD10: E55.9] Diagnosis: Generalized anxiety disorder[ICD10: F41.1] Diagnosis: Essential (primary) hypertension[ICD10: I10] Diagnosis: Radiculopathy, cervical region[ICD10: M54.12] Diagnosis: Cardiac murmur, unspecified[ICD10: R01.1] Katy Manzanares MD, [facility] CPT-4: 25098 03/06/2016 ([id number]) 66434 EST. P ATIENT, LEVEL III Diagnosis: Generalized anxiety disorder[ICD10: F41.1] Diagnosis: Major depressive disorder, recurrent, in partial remission[ICD10: F33.41] Katy Manzanares MD, [facility] CPT-4: 39834 12/07/2015 ([id number]) 68630 EST. P ATIENT, LEVEL IV Diagnosis: Essential (primary) hypertension[ICD10: I10] Diagnosis: Generalized anxiety disorder[ICD10: F41.1] Diagnosis: Other obesity due to excess calories[ICD10: E66.09] Katy Manzanares MD, [facility] CPT-4: 81630 11/09/2015 ([id number]) 50093 EST. P ATIENT, LEVEL III Diagnosis: Urinary tract infection, site not specified[ICD10: N39.0] Katy Manzanares MD, [facility] CPT-4: 37979 08/17/2015 ([id number]) 45839 EST. P ATIENT, LEVEL III Diagnosis: Generalized anxiety disorder[ICD10: F41.1] Diagnosis: Major depressive disorder, recurrent, moderate[ICD10: F33.1] Katy Manzanares MD, [facility] CPT-4: 69637 07/24/2015 ([id number]) 57792 EST. P ATIENT, LEVEL IV Diagnosis: Myalgia[ICD10: M79.1] Diagnosis: Low back pain[ICD10: M54.5] Diagnosis: Cervicalgia[ICD10: M54.2] Diagnosis: Essential (primary) hypertension[ICD10: I10] Diagnosis: Vitamin D deficiency, unspecified[ICD10: E55.9] Diagnosis: Generalized anxiety disorder[ICD10: F41.1] Katy Manzanares MD, [facility] CPT-4: 74286 07/16/2015 ([id number]) 65490 EST. P ATIENT, LEVEL IV Diagnosis: Cervicalgia[ICD10: M54.2] Diagnosis: Essential (primary) hypertension[ICD10: I10] Diagnosis: Low back pain[ICD10: M54.5] Diagnosis: Radiculopathy, cervical region[ICD10: M54.12] Katy Manzanares MD, [facility] CPT-4: 12595 06/12/2015 55108 EST. PATIENT, LEVEL III Diagnosis: Sacroiliitis, not elsewhere classified[ICD10: M46.1] Diagnosis: Low back pain[ICD10: M54.5] Diagnosis: Pain in left hip[ICD10: M25.552] Diagnosis: Pain in right hip[ICD10: M25.551] Samantha Manzanares MD, [facility] CPT-4: 51951 03/08/2015 23633 EST. PATIENT, LEVEL III Diagnosis: Anxiety disorder due to known physiological condition[ICD10: F06.4] Diagnosis: Mood disorder due to known physiological condition with depressive features[ICD10: F06.31] Diagnosis: Flushing[ICD10: R23.2] Samantha Manzanares MD, [facility] CPT-4: 58579 12/29/2014 ([id number]) 11592 EST. P ATIENT, LEVEL IV Diagnosis: ESSENTIAL HYPERTENSION[ICD9: 401.9] Diagnosis: Anxiety[ICD9: 300.00] Diagnosis: Depression[ICD9: 311] Katy Manzanares MD, [facility] CPT-4: 62321 11/17/2014 ([id number]) 14593 EST. P ATIENT, LEVEL IV Diagnosis: Anxiety[ICD9: 300.00] Diagnosis: Depression[ICD9: 311] Diagnosis: DIABETES TYPE II[ICD9: 250.00] Diagnosis: Vitamin D deficiency[ICD9: 268.9] Diagnosis: ESSENTIAL HYPERTENSION[ICD9: 401.9] Diagnosis: ABNORMAL WEIGHT GAIN[ICD9: 783.1] Katy Manzanares MD, [facility] CPT- 4: 58565 05/16/2014 ([id number]) 05712 EST. P ATIENT, LEVEL IV Diagnosis: ESSENTIAL HYPERTENSION[ICD9: 401.9] Diagnosis: Anxiety[ICD9: 300.00] Diagnosis: Depression[ICD9: 311] Katy Manzanares MD, [facility] CPT-4: 08833 04/04/2014 ([id number]) 65554 EST. P ATIENT, LEVEL IV Diagnosis: Diarrhea[ICD9: 787.91] Diagnosis: Epigastric pain[ICD9: 789.06] Diagnosis: ESOPHAGEAL REFLUX[ICD9: 530.81] Diagnosis: Blood in stool[ICD9: 578.1] Katy Manzanares MD, [facility] CPT- 4: 20357 12/01/2013 ([id number]) 60900 EST. P ATIENT, LEVEL IV Diagnosis: Vitamin D deficiency[ICD9: 268.9] Diagnosis: DIABETES TYPE II[ICD9: 250.00] Diagnosis: Depression[ICD9: 311] Diagnosis: Insomnia[ICD9: 780.52] Ally Manzanares MD, [facility] CPT-4: 61471 10/10/2013 ([id number]) PREV VISIT E ST AGE 40-64 Diagnosis: Well woman exam with routine gynecological exam[ICD9: V72.31] Diagnosis: JOINT PAIN-UNSPEC[ICD9: 719.40] Diagnosis: Nasal septal ulcer[ICD9: 478.19] Diagnosis: Swelling of extremity[ICD9: 729.81] Diagnosis: Pleuritic chest pain[ICD9: 786.52] Katy Manzanares MD, [facility] CPT-4: 04981 09/15/2013 ([id number]) 46846 EST. P ATIENT, LEVEL IV Diagnosis: DM W/O COMPLICATION TYPE II, UNCONTROLLED[SNOMED: 37476289] Diagnosis: Urinary tract infection[ICD9: 599.0] Diagnosis: DEPRESSIVE DISORDER NEC[ICD9: 311] Diagnosis: Anxiety[ICD9: 300.00] Diagnosis: Insomnia[ICD9: 780.52] Diagnosis: ANEMIA[ICD9: 285.9] Katy Manzanares MD, [facility] CPT-4: 58394 08/16/2013 ([id number]) 47347 EST. P ATIENT, LEVEL III Diagnosis: DM w/o complication type II, uncontrolled[SNOMED: 34482290] Ally Manzanares MD, [facility] CPT-4: 29135 06/06/2013 ([id number]) 08132 EST. P ATIENT, LEVEL III Diagnosis: DIABETES TYPE II[SNOMED: 807304756] [facility] CPT- 4: 38693 04/26/2013 ([id number]) OFFICE VISI T, NEW - LEVEL 4 Diagnosis: Elevated blood pressure[ICD9: 796.2] Diagnosis: Depression[ICD9: 311] Diagnosis: Elevated alkaline phosphatase level[ICD9: 790.5] Diagnosis: Elevated glucose[ICD9: 790.29] [facility] CPT-4: 88995 04/14/2013 Plan of Care Planned Activity Notes [...] of plan. 11/02/2017 Appointment: Katy Do WPtel: [address] [place], [place] [phone] (15 min) Moderate 11/02/2017 Patient Education: Patient [...] current medications. 10/13/2017 Appointment: Katy Do WPtel: [phone] (30 min) Complex 10/13/2017 Patient Education: Patient Medication Summary Completed 10/13/2017 Appointment: Katy Do WPtel: [phone] (15 min) Moderate 08/20/2017 Visit Plan: Hypertension - well con trolled but bystolic is not covered-will switch to metoprolol- continue other medications, continue with no added salt diet. Pt has been encouraged to exercise daily. The pt has been advised to call the office if there are any acute concerns about change in blood pressure readings at home. 07/20/2017 Appointment: Katy Do WPtel: [phone] (15 min) Moderate 07/20/2017 Patient Education: Patient Medication Summary Completed 07/20/2017 Appointment: Katy Do WPtel: [phone] (15 min) Moderate 07/14/2017 Visit Plan: Hypertension [...] iron supplement 05/12/2017 Appointment: Katy Do WPtel: [phone] (30 min) Complex 05/12/2017 Patient Education: Patient Medication Summary Completed 05/12/2017 Patient Education: Patient Medication Summary Completed 05/12/2017 Care Plan[facility]9 Pending 05/12/2017 Appointment: Lab Draw 12/08/2016 Patient [...] tick panel 12/01/2016 Appointment: Katy Do WPtel: [phone] (30 min) Complex 12/01/2016 Patient Education: Patient Medication Summary Completed 12/01/2016 Patient Education: Obesity Completed 12/01/2016 Care Plan: Lymes Disease Antibobies Igg/ Igm Pending 12/01/2016 Visit Plan: Elevated glucose-check Hgb A1C Low back pain-will write letter on patient's behalf for insurance precertification Tgmufuf-yifktvbxht-megt controlled-no changes 08/05/2016 Appointment: Katy Do WPtel: [phone] (30 min) Complex 08/05/2016 Patient Education: Patient [...] next month. 07/22/2016 Appointment: Kat[facility] Do WPtel[phone] (15 min) Moderate 07/22/2016 Patient Education: Patient [...] murmur-schedule Echo 03/06/2016 Appointment: Katy Do WPtel: [address] [place], [place] [phone] (30 min) Complex 03/06/2016 Patient Education: Patient [...] current medications. 12/07/2015 Appointment: Katy Do WPtel: [phone] (30 min) Complex 12/07/2015 Patient Education: Patient [...] weight check. 11/09/2015 Appointment: Katy Do WPtel: [facility] (30 min) Complex 11/09/2015 Patient Education: Patient Medication Summary Completed 11/09/2015 Patient Education: Obesity Completed 11/09/2015 Care Plan: BMI Above normal followup LOLI F-MGMT EDUC & TRAIN 1 PT Pending 11/09/2015 Appointment: Katy Do WPtel: [phone] (30 min) Complex 11/08/2015 Appointment: Katy Do WPtel: [phone] [phone] (15 min) Moderate 08/23/2015 Visit Plan: Urinary [...] D level 07/24/2015 Appointment: Katy Do WPtel: [phone] (30 min) Complex 07/24/2015 Patient Education: Patient [...] in blood pressure readings at home. Neck ckuk-jbrptbilergec-lhwpe to Dr Mckee for evaluation-patient has been [...] Moderate 09/04/2014 Appointment: Katy Do WPtel: [phone] [phone] [place] [address] Follow up 07/07/2014 Visit Plan: Anxiety and [...] Completed 05/16/2014 Appointment: Katy Do WPtel: [phone] [phone] Follow up 05/09/2014 Visit Plan: Hypertension - [...] this patient. 04/04/2014 Appointment: Hi Katy WPtel: [phone] Follow up 04/04/2014 Patient Education: Patient Medication [...] 12/01/2013 Care Plan: Referral Order SNOMED-CT : [id number] Ordered 12/01/2013 Visit Plan: Diabetes Mellitus - [...] for PRN use for insomnia. 10/10/2013 Appointment: lAly Manzanares WPtel: [facility]5 [facility] Follow up 10/10/2013 Patient Education: Patient Medication Summary Completed 10/10/2013 [place]: [place]: [address] [place], [place] [phone] Lab Draw 10/06/2013 Patient Education: Patient Medication Summary Completed 10/06/2013 Appointment: Ally Manzanares WPtel: [address] [place], [place] [phone] Follow up 10/04/2013 Visit Plan: Well Adult [...] or prn. Joint pain-pleuritic chest pain-swelling of cffd-ahmxwpg-knppryq for autoimmune disease such as lupus-plan to check labs and proceed as indicated. Instructed patient we will call her with results of labs. 09/15/2013 Appointment: Katy Do WPtel: [phone] US Pap Only 09/15/2013 Patient Education: Patient [...] iron panel 08/16/2013 Appointment: Katy Do WPtel: [facility]5 [phone] Follow up 08/16/2013 Patient Education: Patient Medication Summary Completed 08/16/2013 Care Plan: C URINE RT Pending 08/16/2013 Appointment: Katy Do WPtel: [phone] Follow up 08/09/2013 Appointment: Ally Manzanares WPtel: [facility] Follow up 08/08/2013 Visit Plan: Diabetes Mellitus [...] glucose control. 06/06/2013 Appointment: Ally Manzanares WPtel: [address] [place], [place] [phone] Follow up 06/06/2013 Patient Education: Patient Medication Summary Completed 06/06/2013 Appointment: Ally Manzanares WPtel: [facility] Follow up 05/12/2013 Visit Plan: Diabetes Mellitus [...] glucose control. 04/26/2013 Appointment: [facility] Do [phone] [phone] Diabetic education 04/26/2013 Patient Education: [...] and hgba1c. 04/14/2013 Appointment: Ally Manzanares WPtel: [facility] New Patient 04/14/2013 Patient Education: Patient Medication Summary Completed 04/14/2013 Appointment: Ally Manzanares WPtel: [phone] [facility] New Patient 04/05/2013 Referral: Dr Trujillo [...] pills daily keep metformin at current dose. order picker/assembler RX for vitamin D 49081 units weekly. . Diabetes Mellitus - controlled [...] change in symptoms, worsening redness, warmth, discharge. CHECK LABS INCREASE WELLBUTRIN TO 300MG DAILY [...] hands-intermittent fevers-check inflammatory labs including tick panel . Hypertension - wel l controlled - continue with current medications, continue with no added salt diet. Pt has been encouraged to exercise daily. The pt has been advised to call the office if there are any acute concerns about change in blood pressure readings at home. Myalgias-check labs Anxiety-not well controlled-refer to Kym Coleman for counseling Vitamin D deficiency-check labs . Pt is currently we aring a [...] of plan. HOLD METFORMIN X 1 W YAKUTAT RESTART PANTOPRAZOLE DAILY CONTINUE CARAFATE BEFORE MEALS [...] or prn. Joint pain-pleuritic chest pain-swelling of wdbc-wgdmfgf-udrkujr for autoimmune disease such as lupus-plan to [...] for this patient. SAMPLES OF FETZIMA . Hypertension - wel l controlled - continue with current medications, continue with no added salt diet. Pt has been encouraged to exercise daily. The pt has been advised to call the office if there are any acute concerns about change in blood pressure readings at home. Neck olil-dgskswjdkdtmc-ozqzh to Dr Mckee for evaluation-patient has been [...] see Dr Mckee for her neck first. [phone] Samuels and call Sandee to order picker/assembler a copy . Elevated glucose-check Hgb A1C Low back pain-will write letter on patient's behalf for insurance precertification Adspbnd-bnspajhitf-sbmw controlled-no changes Decrease fetzima to 20 mg [...] pt is to call for acute concerns. CHECK LABS TODAY MAMMOGRAM . Hypertension - [...] replacement Iron def anemia-check cbc-continue iron supplement pt needs to take VIT OSPINA D [...] to allow for greater blood glucose control. bystolic 5mg daily - monitor blood pressure [...] pt is to call for acute concerns. INCREASE METFORMIN T O A FULL TAB [...]
--- OUTSIDE RECORDS SUMMARY | 2019-03-04 02:58 | XMS REPORT | CCD ---
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 09/15/2013 Marital status Unknown M arried 04/14/[address]: 655931430 Never smoker 04/14/2013 Alcohol history Unknown occasionally drinks alcohol 04/14/2013 Allergies, Adverse Reactions, Alerts Allergies, Adverse Reactions, Alerts data not found Past Medical History Illness Codes Condition Status Onset Date Resolved Date Anemia, unspecified ICD- 9: 285.9 ICD-10: D64.9 Active 12/02/2016 Unknown Elevated C-reactive protein (CRP) ICD-9: 790.95 ICD-10: R79.82 Active 03/06/2016 Unknown Essential (primary) hypertension ICD-9: 401.9 ICD-10: I10 Active 03/05/2016 Unknown Fever, unspecified ICD- 9: 780.60 ICD-10: R50.9 Active 12/01/2016 Unknown Generalized anxiety disorder ICD-9: 300.02 ICD-10: F41.1 Active 03/05/2016 Unknown Major depressive dis order, recurrent, moderate ICD-9: 296.32 ICD-10: F33.1 Active 07/23/2015 Unknown Myalgia ICD-9: 729.1 ICD-10: M79.1 Active 07/15/2015 Unknown Pain in joints of le ft hand ICD-9: 719.44 ICD-10: M25.542 Active 12/01/2016 Unknown Pain in right hand ICD- 9: 729.5 ICD-10: M79.641 Active 12/01/2016 Unknown Type 2 diabetes marissa itus without complications ICD-9: 250.00 ICD-10: E11.9 Active 03/05/2016 Unknown Vitamin D deficiency , unspecified ICD-9: 268.9 ICD-10: E55.9 Active 03/05/2016 Unknown Impaired fasting glu cose ICD-9: 790.21 ICD-10: R73.01 Active 08/05/2016 Unknown Low back pain ICD-9: 724.2 ICD-10: M54.5 Active 07/15/2015 Unknown Radiculopathy, lumba r region ICD-9: 724.4 ICD-10: M54.16 Active 07/22/2016 Unknown Dysuria ICD-9: 788.1 ICD-10: R30.0 Active 06/12/2016 Unknown Elevated erythrocyte sedimentation rate ICD-9: 790.1 [...] ICD- 9: 285.9 ICD-10: D64.9 12/02/2016 Active Elevated C-reactive protein (CRP) ICD-9: 790.95 ICD-10: R79.82 03/06/2016 Active Essential (primary) hypertension ICD-9: 401.9 ICD-10: I10 03/05/2016 Active Fever, unspecified ICD- 9: 780.60 ICD-10: R50.9 12/01/2016 Active Generalized anxiety disorder ICD-9: 300.02 ICD-10: F41.1 03/05/2016 Active Major depressive dis order, recurrent, moderate ICD-9: 296.32 ICD-10: F33.1 07/23/2015 Active Myalgia ICD-9: 729.1 ICD-10: M79.1 07/15/2015 Active Pain in joints of le ft hand ICD-9: 719.44 ICD-10: M25.542 12/01/2016 Active Pain in right hand ICD- 9: 729.5 ICD-10: M79.641 12/01/2016 Active Type 2 diabetes marissa itus without complications ICD-9: 250.00 ICD-10: E11.9 03/05/2016 Active Vitamin D deficiency , unspecified ICD-9: 268.9 ICD-10: E55.9 03/05/2016 Active Impaired fasting glu cose ICD-9: 790.21 ICD-10: R73.01 08/05/2016 Active Low back pain ICD-9: 724.2 ICD-10: M54.5 07/15/2015 Active Radiculopathy, lumba r region ICD-9: 724.4 ICD-10: M54.16 07/22/2016 Active Dysuria ICD-9: 788.1 ICD-10: R30.0 06/12/2016 Active Elevated erythrocyte sedimentation rate ICD-9: 790.1 [...] 20 mg-hyd rochlorothiazide 12.5 mg tablet RxNorm: 249182 1 TABLET(S) PO DAILY 04/23/2017 10/19/2017 Active Wellbutrin XL 300 mg 24 hr tablet, extended release RxNorm: 725463 1 Tablet(s) PO daily 1 TABLET(S) PO DAILY 12/01/2016 05/29/2017 Active Wellbutrin XL 150 mg 24 hr tablet, extended release RxNorm: 265364 1 TABLET(S) PO DAILY 10/07/2016 11/30/2016 Inactive amitriptyline 25 mg tablet RxNorm: 790394 2 TAB(S) PO HS,INSTR: FOR PAIN AND SLEEP 09/24/2016 No Stop Date Active amitriptyline 25 mg tablet RxNorm: 839889 2 Tablet(s) PO QHS 09/23/2016 09/23/2016 Inactive meloxicam 15 mg tablet RxNorm: 009025 1 TABLET(S) PO DAILY 09/08/2016 12/06/[address] on hold until pt needs it: she is going to take (2) 7.5mg until gone cetirizine 10 mg tablet RxNorm: 5140845 1 Tablet(s) PO daily 07/22/2016 No Stop Date Active lisinopril 20 mg-hyd rochlorothiazide 12.5 mg tablet RxNorm: 699293 1 TABLET(S) PO DAILY 06/20/2016 12/16/2016 Inactive Wellbutrin XL 150 mg 24 hr tablet, extended release RxNorm: 190719 1 TABLET(S) PO DAILY 05/12/2016 08/09/2016 Inactive Victoza 3-Jean 0.6 mg /0.1 mL (18 mg/3 mL) subcutaneous pen injector RxNorm: 473296 0.6 Milligram(s) SQ daily 03/21/2016 07/21/2016 Inactive NovoFine Plus 32 gau ge x 1/6" needle RxNorm: 1 Miscellaneous daily 03/21/2016 07/21/2016 Inactive NovoFine Plus 32 gau ge x 1/6" needle RxNorm: 1 Miscellaneous daily 03/21/2016 03/20/2016 Inactive Victoza 3-Jean 0.6 mg /0.1 mL (18 mg/3 mL) subcutaneous pen injector RxNorm: 564131 0.6 Milligram(s) SQ daily 03/21/2016 03/20/2016 Inactive Vitamin D2 50,000 un it capsule RxNorm: 493470 1 Capsule(s) PO QW 03/20/2016 06/17/2016 Inactive meloxicam 15 mg tablet RxNorm: 997662 1 Tablet(s) PO daily 03/20/2016 07/17/[address] on hold until pt needs it: she is going to take (2) 7.5mg until gone lisinopril 20 mg-hyd rochlorothiazide 12.5 mg tablet RxNorm: 272161 1 TABLET(S) PO DAILY 02/19/2016 05/18/2016 Inactive gabapentin 800 mg ta blet RxNorm: 217777 1 Tablet(s) PO TID 11/09/2015 No Stop Date Active Wellbutrin XL 150 mg 24 hr tablet, extended release RxNorm: 239206 1 Tablet(s) PO daily 11/09/2015 03/07/2016 Inactive Lexapro 10 mg tablet RxNorm: 626810 1 TABLET(S) PO QPM 11/05/2015 11/08/2015 Inactive lisinopril 20 mg-hyd rochlorothiazide 12.5 mg tablet RxNorm: 673819 1 TABLET(S) PO DAILY 10/18/2015 01/15/2016 Inactive Cipro 500 mg tablet RxNorm: 130917 1 Tablet(s) PO BID 08/17/2015 08/23/2015 Inactive Lexapro 10 mg tablet RxNorm: 520976 1 Tablet(s) PO QPM 07/24/2015 10/21/2015 Inactive Vitamin D2 50,000 un it capsule RxNorm: 221328 1 Capsule(s) PO QW 07/24/2015 10/21/2015 Inactive gabapentin 300 mg ca psule RxNorm: 135295 2 Capsule(s) PO TID 07/16/2015 11/08/2015 Inactive lisinopril 20 mg-hyd rochlorothiazide 12.5 mg tablet RxNorm: 278507 1 TABLET(S) PO DAILY 04/09/2015 07/07/2015 Inactive naproxen 250 mg tablet RxNorm: 801920 1-2 Tablet(s) PO BID as needed for pain 03/08/2015 No Stop Date Active Fetzima 40 mg capsul e,extended release RxNorm: 1642446 1 Capsule(s) PO adri y 12/22/2014 12/21/2014 In active Fetzima 40 mg capsul e,extended release RxNorm: 2640461 1 Capsule(s) PO adri y 12/22/2014 06/11/2015 In active Xanax 0.5 mg tablet RxNorm: 327860 1 Tablet(s) TAKE 1 TABLET BY MOUTH TWICE DAILY NEEDED FOR ANXIETY 11/17/2014 01/15/2015 Inactive lisinopril 20 mg-hyd rochlorothiazide 12.5 mg tablet RxNorm: 007454 1 Tablet(s) PO daily 11/17/2014 03/16/2015 Inactive Fetzima 20 mg capsul e,extended release RxNorm: 9134218 1 Capsule(s) PO adri y 11/17/2014 12/22/2014 In active Xanax 0.5 mg tablet RxNorm: 359269 1 Tablet(s) TAKE 1 TABLET BY MOUTH TWICE DAILY NEEDED FOR ANXIETY 10/27/2014 11/16/2014 Inactive Xanax 0.5 mg tablet RxNorm: 728448 TAKE 1 TABLET BY MOUTH TWICE DAILY NE EDED FOR ANXIETY 08/25/2014 10/23/2014 Inactive Brintellix 10 mg tablet RxNorm: 2436356 1 Tablet(s) PO daily 07/04/2014 07/03/2014 Inactive Brintellix 10 mg tablet RxNorm: 2818906 1 Tablet(s) PO daily 07/04/2014 11/16/2014 Inactive Brintellix 10 mg tablet RxNorm: 0373484 1 Tablet(s) PO daily 06/09/2014 07/03/2014 Inactive Contrave 8 mg-90 mg tablet,extended release RxNorm: 5291757 2 Tablet(s) PO BID 06/09/2014 09/06/2014 In active 1 tab q am x 1 week, then 1 tab BID x 1 week, then 2 q am and 1 q pm x 1 week then 2 tabs BID thereafter Contrave 8 mg-90 mg tablet,extended release RxNorm: 2836726 2 Tablet(s) PO BID 06/09/2014 06/08/2014 In active 1 tab q am x 1 week, then 1 tab BID x 1 week, then 2 q am and 1 q pm x 1 week then 2 tabs BID thereafter metformin 500 mg tablet RxNorm: 091124 1/2 Tablet(s) PO BID 05/18/2014 09/14/2014 Inactive Brintellix 10 mg tablet RxNorm: 9620786 2 Tablet(s) PO daily 05/16/2014 06/08/2014 Inactive Xanax 0.5 mg tablet RxNorm: 841587 1 Tablet(s) PO BID PRN 04/06/2014 08/25/2014 Inactive Wellbutrin XL 150 mg 24 hr tablet, extended release RxNorm: 388562 1 Tablet(s) PO daily 04/04/2014 05/15/2014 Inactive [SAVINGS FOR UNINSURED PATIENTS -- BIN:0 05692, PCN: [id number], Group: [id number], ID# [id number], Process claim through [employer], for questions: . THIS IS NOT INSURANCE.] pantoprazole 40 mg t ablet,delayed release RxNorm: 516447 1 Tablet(s) PO daily 12/01/2013 03/30/2014 In active Vitamin D3 2,000 uni t tablet RxNorm: 214122 1 Tablet(s) PO daily 10/10/2013 No Stop Date Active Vitamin D2 50,000 un it capsule RxNorm: 464165 1 Capsule(s) PO QW 10/10/2013 11/16/2014 Inactive vitamin d 50,000 units weekly x 12 weeks then 5000 units daily thereafter escitalopram 20 mg t ablet RxNorm: 477282 1 Tablet(s) PO daily 10/10/2013 04/04/2014 Inactive trazodone 100 mg tablet RxNorm: 784307 1 TABLET(S) PO QHS 09/19/2013 01/16/2014 Inactive trazodone 100 mg tablet RxNorm: 381811 1 Tablet(s) PO QHS 08/16/2013 09/14/2013 Inactive metformin 500 mg tablet RxNorm: 453452 1 Tablet(s) PO BID 08/16/2013 04/03/2014 Inactive Diflucan 150 mg tablet RxNorm: 289251 1 Tablet(s) PO daily 08/16/2013 08/22/2013 Inactive metformin 500 mg tablet RxNorm: 647889 1/2 Tablet(s) PO BID 1/2 tab in the even ing x 1 week then 1/2 tab twice daily 04/26/2013 08/15/2013 Inactive Vitamin D2 50,000 un it capsule RxNorm: 284512 1 Capsule(s) PO QW 04/21/2013 10/09/2013 Inactive vitamin d 50,000 units weekly x 12 weeks then 5000 units daily thereafter Lexapro 10 mg tablet RxNorm: 537636 1 Tablet(s) PO daily 04/14/2013 10/09/2013 Inactive Slow Fe oral RxNorm: 70731 oral No Start Date Active tizanidine 2 mg tablet RxNorm: 032679 1 Tablet(s) PO TID No Start Date Active vitamin B complex ca psule RxNorm: 1 Capsule(s) PO daily No Start Date Active diclofenac 75 mg-mis oprostol 200 mcg tablet,immediate,delayed release RxNorm: 0210500 1 Tablet(s) PO BID No Start Date Active methocarbamol 500 mg tablet RxNorm: 241950 1 Tablet(s) PO TID No Start Date Active lisinopril 20 mg-hyd rochlorothiazide 12.5 mg tablet RxNorm: 836530 1 Tablet(s) PO daily No Start Date 11/16/2014 Inactive gabapentin 300 mg ca psule RxNorm: 714826 1 Capsule(s) PO TID No Start Date 07/15/2015 Inactive cetirizine 10 mg tablet RxNorm: 7011790 1 Tablet(s) PO daily No Start Date 03/05/2016 Inactive Vitamin D2 50,000 un it capsule RxNorm: 370171 1 Capsule(s) PO QW No Start Date 04/20/2013 Inactive pantoprazole 40 mg t ablet,delayed release RxNorm: 154596 1 Tablet(s) PO daily No Start Date 10/09/2013 Inactive amitriptyline 10 mg tablet RxNorm: 586832 1 Tablet(s) PO QHS No Start Date 09/22/2016 Inactive meloxicam 7.5 mg tablet RxNorm: 701618 1 Tablet(s) PO daily No Start Date 03/19/2016 Inactive ibuprofen 200 mg tablet RxNorm: 069965 3 Tablet(s) PO TID No Start Date 11/30/2013 Inactive Advair Diskus 250 mc g-50 mcg/dose powder for inhalation RxNorm: 8066309 2 INH daily No Start Date 07/23/2015 Inactive Medication Administered No Medication Administered data Immunizations Vaccine Codes Date Status Influenza CVX: 141 12/06 completed Influenza CVX: 141 12/07 completed Influenza CVX: 141 12/27 completed Assessments Condition Codes Effectiv e Dates Anemia, unspecified ICD-10: D64.9 ICD-9: 285.9 12/08/2016 Myalgia ICD-10: M79.1 ICD-9: 729.1 12/01/2016 Generalized anxiety disorder ICD-10: F41.1 ICD-9: 300.02 12/01/2016 Major depressive disorder, recurrent, moderate ICD-10: F33.1 ICD-9: 296.32 12/01/2016 Type 2 diabetes mellitus without complications ICD-10: E11.9 ICD-9: 250.00 12/01/2016 Essential (primary) hypertension ICD -10: I10 ICD-9: 401.9 12/01/2016 Pain in right hand ICD-10: M79.641 ICD-9: 729.5 12/01/2016 Vitamin D deficiency, unspecified IC D-10: E55.9 ICD-9: 268.9 12/01/2016 Fever, unspecified ICD-10: R50.9 ICD-9: 780.60 12/01/2016 Pain in joints of left hand ICD-10: M25.542 ICD-9: 719.44 12/01/2016 Elevated C-reactive protein (CRP) IC D-10: R79.82 ICD-9: 790.95 12/01/2016 Impaired fasting glucose ICD-10: R73 .01 ICD-9: 790.21 08/05/2016 Low back pain ICD-10: M54.5 ICD-9: 724.2 08/05/2016 Radiculopathy, lumbar region ICD-10: M54.16 ICD-9: 724.4 07/22/2016 Dysuria ICD-10: R30.0 ICD-9: 788.1 06/12/2016 [...] 10/10/2013 Laboratory exam ordered as part of [facility] general medical examination ICD-9: V72.62 10/06/2013 Swelling of extremity ICD-9: 729.81 09/15/2013 JOINT PAIN-UNSPEC ICD-9: 719.40 09/15/2013 Pleuritic chest pain ICD-9: 786.52 09/15/2013 Well woman exam with routine gynecological exam ICD-9: V72.31 09/15/2013 Nasal septal ulcer ICD-9: 478.19 09/15/2013 ANEMIA ICD-9: 285.9 08/07 DM W/O COMPLICATION TYPE II, UNCONTROLLED SNOMED: 19040856 ICD-9: 250.02 08/16/2013 Urinary tract infection ICD-9: 599.0 08/16/2013 Elevated alkaline phosphatase level ICD-9: 790.5 04/14/2013 Elevated glucose ICD-9: 790.29 04/14/2013 Elevated blood pressure ICD-9: 796.2 04/14/2013 Reason For Visit Reason For Visit Effective Dates Notes joint complaint 12/01/2016 pre-op/surgery consult 08/05/2016 lower [...] Observation Code Item Item Code Result Date Lymes Disease Total Antibodies With Western Blot Refle x 491450 B. BURGDORFERI, IGG/IGM 0.048 12/08/2016 Lymes Disease Total Antibodies With Western Blot Refle x 213589 12/08/2016 Alena Reflex Profile [id number] ALENA (VENT[place]) SCREEN NONE DETECTED 017 Ehrlichia Chaffeensis Antibody Igm 419223 EHRLICHIA CHAFFEENSIS IGM < 1:16 12/05/2016 Foss Spotted Fever Igg/Igm 90279 3 GUME MT SPOTTED FEVER IGM EIA . 12/05/2016 Foss Spotted Fever Igg/Igm 88644 3 RMSF, IGM 0.43 index 12/05/2016 Foss Spotted Fever Igg/Igm 41842 3 GUME MT SPOTTED FEVER IGG EIA FLEX . 12/05/2016 Foss Spotted Fever Igg/Igm 28730 3 RMSF, IGG SCREEN-FLEX Negative 12/05/2016 Ehrlichia Chaffeensis Antibody Igg 437593 EHRLICHIA CHAFFEENSIS IGG <1:64 12/05/2016 Tibc Ord40 Iron 37 ug/dl 12/02/2016 Tibc Ord40 UIBC 372 ug/dL 12/02/2016 Tibc Ord40 TIBC 409 ug/dL 12/02/2016 Tibc Ord40 Fe-%Sat 9.0 % 12/02/2016 Ferritin Ord22 FERRITIN 13.9 ng/mL 12/02/2016 B12 Mgm744 B12 344.00 pg/ml 12/02/2016 %Hba1C Elx623 % HbA1c 04659-2 6.1 % 12/01/2016 %Hba1C Npb599 Gluc Ave 128 mg/dL 12/01/2016 Cbc With Differential Ord2 WBC 6.91 K/ul 12/01/2016 Cbc With Differential Ord2 RBC 4.27 M/ul 12/01/2016 Cbc With Differential Ord2 HGB 11.2 g/dl 12/01/2016 Cbc With Differential Ord2 Neut% 59.4 % 12/01/2016 Cbc With Differential Ord2 HCT 34.9 % 12/01/2016 Cbc With Differential Ord2 MCV 81.7 fl 12/01/2016 Cbc With Differential Ord2 Lymph% 25.3 % 12/01/2016 Cbc With Differential Ord2 [place]% 8.8 % 12/01/2016 Cbc With Differential Ord2 MCH 26.2 pg 12/01/2016 Cbc With Differential Ord2 Eos% 5.6 % 12/01/2016 Cbc With Differential Ord2 MCHC 32.1 pg 12/01/2016 Cbc With Differential Ord2 PLT 328 K/ul 12/01/2016 Cbc With Differential Ord2 Baso% 0.9 % 12/01/2016 Cbc With Differential Ord2 Neut ABS# 4.10 K/ul 12/01/2016 Cbc With Differential Ord2 RDW 14.0 % 12/01/2016 Cbc With Differential Ord2 Lymph ABS# 1.75 K/ul 12/01/2016 Cbc With Differential Ord2 [place] ABS# 0.6 K/ul 12/01/2016 Cbc With Differential Ord2 Eos ABS# 0.4 K/ul 12/01/2016 Cbc With Differential Ord2 Baso ABS# 0.1 K/ul 12/01/2016 Tsh Ord6 hTSH II 1.80 uIU/mL 12/01/2016 C-Reactive Protein Qnt Crqnt CRP 1.5 mg/dl 12/01/2016 Sed Rate Ord21 ESR 14 mm/hr 12/01/2016 Ra Factor Git433 RA FACT OR <10 IU/ml 12/01/2016 Vitamin D 25 Oh Crq1769 VITAMIN D, 25 HYDROXY 30.98 ng/mL 12/01/2016 Comp Metabolic Pjr016 NA 140 mEq/L 12/01/2016 Comp Metabolic Xct005 K 3.9 mEq/L 12/01/2016 Comp Metabolic Pri737 CL 106 mEq/L 12/01/2016 Comp Metabolic Yrd642 CO2 26.0 mEq/L 12/01/2016 Comp Metabolic Xak184 AN ION GAP 12 12/01/2016 Comp Metabolic Rrv907 GL UCOSE 147 mg/dL 12/01/2016 Comp Metabolic Huv055 Cr eat 0.6 mg/dL 12/01/2016 Comp Metabolic Eqd778 eG FR 114 ml/min/1.73m2 11/08 Comp Metabolic Elu781 BUN 11 mg/dL 12/01/2016 Comp Metabolic Mxi479 B/ C Ratio 18.6 Ratio 12/01/2016 Comp Metabolic Qiw632 CA LCIUM 8.8 mg/dL 12/01/2016 Comp Metabolic Psq099 AL K PHOS 138 U/L 12/01/2016 Comp Metabolic Ivx486 T(SGOT) 34 U/L 12/01/2016 Comp Metabolic Tme448 AL T(SGPT) 26 U/L 12/01/2016 Comp Metabolic Uqm668 BI LI T 0.3 mg/dL 12/01/2016 Comp Metabolic Vgy220 AL BUMIN 3.8 g/dL 12/01/2016 Comp Metabolic Vqv253 TP RO 6.2 g/dL 12/01/2016 Comp Metabolic Vyr242 GL OB 2.4 g/dL 12/01/2016 Comp Metabolic Lul497 A/ G Ratio 1.6 Ratio 12/01/2016 Comp Metabolic Epy283 Os mo 281 mOsmo 12/01/2016 %Hba1C Byp027 % HbA1c 01208-3 6.3 % 08/05/2016 %Hba1C Eln001 Gluc Ave 134 mg/dL 08/05/2016 Alena [id number] ALENA ([place]) Joshua CHADWICK NONE DETECTED 017 Vitamin D 25 Oh Rtt4353 VITAMIN D, 25 HYDROXY 32.26 ng/mL 03/07/2016 Ra Factor Ifh819 RA FACT OR <10 IU/ml 03/07/2016 C-Reactive Protein Qnt Crqnt CRP 2.0 mg/dl 03/06/2016 Sed Rate Ord21 ESR 32 mm/hr 03/06/2016 %Hba1C Wag446 % HbA1c 69511-7 6.3 % 03/06/2016 %Hba1C Rdp741 Gluc Ave 134 mg/dL 03/06/2016 Comp Metabolic Alu918 NA 138 mEq/L 03/06/2016 Comp Metabolic Ato515 K 4.3 mEq/L 03/06/2016 Comp Metabolic Izb758 CL 103 mEq/L 03/06/2016 Comp Metabolic Piv566 CO2 23.0 mEq/L 03/06/2016 Comp Metabolic Zxy091 AN ION GAP 16 03/06/2016 Comp Metabolic Ehg616 GL UCOSE 148 mg/dL 03/06/2016 Comp Metabolic Qwn540 Cr eat 0.6 mg/dL 03/06/2016 Comp Metabolic Vdj561 eG FR 104 ml/min/1.73m2 02/07 Comp Metabolic Ipl878 BUN 13 mg/dL 03/06/2016 Comp Metabolic Ebf851 B/ C Ratio 20.3 Ratio 03/06/2016 Comp Metabolic Amj541 CA LCIUM 9.7 mg/dL 03/06/2016 Comp Metabolic Kqz607 AL K PHOS 146 U/L 03/06/2016 Comp Metabolic Anx654 T(SGOT) 25 U/L 03/06/2016 Comp Metabolic Ifj805 AL T(SGPT) 25 U/L 03/06/2016 Comp Metabolic Zln640 BI LI T 0.3 mg/dL 03/06/2016 Comp Metabolic Jmx791 AL BUMIN 4.1 g/dL 03/06/2016 Comp Metabolic Goq685 TP RO 6.9 g/dL 03/06/2016 Comp Metabolic Eab149 GL OB 2.8 g/dL 03/06/2016 Comp Metabolic Yep401 A/ G Ratio 1.5 Ratio 03/06/2016 Comp Metabolic Hnr035 Os mo 279 mOsmo 03/06/2016 Cbc With [...] 27.1 pg 03/06/2016 Cbc With Differential Ord2 [place]% 9.2 % 03/06/2016 Cbc With Differential Ord2 MCHC 32.7 pg 03/06/2016 Cbc With Differential Ord2 Eos% 3.1 % 03/06/2016 Cbc With Differential Ord2 Baso% 0.9 % 03/06/2016 Cbc With Differential Ord2 PLT 288 K/ul 03/06/2016 Cbc With Differential Ord2 Neut ABS# 3.62 K/ul 03/06/2016 Cbc With Differential Ord2 RDW 14.1 % 03/06/2016 Cbc With Differential Ord2 Lymph ABS# 1.35 K/ul 03/06/2016 Cbc With Differential Ord2 [place] ABS# 0.5 K/ul 03/06/2016 Cbc With Differential Ord2 Eos ABS# 0.2 K/ul 03/06/2016 Cbc With Differential Ord2 Baso ABS# 0.1 K/ul 03/06/2016 Tsh Ord6 hTSH II 3.61 uIU/mL 03/06/2016 Culture Urine [id number] URI NE CULTURE SEE NOTES 08/20/2015 Culture Urine [id number] Con tinued Results 08/20/2015 Urine Culture Ucult Comp lete Growth of aerobe sent to ref lab 08/18/2015 Vitamin D 25 Oh Rhs0678 VITAMIN D, 25 HYDROXY 24.39 ng/mL 07/18/2015 Comp Metabolic Uvv116 NA 136 mEq/L 07/17/2015 Comp Metabolic Pgs452 K 4.0 mEq/L 07/17/2015 Comp Metabolic Lvz170 CL 100 mEq/L 07/17/2015 Comp Metabolic Iyp558 CO2 27.0 mEq/L 07/17/2015 Comp Metabolic Nls661 AN ION GAP 13 07/17/2015 Comp Metabolic Dkv177 GL UCOSE 121 mg/dL 07/17/2015 Comp Metabolic Lrn398 Cr eat 0.7 mg/dL 07/17/2015 Comp Metabolic Ode811 eG FR 96 ml/min/1.73m2 07/16 Comp Metabolic Irf851 BUN 10 mg/dL 07/17/2015 Comp Metabolic Ang007 B/ C Ratio 14.5 Ratio 07/17/2015 Comp Metabolic Ace416 CA LCIUM 8.9 mg/dL 07/17/2015 Comp Metabolic Zqb086 AL K PHOS 146 U/L 07/17/2015 Comp Metabolic Cgl007 T(SGOT) 20 U/L 07/17/2015 Comp Metabolic Aju308 AL T(SGPT) 22 U/L 07/17/2015 Comp Metabolic Jpp649 BI LI T 0.4 mg/dL 07/17/2015 Comp Metabolic Vhg246 AL BUMIN 4.0 g/dL 07/17/2015 Comp Metabolic Ajo500 TP RO 6.6 g/dL 07/17/2015 Comp Metabolic Bsv799 GL OB 2.6 g/dL 07/17/2015 Comp Metabolic Ixd144 A/ G Ratio 1.6 Ratio 07/17/2015 Comp Metabolic Vam502 Os mo 272 mOsmo 07/17/2015 Sed Rate [...] 26.1 pg 07/17/2015 Cbc With Differential Ord2 [place]% 12.6 % 07/17/2015 Cbc With Differential Ord2 Eos% 0.7 % 07/17/2015 Cbc With Differential Ord2 MCHC 31.3 pg 07/17/2015 Cbc With Differential Ord2 Baso% 0.5 % 07/17/2015 Cbc With Differential Ord2 PLT 308 K/ul 07/17/2015 Cbc With Differential Ord2 RDW 16.5 % 07/17/2015 Cbc With Differential Ord2 Neut ABS# 5.11 K/ul 07/17/2015 Cbc With Differential Ord2 Lymph ABS# 1.25 K/ul 07/17/2015 Cbc With Differential Ord2 [place] ABS# 0.9 K/ul 07/17/2015 Cbc With Differential [...] Crqnt CRP 2.9 mg/dl 07/17/2015 GFR CALC 8526140 GFR AA >60 ML/MIN 10/06/2013 GFR CALC 0256528 GFR NON -AA >60 ML/MIN 10/06/2013 CHEM 14 2763129 AST 34 U/L 10/06/2013 CHEM 14 3306846 ALT 30 IU/L 10/06/2013 CHEM 14 3890699 BUN 11 MG/DL 10/06/2013 CHEM 14 3836624 ALBUMIN 4.4 GM/DL 10/06/2013 CHEM 14 9040959 CHLORIDE 107 MMOL/L 10/06/2013 CHEM 14 7014569 BILI TOT 0.4 MG/DL 10/06/2013 CHEM 14 4762382 ALK PHOS 133 U/L 10/06/2013 CHEM 14 6452833 SODIUM 140 MMOL/L 10/06/2013 CHEM 14 5742669 CREATINI NE 0.67 MG/DL 10/06/2013 CHEM 14 6784685 CALCIUM 9.3 MG/DL 10/06/2013 CHEM 14 6301167 POTASSIUM 4.0 MMOL/L 10/06/2013 CHEM 14 6261794 PROT TOT 7.1 GM/DL 10/06/2013 CHEM 14 7255205 GLUCOSE 108 MG/DL 10/06/2013 CHEM 14 2673446 BICARB 25 MMOL/L 10/06/2013 CHEM 14 8145910 ANION GAP 8 MEQ/L 10/06/2013 VIT D TOTL 3560288 VIT D TOTL 37 NG/ML 10/06/2013 GC/CHL PRB 3168561 CHLM PROBE NEG 09/21/2013 GC/CHL PRB 7288846 GC MT OBE NEG 09/21/2013 DNA AB 6568981 DNA AB 36 IU/ML 09/17/2013 RA FACTOR 9951148 RA FAC TOR <20.0 IU/ML 09/16/2013 SM MUSC AB 7221585 SM MU SC AB <1:20 09/16/2013 CARDIO G/M 5770223 CARDI O IGG 1.7 GPLU 09/16/2013 CARDIO G/M 5710416 CARDI O IGM 4.8 MPLU 09/16/2013 ALENA SCR [id number] ALENA SCR <1:80 09/16/2013 CRP 3371275 CRP 1.1 MG/DL 09/15/2013 ESR 0523403 ESR 22 MM/HR 09/15/2013 CBC 8948896 WBC 5.5 10e9/L 04/26/2013 CBC 5014988 RBC 4.89 10e12/L 04/26/2013 CBC 3563412 HGB 12.8 g/dL 04/26/2013 CBC 1610489 HCT DET 39.5 % 04/26/2013 CBC 6098052 MCV 80.8 fL 04/26/2013 CBC 7317469 MCH 26.2 pg 04/26/2013 CBC 4103950 MCHC 32.4 g/dL 04/26/2013 CBC 0249806 PLT 299 10e9/L 04/26/2013 CBC 3727312 MPV 10.9 fL 04/26/2013 CBC 5397709 WAN % 59.0 % 04/26/2013 CBC 0824845 LY % 29.6 % 04/26/2013 CBC 7758431 MON % 9.1 % 04/26/2013 CBC 8883366 EOS % 1.8 % 04/26/2013 CBC 7227446 BASO % 0.5 % 04/26/2013 CBC 7730528 RDW 13.9 % 04/26/2013 CBC 1059170 ABS WAN 3.25 10e9/L 04/26/2013 CBC 6942950 ABS LYMPH 1.63 10e9/L 04/26/2013 CBC 7770616 ABS MONO 0.50 10e9/L 04/26/2013 CBC 3444040 ABS EOS 0.10 10e9/L 04/26/2013 CBC 5477598 ABS BASO 0.03 10e9/L 04/26/2013 CBC 6036900 RDW-SD 39.9 fL 04/26/2013 URINALYSIS NONAUTO W/O SCOPE 44472 Specific [place] 1.020 DateTime(Free Text in Aprima) URINALYSIS NONAUTO W/O SCOPE 26061 PH 6.0 DateTime(Free Rik t in Aprima) URINALYSIS NONAUTO W/O SCOPE 20256 GLUCOSE neg DateTime(Free Rik t in Apr[employer]) URINALYSIS NONAUTO W/O SCOPE 93828 Protein neg DateTime(Free Rik t in Apr[employer]) URINALYSIS NONAUTO W/O SCOPE 51925 Blood neg DateTime(Free Rik t in Apr[employer]) URINALYSIS NONAUTO W/O SCOPE 59980 Bilirubin neg DateTime(Free Rik t in Apr[employer]) URINALYSIS NONAUTO W/O SCOPE 19209 Ketones neg DateTime(Free Rik t in Apr[employer]) URINALYSIS NONAUTO W/O SCOPE 05074 Urobilinogen neg DateTime(Free Text in [employer]) URINALYSIS NONAUTO W/O SCOPE 27949 Nitrite neg DateTime(Free Rik t in Apr[employer]) URINALYSIS NONAUTO W/O SCOPE 18882 Leukocytes 1+ DateTime(Free Text in ) Review of Systems System Result Effective Dates Constitutional No recent illness 12/01/2016 Constitutional No [...] affect 04/14/2013 None Procedures Procedure Codes Date OCCULT BLOOD FECES CPT- 4: 27998 12/08/2016 IMMUNIZATION ADMIN CPT- 4: 70783 12/07/2015 FLU VACC 4 AMBER 3 YRS PLUS IM SNOMED CT: 48022518 CPT-4: 78295 12/07/2015 URINALYSIS NONAUTO W /O SCOPE CPT-4: 74206 08/17/2015 CHEM 14 (COMPREHEN M ETABOLIC PANEL) CPT-4: 23559 10/06/2013 VIT D TOTL (VITAMIN D 25 HYDROXY) CPT-4: 91161 10/06/2013 CRP (C-REACTIVE PROT EIN) CPT-4: 55556 09/15/2013 ESR (RBC SED RATE AU TOMATED) CPT-4: 73624 09/15/2013 ROUTINE VENIPUNCTURE CPT-4: 31866 09/15/2013 URINALYSIS NONAUTO W /O SCOPE CPT-4: 20627 08/16/2013 C URINE RT CPT-4: 6581038 08/16/2013 C URINE RT (URINE CU LTURE/COLONY COUNT) CPT-4: 13964 08/16/2013 ROUTINE VENIPUNCTURE CPT-4: 06379 04/26/2013 Vital Signs Date Vital 12/01/2016 Blood Pressure 1: 140/88 Code: 8480-6 BMI: 39.6 Code: 16231-8 Heart Rate 1: 101 bpm Height: 5'5" SpO2: 97% Weight: 238 lbs 08/05/2016 Blood Pressure 1: 134/82 Code: 8480-6 Heart Rate 1: 113 bpm Height: 5'5" SpO2: 98% 07/22/2016 Blood Pressure 1: 142/84 Code: 8480-6 BMI: 39.6 Code: 80598-0 Heart Rate 1: 103 bpm Height: 5'5" SpO2: 97% Weight: 238 lbs 03/06/2016 Blood Pressure 1: 138/86 Code: 8480-6 Heart Rate 1: 100 bpm SpO2: 96% Weight: 246 lbs 12/07/2015 Blood Pressure 1: 140/78 Code: 8480-6 BMI: 40.8 Code: 42514-7 Heart Rate 1: 97 bpm Height: 5'6" SpO2: 98% Weight: 250 lbs 11/09/2015 Blood Pressure 1: 118/84 Code: 8480-6 BMI: 40.7 Code: 16283-2 Heart Rate 1: 85 bpm Height: 5'6" SpO2: 98% Weight: 249 lbs 08/17/2015 Blood Pressure 1: 122/82 Code: 8480-6 BMI: 39.4 Code: 85067-8 Heart Rate 1: 86 bpm Height: 5'6" SpO2: 95% Weight: 241 lbs 07/24/2015 Blood Pressure 1: 118/76 Code: 8480-6 BMI: 39.9 Code: 76717-7 Heart Rate 1: 97 bpm Height: 5'6" SpO2: 96% Weight: 244 lbs 07/16/2015 Blood Pressure 1: 158/80 Code: 8480-6 Blood Pressure 1: 120/86 Code: 8480-6 Heart Rate 1: 105 bpm Height: 5'6" SpO2: 98% Weight: 06/12/2015 Blood Pressure 1: 128/82 Code: 8480-6 BMI: 39.9 Code: 28172-5 Heart Rate 1: 89 bpm Height: 5'6" SpO2: 98% Weight: 244 lbs 03/08/2015 Blood Pressure 1: 130/86 Code: 8480-6 Heart Rate 1: 98 bpm Height: 5'6" SpO2: 97% Weight: 12/29/2014 Blood Pressure 1: 138/88 Code: 8480-6 BMI: 39.2 Code: 63838-3 Heart Rate 1: 109 bpm Height: 5'6" SpO2: 97% Weight: 240 lbs 11/17/2014 Blood Pressure 1: 170/98 Code: 8480-6 BMI: 39.7 Code: 03320-4 Heart Rate 1: 92 bpm Height: 5'6" SpO2: 98% Weight: 243 lbs 05/16/2014 Blood Pressure 1: 130/82 Code: 8480-6 BMI: 39.2 Code: 98270-1 Heart Rate 1: 88 bpm Height: 5'6" Weight: 240 lbs 04/04/2014 Blood Pressure 1: 146/92 Code: 8480-6 Blood Pressure 2: 136/86 Code: 8480-6 BMI: 39.9 Code: 14108-2 Heart Rate 1: 68 bpm Height: 5'6" Weight: 244 lbs 12/01/2013 Blood Pressure 1: 142/80 Code: 8480-6 BMI: 38.4 Code: 10459-3 Heart Rate 1: 80 bpm Height: 5'6" Weight: 235 lbs 10/10/2013 Blood Pressure 1: 128/88 Code: 8480-6 BMI: 38.7 Code: 64306-5 Heart Rate 1: 88 bpm Height: 5'6" Weight: 237 lbs 09/15/2013 Blood Pressure 1: 112/74 Code: 8480-6 BMI: 39.0 Code: 04188-0 Heart Rate 1: 80 bpm Height: 5'6" Weight: 239 lbs 08/16/2013 Blood Pressure 1: 124/64 Code: 8480-6 BMI: 39.0 Code: 44762-7 Heart Rate 1: 88 bpm Height: 5'6" Weight: 239 lbs 06/06/2013 Blood Pressure 1: 120/72 Code: 8480-6 BMI: 37.9 Code: 39016-8 Heart Rate 1: 84 bpm Height: 5'6" Weight: 232 lbs 04/26/2013 Blood Pressure 1: 148/86 Code: 8480-6 BMI: 37.7 Code: 24848-6 Heart Rate 1: 84 bpm Height: 5'6" Weight: 231 lbs 04/14/2013 Blood Pressure 1: 148/92 Code: 8480-6 BMI: 38.2 Code: 58615-0 Heart Rate 1: 88 bpm Height: 5'6" Respiratory Rate: 16 bpm Weight: 234 lbs Functional Status No Functional Status data History of Present Illness Symptom Name Status Resu lt Effective Date Notes joint complaint Quality aching 12/01/2016 None joint [...] Encounters Encounter Performer Loca tion Codes Date ([id number]) 86365 EST. P ATIENT, LEVEL IV Diagnosis: Essential [...] Diagnosis: Fever, unspecified[ICD10: R50.9] Katy Manzanares MD, [facility] CPT- 4: 37624 12/01/2016 ([id number]) 71492 EST. P ATIENT, LEVEL III Diagnosis: Impaired fasting glucose[ICD10: R73.01] Diagnosis: Low back pain[ICD10: M54.5] Diagnosis: Generalized anxiety disorder[ICD10: F41.1] Katy Manzanares MD, [facility] CPT-4: 09919 08/05/2016 ([id number]) 64658 EST. P ATIENT, LEVEL III Diagnosis: Essential (primary) hypertension[ICD10: I10] Diagnosis: Radiculopathy, lumbar region[ICD10: M54.16] Katy Manzanares MD, [facility] CPT-4: 29952 07/22/2016 ([id number]) Ganesh coats no charge Diagnosis: Dysuria[ICD10: R30.0] Ally Manzanares MD, [facility] CPT-4: 46994 06/12/2016 ([id number]) 85722 EST. P ATIENT, LEVEL IV Diagnosis: Type 2 diabetes mellitus without complications[ICD10: E11.9] Diagnosis: Vitamin D deficiency, unspecified[ICD10: E55.9] Diagnosis: Generalized anxiety disorder[ICD10: F41.1] Diagnosis: Essential (primary) hypertension[ICD10: I10] Diagnosis: Radiculopathy, cervical region[ICD10: M54.12] Diagnosis: Cardiac murmur, unspecified[ICD10: R01.1] Katy Manzanares MD, [facility] CPT-4: 25333 03/06/2016 ([id number]) 45794 EST. P ATIENT, LEVEL III Diagnosis: Generalized anxiety disorder[ICD10: F41.1] Diagnosis: Major depressive disorder, recurrent, in partial remission[ICD10: F33.41] [facility] CPT-4: 47561 12/07/2015 ([id number]) 92413 EST. P ATIENT, LEVEL IV Diagnosis: Essential (primary) hypertension[ICD10: I10] Diagnosis: Generalized anxiety disorder[ICD10: F41.1] Diagnosis: Other obesity due to excess calories[ICD10: E66.09] Katy Manzanares MD, [facility] CPT-4: 02802 11/09/2015 ([id number]) 78734 EST. P ATIENT, LEVEL III Diagnosis: Urinary tract infection, site not specified[ICD10: N39.0] Katy Manzanares MD, [facility] CPT-4: 58583 08/17/2015 ([id number]) 96123 EST. P ATIENT, LEVEL III Diagnosis: Generalized anxiety disorder[ICD10: F41.1] Diagnosis: Major depressive disorder, recurrent, moderate[ICD10: F33.1] Katy Manzanares MD, [facility] CPT-4: 15229 07/24/2015 ([id number]) 04112 EST. P ATIENT, LEVEL IV Diagnosis: Myalgia[ICD10: M79.1] Diagnosis: Low back pain[ICD10: M54.5] Diagnosis: Cervicalgia[ICD10: M54.2] Diagnosis: Essential (primary) hypertension[ICD10: I10] Diagnosis: Vitamin D deficiency, unspecified[ICD10: E55.9] Diagnosis: Generalized anxiety disorder[ICD10: F41.1] Katy Manzanares MD, [facility] CPT-4: 11919 07/16/2015 ([id number]) 31638 EST. P ATIENT, LEVEL IV Diagnosis: Cervicalgia[ICD10: M54.2] Diagnosis: Essential (primary) hypertension[ICD10: I10] Diagnosis: Low back pain[ICD10: M54.5] Diagnosis: Radiculopathy, cervical region[ICD10: M54.12] Katy Manzanares MD, [facility] CPT-4: 72412 06/12/2015 74919 EST. PATIENT, LEVEL III Diagnosis: Sacroiliitis, not elsewhere classified[ICD10: M46.1] Diagnosis: Low back pain[ICD10: M54.5] Diagnosis: Pain in left hip[ICD10: M25.552] Diagnosis: Pain in right hip[ICD10: M25.551] Samantha Manzanares MD, [facility] CPT-4: 60817 03/08/2015 41102 EST. PATIENT, LEVEL III Diagnosis: Anxiety disorder due to known physiological condition[ICD10: F06.4] Diagnosis: Mood disorder due to known physiological condition with depressive features[ICD10: F06.31] Diagnosis: Flushing[ICD10: R23.2] Samantha Manzanares MD, [facility] CPT-4: 96064 12/29/2014 ([id number]) 28018 EST. P ATIENT, LEVEL IV Diagnosis: ESSENTIAL HYPERTENSION[ICD9: 401.9] Diagnosis: Anxiety[ICD9: 300.00] Diagnosis: Depression[ICD9: 311] Katy Manzanares MD, [facility] CPT-4: 56503 11/17/2014 ([id number]) 10701 EST. P ATIENT, LEVEL IV Diagnosis: Anxiety[ICD9: 300.00] Diagnosis: Depression[ICD9: 311] Diagnosis: DIABETES TYPE II[ICD9: 250.00] Diagnosis: Vitamin D deficiency[ICD9: 268.9] Diagnosis: ESSENTIAL HYPERTENSION[ICD9: 401.9] Diagnosis: ABNORMAL WEIGHT GAIN[ICD9: 783.1] Katy Manzanares MD, [facility] CPT- 4: 32504 05/16/2014 ([id number]) 39347 EST. P ATIENT, LEVEL IV Diagnosis: ESSENTIAL HYPERTENSION[ICD9: 401.9] Diagnosis: Anxiety[ICD9: 300.00] Diagnosis: Depression[ICD9: 311] Katy Manzanares MD, [facility] CPT-4: 17940 04/04/2014 ([id number]) 63733 EST. P ATIENT, LEVEL IV Diagnosis: Diarrhea[ICD9: 787.91] Diagnosis: Epigastric pain[ICD9: 789.06] Diagnosis: ESOPHAGEAL REFLUX[ICD9: 530.81] Diagnosis: Blood in stool[ICD9: 578.1] Katy Manzanares MD, [facility] CPT- 4: 95598 12/01/2013 ([id number]) 99036 EST. P ATIENT, LEVEL IV Diagnosis: Vitamin D deficiency[ICD9: 268.9] Diagnosis: DIABETES TYPE II[ICD9: 250.00] Diagnosis: Depression[ICD9: 311] Diagnosis: Insomnia[ICD9: 780.52] Ally Manzanares MD, [facility] CPT-4: 20068 10/10/2013 ([id number]) PREV VISIT E ST AGE 40-64 Diagnosis: Well woman exam with routine gynecological exam[ICD9: V72.31] Diagnosis: JOINT PAIN-UNSPEC[ICD9: 719.40] Diagnosis: Nasal septal ulcer[ICD9: 478.19] Diagnosis: Swelling of extremity[ICD9: 729.81] Diagnosis: Pleuritic chest pain[ICD9: 786.52] Katy Manzanares MD, [facility] CPT-4: 44066 09/15/2013 ([id number]) 87429 EST. P ATIENT, LEVEL IV Diagnosis: DM W/O COMPLICATION TYPE II, UNCONTROLLED[SNOMED: 39383973] Diagnosis: Urinary tract infection[ICD9: 599.0] Diagnosis: DEPRESSIVE DISORDER NEC[ICD9: 311] Diagnosis: Anxiety[ICD9: 300.00] Diagnosis: Insomnia[ICD9: 780.52] Diagnosis: ANEMIA[ICD9: 285.9] Katy Manzanares MD, [facility] CPT-4: 03919 08/16/2013 ([id number]) 31451 EST. P ATIENT, LEVEL III Diagnosis: DM w/o complication type II, uncontrolled[SNOMED: 83435749] [facility] CPT-4: 90811 06/06/2013 ([id number]) 15890 EST. P ATIENT, LEVEL III Diagnosis: DIABETES TYPE II[SNOMED: 568636255] Ally Manzanares MD, [facility] CPT- 4: 18961 04/26/2013 ([id number]) OFFICE VISI T, [facility] - LEVEL 4 Diagnosis: Elevated blood pressure[ICD9: 796.2] Diagnosis: Depression[ICD9: 311] Diagnosis: Elevated alkaline phosphatase level[ICD9: 790.5] Diagnosis: Elevated glucose[ICD9: 790.29] [facility] CPT-4: 20499 04/14/2013 Plan of Care Planned Activity Notes C odes Status Date Appointment: Lab Draw 12/08/2016 Patient Education: Patient [...] tick panel 12/01/2016 Appointment: Katy Do WPtel: [phone] (30 min) Complex 12/01/2016 Patient Education: Patient Medication Summary Completed 12/01/2016 Patient Education: Obesity Completed 12/01/2016 Care Plan: Lymes Disease Antibobies Igg/ Igm Pending 12/01/2016 Visit Plan: Elevated glucose-check Hgb A1C Low back pain-will write letter on patient's behalf for insurance precertification Etcupbj-lezijlfqfy-gnay controlled-no changes 08/05/2016 Appointment: Katy Do WPtel: [address] [place], [place] [phone] (30 min) Complex 08/05/2016 Patient Education: Patient [...] next month. 07/22/2016 App[facility]ment: [phone] (15 min) Moderate 07/22/2016 Patient Education: [...] murmur-schedule Echo 03/06/2016 Appointment: Katy Do WPtel: [phone] (30 min) Complex 03/06/2016 Patient Education: Patient [...] current medications. 12/07/2015 Appointment: Katy Do WPtel: [phone] (30 min) Complex 12/07/2015 Patient Education: Patient [...] weight check. 11/09/2015 Appointment: Katy Do WPtel: [phone] (30 min) Complex 11/09/2015 Patient Education: Patient Medication Summary Completed 11/09/2015 Patient Education: Obesity Completed 11/09/2015 Care Plan: BMI Above normal followup LOLI F-MGMT EDUC & TRAIN 1 PT Pending 11/09/2015 Appointment: Katy Do WPtel: [phone] [phone] (30 min) Complex 11/08/2015 Appointment: Katy Do WPtel: [phone] [phone] (15 min) Moderate 08/23/2015 Visit Plan: Urinary [...] D level 07/24/2015 Appointment: Katy Do WPtel: [phone] (30 min) Complex 07/24/2015 Patient Education: Patient [...] Completed 07/16/2015 Visit Plan: Hypertension - well leighton briceño - continue with current medications, continue with no added salt diet. Pt has been encouraged to exercise daily. The pt has been advised to call the office if there are any acute concerns about change in blood pressure readings at home. Neck mevl-wratshktnskjf-bcpeq to Dr Mckee for evaluation-patient has been [...] Moderate 09/04/2014 Appointment: [phone] Follow up 07/07/2014 Visit Plan: Anxiety and [...] Hypertension Completed 05/16/2014 Appointment: Katy Do WPtel: [phone] [phone] Follow up 05/09/2014 Visit Plan: Hypertension [...] this patient. 04/04/2014 [facility]ment[phone] Follow up 04/04/2014 Patient Education: Patient [...] 12/01/2013 Care Plan: Referral Order SNOMED-CT : [id number] Ordered 12/01/2013 Visit Plan: Diabetes Mellitus - [...] for insomnia. 10/10/2013 Appointment: [phone] [facility] [place] Follow up 10/10/2013 Patient Education: Patient Medication Summary Completed 10/10/2013 Appointment: [facility]Ptel[facility] [phone] [facility] [place] Lab Draw 10/06/2013 Patient Education: Patient Medication Summary Completed 10/06/2013 Appointment: [facility]el[phone] [facility] Follow up 10/04/2013 Visit Plan: Well Adult [...] or prn. Joint pain-pleuritic chest pain-swelling of rahh-arazwvi-weirjdw for autoimmune disease such as lupus-plan to check labs and proceed as indicated. Instructed patient we will call her with results of labs. 09/15/2013 Appointment: Katy Do WPtel: [phone] Pap Only 09/15/2013 Patient Education: Patient Medication [...] iron panel 08/16/2013 Appointment: Katy Do WPtel: [phone] [phone] Follow up 08/16/2013 Patient Education: Patient Medication Summary Completed 08/16/2013 Care Plan: C URINE RT Pending 08/16/2013 Appointment: Katy Do WPtel: [phone] [phone] Follow up 08/09/2013 Appointment: Ally Manzanares WPtel: [address] [place], [place] [phone] Follow up 08/08/2013 Visit Plan: Diabetes Mellitus [...] glucose control. 06/06/2013 Appointment: Ally Manzanares WPtel: [address] [place], [place] [phone] Follow up 06/06/2013 Patient Education: Patient Medication Summary Completed 06/06/2013 Appointment: Ally Manzanares WPtel: [address] [place], [place] [phone] Follow up 05/12/2013 Visit Plan: Diabetes Mellitus [...] glucose control. 04/26/2013 Appointment: Katy Do WPtel: [address] [place], [place] [phone] Diabetic education 04/26/2013 Patient Education: Patient Medication [...] and hgba1c. 04/14/2013 Appointment: [facility]Ptel[phone] [facility] [place] New Patient 04/14/2013 Patient Education: Patient Medication Summary Completed 04/14/2013 Appointment: [facility]Ptel[facility] [phone] [facility] New Patient 04/05/2013 Referral: Dr Trujillo Referral [...] not improve or if they worsen. . Hypertension - wel l controlled - continue with current medications, continue with no added salt diet. Pt has been encouraged to exercise daily. The pt has been advised to call the office if there are any acute concerns about change in blood pressure readings at home. Neck trhy-ewpbfalcghrgm-sorvf to Dr Mckee for evaluation-patient has been [...] Dr Mckee for her neck first. . Elevated Blood Pr essure - without [...] up in 2 months for weight check pt needs to take VIT OSPINA D [...] for counseling Vitamin D deficiency-check labs . Chronic Depression and anxiety - the [...] of plan. HOLD METFORMIN X 1 W YUROK RESTART PANTOPRAZOLE DAILY CONTINUE CARAFATE BEFORE MEALS [...] or prn. Joint pain-pleuritic chest pain-swelling of bzaz-xyjthpr-pwstwnd for autoimmune disease such as lupus-plan to [...] prescribed for this patient. SAMPLES OF FETZIMA CHECK LABS INCREASE WELLBUTRIN TO 300MG DAILY [...] hands-intermittent fevers-check inflammatory labs including tick panel CHECK LABS schedule ECHO . Hypertension - [...] pills daily keep metformin at current dose. 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 . Diabetes Mellitus - controlled - per lokesh bauer FSBS reports. I have recommended for the [...] keep trazodone for PRN use for insomnia. [phone] Samuels and call Sandee to fish bait picker a copy . Elevated glucose-check Hgb A1C Low back pain-will write letter on patient's behalf for insurance precertification Xadzhac-cdfgamhblo-dgfy controlled-no changes Decrease fetzima to 20 mg [...] is to call for acute concerns. . Diabetes Mellitus - new diagnosis- I [...] to allow for greater blood glucose control. DECREASE LEXAPRO TO EVERY OTHER DAY X [...]
--- OUTSIDE RECORDS SUMMARY | 2019-03-04 02:58 | XMS REPORT ---
Author Author Sandee ALVAREZ Organization [facility] Address [address] [place] [address] Care Team Providers Care Exhaust Equipment Operator Name Role Phone HARLAN ALVAREZ Unavailable PROBLEMS Unknown Problems ALLERGIES No Information ENCOUNTERS Encounter Location Date Diagnosis [facility] [address] [facility] [id number] [address] [place] [id number] July, Need for hepatitis C screeni ng test Z11.59 [facility] [address] [facility] [id number] [address], [place] [address] Nov, Strep pharyngitis J02.0 IMMUNIZATIONS No Known Immunizations SOCIAL HISTORY Never Assessed REASON FOR VISIT Hep C G PLAN OF CARE VITAL SIGNS MEDICATIONS Unknown Medications RESULTS Name Result Date Reference Range HEP C ANTIBODY W/ REFLEX HCV 2017-07-28 HEPATITIS C ANTIBODY NON-REACTIVE NON-REACTIV E SIGNAL TO CUT-OFF 0.03 <1.00 PROCEDURES Procedure Date Ordered Result Body Site HEPATITIS C AB TEST July 28, 2017 VENIPUNCT, ROUTINE* July 28, 2017 INSTRUCTIONS MEDICATIONS ADMINISTERED No Known Medications MEDICAL (GENERAL) HISTORY Type Description Date Medical History hypertension Medical History anxiety Medical History UNKNOWN MEDICATION LIST Medical History Hiatal hernia Surgical History cholecystectomy Surgical History Back surgery Surgical History Disk replaced in neck Surgical History hysterectomy
--- OUTSIDE RECORDS SUMMARY | 2019-03-04 02:59 | XMS REPORT | Continuity of Care Document ---
Author Organization Unknown Address Unknown Phone Unavailable Allergies Active Description Code Type Severity Reaction Onset Reported/Identified Relationship to Patient Clinical Status Yes No Known Drug Allergies [id number] Drug Allergy Mild N/A 03/01/2009 Medications There is no data. 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 08/02/2010 Ot 782.1 NONS PECIF SKIN ERUPT NEC 01/19/2011 Ot 789.03 ABD OMINAL PAIN, RIGHT LOWER QUADRANT 01/19/2011 Ot 789.04 ABD OMINAL PAIN, LEFT LOWER QUADRANT 01/19/2011 Ot 790.5 ABN SERUM ENZY LEVEL NEC 03/18/2011 Ot 681.02 GEENA JUICE OF FINGER 06/05/2011 Ot 790.5 ABN SERUM ENZY LEVEL NEC 06/15/2011 Ot 278.00 OBE SITY, NOS 06/15/2011 Ot 300.00 ANX IETY STATE NOS 06/15/2011 Ot 414.01 COR ONARY ATHEROSCLEROSIS OF [place] CORON 06/15/2011 Ot 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 06/15/[address] PAIN NEC 06/15/2011 Ot V12.59 HX- CIRCULATORY SYST DIS,NEC 06/15/2011 Ot V58.69 OTH MED,LT,CURRENT USE 06/15/2011 Ot V85.42 BOD Y MASS INDEX 45.0-49.9, ADULT 01/09/2012 Ot 599.0 URIN TRACT INFECTION NOS 01/09/2012 Ot 789.09 ABD OMINAL PAIN, OTHER SPECIFIED SITE 05/08/2012 Ot 723.1 CERV ICALGIA 05/08/2012 Ot 723.4 BRAC HIAL NEURITIS NOS 05/27/2012 Ot 723.1 CERV ICALGIA 06/15/2012 Ot 723.0 CERV ICAL SPINAL STENOSIS 03/16/2013 FREDO VERONICA, BETTY Steel Ot 786.05 SHORTNESS OF BREATH 03/16/2013 FREDO VERONICA, BETTY Steel Ot 786.09 RESPIRATORY ABNORM NEC 03/31/2013 GATO SALAS DO Ot 327. 23 OBSTRUCTIVE SLEEP APNEA (ADULT) (PEDIATR 04/09/2013 JACQUELINE BELLE DO Ot 338.29 OTHER CHRONIC PAIN 04/09/2013 JACQUELINE BELLE DO Ot 847.0 SPRAIN OF NECK 04/09/2013 JACQUELINE BELLE DO Ot 847.1 SPRAIN THORACIC REGION 04/09/2013 JACQUELINE BELLE DO Ot 847.2 SPRAIN LUMBAR REGION 04/09/2013 JACQUELINE BELLE DO Ot 920 CONTUSION FACE/SCALP/NCK 04/09/2013 JACQUELINE BELLE DO Ot 959.01 HEAD INJURY, NOS 04/09/2013 JACQUELINE BELLE DO Ot E000.8 OTHER EXTERNAL CAUSE STATUS 04/09/2013 JACQUELINE BELLE DO Ot E013.9 OTHER HOUSEHOLD MAINTENANCE 04/09/2013 JACQUELINE BELLE DO Ot E849.6 ACCIDENT IN PUBLIC BLDG 04/09/2013 JACQUELINE BELLE DO Ot E885.9 FALL FROM SLIPPING, TRIPPING, OR STUMBLI 04/21/2013 GATO SALAS DO Ot 327. 23 OBSTRUCTIVE SLEEP APNEA (ADULT) (PEDIATR 06/07/2013 OSCAR VERONICA, CARLOS Lo Ot 681.9 CELLULITIS OF DIGIT NOS 06/07/2013 OSCAR VERONICA, CARLOS Lo Ot 729.81 SWELLING OF LIMB 08/30/2013 SAMUEL VERONICA, JIM Enrique Ot 250. 00 DIAB ELIO WO COMPL, TYPE II OR UNSPEC TY 08/30/2013 JIM BAKER MD Ot 278. 00 OBESITY, NOS 08/30/2013 JIM BAKER MD Ot 300. 00 ANXIETY STATE NOS 08/30/2013 JIM BAKER MD Ot 327. 23 OBSTRUCTIVE SLEEP APNEA (ADULT) (PEDIATR 08/30/2013 JIM BAKER MD Ot 496 CHR AIRWAY OBSTRUCT NEC 08/30/2013 JIM BAKER MD Ot 530. 81 ESOPHAGEAL REFLUX 08/30/2013 JIM BAKER MD Ot 782. 3 EDEMA 08/30/2013 JIM BAKER MD Ot 786. 05 SHORTNESS OF BREATH 08/30/2013 JIM BAKER MD Ot 786. 09 RESPIRATORY ABNORM NEC 08/30/2013 JIM BAKER MD Ot 786. 50 CHEST PAIN NOS 12/23/2013 TARIQ GUTIERREZ MD Ot 455.0 INT HEMORRHOID W/O COMPL 12/23/2013 TARIQ GUTIERREZ MD Ot 530.11 REFLUX ESOPHAGITIS 12/23/2013 TARIQ GUTIERREZ MD Ot 535.50 UNSP GASTRITIS GASTRODUODENITIS W/O ME 12/23/2013 TARIQ GUTIERREZ MD Ot 553.3 DIAPHRAGMATIC HERNIA 12/23/2013 TARIQ GUTIERREZ MD Ot 569.0 ANAL RECTAL POLYP 03/07/2014 JACQUELINE BELLE DO Ot 490 BRONCHITIS NOS 03/07/2014 JACQUELINE BELLE DO Ot 786.2 COUGH 03/07/2014 JACQUELINE BELLE DO Ot 786.52 PAINFUL RESPIRATION 04/19/2014 WAYNE SABA SOCIAL SECURITY SPECIALIST Ot 789.00 08/31/2014 FREDO VERONICA, BETTY Steel Ot 681.00 CELLULITIS, FINGER NOS 09/04/2014 Ot 724.02 09/04/2014 Ot 368.9 09/04/2014 Ot 784.0 09/04/2014 Ot 722.0 09/04/2014 Ot V72.84 09/04/2014 NANDA HERNANDEZ DO Ot 611. 71 09/04/2014 GATO SALAS DO Ot 278. 00 09/04/2014 GATO SALAS DO Ot 296. 90 09/04/2014 GATO SALAS DO Ot 780. 54 09/04/2014 MARITZA BERNARD GATO M Ot 786. 09 09/04/2014 MARITZA DO, GATO M Ot 278. 00 09/04/2014 MARITZA DO, GATO M Ot 780. 54 09/04/2014 MARITZA DO, GATO M Ot 786. 09 09/04/2014 PINKY VERONICA, JONNATHAN Hyman Ot 256.31 09/04/2014 PINKY VERONICA, JONNATHAN A Ot 31 1 09/04/2014 PINKY VERONICA, JONNATHAN Hyman Ot 790.29 09/04/2014 JONNATHAN VANCE MD Ot V58.69 09/04/2014 SIDDHARTHA ANDERSON SOCIAL SECURITY SPECIALIST Ot 250.00 09/04/2014 SIDDHARTHA ANDERSON SOCIAL SECURITY SPECIALIST Ot 285.9 09/04/2014 SIDDHARTHA ANDERSONP Ot V72.62 09/04/2014 TARIQ GUTIERREZ MD Ot V72.84 09/04/2014 WAYNE SABA SOCIAL SECURITY SPECIALIST Ot 789.00 09/24/2014 Ot 724.02 09/24/2014 Ot 368.9 09/24/2014 Ot 784.0 09/24/2014 Ot 722.0 09/24/2014 Ot V72.84 09/24/2014 NANDA HERNANDEZ DO L Ot 611. 71 09/24/2014 MARITZA DO, GATO M Ot 278. 00 09/24/2014 MARITZA DO, GATO M Ot 296. 90 09/24/2014 MARITZA DO, GATO M Ot 780. 54 09/24/2014 MARITZA DO, GATO M Ot 786. 09 09/24/2014 MARITZA DO, GATO M Ot 278. 00 09/24/2014 MARITZA DO, GATO M Ot 780. 54 09/24/2014 MARITZA DO, GATO M Ot 786. 09 09/24/2014 PINKY VERONICA, JONNATHAN A Ot 256.31 09/24/2014 PINKY VERONICA, JONNATHAN Hyman Ot 31 1 09/24/2014 PINKY VERONICA, JONNATHAN Hyman Ot 790.29 09/24/2014 JONNATHAN VANCE MD Ot V58.69 09/24/2014 SIDDHARTHA ANDERSON SOCIAL SECURITY SPECIALIST Ot 250.00 09/24/2014 SIDDHARTHA ANDERSON SOCIAL SECURITY SPECIALIST Ot 285.9 09/24/2014 SIDDHARTHA ANDERSON SOCIAL SECURITY SPECIALIST Ot V72.62 09/24/2014 BRENDA VERONICA, NATHALIEAAKI Ot V72.84 09/24/2014 WAYNE SABA SOCIAL SECURITY SPECIALIST Ot 789.00 09/24/2014 CARLOS VERONICA, SHAI Hines Ot 726.71 ACHILLES TENDINITIS 09/24/2014 CARLOS VERONICA, SHAI Hines Ot 729 .5 PAIN IN LIMB 10/07/2014 Ot 724.02 10/07/2014 Ot 368.9 10/07/2014 Ot 784.0 10/07/2014 Ot 722.0 10/07/2014 Ot V72.84 10/07/2014 NANDA HERNANDEZ DO Ot 611. 71 10/07/2014 GATO SALAS DO Ot 278. 00 10/07/2014 GATO SALAS DO Ot 296. 90 10/07/2014 GATO SALAS DO Ot 780. 54 10/07/2014 GATO SALAS DO Ot 786. 09 10/07/2014 GATO SALAS DO Ot 278. 00 10/07/2014 GATO SALAS DO Ot 780. 54 10/07/2014 GATO SALAS DO Ot 786. 09 10/07/2014 PINKY VERONICA, JONNATHAN Hyman Ot 256.31 10/07/2014 PINKY VERONICA, JONNATHAN Hyman Ot 31 1 10/07/2014 PINKY VERONICA, JONNATHAN Hyman Ot 790.29 10/07/2014 PINKY VERONICA, JONNATHAN Hyman Ot V58.69 10/07/2014 SIDDHARTHA ANDERSON SOCIAL SECURITY SPECIALIST Ot 250.00 10/07/2014 SIDDHARTHA ANDERSON SOCIAL SECURITY SPECIALIST Ot 285.9 10/07/2014 SIDDHARTHA ANDERSON SOCIAL SECURITY SPECIALIST Ot V72.62 10/07/2014 BRENDA VERONICA, TARIQ Ot V72.84 10/07/2014 WAYNE SABA SOCIAL SECURITY SPECIALIST Ot 789.00 10/09/2014 Ot 724.02 10/09/2014 Ot 368.9 10/09/2014 Ot 784.0 10/09/2014 Ot 722.0 10/09/2014 Ot V72.84 10/09/2014 NANDA HERNANDEZ DO Ot 611. 71 10/09/2014 GATO SALAS DO Ot 278. 00 10/09/2014 MARITZA DO, GATO M Ot 296. 90 10/09/2014 MARITZA DO, GATO M Ot 780. 54 10/09/2014 MARITZA DO, GATO M Ot 786. 09 10/09/2014 MARITZA DO, GATO M Ot 278. 00 10/09/2014 MARITZA DO, GATO M Ot 780. 54 10/09/2014 MARITZA DO, GATO M Ot 786. 09 10/09/2014 PINKY VERONICA, JONNATHAN Hyman Ot 256.31 10/09/2014 PINKY VERONICA, JONNATHAN Hyman Ot 31 1 10/09/2014 PINKY VERONICA, JONNATHAN Hyman Ot 790.29 10/09/2014 JONNATHAN VANCE MD Ot V58.69 10/09/2014 SIDDHARTHA ANDERSON SOCIAL SECURITY SPECIALIST Ot 250.00 10/09/2014 SIDDHARTHA ANDERSON SOCIAL SECURITY SPECIALIST Ot 285.9 10/09/2014 SIDDHARTHA ANDERSON SOCIAL SECURITY SPECIALIST Ot V72.62 10/09/2014 TARIQ GUTIERREZ MD Ot V72.84 10/09/2014 WAYNE SABA SOCIAL SECURITY SPECIALIST Ot 789.00 12/21/2014 Ot 724.02 12/21/2014 Ot 368.9 12/21/2014 Ot 784.0 12/21/2014 Ot 722.0 12/21/2014 Ot V72.84 12/21/2014 DAVID BERNARDNANDA aRshad Ot 611. 71 12/21/2014 MARITZA DO, GATO M Ot 278. 00 12/21/2014 MARITZA DO, GATO M Ot 296. 90 12/21/2014 MARITZA DO, GATO M Ot 780. 54 12/21/2014 MARITZA DO, GATO M Ot 786. 09 12/21/2014 MARITZA DO, GATO M Ot 278. 00 12/21/2014 MARITZA DO, GATO M Ot 780. 54 12/21/2014 MARITZA DO, GATO M Ot 786. 09 12/21/2014 PINKY VERONICA, JONNATHAN A Ot 256.31 12/21/2014 PINKY VERONICA, JONNATHAN Hyman Ot 31 1 12/21/2014 PINKY VERONICA, JONNATHAN A Ot 790.29 12/21/2014 PINKY VERONICA, JONNATHAN Hyman Ot V58.69 12/21/2014 SIDDHARTHA ANDERSON SOCIAL SECURITY SPECIALIST Ot 250.00 12/21/2014 SIDDHARTHA ANDERSON SOCIAL SECURITY SPECIALIST Ot 285.9 12/21/2014 SIDDHARTHA ANDERSON SOCIAL SECURITY SPECIALIST Ot V72.62 12/21/2014 TARIQ GUTIERREZ MD Ot V72.84 12/21/2014 WAYNE SABA SOCIAL SECURITY SPECIALIST Ot 789.00 12/21/2014 NE BURGOS HUMAN RESOURCE OFFICER Ot M76.61 ACHILLES TENDINITIS, RIGHT LEG 12/21/2014 NE BURGOS HUMAN RESOURCE OFFICER Ot M79.661 PAIN IN RIGHT LOWER LEG 12/21/2014 Ot 724.02 12/21/2014 Ot 368.9 12/21/2014 Ot 784.0 12/21/2014 Ot 722.0 12/21/2014 Ot V72.84 12/21/2014 DAVID BERNARD NANDA L Ot 611. 71 12/21/2014 MARITZA BERNARD GATO M Ot 278. 00 12/21/2014 GATO SALAS DO M Ot 296. 90 12/21/2014 MARITZA BERNARD GATO M Ot 780. 54 12/21/2014 MARITZA DO GATO M Ot 786. 09 12/21/2014 MARITZA DO GATO M Ot 278. 00 12/21/2014 MARITZA DO GATO M Ot 780. 54 12/21/2014 MARITZA DO GATO M Ot 786. 09 12/21/2014 PINKY VERONICA, JONNATHAN Hyman Ot 256.31 12/21/2014 PINKY VERONICA, JONNATHAN Hyman Ot 31 1 12/21/2014 PINKY VERONICA, JONNATHAN Hyman Ot 790.29 12/21/2014 PINKY VERONICA, JONNATHAN Hyman Ot V58.69 12/21/2014 SIDDHARTHA ANDERSON SOCIAL SECURITY SPECIALIST Ot 250.00 12/21/2014 SIDDHARTHA ANDERSON SOCIAL SECURITY SPECIALIST Ot 285.9 12/21/2014 SIDDHARTHA ANDERSON SOCIAL SECURITY SPECIALIST Ot V72.62 12/21/2014 TARIQ GUTIERREZ MD Ot V72.84 12/21/2014 WAYNE SABA SOCIAL SECURITY SPECIALIST Ot 789.00 03/18/2015 Ot 724.02 03/18/2015 Ot 368.9 03/18/2015 Ot 784.0 03/18/2015 Ot 722.0 03/18/2015 Ot V72.84 03/18/2015 COSENS DO, NANDA L Ot 611. 71 03/18/2015 MARITZA DO, GATO M Ot 278. 00 03/18/2015 MARITZA DO, GATO M Ot 296. 90 03/18/2015 MARITZA DO, GATO M Ot 780. 54 03/18/2015 MARITZA DO, GATO M Ot 786. 09 03/18/2015 MARITZA DO, GATO M Ot 278. 00 03/18/2015 MARITZA DO, GATO M Ot 780. 54 03/18/2015 MARITZA DO, GATO M Ot 786. 09 03/18/2015 PINKY VERONICA, JONNATHAN Hyman Ot 256.31 03/18/2015 PINKY VERONICA, JONNATHAN Hyman Ot 31 1 03/18/2015 PINKY VERONICA, JONNATHAN Hyman Ot 790.29 03/18/2015 PINKY VERONICA, JONNATHAN Hyman Ot V58.69 03/18/2015 SIDDHARTHA ANDERSON SOCIAL SECURITY SPECIALIST Ot 250.00 03/18/2015 SIDDHARTHA ANDERSON SOCIAL SECURITY SPECIALIST Ot 285.9 03/18/2015 SIDDHARTHA ANDERSON SOCIAL SECURITY SPECIALIST Ot V72.62 03/18/2015 BRENDA VERONICA, TARIQ Ot V72.84 03/18/2015 WAYNE SABA SOCIAL SECURITY SPECIALIST Ot 789.00 03/18/2015 ANNY THAKKAR HUMAN RESOURCE OFFICER Ot R0 5 03/18/2015 ANNY THAKKAR HUMAN RESOURCE OFFICER Ot R06.02 03/19/2015 Ot 724.02 03/19/2015 Ot 368.9 03/19/2015 Ot 784.0 03/19/2015 Ot 722.0 03/19/2015 Ot V72.84 03/19/2015 COS DO, NANDA L Ot 611. 71 03/19/2015 MARITZA DO, GATO M Ot 278. 00 03/19/2015 MARITZA DO, GATO M Ot 296. 90 03/19/2015 MARITZA DO, GATO M Ot 780. 54 03/19/2015 MARITZA DO, GATO M Ot 786. 09 03/19/2015 MARITZA DO, GATO M Ot 278. 00 03/19/2015 MARITZA DO, GATO M Ot 780. 54 03/19/2015 MARITZA DO, GATO M Ot 786. 09 03/19/2015 PINKY VERONICA, JONNATHAN Hyman Ot 256.31 03/19/2015 PINKY VERONICA, JONNATHAN A Ot 31 1 03/19/2015 PINKY VERONICA, JONNATHAN Hyman Ot 790.29 03/19/2015 PINKY VERONICA, JONNATHAN Hyman Ot V58.69 03/19/2015 SIDDHARTHA ANDERSON SOCIAL SECURITY SPECIALIST Ot 250.00 03/19/2015 SIDDHARTHA ANDERSON SOCIAL SECURITY SPECIALIST Ot 285.9 03/19/2015 SIDDHARTHA ANDERSON SOCIAL SECURITY SPECIALIST Ot V72.62 03/19/2015 BRENDA VERONICA, TARIQ Ot V72.84 03/19/2015 WAYNE SABA SOCIAL SECURITY SPECIALIST Ot 789.00 03/19/2015 ANNY THAKKAR HUMAN RESOURCE OFFICER Ot R0 5 03/19/2015 ANNY THAKKAR HUMAN RESOURCE OFFICER Ot R06.02 03/21/2015 ANNY THAKKAR HUMAN RESOURCE OFFICER Ot R0 5 03/21/2015 ANNY THAKKAR HUMAN RESOURCE OFFICER Ot R06.02 04/05/2015 Ot 724.02 04/05/2015 Ot 368.9 04/05/2015 Ot 784.0 04/05/2015 Ot 722.0 04/05/2015 Ot V72.84 04/05/2015 DAVID DONANDA L Ot 611. 71 04/05/2015 MARITZA DOCRISTOFERGATO M Ot 278. 00 04/05/2015 MARITZA DO, GATO M Ot 296. 90 04/05/2015 MARITZA DO, GATO M Ot 780. 54 04/05/2015 MARITZA DO GATO M Ot 786. 09 04/05/2015 MARITZA DO, GATO M Ot 278. 00 04/05/2015 MARITZA DO, GATO M Ot 780. 54 04/05/2015 MARITZA DO, GATO M Ot 786. 09 04/05/2015 PINKY VERONICA, JONNATHAN Hyman Ot 256.31 04/05/2015 PINKY VERONICA, JONNATHAN A Ot 31 1 04/05/2015 PINKY VERONICA, JONNATHAN A Ot 790.29 04/05/2015 PINKY VERONICA, JONNATHAN Hyman Ot V58.69 04/05/2015 SIDDHARTHA ANDERSON SOCIAL SECURITY SPECIALIST Ot 250.00 04/05/2015 SIDDHARTHA ANDERSON SOCIAL SECURITY SPECIALIST Ot 285.9 04/05/2015 SIDDHARTHA ANDERSON SOCIAL SECURITY SPECIALIST Ot V72.62 04/05/2015 BRENDA VERONICA, NATHALIEAAKI Ot V72.84 04/05/2015 WAYNE SABA SOCIAL SECURITY SPECIALIST Ot 789.00 04/05/2015 ANNY THAKKAR HUMAN RESOURCE OFFICER Ot R0 5 04/05/2015 ANNY THAKKAR HUMAN RESOURCE OFFICER Ot R06.02 04/26/2015 GEMINI ZHU DO Ot M79.671 04/26/2015 CLOVIS VERONICA, DAMIAN Enrique Ot M51.1 6 05/17/2015 Ot 724.02 05/17/2015 Ot 368.9 05/17/2015 Ot 784.0 05/17/2015 Ot 722.0 05/17/2015 Ot V72.84 05/17/2015 NANDA HERNANDEZ DO Ot 611. 71 05/17/2015 MARITZA DO GATO M Ot 278. 00 05/17/2015 MARITZA DO, GATO M Ot 296. 90 05/17/2015 MARITZA DO GATO M Ot 780. 54 05/17/2015 MARITZA DO, GATO M Ot 786. 09 05/17/2015 MARITZA DO, GATO M Ot 278. 00 05/17/2015 MARITZA DO, GATO M Ot 780. 54 05/17/2015 MARITZA DO, GATO M Ot 786. 09 05/17/2015 PINKY VERONICA, JONNATHAN A Ot 256.31 05/17/2015 PINKY VERONICA, JONNATHAN A Ot 31 1 05/17/2015 PINKY VERONICA, JONNATHAN A Ot 790.29 05/17/2015 PINKY VERONICA, JONNATHAN A Ot V58.69 05/17/2015 SIDDHARTHA ANDERSON SOCIAL SECURITY SPECIALIST Ot 250.00 05/17/2015 SIDDHARTHA ANDERSON SOCIAL SECURITY SPECIALIST Ot 285.9 05/17/2015 SIDDHARTHA ANDERSON SOCIAL SECURITY SPECIALIST Ot V72.62 05/17/2015 BRENDA VERONICA, TARIQ Ot V72.84 05/17/2015 WAYNE SABA SOCIAL SECURITY SPECIALIST Ot 789.00 05/17/2015 ANNY THAKKAR HUMAN RESOURCE OFFICER Ot R0 5 05/17/2015 ANNY THAKKAR HUMAN RESOURCE OFFICER Ot R06.02 05/17/2015 GEMINI ZHU DO Ot M79.671 05/17/2015 DAMIAN BRANNON MD Ot M51.1 6 05/17/2015 AUDRA GEMINI BERNARD Ot M79.671 05/23/2015 YESENIA BETANCOURT MD, Ot M54. 2 06/04/2015 YESENIA BETANCOURT MD, Ot M54. 2 07/02/2015 AUDRA BERNARD GEMINI Fonseca Ot M79.671 PAIN IN RIGHT FOOT 07/13/2015 YESENIA BETANCOURT MD Ot M50. 13 CERVICAL DISC DISORDER W RADICULOPATHY, 07/13/2015 YESENIA BETANCOURT MD, Ot M51. 16 INTERVERTEBRAL DISC DISORDERS W RADICULO 07/13/2015 YESENIA BETANCOURT MD Ot M96. 1 POSTLAMINECTOMY SYNDROME, NOT ELSEWHERE 07/13/2015 YESENIA BETANCOURT MD Ot Z79.899 OTHER RESIDENTIAL (CURRENT) DRUG THERAPY 07/23/2015 YESENIA BETANCOURT MD Ot M50. 13 CERVICAL DISC DISORDER W RADICULOPATHY, 07/23/2015 YESENIA BETANCOURT MD, Ot M51. 16 INTERVERTEBRAL DISC DISORDERS W RADICULO 07/23/2015 YESENIA BETANCOURT MD Ot M96. 1 POSTLAMINECTOMY SYNDROME, NOT ELSEWHERE 07/23/2015 YESENIA BETANCOURT MD Ot Z79.899 OTHER RESIDENTIAL (CURRENT) DRUG THERAPY 08/03/2015 YESENIA BETANCOURT MD Ot M50. 13 CERVICAL DISC DISORDER W RADICULOPATHY, 08/03/2015 YESENIA BETANCOURT MD, Ot M51. 16 INTERVERTEBRAL DISC DISORDERS W RADICULO 08/03/2015 YESENIA BETANCOURT MD Ot M53. 3 SACROCOCCYGEAL DISORDERS, NOT ELSEWHERE 08/03/2015 YESENIA BETANCOURT MD Ot M54. 5 LOW BACK PAIN 08/03/2015 YESENIA BETANCOURT MD, Ot M96. 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 13 CERVICAL DISC DISORDER W RADICULOPATHY, 08/16/2015 YESENIA BETANCOURT MD, Ot M51. 16 INTERVERTEBRAL DISC DISORDERS W RADICULO 08/16/2015 YESENIA BETANCOURT MD Ot M53. 3 SACROCOCCYGEAL DISORDERS, NOT ELSEWHERE 08/16/2015 YESENIA BETANCOURT MD, Ot M96. 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 71 MASTODYNIA 10/08/2015 GATO SALAS DO Ot 278. 00 OBESITY, NOS 10/08/2015 GATO SALAS DO Ot 296. 90 UNSPECIFIED EPISODIC MOOD DISORDER 10/08/2015 GATO SALAS DO Ot 780. 54 HYPERSOMNIA, UNSPECIFIED 10/08/2015 GATO SALAS DO Ot 786. 09 RESPIRATORY ABNORM NEC 10/08/2015 GATO SALAS DO Ot 278. 00 OBESITY, NOS 10/08/2015 GATO SALAS DO Ot 780. 54 HYPERSOMNIA, UNSPECIFIED 10/08/2015 GATO SALAS DO Ot 786. 09 RESPIRATORY ABNORM NEC 10/08/2015 JONNATHAN VANCE MD Ot 256.31 PREMATURE MENOPAUSE 10/08/2015 JONNATHAN VANCE MD Ot 31 1 DEPRESSIVE DISORDER NEC 10/08/2015 JONNATHAN VANCE MD Ot 790.29 OTHER ABNORMAL GLUCOSE 10/08/2015 JONNATHAN VANCE MD Ot V58.69 OT MED,LT,CURRENT USE 10/08/2015 SIDDHARTHA ANDERSON SOCIAL SECURITY SPECIALIST Ot 250.00 DIAB ELIO WO COMPL, TYPE II OR UNSPEC TY 10/08/2015 SIDDHARTHA ANDERSON SOCIAL SECURITY SPECIALIST Ot 285.9 ANEMIA NOS 10/08/2015 SIDDHARTHA ANDERSON SOCIAL SECURITY SPECIALIST Ot V72.62 LAB EXAM ORDERED PART OF A ROUTINE GE 10/08/2015 TARIQ GUTIERREZ MD Ot V72.84 EXAM PRE-OPERATIVE NOS 10/08/2015 WAYNE SABA SOCIAL SECURITY SPECIALIST Ot 789.00 ABDOMINAL PAIN, UNSPECIFIED SITE 10/08/2015 ANNY THAKKAR APRN Ot R0 5 COUGH 10/08/2015 BIJAN ANNY Dominic MATHEWS Ot R06.02 SHORTNESS OF BREATH 10/08/2015 DAMIAN BRANNON MD Ot M51.1 6 INTERVERTEBRAL DISC DISORDERS W RADICULO 10/08/2015 YESENIA BETANCOURT MD Ot M54. 2 CERVICALGIA 10/08/2015 YESENIA BETANCOURT MD, Ot M50. 13 CERVICAL DISC DISORDER W RADICULOPATHY, 10/08/2015 YESENIA BETANCOURT MD Ot Z53. 8 PROCEDURE AND TREATMENT NOT CARRIED OUT 10/08/2015 YESENIA BETANCOURT MD, Ot M47.812 SPONDYLOSIS W/O MYELOPATHY OR RADICULOPA 10/08/2015 YESENIA BETANCOURT MD, Ot M50. 13 CERVICAL DISC DISORDER W RADICULOPATHY, 10/08/2015 YESENIA BETANCOURT MD, Ot M51. 16 INTERVERTEBRAL DISC DISORDERS W RADICULO 10/08/2015 YESENIA BETANCOURT MD Ot M53. 3 SACROCOCCYGEAL DISORDERS, NOT ELSEWHERE 10/08/2015 YESENIA BETANCOURT MD, Ot M96. 1 POSTLAMINECTOMY SYNDROME, NOT ELSEWHERE 10/25/2015 TARIQ GUTIERREZ MD Ot Z01.81 8 ENCOUNTER FOR OTHER PREPROCEDURAL EXAMIN 10/25/2015 YESENIA BETANCOURT MD Ot M47.812 SPONDYLOSIS W/O MYELOPATHY OR RADICULOPA 10/25/2015 YESENIA BETANCOURT MD, Ot M50. 13 CERVICAL DISC DISORDER W RADICULOPATHY, 10/25/2015 YESENIA BETANCOURT MD, Ot M51. 16 INTERVERTEBRAL DISC DISORDERS W RADICULO 10/25/2015 YESENIA BETANCOURT MD, Ot M53. 3 SACROCOCCYGEAL DISORDERS, NOT ELSEWHERE 10/25/2015 YESENIA BETANCOURT MD, Ot M96. 1 POSTLAMINECTOMY SYNDROME, NOT ELSEWHERE 10/26/2015 Ot 724.02 SPI NAL STENOSIS, LUMBAR REG, W/OUT NEURO 10/26/2015 Ot 368.9 VISU AL DISTURBANCE NOS 10/26/2015 Ot 784.0 HEAD ACHE 10/26/2015 Ot 722.0 CERV ICAL DISC DISPLACMNT 10/26/2015 Ot V72.84 EXA M PRE- OPERATIVE NOS 10/26/2015 NANDA HERNANDEZ DO Ot 611. 71 MASTODYNIA 10/26/2015 GATO SALAS DO Ot 278. 00 OBESITY, NOS 10/26/2015 GATO SALAS DO Ot 296. 90 UNSPECIFIED EPISODIC MOOD DISORDER 10/26/2015 GATO SALAS DO Ot 780. 54 HYPERSOMNIA, UNSPECIFIED 10/26/2015 GATO SALAS DO Ot 786. 09 RESPIRATORY ABNORM NEC 10/26/2015 GATO SALAS DO Ot 278. 00 OBESITY, NOS 10/26/2015 GATO SALAS DO Ot 780. 54 HYPERSOMNIA, UNSPECIFIED 10/26/2015 GATO SALAS DO Ot 786. 09 RESPIRATORY ABNORM NEC 10/26/2015 PINKY VERONICA, JONNATHAN Hyman Ot 256.31 PREMATURE MENOPAUSE 10/26/2015 JONNATHAN VANCE MD Ot 31 1 DEPRESSIVE DISORDER NEC 10/26/2015 JONNATHAN VANCE MD Ot 790.29 OTHER ABNORMAL GLUCOSE 10/26/2015 JONNATHAN VANCE MD Ot V58.69 OTH MED,LT,CURRENT USE 10/26/2015 SIDDHARTHA ANDERSON SOCIAL SECURITY SPECIALIST Ot 250.00 DIAB ELIO WO COMPL, TYPE II OR UNSPEC TY 10/26/2015 SIDDHARTHA ANDERSON SOCIAL SECURITY SPECIALIST Ot 285.9 ANEMIA NOS 10/26/2015 SIDDHARTHA ANDERSON SOCIAL SECURITY SPECIALIST Ot V72.62 LAB EXAM ORDERED PART OF A ROUTINE GE 10/26/2015 TARIQ GUTIERREZ MD Ot V72.84 EXAM PRE-OPERATIVE NOS 10/26/2015 WAYNE SABA SOCIAL SECURITY SPECIALIST Ot 789.00 ABDOMINAL PAIN, UNSPECIFIED SITE 10/26/2015 ANNY THAKKAR HUMAN RESOURCE OFFICER Ot R0 5 COUGH 10/26/2015 ANNY THAKKAR HUMAN RESOURCE OFFICER Ot R06.02 SHORTNESS OF BREATH 10/26/2015 CLOVIS VERONICA, DAMIAN Enrique Ot M51.1 6 INTERVERTEBRAL DISC DISORDERS W RADICULO 10/26/2015 YESENIA BETANCOURT MD Ot M54. 2 CERVICALGIA 10/26/2015 YESENIA BETANCOURT MD Ot M50. 13 CERVICAL DISC DISORDER W RADICULOPATHY, 10/26/2015 YESENIA BETANCOURT MD Ot Z53. 8 PROCEDURE AND TREATMENT NOT CARRIED OUT 10/26/2015 TARIQ GUTIERREZ MD Ot Z01.81 8 ENCOUNTER FOR OTHER PREPROCEDURAL EXAMIN 10/26/2015 KIDO MD, TAKAAKI Ot K21.0 GASTRO-ESOPHAGEAL REFLUX DISEASE WITH ES 10/26/2015 BRENDA VERONICA, TAKOLEKI Ot K29.70 GASTRITIS, UNSPECIFIED, WITHOUT BLEEDING 10/26/2015 BRENDA VERONICA, TAKAAKI Ot K29.80 DUODENITIS WITHOUT BLEEDING 10/26/2015 BRENDA VERONICA, TAKAAKI Ot K44.9 DIAPHRAGMATIC HERNIA WITHOUT OBSTRUCTION 10/26/2015 BRENDA VERONICA, TAKAAKI Ot K59.00 CONSTIPATION, UNSPECIFIED 10/26/2015 BRENDA VERONICA, TAKAAKI Ot K62.5 HEMORRHAGE OF ANUS AND RECTUM 10/26/2015 BRENDA VERONICA, NATHALIEAAKI Ot K64.1 SECOND DEGREE HEMORRHOIDS 10/26/2015 BRENDA VERONICA TAKAAKI Ot L29.0 PRURITUS ANI 10/29/2015 BRENDA VERONICA, TAKAAKI Ot K21.0 GASTRO-ESOPHAGEAL REFLUX DISEASE WITH ES 10/29/2015 BRENDA VERONICA TAKAAKI Ot K29.70 GASTRITIS, UNSPECIFIED, WITHOUT BLEEDING 10/29/2015 BRENDA VERONICA, TAKAAKI Ot K29.80 DUODENITIS WITHOUT BLEEDING 10/29/2015 BRENDA VERONICA, TAKAAKI Ot K44.9 DIAPHRAGMATIC HERNIA WITHOUT OBSTRUCTION 10/29/2015 BRENDA VERONICA, NATHALIEAAKI Ot K59.00 CONSTIPATION, UNSPECIFIED 10/29/2015 BRENDA VERONICA, MARCELOKI Ot K62.5 HEMORRHAGE OF ANUS AND RECTUM 10/29/2015 MARCELO GUTIERREZ MDKI Ot K64.1 SECOND DEGREE HEMORRHOIDS 10/29/2015 TARIQ GUTIERREZ MD Ot L29.0 PRURITUS ANI 03/12/2016 SIDDHARTHA ANDERSON Ot Z12.31 ENCNTR SCREEN MAMMOGRAM FOR MALIGNANT NE 03/15/2016 SIDDHARTHA ANDERSON Ot Z12.31 ENCNTR SCREEN MAMMOGRAM FOR MALIGNANT NE 04/16/2016 Dominic MASON MD Ot G47.33 OBSTRUCTIVE SLEEP APNEA (ADULT) (PEDIATR 04/16/2016 Dominic MASON MD Ot I10 ESSENTIAL (PRIMARY) HYPERTENSION 04/16/2016 Dominic MASON MD Ot R06.00 DYSPNEA, UNSPECIFIED 04/16/2016 Dominic MASON MD Ot R07 .9 CHEST PAIN, UNSPECIFIED 04/16/2016 SIDDHARTHA ANDERSON Ot Z12.31 ENCNTR SCREEN MAMMOGRAM FOR MALIGNANT NE 05/12/2016 Dominic MASON MD Ot G47.33 OBSTRUCTIVE SLEEP APNEA (ADULT) (PEDIATR 05/12/2016 Dominic MASON MD Ot I10 ESSENTIAL (PRIMARY) HYPERTENSION 05/12/2016 Dominic MASON MD Ot R06.00 DYSPNEA, UNSPECIFIED 05/12/2016 Dominic MASON MD Ot R07 .9 CHEST PAIN, UNSPECIFIED 05/22/2016 Dominic MASON MD Ot G47.33 OBSTRUCTIVE SLEEP APNEA (ADULT) (PEDIATR 05/22/2016 Dominic MASON MD Ot I10 ESSENTIAL (PRIMARY) HYPERTENSION 05/22/2016 Dominic MASON MD Ot R06.00 DYSPNEA, UNSPECIFIED 05/22/2016 Dominic MASON MD Ot R07 .9 CHEST PAIN, UNSPECIFIED 06/26/2016 YESENIA BETANCOURT MD Ot M50. 13 CERVICAL DISC DISORDER W RADICULOPATHY, 06/26/2016 YESENIA BETANCOURT MD Ot M51. 16 INTERVERTEBRAL DISC DISORDERS W RADICULO 06/26/2016 YESENIA BETANCOURT MD Ot M53. 3 SACROCOCCYGEAL DISORDERS, NOT ELSEWHERE 06/26/2016 YESENIA BETANCOURT MD Ot M54. 5 LOW BACK PAIN 06/26/2016 YESENIA BETANCOURT MD Ot M96. 1 POSTLAMINECTOMY SYNDROME, NOT ELSEWHERE 06/26/2016 YESENIA BETANCOURT MD Ot Z79.899 OTHER RESIDENTIAL (CURRENT) DRUG THERAPY 06/28/2016 Ot 724.02 SPI NAL STENOSIS, LUMBAR REG, W/OUT NEURO 06/28/2016 Ot 368.9 VISU AL DISTURBANCE NOS 06/28/2016 Ot 784.0 HEAD ACHE 06/28/2016 Ot 722.0 CERV ICAL DISC DISPLACMNT 06/28/2016 Ot V72.84 EXA M PRE- OPERATIVE NOS 06/28/2016 NANDA HERNANDEZ DO Ot 611. 71 MASTODYNIA 06/28/2016 GATO SALAS DO Ot 278. 00 OBESITY, NOS 06/28/2016 GATO SALAS DO Ot 296. 90 UNSPECIFIED EPISODIC MOOD DISORDER 06/28/2016 GATO SALAS DO Ot 780. 54 HYPERSOMNIA, UNSPECIFIED 06/28/2016 GATO SALAS DO Ot 786. 09 RESPIRATORY ABNORM NEC 06/28/2016 GATO SALAS DO Ot 278. 00 OBESITY, NOS 06/28/2016 GATO SALAS DO Ot 780. 54 HYPERSOMNIA, UNSPECIFIED 06/28/2016 MARITZA BERNARD GATO Alfaro Ot 786. 09 RESPIRATORY ABNORM NEC 06/28/2016 JONNATHAN VANCE MD Ot 256.31 PREMATURE MENOPAUSE 06/28/2016 JONNATHAN VANCE MD Ot 31 1 DEPRESSIVE DISORDER NEC 06/28/2016 JONNATHAN VANCE MD Ot 790.29 OTHER ABNORMAL GLUCOSE 06/28/2016 JONNATHAN VANCE MD Ot V58.69 OT MED,LT,CURRENT USE 06/28/2016 SIDDHARTHA ANDERSON SOCIAL SECURITY SPECIALIST Ot 250.00 DIAB ELIO WO COMPL, TYPE II OR UNSPEC TY 06/28/2016 SIDDHARTHA ANDERSON SOCIAL SECURITY SPECIALIST Ot 285.9 ANEMIA NOS 06/28/2016 SIDDHARTHA ANDERSON SOCIAL SECURITY SPECIALIST Ot V72.62 LAB EXAM ORDERED PART OF A ROUTINE GE 06/28/2016 BRENDA VERONICA, TAKANDREW Ot V72.84 EXAM PRE-OPERATIVE NOS 06/28/2016 WAYNE SABA SOCIAL SECURITY SPECIALIST Ot 789.00 ABDOMINAL PAIN, UNSPECIFIED SITE 06/28/2016 ANNY THAKKAR HUMAN RESOURCE OFFICER Ot R0 5 COUGH 06/28/2016 ANNY THAKKAR HUMAN RESOURCE OFFICER Ot R06.02 SHORTNESS OF BREATH 06/28/2016 CLOVIS VERONICA, DAMIAN Enrique Ot M51.1 6 INTERVERTEBRAL DISC DISORDERS W RADICULO 06/28/2016 YESENIA BETANCOURT MD Ot M54. 2 CERVICALGIA 06/28/2016 YESENIA BETANCOURT MD Ot M50. 13 CERVICAL DISC DISORDER W RADICULOPATHY, 06/28/2016 YESENIA BETANCOURT MD Ot Z53. 8 PROCEDURE AND TREATMENT NOT CARRIED OUT 06/28/2016 SIDDHARTHA ANDERSON SOCIAL SECURITY SPECIALIST Ot Z12.31 ENCNTR SCREEN MAMMOGRAM FOR MALIGNANT NE 06/28/2016 MARLON VERONICA, Domniic LEIGH Ot G47.33 OBSTRUCTIVE SLEEP APNEA (ADULT) (PEDIATR 06/28/2016 Dominic MASON MD Ot I10 ESSENTIAL (PRIMARY) HYPERTENSION 06/28/2016 MARLON VERONICA, M LU Ot R06.00 DYSPNEA, UNSPECIFIED 06/28/2016 MARLON VERONICA, Dominic LEIGH Ot R07 .9 CHEST PAIN, UNSPECIFIED 06/28/2016 NE BURGOS HUMAN RESOURCE OFFICER Ot E86 .9 VOLUME DEPLETION, UNSPECIFIED 06/28/2016 NE BURGOS HUMAN RESOURCE OFFICER Ot I10 ESSENTIAL (PRIMARY) HYPERTENSION 06/28/2016 NE BURGOS HUMAN RESOURCE OFFICER Ot R06.00 DYSPNEA, UNSPECIFIED 06/28/2016 NE BURGOS HUMAN RESOURCE OFFICER Ot R11 .2 NAUSEA WITH VOMITING, UNSPECIFIED 06/28/2016 NE BURGOS HUMAN RESOURCE OFFICER Ot R19 .7 DIARRHEA, UNSPECIFIED 06/28/2016 NE BURGOS HUMAN RESOURCE OFFICER Ot R22.42 LOCALIZED SWELLING, MASS AND LUMP, LEFT 06/28/2016 NE BURGOS APRN Ot 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 06/30/2016 NE BURGOS HUMAN RESOURCE OFFICER Ot E86 .9 VOLUME DEPLETION, UNSPECIFIED 06/30/2016 NE BURGOS HUMAN RESOURCE OFFICER Ot I10 ESSENTIAL (PRIMARY) HYPERTENSION 06/30/2016 NE BURGOS HUMAN RESOURCE OFFICER Ot R06.00 DYSPNEA, UNSPECIFIED 06/30/2016 NE BURGOS HUMAN RESOURCE OFFICER Ot R11 .2 NAUSEA WITH VOMITING, UNSPECIFIED 06/30/2016 NE BURGOS HUMAN RESOURCE OFFICER Ot R19 .7 DIARRHEA, UNSPECIFIED 06/30/2016 NE BURGOS HUMAN RESOURCE OFFICER Ot R22.42 LOCALIZED SWELLING, MASS AND LUMP, LEFT 06/30/2016 NE BURGOS HUMAN RESOURCE OFFICER Ot Z79.899 OTHER RESIDENTIAL (CURRENT) DRUG THERAPY 07/01/2016 OMAR FENTON Ot M46.1 SACROILIITIS, NOT ELSEWHERE CLASSIFIED 07/01/2016 OMAR FENTON Ot M48.06 SPINAL STENOSIS, LUMBAR REGION 07/01/2016 OMAR FENTON Ot M54.16 RADICULOPATHY, LUMBAR REGION 07/13/2016 MARLON VERONICA, Dominic LEIGH Ot G47.33 OBSTRUCTIVE SLEEP APNEA (ADULT) (PEDIATR 07/13/2016 MARLON VERONICA, Dominic LEIGH Ot I10 ESSENTIAL (PRIMARY) HYPERTENSION 07/13/2016 MARLON VERONICA, Dominic LEIGH Ot R06.00 DYSPNEA, UNSPECIFIED 07/13/2016 Dominic MASON MD Ot R07 .9 CHEST PAIN, UNSPECIFIED 07/24/2016 OMAR FENTON Ot M46.1 SACROILIITIS, NOT ELSEWHERE CLASSIFIED 07/24/2016 OMAR FENTON Ot M48.06 SPINAL STENOSIS, LUMBAR REGION 07/24/2016 OMAR FENTON Ot M54.16 RADICULOPATHY, LUMBAR REGION 08/22/2016 OMAR FENTON Ot M46.1 SACROILIITIS, NOT ELSEWHERE CLASSIFIED 08/22/2016 OMAR FENTON Ot M48.06 SPINAL STENOSIS, LUMBAR REGION 08/22/2016 OMAR FENTON Ot M54.16 RADICULOPATHY, LUMBAR REGION 11/24/2016 Ot 724.02 SPI NAL STENOSIS, LUMBAR REG, W/OUT NEURO 11/24/2016 Ot 368.9 VISU AL DISTURBANCE NOS 11/24/2016 Ot 784.0 HEAD ACHE 11/24/2016 Ot 722.0 CERV ICAL DISC DISPLACMNT 11/24/2016 Ot V72.84 EXA M PRE- OPERATIVE NOS 11/24/2016 COSENS DO NANDA L Ot 611. 71 MASTODYNIA 11/24/2016 GATO SALAS DO Ot 278. 00 OBESITY, NOS 11/24/2016 GATO SALAS DO Ot 296. 90 UNSPECIFIED EPISODIC MOOD DISORDER 11/24/2016 GATO SALAS DO Ot 780. 54 HYPERSOMNIA, UNSPECIFIED 11/24/2016 GATO SALAS DO Ot 786. 09 RESPIRATORY ABNORM NEC 11/24/2016 GATO SALAS DO Ot 278. 00 OBESITY, NOS 11/24/2016 GATO SALAS DO Ot 780. 54 HYPERSOMNIA, UNSPECIFIED 11/24/2016 GATO SALAS DO Ot 786. 09 RESPIRATORY ABNORM NEC 11/24/2016 JONNATHAN VANCE MD Ot 256.31 PREMATURE MENOPAUSE 11/24/2016 JONNATHAN VANCE MD Ot 31 1 DEPRESSIVE DISORDER NEC 11/24/2016 JONNATHAN VANCE MD Ot 790.29 OTHER ABNORMAL GLUCOSE 11/24/2016 JONNATHAN VANCE MD Ot V58.69 OT MED,LT,CURRENT USE 11/24/2016 SIDDHARTHA ANDERSON SOCIAL SECURITY SPECIALIST Ot 250.00 DIAB ELIO WO COMPL, TYPE II OR UNSPEC TY 11/24/2016 SIDDHARTHA ANDERSON SOCIAL SECURITY SPECIALIST Ot 285.9 ANEMIA NOS 11/24/2016 SIDDHARTHA ANDERSON SOCIAL SECURITY SPECIALIST Ot V72.62 LAB EXAM ORDERED PART OF A ROUTINE GE 11/24/2016 TARIQ GUTIERREZ MD Ot V72.84 EXAM PRE-OPERATIVE NOS 11/24/2016 WAYNE SABA SOCIAL SECURITY SPECIALIST Ot 789.00 ABDOMINAL PAIN, UNSPECIFIED SITE 11/24/2016 ANNY THAKKAR HUMAN RESOURCE OFFICER Ot R0 5 COUGH 11/24/2016 ANNY THAKKAR HUMAN RESOURCE OFFICER Ot R06.02 SHORTNESS OF BREATH 11/24/2016 CLOVIS VERONICA, DAMIAN Enrique Ot M51.1 6 INTERVERTEBRAL DISC DISORDERS W RADICULO 11/24/2016 SERAFIN VERONICA, YESENIA Enrique Ot M54. 2 CERVICALGIA 11/24/2016 YESENIA BETANCOURT MD Ot M50. 13 CERVICAL DISC DISORDER W RADICULOPATHY, 11/24/2016 SERAFIN VERONICA, YESENIA Enrique Ot Z53. 8 PROCEDURE AND TREATMENT NOT CARRIED OUT 11/24/2016 SIDDHARTHA ANDERSON SOCIAL SECURITY SPECIALIST Ot Z12.31 ENCNTR SCREEN MAMMOGRAM FOR MALIGNANT NE 05/20/2017 SIDDHARTHA ANDERSON SOCIAL SECURITY SPECIALIST Ot Z12.31 ENCNTR SCREEN MAMMOGRAM FOR MALIGNANT NE 05/25/2017 SIDDHARTHA ANDERSON SOCIAL SECURITY SPECIALIST Ot Z12.31 ENCNTR SCREEN MAMMOGRAM FOR MALIGNANT NE 06/09/2017 SIDDHARTHA ANDERSON SOCIAL SECURITY SPECIALIST Ot Z12.31 ENCNTR SCREEN MAMMOGRAM FOR MALIGNANT NE 09/12/2017 Ot 722.0 CERV ICAL DISC DISPLACMNT 09/12/2017 Ot V72.84 EXA M PRE- OPERATIVE NOS 09/12/2017 COSENS DO NANDA L Ot 611. 71 MASTODYNIA 09/12/2017 GATO SALAS DO Ot 278. 00 OBESITY, NOS 09/12/2017 GATO SALAS DO Ot 296. 90 UNSPECIFIED EPISODIC MOOD DISORDER 09/12/2017 GATO SALAS DO Ot 780. 54 HYPERSOMNIA, UNSPECIFIED 09/12/2017 GATO SALAS DO Ot 786. 09 RESPIRATORY ABNORM NEC 09/12/2017 MARITZA BERNARD GATO M Ot 278. 00 OBESITY, NOS 09/12/2017 MARITZANHUNG BERNARD GATO Dominic Ot 780. 54 HYPERSOMNIA, UNSPECIFIED 09/12/2017 GATO SALAS DO Ot 786. 09 RESPIRATORY ABNORM NEC 09/12/2017 JONNATHAN VANCE MD Ot 256.31 PREMATURE MENOPAUSE 09/12/2017 JONNATHAN VANCE MD Ot 31 1 DEPRESSIVE DISORDER NEC 09/12/2017 JONNATHAN VANCE MD Ot 790.29 OTHER ABNORMAL GLUCOSE 09/12/2017 JONNATHAN VANCE MD Ot V58.69 OT MED,LT,CURRENT USE 09/12/2017 SIDDHARTHA ANDERSON SOCIAL SECURITY SPECIALIST Ot 250.00 DIAB ELIO WO COMPL, TYPE II OR UNSPEC TY 09/12/2017 SIDDHARTHA ANDERSON SOCIAL SECURITY SPECIALIST Ot 285.9 ANEMIA NOS 09/12/2017 SIDDHARTHA ANDERSON SOCIAL SECURITY SPECIALIST Ot V72.62 LAB EXAM ORDERED PART OF A ROUTINE GE 09/12/2017 BRENDA VERONICA, TARIQ Ot V72.84 EXAM PRE-OPERATIVE NOS 09/12/2017 WAYNE SABA SOCIAL SECURITY SPECIALIST Ot 789.00 ABDOMINAL PAIN, UNSPECIFIED SITE 09/12/2017 ANNY THAKKAR HUMAN RESOURCE OFFICER Ot R0 5 COUGH 09/12/2017 ANNY THAKKAR HUMAN RESOURCE OFFICER Ot R06.02 SHORTNESS OF BREATH 09/12/2017 CLOVIS VERONICA, DAMIAN Enrique Ot M51.1 6 INTERVERTEBRAL DISC DISORDERS W RADICULO 09/12/2017 YESENIA BETANCOURT MD Ot M54. 2 CERVICALGIA 09/12/2017 SERAFIN VERONICA, YESENIA Enrique Ot M50. 13 CERVICAL DISC DISORDER W RADICULOPATHY, 09/12/2017 YESENIA BETANCOURT MD Ot Z53. 8 PROCEDURE AND TREATMENT NOT CARRIED OUT 09/12/2017 SIDDHARTHA ANDERSON SOCIAL SECURITY SPECIALIST Ot Z12.31 ENCNTR SCREEN MAMMOGRAM FOR MALIGNANT NE 09/12/2017 SIDDHARTHA ANDERSON SOCIAL SECURITY SPECIALIST Ot Z12.31 ENCNTR SCREEN MAMMOGRAM FOR MALIGNANT NE 09/12/2017 EDU ANN SOCIAL SECURITY SPECIALIST Ot E11.9 TYPE 2 DIABETES MELLITUS WITHOUT COMPLIC 09/12/2017 EDU ANN SOCIAL SECURITY SPECIALIST Ot F41.9 ANXIETY DISORDER, UNSPECIFIED 09/12/2017 EDU ANN SOCIAL SECURITY SPECIALIST Ot G47.30 SLEEP APNEA, UNSPECIFIED 09/12/2017 MARISSA, EDU SOCIAL SECURITY SPECIALIST Ot H05.011 CELLULITIS OF RIGHT ORBIT 09/12/2017 MARISSA, EDU SOCIAL SECURITY SPECIALIST Ot H57.8 OTHER SPECIFIED DISORDERS OF EYE AND ADN 09/12/2017 MARISSA, EDU SOCIAL SECURITY SPECIALIST Ot I10 ESSENTIAL (PRIMARY) HYPERTENSION 09/12/2017 MARISSA, EDU SOCIAL SECURITY SPECIALIST Ot K21.9 GASTRO-ESOPHAGEAL REFLUX DISEASE WITHOUT 09/12/2017 MARISSA, EDU SOCIAL SECURITY SPECIALIST Ot Z87.448 PERSONAL HISTORY OF OTHER DISEASES OF UR 09/12/2017 MARISSA, EDU SOCIAL SECURITY SPECIALIST Ot Z90.710 ACQUIRED ABSENCE OF BOTH CERVIX AND UTER 09/14/2017 MARISSA, EDU SOCIAL SECURITY SPECIALIST Ot E11.9 TYPE 2 DIABETES MELLITUS WITHOUT COMPLIC 09/14/2017 MARISSA, EDU SOCIAL SECURITY SPECIALIST Ot F41.9 ANXIETY DISORDER, UNSPECIFIED 09/14/2017 MARISSA, EDU SOCIAL SECURITY SPECIALIST Ot G47.30 SLEEP APNEA, UNSPECIFIED 09/14/2017 MARISSA, EDU SOCIAL SECURITY SPECIALIST Ot H05.011 CELLULITIS OF RIGHT ORBIT 09/14/2017 MARISSA, EDU SOCIAL SECURITY SPECIALIST Ot H57.8 OTHER SPECIFIED DISORDERS OF EYE AND ADN 09/14/2017 MARISSA, EDU SOCIAL SECURITY SPECIALIST Ot I10 ESSENTIAL (PRIMARY) HYPERTENSION 09/14/2017 MARISSA, EDU SOCIAL SECURITY SPECIALIST Ot K21.9 GASTRO-ESOPHAGEAL REFLUX DISEASE WITHOUT 09/14/2017 MARISSA, EDU SOCIAL SECURITY SPECIALIST Ot Z87.448 PERSONAL HISTORY OF OTHER DISEASES OF UR 09/14/2017 MARISSA, EDU SOCIAL SECURITY SPECIALIST Ot Z90.710 ACQUIRED ABSENCE OF BOTH CERVIX AND UTER 09/14/2017 MARISSA, EDU SOCIAL SECURITY SPECIALIST Ot E11.9 TYPE 2 DIABETES MELLITUS WITHOUT COMPLIC 09/14/2017 MARISSA, EDU SOCIAL SECURITY SPECIALIST Ot F41.9 ANXIETY DISORDER, UNSPECIFIED 09/14/2017 MARISSA, EDU SOCIAL SECURITY SPECIALIST Ot G47.30 SLEEP APNEA, UNSPECIFIED 09/14/2017 MARISSA, EDU SOCIAL SECURITY SPECIALIST Ot H05.011 CELLULITIS OF RIGHT ORBIT 09/14/2017 MARISSA, EDU SOCIAL SECURITY SPECIALIST Ot H57.8 OTHER SPECIFIED DISORDERS OF EYE AND ADN 09/14/2017 MARISSA, EDU SOCIAL SECURITY SPECIALIST Ot I10 ESSENTIAL (PRIMARY) HYPERTENSION 09/14/2017 MARISSA, EDU SOCIAL SECURITY SPECIALIST Ot K21.9 GASTRO-ESOPHAGEAL REFLUX DISEASE WITHOUT 09/14/2017 MARISSA, EDU SOCIAL SECURITY SPECIALIST Ot Z87.448 PERSONAL HISTORY OF OTHER DISEASES OF UR 09/14/2017 MARISSAEDU SOCIAL SECURITY SPECIALIST Ot Z90.710 ACQUIRED ABSENCE OF BOTH CERVIX AND UTER 10/22/2018 SIDDHARTHA ANDERSON SOCIAL SECURITY SPECIALIST Ot Z12.31 ENCNTR SCREEN MAMMOGRAM FOR MALIGNANT NE 10/27/2018 SIDDHARTHA ANDERSON SOCIAL SECURITY SPECIALIST Ot M46.92 UNSPECIFIED INFLAMMATORY SPONDYLOPATHY, 10/27/2018 SIDDHARTHA ANDERSON SOCIAL SECURITY SPECIALIST Ot M48.02 SPINAL STENOSIS, CERVICAL REGION 10/27/2018 SIDDHARTHA ANDERSON SOCIAL SECURITY SPECIALIST Ot M50.222 OTHER CERVICAL DISC DISPLACEMENT AT C5-C 10/27/2018 SIDDHARTHA ANDERSON SOCIAL SECURITY SPECIALIST Ot M50.322 OTHER CERVICAL DISC DEGENERATION AT C5-C 10/27/2018 SIDDHARTHA ANDERSON SOCIAL SECURITY SPECIALIST Ot Z98.1 ARTHRODESIS STATUS 11/23/2018 SIDDHARTHA ANDERSON SOCIAL SECURITY SPECIALIST Ot M46.92 UNSPECIFIED INFLAMMATORY SPONDYLOPATHY, 11/23/2018 SIDDHARTHA ANDERSON SOCIAL SECURITY SPECIALIST Ot M48.02 SPINAL STENOSIS, CERVICAL REGION 11/23/2018 SIDDHARTHA ANDERSON SOCIAL SECURITY SPECIALIST Ot M50.222 OTHER CERVICAL DISC DISPLACEMENT AT C5-C 11/23/2018 SIDDHARTHA ANDERSON SOCIAL SECURITY SPECIALIST Ot M50.322 OTHER CERVICAL DISC DEGENERATION AT C5-C 11/23/2018 SIDDHARTHA ANDERSON SOCIAL SECURITY SPECIALIST Ot Z98.1 ARTHRODESIS STATUS 02/10/2019 SIDDHARTHA ANDERSON SOCIAL SECURITY SPECIALIST Ot Z12.31 ENCNTR SCREEN MAMMOGRAM FOR MALIGNANT NE 02/10/2019 SIDDHARTHA ANDERSON SOCIAL SECURITY SPECIALIST Ot M46.92 UNSPECIFIED INFLAMMATORY SPONDYLOPATHY, 02/10/2019 SIDDHARTHA ANDERSON SOCIAL SECURITY SPECIALIST Ot M48.02 SPINAL STENOSIS, CERVICAL REGION 02/10/2019 SIDDHARTHA ANDERSON SOCIAL SECURITY SPECIALIST Ot M50.222 OTHER CERVICAL DISC DISPLACEMENT AT C5-C 02/10/2019 SIDDHARTHA ANDERSON SOCIAL SECURITY SPECIALIST Ot M50.322 OTHER CERVICAL DISC DEGENERATION AT C5-C 02/10/2019 SIDDHARTHA ANDERSON SOCIAL SECURITY SPECIALIST Ot Z98.1 ARTHRODESIS STATUS 02/12/2019 EDU ANNP Ot E11.9 TYPE 2 DIABETES MELLITUS WITHOUT COMPLIC 02/12/2019 EDU ANNP Ot F41.9 ANXIETY DISORDER, UNSPECIFIED 02/12/2019 EDU ANN SOCIAL SECURITY SPECIALIST Ot G47.30 SLEEP APNEA, UNSPECIFIED 02/12/2019 MARISSA, EDU SOCIAL SECURITY SPECIALIST Ot G89.29 OTHER CHRONIC PAIN 02/12/2019 MARISSA, EDU SOCIAL SECURITY SPECIALIST Ot I10 ESSENTIAL (PRIMARY) HYPERTENSION 02/12/2019 MARISSA, EDU SOCIAL SECURITY SPECIALIST Ot K21.9 GASTRO-ESOPHAGEAL REFLUX DISEASE WITHOUT 02/12/2019 MARISSA, EDU SOCIAL SECURITY SPECIALIST Ot M54.5 LOW BACK PAIN 02/12/2019 MARISSA, EDU SOCIAL SECURITY SPECIALIST Ot Z90.710 ACQUIRED ABSENCE OF BOTH CERVIX AND UTER 02/14/2019 MARISSA, EDU SOCIAL SECURITY SPECIALIST Ot E11.9 TYPE 2 DIABETES MELLITUS WITHOUT COMPLIC 02/14/2019 MARISSA, EDU SOCIAL SECURITY SPECIALIST Ot F41.9 ANXIETY DISORDER, UNSPECIFIED 02/14/2019 MARISSA, EDU SOCIAL SECURITY SPECIALIST Ot G47.30 SLEEP APNEA, UNSPECIFIED 02/14/2019 MARISSA, EDU SOCIAL SECURITY SPECIALIST Ot G89.29 OTHER CHRONIC PAIN 02/14/2019 MARISSA, EDU SOCIAL SECURITY SPECIALIST Ot I10 ESSENTIAL (PRIMARY) HYPERTENSION 02/14/2019 MARISSA, EDU SOCIAL SECURITY SPECIALIST Ot K21.9 GASTRO-ESOPHAGEAL REFLUX DISEASE WITHOUT 02/14/2019 MARISSA, EDU SOCIAL SECURITY SPECIALIST Ot M54.5 LOW BACK PAIN 02/14/2019 MARISSA, EDU SOCIAL SECURITY SPECIALIST Ot Z90.710 ACQUIRED ABSENCE OF BOTH CERVIX AND UTER 02/17/2019 SIDDHARTHA ANDERSON SOCIAL SECURITY SPECIALIST Ot M48.061 SPINAL STENOSIS, LUMBAR REGION WITHOUT N 02/17/2019 SIDDHARTHA ANDERSON SOCIAL SECURITY SPECIALIST Ot M51.36 OTHER INTERVERTEBRAL DISC DEGENERATION, 02/17/2019 SIDDHARTHA ANDERSON SOCIAL SECURITY SPECIALIST Ot Z98.890 OTHER SPECIFIED POSTPROCEDURAL STATES Procedures Code Description Performed By Per formed On 81.02 OTH CERVICAL FUSION OF ANTERIOR COLUMN, 06/14/2012 81.62 FUSI ON/REFUS OF 2-3 VERTEBRAE 06/14/2012 Results Test Result Range Complete blood count (CBC) with automate d white blood cell (WBC) differential - 06/28/16 10:40 Blood leukocytes automated count (number/volume) 8.2 10*3/uL 4.3-11.0 Blood erythrocytes automated count (number/volume) 5.09 10*6/uL 4.35-5.85 Venous blood hemoglobin measurement (mass/volume) 13.4 g/dL 11.5-16.0 Blood hematocrit (volume fraction) 41 % 35-52 Automated erythrocyte mean corpuscular volume 81 [ foz_us] 80-99 Automated erythrocyte mean corpuscular h emoglobin (mass per erythrocyte) 26 pg 25-34 Automated erythrocyte mean corpuscular h emoglobin concentration measurement (mass/volume) 33 g/dL 32-36 Automated erythrocyte distribution width ratio 14. 5 % 10.0- 14.5 Automated blood platelet count (count/volume) 309 10*3/uL 130-400 Automated blood platelet mean volume measurement 10.4 [foz_us] 7.4-10.4 Automated blood neutrophils/100 leukocytes 88 % 42-75 Automated blood lymphocytes/100 leukocytes 5 % 12-44 Blood monocytes/100 leukocytes 6 % 0-12 Automated blood eosinophils/100 leukocytes 0 % 0-10 Automated blood basophils/100 leukocytes 0 % 0-10 Blood neutrophils automated count (number/volume) 7.2 10*3 1.8-7.8 Blood lymphocytes automated count (number/volume) 0.4 10*3 1.0-4.0 Blood monocytes automated count (number/volume) 0. 5 10*3 0.0-1.0 Automated eosinophil count 0.0 10*3/uL 0 .0-0.3 Automated blood basophil count (count/volume) 0.0 10*3/uL 0.0-0.1 Comprehensive metabolic panel - 06/28/16 10:40 Serum or plasma sodium measurement (moles/volume) 141 mmol/L 135-145 Serum or plasma potassium measurement (moles/volume) 4.3 mmol/L 3.6-5.0 Serum or plasma chloride measurement (moles/volume) 108 mmol/L 98-107 Carbon dioxide 21 mmol/L 21-32 Serum or plasma anion gap determination (moles/volume) 12 mmol/L 5-14 Serum or plasma urea nitrogen measurement (mass/volume ) 11 mg/dL 7-18 Serum or plasma creatinine measurement (mass/volume) 0.76 mg/dL 0.60-1.30 Serum or plasma urea nitrogen/creatinine mass ratio 14 NRG Serum or plasma creatinine measurement w ith calculation of estimated glomerular filtration rate > NRG Serum or plasma glucose measurement (mass/volume) 126 mg/dL 70-105 Serum or plasma calcium measurement (mass/volume) 9.2 mg/dL 8.5-10.1 Serum or plasma total bilirubin measurement (mass/volu me) 0.5 mg/dL 0.1-1.0 Serum or plasma alkaline phosphatase jose surement (enzymatic activity/volume) 135 U/L 40-136 Serum or plasma aspartate aminotransfera se measurement (enzymatic activity/volume) 32 U/L 5-34 Serum or plasma alanine aminotransferase measurement (enzymatic activity/volume) 34 U/L 0-55 Serum or plasma protein measurement (mass/volume) 7.6 g/dL 6.4-8.2 Serum or plasma albumin measurement (mass/volume) 4.4 g/dL 3.2-4.5 Lipase - 06/28/16 10:40 Lipase 21 U/L 8-78 Blood manual differential performed dete ction - 06/28/16 10:40 Blood monocytes/100 leukocytes 5 % NRG Manual blood segmented neutrophils/100 leukocytes 86 % NRG Blood band neutrophils/100 leukocytes 0 % NRG Manual blood lymphocytes/100 leukocytes 7 % NRG Manual eosinophils/100 leukocytes in nose 0 % NRG Manual blood basophils/100 leukocytes 0 % NRG Blood erythrocyte morphology finding identification NORMAL NRG Serum or plasma lithium measurement (mol es/volume) - 06/28/16 10:40 BNP level 12.5 pg/mL <100.0 Complete urinalysis with reflex to cultu re - 06/28/16 12:08 Urine color determination YELLOW NRG Urine clarity determination CLEAR NR G Urine pH measurement by test strip 6 5-9 Specific gravity of urine by test strip 1.010 1.016-1.022 Urine protein assay by test strip, semi-quantitative NEGATIVE NEGATIVE Urine glucose detection by automated test strip NE GATIVE NEGATIVE Erythrocytes detection in urine sediment by light micr oscopy NEGATIVE NEGATIVE Urine ketones detection by automated test strip NE GATIVE NEGATIVE Urine nitrite detection by test strip NEGATIVE NEGATIVE Urine total bilirubin detection by test strip NEGA TIVE NEGATIVE Urine urobilinogen measurement by automated test strip (mass/volume) NORMAL NORMAL Urine leukocyte esterase detection by dipstick 1+ NEGATIVE Automated urine sediment erythrocyte cou nt by microscopy (number/high power field) NONE NRG Automated urine sediment leukocyte count by microscopy (number/high power field) RARE NRG Bacteria detection in urine sediment by light microsco py NEGATIVE NRG Squamous epithelial cells detection in u rine sediment by light microscopy 0-2 NRG Crystals detection in urine sediment by light microsco py NONE NRG Casts detection in urine sediment by light microscopy NONE NRG Mucus detection in urine sediment by light microscopy NEGATIVE NRG Complete urinalysis with reflex to culture NO NRG Encounters ACCT No. Visit Date/Time Discharge Status Pt. Type Provider Facility Loc./Unit Complaint [id number] 02/24/2019 12:54:00 23:59:59 CLS Preadmit Dominic MASON MD [facility] CARD SOB,PRECORDIAL CAPELLAN,PALPITATIONS,ILDA,LVH [id number] 02/11/2019 14:44:00 23:59:59 CLS Outpatient SIDDHARTHA ANDERSON [facility] RAD BACK PAIN [id number] 02/07/2019 10:41:00 11:48:00 DIS Outpatient EDU ANN Vi [facility] ER BACK PAIN [id number] 11/17/2018 12:58:00 23:59:59 CLS Preadmit JONNATHAN VANCE MD [facility] RAD SCREENING [id number] 10/25/2018 10:15:00 23:59:59 CLS Outpatient SIDDHARTHA ANDERSON [facility] RAD NECK PAIN [id number] 09/12/2017 12:43:00 018 14:44:00 DIS Emergency EDU ANN [facility] ER R EYE SWELLING/UNKNOWN CAUSE [id number] 05/19/2017 08:12:00 018 23:59:59 CLS Outpatient SIDDHARTHA ANDERSON [facility] RAD SCREENING [id number] 08/08/2016 11:12:00 017 08:05:00 DIS Outpatient OMAR FENTON [facility] REHAB LUMBAR STENOSIS ;LUMBAR RADICULOPATHY;B SACROILITIS [id number] 07/14/2016 14:00:00 23:59:59 CLS Preadmit Dominic MASON MD [facility] CARD CHEST PAIN,DYSPNEA,HYPERTENSION,ILDA ON CPAP [id number] 04/14/2016 13:13:00 017 00:01:00 DIS Outpatient Dominic MASON MD [facility] CARD CHEST PAIN,DYSPNEA,HYPERTENSION,ILDA ON CPAP [id number] 06/28/2016 09:38:00 017 14:18:00 DIS Emergency NE BURGOS APRN [facility] ER VOMITING, DIARRHEA [id number] 03/11/2016 12:21:00 017 23:59:59 CLS Outpatient SIDDHARTHA ANDERSON [facility] RAD SCREENING;HEART MURMUR [id number] 10/26/2015 12:24:00 016 14:56:00 DIS Outpatient TARIQ GUTIERREZ MD [facility] BLOOD IN STOOL; HISTORY POLYPS;DYSPHAGIA [id number] 10/25/2015 06:12:00 016 10:11:00 DIS Outpatient TARIQ GUTIERREZ MD [facility] PREOP BLOOD IN STOOL; HISTORY OF POLYPS;DYSPHAGIA [id number] 10/08/2015 11:52:00 016 12:59:00 DIS Outpatient YESENIA BETANCOURT MD [facility] CARD SACROCOCCYGEAL DISORDER [id number] 08/03/2015 10:13:00 016 11:57:00 DIS Outpatient YESENIA BETANCOURT MD [facility] CARD SACROCOCCYGEAL DISORDER [id number] 07/13/2015 07:47:00 016 09:18:00 DIS Outpatient YESENIA BETANCOURT MD [facility] CARD DISC DISORDER [id number] 07/09/2015 12:33:00 016 23:59:59 CLS Outpatient YESENIA BETANCOURT MD [facility] CARD DISC DISORDER [id number] 05/31/2015 13:32:00 13:50:00 DIS Outpatient GEMINI ZHU DO [facility] REHAB S/P ACHILLIES T ENDON REPAIR [id number] 05/17/2015 08:20:00 016 23:59:59 CLS Outpatient YESENIA BETANCOURT MD [facility] RAD CERVIALGIA [id number] 04/13/2015 12:32:00 016 23:59:59 CLS Outpatient DAMIAN BRANNON MD [facility] RAD LUMBAR RADICULOPATHY [id number] 03/08/2015 16:39:00 23:59:59 CLS Outpatient ANNY THAKKAR HUMAN RESOURCE OFFICER [facility] RAD SHORTNESS OF BREATH,CO UGH [id number] 12/21/2014 20:10:00 015 21:22:00 DIS Emergency NE BURGOS HUMAN RESOURCE OFFICER [facility] ER LEG PAIN [id number] 09/24/2014 15:35:00 015 19:08:00 DIS Emergency SHAI GONZALEZ MD [facility] ER SHOOTING PAIN IN FEET G OING UP LEGS [id number] 08/31/2014 22:40:00 015 23:45:00 DIS Emergency BETTY YOO MD [facility] ER R RING FINGER I NFECTION [id number] 03/29/2014 10:03:00 015 23:59:59 CLS Outpatient WAYNE SABA SOCIAL SECURITY SPECIALIST [facility] RAD ABD PAIN [id number] 03/06/2014 23:49:00 014 01:45:00 DIS Emergency JACQUELINE BELLE DO a [facility] ER SOB,COUGHING [id number] 12/23/2013 09:18:00 014 13:00:00 DIS Outpatient [facility];BLOO D IN STOOL [id number] 12/21/2013 07:26:00 23:59:59 CLS Outpatient TARIQ GUTIERREZ MD [facility] PREOP EPIGASTRIC PAIN;BLOOD I N STOOL [id number] 08/29/2013 12:57:00 17:45:00 DIS Inpatient SAMUEL VERONICA, JIM Enrique [facility] CSD CP/CSD OVER FLOW [id number] 08/19/2013 10:02:00 23:59:59 CLS Outpatient SIDDHARTHA ANDERSON [facility] LAB ROUTINE,DM [id number] 06/07/2013 08:36:00 10:11:00 DIS Emergency OSCAR VERONICA, CARLOS Lo [facility] ER RIGHT RING FING ER PAIN/SWELLING [id number] 04/20/2013 20:03:00 06:10:00 DIS Outpatient GATO SALAS DO [facility] SLEEP SLEEP APNEA,SNORING,HYP ERSOMNIA [id number] 04/16/2013 10:49:00 23:59:59 CLS Outpatient JONNATHAN VANCE MD [facility] LAB RESIDENTIAL MED USE [id number] 04/09/2013 20:22:00 22:02:00 DIS Emergency JACQUELINE BELLE DO a [facility] ER FALL HEAD AND NECK PAIN [id number] 03/30/2013 21:15:00 06:40:00 DIS Outpatient GATO SALAS DO [facility] SLEEP SNORING,CHOKING,MOOD DI SORDER [id number] 03/23/2013 07:09:00 23:59:59 CLS Outpatient GATO SALAS DO [facility] RT DYSPNEA [id number] 03/21/2013 07:50:00 23:59:59 CLS Outpatient NANDA HERNANDEZ DO [facility] RAD LEFT BREAST PAIN [id number] 03/18/2013 09:34:00 23:59:59 CLS Outpatient GATO SALAS DO [facility] RAD DYSPNEA,HYPERSOMNIA [id number] 03/16/2013 19:14:00 014 21:30:00 DIS Emergency FREDO VERONICA, BETTY Steel [facility] ER BRONCHITIS [id number] 03/11/2019 13:00:00 P EN Preadmit Dominic MASON MD [facility] CARD PALPITATIONS [id number] 03/11/2019 12:00:00 P EN Preadmit Dominic MASON MD [facility] CARD SOB [id number] 09/04/2014 16:59:00 Document Registration [id number] 09/04/2014 16:58:00 Document Registration [id number] 09/04/2014 16:58:00 Document Registration [id number] 09/04/2014 16:58:00 Document Registration [id number] 09/04/2014 16:58:00 Document Registration [id number] 09/04/2014 16:58:00 Document Registration [id number] 09/04/2014 16:58:00 Document Registration [id number] 06/14/2012 11:49:00 Document Registration [id number] 05/27/2012 19:06:00 Document Registration [id number] 05/07/2012 21:33:00 Document Registration [id number] 03/06/2012 14:35:00 Document Registration [id number] 02/17/2012 08:36:00 Document Registration [id number] 06/13/2011 23:00:00 Document Registration [id number] 06/05/2011 09:30:00 Document Registration [id number] 03/18/2011 00:51:00 Document Registration [id number] 08/02/2010 21:32:00 Document Registration [id number] 12/28/2009 06:55:00 Document Registration [id number] 12/14/2009 21:27:00 Document Registration
== END 2019-02-07 11:48 | disposition home or self-care (01) ==
LOC: EDUNIT# 10:40 → ER 10:41
DX: M54.5 Low back pain (principal); G89.29 Other chronic pain; G47.30 Sleep apnea, unspecified; I10 Essential (primary) hypertension; K21.9 Gastro-esophageal reflux disease without esophagitis; E11.9 Type 2 diabetes mellitus without complications; F41.9 Anxiety disorder, unspecified; Z90.710 Acquired absence of both cervix and uterus
CPT/HCPCS: 96372; 99284

== ENCOUNTER → 2019-02-11 | Outpatient (CLI) | payer MEDICARE, OTHER ==
[~2019-02-11] MED LIST changes: +LISI1TAB25 PO; +NAPR-1071 PO
--- NOTE | 2019-02-11 16:11 | Diagnostic Imaging Report ---
PROCEDURE: MRI lumbar spine. TECHNIQUE: Multiplanar, multisequence MRI of the lumbar spine was performed without contrast. INDICATION: A prior history of lumbar spine surgeries and has lumbar spine pain. COMPARISON: Comparison is made with prior MRI of the lumbar spine performed on 04/13/2015. FINDINGS: Curvature and alignment of the lumbar spine is normal. Further surgery to the lumbar spine has occurred since the prior MRI. There is extension of the posterior instrumented fusion. There is now posterior instrumented fusion with vertical stabilization rods and pedicle screws extending from L2 through S1. Hardware does create a moderate amount of artifact. Vertebral body heights are maintained. Marrow signal intensity is normal. There is no acute compression fracture. Intervertebral body spacers are noted at the surgical levels. There has been decompression laminectomy. The conus appears unremarkable at the T12-L1 level. T12-L1: Central canal is widely patent. Neuroforamina appear to be patent. L1-T2: There are some endplate osteophyte changes indenting the ventral thecal sac. Central canal is patent but there is narrowing of the lateral recesses bilaterally. Neuroforamina are difficult to assess due to artifact. L2-L3: Central canal is patent. Neuroforaminal evaluation is somewhat limited due to artifact. L3-L4: Central canal is patent. Neuroforamina appear to be patent but are limited by artifact. L4-L5: Endplate osteophytes indent the ventral thecal sac but central canal is patent. Neuroforamina are limited due to artifact. L5-S1: Central canal is patent. Neuroforamina appear to be patent. No fluid collections are seen. Paraspinous tissues are unremarkable. IMPRESSION: Postop changes of posterior instrumented fusion of L2 through S1. No complicating features are identified. There is some degenerative disc disease at L1-L2 level with resultant lateral recess narrowing bilaterally. Central canal appears patent. No acute compression fracture is seen. Dictated by: Dictated on workstation # [id number]
== END ==
LOC: RAD 14:44
PROVIDERS: ATTEND Nurse Practitioner Family
DX: M51.36 Other intervertebral disc degeneration, lumbar region (principal); M48.061 Spinal stenosis, lumbar region without neurogenic claudication; Z98.890 Other specified postprocedural states
CPT/HCPCS: 72148

== ENCOUNTER 2019-03-11 12:01 | Outpatient (RCR) | payer MEDICARE, OTHER | END 2019-06-09 | disposition home or self-care (01) | LOC: CARD 12:01 | PROVIDERS: ATTEND Internal Medicine Interventional Cardiology | DX: I51.7 Cardiomegaly (principal); G47.33 Obstructive sleep apnea (adult) (pediatric); I83.813 Varicose veins of bilateral lower extremities with pain | CPT/HCPCS: 93306 ==

== ENCOUNTER → 2019-03-17 | Outpatient (CLI) | payer MEDICARE, OTHER ==
[~2019-03-17] VITALS: Ht 165 cm; Wt 108.0 kg
[~2019-03-17] MED LIST changes: +CATHETER FLUSH 10 ML SYR IV PRN; +REGADENOSON 0.4 MG/5 ML SYR (LEXISCAN) IV ONE
[2019-03-24 13:39] VITALS: BP 158/92
--- NOTE | 2019-03-24 13:39 | Cardiology Stress Test Report ---
Stress Test Report Type of NM Stress Test: Test Type: LEXISCAN 0.4MG/5ML Date of Procedure/Referring: Date of Procedure: Mar 17, 2019 PCP Dominic Parry MD Admitting Physician Ally Manzanares MD Indications: Shortness of breath, precordial chest pain. Baseline Heart Rate: 84 Baseline Blood Pressure: Blood Pressure Systolic: 158 Blood Pressure Diastolic: 92 Baseline EKG: Baseline EKG: sinus rhythm Summary & Conclusion: Summary: The patient was brought to the stress lab after informed consent was taken. Stress test was performed according to the Lexiscan protocol. 0.4 mg of IV Lexiscan was given. Low-grade exercise was performed. Baseline EKG showed sinus rhythm at 84 BPM, blood pressure 158/92 mmHg. Maximum heart rate of 88 bpm and blood pressure 155/80 mmHg. Patient did not have any chest pain, arrhythmias or no significant ST segment changes during the stress test. 9.61 mCi of Myoview were given for rest imaging and 32.2 mCi of Myoview given for stress imaging. Transient ischemic dilatation score 0.99, EF 68 percent. Normal wall motion. Normal myocardial perfusion imaging during rest and stress. Conclusion: Pharmacological stress test was negative for ischemia. Normal LV function with no wall motion abnormalities. Normal myocardial perfusion imaging during rest and stress. Dominic PARRY MD Mar 24, 2019 13:39
== END ==
LOC: CARD 08:08
PROVIDERS: ATTEND Internal Medicine Interventional Cardiology
DX: I51.7 Cardiomegaly (principal); R07.2 Precordial pain; R06.02 Shortness of breath; G47.33 Obstructive sleep apnea (adult) (pediatric); R00.2 Palpitations
CPT/HCPCS: 78452; 93017

== ENCOUNTER → 2019-04-21 | Outpatient (CLI) | payer MEDICARE, OTHER ==
[~2019-04-21] MED LIST changes: -CATHETER FLUSH 10 ML SYR IV PRN; -REGADENOSON 0.4 MG/5 ML SYR (LEXISCAN) IV ONE
--- NOTE | 2019-04-21 16:37 | Diagnostic Imaging Report ---
PROCEDURE: CT lumbar spine without contrast. TECHNIQUE: Multiple contiguous axial images were obtained through the lumbar spine without the use of intravenous contrast. Sagittal and coronal reformations were then performed. Auto Exposure Controls were utilized during the CT exam to meet ALARA standards for radiation dose reduction. INDICATION: Back pain. COMPARISON: There are no previous CT lumbar spine examinations available for comparison. FINDINGS: The MRI lumbar spine exam performed on 02/11/2019 did note postoperative changes consistent with a fusion of L2 through S1. On this exam, there are bilateral pedicle screws within the vertebral bodies of L2, L3 and L4. There is a single pedicle screw on the right at L5. In addition, there are also orthopedic fixation screws extending through both sacroiliac joints. Interbody devices are also evident at the L2-L3, L3-L4 and L4-L5 levels. The orthopedic hardware appears to be in good position. There is no fracture or acute bony abnormality evident. The artifact related to the orthopedic hardware does limit the evaluation of the thecal sac. There is no obvious spinal stenosis identified. The MRI exam did note degenerative disc disease at L1-L2 with resultant lateral recess narrowing bilaterally. That finding is again evident and no different. There is no sign of a paraspinal mass. IMPRESSION: 1. There are extensive postoperative changes involving the lumbar spine consistent with a fusion of L2 through S1. There are also orthopedic fixation screws extending through both sacroiliac joints. The orthopedic hardware appears to be in good position. 2. There is no acute bony abnormality noted. 3. The thecal sac is difficult to evaluate due to streak artifact. There is no obvious central stenosis identified. Dictated by: Dictated on workstation # [id number]
== END ==
LOC: RAD 16:00
PROVIDERS: ATTEND Orthopaedic Surgery Orthopaedic Surgery of the Spine
DX: M54.5 Low back pain (principal); Z98.1 Arthrodesis status
CPT/HCPCS: 72131

== ENCOUNTER → 2019-08-05 | Outpatient (CLI) | payer MEDICARE, OTHER ==
[~2019-08-05] MED LIST changes: -TIZA2TAB4 PO; +TIZA2TAB7 PO
== END ==
LOC: LABNPT 08:54
PROVIDERS: ATTEND Emergency Medicine
DX: Z11.59 Encounter for screening for other viral diseases (principal)
CPT/HCPCS: 87635

== ENCOUNTER 2020-08-12 15:26 | Emergency (ER) | payer MEDICARE, OTHER ==
[~2020-08-12] VITALS: Ht 165.1 cm; Wt 104.3 kg
[~2020-08-12 15:26] MED LIST changes: +ESCI-2 PO; -ESCI10TA55 PO; -LISI1TAB25 PO; +LISI1TAB46 PO; -PANT40TA3 PO; +PANT40TA52 PO; +TIZA-169 PO; -TIZA2TAB7 PO
--- NOTE | 2020-08-12 16:44 | ED General ---
General Chief Complaint: General Problems/Pain Stated Complaint: BODY ACHES/ NAUSEA/ NECK PAIN Nursing Triage Note: PT AMBULATE TO ROOM 08 WITH C/O EVERY JOINT PAIN, PAIN IN POSTERIOR NECK, NAUSEA X1 MONTH. PT REPORTS HAVING A DEGENERATIVE BONE DISEASE THAT SHE IS BEING TREATED FOR. Nursing Sepsis Screen: No Definite Risk Source of Information: Patient Exam Limitations: No Limitations History of Present Illness Date Seen by Provider: Aug 12, 2020 Time Seen by Provider: 16:20 Initial Comments This 55-year-old woman presents to the emergency room with primary complaint of widespread arthralgias particularly affecting her hands and feet. She reports being very fatigued as well. She had recent placement of a nerve stimulator in the spine. She reports having a work-up with Dr. BRANNON for rheumatologic disorders previously. She does not exactly know what that work-up consisted of. She has nausea without vomiting. She has not been sleeping well. She complains of neck stiffness and pain. She reports "low-grade fevers" but do not exceed 100 degrees. She has had worsening fatigue over the past month. She takes Cymbalta and ibuprofen for pain. She reports a mild dry cough for about 3 weeks. Allergies and Home Medications Allergies Coded Allergies: No Known Drug Allergies (Unverified , 03/01/09) Home Medications Amitriptyline HCl 25 Mg Tablet, 25 MG PO HS, (Reported) Amoxicillin/Potassium Clav 1 Each Tablet, 1 EACH PO BID Prescribed by: EDU ANN on 09/12/17 1435 Cholecalciferol (Vitamin D3) 2,000 Unit Tablet, 2,000 UNIT PO DAILY, (Reported) Clotrimazole/Betamethasone Dip 15 Gm Cream..g., 15 GM TP BID Prescribed by: TARIQ GUTIERREZ on 10/26/15 1411 Cyclobenzaprine HCl 10 Mg Tablet, 10 MG PO Q8H PRN for SPASMS Prescribed by: EDU ANN on 02/07/19 1140 Dexlansoprazole 60 Mg Keegan.bp, 60 MG PO DAILY Prescribed by: TARIQ GUTIERREZ on 10/26/15 1411 Diclofenac Sodium 75 Mg Tablet.dr 75 MG PO BID, (Reported) Escitalopram Oxalate 10 Mg Tablet, 10 MG PO HS, (Reported) Gabapentin 600 Mg Tablet, 600 MG PO TID, (Reported) Lisinopril/Hydrochlorothiazide 1 Each Tablet, 1 TAB PO DAILY, (Reported) Multivitamin 1 Each Tablet, 1 EACH PO DAILY, (Reported) Naproxen 500 Mg Tablet, 500 MG PO BID Prescribed by: EDU ANN on 02/07/19 1140 Ondansetron 8 Mg Tab.rapdis, 8 MG PO Q6H PRN for NAUSEA/VOMITING-1ST LINE Prescribed by: NE BURGOS on 06/28/16 1219 Pantoprazole Sodium 40 Mg Tablet.dr, 40 MG PO DAILY, (Reported) Prednisone 20 Mg Tab, 40 MG PO DAILY Prescribed by: BETTY DALY on 08/12/20 1933 Sucralfate 1 Gm Tablet, 1 GM PO QID Prescribed by: TARIQ GUTIERREZ on 10/26/15 1411 Tizanidine HCl 2 Mg Tablet, 2 MG PO HS, (Reported) Tramadol HCl 50 Mg Tablet, 50 MG PO Q6H PRN for PAIN Prescribed by: EDU ANN on 02/07/19 1140 Triamcinolone Acet 15 Gm Oint, 1 GM TP BID Apply a small amount topically to the affected area on the left leg twice daily for 5-7 days. Prescribed by: NE BURGOS on 06/28/16 1217 Patient Home Medication List Home Medication List Reviewed: Yes Review of Systems Review of Systems Constitutional: see HPI EENTM: no symptoms reported Respiratory: see HPI Cardiovascular: no symptoms reported Gastrointestinal: see HPI Genitourinary: no symptoms reported Musculoskeletal: see HPI Skin: no symptoms reported Psychiatric/Neurological: No Symptoms Reported Hematologic/Lymphatic: No Symptoms Reported Immunological/Allergic: no symptoms reported Past Rmtgpvc-Npanja-Tvxirp Hx Past Med/Social Hx: Reviewed Nursing Past Med/Soc Hx Patient Social History Alcohol Use: Denies Use Smoking Status: Never a Smoker 2nd Hand Smoke Exposure: No Recent Infectious Disease Expo: No Recent Hopitalizations: No Immunizations Up To Date Tetanus Booster (TDap): More than 5yrs Date of Influenza Vaccine: Dec 16, 2013 Seasonal Allergies Seasonal Allergies: No Past Medical History Surgeries: Yes (BACK SX RODS PLACED, neck sx, nerve stimulator) Gallbladder, Hysterectomy, Orthopedic Respiratory: Yes (sleep apnea-uses cpap) Sleep Apnea Cardiac: Yes Hypertension Neurological: No Reproductive Disorders: Yes Female Reproductive Disorders: Polycystic 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 Sexually Transmitted Disease: No HIV/AIDS: No Gastrointestinal: No Gastroesophageal Reflux Musculoskeletal: Yes Degenerate Disk Disease, Back Injury Endocrine: No Diabetes, Non-Insulin dep HEENT: No Cancer: No Psychosocial: Yes Anxiety Integumentary: No Blood Disorders: No Adverse Reaction/Blood Tranf: No Family Medical History No Pertinent Family Hx Physical Exam Vital Signs Vital Signs - First Documented 08/12/20 08/12/20 16:20 19:26 Temp 36.7 Pulse 97 Resp 19 B/P (MAP) 185/113 (137) Pulse Ox 98 O2 Delivery Room Air Capillary Refill : Less Than 3 Seconds Height, Weight, BMI Height: 5'5.00" Weight: 230lbs. 0.0oz. [id number]; 38.00 BMI Method:Stated General Appearance: WD/WN, Mild Distress (Emotional, tearful) HEENT: PERRL/EOMI, Normal ENT Inspection, Other (This membranes somewhat dry) Neck: Normal Inspection Respiratory: Lungs Clear, Normal Breath Sounds, No Accessory Muscle Use Cardiovascular: Regular Rate, Rhythm, No Edema, No Murmur Gastrointestinal: Normal Bowel Sounds, Non Tender, Soft Extremity: Normal Inspection, No Pedal Edema, Other (Tenderness of the IP joints diffusely. No significant tenderness or swelling of the knees. No pain with rotation of the hips.) Neurologic/Psychiatric: Alert, Oriented x3, No Motor/Sensory Deficits, Normal Mood/Affect, underwear cutter II-XII Norm as Tested Skin: Normal Color, Warm/Dry Progress/Results/Core Measures Suspected Sepsis Recent Fever Within 48 Hours: No Infection Criteria Present: None New/Unexplained Altered Menta: No Sepsis Screen: No Definite Risk SIRS Temperature: Pulse: 97 Respiratory Rate: 19 Laboratory Tests 08/12/20 16:52: White Blood Count 7.5 Blood Pressure 185 /113 Mean: 137 Laboratory Tests 08/12/20 16:52: Creatinine 0.71, Platelet Count 324, Total Bilirubin 0.3 Results/Orders Lab Results Laboratory Tests Test 08/12/20 16:52 Range/Units White Blood Count 7.5 4.3-11.0 10^3/uL Red Blood Count 4.73 3.80-5.11 10^6/uL Hemoglobin 11.8 11.5-16.0 g/dL Hematocrit 37 35-52 % Mean Corpuscular Volume 79 L 80-99 fL Mean Corpuscular Hemoglobin 25 25-34 pg Mean Corpuscular Hemoglobin Concent 32 32-36 g/dL Red Cell Distribution Width 14.8 H 10.0-14.5 % Platelet Count 324 130-400 10^3/uL Mean Platelet Volume 10.4 9.0-12.2 fL Immature Granulocyte % (Auto) 1 % Neutrophils (%) (Auto) 67 42-75 % Lymphocytes (%) (Auto) 21 12-44 % Monocytes (%) (Auto) 9 0-12 % Eosinophils (%) (Auto) 2 0-10 % Basophils (%) (Auto) 1 0-10 % Neutrophils # (Auto) 5.1 1.8-7.8 10^3/uL Lymphocytes # (Auto) 1.6 1.0-4.0 10^3/uL Monocytes # (Auto) 0.7 0.0-1.0 10^3/uL Eosinophils # (Auto) 0.1 0.0-0.3 10^3/uL Basophils # (Auto) 0.1 0.0-0.1 10^3/uL Immature Granulocyte # (Auto) 0.0 0.0-0.1 10^3/uL Erythrocyte Sedimentation Rate 38 H 0-30 MM/HR Sodium Level 143 135-145 MMOL/L Potassium Level 3.9 3.6-5.0 MMOL/L Chloride Level 107 98-107 MMOL/L Carbon Dioxide Level 23 21-32 MMOL/L Anion Gap 13 5-14 MMOL/L Blood Urea Nitrogen 9 7-18 MG/DL Creatinine 0.71 0.60-1.30 MG/DL Estimat Glomerular Filtration Rate > 60 BUN/Creatinine Ratio 13 Glucose Level 124 H 70-105 MG/DL Calcium Level 9.2 8.5-10.1 MG/DL Corrected Calcium 9.1 8.5-10.1 MG/DL Total Bilirubin 0.3 0.1-1.0 MG/DL Aspartate Amino Transf (AST/SGOT) 21 5-34 U/L Alanine Aminotransferase (ALT/SGPT) 19 0-55 U/L Alkaline Phosphatase 162 H 40-136 U/L Total Creatine Kinase 381 H 29-168 U/L C-Reactive Protein High Sensitivity 1.49 H 0.00-0.50 MG/DL Total Protein 7.6 6.4-8.2 GM/DL Albumin 4.1 3.2-4.5 GM/DL TSH [place] Testing 1.11 0.35-4.94 UIU/ML My Orders Orders - BETTY YOO MD Cbc With Automated Diff (08/12/20 16:30) Comprehensive Metabolic Panel (08/12/20 16:30) Creatine Kinase (08/12/20 16:30) Hs C Reactive Protein (08/12/20 16:30) Thyroid Analyzer (08/12/20 16:30) Erythrocyte Sedimentation Rate (08/12/20 16:30) Ed Iv/Invasive Line Start (08/12/20 16:30) Chest 1 View, Ap/Pa Only (08/12/20 16:30) Ra Factor (Rheumatoid Factor) (08/12/20 18:58) Vitamin D 25-Hydroxy (08/12/20 18:58) Vital Signs/I&O 08/12/20 08/12/20 16:20 19:26 Temp 36.7 Pulse 97 78 Resp 19 18 B/P (MAP) 185/113 (137) 166/79 Pulse Ox 98 O2 Delivery Room Air Room Air Capillary Refill : Less Than 3 Seconds Blood Pressure Mean: 137 Progress Note : Progress Note Work-up revealed mild elevations in ESR, CRP, transaminases, and CK. Exact cause of her symptoms is uncertain. Dry cough could possibly be related to lisinopril use. CK elevation could be related to pantoprazole use. We discussed discontinuing pantoprazole for several days. If symptoms do not improve, she could start steroids. Recommended repeating labs before steroids are started. She should also follow-up with Dr. Manzanares this week. A prescription was provided for repeat labs. Patient was offered Toradol for pain control prior to discharge but she did not feel that was necessary. Labs pending at discharge included rheumatoid factor and vitamin D level. She does have a history of vitamin D level. It has been several months since she was evaluated for rheumatologic disorders by Dr. Lawrence. Diagnostic Imaging Diagonstic Imaging: Xray Plain Films/CT/US/NM/MRI: chest Comments NAME: HARRY MEDEL [facility] REC#: [id number] PT STATUS: REG ER : 1965 PHYSICIAN: BETTY YOO MD ADMIT DATE: 08/12/20/ER Signed Date of Exam:08/12/20 CHEST 1 VIEW, AP/PA ONLY INDICATION: Cough x 3 weeks. TECHNIQUE: Single view chest 4:46 p.m. CORRELATION STUDY: 03/08/2015. FINDINGS: The heart size, mediastinal configuration and pulmonary vascularity are within normal limits. The lungs are clear with no consolidating infiltrate. There is no significant effusion or pneumothorax. Thoracic spine stimulator has been placed since prior. Cervical spine fusion hardware is present. IMPRESSION: Negative for acute abnormality of the chest. Dictated by: Dictated on workstation # [id number] Dict: 08/12/20 1649 Trans: 08/12/20 1732 PJE [id number] Interpreted by: MARIA TERESA LUCIO DO Electronically signed by: MARIA TERESA LUCIO DO 08/12/20 173 Departure Impression Primary Impression: Polyarthralgia Additional Impressions: Elevated CK Fatigue Qualified Codes: R53.83 - Other fatigue Dry cough Disposition: HOME, SELF-CARE Condition: Stable Departure-Patient Inst. Decision time for Depature: 19:18 Referrals: JONNATHAN MANZANARES MD (PCP) Primary Care Physician SIDDHARTHA ANDERSON (Family) Primary Care Physician Patient Instructions: Rhabdomyolysis Add. Discharge Instructions: Stop pantoprazole (Protonix) as this may be related to muscle aches and pains and elevated creatinine kinase. You may take Pepcid (famotidine) 20 mg twice daily as a replacement for pantoprazole. Drink plenty of water to stay well-hydrated. Use Tylenol (acetaminophen) up to 1000 mg every 6 hours as needed for primary pain control and add ibuprofen up to 600 mg every 6 hours as needed for additional pain control. Follow-up with Dr. Manzanares's office later this week. You should have repeat labs obtained to recheck your CMP, ESR, CRP, and CK. You have been provided a prescription for these labs if they cannot be provided by Dr. Manzanares's office. If stopping pantoprazole does not improve your symptoms toward the end of the week or improve your lab values, consider starting prednisone as prescribed. If possible, discussed with Dr. Manzanares or her staff prior to initiating the prednisone. You have pending labs including a vitamin D level and a rheumatoid factor. Please discuss the results of those labs with Dr. Manzanares or her practitioners. Call with questions or concerns. Return to the ER if you have worsening symptoms. All discharge instructions reviewed with patient and/or family. Voiced understanding. Scripts Prednisone (Prednisone) 20 Mg Tab 40 MG PO DAILY, #8 TAB 0 Refills Prov: BETTY YOO MD 08/12/20 Copy Copies To 1: JONNATHAN MANZANARES MD, JOSHUA T MD Aug 12, 2020 16:44
--- NOTE | 2020-08-12 16:54 | Diagnostic Imaging Report ---
INDICATION: Cough x 3 weeks. TECHNIQUE: Single view chest 4:46 p.m. CORRELATION STUDY: 03/08/2015. FINDINGS: The heart size, mediastinal configuration and pulmonary vascularity are within normal limits. The lungs are clear with no consolidating infiltrate. There is no significant effusion or pneumothorax. Thoracic spine stimulator has been placed since prior. Cervical spine fusion hardware is present. IMPRESSION: Negative for acute abnormality of the chest. Dictated by: Dictated on workstation # [id number]
[2020-08-12 17:10] LABS: BASOPHILS # (AUTO) 0.1 10^3/uL (0.0-0.1); BASOPHILS % (AUTO) 1 % (0-10); EOSINOPHILS # (AUTO) 0.1 10^3/uL (0.0-0.3); EOSINOPHILS % (AUTO) 2 % (0-10); HEMATOCRIT 37 % (35-52); HEMOGLOBIN 11.8 g/dL (11.5-16.0); LYMPHOCYTES # (AUTO) 1.6 10^3/uL (1.0-4.0); LYMPHOCYTES % (AUTO) 21 % (12-44); MEAN CORPUSCULAR HEMOGLOBIN 25 pg (25-34); MEAN CORPUSCULAR HGB CONC 32 g/dL (32-36); MEAN CORPUSCULAR VOLUME 79 fL (80-99); MEAN PLATELET VOLUME 10.4 fL (9.0-12.2); MONOCYTES # (AUTO) 0.7 10^3/uL (0.0-1.0); MONOCYTES % (AUTO) 9 % (0-12); NEUTROPHILS # (AUTO) 5.1 10^3/uL (1.8-7.8); NEUTROPHILS % (AUTO) 67 % (42-75); PLATELET COUNT 324 10^3/uL (130-400); WHITE BLOOD COUNT 7.5 10^3/uL (4.3-11.0)
[2020-08-12 17:11] LABS: ALBUMIN 4.1 GM/DL (3.2-4.5); CHLORIDE 107 MMOL/L (98-107); POTASSIUM 3.9 MMOL/L (3.6-5.0); SODIUM 143 MMOL/L (135-145)
[2020-08-12 17:13] LABS: CALCIUM 9.2 MG/DL (8.5-10.1)
[2020-08-12 17:14] LABS: GLUCOSE 124 MG/DL (70-105); TOTAL PROTEIN 7.6 GM/DL (6.4-8.2)
[2020-08-12 17:15] LABS: BILIRUBIN,TOTAL 0.3 MG/DL (0.1-1.0); CARBON DIOXIDE 23 MMOL/L (21-32)
[2020-08-12 17:17] LABS: ALKALINE PHOSPHATASE 162 U/L (40-136); CREATININE SERUM 0.71 MG/DL (0.60-1.30); GFR ESTIMATED > 60
[2020-08-12 17:18] LABS: BUN/CREATININE RATIO 13
[2020-08-12 17:20] LABS: ALANINE AMINOTRANSFERASE 19 U/L (0-55); CREATINE KINASE 381 U/L (29-168)
[2020-08-12 17:39] LABS: ERYTHROCYTE SEDIMENTATION RATE 38 MM/HR (0-30)
[2020-08-12 17:40] LABS: TSH (THYROID ANALYZER) 1.11 UIU/ML (0.35-4.94)
[2020-08-12 19:26] VITALS: BP 166/79
[2020-08-12] MEDS ORDERED: PRD20T PO (19:33)
== END 2020-08-12 19:26 | disposition home or self-care (01) ==
LOC: EDUNIT# 15:26 → ER 15:28
DX: M25.50 Pain in unspecified joint (principal); R79.89 Other specified abnormal findings of blood chemistry; R53.83 Other fatigue; R05 Cough; K21.9 Gastro-esophageal reflux disease without esophagitis; F41.9 Anxiety disorder, unspecified; E11.9 Type 2 diabetes mellitus without complications; I10 Essential (primary) hypertension; Z79.52 Long term (current) use of systemic steroids; Z79.899 Other long term (current) drug therapy
CPT/HCPCS: 36415; 71045; 80053; 82306; 82550; 84443; 85025; 85652; 86141; 86431

== ENCOUNTER 2020-11-19 05:38 | Outpatient (CLI) | payer MEDICARE, OTHER ==
[~2020-11-19] VITALS: Ht 165.1 cm; Wt 100.0 kg
[~2020-11-19 05:38] MED LIST changes: +PRD20T PO
[2020-11-19] MEDS ORDERED: LISI40TA9 PO (13:01)
[2020-11-19] MEDS ORDERED: DULO60CA59 PO (13:01)
== END 2020-11-19 13:04 | disposition home or self-care (01) ==
LOC: PREOP 05:38
PROVIDERS: ATTEND Specialist
DX: Z01.818 Encounter for other preprocedural examination (principal)

== ENCOUNTER 2020-11-23 08:06 | Day surgery (SDC) | payer MEDICARE, OTHER ==
[~2020-11-23] VITALS: Ht 165.1 cm; Wt 100.0 kg
[~2020-11-23 08:06] MED LIST changes: +DULO60CA59 PO; +LISI40TA9 PO
[2020-11-23] MEDS ORDERED: TROPICAMIDE 1% OPH SOLN (MYDRIACYL) 15 ML BTL OU PRN (08:15)
[2020-11-23] MEDS ORDERED: PHENYLEPHRINE 10% OPHTH (NEO-SYN) 5 ML BTL OU PRN (08:15)
[2020-11-23] MEDS: TETRACAINE 0.5% OPHTH SOLN 4 ML BTL (SINGLE DOSE ONLY) OU PRN ×3 (08:22→08:35)
[2020-11-23 08:38] VITALS: BP 164/93
--- NOTE | 2020-11-23 08:51 | Ophthalmologist Pre-Op Note ---
Pre-Operative Progress Note H&P Reviewed The H&P was reviewed, patient examined and no changes noted. Date H&P Reviewed: Nov 23, 2020 Time H&P Reviewed: 08:51 Pre-Op Dx Secondary Cataract, Bilateral Eyes GISEL OWENS MD Nov 23, 2020 08:51
--- NOTE | 2020-11-23 08:59 | Ophthalmology Operative Report ---
YAG Capsulotomy PREOPERATIVE DIAGNOSIS: Secondary Cataract Bilateral POSTOPERATIVE DIAGNOSIS: Secondary Cataract Bilateral PROCEDURE: YAG Capsulotomy, Bilateral SURGEON: Maury Owens ANESTHESIA: Topical anesthesia COMPLICATIONS: None ESTIMATED BLOOD LOSS: Minimal DESCRIPTION OF PROCEDURE: After proper informed consent was obtained, the patient's, a 55 female , received one drop of Tropicamide and one drop of Tetracaine in each eye. The patient was then placed at the YAG laser and using a power of [ 3.5] millijoules and bursts [ 21] right eye and [ 16] left eye were used to fashion a central capsulotomy. The patient tolerated the procedure well without complication. MAURY OWENS MD Nov 23, 2020 08:58
== END 2020-11-23 09:00 ==
LOC: SDC 08:06
PROVIDERS: ATTEND Specialist
DX: H26.493 Other secondary cataract, bilateral (principal); G47.00 Insomnia, unspecified; F32.9 Major depressive disorder, single episode, unspecified; F41.9 Anxiety disorder, unspecified; Z90.710 Acquired absence of both cervix and uterus

== ENCOUNTER 2021-04-14 22:00 | Emergency (ER) | payer MEDICARE, OTHER ==
[~2021-04-14] VITALS: Ht 165.1 cm; Wt 100.0 kg
[~2021-04-14 22:00] MED LIST changes: +CYCL10TA25 PO
[2021-04-14 22:14] VITALS: BP 175/97
[2021-04-14] MEDS ORDERED: dexAMETHasone 6 MG TAB (DECADRON) PO STA (22:24)
[2021-04-14] MEDS ORDERED: LACTATED RINGERS 1,000 ML IV STA (22:24)
--- NOTE | 2021-04-14 22:36 | ED General ---
General Stated Complaint: BODY ACHES,FEVER,COUGH,CONGESTION-10DAYS +COVID Source of Information: Patient Exam Limitations: No Limitations History of Present Illness Date Seen by Provider: Apr 14, 2021 Time Seen by Provider: 22:17 Initial Comments Here with report of fever, cough, congestion, body aches and sore throat with known Covid infection for the last 10 days. States that she was seen and initially placed on the medication pack is typical for [facility] urgent care. She also was prescribed mulnopiravir and completed 5 days dosing. She states that she was feeling better until yesterday and today when she began to feel worse and short of air. She has not been able to eat or drink anything because of sore throat and chest congestion. Also has nasal congestion and mild cough. She is not vaccinated. Infected through family member. Timing/Duration: Changing Over Time, Getting Worse, Other (10 days) Severity: Moderate Associated Systoms: Cough, Fever/Chills; No Nausea/Vomiting; Shortness of Air, Weakness Allergies and Home Medications Allergies Coded Allergies: No Known Drug Allergies (Unverified , 03/01/09) Patient Home Medication List Home Medication List Reviewed: Yes Duloxetine HCl (Duloxetine HCl) 60 Mg Capsule.dr, 60 MG PO DAILY, (Reported) Entered as Reported by: JIM OSORIO on 11/19/20 1301 Lisinopril (Lisinopril) 40 Mg Tablet, 40 MG PO DAILY, (Reported) Entered as Reported by: JIM OSORIO on 11/19/20 1301 Multivitamin (Multi-Vitamin Daily) 1 Each Tablet, 1 EACH PO DAILY, (Reported) Entered as Reported by: JIM OSORIO on 10/25/15 1010 Pantoprazole Sodium (Pantoprazole Sodium) 40 Mg Tablet.dr, 40 MG PO DAILY, (Reported) Entered as Reported by: ERIKA SWAIN on 12/21/142019 Review of Systems Review of Systems Constitutional: see HPI; No chills; fever, weakness EENTM: nose congestion, throat pain Respiratory: cough, short of breath Cardiovascular: chest pain (Central chest congestion); No edema Gastrointestinal: No abdominal pain; loss of appetite; No nausea, No vomiting Genitourinary: no symptoms reported Musculoskeletal: No back pain; muscle weakness Skin: no symptoms reported All Other Systems Reviewed Negative Unless Noted: Yes Past Smfzepd-Nqkitx-Fvkjpa Hx Patient Social History Tobacco Use?: No Substance use?: No Alcohol Use?: No Immunizations Up To Date Tetanus Booster (TDap): More than 5yrs Seasonal Allergies Seasonal Allergies: No Past Medical History Surgeries: Yes (BACK SX RODS PLACED, neck sx, nerve stimulator) Eye Surgery, Gallbladder, Hysterectomy, Orthopedic Respiratory: Yes (sleep apnea-uses cpap) Sleep Apnea Cardiac: Yes Hypertension Neurological: No Reproductive Disorders: Yes Female Reproductive Disorders: Polycystic Ovarian 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 Sexually Transmitted Disease: No HIV/AIDS: No Gastrointestinal: No Gastroesophageal Reflux Musculoskeletal: Yes Degenerate Disk Disease, Back Injury Endocrine: No Diabetes, Non-Insulin dep HEENT: No Cancer: No Psychosocial: Yes Anxiety Integumentary: No Blood Disorders: No Adverse Reaction/Blood Tranf: No Family Medical History Reviewed Nursing Family Hx No Pertinent Family Hx Physical Exam-Suspected Sepsis Physical Exam Vital Signs Vital Signs - First Documented 04/14/21 22:14 Temp 37.7 Pulse 110 Resp 24 B/P (MAP) 175/97 (123) Pulse Ox 98 O2 Delivery Nasal Cannula O2 Flow Rate 2.00 Capillary Refill : Height, Weight, BMI Height: 5'5.00" Weight: 230lbs. 0.0oz. 104.939250hs; 38.00 BMI Method:Stated General Appearance: WD/WN, Mild Distress, Obese HEENT: PERRL/EOMI, Pharyngeal Erythema (Mild) Neck: Non Tender, Supple Respiratory: Lungs Clear, Normal Breath Sounds, Other (O2 sat 88%) Cardiovascular: No Murmur, Tachycardia Gastrointestinal: Non Tender, Soft Back: Normal Inspection, No CVA Tenderness, No Vertebral Tenderness Extremity: Normal Range of Motion, Non Tender, No Calf Tenderness, No Pedal Edema Neurologic/Psychiatric: Alert, Oriented x3 Skin: normal color, warm/dry Focused Exam Lactate Level 04/14/21 22:26: Lactic Acid Level 1.10 Lactic Acid Level Laboratory Tests Test 04/14/21 22:26 Lactic Acid Level 1.10 MMOL/L (0.50-2.00) Progress/Results/Core Measures Suspected Sepsis SIRS Temperature: Pulse: Respiratory Rate: Laboratory Tests 04/14/21 22:26: White Blood Count 5.1 Blood Pressure / Mean: 04/14/21 22:26: Lactic Acid Level 1.10 Laboratory Tests 04/14/21 22:26: Creatinine 0.71, INR Comment 0.9, Platelet Count 264, Total Bilirubin 0.3 Results/Orders Lab Results Laboratory Tests Test 04/14/21 22:26 Range/Units White Blood Count 5.1 4.3-11.0 10^3/uL Red Blood Count 4.52 3.80-5.11 10^6/uL Hemoglobin 11.3 L 11.5-16.0 g/dL Hematocrit 36 35-52 % Mean Corpuscular Volume 80 80-99 fL Mean Corpuscular Hemoglobin 25 25-34 pg Mean Corpuscular Hemoglobin Concent 31 L 32-36 g/dL Red Cell Distribution Width 15.1 H 10.0-14.5 % Platelet Count 264 130-400 10^3/uL Mean Platelet Volume 9.8 9.0-12.2 fL Immature Granulocyte % (Auto) 0 % Neutrophils (%) (Auto) 64 42-75 % Lymphocytes (%) (Auto) 23 12-44 % Monocytes (%) (Auto) 13 H 0-12 % Eosinophils (%) (Auto) 0 0-10 % Basophils (%) (Auto) 0 0-10 % Neutrophils # (Auto) 3.3 1.8-7.8 10^3/uL Lymphocytes # (Auto) 1.2 1.0-4.0 10^3/uL Monocytes # (Auto) 0.6 0.0-1.0 10^3/uL Eosinophils # (Auto) 0.0 0.0-0.3 10^3/uL Basophils # (Auto) 0.0 0.0-0.1 10^3/uL Immature Granulocyte # (Auto) 0.0 0.0-0.1 10^3/uL Prothrombin Time 13.0 12.2-14.7 SEC INR Comment 0.9 0.8-1.4 Activated Partial Thromboplast Time 27 24-35 SEC Fibrinogen 429 221-496 MG/DL D-Dimer 0.51 H 0.00-0.49 UG/ML Sodium Level 138 135-145 MMOL/L Potassium Level 3.9 3.6-5.0 MMOL/L Chloride Level 101 98-107 MMOL/L Carbon Dioxide Level 22 21-32 MMOL/L Anion Gap 15 H 5-14 MMOL/L Blood Urea Nitrogen 12 7-18 MG/DL Creatinine 0.71 0.60-1.30 MG/DL Estimat Glomerular Filtration Rate 100 BUN/Creatinine Ratio 17 Glucose Level 110 H 70-105 MG/DL Lactic Acid Level 1.10 0.50-2.00 MMOL/L Calcium Level 8.8 8.5-10.1 MG/DL Corrected Calcium 8.8 8.5-10.1 MG/DL Total Bilirubin 0.3 0.1-1.0 MG/DL Aspartate Amino Transf (AST/SGOT) 26 5-34 U/L Alanine Aminotransferase (ALT/SGPT) 24 0-55 U/L Alkaline Phosphatase 111 40-136 U/L C-Reactive Protein High Sensitivity 3.57 H 0.00-0.50 MG/DL Total Protein 7.1 6.4-8.2 GM/DL Albumin 4.0 3.2-4.5 GM/DL My Orders Orders - CARLOS MOORE MD Lactated Ringers (Lr 1000 Ml Iv Solution (04/14/21 22:24) Dexamethasone Tablet (Decadron Tablet) (04/14/21:24) Cbc With Automated Diff (04/14/21 22:25) Comprehensive Metabolic Panel (04/14/21 22:25) Blood Culture (04/14/21 22:25) Sputum Culture (04/14/21 22:25) Protime With Inr (04/14/21 22:25) Partial Thromboplastin Time (04/14/21 22:25) Chest 1 View, Ap/Pa Only (04/14/21 22:25) Ed Iv/Invasive Line Start (04/14/21 22:25) Vital Signs Adult Sepsis Patie Q15M (04/14/21 22:25) O2 (04/14/21 22:25) Remove Rings In Anticipation O (04/14/21 22:25) Lactic Acid Analyzer (04/14/21 22:25) Hs C Reactive Protein (04/14/21 22:25) Fibrinogen (04/14/21 22:25) Covid-19 External Lab Results (04/14/21 22:25) Isolation Central Supply Req (04/14/21 22:25) Procalcitonin (Pct) (04/14/21 22:25) Albuterol Inhaler (Albuterol) (2/6/22 23:15) Fibrin Degradation Products (04/14/21 22:26) Medications Given in ED Current Medications Medications Dose Ordered Sig/Malka Route Start Time Stop Time Status Last Admin Dose Admin Albuterol Sulfate 4 PUFFS Q2H PRN IH 04/14/21 23:15 04/14/21 23:15 4 PUFF Vital Signs/I&O 04/14/21 04/14/21 22:14 22:15 Temp 37.7 Pulse 110 Resp 24 B/P (MAP) 175/97 (123) Pulse Ox 98 O2 Delivery Nasal Cannula Nasal Cannula O2 Flow Rate 2.00 2.00 Capillary Refill : Progress Note : Progress Note Seen and evaluated. IV, labs, wrist x-ray, blood cultures and lactic acid ordered (sepsis protocol). LR 1 L bolus. Decadron 6 mg p.o. Placed on 2 L O2 via nasal cannula which did improve her oxygen saturations into the mid upper 90s. Monitor patient. 2340: Chest x-ray did not show significant infiltrates although there may be a few scattered lateral infiltrates. O2 saturations are maintaining at 95% on room air after albuterol MDI 4 puffs via spacer given. Overall she is feeling better after fluids and albuterol. D-dimer is only slightly positive at 0.51 and I do not believe she has concerns of pulmonary embolism at this point. This seems to be more reactive airway disease that is responded well to albuterol. All of this was discussed with the patient and she is much more comfortable now. She is on daily prednisone. I will do Medrol Dosepak and have her continue her prednisone afterwards. 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 I did discuss return precautions. Discharged home with return precautions. Patient verbalized understanding of instructions and agreement with plan. Diagnostic Imaging Diagonstic Imaging: Xray Plain Films/CT/US/NM/MRI: chest Comments Portable 1 view chest x-ray shows a few questionable lateral infiltrates but none significant and otherwise no other infiltrates noted. Reviewed: Reviewed by Me Departure Impression Primary Impression: COVID-19 virus infection Additional Impression: Reactive airway disease Qualified Codes: J45.21 - Mild intermittent asthma with (acute) exacerbation Disposition: HOME, SELF-CARE Condition: Improved Departure-Patient Inst. Decision time for Depature: 23:43 Referrals: JONNATHAN VANCE MD (PCP) Primary Care Physician SIDDHARTHA ANDERSON (Family) Primary Care Physician Patient Instructions: Acute Bronchitis, Adult (DC), COVID-19 (DC) Add. Discharge Instructions: Use albuterol metered-dose inhaler with the spacer, 2 to 4 puffs every 4 hours as needed for shortness of breath. Take medications as directed. Follow-up with your doctor later this week for recheck and further evaluation. When you complete the steroid prescription that was given by us, return to your previous prednisone prescription and follow the direction of your doctor regarding that prescription. Return for resting oxygen saturation 90% or less, chest pain, weakness, breathing problems, vomiting or other concerns as needed. Continue to drink plenty of fluids and get plenty of rest. You may use Tylenol or ibuprofen as tolerated per package directions for fever or aches. Scripts Methylprednisolone (Methylprednisolone Dose Pack) 4 Mg Tab.ds.pk 4 MG PO UD for 6 Days, #21 PKG PER DOSE PACK INSTRUCTIONS Prov: CARLOS MOORE MD 04/14/21 CARLOS MOORE MD Apr 14, 2021 22:36
[2021-04-14 22:39] LABS: BASOPHILS % (AUTO) 0 % (0-10); EOSINOPHILS % (AUTO) 0 % (0-10); HEMATOCRIT 36 % (35-52); HEMOGLOBIN 11.3 g/dL (11.5-16.0); LYMPHOCYTES # (AUTO) 1.2 10^3/uL (1.0-4.0); LYMPHOCYTES % (AUTO) 23 % (12-44); MEAN CORPUSCULAR HEMOGLOBIN 25 pg (25-34); MEAN CORPUSCULAR HGB CONC 31 g/dL (32-36); MEAN CORPUSCULAR VOLUME 80 fL (80-99); MEAN PLATELET VOLUME 9.8 fL (9.0-12.2); MONOCYTES # (AUTO) 0.6 10^3/uL (0.0-1.0); MONOCYTES % (AUTO) 13 % (0-12); NEUTROPHILS # (AUTO) 3.3 10^3/uL (1.8-7.8); NEUTROPHILS % (AUTO) 64 % (42-75); PLATELET COUNT 264 10^3/uL (130-400); WHITE BLOOD COUNT 5.1 10^3/uL (4.3-11.0)
[2021-04-14 22:54] LABS: INR 0.9 (0.8-1.4); POTASSIUM 3.9 MMOL/L (3.6-5.0)
[2021-04-14 22:55] LABS: CALCIUM 8.8 MG/DL (8.5-10.1)
[2021-04-14 22:56] LABS: TOTAL PROTEIN 7.1 GM/DL (6.4-8.2)
[2021-04-14 22:58] LABS: BILIRUBIN,TOTAL 0.3 MG/DL (0.1-1.0)
[2021-04-14 23:00] LABS: CREATININE SERUM 0.71 MG/DL (0.60-1.30)
[2021-04-14 23:14] LABS: FIBRIN DEGRADATION PRODUCTS 0.51 UG/ML (0.00-0.49)
[2021-04-14] MEDS ORDERED: RT-ALBUTEROL HFA 8.5 GM INHALER IH PRN (23:15)
[2021-04-14] MEDS ORDERED: METH4TAB10 PO (23:46)
--- NOTE | 2021-04-15 07:17 | Diagnostic Imaging Report ---
EXAMINATION: Chest 1 view HISTORY: COVID 19, shortness of breath COMPARISON: 08/12/2020 FINDINGS: There are a few patchy airspace opacities in the right lung base. No pleural effusion or pneumothorax. Heart size is normal. Spinal stimulator is present. IMPRESSION: 1. Patchy airspace opacities in the right lung base suggestive of pneumonia. Dictated by: Dictated on workstation # [id number]
== END 2021-04-15 00:02 | disposition home or self-care (01) ==
LOC: EDUNIT# 22:00 → ER 22:05
DX: U07.1 COVID-19 (principal); G47.30 Sleep apnea, unspecified; I10 Essential (primary) hypertension; K21.9 Gastro-esophageal reflux disease without esophagitis; E66.9 Obesity, unspecified; F41.9 Anxiety disorder, unspecified; E11.9 Type 2 diabetes mellitus without complications; Z68.38 Body mass index [BMI] 38.0-38.9, adult
CPT/HCPCS: 36415; 71045; 80053; 83605; 84145; 85025; 85379; 85384; 85610; 85730; 86141; 87040

== ENCOUNTER → 2022-06-20 | Outpatient (CLI) | payer MEDICARE, OTHER ==
[~2022-06-20] MED LIST changes: +METH4TAB10 PO
--- NOTE | 2022-06-20 10:32 | Diagnostic Imaging Report ---
EXAMINATION: Magnetic resonance imaging of the right knee without intravenous contrast DATE: June 20, 2022. COMPARISON: None. INDICATION: 57-year-old female, right knee pain. TECHNIQUE: Multiplanar, multisequence non contrast enhanced MR imaging was accomplished. FINDINGS: MENISCI: The medial meniscus is intact. The lateral meniscus is intact. LIGAMENTS AND TENDONS: There is mucoid degeneration of the anterior cruciate ligament with intact ligament fibers. The posterior cruciate ligament is intact. The medial collateral ligament is intact. The iliotibial band, mid third lateral capsular ligament, fibular collateral ligament, biceps femoris tendon and conjoined tendon are intact. The quadriceps tendon and patella ligament are intact. JOINT: There are broad areas of full-thickness and near full-thickness cartilage loss involving the lateral aspect of the medial patellar facet and median patellar ridge. There is underlying subchondral edema. The medial and lateral compartment cartilage is without identified defect. There is no knee joint effusion, prominent synovitis, or intra-articular body. BONE: There is degenerative related marrow edema in the patella, as mentioned above. There is no acute fracture, bone contusion, or evidence of osteonecrosis. There is no otherwise noted bone marrow signal abnormality. BURSAE AND SOFT TISSUES: There is a very small slitlike Farooq's cyst. There is nonspecific prepatellar subcutaneous edema. IMPRESSION: 1. Intact medial and lateral meniscus. 2. Mucoid degeneration of the anterior cruciate ligament with intact ligament fibers. Intact posterior cruciate ligament. Additional ligaments and tendons are intact 3. Moderate to severe patellofemoral compartment osteoarthritis without knee joint effusion. 4. No acute fracture, bone contusion, or other notable bone marrow signal abnormality. Dictated by: Dictated on workstation # [id number]
--- NOTE | 2022-06-20 12:57 | Diagnostic Imaging Report ---
Exam: MRI right foot without contrast. Date: June 20, 2022. Indication: 57-year-old female, right foot pain. Comparison: Right foot radiographs September 24, 2014. Technique: Multiple noncontrast MRI sequences of the right foot were obtained. Findings: The Lisfranc ligament proper is intact. The visualized portions of the peroneus longus and peroneus brevis tendons are intact. The visualized portions of the anterior extensor tendons are intact. The visualized portions of the posterior flexor tendons are intact. The visualized portions of the plantar fascia are intact. 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 There is no acute fracture, bone contusion, or evidence of osteonecrosis. There is degenerative related edema adjacent to the first metatarsophalangeal joint. There is severe joint space loss of the first metatarsophalangeal joint with osteophyte formation. There is no identified bone erosion. There is no sizable joint effusion. There are subcortical cystic changes and edema-like signal in the base of the second metatarsal of unclear exact significance. There is nonspecific dorsal subcutaneous edema. There is no identified focal fluid collection. Impression: 1. Severe osteoarthritis of the first metatarsophalangeal joint. No sizable joint effusion. 2. Intact Lisfranc ligament proper and intact imaged tendons. 3. No acute fracture, bone contusion, stress reaction, or evidence of osteonecrosis. 4. Nonspecific dorsal subcutaneous edema without focal fluid collection. Dictated by: Dictated on workstation # [id number]
== END ==
LOC: RAD 09:29
PROVIDERS: ATTEND Allergy & Immunology
DX: M17.11 Unilateral primary osteoarthritis, right knee (principal); M19.09 Primary osteoarthritis, other specified site; R60.9 Edema, unspecified
CPT/HCPCS: 73721

== ENCOUNTER 2022-10-08 16:33 | Emergency (ER) | payer MEDICARE, OTHER ==
[~2022-10-08] VITALS: Ht 165.1 cm; Wt 105.2 kg
[2022-10-08] MEDS ORDERED: PRD50T PO (16:50)
[2022-10-08] MEDS ORDERED: CYCL10TA25 PO (16:50)
--- NOTE | 2022-10-08 16:51 | ED Neck-Back Pain/Injury ---
General Stated Complaint: HEAD/SHOULDER PAIN - FEVER - DIZZY Source of Information: Patient, Family () Exam Limitations: No Limitations History of Present Illness Date Seen by Provider: Oct 08, 2022 Time Seen by Provider: 16:36 Initial Comments 57-year-old female presents to the emergency department today for neck pain. Symptoms have been present for about 3 to 4 days. Pain is worse with any rotational movements of the neck and does occasionally radiate down her left neck and arm. No weakness numbness or tingling. She has used Tylenol without much relief. She does state that she has "night fevers." She has had these for "some time." When asked further she states for about 6 to 8 months. This has been worked up and ultimately she recently saw an "immune doctor." She states she was called today so that she can start on some antibiotics. She is not quite sure what these are for. She was told that she likely has a "immune disease." She has an appoint with them next week to discuss this further. She does not recall any injury to her neck. No sick contacts. When her neck pain flare she does have some intermittent dizziness described more as pain causing her legs to be weak. All other systems reviewed and negative except documented per HPI. Voice recognition software was used to help create this chart Allergies and Home Medications Allergies Coded Allergies: No Known Drug Allergies (Unverified , 03/01/09) Patient Home Medication List Home Medication List Reviewed: Yes Duloxetine HCl (Duloxetine HCl) 60 Mg Capsule.dr, 60 MG PO DAILY, (Reported) Entered as Reported by: JIM OSORIO on 11/19/20 1301 Lisinopril (Lisinopril) 40 Mg Tablet, 40 MG PO DAILY, (Reported) Entered as Reported by: JIM OSORIO on 11/19/20 1301 Methylprednisolone (Methylprednisolone Dose Pack) 4 Mg Tab.ds.pk, 4 MG PO UD Prescribed by: CARLOS MOORE on 04/14/21 5196 Multivitamin (Multi-Vitamin Daily) 1 Each Tablet, 1 EACH PO DAILY, (Reported) Entered as Reported by: JIM OSORIO on 10/25/15 1010 Pantoprazole Sodium (Pantoprazole Sodium) 40 Mg Tablet.dr, 40 MG PO DAILY, (Reported) Entered as Reported by: ERIKA SWAIN on 12/21/142019 Review of Systems Constitutional: see HPI Past Gxxmirb-Bzlflx-Khgiym Hx Patient Social History Tobacco Use?: No Use of E-Cig and/or Vaping dev: No Substance use?: No Alcohol Use?: No Immunizations Up To Date Tetanus Booster (TDap): More than 5yrs First/Initial COVID19 Vaccinat: NONE Second COVID19 Vaccination Noé: NONE Third COVID19 Vaccination Date: NONE Seasonal Allergies Seasonal Allergies: No Past Medical History Surgeries: Yes (BACK SX RODS PLACED, neck sx, nerve stimulator) Eye Surgery, Gallbladder, Hysterectomy, Orthopedic Respiratory: Yes (sleep apnea-uses cpap) Sleep Apnea Cardiac: Yes Hypertension Neurological: No Reproductive Disorders: Yes Female Reproductive Disorders: Polycystic 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 0.0oz. 104.797364um; 36.00 BMI Method:Stated General Appearance: No Apparent Distress, WD/WN HEENT: PERRL/EOMI, TMs Normal, Normal ENT Inspection, Pharynx Normal Neck: Full Range of Motion, Normal Inspection, Supple, Other (Tenderness pa lpation bilateral paraspinal musculature with no midline tenderness.) Cardiovascular: Regular Rate, Rhythm, No Edema, No Gallop, No JVD, No Murmur, Normal Peripheral Pulses Respiratory: Chest Non Tender, Lungs Clear, Normal Breath Sounds, No Accessory Muscle Use, No Respiratory Distress Gastrointestinal: No Organomegaly, Non Tender, Soft Extremity: Normal Capillary Refill, Non Tender, No Calf Tenderness Neurologic/Psychiatric: Alert, Oriented x3, No Motor/Sensory Deficits, Normal 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 She has no midline tenderness and has bilateral paraspinal tenderness. She has no weakness numbness or tingling but she does intermittently have radiation of her pain into her arm consistent with nerve type pain. We will go ahead and treat her conservatively with steroids, muscle relaxers and gentle stretching exercises. Advised follow with primary doctor should her symptoms persist. No current indication for imaging. Impression Primary Impression: Neck sprain Qualified Codes: S13.9XXA - Sprain of joints and ligaments of unspecified parts of neck, initial encounter Disposition: HOME, SELF-CARE Condition: Stable Departure-Patient Inst. Referrals: SIDDHARTHA ANDERSON (PCP/Family) Primary Care Physician Patient Instructions: Neck Sprain (DC) Add. Discharge Instructions: Use the steroid medication as prescribed daily. Take the first 1 as soon as you can tonight and then start to take them daily in the morning starting tomorrow. Until they are gone. Take the muscle relaxers as needed. If they make you too sleepy, cut them in half and use a half a tablet. Perform mild neck stretching exercises. Use Tylenol in addition to the above for neck pain. Increase your fluids at home. Return to the emergency department for any severe concerns for Scripts Cyclobenzaprine HCl (Cyclobenzaprine HCl) 10 Mg Tablet 10 MG PO TID for Muscle Spasms for 5 Days, #15 TAB Prov: JANEY TOMPKINS DO 10/08/22 Prednisone (Prednisone) 50 Mg Tab 50 MG PO DAILY for 5 Days, #5 TAB Prov: JANEY TOMPKINS DO 10/08/22 JANEY TOMPKINS DO Oct 08, 2022 16:51
[2022-10-08 16:54] VITALS: BP 144/81
== END 2022-10-08 16:54 | disposition home or self-care (01) ==
LOC: EDUNIT# 16:33 → ER 16:34
DX: S13.9XXA Sprain of joints and ligaments of unspecified parts of neck, initial encounter (principal); G47.30 Sleep apnea, unspecified; Z99.89 Dependence on other enabling machines and devices; Z28.310 Unvaccinated for COVID-19; Z98.890 Other specified postprocedural states; X58.XXXA Exposure to other specified factors, initial encounter
CPT/HCPCS: 99281

== ENCOUNTER 2023-02-15 12:30 | Emergency (ER) | payer MEDICARE, OTHER ==
[~2023-02-15] VITALS: Ht 165 cm; Wt 103.0 kg
[2023-02-15] MEDS ORDERED: NS IV 500 ML 500 ML IV ONE (13:15)
--- NOTE | 2023-02-15 13:20 | ED General ---
General Chief Complaint: Dizziness/Syncope Stated Complaint: COUGH/CONGESTION Source of Information: Patient Exam Limitations: No Limitations (JOANN ORELLANA APRN) History of Present Illness Date Seen by Provider: Feb 15, 2023 Time Seen by Provider: 12:48 Initial Comments 58-year-old female presents to the ER with reports of cough, chest tightness, shortness of air, low-grade fevers, and pressure in the top of her head starting approximately 4 days ago. She reports that she has also been having dizzy spells for the last 3 weeks. Reports that the dizzy spells are worse with movement, especially with standing up. Reports that she has difficulty walking without holding onto objects. She was able to walk in the room without difficulty without holding onto objects on my observation. She reports that she gets pneumonia and bronchitis approximately twice a year, thinks that she has one of these again because she has the same symptoms. Patient reports she just completed an antibiotic, states that she thinks she was being treated for UTI. She was taking amoxicillin. Cording to her chart, she was prescribed levofloxacin on 01/26/2023, I did not see amoxicillin recently prescribed. She denies abdominal pain, nausea, vomiting, diarrhea, dysuria. (JOANN ORELLANA APRN) Allergies and Home Medications Allergies Coded Allergies: No Known Drug Allergies (Unverified , 03/01/09) Patient Home Medication List Home Medication List Reviewed: Yes (JOANN ORELLANA APRN) Cyclobenzaprine HCl (Cyclobenzaprine HCl) 10 Mg Tablet, 10 MG PO TID Prescribed by: JANEY TOMPKINS MD on 10/08/22 1650 Duloxetine HCl (Duloxetine HCl) 60 Mg Capsule.dr, 60 MG PO DAILY, (Reported) Entered as Reported by: JIM OSORIO on 11/19/20 1301 Lisinopril (Lisinopril) 40 Mg Tablet, 40 MG PO DAILY, (Reported) Entered as Reported by: JIM OSORIO on 11/19/20 1301 Meclizine HCl (Meclizine HCl) 25 Mg Tablet, 25 MG PO TID Prescribed by: Joann Wing on 02/15/23 1456 Methylprednisolone (Methylprednisolone Dose Pack) 4 Mg Tab.ds.pk, 4 MG PO UD Prescribed by: CARLOS MOORE on 04/14/21 2346 Multivitamin (Multi-Vitamin Daily) 1 Each Tablet, 1 EACH PO DAILY, (Reported) Entered as Reported by: JIM OSORIO on 10/25/15 1010 Pantoprazole Sodium (Pantoprazole Sodium) 40 Mg Tablet.dr, 40 MG PO DAILY, (Reported) Entered as Reported by: ERIKA SWAIN on 12/21/142019 Prednisone (Prednisone) 50 Mg Tab, 50 MG PO DAILY Prescribed by: JANEY TOMPKINS MD on 10/08/22 1650 Review of Systems Review of Systems Constitutional: see HPI (JOANN ORELLANA APRN) Past Rztxfdn-Iatcxm-Zqddpx Hx Immunizations Up To Date Tetanus Booster (TDap): More than 5yrs First/Initial COVID19 Vaccinat: NONE Second COVID19 Vaccination Noé: NONE Third COVID19 Vaccination Date: NONE (JOANN ORELLANA APRN) Seasonal Allergies Seasonal Allergies: No (JOANN ORELLANA APRN) Past Medical History Surgeries: Yes (BACK SX RODS PLACED, neck sx, nerve stimulator) Eye Surgery, Gallbladder, Hysterectomy, Orthopedic Respiratory: Yes (sleep apnea-uses cpap) Sleep Apnea Cardiac: Yes Hypertension Neurological: No Reproductive Disorders: Yes Female Reproductive Disorders: Polycystic Ovarian Dis [employer] History: Hysterectomy Sexually Transmitted Disease: No HIV/AIDS: No Gastrointestinal: No Gastroesophageal Reflux Musculoskeletal: Yes Degenerate Disk Disease, Back Injury Endocrine: No Diabetes, Non-Insulin dep HEENT: No Cancer: No Psychosocial: Yes Anxiety Integumentary: No Blood Disorders: No Adverse Reaction/Blood Tranf: No (JOANN ORELLANA APRN) Family Medical History No Pertinent Family Hx (JOANN ORELLANA APRN) Physical Exam Vital Signs Vital Signs - First Documented 02/15/23 12:44 Temp 36.5 Pulse 91 Resp 14 B/P (MAP) 177/110 (132) Pulse Ox 100 O2 Delivery Room Air (BETTY YOO MD) Vital Signs Capillary Refill : (JOANN ORELLANA APRN) Height, Weight, BMI Height: 5'5.00" Weight: 230lbs. 0.0oz. 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) Results/Orders Lab Results Laboratory Tests Test 02/15/23 12:56 02/15/23 13:24 Range/Units Influenza Type A (RT-PCR) Not Detected Not Detecte Influenza Type B (RT-PCR) Not Detected Not Detecte SARS-CoV-2 RNA (RT-PCR) Not Detected Not Detecte White Blood Count 4.8 4.3-11.0 10^3/uL Red Blood Count 4.75 3.80-5.11 10^6/uL Hemoglobin 11.3 L 11.5-16.0 g/dL Hematocrit 37 35-52 % Mean Corpuscular Volume 79 L 80-99 fL Mean Corpuscular Hemoglobin 24 L 25-34 pg Mean Corpuscular Hemoglobin Concent 30 L 32-36 g/dL Red Cell Distribution Width 15.3 H 10.0-14.5 % Platelet Count 323 130-400 10^3/uL Mean Platelet Volume 9.9 9.0-12.2 fL Immature Granulocyte % (Auto) 0 % Neutrophils (%) (Auto) 53 42-75 % Lymphocytes (%) (Auto) 24 12-44 % Monocytes (%) (Auto) 18 H 0-12 % Eosinophils (%) (Auto) 4 0-10 % Basophils (%) (Auto) 1 0-10 % Neutrophils # (Auto) 2.5 1.8-7.8 10^3/uL Lymphocytes # (Auto) 1.2 1.0-4.0 10^3/uL Monocytes # (Auto) 0.9 0.0-1.0 10^3/uL Eosinophils # (Auto) 0.2 0.0-0.3 10^3/uL Basophils # (Auto) 0.1 0.0-0.1 10^3/uL Immature Granulocyte # (Auto) 0.0 0.0-0.1 10^3/uL Prothrombin Time 13.6 12.2-14.7 SEC INR Comment 1.0 0.8-1.4 Activated Partial Thromboplast Time 26 24-35 SEC Sodium Level 140 135-145 MMOL/L Potassium Level 4.3 3.6-5.0 MMOL/L Chloride Level 106 98-107 MMOL/L Carbon Dioxide Level 23 21-32 MMOL/L Anion Gap 11 5-14 MMOL/L Blood Urea Nitrogen 12 7-18 MG/DL Creatinine 0.71 0.60-1.30 MG/DL Estimat Glomerular Filtration Rate 98 BUN/Creatinine Ratio 17 Glucose Level 100 70-105 MG/DL Calcium Level 9.2 8.5-10.1 MG/DL Corrected Calcium 9.2 8.5-10.1 MG/DL Magnesium Level 2.2 1.6-2.4 MG/DL Total Bilirubin 0.3 0.1-1.0 MG/DL Aspartate Amino Transf (AST/SGOT) 18 5-34 U/L Alanine Aminotransferase (ALT/SGPT) 14 0-55 U/L Alkaline Phosphatase 167 H 40-136 U/L Troponin I < 0.028 <0.028 NG/ML Total Protein 7.2 6.4-8.2 GM/DL Albumin 4.0 3.2-4.5 GM/DL (BETTY YOO MD) Vital Signs/I&O 02/15/23 02/15/23 12:44 15:05 Temp 36.5 36.0 Pulse 91 84 Resp 14 16 B/P (MAP) 177/110 (132) 124/72 Pulse Ox 100 99 O2 Delivery Room Air Room Air 02/15/23 23:59 Intake Total 500 ml Balance 500 ml (BETTY YOO MD) Vital Signs/I&O Capillary Refill : (JOANN ORELLANA APRN) Progress Note : Progress Note Patient seen and evaluated, resting in bed, no acute distress. Patient was able to ambulate in room without onto any objects with steady gait. Based on exam and symptoms, workup initiated including CBC, CMP, magnesium, troponin, coags, EKG, chest x-ray, COVID and flu swab, CT head. 500 mL IV fluids ordered. 1408 Labs, imaging, EKG reviewed. CBC shows slightly decreased hemoglobin 11.3, normal hematocrit, decreased MCV 79. CMP grossly normal. Alkaline phosphatase slightly elevated 167. Troponin negative. Magnesium normal. Coags normal. COVID and flu negative. Chest x-ray shows no acute cardiopulmonary process. CT head shows no acute intracranial abnormality. Toradol ordered for patient's complaint of pressure on the top of her head, meclizine ordered for symptoms. 1451 patient reevaluated. Patient reports that the pressure in the top of her head still present. Discussed results with patient. I think that her dizziness may be BPPV. Will discharge with prescription for meclizine. Other symptoms likely related to URI, patient does not require antibiotics at this time. Patient instructed to follow-up with primary care provider. Patient is stable for discharge. Discharge instructions and return precautions provided. (JOANN ORELLANA APRN) ECG Initial ECG Impression Date: Feb 15, 2023 Initial ECG Impression Time: 13:27 Initial ECG Rate: 78 Initial ECG Rhythm: Normal Sinus Initial ECG Intervals: Normal Initial ECG Impression: Nonspecific Changes Initial ECG Comparisson: Unchanged (JOANN ORELLANA APRN) Diagnostic Imaging Diagonstic Imaging: Xray Plain Films/CT/US/NM/MRI: chest Comments [facility] [place], [place] NAME: [facility] REC#: [id number] PT STATUS: REG ER : 1965 PHYSICIAN: JOANN ORELLANA APRN ADMIT DATE: 02/15/23/ER Signed Date of Exam:02/15/23 CHEST 1 VIEW, AP/PA ONLY EXAMINATION: Chest 1 view HISTORY: Chest pain COMPARISON: 04/14/2021. FINDINGS: The lungs are clear without edema or pneumonia. No pleural effusion or pneumothorax. Heart size is normal. IMPRESSION: 1. Clear lungs. Dictated by: Dictated on workstation # [id number] Dict: 02/15/23 1350 Trans: 02/15/231415 CV [id number] Interpreted by: KELLEY DELVALLE MD Electronically signed by: KELLEY DELVALLE MD 02/15/23 141 Diagonstic Imaging: CT Plain Films/CT/US/NM/MRI: head Comments [facility], [place] NAME: [facility] REC#: [id number] PT STATUS: REG ER : 1965 PHYSICIAN: JOANN ORELLANA APRN ADMIT DATE: 02/15/23/ER Signed Date of Exam:02/15/23 CT HEAD WO EXAMINATION: CT head without contrast. TECHNIQUE: Multiple contiguous axial images were obtained through the brain without the use of intravenous contrast. All CT scans use one or more of the following dose optimizing techniques: automated exposure control, MA and/or KvP adjustment based on patient size and exam type or iterative reconstruction. HISTORY: dizziness COMPARISON: 04/09/2013 FINDINGS: The jaquez-white matter differentiation is normal. No mass effect or midline shift. The ventricles are normal in size and configuration. Basilar cisterns are patent. There are no intra- or extra-axial fluid collections. There is no intracranial hemorrhage. The orbits are normal. Paranasal sinuses are normal. Mastoid air cells are clear. No soft tissue abnormality is seen. No osseus lesions or fractures are seen. IMPRESSION: 1. No acute intracranial abnormality. Dictated by: Dictated on workstation # [id number] Dict: 02/15/23 1348 Trans: 02/15/231415 CV [id number] Interpreted by: KELLEY DELVALLE MD Electronically signed by: KELLEY DELVALLE MD 02/15/23 141 (JOANN ORELLANA APRN) Departure Impression Primary Impression: Dizziness Additional Impression: URI (upper respiratory infection) Disposition: 01 HOME, SELF-CARE Condition: Stable Departure-Patient Inst. Decision time for Depature: 14:54 (JOANN ORELLANA APRN) Referrals: JONNATHAN VANCE MD (PCP/Family) Primary Care Physician Patient Instructions: Vertigo (a Type of Dizziness) (DC) Add. Discharge Instructions: Your dizziness may be related to BPPV, benign paroxysmal positional vertigo. Take meclizine as needed for dizziness. It may make you sleepy. Follow-up with your primary care provider. Return for any new, concerning, or worsening symptoms. All discharge instructions reviewed with patient and/or family. Voiced understanding. Scripts Meclizine HCl (Meclizine HCl) 25 Mg Tablet 25 MG PO TID, #21 TAB 0 Refills Prov: JOANN ORELLANA APRN 02/15/23 ATTENDING PHYSICIAN NOTE: I was physically present as attending physician in the emergency department during the care of this patient, but I was not directly involved in the decision making or delivery of care for this patient. (BETTY YOO MD) JOANN ORELLANA APRN Feb 15, 2023 13:20 BETTY YOO MD Feb 16, 2023 09:42
[2023-02-15 13:30] LABS: BASOPHILS # (AUTO) 0.1 10^3/uL (0.0-0.1); BASOPHILS % (AUTO) 1 % (0-10); EOSINOPHILS # (AUTO) 0.2 10^3/uL (0.0-0.3); EOSINOPHILS % (AUTO) 4 % (0-10); HEMATOCRIT 37 % (35-52); HEMOGLOBIN 11.3 g/dL (11.5-16.0); LYMPHOCYTES # (AUTO) 1.2 10^3/uL (1.0-4.0); LYMPHOCYTES % (AUTO) 24 % (12-44); MEAN CORPUSCULAR HEMOGLOBIN 24 pg (25-34); MEAN CORPUSCULAR HGB CONC 30 g/dL (32-36); MEAN CORPUSCULAR VOLUME 79 fL (80-99); MEAN PLATELET VOLUME 9.9 fL (9.0-12.2); MONOCYTES # (AUTO) 0.9 10^3/uL (0.0-1.0); MONOCYTES % (AUTO) 18 % (0-12); NEUTROPHILS # (AUTO) 2.5 10^3/uL (1.8-7.8); NEUTROPHILS % (AUTO) 53 % (42-75); PLATELET COUNT 323 10^3/uL (130-400); WHITE BLOOD COUNT 4.8 10^3/uL (4.3-11.0)
[2023-02-15 13:38] LABS: CHLORIDE 106 MMOL/L (98-107); POTASSIUM 4.3 MMOL/L (3.6-5.0); SODIUM 140 MMOL/L (135-145)
[2023-02-15 13:39] LABS: CALCIUM 9.2 MG/DL (8.5-10.1)
[2023-02-15 13:40] LABS: GLUCOSE 100 MG/DL (70-105); PROTHROMBIN TIME PATIENT 13.6 SEC (12.2-14.7)
[2023-02-15 13:41] LABS: TOTAL PROTEIN 7.2 GM/DL (6.4-8.2)
[2023-02-15 13:42] LABS: BILIRUBIN,TOTAL 0.3 MG/DL (0.1-1.0); CARBON DIOXIDE 23 MMOL/L (21-32)
[2023-02-15 13:44] LABS: ALKALINE PHOSPHATASE 167 U/L (40-136); CREATININE SERUM 0.71 MG/DL (0.60-1.30); GFR ESTIMATED 98
[2023-02-15 13:45] LABS: BUN/CREATININE RATIO 17
[2023-02-15 13:47] LABS: ALANINE AMINOTRANSFERASE 14 U/L (0-55); MAGNESIUM 2.2 MG/DL (1.6-2.4)
--- NOTE | 2023-02-15 13:51 | Diagnostic Imaging Report ---
EXAMINATION: CT head without contrast. TECHNIQUE: Multiple contiguous axial images were obtained through the brain without the use of intravenous contrast. All CT scans use one or more of the following dose optimizing techniques: automated exposure control, MA and/or KvP adjustment based on patient size and exam type or iterative reconstruction. HISTORY: dizziness COMPARISON: 04/09/2013 FINDINGS: The jaquez-white matter differentiation is normal. No mass effect or midline shift. The ventricles are normal in size and configuration. Basilar cisterns are patent. There are no intra- or extra-axial fluid collections. There is no intracranial hemorrhage. The orbits are normal. Paranasal sinuses are normal. Mastoid air cells are clear. No soft tissue abnormality is seen. No osseus lesions or fractures are seen. IMPRESSION: 1. No acute intracranial abnormality. Dictated by: Dictated on workstation # [id number]
--- NOTE | 2023-02-15 13:52 | Diagnostic Imaging Report ---
EXAMINATION: Chest 1 view HISTORY: Chest pain COMPARISON: 04/14/2021. FINDINGS: The lungs are clear without edema or pneumonia. No pleural effusion or pneumothorax. Heart size is normal. IMPRESSION: 1. Clear lungs. Dictated by: Dictated on workstation # [id number]
[2023-02-15] MEDS ORDERED: MECLIZINE 25 MG TABLET PO ONE (14:15)
[2023-02-15] MEDS ORDERED: KETOROLAC INJ 15 MG/ML VIAL IVP ONE (14:15)
[2023-02-15] MEDS ORDERED: MECL-291 PO (14:56)
[2023-02-15 15:05] VITALS: BP 124/72
== END 2023-02-15 15:08 | disposition home or self-care (01) ==
LOC: EDUNIT# 12:30 → ER 12:32
DX: J06.9 Acute upper respiratory infection, unspecified (principal); R42 Dizziness and giddiness; Z28.310 Unvaccinated for COVID-19
CPT/HCPCS: 36415; 70450; 71045; 80053; 83735; 84484; 85025; 85610; 85730; 87636; 93005; 93041